=== PATIENT | female | born 1955 | race American Indian/Alaskan Native ===

== ENCOUNTER 2017-03-19 23:41 | Inpatient (IN) | payer BC ==
[2017-03-20 00:36] LABS: BASO % 0.3 % (0.0-2.0); EOS % 0.1 % (0.0-4.0); HEMOGLOBIN 10.7 g/dL (11.0-16.0); LYMPH # 0.6 K/uL (1.0-4.3); LYMPH % 6.5 % (20.0-40.0); MEAN CELL VOLUME 87.6 fL (81.0-99.0); MEAN PLATELET VOLUME 8.5 fL (7.2-11.7); NEUT # 7.2 K/uL (1.8-7.0); NEUT % 82.1 % (50.0-75.0); NRBC % 1.6 % (0.0-2.0); PLATELET COUNT 88 K/uL (130-400); RBC 3.82 Mil/uL (3.80-5.20); RED CELL DISTRIBUTION WIDTH 21.5 % (11.5-14.5); WHITE BLOOD COUNT 8.8 K/uL (4.8-10.8)
[2017-03-20 00:40] LABS: VENOUS BLOOD GAS BASE EXCESS 3.3 mmol/L (0.0-2.0); VENOUS BLOOD GAS PCO2 48 mmHg (40-60); VENOUS BLOOD GAS PO2 35 mm/Hg (30-55); VENOUS BLOOD PH 7.39 (7.32-7.43)
[2017-03-20] MEDS ORDERED: Lactated Ringer's 1,000 ML IVB STA (00:44)
[2017-03-20 00:49] LABS: B-TYPE NATRIURETIC PEPTIDE 3190 pg/mL (0-900)
--- NOTE | 2017-03-20 00:55 | C.PDOC ---
Time Seen by Provider: 03/19/17 23:52 Chief Complaint (Nursing): Weakness/Neurological Deficit History Per: Patient, Family Onset/Duration Of Symptoms: Days (few) Current Symptoms Are (Timing): Worse Current Symptoms: Pain in legs. Generalized weakness. Seizure Or Post-ictal Symptoms: None Possible Causative Factor(s): Diurectics, Decreased PO Intake Fall Associated With With Symptoms: No Severity: Severe Recent travel outside of the [place]: No Additional History Per: Prior Records - Symptoms Of CVA Associated Symptoms: Decreased Ability To Walk. denies: Impaired Speech, Seizure Activity, New Vision Deficit(Left), New Vision Deficit(Right), New Confusion Current Coumadin Use?: No Recent Head Trauma: No Past Medical History Reviewed: Historical Data, Nursing Documentation, Vital Signs Vital Signs: Last Vital Signs Temp 102.3 F H 03/20/17 00:53 Pulse 120 H 03/19/17 23:42 Resp 28 H 03/19/17 23:42 BP 128/86 03/19/17 23:42 Pulse Ox - Medical History PMH: CHF (?), HTN, Rheumatoid Arthritis Other PMH: Lupus Surgical History: No Surg Hx Family History: States: Unknown Family Hx - Social History Hx Alcohol Use: No Hx Substance Use: No Review Of Systems Except As Marked, All Systems Reviewed And Found Negative. Constitutional: Positive for: Chills (?), Weakness Cardiovascular: Negative for: Chest Pain Respiratory: Negative for: Shortness of Breath Gastrointestinal: Positive for: Diarrhea (?). Negative for: Vomiting, Abdominal Pain Musculoskeletal: Positive for: Leg Pain (b/l). Negative for: Neck Pain, Back Pain Neurological: Negative for: Numbness, Confusion, Seizures, Altered Mental Status , Headache Physical Exam - Physical Exam Appears: In Acute Distress, Chronically Ill Skin: Normal Color, Warm, Dry Head: Atraumatic Eye(s): bilateral: PERRL, EOMI Oral Mucosa: Dry Neck: Normal ROM, Supple Cardiovascular: Rhythm Regular (tachycardia) Respiratory: Normal Breath Sounds, No Accessory Muscle Use Gastrointestinal/Abdominal: Soft, No Tenderness Back: No CVA Tenderness, Other (Stage 2 sacral ulcers) Extremity: Normal ROM, Pedal Edema (b/l), Calf Tenderness (b/l) Neurological/Psych: Oriented x3, Normal Sensation, Other (Moving all extremites) Gait: Unable To Assess ED Course And Treatment - Laboratory Results Result Diagrams: 03/20/17 00:33 03/20/17 00:19 ECG: Interpreted By Me, Viewed By Me ECG Rhythm: Sinus Tachycardia, Nonspecific Changes ECG Interpretation: Abnormal Interpretation Of ECG: Artifacts due to tremor Rate From EC - Radiology CXR: Interpreted by Me, Viewed By Me CXR Interpretation: Yes: No Acute Disease Progress Note: Pt was found to be hypoglycemic upon ED arrival. Pt was given juice. Disposition - Disposition Disposition Time: 01:00 Condition: SERIOUS - Clinical Impression Clinical Impression: Hypoglycemia, Fever, Leg pain, bilateral Physician Patient Turnover Patient Signed Over To: Tristin Murillo Handoff Comments: to f/up labs and reassess pt after fluids and order antibiotic based on source of infection.
[2017-03-20 00:58] LABS: ALB/GLOB RATIO 0.7 (1.0-2.1); ALBUMIN 3.2 g/dL (3.5-5.0); ALT/SGPT 59 U/L (9-52); AST/SGOT 96 U/L (14-36); BLOOD UREA NITROGEN 69 mg/dL (7-17); CALCIUM 8.5 mg/dl (8.6-10.4); GFR AFRICAN-AMERICAN > 60; GFR NON-AFRICAN AMERICAN 50
[2017-03-20 01:02] LABS: INR 1.3; PROTHROMBIN TIME 14.8 SECONDS (9.7-12.2)
[2017-03-20 01:29] LABS: SQUAMOUS EPITHIAL 4 /hpf (0-5); URINE AMORPHOUS SEDIMENT OCC /ul (<OCC); URINE BILIRUBIN NEGATIVE (NEGATIVE); URINE BLOOD 1+ (NEGATIVE); URINE CLARITY Hazy (Clear); URINE COLOR Yellow (YELLOW); URINE GLUCOSE (UA) NORMAL (Normal); URINE LEUKOCYTE ESTERASE 3+ Leu/uL (Negative); URINE NITRATE NEGATIVE (NEGATIVE); URINE PROTEIN NEGATIVE (NEGATIVE); URINE UROBILINOGEN NORMAL mg/dL (0.2-1.0)
[2017-03-20 01:37] LABS: BANDS 4 % (0-2); LYMPHOCYTE 7 % (20-40); MONOCYTE 7 % (0-10); NEUTROPHIL 82 % (50-75); NUCLEATED RED BLOOD CELL 1 % (0-0); PLATELET ESTIMATE DECREASED (NORMAL); TOTAL CELLS COUNTED 100
[2017-03-20] MEDS ORDERED: Moxifloxacin IV 400mg/250ml NS 400 MG/250 ML BAG IVPB ONE ×2 (02:13→02:22)
[2017-03-20 02:36] LABS: FREE T4 2.22 ng/dL (0.78-2.19)
[2017-03-20] MEDS ORDERED: Lactated Ringer's 1,000 ML IV ONE (02:58)
[2017-03-20] MEDS ORDERED: Vancomycin 1 gm/NS 200 ml 1 GM/200 ML BAG IVPB STA (03:10)
[2017-03-20 04:11] LABS: VENOUS BLOOD GAS BASE EXCESS 3.3 mmol/L (0.0-2.0); VENOUS BLOOD GAS PCO2 41 mmHg (40-60); VENOUS BLOOD GAS PO2 23 mm/Hg (30-55); VENOUS BLOOD PH 7.44 (7.32-7.43)
[2017-03-20 04:19] LABS: INR 1.4; PROTHROMBIN TIME 16.2 SECONDS (9.7-12.2)
[2017-03-20 04:58] LABS: BASO % 0.4 % (0.0-2.0); EOS % 0.1 % (0.0-4.0); LYMPH # 0.3 K/uL (1.0-4.3); LYMPH % 3.8 % (20.0-40.0); MEAN CELL VOLUME 87.5 fL (81.0-99.0); MEAN CORPUSCULAR HEMOGLOBIN 27.8 pg (27.0-31.0); MEAN CORPUSCULAR HGB CONC 31.8 g/dL (33.0-37.0); MEAN PLATELET VOLUME 8.2 fL (7.2-11.7); MONO # 1.2 K/uL (0.0-0.8); MONO % 16.2 % (0.0-10.0); NEUT # 5.8 K/uL (1.8-7.0); NEUT % 79.5 % (50.0-75.0); NRBC % 0.2 % (0.0-2.0); PLATELET COUNT 49 K/uL (130-400); RBC 2.15 Mil/uL (3.80-5.20); RED CELL DISTRIBUTION WIDTH 21.1 % (11.5-14.5); WHITE BLOOD COUNT 7.3 K/uL (4.8-10.8)
[2017-03-20 05:21] LABS: ALB/GLOB RATIO 0.8 (1.0-2.1); ALBUMIN 1.8 g/dL (3.5-5.0); ALT/SGPT 40 U/L (9-52); AST/SGOT 53 U/L (14-36); BLOOD UREA NITROGEN 54 mg/dL (7-17); CALCIUM 6.8 mg/dl (8.6-10.4); GFR AFRICAN-AMERICAN > 60; GFR NON-AFRICAN AMERICAN > 60; MAGNESIUM 1.5 mg/dL (1.6-2.3)
[2017-03-20 05:42] LABS: BANDS 2 % (0-2); BASOPHIL 1 % (0-2); EOSINOPHIL 2 % (0-4); LYMPHOCYTE 20 % (20-40); MONOCYTE 21 % (0-10); NEUTROPHIL 51 % (50-75); PLATELET ESTIMATE MARKEDLY DECREASED (NORMAL); REACTIVE LYMPHOCYTES 3 % (0-0); TOTAL CELLS COUNTED 100
[2017-03-20] MEDS: Aztreonam 2 GM in Sodium Chloride 0.9% 100 ML IVPB SCH ×3 (05:43→19:32)
[2017-03-20] MEDS ORDERED: Sodium Chloride 0.9% 1,000 ML IV ONE (06:03)
--- NOTE | 2017-03-20 06:19 | CP.PCM.CON ---
History of Present Illness - History of Present Illness History of Present Illness: 61 F with h/o lupus on leflunomide and hydroxychloroquine, h/l leg edema on diuretic, came to the ER due to not improving swelling in both the legs, causing severe pain, and difficult in walking. The worsening in the leg swelling with pain has happened for last 3 wks and patient has been on 3 different diuretics but unsure which once she taking. In ER patient had fever of 102, elevated bun, both legs below knees swelling and pain, hypotensive, elevated lactic acid of 5 noticed. Patient given 4 lit of fluid in ER and avelox / vancomycin started. Denies abd/chest/head pain, any cough, patent was unaware any fever at home. PMH as above Surg none Meds above, lasix, hctz/trimtarine/, metolozone, ibuprofen Family history not contributory Social stopped smoking about 10ys back, denies alcohol Allergies PCN, sulfa, was told during childhood she was allergic. Review of Systems - Review of Systems All systems: reviewed and no additional remarkable complaints except (HPI) Past Patient History - Past Medical History & Family History Past Medical History?: Yes - Past Social History Smoking Status: Former Smoker Alcohol: None Drugs: Denies Home Situation {Lives}: With Family Domestic Violence: Negative - CARDIAC Hx Cardiac Disorders: Yes Hx Congestive Heart Failure: Yes Hx Hypertension: Yes - PULMONARY Hx Respiratory Disorders: No - NEUROLOGICAL Hx Neurological Disorder: No - HEENT Hx HEENT Problems: No - RENAL Hx Chronic Kidney Disease: No - ENDOCRINE/METABOLIC Hx Endocrine Disorders: Yes Hx Systemic Lupus Erythematosus: Yes - HEMATOLOGICAL/ONCOLOGICAL Hx Blood Disorders: No - INTEGUMENTARY Hx Dermatological Problems: Yes Other/Comment: multiple open wound bilateral buttocks and right thigh - MUSCULOSKELETAL/RHEUMATOLOGICAL Hx Musculoskeletal Disorders: Yes Hx Falls: Yes Hx Rheumatoid Arthritis: Yes - GASTROINTESTINAL Hx Gastrointestinal Disorders: No - GENITOURINARY/GYNECOLOGICAL Hx Genitourinary Disorders: No - PSYCHIATRIC Hx Psychophysiologic Disorder: No Hx Substance Use: No - SURGICAL HISTORY Hx Surgeries: No - ANESTHESIA Hx Anesthesia: No Meds Allergies/Adverse Reactions: Allergies Allergy/AdvReac Type Severity Reaction Status Date / Time Penicillins Allergy Verified 03/19/17 23:45 Sulfa (Sulfonamide Allergy Verified 03/19/17 23:45 Antibiotics) - Medications Medications: Current Medications Aztreonam 2 gm/ Sodium (Chloride) 100 mls @ 200 mls/hr IVPB Q8H IMAN Last Admin: 03/20/17 05:43 Dose: 200 mls/hr Vancomycin/Sodium Chloride (Vancomycin 1 Gm/Ns 200 Ml) 1 gm in 200 mls @ 133 mls/hr IVPB Q12H IMAN Stop: 03/25/17 15:31 Pantoprazole Sodium (Protonix Ec Tab) 40 mg PO DAILY IMAN Physical Exam - Additional Findings Additional findings: * HEENT ROSENDO, no rigidity * Neck supple * Chest Clear * CVS regular, s1s2, hr in about 110/min * PA soft, nt bs present * Ext swelling tenderness, pitting edema in both left below the knees, also both legs above knee posteriorly she is warm and tender, superficial epidermis peeling noticed in left lower leg. Pulses reduced in both feet. 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, moves all ext, confused about use of the medication and history of the events * Skin dry in upper limbs Results - Vital Signs Recent Vital Signs: Last Vital Signs Temp 99 F 03/20/17 03:40 Pulse 93 H 03/20/17 05:00 Resp 19 03/20/17 05:00 BP 80/41 L 03/20/17 04:35 Pulse Ox 100 03/20/17 05:00 - Labs Result Diagrams: 03/20/17 04:56 03/20/17 04:56 Labs: Laboratory Results - last 24 hr 03/19/17 03/20/17 03/20/17 23:49 00:19 00:19 WBC RBC Hgb Hct MCV MCH MCHC RDW Plt Count MPV Neut % (Auto) Lymph % (Auto) [place] % (Auto) Eos % (Auto) Baso % (Auto) Neut # Lymph # [place] # Eos # Baso # Neutrophils % (Manual) Band Neutrophils % Lymphocytes % (Manual) Reactive Lymphs % Monocytes % (Manual) Eosinophils % (Manual) Basophils % (Manual) Nucleated RBC % Platelet Estimate PT INR APTT pO2 VBG pH VBG pCO2 VBG HCO3 VBG Total CO2 VBG O2 Sat (Calc) VBG Base Excess VBG Potassium Glucose Lactate Crit Value Called To Crit Value Called By Crit Value Read Back Blood Gas Notified Time Sodium 135 Potassium 3.5 L Chloride 91 L Carbon Dioxide 32 H Anion Gap 15 BUN 69 H Creatinine 1.1 Est GFR ( Amer) > 60 Est GFR (Non-Af Amer) 50 POC Glucose (mg/dL) 39 L 61 L Random Glucose 90 Calcium 8.5 L Phosphorus 3.2 Magnesium 2.0 Total Bilirubin 1.6 H AST 96 H ALT 59 H Alkaline Phosphatase 182 H Troponin I 0.0890 C-React Prot High Sens NT-Pro-B Natriuret Pep 3190 H Total Protein 7.8 Albumin 3.2 L Globulin 4.6 H Albumin/Globulin Ratio 0.7 L Free T4 TSH 3rd Generation Cortisol AM Sample Venous Blood Potassium Urine Color Urine Clarity Urine pH Ur Specific [place] Urine Protein Urine Glucose (UA) Urine Ketones Urine Blood Urine Nitrate Urine Bilirubin Urine Urobilinogen Ur Leukocyte Esterase Urine WBC (Auto) Urine RBC (Auto) Ur Squamous Epith Cells Amorphous Sediment 03/20/17 03/20/17 03/20/17 00:24 00:33 00:33 WBC 8.8 RBC 3.82 Hgb 10.7 L Hct 33.5 L MCV 87.6 MCH 28.0 MCHC 32.0 L RDW 21.5 H Plt Count 88 L MPV 8.5 Neut % (Auto) 82.1 H Lymph % (Auto) 6.5 L [place] % (Auto) 11.0 H Eos % (Auto) 0.1 Baso % (Auto) 0.3 Neut # 7.2 H Lymph # 0.6 L [place] # 1.0 H Eos # 0.0 Baso # 0.0 Neutrophils % (Manual) 82 H Band Neutrophils % 4 H Lymphocytes % (Manual) 7 L Reactive Lymphs % Monocytes % (Manual) 7 Eosinophils % (Manual) Basophils % (Manual) Nucleated RBC % 1 H Platelet Estimate Decreased L PT INR APTT pO2 35 VBG pH 7.39 VBG pCO2 48 VBG HCO3 26.7 VBG Total CO2 30.6 H VBG O2 Sat (Calc) 61.3 VBG Base Excess 3.3 H VBG Potassium 2.6 L Glucose 82 Lactate 5.2 H* Crit Value Called To Dr vargas Crit Value Called By Dianelys rodriguez rt Crit Value Read Back Y Blood Gas Notified Time 39 Sodium 138.0 Potassium Chloride 100.0 Carbon Dioxide Anion Gap BUN Creatinine Est GFR ( Amer) Est GFR (Non-Af Amer) POC Glucose (mg/dL) Random Glucose Calcium Phosphorus Magnesium Total Bilirubin AST ALT Alkaline Phosphatase Troponin I C-React Prot High Sens NT-Pro-B Natriuret Pep Total Protein Albumin Globulin Albumin/Globulin Ratio Free T4 2.22 H TSH 3rd Generation 1.65 Cortisol AM Sample Venous Blood Potassium 2.6 L Urine Color Urine Clarity Urine pH Ur Specific [place] Urine Protein Urine Glucose (UA) Urine Ketones Urine Blood Urine Nitrate Urine Bilirubin Urine Urobilinogen Ur Leukocyte Esterase Urine WBC (Auto) Urine RBC (Auto) Ur Squamous Epith Cells Amorphous Sediment 03/20/17 03/20/17 03/20/17 00:33 00:45 01:22 WBC RBC Hgb Hct MCV MCH MCHC RDW Plt Count MPV Neut % (Auto) Lymph % (Auto) [place] % (Auto) Eos % (Auto) Baso % (Auto) Neut # Lymph # [place] # Eos # Baso # Neutrophils % (Manual) Band Neutrophils % Lymphocytes % (Manual) Reactive Lymphs % Monocytes % (Manual) Eosinophils % (Manual) Basophils % (Manual) Nucleated RBC % Platelet Estimate PT 14.8 H INR 1.3 APTT 33 pO2 VBG pH VBG pCO2 VBG HCO3 VBG Total CO2 VBG O2 Sat (Calc) VBG Base Excess VBG Potassium Glucose Lactate Crit Value Called To Crit Value Called By Crit Value Read Back Blood Gas Notified Time Sodium Potassium Chloride Carbon Dioxide Anion Gap BUN Creatinine Est GFR ( Amer) Est GFR (Non-Af Amer) POC Glucose (mg/dL) 84 Random Glucose Calcium Phosphorus Magnesium Total Bilirubin AST ALT Alkaline Phosphatase Troponin I C-React Prot High Sens NT-Pro-B Natriuret Pep Total Protein Albumin Globulin Albumin/Globulin Ratio Free T4 TSH 3rd Generation Cortisol AM Sample Venous Blood Potassium Urine Color Yellow Urine Clarity Hazy Urine pH 5.0 Ur Specific [place] 1.013 Urine Protein Negative Urine Glucose (UA) Normal Urine Ketones Negative Urine Blood 1+ H Urine Nitrate Negative Urine Bilirubin Negative Urine Urobilinogen Normal Ur Leukocyte Esterase 3+ H Urine WBC (Auto) 9 H Urine RBC (Auto) 21 H Ur Squamous Epith Cells 4 Amorphous Sediment Occ H 03/20/17 03/20/17 03/20/17 02:16 04:08 04:08 WBC RBC Hgb Hct MCV MCH MCHC RDW Plt Count MPV Neut % (Auto) Lymph % (Auto) [place] % (Auto) Eos % (Auto) Baso % (Auto) Neut # Lymph # [place] # Eos # Baso # Neutrophils % (Manual) Band Neutrophils % Lymphocytes % (Manual) Reactive Lymphs % Monocytes % (Manual) Eosinophils % (Manual) Basophils % (Manual) Nucleated RBC % Platelet Estimate PT INR APTT pO2 23 L VBG pH 7.44 H VBG pCO2 41 VBG HCO3 26.0 VBG Total CO2 29.1 H VBG O2 Sat (Calc) 35.7 L VBG Base Excess 3.3 H VBG Potassium 2.5 L* Glucose 96 Lactate 5.7 H* Crit Value Called To [place] de rn Crit Value Called By Paz machine cloth measurer Crit Value Read Back Y Blood Gas Notified Time 411 Sodium 132.0 Potassium Chloride 99.0 Carbon Dioxide Anion Gap BUN Creatinine Est GFR ( Amer) Est GFR (Non-Af Amer) POC Glucose (mg/dL) 132 H Random Glucose Calcium Phosphorus Magnesium Total Bilirubin AST ALT Alkaline Phosphatase Troponin I C-React Prot High Sens NT-Pro-B Natriuret Pep Total Protein Albumin Globulin Albumin/Globulin Ratio Free T4 TSH 3rd Generation Cortisol AM Sample 27.7 H Venous Blood Potassium 2.5 L* Urine Color Urine Clarity Urine pH Ur Specific [place] Urine Protein Urine Glucose (UA) Urine Ketones Urine Blood Urine Nitrate Urine Bilirubin Urine Urobilinogen Ur Leukocyte Esterase Urine WBC (Auto) Urine RBC (Auto) Ur Squamous Epith Cells Amorphous Sediment 03/20/17 03/20/17 03/20/17 04:08 04:08 04:56 WBC 7.3 RBC 2.15 L Hgb 6.0 L* D Hct 18.8 L MCV 87.5 MCH 27.8 MCHC 31.8 L RDW 21.1 H Plt Count 49 L D MPV 8.2 Neut % (Auto) 79.5 H Lymph % (Auto) 3.8 L [place] % (Auto) 16.2 H Eos % (Auto) 0.1 Baso % (Auto) 0.4 Neut # 5.8 Lymph # 0.3 L [place] # 1.2 H Eos # 0.0 Baso # 0.0 Neutrophils % (Manual) 51 Band Neutrophils % 2 Lymphocytes % (Manual) 20 Reactive Lymphs % 3 H Monocytes % (Manual) 21 H Eosinophils % (Manual) 2 Basophils % (Manual) 1 Nucleated RBC % Platelet Estimate Markedly decreased L PT 16.2 H INR 1.4 APTT 38 H D pO2 VBG pH VBG pCO2 VBG HCO3 VBG Total CO2 VBG O2 Sat (Calc) VBG Base Excess VBG Potassium Glucose Lactate Crit Value Called To Crit Value Called By Crit Value Read Back Blood Gas Notified Time Sodium Potassium Chloride Carbon Dioxide Anion Gap BUN Creatinine Est GFR ( Amer) Est GFR (Non-Af Amer) POC Glucose (mg/dL) Random Glucose Calcium Phosphorus Magnesium Total Bilirubin AST ALT Alkaline Phosphatase Troponin I C-React Prot High Sens > 15.00 H NT-Pro-B Natriuret Pep Total Protein Albumin Globulin Albumin/Globulin Ratio Free T4 TSH 3rd Generation Cortisol AM Sample Venous Blood Potassium Urine Color Urine Clarity Urine pH Ur Specific [place] Urine Protein Urine Glucose (UA) Urine Ketones Urine Blood Urine Nitrate Urine Bilirubin Urine Urobilinogen Ur Leukocyte Esterase Urine WBC (Auto) Urine RBC (Auto) Ur Squamous Epith Cells Amorphous Sediment 03/20/17 04:56 WBC RBC Hgb Hct MCV MCH MCHC RDW Plt Count MPV Neut % (Auto) Lymph % (Auto) [place] % (Auto) Eos % (Auto) Baso % (Auto) Neut # Lymph # [place] # Eos # Baso # Neutrophils % (Manual) Band Neutrophils % Lymphocytes % (Manual) Reactive Lymphs % Monocytes % (Manual) Eosinophils % (Manual) Basophils % (Manual) Nucleated RBC % Platelet Estimate PT INR APTT pO2 VBG pH VBG pCO2 VBG HCO3 VBG Total CO2 VBG O2 Sat (Calc) VBG Base Excess VBG Potassium Glucose Lactate Crit Value Called To Crit Value Called By Crit Value Read Back Blood Gas Notified Time Sodium 128 L Potassium 2.3 L* D Chloride 95 L Carbon Dioxide 28 Anion Gap 7 L BUN 54 H Creatinine 0.9 Est GFR ( Amer) > 60 Est GFR (Non-Af Amer) > 60 POC Glucose (mg/dL) Random Glucose 84 Calcium 6.8 L Phosphorus Magnesium 1.5 L Total Bilirubin 0.7 AST 53 H D ALT 40 Alkaline Phosphatase 94 Troponin I C-React Prot High Sens NT-Pro-B Natriuret Pep Total Protein 4.0 L Albumin 1.8 L D Globulin 2.2 Albumin/Globulin Ratio 0.8 L Free T4 TSH 3rd Generation Cortisol AM Sample Venous Blood Potassium Urine Color Urine Clarity Urine pH Ur Specific [place] Urine Protein Urine Glucose (UA) Urine Ketones Urine Blood Urine Nitrate Urine Bilirubin Urine Urobilinogen Ur Leukocyte Esterase Urine WBC (Auto) Urine RBC (Auto) Ur Squamous Epith Cells Amorphous Sediment Assessment & Plan - Assessment and Plan (Free Text) Assessment: * Sepsis suspected source cellulitis in both legs dd of bactermia form this site vs another * H/o lupus on treatment hence immunocompromised * B/l leg edema DD of dvt, venous insufficiency, need r/o compression in the abd , heart failure * Thrombocytopenia Plan: * Fluid bolus * Broad spectrum abx * Venous doppler, Echo, may need CT imaging * Repeat labs * GI DVT prophylaxis, after confirming plt, pt/ptt * hold lupus meds, w/u DRE, eser, CRP, ds dna, RF, antiphospholipid ab * Cental line as patient has poor access. * See orders for detail.
--- NOTE | 2017-03-20 07:27 | PCM.PROC ---
Procedures Attestation:: I certify that I have explained the specified Operation(s) or Procedure(s), risks, benefits and reasonable alternatives to the Patient and/or other person responsible. The opportunity was given to ask questions and all questions answered - Central Line Placement Left Internal Jugular Aseptic technique was employed throughout the procedure: Hand Hygiene done prior to procedure, Full sterile barriers (mask, hair cover, sterile gown, sterile gloves), Full body sterile drape, Chloraprep Antiseptic: 30 second prep for IJ or SC sites CVP Time Out Performed: Yes Pt. Placed on Pulse Ox Monitor: Yes Central Line Prep: Chlorhexidine-Alcohol Combination Ultrasound Used for Placement: Yes Central Line Lumen Inserted: triple Central Line Length: 16 cm Post Procedure: Sutured in Place, Good Blood Return, All Ports Aspirated, Flushed, Capped, Sterile Dressing Applied Secured by: Suture Post procedure dressing: Chlorhexidine disc (Biopatch) Post Procedure X-Ray: Yes Patient Tolerated Procedure: Well (Consent obtained from patient and son, but son signed upon patient's request.) Immediate Complications: None Additional Comments: Consent obtained from patient and son, but son signed upon patient's request. Xray reviewed by me tip of tlc at junction of SVC and RA. No pneumothorax. Informed nurse it could be used.
[2017-03-20 08:10] LABS: BASO % 0.3 % (0.0-2.0); EOS % 0.2 % (0.0-4.0); LYMPH # 0.4 K/uL (1.0-4.3); LYMPH % 5.5 % (20.0-40.0); MEAN CELL VOLUME 86.2 fL (81.0-99.0); MEAN CORPUSCULAR HEMOGLOBIN 28.3 pg (27.0-31.0); MEAN CORPUSCULAR HGB CONC 32.9 g/dL (33.0-37.0); MEAN PLATELET VOLUME 8.1 fL (7.2-11.7); MONO # 1.2 K/uL (0.0-0.8); MONO % 17.7 % (0.0-10.0); NEUT # 5.2 K/uL (1.8-7.0); NEUT % 76.3 % (50.0-75.0); NRBC % 0.3 % (0.0-2.0); RBC 2.05 Mil/uL (3.80-5.20); RED CELL DISTRIBUTION WIDTH 21.6 % (11.5-14.5); WHITE BLOOD COUNT 6.8 K/uL (4.8-10.8)
[2017-03-20 08:18] LABS: HEMOGLOBIN 5.8 g/dL (11.0-16.0)
--- NOTE | 2017-03-20 08:23 | PCM.SEPTIC ---
Sepsis Progress Note - Reassessment Type Date of Evaluation: 03/20/17 Time of Evaluation: 08:11 Reassessment Type: Non-invasive reassessment - Non Invasive Reassessment Were the most recent vital sign reviewed: Yes Vital Sign (Latest): Temp Pulse Resp BP Pulse Ox 97.4 F L 95 H 30 H 88/50 L 100 03/20/17 07:42 03/20/17 07:00 03/20/17 07:00 03/20/17 06:32 03/20/17 07:00 Cardiovascular: Yes: Regular Rate, Rhythm Respiratory: Yes: Normal Breath Sounds Capillary Refill: Normal (Less than 2 sec) Pulses: Normal Radial, Normal Dorsalis Pedis, Normal Posterior Tibialis Skin: Normal Color, Warm, Dry
--- NOTE | 2017-03-20 08:32 | RAD ---
HISTORY: s/p left IJ TLC insertion COMPARISON: 03/20/2017 at 00:42 a.m. FINDINGS: The left IJV line terminates in the SVC. LUNGS: There is interval development of significant pulmonary venous congestion and interstitial pulmonary edema. PLEURA: Suspect small pleural effusions, no pneumothorax apparent. CARDIOVASCULAR: The heart is enlarged. There is fluid in the minor fissure. OSSEOUS STRUCTURES: No significant abnormalities. VISUALIZED UPPER ABDOMEN: Normal. OTHER FINDINGS: None. IMPRESSION: Interval development of severe pulmonary venous congestion and interstitial pulmonary edema with presumable small pleural effusions. The left IJV line terminates in the SVC.
--- NOTE | 2017-03-20 08:36 | RAD ---
HISTORY: Hypoglycemia COMPARISON: No prior. FINDINGS: LUNGS: The right lung is clear. There is consolidation in the left lower lobe. PLEURA: No significant pleural effusion identified, no pneumothorax apparent. CARDIOVASCULAR: Normal. OSSEOUS STRUCTURES: No significant abnormalities. VISUALIZED UPPER ABDOMEN: Normal. OTHER FINDINGS: None. IMPRESSION: Left lower lobe pneumonia. Follow-up after medical management is recommended to ensure complete resolution.
[2017-03-20 08:56] LABS: ALB/GLOB RATIO 0.8 (1.0-2.1); ALBUMIN 1.8 g/dL (3.5-5.0); ALT/SGPT 43 U/L (9-52); AST/SGOT 49 U/L (14-36); BLOOD UREA NITROGEN 50 mg/dL (7-17); CALCIUM 6.8 mg/dl (8.6-10.4); GFR AFRICAN-AMERICAN > 60; GFR NON-AFRICAN AMERICAN > 60; MAGNESIUM 1.5 mg/dL (1.6-2.3)
[2017-03-20 09:54] LABS: BASO % 0.5 % (0.0-2.0); EOS % 0.3 % (0.0-4.0); LYMPH # 0.5 K/uL (1.0-4.3); LYMPH % 7.4 % (20.0-40.0); MEAN CORPUSCULAR HEMOGLOBIN 27.7 pg (27.0-31.0); MEAN CORPUSCULAR HGB CONC 31.8 g/dL (33.0-37.0); MEAN PLATELET VOLUME 7.7 fL (7.2-11.7); MONO # 1.2 K/uL (0.0-0.8); MONO % 16.4 % (0.0-10.0); NEUT # 5.5 K/uL (1.8-7.0); NEUT % 75.4 % (50.0-75.0); NRBC % 0.1 % (0.0-2.0); PLATELET COUNT 46 K/uL (130-400); RBC 2.15 Mil/uL (3.80-5.20); RED CELL DISTRIBUTION WIDTH 21.2 % (11.5-14.5); WHITE BLOOD COUNT 7.3 K/uL (4.8-10.8)
[2017-03-20] MEDS: Pantoprazole 40 mg EC Tab PO SCH (10:20)
[2017-03-20] MEDS: Sodium Chloride 0.9% 1,000 ML IV SCH ×2 (10:20→20:13)
[2017-03-20 10:23] LABS: BLOOD UREA NITROGEN 48 mg/dL (7-17); CALCIUM 6.9 mg/dl (8.6-10.4); GFR AFRICAN-AMERICAN > 60; GFR NON-AFRICAN AMERICAN 56
[2017-03-20] MEDS ORDERED: Potassium Chloride 20 mEq ER Tab PO ONE (10:30)
--- NOTE | 2017-03-20 10:48 | VASCLAB ---
PROCEDURE: Lower Extremity Venous Duplex Exam. HISTORY: Leg swelling PRIORS: Last exam 12/01/2008, normal. TECHNIQUE: Bilateral common femoral, femoral, popliteal and posterior tibial, peroneal and great saphenous veins were evaluated. Flow was assessed with color Doppler, compressibility, assessment of phasic flow and augmentation response. Report prepared by MICHELLE Grewal FINDINGS: RIGHT: 1. Common Femoral Vein: 1.1. Compressibility - Fully compressible: Thrombus - None : Flow - Phasic: Augmentation -Normal: Reflux - None. 2. Femoral Vein: 2.1. Compressibility - Fully compressible: Thrombus - None : Flow - Phasic: Augmentation -Normal: Reflux - None. 3. Popliteal Vein: 3.1. Compressibility - Fully compressible: Thrombus - None : Flow - Phasic: Augmentation -Normal: Reflux - None. 4. Posterior Tibial Vein: (analyzed by color fill only) 4.1. Compressibility - n/a Thrombus - None: Flow - Phasic: Augmentation -Normal: Reflux - None. 5. Peroneal Vein: 5.1. Unable to visualize due to swelling. 6. Great Saphenous Vein: 6.1. Compressibility - Fully compressible: Thrombus - None: Flow - Phasic: Augmentation - Normal: Reflux - None. LEFT: 1. Common Femoral Vein: 1.1. Compressibility - Fully compressible: Thrombus - None: Flow - Phasic: Augmentation -Normal: Reflux - None. 2. Femoral Vein: 2.1. Compressibility - Fully compressible: Thrombus - None: Flow - Phasic: Augmentation -Normal: Reflux - None. 3. Popliteal Vein: 3.1. Compressibility - Fully compressible: Thrombus - None : Flow - Phasic: Augmentation -Normal: Reflux - None. 4. Posterior Tibial Vein: 4.1. Unable to visualize due to swelling. 5. Peroneal Vein: 5.1. Unable to visualize due to swelling. 6. Great Saphenous Vein: 6.1. Compressibility - Fully compressible: Thrombus - None: Flow - Phasic: Augmentation - Normal: Reflux - None. OTHER FINDINGS: Right: Unable to compress the veins below knee, due to patient intolerance to pain.The posterior tibial veins appear patent by color doppler. The peroneal veins were not visible, due to swelling. Left: The posterior tibial and peroneal veins were not visible, due to swelling. IMPRESSION: Right: No evidence of deep or superficial vein thrombosis of the right lower extremity, for those imaged veins. Left: No evidence of deep or superficial vein thrombosis of the left lower extremity, for those imaged veins.
[2017-03-20 10:50] LABS: ANISOCYTOSIS MODERATE; BANDS 8 % (0-2); HYPOCHROMIC SLIGHT; LYMPHOCYTE 6 % (20-40); MONOCYTE 11 % (0-10); NEUTROPHIL 74 % (50-75); PLATELET ESTIMATE DECREASED (NORMAL); REACTIVE LYMPHOCYTES 1 % (0-0); TOTAL CELLS COUNTED 100
[2017-03-20] MEDS ORDERED: Magnesium Sulfate 1 gm in D5W 1 GM/100 ML BAG IVPB ONE (11:09)
[2017-03-20] MEDS: MethylPREDNISolone 40 mg Vial IVP SCH ×2 (11:21→21:58)
--- NOTE | 2017-03-20 11:39 | CP.PCM.CON ---
History of Present Illness - History of Present Illness History of Present Illness: SEEN IN icu FOR SUSPECTED SEPSIS DISCUSSED WITH FAMILY IV ANTIBIOTICS IN PROGRESS 61 F with h/o lupus on leflunomide and hydroxychloroquine, h/l leg edema on diuretic, came to the ER due to not improving swelling in both the legs, causing severe pain, and difficult in walking. The worsening in the leg swelling with pain has happened for last 3 wks and patient has been on 3 different diuretics but unsure which once she taking. In ER patient had fever of 102, elevated bun, both legs below knees swelling and pain, hypotensive, elevated lactic acid of 5 noticed. Patient given 4 lit of fluid in ER and avelox / vancomycin started. Denies abd/chest/head pain, any cough, patent was unaware any fever at home. PMH as above Surg none Meds above, lasix, hctz/trimtarine/, metolozone, ibuprofen Family history not contributory Social stopped smoking about 10ys back, denies alcohol Allergies PCN, sulfa, was told during childhood she was allergic. Review of Systems - Review of Systems Systems not reviewed;Unavailable: Acuity of Condition, Altered Mental Status - Constitutional Constitutional: As Per HPI - EENT Eyes: absent: As Per HPI, Blind Spots, Blurred Vision, Change in Vision, Decreased Night Vision, Diplopia, Discharge, Dry Eye, Exophthalmos, Floaters, Irritation, Itchy Eyes, Loss of Peripheral Vision, Pain, Photophobia, Requires Corrective Lenses, Sees Flashes, Spots in Vision, Tunnel Vision, Other Visual Disturbances, Loss of Vision, Other Ears: absent: As Per HPI, Decreased Hearing, Ear Discharge, Ear Pain, Tinnitus, Abnormal Hearing, Disequilibrium, Dizziness, Other Nose/Mouth/Throat: absent: As Per HPI, Epistaxis, Nasal Congestion, Nasal Discharge, Nasal Obstruction, Nasal Trauma, Nose Pain, Post Nasal Drip, Sinus Pain, Sinus Pressure, Bleeding Gums, Change in Voice, Dental Pain, Dry Mouth, Dysphagia, Halitosis, Hoarsness, Lip Swelling, Mouth Lesions, Mouth Pain, Odynophagia, Sore Throat, Throat Swelling, Tongue Swelling, Facial Pain, Neck Pain, Neck Mass, Other - Breasts Breasts: absent: As Per HPI, Change in Shape, Mass, Pain, Nipple Discharge, Nipple Inversion, Skin Changes, Swelling, Other - Cardiovascular Cardiovascular: absent: As Per HPI, Acrocyanosis, Chest Pain, Chest Pain at Rest , Chest Pain with Activity, Claudication, Diaphoresis, Dyspnea, Dyspnea on Exertion, Edema, Irregular Heart Rhythm, Pain Radiating to Arm/Neck/Jaw, Leg Edema, Leg Ulcers, Lightheadedness, Orthopnea, Palpitations, Paroxysmal Nocturnal Dyspnea, Pedal Edema, Radiating Pain, Rapid Heart Rate, Slow Heart Rate, Syncope, Other - Respiratory Respiratory: absent: As Per HPI, Cough, Dyspnea, Hemoptysis, Dyspnea on Exertion , Wheezing, Snoring, Stridor, Pain on Inspiration, Chest Congestion, Excessive Mucous Production, Change in Mucous Color, Pain with Coughing, Other - Gastrointestinal Gastrointestinal: absent: As Per HPI, Abdominal Pain, Belching, Bloating, Change in Bowel Habits, Change in Stool Character, Coffee Ground Emesis, Constipation, Cramping, Diarrhea, Dyspepsia, Dysphagia, Early Satiety, Excessive Flatus, Fecal Incontinence, Heartburn, Hematemesis, Hematochezia, Loose Stools, Melena, Nausea, Odynophagia, Temesmus, Vomiting, Other - Genitourinary Genitourinary: absent: As Per HPI, Change in Urinary Stream, Difficulty Urinating, Dysuria, Flank Pain, Hematuria, Pyuria, Nocturia, Urinary Incontinence, Urinary Frequency, Urinary Hesitance, Urinary Urgency, Voiding Freq/Small Amts, Freq UTI, Hx Renal/Bladder Calculi, Hx /Renal Surgery, Bladder Distension, Other - Reproductive: Female Reproductive:Female: absent: As Per HPI, Amenorrhea, Amenorrhea/ Control, Currently Menstual, Cycle <21 Days, Cycle >35 Days, Cycle Variable, Menses 1-7 Days, Menses >/= 8 Days, Menses Variable, Cycle > 4 Weeks Between, No Menses for 6 Months, Heavy Menses, Light Menses, Normal Menses, Spotting Between Cycles , S/P Hysterectomy, Menopausal, Post Menopausal, Premenarche, Abnormal Vaginal Bleeding, Dysmenorrhea, Dyspareunia, Genital Lesions, Genital Pruritis, Pelvic Pain, Prolapse Symptoms, Sexual Dysfunction, Vaginal Discharge, Vaginal Dryness , Vaginal Odor, Vaginal Pruritis, Other - Menstruation Menstruation: absent: As Per HPI, Amenorrhea, Amenorrhea/ Control, Currently Menstual, Cycle <21 Days, Cycle >35 Days, Cycle Variable, Menses 1-7 Days, Menses >/= 8 Days, Menses Variable, Cycle > 4 Weeks Between, No Menses for 6 Months, Heavy Menses, Light Menses, Normal Menses, Spotting Between Cycles , S/P Hysterectomy, Menopausal, Post Menopausal, Premenarche, Abnormal Vaginal Bleeding, Dysmenorrhea, Other - Musculoskeletal Musculoskeletal: absent: As Per HPI, Abnormal Gait, Arthralgias, Atrophy, Back Pain, Deformity, Joint Swelling, Limited Range of Motion, Loss of Height, Muscle Cramps, Muscle Weakness, Myalgias, Neck Pain, Numbness, Radiating Pain into Limb, Stiffness, Tingling, Other - Integumentary Integumentary: absent: As Per HPI, Acne, Alopecia, Bleeding Lesions, Change in Hair, Change in Nails, Change in Pigmentation, Changing Lesions, Dry Skin, Erythema, Furuncle, Hirsutism, Lesions, New Lesions, Non-Healing Lesions, Photosensitivity, Pruritus, Rash, Skin Pain, Skin Ulcer, Sores, Striae, Swelling , Unusual Bruising, Wounds, Jaundice, Other - Neurological Neurological: absent: As Per HPI, Abnormal Gait, Abnormal Hearing, Abnormal Movements, Abnormal Speech, Behavioral Changes, Burning Sensations, Confusion, Convulsions, Disequilibrium, Dizziness, Numbness, Focal Weakness, Frequent Falls , Headaches, Lack of Coordination, Loss of Vision, Memory Loss, Paresthesias, Radicular Pain, Restless Legs, Sensory Deficit, Syncope, Tingling, Tremor, Vertigo, Weakness, Other Visual Disturbances, Other - Psychiatric Psychiatric: absent: As Per HPI, Abnormal Sleep Pattern, Anhedonia, Anxiety, Auditory Hallucinations, Behavioral Changes, Change in Appetite, Change in Libido, Confusion, Depression, Difficulty Concentrating, Hallucinations, Homicidal Ideation, Hopelessness, Irritability, Memory Loss, Mood Swings, Panic Attacks, Paranoia, Suicidal Ideation, Visual Hallucinations, Tactile Hallucinations, Other - Endocrine Endocrine: absent: As Per HPI, Change in Body Appearance, Change in Libido, Cold Intolorance, Deepening of Voice, Excessive Sweating, Fatigue, Flushing, Heat Intolorance, Increase in Ring/Shoe/Hat Size, Palpitations, Polydipsia, Polyphagia, Polyuria, Other - Hematologic/Lymphatic Hematologic: absent: As Per HPI, Easy Bleeding, Easy Bruising, Lymphadenopathy, Other Past Patient History - Past Medical History & Family History Past Medical History?: Yes - Past Social History Smoking Status: Former Smoker Alcohol: None Drugs: Denies Home Situation {Lives}: With Family Domestic Violence: Negative - CARDIAC Hx Cardiac Disorders: Yes Hx Congestive Heart Failure: Yes Hx Hypertension: Yes - PULMONARY Hx Respiratory Disorders: No - NEUROLOGICAL Hx Neurological Disorder: No - HEENT Hx HEENT Problems: No - RENAL Hx Chronic Kidney Disease: No - ENDOCRINE/METABOLIC Hx Endocrine Disorders: Yes Hx Systemic Lupus Erythematosus: Yes - HEMATOLOGICAL/ONCOLOGICAL Hx Blood Disorders: No - INTEGUMENTARY Hx Dermatological Problems: Yes Other/Comment: multiple open wound bilateral buttocks and right thigh - MUSCULOSKELETAL/RHEUMATOLOGICAL Hx Musculoskeletal Disorders: Yes Hx Falls: Yes Hx Rheumatoid Arthritis: Yes - GASTROINTESTINAL Hx Gastrointestinal Disorders: No - GENITOURINARY/GYNECOLOGICAL Hx Genitourinary Disorders: No - PSYCHIATRIC Hx Psychophysiologic Disorder: No Hx Substance Use: No - SURGICAL HISTORY Hx Surgeries: No - ANESTHESIA Hx Anesthesia: No Meds Allergies/Adverse Reactions: Allergies Allergy/AdvReac Type Severity Reaction Status Date / Time Penicillins Allergy Verified 03/19/17 23:45 Sulfa (Sulfonamide Allergy Verified 03/19/17 23:45 Antibiotics) - Medications Medications: Current Medications Aztreonam 2 gm/ Sodium (Chloride) 100 mls @ 200 mls/hr IVPB Q8H [facility] Last Admin: 03/20/17 05:43 Dose: 200 mls/hr Vancomycin/Sodium Chloride (Vancomycin 1 Gm/Ns 200 Ml) 1 gm in 200 mls @ 133 mls/hr IVPB Q12H [facility] Stop: 03/25/17 15:31 Sodium Chloride (Sodium Chloride 0.9%) 1,000 mls @ 100 mls/hr IV .Q10H [facility] Last Admin: 03/20/17 10:20 Dose: 100 mls/hr Potassium Chloride (Potassium Chloride 20 Meq/100 Ml) 20 meq in 100 mls @ 50 mls/hr IVPB Q2H [facility] Stop: 03/20/17 16:29 Last Admin: 03/20/17 11:10 Dose: 50 mls/hr Methylprednisolone (Solu-Medrol) 40 mg IVP Q12 [facility] Last Admin: 03/20/17 11:21 Dose: 40 mg Pantoprazole Sodium (Protonix Ec Tab) 40 mg PO DAILY [facility] Last Admin: 03/20/17 10:20 Dose: 40 mg Physical Exam - Constitutional Appears: Non-toxic, Confused, Cachectic, Chronically Ill - Head Exam Head Exam: NORMOCEPHALIC - Eye Exam Eye Exam: PERRL - ENT Exam ENT Exam: Mucous Membranes Dry - Neck Exam Neck exam: Negative for: Lymphadenopathy - Respiratory Exam Respiratory Exam: Decreased Breath Sounds - Cardiovascular Exam Cardiovascular Exam: Tachycardia, REGULAR RHYTHM, +S1, +S2 - GI/Abdominal Exam GI & Abdominal Exam: Diminished Bowel Sounds, Soft. absent: Tenderness - Rectal Exam Rectal Exam: Deferred - Exam Exam: NORMAL INSPECTION - Extremities Exam Extremities exam: Positive for: pedal pulses present. Negative for: calf tenderness, pedal edema, tenderness - Back Exam Back exam: absent: CVA tenderness (L), CVA tenderness (R) - Neurological Exam Neurological exam: Alert, Altered, CN II-XII Intact - Psychiatric Exam Psychiatric exam: Depressed - Skin Skin Exam: Dry Results - Vital Signs Recent Vital Signs: Last Vital Signs Temp 97.4 F L 03/20/17 07:42 Pulse 89 03/20/17 10:00 Resp 20 03/20/17 10:00 BP 96/56 L 03/20/17 09:32 Pulse Ox 98 03/20/17 10:00 - Labs Result Diagrams: 03/22/17 07:30 03/22/17 07:30 Labs: Laboratory Results - last 24 hr 03/19/17 03/20/17 03/20/17 23:49 00:19 00:19 WBC RBC Hgb Hct MCV MCH MCHC RDW Plt Count MPV Neut % (Auto) Lymph % (Auto) [place] % (Auto) Eos % (Auto) Baso % (Auto) Neut # Lymph # [place] # Eos # Baso # Neutrophils % (Manual) Band Neutrophils % Lymphocytes % (Manual) Reactive Lymphs % Monocytes % (Manual) Eosinophils % (Manual) Basophils % (Manual) Nucleated RBC % Platelet Estimate Hypochromasia (manual) Anisocytosis (manual) ESR PT INR APTT pO2 VBG pH VBG pCO2 VBG HCO3 VBG Total CO2 VBG O2 Sat (Calc) VBG Base Excess VBG Potassium Glucose Lactate Crit Value Called To Crit Value Called By Crit Value Read Back Blood Gas Notified Time Sodium 135 Potassium 3.5 L Chloride 91 L Carbon Dioxide 32 H Anion Gap 15 BUN 69 H Creatinine 1.1 Est GFR ( Amer) > 60 Est GFR (Non-Af Amer) 50 POC Glucose (mg/dL) 39 L 61 L Random Glucose 90 Calcium 8.5 L Phosphorus 3.2 Magnesium 2.0 Total Bilirubin 1.6 H Direct Bilirubin AST 96 H ALT 59 H Alkaline Phosphatase 182 H Lactate Dehydrogenase Troponin I 0.0890 C-React Prot High Sens NT-Pro-B Natriuret Pep 3190 H Total Protein 7.8 Albumin 3.2 L Globulin 4.6 H Albumin/Globulin Ratio 0.7 L Vitamin B12 Free T4 TSH 3rd Generation Cortisol AM Sample Venous Blood Potassium Urine Color Urine Clarity Urine pH Ur Specific [place] Urine Protein Urine Glucose (UA) Urine Ketones Urine Blood Urine Nitrate Urine Bilirubin Urine Urobilinogen Ur Leukocyte Esterase Urine WBC (Auto) Urine RBC (Auto) Ur Squamous Epith Cells Amorphous Sediment Blood Type 03/20/17 03/20/17 03/20/17 00:24 00:33 00:33 WBC 8.8 RBC 3.82 Hgb 10.7 L Hct 33.5 L MCV 87.6 MCH 28.0 MCHC 32.0 L RDW 21.5 H Plt Count 88 L MPV 8.5 Neut % (Auto) 82.1 H Lymph % (Auto) 6.5 L [place] % (Auto) 11.0 H Eos % (Auto) 0.1 Baso % (Auto) 0.3 Neut # 7.2 H Lymph # 0.6 L [place] # 1.0 H Eos # 0.0 Baso # 0.0 Neutrophils % (Manual) 82 H Band Neutrophils % 4 H Lymphocytes % (Manual) 7 L Reactive Lymphs % Monocytes % (Manual) 7 Eosinophils % (Manual) Basophils % (Manual) Nucleated RBC % 1 H Platelet Estimate Decreased L Hypochromasia (manual) Anisocytosis (manual) ESR PT INR APTT pO2 35 VBG pH 7.39 VBG pCO2 48 VBG HCO3 26.7 VBG Total CO2 30.6 H VBG O2 Sat (Calc) 61.3 VBG Base Excess 3.3 H VBG Potassium 2.6 L Glucose 82 Lactate 5.2 H* Crit Value Called To Dr vargas Crit Value Called By Dianelys rodriguez rt Crit Value Read Back Y Blood Gas Notified Time 39 Sodium 138.0 Potassium Chloride 100.0 Carbon Dioxide Anion Gap BUN Creatinine Est GFR ( Amer) Est GFR (Non-Af Amer) POC Glucose (mg/dL) Random Glucose Calcium Phosphorus Magnesium Total Bilirubin Direct Bilirubin AST ALT Alkaline Phosphatase Lactate Dehydrogenase Troponin I C-React Prot High Sens NT-Pro-B Natriuret Pep Total Protein Albumin Globulin Albumin/Globulin Ratio Vitamin B12 Free T4 2.22 H TSH 3rd Generation 1.65 Cortisol AM Sample Venous Blood Potassium 2.6 L Urine Color Urine Clarity Urine pH Ur Specific [place] Urine Protein Urine Glucose (UA) Urine Ketones Urine Blood Urine Nitrate Urine Bilirubin Urine Urobilinogen Ur Leukocyte Esterase Urine WBC (Auto) Urine RBC (Auto) Ur Squamous Epith Cells Amorphous Sediment Blood Type 03/20/17 03/20/17 03/20/17 00:33 00:45 01:22 WBC RBC Hgb Hct MCV MCH MCHC RDW Plt Count MPV Neut % (Auto) Lymph % (Auto) [place] % (Auto) Eos % (Auto) Baso % (Auto) Neut # Lymph # [place] # Eos # Baso # Neutrophils % (Manual) Band Neutrophils % Lymphocytes % (Manual) Reactive Lymphs % Monocytes % (Manual) Eosinophils % (Manual) Basophils % (Manual) Nucleated RBC % Platelet Estimate Hypochromasia (manual) Anisocytosis (manual) ESR PT 14.8 H INR 1.3 APTT 33 pO2 VBG pH VBG pCO2 VBG HCO3 VBG Total CO2 VBG O2 Sat (Calc) VBG Base Excess VBG Potassium Glucose Lactate Crit Value Called To Crit Value Called By Crit Value Read Back Blood Gas Notified Time Sodium Potassium Chloride Carbon Dioxide Anion Gap BUN Creatinine Est GFR ( Amer) Est GFR (Non-Af Amer) POC Glucose (mg/dL) 84 Random Glucose Calcium Phosphorus Magnesium Total Bilirubin Direct Bilirubin AST ALT Alkaline Phosphatase Lactate Dehydrogenase Troponin I C-React Prot High Sens NT-Pro-B Natriuret Pep Total Protein Albumin Globulin Albumin/Globulin Ratio Vitamin B12 Free T4 TSH 3rd Generation Cortisol AM Sample Venous Blood Potassium Urine Color Yellow Urine Clarity Hazy Urine pH 5.0 Ur Specific [place] 1.013 Urine Protein Negative Urine Glucose (UA) Normal Urine Ketones Negative Urine Blood 1+ H Urine Nitrate Negative Urine Bilirubin Negative Urine Urobilinogen Normal Ur Leukocyte Esterase 3+ H Urine WBC (Auto) 9 H Urine RBC (Auto) 21 H Ur Squamous Epith Cells 4 Amorphous Sediment Occ H Blood Type 03/20/17 03/20/17 03/20/17 02:16 04:08 04:08 WBC RBC Hgb Hct MCV MCH MCHC RDW Plt Count MPV Neut % (Auto) Lymph % (Auto) [place] % (Auto) Eos % (Auto) Baso % (Auto) Neut # Lymph # [place] # Eos # Baso # Neutrophils % (Manual) Band Neutrophils % Lymphocytes % (Manual) Reactive Lymphs % Monocytes % (Manual) Eosinophils % (Manual) Basophils % (Manual) Nucleated RBC % Platelet Estimate Hypochromasia (manual) Anisocytosis (manual) ESR PT INR APTT pO2 23 L VBG pH 7.44 H VBG pCO2 41 VBG HCO3 26.0 VBG Total CO2 29.1 H VBG O2 Sat (Calc) 35.7 L VBG Base Excess 3.3 H VBG Potassium 2.5 L* Glucose 96 Lactate 5.7 H* Crit Value Called To [place] de rn Crit Value Called By [employer] Crit Value Read Back Y Blood Gas Notified Time 411 Sodium 132.0 Potassium Chloride 99.0 Carbon Dioxide Anion Gap BUN Creatinine Est GFR ( Amer) Est GFR (Non-Af Amer) POC Glucose (mg/dL) 132 H Random Glucose Calcium Phosphorus Magnesium Total Bilirubin Direct Bilirubin AST ALT Alkaline Phosphatase Lactate Dehydrogenase Troponin I C-React Prot High Sens NT-Pro-B Natriuret Pep Total Protein Albumin Globulin Albumin/Globulin Ratio Vitamin B12 Free T4 TSH 3rd Generation Cortisol AM Sample 27.7 H Venous Blood Potassium 2.5 L* Urine Color Urine Clarity Urine pH Ur Specific [place] Urine Protein Urine Glucose (UA) Urine Ketones Urine Blood Urine Nitrate Urine Bilirubin Urine Urobilinogen Ur Leukocyte Esterase Urine WBC (Auto) Urine RBC (Auto) Ur Squamous Epith Cells Amorphous Sediment Blood Type 03/20/17 03/20/17 03/20/17 04:08 04:08 04:56 WBC 7.3 RBC 2.15 L Hgb 6.0 L* D Hct 18.8 L MCV 87.5 MCH 27.8 MCHC 31.8 L RDW 21.1 H Plt Count 49 L D MPV 8.2 Neut % (Auto) 79.5 H Lymph % (Auto) 3.8 L [place] % (Auto) 16.2 H Eos % (Auto) 0.1 Baso % (Auto) 0.4 Neut # 5.8 Lymph # 0.3 L [place] # 1.2 H Eos # 0.0 Baso # 0.0 Neutrophils % (Manual) 51 Band Neutrophils % 2 Lymphocytes % (Manual) 20 Reactive Lymphs % 3 H Monocytes % (Manual) 21 H Eosinophils % (Manual) 2 Basophils % (Manual) 1 Nucleated RBC % Platelet Estimate Markedly decreased L Hypochromasia (manual) Anisocytosis (manual) ESR 73 H PT 16.2 H INR 1.4 APTT 38 H D pO2 VBG pH VBG pCO2 VBG HCO3 VBG Total CO2 VBG O2 Sat (Calc) VBG Base Excess VBG Potassium Glucose Lactate Crit Value Called To Crit Value Called By Crit Value Read Back Blood Gas Notified Time Sodium Potassium Chloride Carbon Dioxide Anion Gap BUN Creatinine Est GFR ( Amer) Est GFR (Non-Af Amer) POC Glucose (mg/dL) Random Glucose Calcium Phosphorus Magnesium Total Bilirubin Direct Bilirubin AST ALT Alkaline Phosphatase Lactate Dehydrogenase Troponin I C-React Prot High Sens > 15.00 H NT-Pro-B Natriuret Pep Total Protein Albumin Globulin Albumin/Globulin Ratio Vitamin B12 Free T4 TSH 3rd Generation Cortisol AM Sample Venous Blood Potassium Urine Color Urine Clarity Urine pH Ur Specific [place] Urine Protein Urine Glucose (UA) Urine Ketones Urine Blood Urine Nitrate Urine Bilirubin Urine Urobilinogen Ur Leukocyte Esterase Urine WBC (Auto) Urine RBC (Auto) Ur Squamous Epith Cells Amorphous Sediment Blood Type 03/20/17 03/20/17 03/20/17 04:56 07:37 08:05 WBC 6.8 RBC 2.05 L Hgb 5.8 L* Hct 17.7 L MCV 86.2 MCH 28.3 MCHC 32.9 L RDW 21.6 H Plt Count 47 L MPV 8.1 Neut % (Auto) 76.3 H Lymph % (Auto) 5.5 L [place] % (Auto) 17.7 H Eos % (Auto) 0.2 Baso % (Auto) 0.3 Neut # 5.2 Lymph # 0.4 L [place] # 1.2 H Eos # 0.0 Baso # 0.0 Neutrophils % (Manual) Band Neutrophils % Lymphocytes % (Manual) Reactive Lymphs % Monocytes % (Manual) Eosinophils % (Manual) Basophils % (Manual) Nucleated RBC % Platelet Estimate Hypochromasia (manual) Anisocytosis (manual) ESR PT INR APTT pO2 VBG pH VBG pCO2 VBG HCO3 VBG Total CO2 VBG O2 Sat (Calc) VBG Base Excess VBG Potassium Glucose Lactate Crit Value Called To Crit Value Called By Crit Value Read Back Blood Gas Notified Time Sodium 128 L Potassium 2.3 L* D Chloride 95 L Carbon Dioxide 28 Anion Gap 7 L BUN 54 H Creatinine 0.9 Est GFR ( Amer) > 60 Est GFR (Non-Af Amer) > 60 POC Glucose (mg/dL) 99 Random Glucose 84 Calcium 6.8 L Phosphorus Magnesium 1.5 L Total Bilirubin 0.7 Direct Bilirubin AST 53 H D ALT 40 Alkaline Phosphatase 94 Lactate Dehydrogenase Troponin I C-React Prot High Sens NT-Pro-B Natriuret Pep Total Protein 4.0 L Albumin 1.8 L D Globulin 2.2 Albumin/Globulin Ratio 0.8 L Vitamin B12 > 1000 H Free T4 TSH 3rd Generation Cortisol AM Sample Venous Blood Potassium Urine Color Urine Clarity Urine pH Ur Specific [place] Urine Protein Urine Glucose (UA) Urine Ketones Urine Blood Urine Nitrate Urine Bilirubin Urine Urobilinogen Ur Leukocyte Esterase Urine WBC (Auto) Urine RBC (Auto) Ur Squamous Epith Cells Amorphous Sediment Blood Type 03/20/17 03/20/17 03/20/17 08:05 09:50 09:50 WBC 7.3 RBC 2.15 L Hgb 6.0 L* Hct 18.7 L MCV 87.0 MCH 27.7 MCHC 31.8 L RDW 21.2 H Plt Count 46 L MPV 7.7 Neut % (Auto) 75.4 H Lymph % (Auto) 7.4 L [place] % (Auto) 16.4 H Eos % (Auto) 0.3 Baso % (Auto) 0.5 Neut # 5.5 Lymph # 0.5 L [place] # 1.2 H Eos # 0.0 Baso # 0.0 Neutrophils % (Manual) 74 Band Neutrophils % 8 H Lymphocytes % (Manual) 6 L Reactive Lymphs % 1 H Monocytes % (Manual) 11 H Eosinophils % (Manual) Basophils % (Manual) Nucleated RBC % Platelet Estimate Decreased L Hypochromasia (manual) Slight Anisocytosis (manual) Moderate ESR PT INR APTT pO2 VBG pH VBG pCO2 VBG HCO3 VBG Total CO2 VBG O2 Sat (Calc) VBG Base Excess VBG Potassium Glucose Lactate Crit Value Called To Crit Value Called By Crit Value Read Back Blood Gas Notified Time Sodium 129 L 129 L Potassium 2.0 L* 2.0 L* Chloride 96 L 94 L Carbon Dioxide 31 H 33 H Anion Gap 4 L 4 L BUN 50 H 48 H Creatinine 0.9 1.0 Est GFR ( Amer) > 60 > 60 Est GFR (Non-Af Amer) > 60 56 POC Glucose (mg/dL) Random Glucose 82 104 Calcium 6.8 L 6.9 L Phosphorus 2.6 Magnesium 1.5 L Total Bilirubin 0.7 Direct Bilirubin AST 49 H ALT 43 Alkaline Phosphatase 95 Lactate Dehydrogenase 1449 H Troponin I C-React Prot High Sens NT-Pro-B Natriuret Pep Total Protein 4.0 L Albumin 1.8 L Globulin 2.2 Albumin/Globulin Ratio 0.8 L Vitamin B12 Free T4 TSH 3rd Generation Cortisol AM Sample Venous Blood Potassium Urine Color Urine Clarity Urine pH Ur Specific [place] Urine Protein Urine Glucose (UA) Urine Ketones Urine Blood Urine Nitrate Urine Bilirubin Urine Urobilinogen Ur Leukocyte Esterase Urine WBC (Auto) Urine RBC (Auto) Ur Squamous Epith Cells Amorphous Sediment Blood Type 03/20/17 03/20/17 11:08 11:08 WBC RBC Hgb Hct MCV MCH MCHC RDW Plt Count MPV Neut % (Auto) Lymph % (Auto) [place] % (Auto) Eos % (Auto) Baso % (Auto) Neut # Lymph # [place] # Eos # Baso # Neutrophils % (Manual) Band Neutrophils % Lymphocytes % (Manual) Reactive Lymphs % Monocytes % (Manual) Eosinophils % (Manual) Basophils % (Manual) Nucleated RBC % Platelet Estimate Hypochromasia (manual) Anisocytosis (manual) ESR PT INR APTT pO2 VBG pH VBG pCO2 VBG HCO3 VBG Total CO2 VBG O2 Sat (Calc) VBG Base Excess VBG Potassium Glucose Lactate Crit Value Called To Crit Value Called By Crit Value Read Back Blood Gas Notified Time Sodium Potassium Chloride Carbon Dioxide Anion Gap BUN Creatinine Est GFR ( Amer) Est GFR (Non-Af Amer) POC Glucose (mg/dL) Random Glucose Calcium Phosphorus Magnesium Total Bilirubin Direct Bilirubin 0.4 AST ALT Alkaline Phosphatase Lactate Dehydrogenase Troponin I C-React Prot High Sens NT-Pro-B Natriuret Pep Total Protein Albumin Globulin Albumin/Globulin Ratio Vitamin B12 Free T4 TSH 3rd Generation Cortisol AM Sample Venous Blood Potassium Urine Color Urine Clarity Urine pH Ur Specific [place] Urine Protein Urine Glucose (UA) Urine Ketones Urine Blood Urine Nitrate Urine Bilirubin Urine Urobilinogen Ur Leukocyte Esterase Urine WBC (Auto) Urine RBC (Auto) Ur Squamous Epith Cells Amorphous Sediment Blood Type O POSITIVE Assessment & Plan (1) Anemia Status: Acute (2) CHF (congestive heart failure) Status: Acute (3) Coagulopathy Status: Acute (4) Fever Status: Acute (5) Hypoglycemia Status: Acute (6) Leg pain, bilateral Status: Acute (7) Sepsis Status: Acute (8) Thrombocytopenia Status: Acute
[2017-03-20 13:23] LABS: ANA PATTERN SPECKLED
[2017-03-20] MEDS: Vancomycin 1 gm/NS 200 ml 1 GM/200 ML BAG IVPB SCH (15:00)
[2017-03-20 15:50] LABS: FOLATE > 20.0 ng/mL
--- NOTE | 2017-03-20 19:23 | CARD ---
APPROVED REPORT EKG Measurement Heart [id number] <Conclusion> Sinus tachycardia with fusion complexes Biatrial enlargement Nonspecific ST abnormality baseline artifact, needs to be repeated Abnormal ECG
[2017-03-20 20:07] LABS: BASO % 0.4 % (0.0-2.0); LYMPH # 0.3 K/uL (1.0-4.3); LYMPH % 3.5 % (20.0-40.0); MEAN CELL VOLUME 85.9 fL (81.0-99.0); MEAN CORPUSCULAR HEMOGLOBIN 28.4 pg (27.0-31.0); MEAN CORPUSCULAR HGB CONC 33.1 g/dL (33.0-37.0); MEAN PLATELET VOLUME 8.4 fL (7.2-11.7); MONO # 1.1 K/uL (0.0-0.8); MONO % 14.3 % (0.0-10.0); NEUT # 6.1 K/uL (1.8-7.0); NEUT % 81.8 % (50.0-75.0); NRBC % 0.1 % (0.0-2.0); PLATELET COUNT 47 K/uL (130-400); RBC 2.89 Mil/uL (3.80-5.20); RED CELL DISTRIBUTION WIDTH 18.2 % (11.5-14.5); WHITE BLOOD COUNT 7.4 K/uL (4.8-10.8)
[2017-03-20 20:08] LABS: HEMOGLOBIN 8.2 g/dL (11.0-16.0)
[2017-03-20 20:29] LABS: ALB/GLOB RATIO 0.6 (1.0-2.1); ALT/SGPT 53 U/L (9-52); AST/SGOT 50 U/L (14-36); BLOOD UREA NITROGEN 38 mg/dL (7-17); CALCIUM 7.1 mg/dl (8.6-10.4); GFR AFRICAN-AMERICAN > 60; GFR NON-AFRICAN AMERICAN > 60; MAGNESIUM 1.8 mg/dL (1.6-2.3)
[2017-03-20 20:42] LABS: LYMPHOCYTE 5 % (20-40); MONOCYTE 7 % (0-10); NEUTROPHIL 88 % (50-75); PLATELET ESTIMATE MARKEDLY DECREASED (NORMAL); TOTAL CELLS COUNTED 100
[2017-03-20 20:44] LABS: ANISOCYTOSIS SLIGHT; POIKILOCYTOSIS SLIGHT
[2017-03-20 20:45] LABS: OVALOCYTES SLIGHT; TEARDROP CELLS SLIGHT
--- NOTE | 2017-03-20 23:32 | CARD ---
APPROVED REPORT EXAM: Two-dimensional and M-mode echocardiogram with Doppler and color Doppler. Other Information Quality : [employer] : INDICATION LEG SWELLING 2D DIMENSIONS IVSd0.8 (0.7-1.1cm)LVDd4.4 (3.9-5.9cm) PWd0.8 (0.7-1.1cm)LVDs2.1 (2.5-4.0cm) FS (%) 53.0 %LVEF (%)84.2 (>50%) M-Mode DIMENSIONS RVDd2.85 (2.1-3.2cm)Left Atrium (MM)4.00 (2.5-4.0cm) IVSd0.83 (0.7-1.1cm)Aortic Root2.63 (2.2-3.7cm) LVDd4.51 (4.0-5.6cm)Aortic Cusp Exc.1.70 (1.5-2.0cm) PWd0.87 (0.7-1.1cm)FS (%) 47 % LVDs2.39 (2.0-3.8cm)LVEF (%)78 (>50%) Mitral Valve MV E Tzxcowaq09.8cm/sMV A Eshdajfj432.6cm/sE/A ratio0.7 TDI E/Lateral E'0.0E/Medial E'0.0 Tricuspid Valve TR Peak Bqrvokxp430cg/sTR Peak Gr.[id number] LEFT VENTRICLE The left ventricle is normal size. There is normal left ventricular wall thickness. Left ventricle systolic function is normal. The Ejection Fraction is 75% There is normal LV segmental wall motion. Transmitral Doppler flow pattern is Grade I-abnormal relaxation pattern. There is no ventricular septal defect visualized. RIGHT VENTRICLE The right ventricle is normal size. The right ventricular systolic function is normal. ATRIA The left atrium is mildly dilated. The right atrium size is normal. AORTIC VALVE The aortic valve is mildly to moderately sclerotic. The aortic valve is tri-cuspid. No aortic regurgitation is present. There is no aortic valvular stenosis. MITRAL VALVE The mitral valve is normal in structure. There is no evidence of mitral valve prolapse. There is no mitral valve regurgitation noted. TRICUSPID VALVE The tricuspid valve is normal in structure. There is trace tricuspid regurgitation. Right ventricular systolic pressure is estimated at 30-40 mmHg. There is mild pulmonary hypertension. PULMONIC VALVE The pulmonary valve is normal in structure. There is trace pulmonic valvular regurgitation. GREAT VESSELS The aortic root is normal in size. The IVC is normal in size and collapses >50% with inspiration. PERICARDIAL EFFUSION There is no pericardial effusion. <Conclusion> Left ventricle systolic function is normal. The Ejection Fraction is 75% Transmitral Doppler flow pattern is Grade I-abnormal relaxation pattern. There is mild pulmonary hypertension.
--- NOTE | 2017-03-21 00:47 | CP.PCM.CON ---
History of Present Illness - History of Present Illness History of Present Illness: [age] year old female with SLE on immunosuppression, admitted with sepsis, with anemia of thrombocytopenia. The patient is currently lethargic and I am unable to obtain a history from the patient. Review of her blood work shows anemia and thrombocytopenia. She is currently receiving antibiotics. Past medical, surgical, family, social history cannot be obtained. Allergies: Per documentation Penicillins, Sulfa Review of systems cannot be obtained. Past Patient History - Past Medical History & Family History Past Medical History?: Yes - Past Social History Smoking Status: Former Smoker Alcohol: None Drugs: Denies Home Situation {Lives}: With Family Domestic Violence: Negative - CARDIAC Hx Cardiac Disorders: Yes Hx Congestive Heart Failure: Yes Hx Hypertension: Yes - PULMONARY Hx Respiratory Disorders: No - NEUROLOGICAL Hx Neurological Disorder: No - HEENT Hx HEENT Problems: No - RENAL Hx Chronic Kidney Disease: No - ENDOCRINE/METABOLIC Hx Endocrine Disorders: Yes Hx Systemic Lupus Erythematosus: Yes - HEMATOLOGICAL/ONCOLOGICAL Hx Blood Disorders: No - INTEGUMENTARY Hx Dermatological Problems: Yes Other/Comment: multiple open wound bilateral buttocks and right thigh - MUSCULOSKELETAL/RHEUMATOLOGICAL Hx Musculoskeletal Disorders: Yes Hx Falls: Yes Hx Rheumatoid Arthritis: Yes - GASTROINTESTINAL Hx Gastrointestinal Disorders: No - GENITOURINARY/GYNECOLOGICAL Hx Genitourinary Disorders: No - PSYCHIATRIC Hx Psychophysiologic Disorder: No Hx Substance Use: No - SURGICAL HISTORY Hx Surgeries: No - ANESTHESIA Hx Anesthesia: No Meds Allergies/Adverse Reactions: Allergies Allergy/AdvReac Type Severity Reaction Status Date / Time Penicillins Allergy Verified 03/19/17 23:45 Sulfa (Sulfonamide Allergy Verified 03/19/17 23:45 Antibiotics) - Medications Medications: Current Medications Aztreonam 2 gm/ Sodium (Chloride) 100 mls @ 200 mls/hr IVPB Q8H [facility] Last Admin: 03/20/17 19:32 Dose: 200 mls/hr Vancomycin/Sodium Chloride (Vancomycin 1 Gm/Ns 200 Ml) 1 gm in 200 mls @ 133 mls/hr IVPB Q12H [facility] Stop: 03/25/17 15:31 Last Admin: 03/20/17 15:00 Dose: 133 mls/hr Sodium Chloride (Sodium Chloride 0.9%) 1,000 mls @ 100 mls/hr IV .Q10H [facility] Last Admin: 03/20/17 20:13 Dose: Not Given Potassium Chloride (Potassium Chloride 20 Meq/100 Ml) 20 meq in 100 mls @ 50 mls/hr IVPB Q2H [facility] Stop: 03/21/17 00:45 Last Admin: 03/20/17 23:47 Dose: 50 mls/hr Methylprednisolone (Solu-Medrol) 40 mg IVP Q12 [facility] Last Admin: 03/20/17 21:58 Dose: 40 mg Ondansetron HCl (Zofran Inj) 4 mg IVP Q6H PRN PRN Reason: Nausea/Vomiting Last Admin: 03/20/17 15:01 Dose: 4 mg Pantoprazole Sodium (Protonix Ec Tab) 40 mg PO DAILY [facility] Last Admin: 03/20/17 10:20 Dose: 40 mg Physical Exam - Head Exam Head Exam: ATRAUMATIC - Eye Exam Eye Exam: Normal appearance - ENT Exam ENT Exam: Mucous Membranes Dry - Respiratory Exam Respiratory Exam: NORMAL BREATHING PATTERN - Cardiovascular Exam Cardiovascular Exam: +S1, +S2 - GI/Abdominal Exam GI & Abdominal Exam: Normal Bowel Sounds - Neurological Exam Neurological exam: Altered - Psychiatric Exam Psychiatric exam: Flat Affect - Skin Skin Exam: Warm Results - Vital Signs Recent Vital Signs: Last Vital Signs Temp 98.2 F 03/20/17 22:00 Pulse 78 03/20/17 22:01 Resp 16 03/20/17 22:01 BP 98/63 L 03/20/17 22:01 Pulse Ox 82 L 03/20/17 22:01 - Labs Result Diagrams: 03/20/17 20:03 03/20/17 20:03 Labs: Laboratory Results - last 24 hr 03/20/17 03/20/17 03/20/17 00:19 00:33 00:33 WBC 8.8 RBC 3.82 Hgb 10.7 L Hct 33.5 L MCV 87.6 MCH 28.0 MCHC 32.0 L RDW 21.5 H Plt Count 88 L MPV 8.5 Neut % (Auto) 82.1 H Lymph % (Auto) 6.5 L Burke % (Auto) 11.0 H Eos % (Auto) 0.1 Baso % (Auto) 0.3 Neut # 7.2 H Lymph # 0.6 L Burke # 1.0 H Eos # 0.0 Baso # 0.0 Neutrophils % (Manual) 82 H Band Neutrophils % 4 H Lymphocytes % (Manual) 7 L Reactive Lymphs % Monocytes % (Manual) 7 Eosinophils % (Manual) Basophils % (Manual) Nucleated RBC % 1 H Differential Comment Platelet Estimate Decreased L Hypochromasia (manual) Poikilocytosis (manual Anisocytosis (manual) Tear Drop Cells Ovalocytes ESR Retic Count PT INR APTT pO2 VBG pH VBG pCO2 VBG HCO3 VBG Total CO2 VBG O2 Sat (Calc) VBG Base Excess VBG Potassium Glucose Lactate Crit Value Called To Crit Value Called By Crit Value Read Back Blood Gas Notified Time Sodium 135 Potassium 3.5 L Chloride 91 L Carbon Dioxide 32 H Anion Gap 15 BUN 69 H Creatinine 1.1 Est GFR ( Amer) > 60 Est GFR (Non-Af Amer) 50 POC Glucose (mg/dL) Random Glucose 90 Calcium 8.5 L Phosphorus 3.2 Magnesium 2.0 Ferritin Total Bilirubin 1.6 H Direct Bilirubin AST 96 H ALT 59 H Alkaline Phosphatase 182 H Lactate Dehydrogenase Troponin I 0.0890 C-React Prot High Sens NT-Pro-B Natriuret Pep 3190 H Total Protein 7.8 Albumin 3.2 L Globulin 4.6 H Albumin/Globulin Ratio 0.7 L Vitamin B12 Folate Free T4 2.22 H TSH 3rd Generation 1.65 Cortisol AM Sample Venous Blood Potassium Urine Color Urine Clarity Urine pH Ur Specific [place] Urine Protein Urine Glucose (UA) Urine Ketones Urine Blood Urine Nitrate Urine Bilirubin Urine Urobilinogen Ur Leukocyte Esterase Urine WBC (Auto) Urine RBC (Auto) Ur Squamous Epith Cells Amorphous Sediment DRE 6 Profile DRE Titer DRE Pattern Blood Type Antibody Screen BENNY, Poly Interpret 03/20/17 03/20/17 03/20/17 00:33 00:45 01:22 WBC RBC Hgb Hct MCV MCH MCHC RDW Plt Count MPV Neut % (Auto) Lymph % (Auto) [place] % (Auto) Eos % (Auto) Baso % (Auto) Neut # Lymph # [place] # Eos # Baso # Neutrophils % (Manual) Band Neutrophils % Lymphocytes % (Manual) Reactive Lymphs % Monocytes % (Manual) Eosinophils % (Manual) Basophils % (Manual) Nucleated RBC % Differential Comment Platelet Estimate Hypochromasia (manual) Poikilocytosis (manual Anisocytosis (manual) Tear Drop Cells Ovalocytes ESR Retic Count PT 14.8 H INR 1.3 APTT 33 pO2 VBG pH VBG pCO2 VBG HCO3 VBG Total CO2 VBG O2 Sat (Calc) VBG Base Excess VBG Potassium Glucose Lactate Crit Value Called To Crit Value Called By Crit Value Read Back Blood Gas Notified Time Sodium Potassium Chloride Carbon Dioxide Anion Gap BUN Creatinine Est GFR ( Amer) Est GFR (Non-Af Amer) POC Glucose (mg/dL) 84 Random Glucose Calcium Phosphorus Magnesium Ferritin Total Bilirubin Direct Bilirubin AST ALT Alkaline Phosphatase Lactate Dehydrogenase Troponin I C-React Prot High Sens NT-Pro-B Natriuret Pep Total Protein Albumin Globulin Albumin/Globulin Ratio Vitamin B12 Folate Free T4 TSH 3rd Generation Cortisol AM Sample Venous Blood Potassium Urine Color Yellow Urine Clarity Hazy Urine pH 5.0 Ur Specific [place] 1.013 Urine Protein Negative Urine Glucose (UA) Normal Urine Ketones Negative Urine Blood 1+ H Urine Nitrate Negative Urine Bilirubin Negative Urine Urobilinogen Normal Ur Leukocyte Esterase 3+ H Urine WBC (Auto) 9 H Urine RBC (Auto) 21 H Ur Squamous Epith Cells 4 Amorphous Sediment Occ H DRE 6 Profile DRE Titer DRE Pattern Blood Type Antibody Screen BENNY, Poly Interpret 03/20/17 03/20/17 03/20/17 02:16 04:08 04:08 WBC RBC Hgb Hct MCV MCH MCHC RDW Plt Count MPV Neut % (Auto) Lymph % (Auto) [place] % (Auto) Eos % (Auto) Baso % (Auto) Neut # Lymph # [place] # Eos # Baso # Neutrophils % (Manual) Band Neutrophils % Lymphocytes % (Manual) Reactive Lymphs % Monocytes % (Manual) Eosinophils % (Manual) Basophils % (Manual) Nucleated RBC % Differential Comment Platelet Estimate Hypochromasia (manual) Poikilocytosis (manual Anisocytosis (manual) Tear Drop Cells Ovalocytes ESR Retic Count PT INR APTT pO2 23 L VBG pH 7.44 H VBG pCO2 41 VBG HCO3 26.0 VBG Total CO2 29.1 H VBG O2 Sat (Calc) 35.7 L VBG Base Excess 3.3 H VBG Potassium 2.5 L* Glucose 96 Lactate 5.7 H* Crit Value Called To [place] de rn Crit Value Called By Paz lead cook Crit Value Read Back Y Blood Gas Notified Time 411 Sodium 132.0 Potassium Chloride 99.0 Carbon Dioxide Anion Gap BUN Creatinine Est GFR ( Amer) Est GFR (Non-Af Amer) POC Glucose (mg/dL) 132 H Random Glucose Calcium Phosphorus Magnesium Ferritin Total Bilirubin Direct Bilirubin AST ALT Alkaline Phosphatase Lactate Dehydrogenase Troponin I C-React Prot High Sens NT-Pro-B Natriuret Pep Total Protein Albumin Globulin Albumin/Globulin Ratio Vitamin B12 Folate Free T4 TSH 3rd Generation Cortisol AM Sample 27.7 H Venous Blood Potassium 2.5 L* Urine Color Urine Clarity Urine pH Ur Specific [place] Urine Protein Urine Glucose (UA) Urine Ketones Urine Blood Urine Nitrate Urine Bilirubin Urine Urobilinogen Ur Leukocyte Esterase Urine WBC (Auto) Urine RBC (Auto) Ur Squamous Epith Cells Amorphous Sediment DRE 6 Profile DRE Titer DRE Pattern Blood Type Antibody Screen BENNY, Poly Interpret 03/20/17 03/20/17 03/20/17 04:08 04:08 04:08 WBC RBC Hgb Hct MCV MCH MCHC RDW Plt Count MPV Neut % (Auto) Lymph % (Auto) [place] % (Auto) Eos % (Auto) Baso % (Auto) Neut # Lymph # [place] # Eos # Baso # Neutrophils % (Manual) Band Neutrophils % Lymphocytes % (Manual) Reactive Lymphs % Monocytes % (Manual) Eosinophils % (Manual) Basophils % (Manual) Nucleated RBC % Differential Comment Platelet Estimate Hypochromasia (manual) Poikilocytosis (manual Anisocytosis (manual) Tear Drop Cells Ovalocytes ESR Retic Count PT 16.2 H INR 1.4 APTT 38 H D pO2 VBG pH VBG pCO2 VBG HCO3 VBG Total CO2 VBG O2 Sat (Calc) VBG Base Excess VBG Potassium Glucose Lactate Crit Value Called To Crit Value Called By Crit Value Read Back Blood Gas Notified Time Sodium Potassium Chloride Carbon Dioxide Anion Gap BUN Creatinine Est GFR ( Amer) Est GFR (Non-Af Amer) POC Glucose (mg/dL) Random Glucose Calcium Phosphorus Magnesium Ferritin Total Bilirubin Direct Bilirubin AST ALT Alkaline Phosphatase Lactate Dehydrogenase Troponin I C-React Prot High Sens > 15.00 H NT-Pro-B Natriuret Pep Total Protein Albumin Globulin Albumin/Globulin Ratio Vitamin B12 Folate Free T4 TSH 3rd Generation Cortisol AM Sample Venous Blood Potassium Urine Color Urine Clarity Urine pH Ur Specific [place] Urine Protein Urine Glucose (UA) Urine Ketones Urine Blood Urine Nitrate Urine Bilirubin Urine Urobilinogen Ur Leukocyte Esterase Urine WBC (Auto) Urine RBC (Auto) Ur Squamous Epith Cells Amorphous Sediment DRE 6 Profile Positive H DRE Titer 1:320 H DRE Pattern Speckled H Blood Type Antibody Screen BENNY, Poly Interpret 03/20/17 03/20/17 03/20/17 04:56 04:56 07:37 WBC 7.3 RBC 2.15 L Hgb 6.0 L* D Hct 18.8 L MCV 87.5 MCH 27.8 MCHC 31.8 L RDW 21.1 H Plt Count 49 L D MPV 8.2 Neut % (Auto) 79.5 H Lymph % (Auto) 3.8 L [place] % (Auto) 16.2 H Eos % (Auto) 0.1 Baso % (Auto) 0.4 Neut # 5.8 Lymph # 0.3 L [place] # 1.2 H Eos # 0.0 Baso # 0.0 Neutrophils % (Manual) 51 Band Neutrophils % 2 Lymphocytes % (Manual) 20 Reactive Lymphs % 3 H Monocytes % (Manual) 21 H Eosinophils % (Manual) 2 Basophils % (Manual) 1 Nucleated RBC % Differential Comment Platelet Estimate Markedly decreased L Hypochromasia (manual) Poikilocytosis (manual Anisocytosis (manual) Tear Drop Cells Ovalocytes ESR 73 H Retic Count PT INR APTT pO2 VBG pH VBG pCO2 VBG HCO3 VBG Total CO2 VBG O2 Sat (Calc) VBG Base Excess VBG Potassium Glucose Lactate Crit Value Called To Crit Value Called By Crit Value Read Back Blood Gas Notified Time Sodium 128 L Potassium 2.3 L* D Chloride 95 L Carbon Dioxide 28 Anion Gap 7 L BUN 54 H Creatinine 0.9 Est GFR ( Amer) > 60 Est GFR (Non-Af Amer) > 60 POC Glucose (mg/dL) 99 Random Glucose 84 Calcium 6.8 L Phosphorus Magnesium 1.5 L Ferritin Total Bilirubin 0.7 Direct Bilirubin AST 53 H D ALT 40 Alkaline Phosphatase 94 Lactate Dehydrogenase Troponin I C-React Prot High Sens NT-Pro-B Natriuret Pep Total Protein 4.0 L Albumin 1.8 L D Globulin 2.2 Albumin/Globulin Ratio 0.8 L Vitamin B12 > 1000 H Folate Free T4 TSH 3rd Generation Cortisol AM Sample Venous Blood Potassium Urine Color Urine Clarity Urine pH Ur Specific [place] Urine Protein Urine Glucose (UA) Urine Ketones Urine Blood Urine Nitrate Urine Bilirubin Urine Urobilinogen Ur Leukocyte Esterase Urine WBC (Auto) Urine RBC (Auto) Ur Squamous Epith Cells Amorphous Sediment DRE 6 Profile DRE Titer DRE Pattern Blood Type Antibody Screen BENNY, Poly Interpret 03/20/17 03/20/1703/20/17 08:05 08:05 09:50 WBC 6.8 7.3 RBC 2.05 L 2.15 L Hgb 5.8 L* 6.0 L* Hct 17.7 L 18.7 L MCV 86.2 87.0 MCH 28.3 27.7 MCHC 32.9 L 31.8 L RDW 21.6 H 21.2 H Plt Count 47 L 46 L MPV 8.1 7.7 Neut % (Auto) 76.3 H 75.4 H Lymph % (Auto) 5.5 L 7.4 L [place] % (Auto) 17.7 H 16.4 H Eos % (Auto) 0.2 0.3 Baso % (Auto) 0.3 0.5 Neut # 5.2 5.5 Lymph # 0.4 L 0.5 L [place] # 1.2 H 1.2 H Eos # 0.0 0.0 Baso # 0.0 0.0 Neutrophils % (Manual) 74 Band Neutrophils % 8 H Lymphocytes % (Manual) 6 L Reactive Lymphs % 1 H Monocytes % (Manual) 11 H Eosinophils % (Manual) Basophils % (Manual) Nucleated RBC % Differential Comment Platelet Estimate Decreased L Hypochromasia (manual) Slight Poikilocytosis (manual Anisocytosis (manual) Moderate Tear Drop Cells Ovalocytes ESR Retic Count 5.6 H PT INR APTT pO2 VBG pH VBG pCO2 VBG HCO3 VBG Total CO2 VBG O2 Sat (Calc) VBG Base Excess VBG Potassium Glucose Lactate Crit Value Called To Crit Value Called By Crit Value Read Back Blood Gas Notified Time Sodium 129 L Potassium 2.0 L* Chloride 96 L Carbon Dioxide 31 H Anion Gap 4 L BUN 50 H Creatinine 0.9 Est GFR ( Amer) > 60 Est GFR (Non-Af Amer) > 60 POC Glucose (mg/dL) Random Glucose 82 Calcium 6.8 L Phosphorus 2.6 Magnesium 1.5 L Ferritin Total Bilirubin 0.7 Direct Bilirubin AST 49 H ALT 43 Alkaline Phosphatase 95 Lactate Dehydrogenase Troponin I C-React Prot High Sens NT-Pro-B Natriuret Pep Total Protein 4.0 L Albumin 1.8 L Globulin 2.2 Albumin/Globulin Ratio 0.8 L Vitamin B12 Folate Free T4 TSH 3rd Generation Cortisol AM Sample Venous Blood Potassium Urine Color Urine Clarity Urine pH Ur Specific [place] Urine Protein Urine Glucose (UA) Urine Ketones Urine Blood Urine Nitrate Urine Bilirubin Urine Urobilinogen Ur Leukocyte Esterase Urine WBC (Auto) Urine RBC (Auto) Ur Squamous Epith Cells Amorphous Sediment DRE 6 Profile DRE Titer DRE Pattern Blood Type Antibody Screen BENNY, Poly Interpret 03/20/17 03/20/17 03/20/17 09:50 11:08 11:08 WBC RBC Hgb Hct MCV MCH MCHC RDW Plt Count MPV Neut % (Auto) Lymph % (Auto) [place] % (Auto) Eos % (Auto) Baso % (Auto) Neut # Lymph # [place] # Eos # Baso # Neutrophils % (Manual) Band Neutrophils % Lymphocytes % (Manual) Reactive Lymphs % Monocytes % (Manual) Eosinophils % (Manual) Basophils % (Manual) Nucleated RBC % Differential Comment Platelet Estimate Hypochromasia (manual) Poikilocytosis (manual Anisocytosis (manual) Tear Drop Cells Ovalocytes ESR Retic Count PT INR APTT pO2 VBG pH VBG pCO2 VBG HCO3 VBG Total CO2 VBG O2 Sat (Calc) VBG Base Excess VBG Potassium Glucose Lactate Crit Value Called To Crit Value Called By Crit Value Read Back Blood Gas Notified Time Sodium 129 L Potassium 2.0 L* Chloride 94 L Carbon Dioxide 33 H Anion Gap 4 L BUN 48 H Creatinine 1.0 Est GFR ( Amer) > 60 Est GFR (Non-Af Amer) 56 POC Glucose (mg/dL) Random Glucose 104 Calcium 6.9 L Phosphorus Magnesium Ferritin Total Bilirubin Direct Bilirubin 0.4 AST ALT Alkaline Phosphatase Lactate Dehydrogenase 1449 H Troponin I C-React Prot High Sens NT-Pro-B Natriuret Pep Total Protein Albumin Globulin Albumin/Globulin Ratio Vitamin B12 Folate Free T4 TSH 3rd Generation Cortisol AM Sample Venous Blood Potassium Urine Color Urine Clarity Urine pH Ur Specific [place] Urine Protein Urine Glucose (UA) Urine Ketones Urine Blood Urine Nitrate Urine Bilirubin Urine Urobilinogen Ur Leukocyte Esterase Urine WBC (Auto) Urine RBC (Auto) Ur Squamous Epith Cells Amorphous Sediment DRE 6 Profile DRE Titer DRE Pattern Blood Type O POSITIVE Antibody Screen Negative BENNY, Poly Interpret 03/20/17 03/20/17 03/20/17 11:56 14:27 20:03 WBC 7.4 RBC 2.89 L Hgb 8.2 L D Hct 24.8 L MCV 85.9 MCH 28.4 MCHC 33.1 RDW 18.2 H Plt Count 47 L MPV 8.4 Neut % (Auto) 81.8 H Lymph % (Auto) 3.5 L [place] % (Auto) 14.3 H Eos % (Auto) 0.0 Baso % (Auto) 0.4 Neut # 6.1 Lymph # 0.3 L [place] # 1.1 H Eos # 0.0 Baso # 0.0 Neutrophils % (Manual) 88 H Band Neutrophils % Lymphocytes % (Manual) 5 L Reactive Lymphs % Monocytes % (Manual) 7 Eosinophils % (Manual) Basophils % (Manual) Nucleated RBC % Differential Comment Platelet Estimate Markedly decreased L Hypochromasia (manual) Poikilocytosis (manual Slight Anisocytosis (manual) Slight Tear Drop Cells Slight Ovalocytes Slight ESR Retic Count PT INR APTT pO2 VBG pH VBG pCO2 VBG HCO3 VBG Total CO2 VBG O2 Sat (Calc) VBG Base Excess VBG Potassium Glucose Lactate Crit Value Called To Crit Value Called By Crit Value Read Back Blood Gas Notified Time Sodium Potassium Chloride Carbon Dioxide Anion Gap BUN Creatinine Est GFR ( Amer) Est GFR (Non-Af Amer) POC Glucose (mg/dL) 112 H Random Glucose Calcium Phosphorus Magnesium Ferritin 2110.0 Total Bilirubin Direct Bilirubin AST ALT Alkaline Phosphatase Lactate Dehydrogenase Troponin I C-React Prot High Sens NT-Pro-B Natriuret Pep Total Protein Albumin Globulin Albumin/Globulin Ratio Vitamin B12 > 1000 H Folate > 20.0 Free T4 TSH 3rd Generation Cortisol AM Sample Venous Blood Potassium Urine Color Urine Clarity Urine pH Ur Specific [place] Urine Protein Urine Glucose (UA) Urine Ketones Urine Blood Urine Nitrate Urine Bilirubin Urine Urobilinogen Ur Leukocyte Esterase Urine WBC (Auto) Urine RBC (Auto) Ur Squamous Epith Cells Amorphous Sediment DRE 6 Profile DRE Titer DRE Pattern Blood Type Antibody Screen BENNY, Poly Interpret 03/20/17 03/20/17 20:03 23:16 WBC RBC Hgb Hct MCV MCH MCHC RDW Plt Count MPV Neut % (Auto) Lymph % (Auto) [place] % (Auto) Eos % (Auto) Baso % (Auto) Neut # Lymph # [place] # Eos # Baso # Neutrophils % (Manual) Band Neutrophils % Lymphocytes % (Manual) Reactive Lymphs % Monocytes % (Manual) Eosinophils % (Manual) Basophils % (Manual) Nucleated RBC % Differential Comment Platelet Estimate Hypochromasia (manual) Poikilocytosis (manual Anisocytosis (manual) Tear Drop Cells Ovalocytes ESR Retic Count PT INR APTT pO2 VBG pH VBG pCO2 VBG HCO3 VBG Total CO2 VBG O2 Sat (Calc) VBG Base Excess VBG Potassium Glucose Lactate Crit Value Called To Crit Value Called By Crit Value Read Back Blood Gas Notified Time Sodium 134 Potassium 3.0 L Chloride 99 Carbon Dioxide 35 H Anion Gap 3 L BUN 38 H Creatinine 0.8 Est GFR ( Amer) > 60 Est GFR (Non-Af Amer) > 60 POC Glucose (mg/dL) Random Glucose 109 H Calcium 7.1 L Phosphorus 2.8 Magnesium 1.8 Ferritin Total Bilirubin 0.7 Direct Bilirubin AST 50 H ALT 53 H D Alkaline Phosphatase 107 Lactate Dehydrogenase Troponin I C-React Prot High Sens NT-Pro-B Natriuret Pep Total Protein 5.1 L Albumin 2.0 L Globulin 3.2 Albumin/Globulin Ratio 0.6 L Vitamin B12 Folate Free T4 TSH 3rd Generation Cortisol AM Sample Venous Blood Potassium Urine Color Urine Clarity Urine pH Ur Specific [place] Urine Protein Urine Glucose (UA) Urine Ketones Urine Blood Urine Nitrate Urine Bilirubin Urine Urobilinogen Ur Leukocyte Esterase Urine WBC (Auto) Urine RBC (Auto) Ur Squamous Epith Cells Amorphous Sediment DRE 6 Profile DRE Titer DRE Pattern Blood Type Antibody Screen BENNY, Poly Interpret Negative Assessment & Plan (1) Thrombocytopenia Assessment and Plan: likely exacerbated by sepsis, immunosuppression may have immune mediated component; on steroids check fibrinogen to rule out DIC will review peripheral smear Status: Acute (2) Anemia Assessment and Plan: will check direct kimo, ferritin, retic count, b12, folate to further characterize likely chronic disease, immunosuppression transfusion support PRN Status: Acute (3) Coagulopathy Assessment and Plan: rule out DIC; will check fibrinogen Thank you for this interesting consult. Status: Acute
[2017-03-21] MEDS: Vancomycin 1 gm/NS 200 ml 1 GM/200 ML BAG IVPB SCH ×2 (03:19→17:06)
[2017-03-21] MEDS: Aztreonam 2 GM in Sodium Chloride 0.9% 100 ML IVPB SCH ×3 (03:24→19:37)
[2017-03-21] MEDS: Sodium Chloride 0.9% 1,000 ML IV SCH ×2 (06:19→17:07)
[2017-03-21 06:40] LABS: BASO % 0.2 % (0.0-2.0); HEMOGLOBIN 8.8 g/dL (11.0-16.0); LYMPH # 0.4 K/uL (1.0-4.3); LYMPH % 4.2 % (20.0-40.0); MEAN CELL VOLUME 86.6 fL (81.0-99.0); MEAN CORPUSCULAR HEMOGLOBIN 28.7 pg (27.0-31.0); MEAN CORPUSCULAR HGB CONC 33.1 g/dL (33.0-37.0); MONO # 1.8 K/uL (0.0-0.8); MONO % 18.9 % (0.0-10.0); NEUT # 7.4 K/uL (1.8-7.0); NEUT % 76.7 % (50.0-75.0); NRBC % 0.1 % (0.0-2.0); PLATELET COUNT 51 K/uL (130-400); RBC 3.06 Mil/uL (3.80-5.20); RED CELL DISTRIBUTION WIDTH 18.7 % (11.5-14.5); WHITE BLOOD COUNT 9.6 K/uL (4.8-10.8)
[2017-03-21 06:48] LABS: ALBUMIN 2.1 g/dL (3.5-5.0); ALT/SGPT 52 U/L (9-52); AST/SGOT 52 U/L (14-36); BLOOD UREA NITROGEN 34 mg/dL (7-17); CALCIUM 7.2 mg/dl (8.6-10.4); GFR AFRICAN-AMERICAN > 60; GFR NON-AFRICAN AMERICAN > 60; MAGNESIUM 1.8 mg/dL (1.6-2.3)
--- NOTE | 2017-03-21 06:56 | CP.PCM.CON ---
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 CENTRAL CAUSE Rx GBP ON TITRATION EMG AN OP Past Patient History - Past Medical History & Family History Past Medical History?: Yes - Past Social History Smoking Status: Former Smoker Alcohol: None Drugs: Denies Home Situation {Lives}: With Family Domestic Violence: Negative - CARDIAC Hx Cardiac Disorders: Yes Hx Congestive Heart Failure: Yes Hx Hypertension: Yes - PULMONARY Hx Respiratory Disorders: No - NEUROLOGICAL Hx Neurological Disorder: No - HEENT Hx HEENT Problems: No - RENAL Hx Chronic Kidney Disease: No - ENDOCRINE/METABOLIC Hx Endocrine Disorders: Yes Hx Systemic Lupus Erythematosus: Yes - HEMATOLOGICAL/ONCOLOGICAL Hx Blood Disorders: No - INTEGUMENTARY Hx Dermatological Problems: Yes Other/Comment: multiple open wound bilateral buttocks and right thigh - MUSCULOSKELETAL/RHEUMATOLOGICAL Hx Musculoskeletal Disorders: Yes Hx Falls: Yes Hx Rheumatoid Arthritis: Yes - GASTROINTESTINAL Hx Gastrointestinal Disorders: No - GENITOURINARY/GYNECOLOGICAL Hx Genitourinary Disorders: No - PSYCHIATRIC Hx Psychophysiologic Disorder: No Hx Substance Use: No - SURGICAL HISTORY Hx Surgeries: No - ANESTHESIA Hx Anesthesia: No Meds Allergies/Adverse Reactions: Allergies Allergy/AdvReac Type Severity Reaction Status Date / Time Penicillins Allergy Verified 03/19/17 23:45 Sulfa (Sulfonamide Allergy Verified 03/19/17 23:45 Antibiotics) - Medications Medications: Current Medications Aztreonam 2 gm/ Sodium (Chloride) 100 mls @ 200 mls/hr IVPB Q8H [facility] Last Admin: 03/21/17 03:24 Dose: 200 mls/hr Vancomycin/Sodium Chloride (Vancomycin 1 Gm/Ns 200 Ml) 1 gm in 200 mls @ 133 mls/hr IVPB Q12H [facility] Stop: 03/25/17 15:31 Last Admin: 03/21/17 03:19 Dose: 133 mls/hr Sodium Chloride (Sodium Chloride 0.9%) 1,000 mls @ 100 mls/hr IV .Q10H [facility] Last Admin: 03/21/17 06:19 Dose: 100 mls/hr Methylprednisolone (Solu-Medrol) 40 mg IVP Q12 [facility] Last Admin: 03/20/17 21:58 Dose: 40 mg Ondansetron HCl (Zofran Inj) 4 mg IVP Q6H PRN PRN Reason: Nausea/Vomiting Last Admin: 03/20/17 15:01 Dose: 4 mg Pantoprazole Sodium (Protonix Ec Tab) 40 mg PO DAILY [facility] Last Admin: 03/20/17 10:20 Dose: 40 mg Results - Vital Signs Recent Vital Signs: Last Vital Signs Temp 98.4 F 03/21/17 06:00 Pulse 84 03/21/17 06:00 Resp 23 03/21/17 06:00 BP 91/52 L 03/21/17 05:40 Pulse Ox 93 L 03/21/17 06:00 - Labs Result Diagrams: 03/20/17 20:03 03/21/17 06:22 Labs: Laboratory Results - last 24 hr 03/20/17 03/20/17 03/20/17 04:08 04:56 04:56 WBC RBC Hgb Hct MCV MCH MCHC RDW Plt Count MPV Neut % (Auto) Lymph % (Auto) Linn % (Auto) Eos % (Auto) Baso % (Auto) Neut # Lymph # Linn # Eos # Baso # Neutrophils % (Manual) Band Neutrophils % Lymphocytes % (Manual) Reactive Lymphs % Monocytes % (Manual) Differential Comment Platelet Estimate Hypochromasia (manual) Poikilocytosis (manual Anisocytosis (manual) Tear Drop Cells Ovalocytes ESR 73 H Retic Count Sodium Potassium Chloride Carbon Dioxide Anion Gap BUN Creatinine Est GFR ( Amer) Est GFR (Non-Af Amer) POC Glucose (mg/dL) Random Glucose Calcium Phosphorus Magnesium Ferritin Total Bilirubin Direct Bilirubin AST ALT Alkaline Phosphatase Lactate Dehydrogenase Total Creatine Kinase Total Protein Albumin Globulin Albumin/Globulin Ratio Vitamin B12 > 1000 H Folate DRE 6 Profile Positive H DRE Titer 1:320 H DRE Pattern Speckled H Blood Type Antibody Screen BENNY, Poly Interpret 03/20/17 03/20/17 03/20/17 07:37 08:05 08:05 WBC 6.8 RBC 2.05 L Hgb 5.8 L* Hct 17.7 L MCV 86.2 MCH 28.3 MCHC 32.9 L RDW 21.6 H Plt Count 47 L MPV 8.1 Neut % (Auto) 76.3 H Lymph % (Auto) 5.5 L Linn % (Auto) 17.7 H Eos % (Auto) 0.2 Baso % (Auto) 0.3 Neut # 5.2 Lymph # 0.4 L Linn # 1.2 H Eos # 0.0 Baso # 0.0 Neutrophils % (Manual) Band Neutrophils % Lymphocytes % (Manual) Reactive Lymphs % Monocytes % (Manual) Differential Comment Platelet Estimate Hypochromasia (manual) Poikilocytosis (manual Anisocytosis (manual) Tear Drop Cells Ovalocytes ESR Retic Count Sodium 129 L Potassium 2.0 L* Chloride 96 L Carbon Dioxide 31 H Anion Gap 4 L BUN 50 H Creatinine 0.9 Est GFR ( Amer) > 60 Est GFR (Non-Af Amer) > 60 POC Glucose (mg/dL) 99 Random Glucose 82 Calcium 6.8 L Phosphorus 2.6 Magnesium 1.5 L Ferritin Total Bilirubin 0.7 Direct Bilirubin AST 49 H ALT 43 Alkaline Phosphatase 95 Lactate Dehydrogenase Total Creatine Kinase Total Protein 4.0 L Albumin 1.8 L Globulin 2.2 Albumin/Globulin Ratio 0.8 L Vitamin B12 Folate DRE 6 Profile DRE Titer DRE Pattern Blood Type Antibody Screen BENNY, Poly Interpret 03/20/17 03/20/17 03/20/17 09:50 09:50 11:08 WBC 7.3 RBC 2.15 L Hgb 6.0 L* Hct 18.7 L MCV 87.0 MCH 27.7 MCHC 31.8 L RDW 21.2 H Plt Count 46 L MPV 7.7 Neut % (Auto) 75.4 H Lymph % (Auto) 7.4 L Linn % (Auto) 16.4 H Eos % (Auto) 0.3 Baso % (Auto) 0.5 Neut # 5.5 Lymph # 0.5 L Linn # 1.2 H Eos # 0.0 Baso # 0.0 Neutrophils % (Manual) 74 Band Neutrophils % 8 H Lymphocytes % (Manual) 6 L Reactive Lymphs % 1 H Monocytes % (Manual) 11 H Differential Comment Platelet Estimate Decreased L Hypochromasia (manual) Slight Poikilocytosis (manual Anisocytosis (manual) Moderate Tear Drop Cells Ovalocytes ESR Retic Count 5.6 H Sodium 129 L Potassium 2.0 L* Chloride 94 L Carbon Dioxide 33 H Anion Gap 4 L BUN 48 H Creatinine 1.0 Est GFR ( Amer) > 60 Est GFR (Non-Af Amer) 56 POC Glucose (mg/dL) Random Glucose 104 Calcium 6.9 L Phosphorus Magnesium Ferritin Total Bilirubin Direct Bilirubin 0.4 AST ALT Alkaline Phosphatase Lactate Dehydrogenase 1449 H Total Creatine Kinase Total Protein Albumin Globulin Albumin/Globulin Ratio Vitamin B12 Folate DRE 6 Profile DRE Titer DRE Pattern Blood Type Antibody Screen BENNY, Poly Interpret 03/20/17 03/20/17 03/20/17 11:08 11:56 14:27 WBC RBC Hgb Hct MCV MCH MCHC RDW Plt Count MPV Neut % (Auto) Lymph % (Auto) Linn % (Auto) Eos % (Auto) Baso % (Auto) Neut # Lymph # Linn # Eos # Baso # Neutrophils % (Manual) Band Neutrophils % Lymphocytes % (Manual) Reactive Lymphs % Monocytes % (Manual) Differential Comment Platelet Estimate Hypochromasia (manual) Poikilocytosis (manual Anisocytosis (manual) Tear Drop Cells Ovalocytes ESR Retic Count Sodium Potassium Chloride Carbon Dioxide Anion Gap BUN Creatinine Est GFR ( Amer) Est GFR (Non-Af Amer) POC Glucose (mg/dL) 112 H Random Glucose Calcium Phosphorus Magnesium Ferritin 2110.0 Total Bilirubin Direct Bilirubin AST ALT Alkaline Phosphatase Lactate Dehydrogenase Total Creatine Kinase Total Protein Albumin Globulin Albumin/Globulin Ratio Vitamin B12 > 1000 H Folate > 20.0 DRE 6 Profile DRE Titer DRE Pattern Blood Type O POSITIVE Antibody Screen Negative BENNY, Poly Interpret 03/20/17 03/20/17 03/20/17 20:03 20:03 23:16 WBC 7.4 RBC 2.89 L Hgb 8.2 L D Hct 24.8 L MCV 85.9 MCH 28.4 MCHC 33.1 RDW 18.2 H Plt Count 47 L MPV 8.4 Neut % (Auto) 81.8 H Lymph % (Auto) 3.5 L Linn % (Auto) 14.3 H Eos % (Auto) 0.0 Baso % (Auto) 0.4 Neut # 6.1 Lymph # 0.3 L Linn # 1.1 H Eos # 0.0 Baso # 0.0 Neutrophils % (Manual) 88 H Band Neutrophils % Lymphocytes % (Manual) 5 L Reactive Lymphs % Monocytes % (Manual) 7 Differential Comment Platelet Estimate Markedly decreased L Hypochromasia (manual) Poikilocytosis (manual Slight Anisocytosis (manual) Slight Tear Drop Cells Slight Ovalocytes Slight ESR Retic Count Sodium 134 Potassium 3.0 L Chloride 99 Carbon Dioxide 35 H Anion Gap 3 L BUN 38 H Creatinine 0.8 Est GFR ( Amer) > 60 Est GFR (Non-Af Amer) > 60 POC Glucose (mg/dL) Random Glucose 109 H Calcium 7.1 L Phosphorus 2.8 Magnesium 1.8 Ferritin Total Bilirubin 0.7 Direct Bilirubin AST 50 H ALT 53 H D Alkaline Phosphatase 107 Lactate Dehydrogenase Total Creatine Kinase Total Protein 5.1 L Albumin 2.0 L Globulin 3.2 Albumin/Globulin Ratio 0.6 L Vitamin B12 Folate DRE 6 Profile DRE Titer DRE Pattern Blood Type Antibody Screen BENNY, Poly Interpret Negative 03/21/17 06:22 WBC RBC Hgb Hct MCV MCH MCHC RDW Plt Count MPV Neut % (Auto) Lymph % (Auto) Linn % (Auto) Eos % (Auto) Baso % (Auto) Neut # Lymph # Linn # Eos # Baso # Neutrophils % (Manual) Band Neutrophils % Lymphocytes % (Manual) Reactive Lymphs % Monocytes % (Manual) Differential Comment Platelet Estimate Hypochromasia (manual) Poikilocytosis (manual Anisocytosis (manual) Tear Drop Cells Ovalocytes ESR Retic Count Sodium 134 Potassium 3.5 L Chloride 103 Carbon Dioxide 32 H Anion Gap 3 L BUN 34 H Creatinine 0.6 L Est GFR ( Amer) > 60 Est GFR (Non-Af Amer) > 60 POC Glucose (mg/dL) Random Glucose 99 Calcium 7.2 L Phosphorus 2.8 Magnesium 1.8 Ferritin Total Bilirubin 0.8 Direct Bilirubin AST 52 H ALT 52 Alkaline Phosphatase 114 Lactate Dehydrogenase Total Creatine Kinase 23 L Total Protein 5.5 L Albumin 2.1 L Globulin Albumin/Globulin Ratio Vitamin B12 Folate DRE 6 Profile DRE Titer DRE Pattern Blood Type Antibody Screen BENNY, Poly Interpret
[2017-03-21 06:57] LABS: ALB/GLOB RATIO 0.6 (1.0-2.1)
[2017-03-21 07:00] LABS: PROLACTIN 18.3 ng/mL (3.0-18.9)
[2017-03-21 09:09] LABS: LYMPHOCYTE 1 % (20-40); TOTAL CELLS COUNTED 100
[2017-03-21 09:10] LABS: ANISOCYTOSIS SLIGHT; MONOCYTE 10 % (0-10); NEUTROPHIL 89 % (50-75); PLATELET ESTIMATE DECREASED (NORMAL)
[2017-03-21 09:15] LABS: HYPOCHROMIC SLIGHT; POLYCHROMIC SLIGHT
[2017-03-21 09:16] LABS: TARGET CELLS SLIGHT
[2017-03-21] MEDS: MethylPREDNISolone 40 mg Vial IVP SCH ×2 (10:14→21:20)
[2017-03-21] MEDS: Pantoprazole 40 mg EC Tab PO SCH (10:15)
--- NOTE | 2017-03-21 11:35 | CP.PCM.PN ---
Subjective - Date & Time of Evaluation Date of Evaluation: 03/21/17 Time of Evaluation: 09:00 - Subjective Subjective: improving discussed witrh PMD Objective - Vital Signs/Intake and Output Vital Signs (last 24 hours): Temp Pulse Resp BP Pulse Ox 98.4 F 92 H 27 H 88/53 L 100 03/21/17 06:00 03/21/17 11:00 03/21/17 11:00 03/21/17 10:39 03/21/17 11:00 Intake and Output: 03/21/17 03/21/17 06:59 18:59 Intake Total 1800 500 Output Total 865 290 Balance 935 210 - Medications Medications: Current Medications Gabapentin (Neurontin) 300 mg PO BID [facility] Aztreonam 2 gm/ Sodium (Chloride) 100 mls @ 200 mls/hr IVPB Q8H [facility] Last Admin: 03/21/17 03:24 Dose: 200 mls/hr Vancomycin/Sodium Chloride (Vancomycin 1 Gm/Ns 200 Ml) 1 gm in 200 mls @ 133 mls/hr IVPB Q12H [facility] Stop: 03/25/17 15:31 Last Admin: 03/21/17 03:19 Dose: 133 mls/hr Sodium Chloride (Sodium Chloride 0.9%) 1,000 mls @ 100 mls/hr IV .Q10H [facility] Last Admin: 03/21/17 06:19 Dose: 100 mls/hr Methylprednisolone (Solu-Medrol) 40 mg IVP Q12 [facility] Last Admin: 03/21/17 10:14 Dose: 40 mg Ondansetron HCl (Zofran Inj) 4 mg IVP Q6H PRN PRN Reason: Nausea/Vomiting Last Admin: 03/20/17 15:01 Dose: 4 mg Pantoprazole Sodium (Protonix Ec Tab) 40 mg PO DAILY [facility] Last Admin: 03/21/17 10:15 Dose: 40 mg - Labs Labs: 03/21/17 06:22 03/21/17 06:22 PT 16.2 SECONDS (9.7-12.2) H 03/20/17 04:08 INR 1.4 03/20/17 04:08 APTT 38 SECONDS (21-34) H D 03/20/17 04:08 - Constitutional Appears: Cachectic, Chronically Ill - Head Exam Head Exam: NORMOCEPHALIC - Eye Exam Eye Exam: PERRL - ENT Exam ENT Exam: Mucous Membranes Dry - Neck Exam Neck Exam: absent: Lymphadenopathy - Respiratory Exam Respiratory Exam: Decreased Breath Sounds, Rhonchi - Cardiovascular Exam Cardiovascular Exam: REGULAR RHYTHM Assessment and Plan (1) Anemia Status: Acute (2) CHF (congestive heart failure) Status: Acute (3) Coagulopathy Status: Acute (4) Fever Status: Acute (5) Hypoglycemia Status: Acute (6) Sepsis Status: Acute
--- NOTE | 2017-03-21 13:46 | US ---
PROCEDURE: Ultrasound of the Bladder HISTORY: cauda equina syndrome COMPARISON: None available. TECHNIQUE: Sonographic evaluation of the bladder was performed. FINDINGS: Unremarkable without wall thickening or intraluminal debris. No calculus or gross mass lesion. No free fluid in pelvis. Prevoid Volume: 185.0 cc. No postvoid residual evident. Right ureteral jet is not identified. The left ureteral jet is seen. IMPRESSION: Prevoid volume: 185.0 cc. No postvoid residual evident.
--- NOTE | 2017-03-21 17:25 | CON ---
ATTENDING PHYSICIAN: Marah Pillai MD. REASON FOR THE CONSULTATION: Weakness. CHIEF COMPLAINT: The patient was brought into [facility] with history of progressive weakness of her legs. From neurological point of view, I was called in to evaluate her for further management. HISTORY OF PRESENT ILLNESS: Ms. Mariah Awad is a 61-year-old right-handed -[place] female presenting with about four months history of leg weakness, which has been progressive in nature to the extent that she couldn't walk with pain and weakness for the last 2 weeks. She also admits that she urinated by herself in this same period of time. No history of back pain. No history of neck pain. No history of headache. No history of visual or bulbar dysfunction. No history of focal weakness of her arms. No history of loss of consciousness. No history of involuntary movements. PAST MEDICAL HISTORY: Significant for systemic lupus erythematosus for many years. ALLERGIES: PENICILLIN, SULFA. MEDICATIONS: Protonix, methylprednisolone, vancomycin, REVIEW OF SYSTEMS: A 12-point systems was obtained and reviewed. From neuro, the patient has progressive weakness of her legs with pain. PHYSICAL EXAMINATION: VITAL SIGNS: Blood pressure 91/52 with mean artery pressure of 65, respiratory rate 16, temperature afebrile. NECK: Supple. No carotid bruits. HEART: Sounds are regular. CHEST: Fair air entry. EXTREMITIES: Both legs are 3+ pitting edema, both legs were externally rotated. NEUROLOGIC: Mental status examination, she is awake, alert and oriented to person, place and time. Speech is clear. Naming, repetition, fluency, comprehension all within normal. CRANIAL NERVE: Visual field intact. Pupils react to light. Extraocular movement normal. No nystagmus. No facial sensory deficit. No facial asymmetry. Hearing is normal. Tongue is midline. Good gag. MOTOR EXAMINATION: Outstretched hand with eyes closed, no drift noted. Power is symmetric on either side. Deep tendon reflexes of biceps, brachialis, triceps are absent. Plantars are equivocal response, very painful to touch. All stimulation including tactile, pinprick, pain, vibration all are hypersensitive in both lower extremities presenting with allodynic feature. [id number]-afmx dysmetria noted in both lower extremities. Lower extremity weakness manifesting with proximal weakness, right more than the left side with 3/5 and proximally, she was able to move her toes up and down without lifting her ankle. WORKUP: WBC 7.4, hemoglobin 8.2, hematocrit 24.8, platelet 47. PT 16.2, INR 1.4, PTT 38. Sodium 134, potassium 3.5, chloride 103, bicarbonate 32, BUN 34, creatinine 0.6, GFR more than 60, glucose 99, calcium 7.2, AST 52, ALT 52, total protein 5.25, globulin 2.1. B12 more than 1000. Prolactin pending. DRE is positive with a speckled pattern of 1 in 320. The patient did have an echocardiogram, which showed left atrium mildly dilated, aortic valve mildly to moderately sclerotic. No pulmonary hypertension. The patient does show a left ventricular systolic dysfunction with ejection fraction of 75%. CONCLUSION: Ms. Mariah Awad has been presenting with significant painful sensorimotor neuropathy associating with neurogenic bladder. 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 However, the structural cause should be ruled out such as herniated disk or myelopathy is under consideration. The patient is requested to have blood workup as per the order. The patient also requested to have MRI of the thoracic and lumbosacral spine with ultrasound of the bladder to rule out any neurogenic bladder. For pain, the patient can be benefited by adding gabapentin and titrate the medication slowly as she tolerates. The patient will be followed closely with you. Andres Wilson MD MTDD
--- NOTE | 2017-03-21 19:24 | CP.PCM.PN ---
Subjective - Date & Time of Evaluation Date of Evaluation: 03/21/17 Time of Evaluation: 17:00 - Subjective Subjective: Feeling better, mental status improved Objective - Vital Signs/Intake and Output Vital Signs (last 24 hours): Temp Pulse Resp BP Pulse Ox 97.9 F 141 H 16 104/62 95 03/21/17 14:00 03/21/17 18:00 03/21/17 18:00 03/21/17 17:39 03/21/17 18:00 Intake and Output: 03/21/17 03/22/17 18:59 06:59 Intake Total 1560 Output Total 1390 Balance 170 - Medications Medications: Current Medications Gabapentin (Neurontin) 300 mg PO BID [facility] Last Admin: 03/21/17 17:10 Dose: 300 mg Aztreonam 2 gm/ Sodium (Chloride) 100 mls @ 200 mls/hr IVPB Q8H [facility] Last Admin: 03/21/17 11:45 Dose: 200 mls/hr Vancomycin/Sodium Chloride (Vancomycin 1 Gm/Ns 200 Ml) 1 gm in 200 mls @ 133 mls/hr IVPB Q12H [facility] Stop: 03/25/17 15:31 Last Admin: 03/21/17 17:06 Dose: 133 mls/hr Sodium Chloride (Sodium Chloride 0.9%) 1,000 mls @ 100 mls/hr IV .Q10H [facility] Last Admin: 03/21/17 17:07 Dose: 100 mls/hr Methylprednisolone (Solu-Medrol) 40 mg IVP Q12 [facility] Last Admin: 03/21/17 10:14 Dose: 40 mg Ondansetron HCl (Zofran Inj) 4 mg IVP Q6H PRN PRN Reason: Nausea/Vomiting Last Admin: 03/20/17 15:01 Dose: 4 mg Pantoprazole Sodium (Protonix Ec Tab) 40 mg PO DAILY [facility] Last Admin: 03/21/17 10:15 Dose: 40 mg - Labs Labs: 03/21/17 06:22 03/21/17 06:22 PT 16.2 SECONDS (9.7-12.2) H 03/20/17 04:08 INR 1.4 03/20/17 04:08 APTT 38 SECONDS (21-34) H D 03/20/17 04:08 - Head Exam Head Exam: ATRAUMATIC - Eye Exam Eye Exam: Normal appearance - ENT Exam ENT Exam: Mucous Membranes Dry - Respiratory Exam Respiratory Exam: NORMAL BREATHING PATTERN - Cardiovascular Exam Cardiovascular Exam: +S1, +S2 - GI/Abdominal Exam GI & Abdominal Exam: Normal Bowel Sounds Assessment and Plan (1) Thrombocytopenia Assessment & Plan: immunosuppression and immune mediated suspected element of sepsis slightly improved on steroids i Status: Acute (2) Anemia Assessment & Plan: s/p 2U PRBC direct kimo negative low retic index; hypoproliferative erythroid response unlikely acute hemolysis anemia of chronic disease immunosuppression contribution on marrow Status: Acute (3) Coagulopathy Assessment & Plan: nutriotional Status: Acute
[2017-03-22] MEDS: Sodium Chloride 0.9% 1,000 ML IV SCH ×4 (02:00→23:02)
[2017-03-22] MEDS: Aztreonam 2 GM in Sodium Chloride 0.9% 100 ML IVPB SCH ×3 (02:55→19:53)
[2017-03-22] MEDS: Vancomycin 1 gm/NS 200 ml 1 GM/200 ML BAG IVPB SCH ×2 (03:26→15:10)
[2017-03-22 07:35] LABS: BASO % 0.3 % (0.0-2.0); HEMOGLOBIN 8.3 g/dL (11.0-16.0); LYMPH # 0.3 K/uL (1.0-4.3); LYMPH % 3.3 % (20.0-40.0); MEAN CELL VOLUME 87.3 fL (81.0-99.0); MEAN CORPUSCULAR HGB CONC 33.2 g/dL (33.0-37.0); MEAN PLATELET VOLUME 8.5 fL (7.2-11.7); MONO # 1.7 K/uL (0.0-0.8); MONO % 18.9 % (0.0-10.0); NEUT % 77.5 % (50.0-75.0); PLATELET COUNT 52 K/uL (130-400); RBC 2.86 Mil/uL (3.80-5.20); RED CELL DISTRIBUTION WIDTH 19.3 % (11.5-14.5)
[2017-03-22 08:25] LABS: ALB/GLOB RATIO 0.9 (1.0-2.1); ALBUMIN 2.1 g/dL (3.5-5.0); ALT/SGPT 46 U/L (9-52); AST/SGOT 40 U/L (14-36); BLOOD UREA NITROGEN 29 mg/dL (7-17); CALCIUM 7.3 mg/dl (8.6-10.4); GFR AFRICAN-AMERICAN > 60; GFR NON-AFRICAN AMERICAN > 60
[2017-03-22 08:35] LABS: ANISOCYTOSIS MODERATE; BANDS 3 % (0-2); HYPOCHROMIC SLIGHT; LYMPHOCYTE 4 % (20-40); MONOCYTE 11 % (0-10); NEUTROPHIL 82 % (50-75); PLATELET ESTIMATE DECREASED (NORMAL); POIKILOCYTOSIS SLIGHT; TOTAL CELLS COUNTED 100
[2017-03-22 08:36] LABS: BURR CELLS SLIGHT
--- NOTE | 2017-03-22 09:04 | PN ---
DATE: 03/22/2017 NEUROLOGICAL PROBLEM: Possible cauda equina syndrome superimposed with painful sensorimotor neuropathy. PHYSICAL EXAMINATION: VITAL SIGNS: Blood pressure 111/72, mean arterial pressure of 84, respiratory rate is 16, temperature afebrile. NEUROLOGIC: The patient is more awake, alert and oriented to person, place and time. No focal weakness. Still she has hypersensitivity of her lower extremities below her knees. The swelling is somewhat decreased compared with my yesterday's exam. LABORATORY DATA: Her workup, the urinary bladder does not show any postvoid residual urine. Other workup is still pending. ASSESSMENT AND PLAN: As she has been placed on gabapentin, dose can be slowly increased as she tolerates. The patient will be followed closely with you. Andres Wilson MD
[2017-03-22] MEDS ORDERED: Potassium Chloride 20 mEq ER Tab PO ONE (09:11)
--- NOTE | 2017-03-22 09:13 | CP.PCM.PN ---
Subjective - Date & Time of Evaluation Date of Evaluation: 03/22/17 Time of Evaluation: 07:30 - Subjective Subjective: Medicine Progress Note Patient seen and examined. Patient is awake and alert, responding appropriately to questions. Patient states that her legs are in a lot of pain and that she is unable to quantify or the describe the amount of pain she feels. Patient states that she has not been out of bed yet. Denies chest pain , shortness of breath, cough, headache, dizziness, and abdominal pain. Objective - Vital Signs/Intake and Output Vital Signs (last 24 hours): Temp Pulse Resp BP Pulse Ox 98.7 F 85 17 112/69 100 03/22/17 04:00 03/22/17 08:00 03/22/17 08:00 03/22/17 07:39 03/22/17 08:00 Intake and Output: 03/22/17 03/22/17 06:59 18:59 Intake Total 400 Output Total 0 Balance 400 - Medications Medications: Current Medications Gabapentin (Neurontin) 300 mg PO BID [facility] Last Admin: 03/21/17 17:10 Dose: 300 mg Aztreonam 2 gm/ Sodium (Chloride) 100 mls @ 200 mls/hr IVPB Q8H [facility] Last Admin: 03/22/17 02:55 Dose: 200 mls/hr Vancomycin/Sodium Chloride (Vancomycin 1 Gm/Ns 200 Ml) 1 gm in 200 mls @ 133 mls/hr IVPB Q12H [facility] Stop: 03/25/17 15:31 Last Admin: 03/22/17 03:26 Dose: 133 mls/hr Sodium Chloride (Sodium Chloride 0.9%) 1,000 mls @ 100 mls/hr IV .Q10H [facility] Last Admin: 03/22/17 02:00 Dose: Not Given Methylprednisolone (Solu-Medrol) 40 mg IVP Q12 [facility] Last Admin: 03/21/17 21:20 Dose: 40 mg Ondansetron HCl (Zofran Inj) 4 mg IVP Q6H PRN PRN Reason: Nausea/Vomiting Last Admin: 03/20/17 15:01 Dose: 4 mg Pantoprazole Sodium (Protonix Ec Tab) 40 mg PO DAILY [facility] Last Admin: 03/21/17 10:15 Dose: 40 mg - Labs Labs: 03/22/17 07:30 03/22/17 07:30 PT 16.2 SECONDS (9.7-12.2) H 03/20/17 04:08 INR 1.4 03/20/17 04:08 APTT 38 SECONDS (21-34) H D 03/20/17 04:08 - Constitutional Appears: Non-toxic, No Acute Distress - Head Exam Head Exam: ATRAUMATIC, NORMOCEPHALIC - Eye Exam Eye Exam: EOMI, Normal appearance - ENT Exam ENT Exam: Mucous Membranes Moist, Normal Exam - Neck Exam Neck Exam: Normal Inspection - Respiratory Exam Respiratory Exam: Clear to Ausculation Bilateral, NORMAL BREATHING PATTERN. absent: Rhonchi, Wheezes, Respiratory Distress - Cardiovascular Exam Cardiovascular Exam: REGULAR RHYTHM, +S1, +S2. absent: Murmur - GI/Abdominal Exam GI & Abdominal Exam: Soft, Normal Bowel Sounds - Extremities Exam Extremities Exam: absent: Joint Swelling, Pedal Edema Additional comments: Severe pain to lower extremities with light touch - Neurological Exam Neurological Exam: Alert, Awake, Oriented x3 - Psychiatric Exam Psychiatric exam: Normal Affect, Normal Mood - Skin Skin Exam: Dry, Intact, Normal Color, Warm Assessment and Plan - Assessment and Plan (Free Text) Assessment: Sepsis, resolved Fever on admission with lactate 5.2, admitted to ICU Afebrile since 03/20, no leukocytosis Blood culture negative x48 hrs Urine culture positive for gram + cocci ID Dr Bolanos consulted- help appreciated Aztreonam 2gm IV q8h started on 03/20 Vanco 1gm IV q12h started on 03/20 ECHO- LV EF 75%, normal systolic function Painful Sensoromotor Neuropathy May be secondary to Cauda Equina Syndrome Neurologist Dr Wilson consulted- help appreciated Gabapentin 300mg PO BID Solumedrol 40mg IV q12h LE dopplers negative for DVT Thrombocytopenia Immunosuppression and immune mediated suspected Element of sepsis Will continue to monitor Anemia of chronic disease Hgb stable at 8.3 s/p 2U PRBC transfusion Consulted Dr Daley (heme/onc)- help appreciated direct kimo negative low retic index; hypoproliferative erythroid response unlikely acute hemolysis immunosuppression contribution on marrow Hx Lupus Was taking home meds leflunomide and hydroxychloroquine, held on admission Prophylactic measures Contraindication for SCDs due to pain Contraindication for anticoagulation due to thrombocytopenia Protonix 40mg PO daily Management per Dr Pillai
[2017-03-22] MEDS: Pantoprazole 40 mg EC Tab PO SCH (09:44)
[2017-03-22] MEDS: MethylPREDNISolone 40 mg Vial IVP SCH ×2 (09:44→21:06)
[2017-03-22 11:27] LABS: AMYLASE 103 U/L (30-110)
[2017-03-22 11:55] LABS: COMPLEMENT C4 22.2 mg/dL (14.0-44.0)
--- NOTE | 2017-03-22 13:30 | MRI ---
PROCEDURE: MRI of the brain dated 03/22/2017. HISTORY: new stroke COMPARISON: No prior study available for comparison. TECHNIQUE: Multiplanar, multisequence MR images of the brain were obtained without intravenous contrast enhancement. FINDINGS: HEMORRHAGE: No acute parenchymal, subarachnoid or extra-axial hemorrhage. No evidence of hemosiderin deposition identified on gradient echo weighted sequence. DWI: There is a faint area of restricted diffusion seen in the mid diana that most likely represent acute/subacute infarct changes. . Note that motion artifact partially obscures fine detail at this level on the diffusion sequence. BRAIN PARENCHYMA: Minimal chronic periventricular white matter ischemic changes are present. In addition, there are areas of increased T2 signal also seen in the mid diana that may represent sequela of small vessel disease chronic infarct changes as well. Moderate generalized volume loss. VENTRICLES: No obstructive hydrocephalus. CRANIUM: No obvious calvarial abnormalities ORBITS: Orbits and contents unremarkable. PARANASAL SINUSES/MASTOIDS: Clear VASCULAR SYSTEM: Visualized major vascular flow voids at skull base are patent. OTHER FINDINGS: None. IMPRESSION: Acute/subacute infarct changes are felt be present within the mid diana. Note however that these changes are poorly seen due to motion artifact.
[2017-03-22] MEDS: Vitamins A & D Oint UD Foilpak TOP SCH ×2 (15:11→19:53)
[2017-03-22 15:34] LABS: ALDOLASE 14.1 U/L (<=8.1)
--- NOTE | 2017-03-22 17:06 | MRI ---
PROCEDURE: MRI of the thoracic spine dated 03/22/2017. HISTORY: Myelopathy. COMPARISON: None available. No prior study available for comparison TECHNIQUE: Multiecho multiplanar sequences were performed through the thoracic spine without the use of intravenous contrast. . FINDINGS: The current study reveals no acute compression fractures no retropulsed fragments. Vertebral bodies exhibit normal stature. Vertebral bodies and facets normally aligned. ALIGNMENT: No acute compression fractures no retropulsed fragments. The vertebral bodies exhibit relatively normal stature. Vertebral bodies and facets normally aligned. Mild disc desiccation changes are present throughout some of which appear age related. . At the C7-T1 level, there is also a the small broad-based osteophytic ridge disc complex which flattens the ventral surface of the thecal sac and appears to mildly flatten the ventral surface of the cord. The overall central canal is slightly narrowed as well. At the at T2-T3 level, there is a small focal central and right parasagittal focal disc protrusion that indents the ventral surface of the thecal sac and appears to focally indent the ventral surface of the cord. The central canal is also slightly narrowed at this level. At the T3-T4 level there is also a small asymmetric central and right parasagittal osteophytic ridge disc complex that flattens the ventral surface of the thecal sac and spinal cord centrally and to the left more so than right. Central canal is of also slightly narrowed at this level. . No disc herniation or significant disc bulges seen at the remaining levels. . Exit foramina appear adequate throughout. There are no definitive focal areas of abnormal signal seen within the visualized spinal cord. Note made of moderate to fairly significant degenerative spondylosis of the cervical spine seen on the sagittal counting sequence with the moderate canal stenosis as well as a cord compression most significant at at the C4-C5 and C5-C6 levels. Consider followup MRI of the cervical spine. Bilateral pleural effusions which were also seen on prior chest radiograph 03/20/2017. Small approximately 2.24 x 1.86 cm elliptical shaped cyst upper pole right kidney. IMPRESSION: No acute fractures. . Mild multilevel degenerative spondylosis a few areas of mild cord compression and mild canal narrowing. Note made of more significant degenerative spondylosis of the cervical spine with canal stenosis and cord compression at several levels. Follow-up of MRI of the cervical spine may be prudent. . See above discussion for additional details and findings.
--- NOTE | 2017-03-22 17:29 | MRI ---
PROCEDURE: MRI lumbar spine dated 03/22/2017 HISTORY: Myelopathy. COMPARISON: No prior study available for comparison TECHNIQUE: Multi echo multiplanar sequences were performed through the lumbar spine without the use of intravenous contrast. FINDINGS: No evidence of acute compression fractures no retropulsed fragments. Vertebral bodies exhibit normal stature. Vertebral bodies and facets normally aligned. T12-L1: No disc herniation, spinal canal stenosis or neural foraminal narrowing. L1-2: Adequate disc height and hydration. Minimal proximal left foraminal disc bulge. L2-3: There is mild disc desiccation. Disc space height is relatively maintained. There is right parasagittal disc herniation which extends superiorly over a very short distance as well as into the proximal inferior margin of the right exit foramen. The facets also hypertrophic and flavum buckled. There is bilateral lateral recess and central canal stenosis. Right exit foramen is quite stenotic with compression of the right-sided L2 foraminal nerve root. Left exit foramen is also stenotic. . L3-4: There is disc desiccation however disc space heights relatively maintained. Minimal broad-based bulge of the posterior annulus is present. The facet joints also quite hypertrophic and flavum buckled. There is significant central canal and bilateral lateral recess stenosis. Disc also encroaches into the proximal inferior margins of both exit foramina. Exit foramina are also mildly narrowed. L4-5: There is mild disc desiccation. Minimal anterior subluxation L4 over L5. Small broad-based disc bulge extends on slightly into the proximal inferior margins of both exit foramina more the results and mild mild flattening of the ventral surface of the thecal sac and mild bilateral lateral recess narrowing. Central canal is also mildly narrowed. Facets are quite hypertrophic with minor bilateral foraminal narrowing. . Disc reaches the anterior inferior surface surfaces of the right and left L4 foraminal nerve roots. . L5-S1: There is relatively adequate disc height and hydration. No disc herniation or significant disc bulge. The facet joints are mildly hypertrophic. The overall central bony canal and exit foramina appear adequate despite mild facet arthropathy. Other Findings None. IMPRESSION: No acute fractures. Multilevel degenerative spondylosis most significantly affecting the L3-L4 and L2-L3 levels and to a lesser degree L4-L5 levels as detailed above.
--- NOTE | 2017-03-22 18:28 | CP.PCM.PN ---
Subjective - Date & Time of Evaluation Date of Evaluation: 03/22/17 Time of Evaluation: 09:00 - Subjective Subjective: AWAKE ALERT LESS CONFUSED NAD Objective - Vital Signs/Intake and Output Vital Signs (last 24 hours): Temp Pulse Resp BP Pulse Ox 98.7 F 99 H 26 H 110/66 100 03/22/17 04:00 03/22/17 18:06 03/22/17 18:06 03/22/17 18:06 03/22/17 12:00 Intake and Output: 03/22/17 03/22/17 06:59 18:59 Intake Total 2000 1700 Output Total 700 500 Balance 1300 1200 - Medications Medications: Current Medications Gabapentin (Neurontin) 300 mg PO BID [facility] Last Admin: 03/22/17 17:12 Dose: 300 mg Aztreonam 2 gm/ Sodium (Chloride) 100 mls @ 200 mls/hr IVPB Q8H [facility] Last Admin: 03/22/17 11:46 Dose: 200 mls/hr Vancomycin/Sodium Chloride (Vancomycin 1 Gm/Ns 200 Ml) 1 gm in 200 mls @ 133 mls/hr IVPB Q12H [facility] Stop: 03/25/17 15:31 Last Admin: 03/22/17 15:10 Dose: 133 mls/hr Sodium Chloride (Sodium Chloride 0.9%) 1,000 mls @ 100 mls/hr IV .Q10H [facility] Last Admin: 03/22/17 14:13 Dose: Not Given Methylprednisolone (Solu-Medrol) 40 mg IVP Q12 [facility] Last Admin: 03/22/17 09:44 Dose: 40 mg Ondansetron HCl (Zofran Inj) 4 mg IVP Q6H PRN PRN Reason: Nausea/Vomiting Last Admin: 03/20/17 15:01 Dose: 4 mg Pantoprazole Sodium (Protonix Ec Tab) 40 mg PO DAILY [facility] Last Admin: 03/22/17 09:44 Dose: 40 mg Vitamin A (Vitamin A & D Oint Ud Foilpak) 0.5 ea TOP Q4 [facility] Last Admin: 03/22/17 15:11 Dose: 0.5 ea - Labs Labs: 03/22/17 07:30 03/22/17 07:30 PT 16.2 SECONDS (9.7-12.2) H 03/20/17 04:08 INR 1.4 03/20/17 04:08 APTT 38 SECONDS (21-34) H D 03/20/17 04:08 - Constitutional Appears: Non-toxic, Chronically Ill - Head Exam Head Exam: NORMOCEPHALIC - Eye Exam Eye Exam: PERRL. absent: Scleral icterus - ENT Exam ENT Exam: Mucous Membranes Dry - Neck Exam Neck Exam: absent: Lymphadenopathy - Respiratory Exam Respiratory Exam: Decreased Breath Sounds - Cardiovascular Exam Cardiovascular Exam: REGULAR RHYTHM - GI/Abdominal Exam GI & Abdominal Exam: Distended, Soft - Rectal Exam Rectal Exam: Deferred - Exam Exam: NORMAL INSPECTION - Extremities Exam Extremities Exam: absent: Pedal Edema - Back Exam Back Exam: absent: CVA tenderness (L), CVA tenderness (R) - Neurological Exam Neurological Exam: Alert, Awake, CN II-XII Intact Assessment and Plan (1) Anemia Status: Acute (2) CHF (congestive heart failure) Status: Acute (3) Coagulopathy Status: Acute (4) Fever Status: Acute (5) Hypoglycemia Status: Acute (6) Leg pain, bilateral Status: Acute (7) Sepsis Status: Acute (8) Thrombocytopenia Status: Acute - Assessment and Plan (Free Text) Plan: CULTURES NEG THUS FAR CONT EMPIRIC RX
--- NOTE | 2017-03-22 20:54 | CP.PCM.PN ---
Subjective - Date & Time of Evaluation Date of Evaluation: 03/22/17 Time of Evaluation: 15:00 - Subjective Subjective: Feeling better Objective - Vital Signs/Intake and Output Vital Signs (last 24 hours): Temp Pulse Resp BP Pulse Ox 97.5 F L 96 H 29 H 107/77 100 03/22/17 20:00 03/22/17 20:00 03/22/17 20:00 03/22/17 19:59 03/22/17 20:00 Intake and Output: 03/22/17 03/23/17 18:59 06:59 Intake Total 1700 Output Total 500 Balance 1200 - Medications Medications: Current Medications Clopidogrel Bisulfate (Plavix) 75 mg PO DAILY [facility] Famotidine (Pepcid) 20 mg PO BID [facility] Gabapentin (Neurontin) 300 mg PO BID [facility] Last Admin: 03/22/17 17:12 Dose: 300 mg Aztreonam 2 gm/ Sodium (Chloride) 100 mls @ 200 mls/hr IVPB Q8H [facility] Last Admin: 03/22/17 19:53 Dose: 200 mls/hr Vancomycin/Sodium Chloride (Vancomycin 1 Gm/Ns 200 Ml) 1 gm in 200 mls @ 133 mls/hr IVPB Q12H [facility] Stop: 03/25/17 15:31 Last Admin: 03/22/17 15:10 Dose: 133 mls/hr Sodium Chloride (Sodium Chloride 0.9%) 1,000 mls @ 100 mls/hr IV .Q10H [facility] Last Admin: 03/22/17 14:13 Dose: Not Given Methylprednisolone (Solu-Medrol) 40 mg IVP Q12 [facility] Last Admin: 03/22/17 09:44 Dose: 40 mg Ondansetron HCl (Zofran Inj) 4 mg IVP Q6H PRN PRN Reason: Nausea/Vomiting Last Admin: 03/20/17 15:01 Dose: 4 mg Vitamin A (Vitamin A & D Oint Ud Foilpak) 0.5 ea TOP Q4 [facility] Last Admin: 03/22/17 19:53 Dose: 0.5 ea - Labs Labs: 03/22/17 07:30 03/22/17 07:30 PT 16.2 SECONDS (9.7-12.2) H 03/20/17 04:08 INR 1.4 03/20/17 04:08 APTT 38 SECONDS (21-34) H D 03/20/17 04:08 - Head Exam Head Exam: ATRAUMATIC - Eye Exam Eye Exam: Normal appearance - ENT Exam ENT Exam: Mucous Membranes Dry - Respiratory Exam Respiratory Exam: NORMAL BREATHING PATTERN - Cardiovascular Exam Cardiovascular Exam: +S1, +S2 - GI/Abdominal Exam GI & Abdominal Exam: Normal Bowel Sounds Assessment and Plan (1) Thrombocytopenia Assessment & Plan: immunosuppression and immune mediated suspected element of sepsis slightly improved on steroids Status: Acute (2) Anemia Assessment & Plan: s/p 2U PRBC direct kimo negative low retic index; hypoproliferative erythroid response unlikely acute hemolysis anemia of chronic disease immunosuppression contribution on marrow Status: Acute (3) Coagulopathy Assessment & Plan: nutritional Status: Acute
[2017-03-23] MEDS: Vancomycin 1 gm/NS 200 ml 1 GM/200 ML BAG IVPB SCH ×2 (03:14→15:01)
[2017-03-23] MEDS: Vitamins A & D Oint UD Foilpak TOP SCH ×6 (03:14→21:02)
[2017-03-23] MEDS: Aztreonam 2 GM in Sodium Chloride 0.9% 100 ML IVPB SCH ×2 (03:14→12:00)
[2017-03-23 06:24] LABS: BASO % 0.3 % (0.0-2.0); HEMOGLOBIN 7.6 g/dL (11.0-16.0); LYMPH # 0.3 K/uL (1.0-4.3); LYMPH % 3.5 % (20.0-40.0); MEAN CELL VOLUME 88.4 fL (81.0-99.0); MEAN CORPUSCULAR HEMOGLOBIN 28.1 pg (27.0-31.0); MEAN CORPUSCULAR HGB CONC 31.8 g/dL (33.0-37.0); MEAN PLATELET VOLUME 8.8 fL (7.2-11.7); MONO # 1.7 K/uL (0.0-0.8); MONO % 22.5 % (0.0-10.0); NEUT # 5.4 K/uL (1.8-7.0); NEUT % 73.7 % (50.0-75.0); NRBC % 0.1 % (0.0-2.0); PLATELET COUNT 46 K/uL (130-400); RED CELL DISTRIBUTION WIDTH 19.5 % (11.5-14.5); WHITE BLOOD COUNT 7.4 K/uL (4.8-10.8)
[2017-03-23 06:52] LABS: ALB/GLOB RATIO 0.8 (1.0-2.1); ALT/SGPT 48 U/L (9-52); AST/SGOT 36 U/L (14-36); BLOOD UREA NITROGEN 22 mg/dL (7-17); CALCIUM 7.2 mg/dl (8.6-10.4); GFR AFRICAN-AMERICAN > 60; GFR NON-AFRICAN AMERICAN > 60; MAGNESIUM 1.6 mg/dL (1.6-2.3)
[2017-03-23 08:29] LABS: ANISOCYTOSIS MODERATE; BANDS 5 % (0-2); HYPOCHROMIC SLIGHT; LYMPHOCYTE 4 % (20-40); MONOCYTE 21 % (0-10); NEUTROPHIL 70 % (50-75); NUCLEATED RED BLOOD CELL 1 % (0-0); PLATELET ESTIMATE DECREASED (NORMAL); TOTAL CELLS COUNTED 100
[2017-03-23] MEDS ORDERED: Potassium Phosphate 15 MMOLE in Dextrose 5% In Water 250 ML IVPB ONE (08:57)
--- NOTE | 2017-03-23 09:03 | CP.PCM.PN ---
Subjective - Date & Time of Evaluation Date of Evaluation: 03/23/17 Time of Evaluation: 07:30 - Subjective Subjective: Medicine Progress Note Patient seen and examined. Patient states that she is still experiencing severe leg pain. The patient was seen by neurologist this morning. Patient was informed of results of MRI exams that were performed yesterday. Per patient , she is not experiencing pain in her back wound and is being turned in her bed daily. Patient has not been out of bed yet. Denies fever, chills, nausea, vomiting, chest pain, headache, dizziness, and shortness of breath. Objective - Vital Signs/Intake and Output Vital Signs (last 24 hours): Temp Pulse Resp BP Pulse Ox 97.5 F L 89 20 113/68 99 03/23/17 04:00 03/23/17 04:00 03/23/17 04:00 03/23/17 04:00 03/23/17 04:00 Intake and Output: 03/23/17 03/23/17 06:59 18:59 Intake Total 2080 Output Total 700 Balance 1380 - Medications Medications: Current Medications Clopidogrel Bisulfate (Plavix) 75 mg PO DAILY [facility] Famotidine (Pepcid) 20 mg PO BID [facility] Gabapentin (Neurontin) 400 mg PO BID [facility] Aztreonam 2 gm/ Sodium (Chloride) 100 mls @ 200 mls/hr IVPB Q8H [facility] Last Admin: 03/23/17 03:14 Dose: 200 mls/hr Vancomycin/Sodium Chloride (Vancomycin 1 Gm/Ns 200 Ml) 1 gm in 200 mls @ 133 mls/hr IVPB Q12H [facility] Stop: 03/25/17 15:31 Last Admin: 03/23/17 03:14 Dose: 133 mls/hr Sodium Chloride (Sodium Chloride 0.9%) 1,000 mls @ 100 mls/hr IV .Q10H [facility] Last Admin: 03/22/17 23:02 Dose: 100 mls/hr Potassium Phosphate 15 mmole/ (Sodium Chloride) 255 mls @ 42.5 mls/hr IVPB ONCE ONE Stop: 03/23/17 14:56 Methylprednisolone (Solu-Medrol) 40 mg IVP Q12 [facility] Last Admin: 03/22/17 21:06 Dose: 40 mg Ondansetron HCl (Zofran Inj) 4 mg IVP Q6H PRN PRN Reason: Nausea/Vomiting Last Admin: 03/20/17 15:01 Dose: 4 mg Vitamin A (Vitamin A & D Oint Ud Foilpak) 0.5 ea TOP Q4 [facility] Last Admin: 03/23/17 03:14 Dose: 0.5 ea - Labs Labs: 03/23/17 06:16 03/23/17 06:16 PT 16.2 SECONDS (9.7-12.2) H 03/20/17 04:08 INR 1.4 03/20/17 04:08 APTT 38 SECONDS (21-34) H D 03/20/17 04:08 - Constitutional Appears: Non-toxic, No Acute Distress - Head Exam Head Exam: ATRAUMATIC, NORMOCEPHALIC - Eye Exam Eye Exam: EOMI, Normal appearance - ENT Exam ENT Exam: Mucous Membranes Moist, Normal Exam - Neck Exam Neck Exam: Normal Inspection - Respiratory Exam Respiratory Exam: Clear to Ausculation Bilateral, NORMAL BREATHING PATTERN. absent: Rhonchi, Wheezes, Respiratory Distress - Cardiovascular Exam Cardiovascular Exam: REGULAR RHYTHM, +S1, +S2. absent: Murmur - GI/Abdominal Exam GI & Abdominal Exam: Soft, Normal Bowel Sounds - Extremities Exam Extremities Exam: absent: Joint Swelling, Pedal Edema Additional comments: Severe pain to lower extremities with light touch - Neurological Exam Neurological Exam: Alert, Awake, Oriented x3 - Psychiatric Exam Psychiatric exam: Normal Affect, Normal Mood - Skin Skin Exam: Dry, Warm Assessment and Plan - Assessment and Plan (Free Text) Assessment: Sepsis, resolved Likely secondary to infection of wound Fever on admission with lactate 5.2, admitted to ICU Afebrile since 03/20, no leukocytosis Blood culture negative x 3 days Urine culture positive for gram + cocci ID Dr Bolanos consulted- help appreciated Aztreonam 2gm IV q8h started on 03/20 Vanco 1gm IV q12h started on 03/20 ECHO- LV EF 75%, normal systolic function Painful Sensoromotor Neuropathy 03/22 Lumbar spine MRI- Multilevel degenerative spondylosis most significantly affecting the L3-L4 and L2-L3 levels and to a lesser degree L4-L5 levels. 03/22 Thoracic spine MRI- moderate to fairly significant degenerative spondylosis of the cervical spine seen on the sagittal counting sequence with the moderate canal stenosis as well as a cord compression most significant at at the C4-C5 and C5-C6 levels. Neurologist Dr Wilson consulted- help appreciated. Started patient on Plavix 75mg PO daily Gabapentin increased to 400mg PO BID Solumedrol 40mg IV q12h LE dopplers negative for DVT Consulted Dr Olsen (back specialist) for evaluation of MRI and recommendation , help appreciated Subacute CVA 03/22 Brain MRI- Acute/subacute infarct changes are felt be present within the mid diana. Neurologist Dr Wilson on board, started patient on Plavix 75mg PO daily on 03/23 Start Crestor 20mg PO HS f/u lipid panel and HgA1C Thrombocytopenia Immunosuppression and immune mediated suspected Element of sepsis Will continue to monitor Anemia of chronic disease Hgb declined to 7.6 today, will transfuse 1u pRBCs today s/p 2U PRBC transfusion Consulted Dr Daley (heme/onc)- help appreciated direct kimo negative low retic index; hypoproliferative erythroid response unlikely acute hemolysis immunosuppression contribution on marrow Hx Lupus Was taking home meds leflunomide and hydroxychloroquine, held on admission May be contributing to patient's neuropathic pain Consulted Dr Puckett- will f/u recommendations Prophylactic measures Contraindication for SCDs due to pain Contraindication for anticoagulation due to thrombocytopenia Protonix 40mg PO daily Management per Dr Pillai
[2017-03-23] MEDS: MethylPREDNISolone 40 mg Vial IVP SCH ×2 (09:37→21:03)
[2017-03-23 11:20] LABS: RNP >8.0 AI (<1.0)
--- NOTE | 2017-03-23 12:03 | PN ---
DATE: 03/23/2017. 03/23/2017 NEUROLOGICAL PROBLEM: Leg weakness and neuropathy. PHYSICAL EXAMINATION: VITAL SIGNS: Blood pressure 113/68, mean artery pressure of 83, respiratory rate 18, temperature 97.5 with pulse rate 89. GENERAL: The patient is more awake, alert, and oriented to person, place, and time. NEUROLOGIC: Cranial nerve examination is normal. Upper extremities are normal. Lower extremities are edematous with allodynia. Deep tendon reflexes are absent in both lower extremities. WORKUP: Neurologic examination, which is unchanged to compare with my previous exam. MRI of the brain which she reported as [id number] process of infarct in the mid pontine region. However, the patient does not show any clinical picture suggestive of ischemic process affecting pontine region. This could be artifactual. Considering her abnormal MRI of the brain, I prefer her to be on antiplatelet for stroke prophylaxis and further workup, including echocardiogram and carotid Doppler is recommended. For the pain control, gabapentin dose can be increased to 400 mg twice a day. The patient will be followed closely with you. Andres Wilson MD
--- NOTE | 2017-03-23 17:25 | CP.PCM.PN ---
Subjective - Date & Time of Evaluation Date of Evaluation: 03/23/17 Time of Evaluation: 09:00 - Subjective Subjective: awake alert less pain NAD afebrile Objective - Vital Signs/Intake and Output Vital Signs (last 24 hours): Temp Pulse Resp BP Pulse Ox 98.7 F 88 20 116/65 99 03/23/17 13:41 03/23/17 13:41 03/23/17 13:41 03/23/17 13:41 03/23/17 04:00 Intake and Output: 03/23/17 03/23/17 06:59 18:59 Intake Total 2080 800 Output Total 700 Balance 1380 800 - Medications Medications: Current Medications Clopidogrel Bisulfate (Plavix) 75 mg PO DAILY [facility] Last Admin: 03/23/17 09:37 Dose: 75 mg Famotidine (Pepcid) 20 mg PO BID [facility] Last Admin: 03/23/17 09:38 Dose: 20 mg Gabapentin (Neurontin) 400 mg PO BID [facility] Last Admin: 03/23/17 09:44 Dose: 400 mg Aztreonam 2 gm/ Sodium (Chloride) 100 mls @ 200 mls/hr IVPB Q8H [facility] Last Admin: 03/23/17 12:00 Dose: 200 mls/hr Vancomycin/Sodium Chloride (Vancomycin 1 Gm/Ns 200 Ml) 1 gm in 200 mls @ 133 mls/hr IVPB Q12H [facility] Stop: 03/25/17 15:31 Last Admin: 03/23/17 15:01 Dose: 133 mls/hr Methylprednisolone (Solu-Medrol) 40 mg IVP Q12 [facility] Last Admin: 03/23/17 09:37 Dose: 40 mg Ondansetron HCl (Zofran Inj) 4 mg IVP Q6H PRN PRN Reason: Nausea/Vomiting Last Admin: 03/20/17 15:01 Dose: 4 mg Rosuvastatin Calcium (Crestor) 20 mg PO HS [facility] Vitamin A (Vitamin A & D Oint Ud Foilpak) 0.5 ea TOP Q4 [facility] Last Admin: 03/23/17 12:00 Dose: 0.5 ea - Labs Labs: 03/23/17 06:16 03/23/17 06:16 PT 16.2 SECONDS (9.7-12.2) H 03/20/17 04:08 INR 1.4 03/20/17 04:08 APTT 38 SECONDS (21-34) H D 03/20/17 04:08 - Constitutional Appears: Non-toxic, Cachectic, Chronically Ill - Head Exam Head Exam: NORMOCEPHALIC - Eye Exam Eye Exam: PERRL. absent: Scleral icterus - ENT Exam ENT Exam: Mucous Membranes Dry - Neck Exam Neck Exam: absent: Lymphadenopathy - Respiratory Exam Respiratory Exam: Decreased Breath Sounds - Cardiovascular Exam Cardiovascular Exam: REGULAR RHYTHM - GI/Abdominal Exam GI & Abdominal Exam: Distended, Soft - Rectal Exam Rectal Exam: Deferred - Exam Exam: NORMAL INSPECTION - Extremities Exam Extremities Exam: absent: Pedal Edema - Back Exam Back Exam: absent: CVA tenderness (L), CVA tenderness (R) - Neurological Exam Neurological Exam: Alert, Awake - Psychiatric Exam Psychiatric exam: Normal Mood - Skin Skin Exam: Dry Assessment and Plan (1) Anemia Status: Acute (2) CHF (congestive heart failure) Status: Acute (3) Coagulopathy Status: Acute (4) Fever Status: Acute (5) Hypoglycemia Status: Acute (6) Leg pain, bilateral Status: Acute (7) Sepsis Status: Acute (8) Thrombocytopenia Status: Acute
[2017-03-23] MEDS: Aztreonam 1 GM in Sodium Chloride 0.9% 100 ML IVPB SCH (18:20)
[2017-03-23] MEDS: Sodium Chloride 0.9% 1,000 ML IV SCH (18:21)
--- NOTE | 2017-03-23 21:27 | CP.PCM.PN ---
Subjective - Date & Time of Evaluation Date of Evaluation: 03/23/17 Time of Evaluation: 17:20 - Subjective Subjective: Feeling better has pain in legs Objective - Vital Signs/Intake and Output Vital Signs (last 24 hours): Temp Pulse Resp BP Pulse Ox 98.7 F 88 20 116/65 99 03/23/17 13:41 03/23/17 13:41 03/23/17 13:41 03/23/17 13:41 03/23/17 04:00 Intake and Output: 03/23/17 03/24/17 18:59 06:59 Intake Total 1300 Output Total 900 Balance 400 - Medications Medications: Current Medications Clopidogrel Bisulfate (Plavix) 75 mg PO DAILY [facility] Last Admin: 03/23/17 09:37 Dose: 75 mg Famotidine (Pepcid) 20 mg PO BID [facility] Last Admin: 03/23/17 17:42 Dose: 20 mg Gabapentin (Neurontin) 400 mg PO BID [facility] Last Admin: 03/23/17 17:42 Dose: 400 mg Aztreonam 1 gm/ Sodium (Chloride) 100 mls @ 200 mls/hr IVPB Q8H [facility] Last Admin: 03/23/17 18:20 Dose: 200 mls/hr Methylprednisolone (Solu-Medrol) 40 mg IVP Q12 [facility] Last Admin: 03/23/17 21:03 Dose: 40 mg Ondansetron HCl (Zofran Inj) 4 mg IVP Q6H PRN PRN Reason: Nausea/Vomiting Last Admin: 03/20/17 15:01 Dose: 4 mg Rosuvastatin Calcium (Crestor) 20 mg PO HS [facility] Last Admin: 03/23/17 21:03 Dose: 20 mg Vitamin A (Vitamin A & D Oint Ud Foilpak) 0.5 ea TOP Q4 [facility] Last Admin: 03/23/17 21:02 Dose: 0.5 ea - Labs Labs: 03/23/17 06:16 03/23/17 06:16 PT 16.2 SECONDS (9.7-12.2) H 03/20/17 04:08 INR 1.4 03/20/17 04:08 APTT 38 SECONDS (21-34) H D 03/20/17 04:08 - Head Exam Head Exam: ATRAUMATIC - Eye Exam Eye Exam: Normal appearance - ENT Exam ENT Exam: Mucous Membranes Dry - Respiratory Exam Respiratory Exam: NORMAL BREATHING PATTERN - Cardiovascular Exam Cardiovascular Exam: +S1, +S2 - GI/Abdominal Exam GI & Abdominal Exam: Normal Bowel Sounds Assessment and Plan (1) Thrombocytopenia Assessment & Plan: immunosuppression and immune mediated suspected element of sepsis slightly improved on steroids if counts do not rebound, will need bone marrow evaluation Status: Acute (2) Anemia Assessment & Plan: s/p 2U PRBC direct kimo negative low retic index; hypoproliferative erythroid response unlikely acute hemolysis anemia of chronic disease immunosuppression contribution on marrow if counts do not rebound, may need bone marrow evaluation Status: Acute (3) Coagulopathy Assessment & Plan: nutritional Status: Acute
[2017-03-24] MEDS: Vitamins A & D Oint UD Foilpak TOP SCH ×6 (00:54→22:07)
[2017-03-24] MEDS: Aztreonam 1 GM in Sodium Chloride 0.9% 100 ML IVPB SCH ×3 (00:55→18:18)
[2017-03-24 05:41] LABS: CARDIOLIPIN AB (IGA) <11 APL (<=11); CARDIOLIPIN AB (IGG) <14 GPL (<=14)
[2017-03-24 06:18] LABS: B2 GLYCOPROTEIN I AB(IGA) 10 SAU (<=20); B2 GLYCOPROTEIN I AB(IGG) <9 SGU (<=20); B2 GLYCOPROTEIN I AB(IGM) <9 SMU (<=20)
[2017-03-24 06:31] LABS: MEAN CELL VOLUME 88.3 fL (81.0-99.0); MEAN CORPUSCULAR HEMOGLOBIN 28.4 pg (27.0-31.0); MEAN CORPUSCULAR HGB CONC 32.1 g/dL (33.0-37.0); MEAN PLATELET VOLUME 8.8 fL (7.2-11.7); RBC 3.17 Mil/uL (3.80-5.20); RED CELL DISTRIBUTION WIDTH 19.6 % (11.5-14.5); WHITE BLOOD COUNT 7.2 K/uL (4.8-10.8)
[2017-03-24 06:43] LABS: BLOOD UREA NITROGEN 18 mg/dL (7-17); CALCIUM 7.3 mg/dl (8.6-10.4); GFR AFRICAN-AMERICAN > 60; GFR NON-AFRICAN AMERICAN > 60; HDL CHOLESTEROL 15 mg/dL (30-70)
[2017-03-24 06:53] LABS: LDL CHOLESTEROL 85 mg/dL (0-129)
[2017-03-24 07:09] LABS: PHOSPHATIDYLSERINE AB IGA <20 U/mL (<20); PHOSPHATIDYLSERINE AB IGG <10 U/mL (<10); PHOSPHATIDYLSERINE AB IGM <25 U/mL (<25)
[2017-03-24 07:27] LABS: CARDIOLIPIN AB (IGM) <12 MPL (<=12)
--- NOTE | 2017-03-24 08:13 | CON ---
DATE: 03/23/2017 REASON FOR CONSULTATION: Numbness in both legs. HISTORY OF PRESENT ILLNESS: The patient is a 61-year-old young woman, who was admitted 3 days ago with fever, sepsis and severe dehydration. She had significant edema of both lower legs, from the knees to the ankles. Then she took diuretics as prescribed and they dehydrated her, but did not really do anything to lessen the swelling in her lower extremities. Evidently the swelling occurred over the past few weeks with no knowledge of an etiology. PAST MEDICAL HISTORY: Significant for lupus and possibly rheumatoid arthritis. She has hypertension and a history of congestive heart failure. She does not report any bowel or bladder incontinence. She states she has never had any issues with back pain. She denied any problems with her upper legs, strictly from the knees to the ankles. MEDICATIONS: Are as listed on the chart. ALLERGIES: PENICILLIN and SULFA ANTIBIOTICS. SURGICAL HISTORY: No past surgical history. PHYSICAL EXAMINATION EXTREMITIES: On examination, her legs are markedly swollen and edematous from the knees to the ankles. Her sensation is decreased to light touch just over the areas that are swollen. She has perfectly intact sensation above the knee as well as in the upper extremities. She has good motion of the ankles and toes. Her strength of her anterior tibialis and EHL as well as her inverters is completely intact. Due to the swelling, it is difficult to palpate distal pulses. No clonus is present. Babinski shows toes downgoing. IMAGING: She had an MRI done of her lumbar spine on 03/22/2017. It shows minimal grade 1 spondylolisthesis of L4 and L5. She has severe stenosis at the L3-L4 level above that. Some foraminal narrowing, more on the right than the left at L2-L3. The axial cut through L3-L4 is not directly parallel to the disk space, but again appears to show more foraminal narrowing on the right side than the left with significant lateral recess stenosis. The L4-L5 level shows some foraminal narrowing, looks it may be a little worse on the left than the right, but no significant central stenosis. She has facet hypertrophy throughout all the lumbar spine. L5-S1 level looks fairly open and that one disc remains fairly well hydrated compared to the L2-L3, L3-L4, L4-L5 discs. IMPRESSION: Spinal stenosis with just a very minimal spondylolisthesis at L4 and L5. Where her minimal slippage is, there is even a worse stenotic area, which is at the level above that. That notwithstanding, I think her sensory disturbance is either due to her significant peripheral edema or perhaps some type of peripheral neuropathy related to her lupus. Certainly, with just the sensory part being involved and the motor part being completely intact, it does not fit the picture we are seeing of the MRI of stenosis and she has no reports of ambulation difficulties prior to this although the family members state that her overall tolerance of things is getting little less and they were not sure if that was just a part of the lupus or her working or stressor, etc. I left my card, but for now if ambulation became an issue down the line, then we could consider a trial of 1 or 2 epidural injections or even a lumbar laminectomy to decompress the area if nothing else worked. However, for now, with her open wounds in the back which were not inspected on today's exam and the significant peripheral edema, her anemia, her overall sepsis, etc., certainly there is no indication whatsoever for any surgical intervention on her lumbar spine as I do not feel that is the cause of her current complaints. Thank you for allowing me to participate in the care of your patient. Per Olsen MD
[2017-03-24] MEDS: MethylPREDNISolone 40 mg Vial IVP SCH ×2 (09:33→22:07)
--- NOTE | 2017-03-24 09:50 | EEG ---
DATE: 03/21/2017 This is a 16-channel electroencephalogram of awake and drowsy adult. During the study, photic stimulation was performed. Hyperventilation was not performed. The resting electroencephalogram consists of 30 to 50 microvolts alpha activities (9 to 11 Hz) seen at parietal and occipital leads. Anteriorly, fast activity superimposed with 2 to 3 Hz of delta activities seen. Intermittent 2 to 3 Hz of delta activities seen in frontal and central leads. The photic stimulation did not evoke driving response noted at 2 to 20 Hz. IMPRESSION: This is a normal electroencephalogram of an awake and drowsy adult. During the study, neither electroencephalographic paroxysmal activities nor focal slowing noted. Andres Wilson MD
--- NOTE | 2017-03-24 10:31 | PN ---
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 PHYSICAL EXAMINATION: VITAL SIGNS: Blood pressure 120/71, mean artery pressure of 83, respiratory rate 18, temperature 98.2. NEUROLOGIC: The patient is more awake, alert, and oriented to person, place, and time. Mentation is normal. Upper extremities are normal. Lower extremities, again hyperesthesia with decreased deep tendon reflexes and distal muscle group atrophy noted. These are all consistent with neuropathy. The patient seems to be improved with increasing dose of gabapentin 400 mg twice day. LABORATORY DATA: The patient did have workup for collagen vascular disease suggestive of SSA, SSB positive with [employer] antibodies more than 8. Hypercoagulable state including antiphospholipid antibodies, anticardiolipin antibodies are negative. ASSESSMENT AND PLAN: Continue the present management. The patient should be get out of the bed and physical therapy should be initiated. Andres Wilson MD
--- NOTE | 2017-03-24 10:50 | CP.PCM.PN ---
Subjective - Date & Time of Evaluation Date of Evaluation: 03/24/17 Time of Evaluation: 10:47 - Subjective Subjective: Medicine Progress Note Patient seen and examined. Patient is in a positive mood this morning and states that her pain has improved today. Per patient, the pain in her legs today does not feel sharp and stabbing like it did yesterday. The patient also states that her appetite has increased and she would like to eat more fruit today. She denies fever, chills, nausea, vomiting, diarrhea, abdominal pain, chest pain, shortness of breath, and headache. Objective - Vital Signs/Intake and Output Vital Signs (last 24 hours): Temp Pulse Resp BP Pulse Ox 97.7 F 88 16 135/93 H 100 03/24/17 08:00 03/24/17 10:00 03/24/17 08:00 03/24/17 08:00 03/24/17 08:00 Intake and Output: 03/24/17 03/24/17 06:59 18:59 Intake Total 1800 Output Total 1500 Balance 300 - Medications Medications: Current Medications Clopidogrel Bisulfate (Plavix) 75 mg PO DAILY [facility] Last Admin: 03/24/17 09:33 Dose: 75 mg Famotidine (Pepcid) 20 mg PO BID [facility] Last Admin: 03/24/17 09:33 Dose: 20 mg Gabapentin (Neurontin) 400 mg PO BID [facility] Last Admin: 03/24/17 09:33 Dose: 400 mg Aztreonam 1 gm/ Sodium (Chloride) 100 mls @ 200 mls/hr IVPB Q8H [facility] Last Admin: 03/24/17 09:33 Dose: 200 mls/hr Methylprednisolone (Solu-Medrol) 40 mg IVP Q12 [facility] Last Admin: 03/24/17 09:33 Dose: 40 mg Ondansetron HCl (Zofran Inj) 4 mg IVP Q6H PRN PRN Reason: Nausea/Vomiting Last Admin: 03/20/17 15:01 Dose: 4 mg Rosuvastatin Calcium (Crestor) 20 mg PO HS [facility] Last Admin: 03/23/17 21:03 Dose: 20 mg Vitamin A (Vitamin A & D Oint Ud Foilpak) 0.5 ea TOP Q4 [facility] Last Admin: 03/24/17 08:37 Dose: 0.5 ea - Labs Labs: 03/24/17 06:18 03/24/17 06:18 PT 16.2 SECONDS (9.7-12.2) H 03/20/17 04:08 INR 1.4 03/20/17 04:08 APTT 38 SECONDS (21-34) H D 03/20/17 04:08 - Constitutional Appears: Non-toxic, No Acute Distress - Head Exam Head Exam: ATRAUMATIC, NORMOCEPHALIC - Eye Exam Eye Exam: EOMI, Normal appearance - ENT Exam ENT Exam: Mucous Membranes Moist, Normal Exam - Neck Exam Neck Exam: Normal Inspection - Respiratory Exam Respiratory Exam: Clear to Ausculation Bilateral, NORMAL BREATHING PATTERN. absent: Rhonchi, Wheezes, Respiratory Distress - Cardiovascular Exam Cardiovascular Exam: REGULAR RHYTHM, +S1, +S2. absent: Murmur - GI/Abdominal Exam GI & Abdominal Exam: Soft, Normal Bowel Sounds - Extremities Exam Extremities Exam: absent: Joint Swelling, Pedal Edema Additional comments: pain to lower extremities with light touch - Neurological Exam Neurological Exam: Alert, Awake, Oriented x3 - Psychiatric Exam Psychiatric exam: Normal Affect, Normal Mood - Skin Skin Exam: Dry, Warm Assessment and Plan - Assessment and Plan (Free Text) Assessment: Sepsis, resolved Likely secondary to infection of wounds- wound care on board, help appreciated Fever on admission with lactate 5.2, admitted to ICU Afebrile since 03/20, no leukocytosis Blood culture negative x 3 days Urine culture positive for gram + cocci ID Dr Bolanos consulted- help appreciated Aztreonam 2gm IV q8h started on 03/20 Vanco 1gm IV q12h started on 03/20 ECHO- LV EF 75%, normal systolic function Painful Sensoromotor Neuropathy 03/22 Lumbar spine MRI- Multilevel degenerative spondylosis most significantly affecting the L3-L4 and L2-L3 levels and to a lesser degree L4-L5 levels. 03/22 Thoracic spine MRI- moderate to fairly significant degenerative spondylosis of the cervical spine seen on the sagittal counting sequence with the moderate canal stenosis as well as a cord compression most significant at at the C4-C5 and C5-C6 levels. Neurologist Dr Wilson consulted- help appreciated. Started patient on Plavix 75mg PO daily Gabapentin increased to 400mg PO BID Solumedrol 40mg IV q12h LE dopplers negative for DVT Consulted Dr Olsen (back specialist) for evaluation of MRI and recommendation , help appreciated- Dr Olsen saw and examined patient. No acute surgical intervention at this time. Abnormal Brain MRI- Subacute CVA 03/22 Brain MRI- Acute/subacute infarct changes are felt be present within the mid diana. Neurologist Dr Wilson on board, started patient on Plavix 75mg PO daily on 03/23 Crestor 20mg PO HS Cholesterol 132 Triglycerides 132 HDL 15 LDL 85 HgA1C 4.7 Thrombocytopenia Immunosuppression and immune mediated suspected Element of sepsis Dr Daley (heme) consulted- suggests possible bone marrow biopsy in future if does not improve Will continue to monitor Anemia of chronic disease 03/24: Hgb 9.0 after 1u pRBCs transfused yesterday 03/23: Hgb declined to 7.6 today, will transfuse 1u pRBCs today s/p total 3u pRBC transfusion Consulted Dr Daley (heme/onc)- help appreciated direct kimo negative low retic index; hypoproliferative erythroid response unlikely acute hemolysis immunosuppression contribution on marrow Hx Lupus Was taking home meds leflunomide and hydroxychloroquine, held on admission May be contributing to patient's neuropathic pain Consulted Dr Puckett- will f/u recommendations Prophylactic measures Contraindication for SCDs due to pain Contraindication for anticoagulation due to thrombocytopenia Protonix 40mg PO daily PICC line ordered Management per Dr Pillai
--- NOTE | 2017-03-24 21:59 | CP.PCM.PN ---
Subjective - Date & Time of Evaluation Date of Evaluation: 03/24/17 Time of Evaluation: 18:05 - Subjective Subjective: Feeling better overall Objective - Vital Signs/Intake and Output Vital Signs (last 24 hours): Temp Pulse Resp BP Pulse Ox 98.6 F 102 H 20 118/77 99 03/24/17 16:00 03/24/17 16:00 03/24/17 16:00 03/24/17 16:00 03/24/17 16:00 Intake and Output: 03/24/17 03/25/17 18:59 06:59 Intake Total 2160 Output Total 1900 Balance 260 - Medications Medications: Current Medications Clopidogrel Bisulfate (Plavix) 75 mg PO DAILY [facility] Last Admin: 03/24/17 09:33 Dose: 75 mg Famotidine (Pepcid) 20 mg PO BID [facility] Last Admin: 03/24/17 18:19 Dose: 20 mg Gabapentin (Neurontin) 400 mg PO BID [facility] Last Admin: 03/24/17 09:33 Dose: 400 mg Aztreonam 1 gm/ Sodium (Chloride) 100 mls @ 200 mls/hr IVPB Q8H [facility] Last Admin: 03/24/17 18:18 Dose: 200 mls/hr Methylprednisolone (Solu-Medrol) 40 mg IVP Q12 [facility] Last Admin: 03/24/17 09:33 Dose: 40 mg Ondansetron HCl (Zofran Inj) 4 mg IVP Q6H PRN PRN Reason: Nausea/Vomiting Last Admin: 03/20/17 15:01 Dose: 4 mg Rosuvastatin Calcium (Crestor) 20 mg PO HS [facility] Last Admin: 03/23/17 21:03 Dose: 20 mg Vitamin A (Vitamin A & D Oint Ud Foilpak) 0.5 ea TOP Q4 [facility] Last Admin: 03/24/17 18:18 Dose: 0.5 ea - Labs Labs: 03/24/17 06:18 03/24/17 06:18 PT 16.2 SECONDS (9.7-12.2) H 03/20/17 04:08 INR 1.4 03/20/17 04:08 APTT 38 SECONDS (21-34) H D 03/20/17 04:08 - Head Exam Head Exam: ATRAUMATIC - Eye Exam Eye Exam: Normal appearance - ENT Exam ENT Exam: Mucous Membranes Dry - Respiratory Exam Respiratory Exam: NORMAL BREATHING PATTERN - Cardiovascular Exam Cardiovascular Exam: +S1, +S2 - GI/Abdominal Exam GI & Abdominal Exam: Normal Bowel Sounds Assessment and Plan (1) Thrombocytopenia Assessment & Plan: immunosuppression and immune mediated suspected element of sepsis slightly improved on steroids if counts do not rebound, will need bone marrow evaluation Status: Acute (2) Anemia Assessment & Plan: s/p 2U PRBC direct kimo negative low retic index; hypoproliferative erythroid response unlikely acute hemolysis anemia of chronic disease immunosuppression contribution on marrow if counts do not rebound, may need bone marrow evaluation Status: Acute (3) Coagulopathy Assessment & Plan: nutritional Status: Acute
[2017-03-25] MEDS: Vitamins A & D Oint UD Foilpak TOP SCH ×6 (00:22→21:36)
[2017-03-25] MEDS: Aztreonam 1 GM in Sodium Chloride 0.9% 100 ML IVPB SCH ×2 (01:11→10:35)
[2017-03-25] MEDS: MethylPREDNISolone 40 mg Vial IVP SCH ×2 (10:36→21:32)
--- NOTE | 2017-03-25 21:05 | CP.PCM.PN ---
Subjective - Date & Time of Evaluation Date of Evaluation: 03/25/17 Time of Evaluation: 18:00 - Subjective Subjective: Feeling better Objective - Vital Signs/Intake and Output Vital Signs (last 24 hours): Temp Pulse Resp BP Pulse Ox 98.2 F 100 H 20 133/86 99 03/25/17 15:10 03/25/17 18:00 03/25/17 15:10 03/25/17 15:10 03/25/17 15:10 Intake and Output: 03/25/17 03/26/17 18:59 06:59 Intake Total 820 Balance 820 - Medications Medications: Current Medications Clopidogrel Bisulfate (Plavix) 75 mg PO DAILY [facility] Last Admin: 03/25/17 10:36 Dose: 75 mg Famotidine (Pepcid) 20 mg PO BID [facility] Last Admin: 03/25/17 17:00 Dose: 20 mg Gabapentin (Neurontin) 400 mg PO BID [facility] Last Admin: 03/25/17 17:00 Dose: 400 mg Aztreonam 1 gm/ Dextrose 50 mls @ 100 mls/hr IVPB Q8H [facility] Methylprednisolone (Solu-Medrol) 40 mg IVP Q12 [facility] Last Admin: 03/25/17 10:36 Dose: 40 mg Ondansetron HCl (Zofran Inj) 4 mg IVP Q6H PRN PRN Reason: Nausea/Vomiting Last Admin: 03/20/17 15:01 Dose: 4 mg Rosuvastatin Calcium (Crestor) 20 mg PO HS [facility] Last Admin: 03/24/17 22:07 Dose: 20 mg Vitamin A (Vitamin A & D Oint Ud Foilpak) 0.5 ea TOP Q4 [facility] Last Admin: 03/25/17 17:00 Dose: 0.5 ea - Labs Labs: 03/24/17 06:18 03/24/17 06:18 PT 16.2 SECONDS (9.7-12.2) H 03/20/17 04:08 INR 1.4 03/20/17 04:08 APTT 38 SECONDS (21-34) H D 03/20/17 04:08 - Head Exam Head Exam: ATRAUMATIC - Eye Exam Eye Exam: Normal appearance - ENT Exam ENT Exam: Mucous Membranes Dry - Respiratory Exam Respiratory Exam: NORMAL BREATHING PATTERN - Cardiovascular Exam Cardiovascular Exam: +S1, +S2 - GI/Abdominal Exam GI & Abdominal Exam: Normal Bowel Sounds Assessment and Plan (1) Thrombocytopenia Assessment & Plan: immunosuppression and immune mediated suspected element of sepsis slightly improved on steroids if counts do not rebound, will need bone marrow evaluation Status: Acute (2) Anemia Assessment & Plan: s/p 2U PRBC direct kimo negative low retic index; hypoproliferative erythroid response unlikely acute hemolysis anemia of chronic disease immunosuppression contribution on marrow if counts do not rebound, may need bone marrow evaluation Status: Acute (3) Coagulopathy Assessment & Plan: nurtitional Status: Acute
[2017-03-26] MEDS: Vitamins A & D Oint UD Foilpak TOP SCH ×6 (00:39→22:34)
[2017-03-26 06:46] LABS: BASO % 0.2 % (0.0-2.0); HEMOGLOBIN 9.4 g/dL (11.0-16.0); LYMPH # 0.5 K/uL (1.0-4.3); LYMPH % 6.2 % (20.0-40.0); MEAN CELL VOLUME 89.1 fL (81.0-99.0); MEAN CORPUSCULAR HGB CONC 32.6 g/dL (33.0-37.0); MEAN PLATELET VOLUME 9.8 fL (7.2-11.7); MONO # 1.7 K/uL (0.0-0.8); MONO % 19.1 % (0.0-10.0); NEUT # 6.5 K/uL (1.8-7.0); NEUT % 74.5 % (50.0-75.0); PLATELET COUNT 32 K/uL (130-400); RBC 3.23 Mil/uL (3.80-5.20); RED CELL DISTRIBUTION WIDTH 19.4 % (11.5-14.5); WHITE BLOOD COUNT 8.7 K/uL (4.8-10.8)
[2017-03-26 08:42] LABS: ANISOCYTOSIS MODERATE; BANDS 2 % (0-2); LYMPHOCYTE 5 % (20-40); MONOCYTE 13 % (0-10); NEUTROPHIL 80 % (50-75); PLATELET ESTIMATE DECREASED (NORMAL); TOTAL CELLS COUNTED 100
[2017-03-26] MEDS: MethylPREDNISolone 40 mg Vial IVP SCH ×2 (09:44→22:34)
--- NOTE | 2017-03-26 13:14 | CP.PCM.CON ---
History of Present Illness - History of Present Illness History of Present Illness: 61 year old female with previously diagnosed lupus, who comes to the [facility] ER complaining of edema of the legs, elevated fever, elevated BUN, elevated lactic acid and generalized malaise. Patient was started on antibiotics and IV steroids. Ms Awad is slowly improving. We have received the results of previously requested Lupus panel done at an outside lab reveals WBC' s of 8700, Hgb 9.4, SSA>8, SSB positive, DRE positive with a titer of 1/320, [employer] 8, and a sedimentation rate of 56. Cardiolipin IgG and IgM pending. At this point, suggest patient be started on Predisone 60mg daily. Slowly magdi IV steroids. The patient should also go back on plaquenil, however she first needs a visual graves exam. Ms Awad has not had a visual graves exam in more than 15 months. Iwould not suggest using Leflunomide. Review of Systems - Constitutional Constitutional: Fatigue - EENT Nose/Mouth/Throat: Sinus Pain - Cardiovascular Cardiovascular: Leg Edema - Respiratory Respiratory: Dyspnea - Reproductive: Female Reproductive:Female: Menopausal - Musculoskeletal Musculoskeletal: Arthralgias - Integumentary Integumentary: Dry Skin - Neurological Neurological: Headaches, Memory Loss - Psychiatric Psychiatric: Depression Past Patient History - Past Medical History & Family History Past Medical History?: Yes - Past Social History Smoking Status: Former Smoker Chewing Tobacco Use: No Cigar Use: No Alcohol: None Drugs: Denies Home Situation {Lives}: With Family Domestic Violence: Negative - CARDIAC Hx Cardiac Disorders: Yes Hx Congestive Heart Failure: Yes Hx Hypertension: Yes - PULMONARY Hx Respiratory Disorders: No - NEUROLOGICAL Hx Neurological Disorder: No - HEENT Hx HEENT Problems: No - RENAL Hx Chronic Kidney Disease: No - ENDOCRINE/METABOLIC Hx Endocrine Disorders: Yes Hx Systemic Lupus Erythematosus: Yes - HEMATOLOGICAL/ONCOLOGICAL Hx Blood Disorders: No - INTEGUMENTARY Hx Dermatological Problems: Yes Other/Comment: multiple open wound bilateral buttocks and right thigh - MUSCULOSKELETAL/RHEUMATOLOGICAL Hx Musculoskeletal Disorders: Yes Hx Arthritis: Yes Hx Falls: Yes Hx Rheumatoid Arthritis: Yes - GASTROINTESTINAL Hx Gastrointestinal Disorders: No - GENITOURINARY/GYNECOLOGICAL Hx Genitourinary Disorders: No - PSYCHIATRIC Hx Psychophysiologic Disorder: No Hx Substance Use: No - SURGICAL HISTORY Hx Surgeries: No - ANESTHESIA Hx Anesthesia: No Meds Allergies/Adverse Reactions: Allergies Allergy/AdvReac Type Severity Reaction Status Date / Time Penicillins Allergy Verified 03/19/17 23:45 Sulfa (Sulfonamide Allergy Verified 03/19/17 23:45 Antibiotics) - Medications Medications: Current Medications Clopidogrel Bisulfate (Plavix) 75 mg PO DAILY [facility] Last Admin: 03/26/17 09:44 Dose: 75 mg Famotidine (Pepcid) 20 mg PO BID [facility] Last Admin: 03/26/17 09:45 Dose: 20 mg Gabapentin (Neurontin) 400 mg PO BID [facility] Last Admin: 03/26/17 09:45 Dose: 400 mg Aztreonam 1 gm/ Dextrose 50 mls @ 100 mls/hr IVPB Q8H [facility] Last Admin: 03/26/17 09:45 Dose: 100 mls/hr Methylprednisolone (Solu-Medrol) 40 mg IVP Q12 [facility] Last Admin: 03/26/17 09:44 Dose: 40 mg Ondansetron HCl (Zofran Inj) 4 mg IVP Q6H PRN PRN Reason: Nausea/Vomiting Last Admin: 03/20/17 15:01 Dose: 4 mg Rosuvastatin Calcium (Crestor) 20 mg PO HS [facility] Last Admin: 03/25/17 21:33 Dose: 20 mg Vitamin A (Vitamin A & D Oint Ud Foilpak) 0.5 ea TOP Q4 [facility] Last Admin: 03/26/17 09:46 Dose: 0.5 ea Physical Exam - Constitutional Appears: Chronically Ill - Head Exam Head Exam: NORMOCEPHALIC - Eye Exam Eye Exam: Normal appearance Pupil Exam: NORMAL ACCOMODATION - ENT Exam ENT Exam: Mucous Membranes Dry - Neck Exam Neck exam: Positive for: Normal Inspection - Respiratory Exam Respiratory Exam: Decreased Breath Sounds - Cardiovascular Exam Cardiovascular Exam: REGULAR RHYTHM - GI/Abdominal Exam GI & Abdominal Exam: Hyperactive Bowel Sounds - Rectal Exam Rectal Exam: Deferred - Exam External exam: NORMAL EXTERNAL EXAM - Extremities Exam Extremities exam: Positive for: pedal edema - Back Exam Back exam: NORMAL INSPECTION - Neurological Exam Neurological exam: Oriented x3 - Psychiatric Exam Psychiatric exam: Depressed - Skin Skin Exam: Dry Results - Vital Signs Recent Vital Signs: Last Vital Signs Temp 97.9 F 03/26/17 08:50 Pulse 100 H 03/26/17 08:50 Resp 20 03/26/17 08:50 BP 113/76 03/26/17 08:50 Pulse Ox 99 03/26/17 08:50 - Labs Result Diagrams: 03/26/17 06:43 03/24/17 06:18 Labs: Laboratory Results - last 24 hr 03/26/17 06:43 WBC 8.7 RBC 3.23 L Hgb 9.4 L Hct 28.8 L MCV 89.1 MCH 29.0 MCHC 32.6 L RDW 19.4 H Plt Count 32 L MPV 9.8 Neut % (Auto) 74.5 Lymph % (Auto) 6.2 L [place] % (Auto) 19.1 H Eos % (Auto) 0.0 Baso % (Auto) 0.2 Neut # 6.5 Lymph # 0.5 L [place] # 1.7 H Eos # 0.0 Baso # 0.0 Neutrophils % (Manual) 80 H Band Neutrophils % 2 Lymphocytes % (Manual) 5 L Monocytes % (Manual) 13 H Platelet Estimate Decreased L Anisocytosis (manual) Moderate Assessment & Plan (1) Systemic lupus Status: Acute (2) Anemia Status: Acute (3) CHF (congestive heart failure) Status: Acute (4) Coagulopathy Status: Acute (5) Leg pain, bilateral Status: Acute
--- NOTE | 2017-03-26 14:42 | CP.PCM.PN ---
Subjective - Date & Time of Evaluation Date of Evaluation: 03/26/17 Time of Evaluation: 10:00 - Subjective Subjective: events noted dr santos note reviewed overal improved needs visual field exam Objective - Vital Signs/Intake and Output Vital Signs (last 24 hours): Temp Pulse Resp BP Pulse Ox 97.9 F 100 H 20 113/76 99 03/26/17 08:50 03/26/17 08:50 03/26/17 08:50 03/26/17 08:50 03/26/17 08:50 - Medications Medications: Current Medications Clopidogrel Bisulfate (Plavix) 75 mg PO DAILY [facility] Last Admin: 03/26/17 09:44 Dose: 75 mg Famotidine (Pepcid) 20 mg PO BID [facility] Last Admin: 03/26/17 09:45 Dose: 20 mg Gabapentin (Neurontin) 400 mg PO BID [facility] Last Admin: 03/26/17 09:45 Dose: 400 mg Aztreonam 1 gm/ Dextrose 50 mls @ 100 mls/hr IVPB Q8H [facility] Last Admin: 03/26/17 09:45 Dose: 100 mls/hr Methylprednisolone (Solu-Medrol) 40 mg IVP Q12 [facility] Last Admin: 03/26/17 09:44 Dose: 40 mg Ondansetron HCl (Zofran Inj) 4 mg IVP Q6H PRN PRN Reason: Nausea/Vomiting Last Admin: 03/20/17 15:01 Dose: 4 mg Rosuvastatin Calcium (Crestor) 20 mg PO HS [facility] Last Admin: 03/25/17 21:33 Dose: 20 mg Vitamin A (Vitamin A & D Oint Ud Foilpak) 0.5 ea TOP Q4 [facility] Last Admin: 03/26/17 09:46 Dose: 0.5 ea - Labs Labs: 03/26/17 06:43 03/24/17 06:18 PT 16.2 SECONDS (9.7-12.2) H 03/20/17 04:08 INR 1.4 03/20/17 04:08 APTT 38 SECONDS (21-34) H D 03/20/17 04:08 - Constitutional Appears: Non-toxic, Chronically Ill - Head Exam Head Exam: NORMOCEPHALIC - Eye Exam Eye Exam: PERRL - ENT Exam ENT Exam: Mucous Membranes Dry - Neck Exam Neck Exam: absent: Lymphadenopathy - Respiratory Exam Respiratory Exam: Decreased Breath Sounds - Cardiovascular Exam Cardiovascular Exam: REGULAR RHYTHM - GI/Abdominal Exam GI & Abdominal Exam: Distended, Soft Assessment and Plan (1) Anemia Status: Acute (2) CHF (congestive heart failure) Status: Acute (3) Coagulopathy Status: Acute (4) Fever Status: Acute (5) Hypoglycemia Status: Acute (6) Leg pain, bilateral Status: Acute (7) Sepsis Status: Acute (8) Thrombocytopenia Status: Acute
--- NOTE | 2017-03-26 15:29 | RAD ---
Cervical spine four views History: Degenerative disc disease. Comparison: None available. Findings: Left central venous catheter tip extending to the proximal right SVC. Patchy consolidative changes in both lungs; right greater left. Dens is intact. Limited evaluation of the cervical spine as the cervical spine is visualized from the C1 through C5 levels. The C6 and C7 vertebral body levels are not adequately visualized. Reversal of the normal cervical lordosis. Loss of height of the C4 and C5 vertebral body heights. Mild anterolisthesis of C3 on C4. Multilevel posterior disc osteophyte complexes at the C4-5 and C5-6 levels. Anterior osteophytosis at the C3 through C5 levels. Multilevel uncovertebral joint and facet hypertrophy. Impression: Incomplete evaluation of the cervical spine which is only visualized C1 through C5. Prominent degenerative changes. If pain persists, consider further evaluation with MRI.
--- NOTE | 2017-03-26 15:31 | RAD ---
Chest x-ray two views History: Effusion. Comparison: 03/20/2017 Findings: Left central venous catheter tip extending to the right SVC. Diffuse confluent patchy consolidative opacifications seen throughout both lungs. Small to moderate left pleural effusion. Cardiomegaly. Degenerative changes in the spine and shoulders. Impression: Diffuse confluent patchy consolidative opacifications seen throughout both lungs. Small to moderate left pleural effusion. Cardiomegaly.
[2017-03-27] MEDS: Vitamins A & D Oint UD Foilpak TOP SCH ×6 (00:44→21:00)
--- NOTE | 2017-03-27 07:51 | PN ---
DATE: 03/27/2017 NEUROLOGICAL PROBLEM: Painful sensorimotor neuropathy. PHYSICAL EXAMINATION: VITAL SIGNS: Blood pressure 120/73, mean arterial pressure of 88, respiratory rate 16, temperature 98.5. NEUROLOGIC: The patient is very comfortably lying down. The patient does not show any hypersensitivity to the touch as before. The patient moves her legs. Still persistent edema noted. Rest of the examinations were unchanged. RECOMMENDATION: Continue Neurontin as 400 mg twice a day with physical therapy and DVT prophylaxis. From neurological point of view, the patient is stable. If really needed neurological followup evaluation or change in neuro status, please do not hesitate to call me back. At present, I am signing off from followup. Andres Wilson MD
[2017-03-27] MEDS: MethylPREDNISolone 40 mg Vial IVP SCH ×2 (10:01→21:01)
--- NOTE | 2017-03-27 10:54 | CP.PCM.PN ---
Subjective - Date & Time of Evaluation Date of Evaluation: 03/27/17 Time of Evaluation: 08:00 - Subjective Subjective: Medicine Progress Note Patient seen and examined. Patient is in a positive mood this morning and states that her pain has improved today. Patient states she was able to eat her entire breakfast today and that her appetite has returned. She denies fever , chills, nausea, vomiting, diarrhea, abdominal pain, chest pain, shortness of breath, and headache. States that she is not able to walk but is working with PT. She is able to site on the side on the bed. Objective - Vital Signs/Intake and Output Vital Signs (last 24 hours): Temp Pulse Resp BP Pulse Ox 98.5 F 102 H 18 116/75 97 03/27/17 07:30 03/27/17 07:30 03/27/17 07:30 03/27/17 07:30 03/27/17 07:30 - Medications Medications: Current Medications Clopidogrel Bisulfate (Plavix) 75 mg PO DAILY [facility] Last Admin: 03/27/17 10:01 Dose: 75 mg Famotidine (Pepcid) 20 mg PO BID [facility] Last Admin: 03/27/17 10:01 Dose: 20 mg Gabapentin (Neurontin) 400 mg PO BID [facility] Last Admin: 03/27/17 10:01 Dose: 400 mg Aztreonam 1 gm/ Dextrose 50 mls @ 100 mls/hr IVPB Q8H [facility] Last Admin: 03/27/17 10:01 Dose: 100 mls/hr Methylprednisolone (Solu-Medrol) 40 mg IVP Q12 [facility] Last Admin: 03/27/17 10:01 Dose: 40 mg Ondansetron HCl (Zofran Inj) 4 mg IVP Q6H PRN PRN Reason: Nausea/Vomiting Last Admin: 03/20/17 15:01 Dose: 4 mg Rosuvastatin Calcium (Crestor) 20 mg PO HS [facility] Last Admin: 03/26/17 22:34 Dose: 20 mg Vitamin A (Vitamin A & D Oint Ud Foilpak) 0.5 ea TOP Q4 [facility] Last Admin: 03/27/17 10:00 Dose: 0.5 ea - Labs Labs: 03/26/17 06:43 03/24/17 06:18 PT 16.2 SECONDS (9.7-12.2) H 03/20/17 04:08 INR 1.4 03/20/17 04:08 APTT 38 SECONDS (21-34) H D 03/20/17 04:08 - Constitutional Appears: Non-toxic, No Acute Distress, Chronically Ill - Head Exam Head Exam: ATRAUMATIC, NORMAL INSPECTION - Eye Exam Eye Exam: EOMI - ENT Exam ENT Exam: Mucous Membranes Moist - Respiratory Exam Respiratory Exam: Clear to Ausculation Bilateral, NORMAL BREATHING PATTERN - Cardiovascular Exam Cardiovascular Exam: REGULAR RHYTHM, +S1, +S2 - GI/Abdominal Exam GI & Abdominal Exam: Soft, Normal Bowel Sounds. absent: Distended, Firm, Guarding, Tenderness - Extremities Exam Additional comments: tender to palpation with light touch, 4+ edema - Back Exam Back Exam: NORMAL INSPECTION - Neurological Exam Neurological Exam: Alert, Awake, Oriented x3 - Psychiatric Exam Psychiatric exam: Normal Affect, Normal Mood - Skin Skin Exam: Dry, Intact, Normal Color, Warm Assessment and Plan - Assessment and Plan (Free Text) Assessment: Sepsis, resolved Likely secondary to infection of wounds- wound care on board, help appreciated Fever on admission with lactate 5.2, admitted to ICU Afebrile since 03/20, no leukocytosis Blood culture negative x 3 days 03/20 - Urine culture positive for gram + cocci ID Dr Bolanos consulted- help appreciated Aztreonam 2gm IV q8h started on 03/20 Vanco 1gm IV q12h started on 03/20 ECHO- LV EF 75%, normal systolic function Painful Sensoromotor Neuropathy 03/22 Lumbar spine MRI- Multilevel degenerative spondylosis most significantly affecting the L3-L4 and L2-L3 levels and to a lesser degree L4-L5 levels. 03/22 Thoracic spine MRI- moderate to fairly significant degenerative spondylosis of the cervical spine seen on the sagittal counting sequence with the moderate canal stenosis as well as a cord compression most significant at at the C4-C5 and C5-C6 levels. Neurologist Dr Wilson consulted- help appreciated. Started patient on Plavix 75mg PO daily Gabapentin increased to 400mg PO BID Solumedrol 40mg IV q12h LE dopplers negative for DVT Consulted Dr Olsen (back specialist) for evaluation of MRI and recommendation , help appreciated- Dr Olsen saw and examined patient. No acute surgical intervention at this time. Abnormal Brain MRI- Subacute CVA 03/22 Brain MRI- Acute/subacute infarct changes are felt be present within the mid diana. Neurologist Dr Wilson on board, started patient on Plavix 75mg PO daily on 03/23 Crestor 20mg PO HS Cholesterol 132 Triglycerides 132 HDL 15 LDL 85 HgA1C 4.7 Thrombocytopenia Immunosuppression and immune mediated suspected Element of sepsis Dr Daley (heme) consulted- suggests possible bone marrow biopsy in future if does not improve Will continue to monitor Anemia of chronic disease Will monitor Hbg and transfuse as indicated 03/24: Hgb 9.0 after 1u pRBCs transfused yesterday 03/23: Hgb declined to 7.6 today, will transfuse 1u pRBCs today s/p total 3u pRBC transfusion Consulted Dr Daley (heme/onc)- help appreciated direct kimo negative low retic index; hypoproliferative erythroid response unlikely acute hemolysis immunosuppression contribution on marrow Hx Lupus Consulted Dr Puckett- will need eye examination but the recommends starting plaquenil Per DR pillai will restart the plauqenil. Plaquenil 200mg PO BID Was taking home meds leflunomide and hydroxychloroquine, held on admission May be contributing to patient's neuropathic pain Prophylactic measures Contraindication for SCDs due to pain Contraindication for anticoagulation due to thrombocytopenia Protonix 40mg PO daily PICC line placed. Will remove central line today. Management per Dr Pillai
--- NOTE | 2017-03-28 00:07 | CP.PCM.PN ---
Subjective - Date & Time of Evaluation Date of Evaluation: 03/27/17 Time of Evaluation: 20:00 - Subjective Subjective: Overall feeling better Objective - Vital Signs/Intake and Output Vital Signs (last 24 hours): Temp Pulse Resp BP Pulse Ox 98.7 F 99 H 20 129/78 96 03/27/17 16:00 03/27/17 16:00 03/27/17 16:00 03/27/17 16:00 03/27/17 16:00 Intake and Output: 03/27/17 03/28/17 18:59 06:59 Intake Total 420 Balance 420 - Medications Medications: Current Medications Clopidogrel Bisulfate (Plavix) 75 mg PO DAILY [facility] Last Admin: 03/27/17 10:01 Dose: 75 mg Famotidine (Pepcid) 20 mg PO BID [facility] Last Admin: 03/27/17 16:59 Dose: 20 mg Gabapentin (Neurontin) 400 mg PO BID [facility] Last Admin: 03/27/17 16:59 Dose: 400 mg Hydroxychloroquine Sulfate (Plaquenil) 200 mg PO DAILY [facility] Aztreonam 1 gm/ Dextrose 100 mls @ 100 mls/hr IVPB Q8H [facility] Methylprednisolone (Solu-Medrol) 40 mg IVP Q12 [facility] Last Admin: 03/27/17 21:01 Dose: 40 mg Ondansetron HCl (Zofran Inj) 4 mg IVP Q6H PRN PRN Reason: Nausea/Vomiting Last Admin: 03/20/17 15:01 Dose: 4 mg Rosuvastatin Calcium (Crestor) 20 mg PO HS [facility] Last Admin: 03/27/17 21:01 Dose: 20 mg Vitamin A (Vitamin A & D Oint Ud Foilpak) 0.5 ea TOP Q4 [facility] Last Admin: 03/27/17 21:00 Dose: 0.5 ea - Labs Labs: 03/26/17 06:43 03/24/17 06:18 PT 16.2 SECONDS (9.7-12.2) H 03/20/17 04:08 INR 1.4 03/20/17 04:08 APTT 38 SECONDS (21-34) H D 03/20/17 04:08 - Head Exam Head Exam: ATRAUMATIC - Eye Exam Eye Exam: Normal appearance - ENT Exam ENT Exam: Mucous Membranes Dry - Respiratory Exam Respiratory Exam: NORMAL BREATHING PATTERN - Cardiovascular Exam Cardiovascular Exam: +S1, +S2 - GI/Abdominal Exam GI & Abdominal Exam: Normal Bowel Sounds Assessment and Plan (1) Thrombocytopenia Assessment & Plan: immunosuppression and immune mediated suspected element of sepsis slightly improved on steroids if counts do not rebound, will need bone marrow evaluation Status: Acute (2) Anemia Assessment & Plan: s/p 2U PRBC direct kimo negative low retic index; hypoproliferative erythroid response unlikely acute hemolysis anemia of chronic disease immunosuppression contribution on marrow if counts do not rebound, may need bone marrow evaluation Status: Acute (3) Coagulopathy Assessment & Plan: nutritional Status: Acute
[2017-03-28] MEDS: Vitamins A & D Oint UD Foilpak TOP SCH ×3 (00:40→08:16)
[2017-03-28] MEDS: Aztreonam 1 GM in Dextrose 5% In Water 100 ML IVPB SCH ×3 (00:41→17:37)
[2017-03-28 06:40] LABS: BASO % 0.3 % (0.0-2.0); HEMOGLOBIN 8.9 g/dL (11.0-16.0); LYMPH # 0.4 K/uL (1.0-4.3); LYMPH % 3.6 % (20.0-40.0); MEAN CELL VOLUME 88.7 fL (81.0-99.0); MEAN CORPUSCULAR HEMOGLOBIN 29.1 pg (27.0-31.0); MEAN CORPUSCULAR HGB CONC 32.8 g/dL (33.0-37.0); MEAN PLATELET VOLUME 10.4 fL (7.2-11.7); MONO # 1.6 K/uL (0.0-0.8); MONO % 16.1 % (0.0-10.0); NEUT # 7.8 K/uL (1.8-7.0); PLATELET COUNT 39 K/uL (130-400); RBC 3.07 Mil/uL (3.80-5.20); RED CELL DISTRIBUTION WIDTH 19.1 % (11.5-14.5); WHITE BLOOD COUNT 9.8 K/uL (4.8-10.8)
[2017-03-28 06:55] LABS: ALB/GLOB RATIO 0.8 (1.0-2.1); ALT/SGPT 42 U/L (9-52); AST/SGOT 34 U/L (14-36); BLOOD UREA NITROGEN 15 mg/dL (7-17); GFR AFRICAN-AMERICAN > 60; GFR NON-AFRICAN AMERICAN > 60; MAGNESIUM 1.3 mg/dL (1.6-2.3)
[2017-03-28 09:40] LABS: BANDS 1 % (0-2); LYMPHOCYTE 3 % (20-40); MONOCYTE 8 % (0-10); NEUTROPHIL 88 % (50-75); TOTAL CELLS COUNTED 100
[2017-03-28 09:42] LABS: ANISOCYTOSIS SLIGHT; PLATELET ESTIMATE DECREASED (NORMAL)
[2017-03-28 09:43] LABS: HYPOCHROMIC SLIGHT; POLYCHROMIC SLIGHT
[2017-03-28] MEDS: MethylPREDNISolone 40 mg Vial IVP SCH ×2 (10:07→21:52)
--- NOTE | 2017-03-28 14:05 | CP.PCM.PN ---
Subjective - Date & Time of Evaluation Date of Evaluation: 03/28/17 Time of Evaluation: 09:20 - Subjective Subjective: PGY2 medicine progress note for Dr. Pillai Patient seen and examined. Patient reports improved pain today and good appetite. She reports improved strength and mobility. Objective - Vital Signs/Intake and Output Vital Signs (last 24 hours): Temp Pulse Resp BP Pulse Ox 98.4 F 101 H 20 126/81 100 03/28/17 07:20 03/28/17 08:01 03/28/17 07:20 03/28/17 07:20 03/28/17 07:20 Intake and Output: 03/28/17 03/28/17 06:59 18:59 Intake Total 420 Output Total 800 Balance -380 - Medications Medications: Current Medications Clopidogrel Bisulfate (Plavix) 75 mg PO DAILY [facility] Last Admin: 03/28/17 10:07 Dose: 75 mg Emollient Ointment (Vaseline Oint) 0.5 gm TOP Q4 [facility] Famotidine (Pepcid) 20 mg PO BID [facility] Last Admin: 03/28/17 10:07 Dose: 20 mg Gabapentin (Neurontin) 400 mg PO BID [facility] Last Admin: 03/28/17 10:07 Dose: 400 mg Hydroxychloroquine Sulfate (Plaquenil) 200 mg PO DAILY [facility] Last Admin: 03/28/17 10:07 Dose: 200 mg Aztreonam 1 gm/ Dextrose 100 mls @ 100 mls/hr IVPB Q8H [facility] Last Admin: 03/28/17 10:08 Dose: 100 mls/hr Methylprednisolone (Solu-Medrol) 40 mg IVP Q12 [facility] Last Admin: 03/28/17 10:07 Dose: 40 mg Ondansetron HCl (Zofran Inj) 4 mg IVP Q6H PRN PRN Reason: Nausea/Vomiting Last Admin: 03/20/17 15:01 Dose: 4 mg Rosuvastatin Calcium (Crestor) 20 mg PO HS [facility] Last Admin: 03/27/17 21:01 Dose: 20 mg - Labs Labs: 03/28/17 06:23 03/28/17 06:23 PT 16.2 SECONDS (9.7-12.2) H 03/20/17 04:08 INR 1.4 03/20/17 04:08 APTT 38 SECONDS (21-34) H D 03/20/17 04:08 - Constitutional Appears: No Acute Distress - Head Exam Head Exam: ATRAUMATIC - Eye Exam Eye Exam: EOMI - ENT Exam ENT Exam: Mucous Membranes Moist - Respiratory Exam Respiratory Exam: Clear to Ausculation Bilateral - Cardiovascular Exam Cardiovascular Exam: +S1, +S2 - GI/Abdominal Exam GI & Abdominal Exam: Soft - Extremities Exam Extremities Exam: Pedal Edema Additional comments: LE tenderness - Neurological Exam Neurological Exam: Alert, Awake - Psychiatric Exam Psychiatric exam: Normal Affect - Skin Skin Exam: Warm Assessment and Plan - Assessment and Plan (Free Text) Assessment: Sepsis, resolved Likely secondary to infection of wounds- wound care on board, help appreciated Afebrile since 03/20, no leukocytosis Blood culture negative x 5 days 03/20 - Urine culture positive for gram + cocci ID Dr Bolanos consulted- help appreciated Aztreonam 2gm IV q8h started on 03/20 Vanco 1gm IV q12h started on 03/20 ECHO- LV EF 75%, normal systolic function Painful Sensoromotor Neuropathy 03/22 Lumbar spine MRI- Multilevel degenerative spondylosis most significantly affecting the L3-L4 and L2-L3 levels and to a lesser degree L4-L5 levels. 03/22 Thoracic spine MRI- moderate to fairly significant degenerative spondylosis of the cervical spine seen on the sagittal counting sequence with the moderate canal stenosis as well as a cord compression most significant at at the C4-C5 and C5-C6 levels. Neurologist Dr Wilson consulted- help appreciated. Started patient on Plavix 75mg PO daily Gabapentin increased to 400mg PO BID Solumedrol 40mg IV q12h LE dopplers negative for DVT Consulted Dr Olsen (back specialist) for evaluation of MRI and recommendation , help appreciated- Dr Olsen saw and examined patient. No acute surgical intervention at this time. Abnormal Brain MRI- Subacute CVA 03/22 Brain MRI- Acute/subacute infarct changes are felt be present within the mid diana. Neurologist Dr Wilson on board, started patient on Plavix 75mg PO daily on 03/23 Crestor 20mg PO HS Cholesterol 132 Triglycerides 132 HDL 15 LDL 85 HgA1C 4.7 Thrombocytopenia plt down to 39 today Immunosuppression and immune mediated suspected Element of sepsis Dr Daley (heme) consulted- will do bedside bone marrow biopsy today Anemia of chronic disease Will monitor Hbg and transfuse as indicated 03/28: Hgb 8.9 03/24: Hgb 9.0 after 1u pRBCs transfused yesterday 03/23: Hgb declined to 7.6 today, will transfuse 1u pRBCs today s/p total 3u pRBC transfusion Consulted Dr Daley (heme/onc)- help appreciated direct kimo negative low retic index; hypoproliferative erythroid response unlikely acute hemolysis immunosuppression contribution on marrow Hx Lupus Consulted Dr Puckett- will need eye examination but he recommends starting plaquenil Per Dr Pillai will restart the plauqenil. Plaquenil 200mg PO BID Was taking home meds leflunomide, held on admission May be contributing to patient's neuropathic pain Prophylactic measures Contraindication for SCDs Contraindication for anticoagulation due to thrombocytopenia Protonix 40mg PO daily PICC line placed left arm 03/[address] Pillai
[2017-03-28] MEDS: Petrolatum Oint Foilpak (5 gm) TOP SCH ×2 (17:00→21:00)
--- NOTE | 2017-03-28 18:45 | CP.PCM.PN ---
Subjective - Date & Time of Evaluation Date of Evaluation: 03/28/17 Time of Evaluation: 13:00 - Subjective Subjective: Has pain in legs Agreeable to bone marrow but wants to do it tomorrow; will plan for tomorrow AM Objective - Vital Signs/Intake and Output Vital Signs (last 24 hours): Temp Pulse Resp BP Pulse Ox 98.8 F 108 H 20 128/81 95 03/28/17 16:01 03/28/17 16:01 03/28/17 16:01 03/28/17 16:01 03/28/17 16:01 Intake and Output: 03/28/17 03/28/17 06:59 18:59 Intake Total 420 Output Total 800 Balance -380 - Medications Medications: Current Medications Clopidogrel Bisulfate (Plavix) 75 mg PO DAILY [facility] Last Admin: 03/28/17 10:07 Dose: 75 mg Emollient Ointment (Vaseline Oint) 0.5 gm TOP Q4 [facility] Last Admin: 03/28/17 17:00 Dose: 0.5 gm Famotidine (Pepcid) 20 mg PO BID [facility] Last Admin: 03/28/17 17:37 Dose: 20 mg Gabapentin (Neurontin) 400 mg PO BID [facility] Last Admin: 03/28/17 17:37 Dose: 400 mg Hydroxychloroquine Sulfate (Plaquenil) 200 mg PO DAILY [facility] Last Admin: 03/28/17 10:07 Dose: 200 mg Aztreonam 1 gm/ Dextrose 100 mls @ 100 mls/hr IVPB Q8H [facility] Last Admin: 03/28/17 17:37 Dose: 100 mls/hr Methylprednisolone (Solu-Medrol) 40 mg IVP Q12 [facility] Last Admin: 03/28/17 10:07 Dose: 40 mg Ondansetron HCl (Zofran Inj) 4 mg IVP Q6H PRN PRN Reason: Nausea/Vomiting Last Admin: 03/20/17 15:01 Dose: 4 mg Rosuvastatin Calcium (Crestor) 20 mg PO HS [facility] Last Admin: 03/27/17 21:01 Dose: 20 mg - Labs Labs: 03/28/17 06:23 03/28/17 06:23 PT 16.2 SECONDS (9.7-12.2) H 03/20/17 04:08 INR 1.4 03/20/17 04:08 APTT 38 SECONDS (21-34) H D 03/20/17 04:08 - Head Exam Head Exam: ATRAUMATIC - Eye Exam Eye Exam: Normal appearance - ENT Exam ENT Exam: Mucous Membranes Dry - Respiratory Exam Respiratory Exam: NORMAL BREATHING PATTERN - Cardiovascular Exam Cardiovascular Exam: +S1, +S2 - GI/Abdominal Exam GI & Abdominal Exam: Normal Bowel Sounds Assessment and Plan (1) Thrombocytopenia Assessment & Plan: immunosuppression and immune mediated suspected element of sepsis slightly improved on steroids for bone marrow evaluation Status: Acute (2) Anemia Assessment & Plan: s/p 2U PRBC direct kimo negative low retic index; hypoproliferative erythroid response unlikely acute hemolysis anemia of chronic disease immunosuppression contribution on marrow for bone marrow evaluation Status: Acute (3) Coagulopathy Status: Acute
[2017-03-29] MEDS: Petrolatum Oint Foilpak (5 gm) TOP SCH ×6 (01:00→19:27)
[2017-03-29] MEDS: Aztreonam 1 GM in Dextrose 5% In Water 100 ML IVPB SCH ×3 (01:21→18:00)
[2017-03-29] MEDS: Vitamins A & D Oint UD Foilpak TOP SCH ×6 (03:00→19:27)
[2017-03-29 04:43] LABS: BASO % 0.3 % (0.0-2.0); HEMOGLOBIN 9.3 g/dL (11.0-16.0); LYMPH # 0.3 K/uL (1.0-4.3); LYMPH % 2.4 % (20.0-40.0); MEAN CELL VOLUME 88.6 fL (81.0-99.0); MEAN CORPUSCULAR HEMOGLOBIN 28.8 pg (27.0-31.0); MEAN CORPUSCULAR HGB CONC 32.5 g/dL (33.0-37.0); MEAN PLATELET VOLUME 9.7 fL (7.2-11.7); MONO # 1.6 K/uL (0.0-0.8); MONO % 12.9 % (0.0-10.0); NEUT # 10.2 K/uL (1.8-7.0); NEUT % 84.4 % (50.0-75.0); PLATELET COUNT 39 K/uL (130-400); RBC 3.22 Mil/uL (3.80-5.20); RED CELL DISTRIBUTION WIDTH 18.8 % (11.5-14.5); WHITE BLOOD COUNT 12.1 K/uL (4.8-10.8)
[2017-03-29 05:06] LABS: ALB/GLOB RATIO 0.6 (1.0-2.1); ALBUMIN 2.1 g/dL (3.5-5.0); ALT/SGPT 49 U/L (9-52); AST/SGOT 34 U/L (14-36); BLOOD UREA NITROGEN 16 mg/dL (7-17); CALCIUM 7.4 mg/dl (8.6-10.4); GFR AFRICAN-AMERICAN > 60; GFR NON-AFRICAN AMERICAN > 60; MAGNESIUM 1.4 mg/dL (1.6-2.3)
[2017-03-29 05:09] LABS: CK-MB 5.64 ng/mL (0.0-3.38)
[2017-03-29] MEDS ORDERED: Heparin25000 units/250ml 1/2NS 25,000 UNITS/250 ML BAG IV PRN (05:16)
[2017-03-29 05:54] LABS: LYMPHOCYTE 3 % (20-40); MONOCYTE 11 % (0-10); NEUTROPHIL 86 % (50-75); PLATELET ESTIMATE MARKEDLY DECREASED (NORMAL); TOTAL CELLS COUNTED 100
[2017-03-29 05:55] LABS: ANISOCYTOSIS MODERATE; POLYCHROMIC SLIGHT
[2017-03-29 05:56] LABS: ROULEAUX FORMATION SLIGHT
--- NOTE | 2017-03-29 07:31 | CP.PCM.PN ---
Subjective - Date & Time of Evaluation Date of Evaluation: 03/29/17 Time of Evaluation: 09:00 - Subjective Subjective: PGY2 medicine progress note for Dr. Pillai Patient seen and examined. Patient reported SOB and looked to be in distress. Chest Xray EKG and labs were ordered. Patient desturated to 84% O2 on room air. She was put on a nonrebreather at 100% and her saturation came up into the 90s. Patient was still tachynepic and using accessory muscles to breath so she was put on Bipap and given 40mg of IV Lasix. Patient denied chest pain but has wheezing and rales in all lung graves bilaterally. ICU was consulted and patient was transferred. Earlier that night the patient has some SOB and chest pain and was found to have a positive troponin. Cardiology was consulted. Another troponin was ordered. The EKG done at this time did not show any changes compared to the EKG done earlier in the AM when the patient was also short of breath. Objective - Vital Signs/Intake and Output Vital Signs (last 24 hours): Temp Pulse Resp BP Pulse Ox 99.4 F 127 H 20 130/79 99 03/28/17 23:40 03/29/17 00:00 03/28/17 23:40 03/28/17 23:40 03/28/17 23:40 Intake and Output: 03/29/17 03/29/17 06:59 18:59 Intake Total 660 Output Total 800 Balance -140 - Medications Medications: Current Medications Clopidogrel Bisulfate (Plavix) 75 mg PO DAILY [facility] Last Admin: 03/28/17 10:07 Dose: 75 mg Emollient Ointment (Vaseline Oint) 0.5 gm TOP Q4 [facility] Last Admin: 03/29/17 03:00 Dose: Not Given Famotidine (Pepcid) 20 mg PO BID [facility] Last Admin: 03/28/17 17:37 Dose: 20 mg Gabapentin (Neurontin) 400 mg PO BID [facility] Last Admin: 03/28/17 17:37 Dose: 400 mg Hydroxychloroquine Sulfate (Plaquenil) 200 mg PO DAILY [facility] Last Admin: 03/28/17 10:07 Dose: 200 mg Aztreonam 1 gm/ Dextrose 100 mls @ 100 mls/hr IVPB Q8H [facility] Last Admin: 03/29/17 01:21 Dose: 100 mls/hr Heparin Sodium/Sodium Chloride (Heparin 87802 Units/250ml 1/2 Normal Saline) 25 ,000 units in 250 mls @ 0 mls/hr IV .Q0M PRN; Protocol; Per Protocol PRN Reason: PROTOCOL Magnesium Sulfate/Dextrose (Magnesium Sulfate 1 Gm/100 Ml D5w) 1 gm in 100 mls @ 300 mls/hr IVPB Q30M [facility] Stop: 03/29/17 08:19 Methylprednisolone (Solu-Medrol) 40 mg IVP Q12 [facility] Last Admin: 03/28/17 21:52 Dose: 40 mg Ondansetron HCl (Zofran Inj) 4 mg IVP Q6H PRN PRN Reason: Nausea/Vomiting Last Admin: 03/20/17 15:01 Dose: 4 mg Rosuvastatin Calcium (Crestor) 20 mg PO HS [facility] Last Admin: 03/28/17 21:52 Dose: 20 mg Vitamin A (Vitamin A & D Oint Ud Foilpak) 0.5 ea TOP Q4 [facility] Last Admin: 03/29/17 03:00 Dose: 0.5 ea - Labs Labs: 03/29/17 04:38 03/29/17 04:38 PT 16.2 SECONDS (9.7-12.2) H 03/20/17 04:08 INR 1.4 03/20/17 04:08 APTT 38 SECONDS (21-34) H D 03/20/17 04:08 - Constitutional Appears: Non-toxic, In Acute Distress, Chronically Ill - Head Exam Head Exam: ATRAUMATIC - Eye Exam Eye Exam: EOMI - ENT Exam ENT Exam: Mucous Membranes Moist - Respiratory Exam Respiratory Exam: Accessory Muscle Use, Rales, Rhonchi, Wheezes, Respiratory Distress. absent: NORMAL BREATHING PATTERN - Cardiovascular Exam Cardiovascular Exam: Tachycardia, +S1, +S2 - GI/Abdominal Exam GI & Abdominal Exam: Soft, Normal Bowel Sounds. absent: Distended, Firm, Guarding, Tenderness - Extremities Exam Extremities Exam: Pedal Edema Additional comments: LE tenderness, bilateral leg edema - Back Exam Back Exam: NORMAL INSPECTION - Neurological Exam Neurological Exam: Alert, Awake, Oriented x3 - Psychiatric Exam Psychiatric exam: Normal Affect, Normal Mood - Skin Skin Exam: Dry, Intact, Normal Color, Warm Assessment and Plan - Assessment and Plan (Free Text) Assessment: Patient transferred to the ICU. NSTEMI Episode of chest pain overnight. EKG with changes compared to previous without St elevation. Trop #1 was 0.2650, will continue to trend Dr. Medellin (cardiology) was notified - help appreciated Sepsis, resolved Likely secondary to infection of wounds- wound care on board, help appreciated Afebrile since 03/20, no leukocytosis Blood culture negative x 5 days 03/20 - Urine culture positive for gram + cocci ID Dr Bolanos consulted- help appreciated Aztreonam 2gm IV q8h started on 03/20 Vanco 1gm IV q12h started on 03/20 ECHO- LV EF 75%, normal systolic function Painful Sensoromotor Neuropathy 03/22 Lumbar spine MRI- Multilevel degenerative spondylosis most significantly affecting the L3-L4 and L2-L3 levels and to a lesser degree L4-L5 levels. 03/22 Thoracic spine MRI- moderate to fairly significant degenerative spondylosis of the cervical spine seen on the sagittal counting sequence with the moderate canal stenosis as well as a cord compression most significant at at the C4-C5 and C5-C6 levels. Neurologist Dr Wilson consulted- help appreciated. Started patient on Plavix 75mg PO daily Gabapentin increased to 400mg PO BID Solumedrol 40mg IV q12h LE dopplers negative for DVT Consulted Dr Olsen (back specialist) for evaluation of MRI and recommendation , help appreciated- Dr Olsen saw and examined patient. No acute surgical intervention at this time. Abnormal Brain MRI- Subacute CVA 03/22 Brain MRI- Acute/subacute infarct changes are felt be present within the mid diana. Neurologist Dr Wilson on board, started patient on Plavix 75mg PO daily on 03/23 Crestor 20mg PO HS Cholesterol 132 Triglycerides 132 HDL 15 LDL 85 HgA1C 4.7 Thrombocytopenia plt down to 39 today Immunosuppression and immune mediated suspected Element of sepsis Dr Daley (heme) consulted- will do bedside bone marrow biopsy, patient refused yesterday so will offer again today Anemia of chronic disease Will monitor Hbg and transfuse as indicated 03/29: Hbg 9.3 03/28: Hgb 8.9 03/24: Hgb 9.0 after 1u pRBCs transfused yesterday 03/23: Hgb declined to 7.6 today, will transfuse 1u pRBCs today s/p total 3u pRBC transfusion Consulted Dr Daley (heme/onc)- help appreciated direct kimo negative low retic index; hypoproliferative erythroid response unlikely acute hemolysis immunosuppression contribution on marrow Hx Lupus Consulted Dr Puckett- dipti need eye examination but he recommends starting plaquenil Per Dr Pillai will restart the plauqenil. Plaquenil 200mg PO BID Was taking home meds leflunomide, held on admission May be contributing to patient's neuropathic pain Prophylactic measures Contraindication for SCDs Contraindication for anticoagulation due to thrombocytopenia Protonix 40mg PO daily PICC line placed left arm 03/[address] Pillai
[2017-03-29] MEDS: Magnesium Sulfate 1 gm in D5W 1 GM/100 ML BAG IVPB SCH ×2 (08:02→10:07)
[2017-03-29] MEDS ORDERED: Albuterol-Ipratrop 3 mg / 0.5 (3 ml) UD INH ONE (09:30)
[2017-03-29] MEDS ORDERED: Vancomycin 1 gm/NS 200 ml 1 GM/200 ML BAG IVPB ONE (09:36)
[2017-03-29] MEDS: MethylPREDNISolone 40 mg Vial IVP SCH ×2 (10:08→23:05)
--- NOTE | 2017-03-29 11:14 | CP.PCM.CON ---
Past Patient History - Past Medical History & Family History Past Medical History?: Yes - Past Social History Smoking Status: Former Smoker Chewing Tobacco Use: No Cigar Use: No Alcohol: None Drugs: Denies Home Situation {Lives}: With Family Domestic Violence: Negative - CARDIAC Hx Cardiac Disorders: Yes Hx Congestive Heart Failure: Yes Hx Hypertension: Yes - PULMONARY Hx Respiratory Disorders: No - NEUROLOGICAL Hx Neurological Disorder: No - HEENT Hx HEENT Problems: No - RENAL Hx Chronic Kidney Disease: No - ENDOCRINE/METABOLIC Hx Endocrine Disorders: Yes Hx Systemic Lupus Erythematosus: Yes - HEMATOLOGICAL/ONCOLOGICAL Hx Blood Disorders: No - INTEGUMENTARY Hx Dermatological Problems: Yes Other/Comment: multiple open wound bilateral buttocks and right thigh - MUSCULOSKELETAL/RHEUMATOLOGICAL Hx Arthritis: Yes Hx Rheumatoid Arthritis: Yes - GASTROINTESTINAL Hx Gastrointestinal Disorders: No - GENITOURINARY/GYNECOLOGICAL Hx Genitourinary Disorders: No - PSYCHIATRIC Hx Psychophysiologic Disorder: No Hx Substance Use: No - SURGICAL HISTORY Hx Surgeries: No - ANESTHESIA Hx Anesthesia: No Meds Allergies/Adverse Reactions: Allergies Allergy/AdvReac Type Severity Reaction Status Date / Time Penicillins Allergy Verified 03/19/17 23:45 Sulfa (Sulfonamide Allergy Verified 03/19/17 23:45 Antibiotics) - Medications Medications: Current Medications Clopidogrel Bisulfate (Plavix) 75 mg PO DAILY [facility] Last Admin: 03/29/17 10:07 Dose: 75 mg Emollient Ointment (Vaseline Oint) 0.5 gm TOP Q4 [facility] Last Admin: 03/29/17 09:02 Dose: Not Given Famotidine (Pepcid) 20 mg PO BID [facility] Last Admin: 03/29/17 10:07 Dose: 20 mg Gabapentin (Neurontin) 400 mg PO BID [facility] Last Admin: 03/29/17 10:07 Dose: 400 mg Hydroxychloroquine Sulfate (Plaquenil) 200 mg PO DAILY [facility] Last Admin: 03/29/17 10:07 Dose: 200 mg Aztreonam 1 gm/ Dextrose 100 mls @ 100 mls/hr IVPB Q8H [facility] Last Admin: 03/29/17 01:21 Dose: 100 mls/hr Heparin Sodium/Sodium Chloride (Heparin 83574 Units/250ml 1/2 Normal Saline) 25 ,000 units in 250 mls @ 0 mls/hr IV .Q0M PRN; Protocol; Per Protocol PRN Reason: PROTOCOL Methylprednisolone (Solu-Medrol) 40 mg IVP Q12 IMAN Last Admin: 03/29/17 10:08 Dose: 40 mg Ondansetron HCl (Zofran Inj) 4 mg IVP Q6H PRN PRN Reason: Nausea/Vomiting Last Admin: 03/20/17 15:01 Dose: 4 mg Rosuvastatin Calcium (Crestor) 20 mg PO HS IMAN Last Admin: 03/28/17 21:52 Dose: 20 mg Vitamin A (Vitamin A & D Oint Ud Foilpak) 0.5 ea TOP Q4 IMAN Last Admin: 03/29/17 09:01 Dose: 0.5 ea Results - Vital Signs Recent Vital Signs: Last Vital Signs Temp 98.0 F 03/29/17 08:13 Pulse 119 H 03/29/17 09:40 Resp 18 03/29/17 08:13 BP 133/93 H 03/29/17 09:30 Pulse Ox 96 03/29/17 08:13 - Labs Result Diagrams: 03/29/17 04:38 03/29/17 04:38 Labs: Laboratory Results - last 24 hr 03/27/17 03/29/17 03/29/17 06:47 04:38 04:38 WBC 12.1 H RBC 3.22 L Hgb 9.3 L Hct 28.6 L MCV 88.6 MCH 28.8 MCHC 32.5 L RDW 18.8 H Plt Count 39 L MPV 9.7 Neut % (Auto) 84.4 H Lymph % (Auto) 2.4 L [place] % (Auto) 12.9 H Eos % (Auto) 0.0 Baso % (Auto) 0.3 Neut # 10.2 H Lymph # 0.3 L [place] # 1.6 H Eos # 0.0 Baso # 0.0 Neutrophils % (Manual) 86 H Lymphocytes % (Manual) 3 L Monocytes % (Manual) 11 H Platelet Estimate Markedly decreased L Polychromasia Slight Anisocytosis (manual) Moderate Rouleaux Slight Sodium 129 L Potassium 4.6 Chloride 99 Carbon Dioxide 29 Anion Gap 6 L BUN 16 Creatinine 0.5 L Est GFR ( Amer) > 60 Est GFR (Non-Af Amer) > 60 Random Glucose 118 H Calcium 7.4 L Phosphorus 3.4 Magnesium 1.4 L Total Bilirubin 0.6 AST 34 ALT 49 Alkaline Phosphatase 136 H Total Creatine Kinase CK-MB (Mass) Troponin I Total Protein 5.3 L Albumin 2.1 L Globulin 3.3 Albumin/Globulin Ratio 0.6 L Anti-Cardiolipin IgG Ab <14 Anti-Cardiolipin IgM Ab <12 03/29/17 04:38 WBC RBC Hgb Hct MCV MCH MCHC RDW Plt Count MPV Neut % (Auto) Lymph % (Auto) [place] % (Auto) Eos % (Auto) Baso % (Auto) Neut # Lymph # [place] # Eos # Baso # Neutrophils % (Manual) Lymphocytes % (Manual) Monocytes % (Manual) Platelet Estimate Polychromasia Anisocytosis (manual) Rouleaux Sodium Potassium Chloride Carbon Dioxide Anion Gap BUN Creatinine Est GFR ( Amer) Est GFR (Non-Af Amer) Random Glucose Calcium Phosphorus Magnesium Total Bilirubin AST ALT Alkaline Phosphatase Total Creatine Kinase < 20 L CK-MB (Mass) 5.64 H Troponin I 0.2650 H* Total Protein Albumin Globulin Albumin/Globulin Ratio Anti-Cardiolipin IgG Ab Anti-Cardiolipin IgM Ab
--- NOTE | 2017-03-29 11:30 | CP.CCUPN ---
<SukhThais - Last Filed: 03/29/17 16:39> CCU Subjective - Physician Review Subjective (Free Text): 03/29/17 11:28 61 F with h/o lupus on leflunomide and hydroxychloroquine, b/l leg edema on diuretic, neuropathy, CVA, anemia of chronic disease admitted for cellulitis with sepsis who presents to the ICU for SOB and elevated troponin. Patient says she became short of breath last night and it improved on BiPAP however today again she become SOB and her troponin level was elevated. Patient currently denies SOB, headache, dizziness, chest pain, jaw/neck pain, abdominal pain, n/v/ d/c, urinary incontinence, dysuria, and LE pain/swelling. Sepsis and cellulitis resolved with negative blood cultures. Patient was to be evaluated with bedside bone marrow biopsy for anemia yesterday/today however she refused. CCU Objective - Vital Signs / Intake & Output Vital Signs (Last 4 hours): Vital Signs Temp Pulse Resp BP Pulse Ox 03/29/17 09:40 119 H 03/29/17 09:30 133/93 H 03/29/17 08:13 98.0 F 120 H 18 112/78 96 Intake and Output (Last 8hrs): Intake & Output 03/28/17 03/29/17 03/29/17 22:59 06:59 14:59 Intake Total 420 240 Output Total 300 500 Balance 120 -260 Intake: Intake, IV Amount 100 Left Upper arm 100 Oral 320 240 Output: Urine 300 500 Urine, Voided 300 500 Other: # Voids Urine, Voided 150 # Bowel Movements 1 0 - Physical Exam Head: Positive for: Atraumatic, Normocephalic Pupils: Positive for: PERRL Extroacular Muscles: Positive for: EOMI Conjunctiva: Positive for: Normal Mouth: Positive for: Moist Mucous Membranes Neck: Positive for: Normal Range of Motion Respiratory/Chest: Positive for: Clear to Auscultation, Accessory Muscle Use, Other (on nonrebreather ). Negative for: Wheezes, Rales, Rhonchi Cardiovascular: Positive for: Normal S1, S2, Tachycardic Abdomen: Positive for: Normal Bowel Sounds. Negative for: Tenderness, Distention, Peritoneal Signs Upper Extremity: Positive for: Normal Inspection Lower Extremity: Positive for: Edema. Negative for: Tenderness Neurological: Positive for: GCS=15, Speech Normal Skin: Positive for: Warm, Dry, Normal Color. Negative for: Rashes Psychiatric: Positive for: Alert, Oriented x 3, Normal Insight, Normal Concentration - Medications Active Medications: Active Medications Generic Name Dose Route Start Last Admin Trade Name Freq PRN Reason Stop Dose Admin Clopidogrel Bisulfate 75 mg 03/23/17 10:00 03/29/17 10:07 Plavix PO 75 mg DAILY IMAN Administration Emollient Ointment 0.5 gm 03/28/17 16:00 03/29/17 09:02 Vaseline Oint TOP Not Given Q4 IMAN Famotidine 20 mg 03/23/17 10:00 03/29/17 10:07 Pepcid PO 20 mg BID IMAN Administration Gabapentin 400 mg 03/23/17 10:00 03/29/17 10:07 Neurontin PO 400 mg BID IMAN Administration Hydroxychloroquine Sulfate 200 mg 03/28/17 10:00 03/29/17 10:07 Plaquenil PO 200 mg DAILY IMAN Administration Aztreonam 1 gm/ Dextrose 100 mls @ 100 mls/hr 03/28/17 01:30 03/29/17 01:21 IVPB 100 mls/hr Q8H IMAN Administration Heparin Sodium/Sodium Chloride 25,000 units in 250 mls @ 0 mls/hr 03/29/17 05: 16 Heparin 57582 Units/250ml 1/2 Normal Saline IV .Q0M PRN PROTOCOL Protocol Per Protocol Methylprednisolone 40 mg 03/20/17 11:15 03/29/17 10:08 Solu-Medrol IVP 40 mg Q12 IMAN Administration Ondansetron HCl 4 mg 03/20/17 15:00 03/20/17 15:01 Zofran Inj IVP 4 mg Q6H PRN Administration Nausea/Vomiting Rosuvastatin Calcium 20 mg 03/23/17 22:00 03/28/17 21:52 Crestor PO 20 mg HS IMAN Administration Vitamin A 0.5 ea 03/29/17 00:00 03/29/17 09:01 Vitamin A & D Oint Ud Foilpak TOP 0.5 ea Q4 IMAN Administration - Patient Studies Lab Studies: Lab Studies 03/29/17 03/29/17 03/29/17 Range/Units 04:38 04:38 04:38 WBC 12.1 H (4.8-10.8) K/uL RBC 3.22 L (3.80-5.20) Mil/uL Hgb 9.3 L (11.0-16.0) g/dL Hct 28.6 L (34.0-47.0) % MCV 88.6 (81.0-99.0) fL MCH 28.8 (27.0-31.0) pg MCHC 32.5 L (33.0-37.0) g/dL RDW 18.8 H (11.5-14.5) % Plt Count 39 L (130-400) K/uL MPV 9.7 (7.2-11.7) fL Neut % (Auto) 84.4 H (50.0-75.0) % Lymph % (Auto) 2.4 L (20.0-40.0) % [place] % (Auto) 12.9 H (0.0-10.0) % Eos % (Auto) 0.0 (0.0-4.0) % Baso % (Auto) 0.3 (0.0-2.0) % Neut # 10.2 H (1.8-7.0) K/uL Lymph # 0.3 L (1.0-4.3) K/uL [place] # 1.6 H (0.0-0.8) K/uL Eos # 0.0 (0.0-0.7) K/uL Baso # 0.0 (0.0-0.2) K/uL Neutrophils % (Manual) 86 H (50-75) % Lymphocytes % (Manual) 3 L (20-40) % Monocytes % (Manual) 11 H (0-10) % Platelet Estimate Markedly decreased L (NORMAL) Polychromasia Slight Anisocytosis (manual) Moderate Rouleaux Slight Sodium 129 L (132-148) mmol/L Potassium 4.6 (3.6-5.2) mmol/L Chloride 99 (98-107) mmol/L Carbon Dioxide 29 (22-30) mmol/L Anion Gap 6 L (10-20) BUN 16 (7-17) mg/dL Creatinine 0.5 L (0.7-1.2) mg/dL Est GFR ( Amer) > 60 Est GFR (Non-Af Amer) > 60 Random Glucose 118 H (65-105) mg/dL Calcium 7.4 L (8.6-10.4) mg/dl Phosphorus 3.4 (2.5-4.5) mg/dL Magnesium 1.4 L (1.6-2.3) mg/dL Total Bilirubin 0.6 (0.2-1.3) mg/dL AST 34 (14-36) U/L ALT 49 (9-52) U/L Alkaline Phosphatase 136 H (38-126) U/L Total Creatine Kinase < 20 L (30-135) U/L CK-MB (Mass) 5.64 H (0.0-3.38) ng/mL Troponin I 0.2650 H* (0.00-0.120) ng/mL Total Protein 5.3 L (6.3-8.3) g/dL Albumin 2.1 L (3.5-5.0) g/dL Globulin 3.3 (2.2-3.9) gm/dL Albumin/Globulin Ratio 0.6 L (1.0-2.1) Anti-Cardiolipin IgG Ab (<=14) GPL Anti-Cardiolipin IgM Ab (<=12) MPL 03/27/17 Range/Units 06:47 WBC (4.8-10.8) K/uL RBC (3.80-5.20) Mil/uL Hgb (11.0-16.0) g/dL Hct (34.0-47.0) % MCV (81.0-99.0) fL MCH (27.0-31.0) pg MCHC (33.0-37.0) g/dL RDW (11.5-14.5) % Plt Count (130-400) K/uL MPV (7.2-11.7) fL Neut % (Auto) (50.0-75.0) % Lymph % (Auto) (20.0-40.0) % [place] % (Auto) (0.0-10.0) % Eos % (Auto) (0.0-4.0) % Baso % (Auto) (0.0-2.0) % Neut # (1.8-7.0) K/uL Lymph # (1.0-4.3) K/uL [place] # (0.0-0.8) K/uL Eos # (0.0-0.7) K/uL Baso # (0.0-0.2) K/uL Neutrophils % (Manual) (50-75) % Lymphocytes % (Manual) (20-40) % Monocytes % (Manual) (0-10) % Platelet Estimate (NORMAL) Polychromasia Anisocytosis (manual) Rouleaux Sodium (132-148) mmol/L Potassium (3.6-5.2) mmol/L Chloride (98-107) mmol/L Carbon Dioxide (22-30) mmol/L Anion Gap (10-20) BUN (7-17) mg/dL Creatinine (0.7-1.2) mg/dL Est GFR ( Amer) Est GFR (Non-Af Amer) Random Glucose (65-105) mg/dL Calcium (8.6-10.4) mg/dl Phosphorus (2.5-4.5) mg/dL Magnesium (1.6-2.3) mg/dL Total Bilirubin (0.2-1.3) mg/dL AST (14-36) U/L ALT (9-52) U/L Alkaline Phosphatase (38-126) U/L Total Creatine Kinase (30-135) U/L CK-MB (Mass) (0.0-3.38) ng/mL Troponin I (0.00-0.120) ng/mL Total Protein (6.3-8.3) g/dL Albumin (3.5-5.0) g/dL Globulin (2.2-3.9) gm/dL Albumin/Globulin Ratio (1.0-2.1) Anti-Cardiolipin IgG Ab <14 (<=14) GPL Anti-Cardiolipin IgM Ab <12 (<=12) MPL Laboratory Results - last 24 hr 03/27/17 03/29/17 03/29/17 06:47 04:38 04:38 WBC 12.1 H RBC 3.22 L Hgb 9.3 L Hct 28.6 L MCV 88.6 MCH 28.8 MCHC 32.5 L RDW 18.8 H Plt Count 39 L MPV 9.7 Neut % (Auto) 84.4 H Lymph % (Auto) 2.4 L [place] % (Auto) 12.9 H Eos % (Auto) 0.0 Baso % (Auto) 0.3 Neut # 10.2 H Lymph # 0.3 L [place] # 1.6 H Eos # 0.0 Baso # 0.0 Neutrophils % (Manual) 86 H Lymphocytes % (Manual) 3 L Monocytes % (Manual) 11 H Platelet Estimate Markedly decreased L Polychromasia Slight Anisocytosis (manual) Moderate Rouleaux Slight Sodium 129 L Potassium 4.6 Chloride 99 Carbon Dioxide 29 Anion Gap 6 L BUN 16 Creatinine 0.5 L Est GFR ( Amer) > 60 Est GFR (Non-Af Amer) > 60 Random Glucose 118 H Calcium 7.4 L Phosphorus 3.4 Magnesium 1.4 L Total Bilirubin 0.6 AST 34 ALT 49 Alkaline Phosphatase 136 H Total Creatine Kinase CK-MB (Mass) Troponin I Total Protein 5.3 L Albumin 2.1 L Globulin 3.3 Albumin/Globulin Ratio 0.6 L Anti-Cardiolipin IgG Ab <14 Anti-Cardiolipin IgM Ab <12 03/29/17 04:38 WBC RBC Hgb Hct MCV MCH MCHC RDW Plt Count MPV Neut % (Auto) Lymph % (Auto) [place] % (Auto) Eos % (Auto) Baso % (Auto) Neut # Lymph # [place] # Eos # Baso # Neutrophils % (Manual) Lymphocytes % (Manual) Monocytes % (Manual) Platelet Estimate Polychromasia Anisocytosis (manual) Rouleaux Sodium Potassium Chloride Carbon Dioxide Anion Gap BUN Creatinine Est GFR ( Amer) Est GFR (Non-Af Amer) Random Glucose Calcium Phosphorus Magnesium Total Bilirubin AST ALT Alkaline Phosphatase Total Creatine Kinase < 20 L CK-MB (Mass) 5.64 H Troponin I 0.2650 H* Total Protein Albumin Globulin Albumin/Globulin Ratio Anti-Cardiolipin IgG Ab Anti-Cardiolipin IgM Ab EKG/Cardiology Studies: Cardiology / EKG Studies 03/29/17 04:10 EKG [ELECTROCARDIOGRAM] Stat Comment: Mode Of Transportation: Reason For Exam: chest pain, sob 03/29/17 09:19 EKG [ELECTROCARDIOGRAM] Stat Comment: Mode Of Transportation: Reason For Exam: sob, Fingerstick Blood Sugar Results: 132 Review of Systems - Review of Systems All systems: reviewed and no additional remarkable complaints except (as per HPI ) Critical Care Progress Note - Nutrition Nutrition: Nutrition Category Date Time Status Heart Healthy Diet [DIET] Diets 03/27/17 Lunch Active Assessment/Plan - Assessment and Plan (Free Text) Plan: Neuro * A&Ox3 * Neurology consulted (Steve) - recs appreciated * Gabapentin 400 mg PO BID Cardio * Tachycardia * BP 133/93 * Troponin + (0.2650) * Plavix 75 mg PO QD * Heparin drip * Crestor 20 mg PO HS * Echo: grade 1 relaxation pattern and mild pulmonary hypertension * EKG: T Wave abnormality * BNP * f/u UE and LE US - r/o DVT Respiratory * Saturating well on BiPAP * Duoneb given this morning * f/u CTA * f/u ABG * Solu-medrol 40 mg IV Q12 Renal * I 660 * O 800 * Balance -140 * BUN/Cr: 16/0.5 Fluids, electrolytes, nutrition * heart healthy diet * Na 129 * Mag 1.4 - replaced * Albumin 2.1 Infectious disease * afebrile * WBC 21.1 * ID consulted (Cici) - recs appreciated * 1g vanc given 03/29 * Aztreonam 1g IV Q8 * Doxy 100 IV Q12 Hematology * H&H: 9.3/28.6 * Plt: 39 * Plavix 75 mg PO QD * Heparin drip * Heme/Onc consulted (Thuy) - recs appreciated * Bone marrow biopsy pending patient consent GI * AST/ALT: 34/49 * Tbili: 0.6 * Zofran PRN Endocrine * monitor blood glucose * Solu-medrol 40 mg IV Q12 Integumentary * A&D ointment * Vaseline Rheumatology * Hydroxychloroquine 200 mg PO QD * Dr. Puckett consulted - recs appreciated Prophylaxis * Pepcid 20 mg PO BID <Obdulio Ford P - Last Filed: 03/29/17 17:52> CCU Objective - Vital Signs / Intake & Output Vital Signs (Last 4 hours): Vital Signs Temp Pulse Resp BP Pulse Ox 03/29/17 17:00 109 H 30 H 120/76 99 03/29/17 16:00 98.2 F 115 H 30 H 112/84 98 03/29/17 15:00 112 H 35 H 126/72 97 03/29/17 14:00 110 H 40 H 122/75 98 Intake and Output (Last 8hrs): Intake & Output 03/29/17 03/29/17 03/29/17 06:59 14:59 22:59 Intake Total 240 500 Output Total 500 400 150 Balance -260 100 -150 Intake: Intake, IV Amount 500 Left Internal Jugular 300 Left Upper arm 200 Oral 240 0 Output: Urine 500 400 150 Urine, Voided 500 400 150 Other: # Voids Urine, Voided 150 2 # Bowel Movements 0 - Medications Active Medications: Active Medications Generic Name Dose Route Start Last Admin Trade Name Freq PRN Reason Stop Dose Admin Clopidogrel Bisulfate 75 mg 03/23/17 10:00 03/29/17 10:07 Plavix PO 75 mg DAILY IMAN Administration Emollient Ointment 0.5 gm 03/28/17 16:00 03/29/17 11:47 Vaseline Oint TOP 0.5 gm Q4 IMAN Administration Famotidine 20 mg 03/23/17 10:00 03/29/17 10:07 Pepcid PO 20 mg BID IMAN Administration Gabapentin 400 mg 03/23/17 10:00 03/29/17 10:07 Neurontin PO 400 mg BID IMAN Administration Hydroxychloroquine Sulfate 200 mg 03/28/17 10:00 03/29/17 10:07 Plaquenil PO 200 mg DAILY IMAN Administration Aztreonam 1 gm/ Dextrose 100 mls @ 100 mls/hr 03/28/17 01:30 03/29/17 10:45 IVPB 100 mls/hr Q8H IMAN Administration Heparin Sodium/Sodium Chloride 25,000 units in 250 mls @ 0 mls/hr 03/29/17 05: 16 Heparin 71106 Units/250ml 1/2 Normal Saline IV .Q0M PRN PROTOCOL Protocol Per Protocol Doxycycline Hyclate 100 mg/ 100 mls @ 100 mls/hr 03/29/17 14:00 Sodium Chloride IVPB Q12H IMAN Fluconazole 200 mls @ 100 mls/hr 03/29/17 16:51 Diflucan Iv 400mg/200ml Ns IVPB 03/29/17 18:50 STAT STA Fluconazole 100 mls @ 100 mls/hr 03/30/17 10:00 Diflucan Iv 200 Mg/100 Ml Ns IVPB DAILY IMAN Methylprednisolone 40 mg 03/20/17 11:15 03/29/17 10:08 Solu-Medrol IVP 40 mg Q12 IMAN Administration Ondansetron HCl 4 mg 03/20/17 15:00 03/20/17 15:01 Zofran Inj IVP 4 mg Q6H PRN Administration Nausea/Vomiting Rosuvastatin Calcium 20 mg 03/23/17 22:00 03/28/17 21:52 Crestor PO 20 mg HS IMAN Administration Vitamin A 0.5 ea 03/29/17 00:00 03/29/17 11:47 Vitamin A & D Oint Ud Foilpak TOP 0.5 ea Q4 IMAN Administration - Patient Studies Lab Studies: Lab Studies 03/29/17 03/29/17 03/29/17 Range/Units 04:38 04:38 04:38 WBC 12.1 H (4.8-10.8) K/uL RBC 3.22 L (3.80-5.20) Mil/uL Hgb 9.3 L (11.0-16.0) g/dL Hct 28.6 L (34.0-47.0) % MCV 88.6 (81.0-99.0) fL MCH 28.8 (27.0-31.0) pg MCHC 32.5 L (33.0-37.0) g/dL RDW 18.8 H (11.5-14.5) % Plt Count 39 L (130-400) K/uL MPV 9.7 (7.2-11.7) fL Neut % (Auto) 84.4 H (50.0-75.0) % Lymph % (Auto) 2.4 L (20.0-40.0) % [place] % (Auto) 12.9 H (0.0-10.0) % Eos % (Auto) 0.0 (0.0-4.0) % Baso % (Auto) 0.3 (0.0-2.0) % Neut # 10.2 H (1.8-7.0) K/uL Lymph # 0.3 L (1.0-4.3) K/uL [place] # 1.6 H (0.0-0.8) K/uL Eos # 0.0 (0.0-0.7) K/uL Baso # 0.0 (0.0-0.2) K/uL Neutrophils % (Manual) 86 H (50-75) % Lymphocytes % (Manual) 3 L (20-40) % Monocytes % (Manual) 11 H (0-10) % Platelet Estimate Markedly decreased L (NORMAL) Polychromasia Slight Anisocytosis (manual) Moderate Rouleaux Slight Sodium 129 L (132-148) mmol/L Potassium 4.6 (3.6-5.2) mmol/L Chloride 99 (98-107) mmol/L Carbon Dioxide 29 (22-30) mmol/L Anion Gap 6 L (10-20) BUN 16 (7-17) mg/dL Creatinine 0.5 L (0.7-1.2) mg/dL Est GFR ( Amer) > 60 Est GFR (Non-Af Amer) > 60 Random Glucose 118 H (65-105) mg/dL Calcium 7.4 L (8.6-10.4) mg/dl Phosphorus 3.4 (2.5-4.5) mg/dL Magnesium 1.4 L (1.6-2.3) mg/dL Total Bilirubin 0.6 (0.2-1.3) mg/dL AST 34 (14-36) U/L ALT 49 (9-52) U/L Alkaline Phosphatase 136 H (38-126) U/L Total Creatine Kinase < 20 L (30-135) U/L CK-MB (Mass) 5.64 H (0.0-3.38) ng/mL Troponin I 0.2650 H* (0.00-0.120) ng/mL Total Protein 5.3 L (6.3-8.3) g/dL Albumin 2.1 L (3.5-5.0) g/dL Globulin 3.3 (2.2-3.9) gm/dL Albumin/Globulin Ratio 0.6 L (1.0-2.1) Laboratory Results - last 24 hr 03/29/17 03/29/17 03/29/17 04:38 04:38 04:38 WBC 12.1 H RBC 3.22 L Hgb 9.3 L Hct 28.6 L MCV 88.6 MCH 28.8 MCHC 32.5 L RDW 18.8 H Plt Count 39 L MPV 9.7 Neut % (Auto) 84.4 H Lymph % (Auto) 2.4 L [place] % (Auto) 12.9 H Eos % (Auto) 0.0 Baso % (Auto) 0.3 Neut # 10.2 H Lymph # 0.3 L [place] # 1.6 H Eos # 0.0 Baso # 0.0 Neutrophils % (Manual) 86 H Lymphocytes % (Manual) 3 L Monocytes % (Manual) 11 H Platelet Estimate Markedly decreased L Polychromasia Slight Anisocytosis (manual) Moderate Rouleaux Slight Sodium 129 L Potassium 4.6 Chloride 99 Carbon Dioxide 29 Anion Gap 6 L BUN 16 Creatinine 0.5 L Est GFR ( Amer) > 60 Est GFR (Non-Af Amer) > 60 Random Glucose 118 H Calcium 7.4 L Phosphorus 3.4 Magnesium 1.4 L Total Bilirubin 0.6 AST 34 ALT 49 Alkaline Phosphatase 136 H Total Creatine Kinase < 20 L CK-MB (Mass) 5.64 H Troponin I 0.2650 H* Total Protein 5.3 L Albumin 2.1 L Globulin 3.3 Albumin/Globulin Ratio 0.6 L EKG/Cardiology Studies: Cardiology / EKG Studies 03/29/17 04:10 EKG [ELECTROCARDIOGRAM] Stat Comment: Mode Of Transportation: Reason For Exam: chest pain, sob 03/29/17 09:19 EKG [ELECTROCARDIOGRAM] Stat Comment: Mode Of Transportation: Reason For Exam: sob, Critical Care Progress Note - Nutrition Nutrition: Nutrition Category Date Time Status Heart Healthy Diet [DIET] Diets 03/27/17 Lunch Active Attending/Attestation - Attestation I have personally seen and examined this patient.: Yes I have fully participated in the care of the patient.: Yes I have reviewed all pertinent clinical information: Yes Notes (Text): Assessment/Plan Multilobar infiltrate, needing bipap, on 100% fio2 spo2 100%, h/o lupus on steroids, h/o thrombocytopenia, recent febrile illness, with severe anemia and electrolyte imbalances s/p prbc and replacement, chronic leg edema W/u negative for dvt, pe, CTA multilobar infiltrate alvelolar and interstitial DD of fungal, bact, flu, pcp, lupus pneumonitis Continue Bipap, abg retrial, aztreonam, doxycycline, vanco, diflucan, ID consult , w/u for pna, continue steroids, spoke to the 2 sons at the bed side.
[2017-03-29] MEDS ORDERED: Magnesium Sulfate 1 gm in D5W 1 GM/100 ML BAG IVPB ONE (12:00)
--- NOTE | 2017-03-29 15:23 | RAD ---
HISTORY: short of breath, wheeze, crackles COMPARISON: Chest x-ray performed 03/26/17 at 1427 hours TECHNIQUE: Chest, one view. FINDINGS: Interval removal of left IJ approach central venous catheter. LUNGS: Diffuse confluent patchy consolidative opacities throughout bilateral lung graves, increased since prior study, right greater than left. PLEURA: Probable small bilateral pleural effusions. No definite pneumothorax . CARDIOVASCULAR: Cardiomegaly. OSSEOUS STRUCTURES: Degenerative changes. VISUALIZED UPPER ABDOMEN: Unremarkable. OTHER FINDINGS: None. IMPRESSION: Diffuse confluent patchy consolidative opacities throughout bilateral lung graves, increased since prior study, right greater than left. Probable small bilateral pleural effusions. Cardiomegaly.
--- NOTE | 2017-03-29 15:29 | VASCLAB ---
PROCEDURE: Upper Extremity Venous Duplex Exam HISTORY: short of breath PRIORS: None. TECHNIQUE: Bilateral upper extremity, internal jugular, subclavian, axillary, brachial, ulnar, radial, basilic and upper cephalic veins were evaluated. Flow was assessed with color Doppler, compressibility, assessment of phasic flow and augmentation response. Report prepared by SINGH Branch, RVT FINDINGS: RIGHT: 1. Internal Jugular: 1.1. Compressibility - Fully compressible: Thrombus - None : Flow - Phasic: Augmentation -Normal: Reflux - None. 2. Subclavian: 2.1. Compressibility - Fully compressible: Thrombus - None : Flow - Phasic: Augmentation -Normal: Reflux - None. 3. Axillary: 3.1. Compressibility - Fully compressible: Thrombus - None : Flow - Phasic: Augmentation -Normal: Reflux - None. 4. Brachial: 4.1. Compressibility - Fully compressible: Thrombus - None: Flow - Phasic: Augmentation -Normal: Reflux - None. 5. Ulnar: 5.1. Compressibility - Fully compressible: Thrombus - None: Flow - Phasic: Augmentation -Normal: Reflux - None. 6. Radial: 6.1. Compressibility - Fully compressible: Thrombus - None: Flow - Phasic: Augmentation - Normal: Reflux - None. 7. Cephalic: 7.1. Compressibility - Fully compressible: Thrombus - None: Flow - Phasic: Augmentation -Normal: Reflux - None. 8. Basilic: 8.1. Compressibility - Fully compressible: Thrombus - None: Flow - Phasic: Augmentation -Normal: Reflux - None. LEFT: 1. Internal Jugular: 1.1. Compressibility - Fully compressible: Thrombus - None : Flow - Phasic: Augmentation -Normal: Reflux - None. 2. Subclavian: 2.1. Compressibility - Fully compressible: Thrombus - None : Flow - Phasic: Augmentation -Normal: Reflux - None. 3. Axillary: 3.1. Compressibility - Fully compressible: Thrombus - None : Flow - Phasic: Augmentation -Normal: Reflux - None. 4. Brachial: 4.1. Compressibility - Fully compressible: Thrombus - None: Flow - Phasic: Augmentation -Normal: Reflux - None. 5. Ulnar: 5.1. Compressibility - Fully compressible: Thrombus - None: Flow - Phasic: Augmentation -Normal: Reflux - None. 6. Radial: 6.1. Compressibility - Fully compressible: Thrombus - None: Flow - Phasic: Augmentation - Normal: Reflux - None. 7. Cephalic: 7.1. Compressibility - Fully compressible: Thrombus - None: Flow - Phasic: Augmentation -Normal: Reflux - None. 8. Basilic: 8.1. Compressibility - Fully compressible: Thrombus - None: Flow - Phasic: Augmentation -Normal: Reflux - None. OTHER FINDINGS: bilateral upper arm cephalic veins are diminutive in size. IMPRESSION: Right: No evidence of vein thrombosis of the right upper extremity with excellent venous flow. Normal valve function noted of the right side. Left: No evidence of vein thrombosis of the left upper extremity with excellent venous flow. Normal valve function noted of the left side.
--- NOTE | 2017-03-29 15:30 | VASCLAB ---
PROCEDURE: Lower Extremity Venous Duplex Exam. HISTORY: short of breath PRIORS: None. TECHNIQUE: Bilateral common femoral, femoral, popliteal and posterior tibial, peroneal and great saphenous veins were evaluated. Flow was assessed with color Doppler, compressibility, assessment of phasic flow and augmentation response. Report prepared by SINGH Branch, RVT FINDINGS: RIGHT: 1. Common Femoral Vein: 1.1. Compressibility - Fully compressible: Thrombus - None : Flow - Phasic: Augmentation -Normal: Reflux - None. 2. Femoral Vein: 2.1. Compressibility - Fully compressible: Thrombus - None : Flow - Phasic: Augmentation -Normal: Reflux - None. 3. Popliteal Vein: 3.1. Compressibility - Fully compressible: Thrombus - None : Flow - Phasic: Augmentation -Normal: Reflux - None. 4. Posterior Tibial Vein: 4.1. Compressibility - : Thrombus - : Flow - : Augmentation -: Reflux - . 5. Peroneal Vein: 5.1. Compressibility - : Thrombus - : Flow - : Augmentation -: Reflux - . 6. Great Saphenous Vein: 6.1. Compressibility - Fully compressible: Thrombus - None: Flow - Phasic: Augmentation - Normal: Reflux - None. LEFT: 1. Common Femoral Vein: 1.1. Compressibility - Fully compressible: Thrombus - None: Flow - Phasic: Augmentation -Normal: Reflux - None. 2. Femoral Vein: 2.1. Compressibility - Fully compressible: Thrombus - None: Flow - Phasic: Augmentation -Normal: Reflux - None. 3. Popliteal Vein: 3.1. Compressibility - Fully compressible: Thrombus - None : Flow - Phasic: Augmentation -Normal: Reflux - None. 4. Posterior Tibial Vein: 4.1. Compressibility - : Thrombus - : Flow - : Augmentation -: Reflux - . 5. Peroneal Vein: 5.1. Compressibility - : Thrombus - : Flow - : Augmentation -: Reflux - . 6. Great Saphenous Vein: 6.1. Compressibility - Fully compressible: Thrombus - None: Flow - Phasic: Augmentation - Normal: Reflux - None. OTHER FINDINGS: Technically difficult and limited study due to severe swelling and patient intolerance to compressions. Due to severe swelling at the calves, bilateral posterior tibial and peroneal veins were not visualized. IMPRESSION: Right: No evidence of deep or superficial vein thrombosis of the right lower extremity. Normal valve function noted of the right side. Left: No evidence of deep or superficial vein thrombosis of the left lower extremity. Normal valve function noted of the left side.
[2017-03-29] MEDS ORDERED: Iodixanol 320 MG/ML 100 ML BOTTLE IV ONE (15:43)
--- NOTE | 2017-03-29 16:36 | CT ---
PROCEDURE: CT Chest with contrast (Pulmonary Angiogram) HISTORY: short of breath COMPARISON: None available. TECHNIQUE: Axial computed tomography images were obtained of the chest in the pulmonary arterial phase of enhancement. Coronal and sagittal reformatted images were created and reviewed. Intravenous contrast dose: 100 ML VISIPAQUE 320 Radiation dose: Total exam DLP = 480.77 mGy-cm. This CT exam was performed using one or more of the following dose reduction techniques: Automated exposure control, adjustment of the mA and/or kV according to patient size, and/or use of iterative reconstruction technique. FINDINGS: PULMONARY ARTERIES: Unremarkable. No pulmonary embolism. AORTA: No acute findings. No thoracic aortic aneurysm. LUNGS: THERE IS EXTENSIVE DIFFUSE INTERSTITIAL/ ALVEOLAR OPACITY INVOLVING ALMOST THE ENTIRE RIGHT LUNG WELL MOST OF THE LEFT LUNG, SPARING THE SUPERIOR SEGMENT LEFT LOWER LOBE AND APICAL POSTERIOR SEGMENT LEFT UPPER LOBE. IN ADDITION, THERE ARE MULTIFOCAL AREAS OF EDER CONSOLIDATION BILATERALLY. THE FINDINGS ARE NONSPECIFIC. THERE IS NO EVIDENCE OF CAVITATION. NO DISCRETE MASS IS IDENTIFIED. PLEURAL SPACES: Unremarkable. No effusion or pneuomothorax. HEART: Unremarkable. No cardiomegaly. No significant pericardial effusion. LYMPH NODES: No lymphadenopathy. BONES, CHEST WALL: Unremarkable. No fracture or destructive lesion OTHER FINDINGS: There is dilatation of the main pulmonary artery up to 3.3 cm diameter. This may correlate with pulmonary arterial hypertension. Mild circumferential mural thickening of distal esophagus, nonspecific. Cannot rule out neoplastic etiology. Consider evaluation with endoscopy. Right upper pole renal cortical cyst, 2.3 cm diameter. IMPRESSION: No evidence of pulmonary arterial embolism. Extensive diffuse bilateral interstitial/ alveolar infiltrate with superimposed extensive multifocal eder consolidation. Dilated main pulmonary artery. This may correlate with pulmonary arterial hypertension. Additional minor findings as above.
[2017-03-29] MEDS ORDERED: Fluconazole IV 400mg/200ml NS 200 ML IVPB STA (16:51)
--- NOTE | 2017-03-29 18:31 | CP.PCM.CON ---
History of Present Illness - History of Present Illness History of Present Illness: I was asked to see patient by Dr. Pillai. Patient is a 61 year old female with a history of SLE, hypertension who presents with dyspnea, cough and fever. The patient has had previous intermittent lupus flare and has been hospitalized. About one week ago she could not stand, and her son brought her to the hospital. She has been coughing and complained of fever. She has been admitted for further management. She was brought to the ICU for chest pain, dypsnea and elevated troponin. She was started on heparin drip for elevated troponin. She is currently in ICU on BIPAP. She appears comfortable. Her sons are at the bedside Review of Systems - Constitutional Constitutional: Malaise, Weakness - EENT Eyes: absent: As Per HPI, Blind Spots, Blurred Vision, Change in Vision, Decreased Night Vision, Diplopia, Discharge, Dry Eye, Exophthalmos, Floaters, Irritation, Itchy Eyes, Loss of Peripheral Vision, Pain, Photophobia, Requires Corrective Lenses, Sees Flashes, Spots in Vision, Tunnel Vision, Other Visual Disturbances, Loss of Vision, Other Ears: absent: As Per HPI, Decreased Hearing, Ear Discharge, Ear Pain, Tinnitus, Abnormal Hearing, Disequilibrium, Dizziness, Other Nose/Mouth/Throat: absent: As Per HPI, Epistaxis, Nasal Congestion, Nasal Discharge, Nasal Obstruction, Nasal Trauma, Nose Pain, Post Nasal Drip, Sinus Pain, Sinus Pressure, Bleeding Gums, Change in Voice, Dental Pain, Dry Mouth, Dysphagia, Halitosis, Hoarsness, Lip Swelling, Mouth Lesions, Mouth Pain, Odynophagia, Sore Throat, Throat Swelling, Tongue Swelling, Facial Pain, Neck Pain, Neck Mass, Other - Breasts Breasts: absent: As Per HPI, Change in Shape, Mass, Pain, Nipple Discharge, Nipple Inversion, Skin Changes, Swelling, Other - Cardiovascular Cardiovascular: Chest Pain, Dyspnea - Respiratory Respiratory: Cough, Dyspnea, Chest Congestion - Gastrointestinal Gastrointestinal: absent: As Per HPI, Abdominal Pain, Belching, Bloating, Change in Bowel Habits, Change in Stool Character, Coffee Ground Emesis, Constipation, Cramping, Diarrhea, Dyspepsia, Dysphagia, Early Satiety, Excessive Flatus, Fecal Incontinence, Heartburn, Hematemesis, Hematochezia, Loose Stools, Melena, Nausea, Odynophagia, Temesmus, Vomiting, Other - Genitourinary Genitourinary: absent: As Per HPI, Change in Urinary Stream, Difficulty Urinating, Dysuria, Flank Pain, Hematuria, Pyuria, Nocturia, Urinary Incontinence, Urinary Frequency, Urinary Hesitance, Urinary Urgency, Voiding Freq/Small Amts, Freq UTI, Hx Renal/Bladder Calculi, Hx /Renal Surgery, Bladder Distension, Other - Musculoskeletal Musculoskeletal: absent: As Per HPI, Abnormal Gait, Arthralgias, Atrophy, Back Pain, Deformity, Joint Swelling, Limited Range of Motion, Loss of Height, Muscle Cramps, Muscle Weakness, Myalgias, Neck Pain, Numbness, Radiating Pain into Limb, Stiffness, Tingling, Other - Integumentary Integumentary: absent: As Per HPI, Acne, Alopecia, Bleeding Lesions, Change in Hair, Change in Nails, Change in Pigmentation, Changing Lesions, Dry Skin, Erythema, Furuncle, Hirsutism, Lesions, New Lesions, Non-Healing Lesions, Photosensitivity, Pruritus, Rash, Skin Pain, Skin Ulcer, Sores, Striae, Swelling , Unusual Bruising, Wounds, Jaundice, Other - Neurological Neurological: absent: As Per HPI, Abnormal Gait, Abnormal Hearing, Abnormal Movements, Abnormal Speech, Behavioral Changes, Burning Sensations, Confusion, Convulsions, Disequilibrium, Dizziness, Numbness, Focal Weakness, Frequent Falls , Headaches, Lack of Coordination, Loss of Vision, Memory Loss, Paresthesias, Radicular Pain, Restless Legs, Sensory Deficit, Syncope, Tingling, Tremor, Vertigo, Weakness, Other Visual Disturbances, Other - Psychiatric Psychiatric: absent: As Per HPI, Abnormal Sleep Pattern, Anhedonia, Anxiety, Auditory Hallucinations, Behavioral Changes, Change in Appetite, Change in Libido, Confusion, Depression, Difficulty Concentrating, Hallucinations, Homicidal Ideation, Hopelessness, Irritability, Memory Loss, Mood Swings, Panic Attacks, Paranoia, Suicidal Ideation, Visual Hallucinations, Tactile Hallucinations, Other - Endocrine Endocrine: absent: As Per HPI, Change in Body Appearance, Change in Libido, Cold Intolorance, Deepening of Voice, Excessive Sweating, Fatigue, Flushing, Heat Intolorance, Increase in Ring/Shoe/Hat Size, Palpitations, Polydipsia, Polyphagia, Polyuria, Other - Hematologic/Lymphatic Hematologic: absent: As Per HPI, Easy Bleeding, Easy Bruising, Lymphadenopathy, Other Past Patient History - Past Medical History & Family History Past Medical History?: Yes - Past Social History Smoking Status: Former Smoker Chewing Tobacco Use: No Cigar Use: No Alcohol: None Drugs: Denies Home Situation {Lives}: With Family Domestic Violence: Negative - CARDIAC Hx Cardiac Disorders: Yes Hx Congestive Heart Failure: Yes Hx Hypertension: Yes - PULMONARY Hx Respiratory Disorders: No - NEUROLOGICAL Hx Neurological Disorder: No - HEENT Hx HEENT Problems: No - RENAL Hx Chronic Kidney Disease: No - ENDOCRINE/METABOLIC Hx Endocrine Disorders: Yes Hx Systemic Lupus Erythematosus: Yes - HEMATOLOGICAL/ONCOLOGICAL Hx Blood Disorders: No - INTEGUMENTARY Hx Dermatological Problems: Yes Other/Comment: multiple open wound bilateral buttocks and right thigh - MUSCULOSKELETAL/RHEUMATOLOGICAL Hx Arthritis: Yes Hx Rheumatoid Arthritis: Yes - GASTROINTESTINAL Hx Gastrointestinal Disorders: No - GENITOURINARY/GYNECOLOGICAL Hx Genitourinary Disorders: No - PSYCHIATRIC Hx Psychophysiologic Disorder: No Hx Substance Use: No - SURGICAL HISTORY Hx Surgeries: No - ANESTHESIA Hx Anesthesia: No Meds Allergies/Adverse Reactions: Allergies Allergy/AdvReac Type Severity Reaction Status Date / Time Penicillins Allergy Verified 03/19/17 23:45 Sulfa (Sulfonamide Allergy Verified 03/19/17 23:45 Antibiotics) - Medications Medications: Current Medications Clopidogrel Bisulfate (Plavix) 75 mg PO DAILY [facility] Last Admin: 03/29/17 10:07 Dose: 75 mg Emollient Ointment (Vaseline Oint) 0.5 gm TOP Q4 [facility] Last Admin: 03/29/17 11:47 Dose: 0.5 gm Famotidine (Pepcid) 20 mg PO BID [facility] Last Admin: 03/29/17 10:07 Dose: 20 mg Gabapentin (Neurontin) 400 mg PO BID [facility] Last Admin: 03/29/17 10:07 Dose: 400 mg Hydroxychloroquine Sulfate (Plaquenil) 200 mg PO DAILY [facility] Last Admin: 03/29/17 10:07 Dose: 200 mg Aztreonam 1 gm/ Dextrose 100 mls @ 100 mls/hr IVPB Q8H [facility] Last Admin: 03/29/17 10:45 Dose: 100 mls/hr Heparin Sodium/Sodium Chloride (Heparin 21456 Units/250ml 1/2 Normal Saline) 25 ,000 units in 250 mls @ 0 mls/hr IV .Q0M PRN; Protocol; Per Protocol PRN Reason: PROTOCOL Doxycycline Hyclate 100 mg/ (Sodium Chloride) 100 mls @ 100 mls/hr IVPB Q12H [facility] Fluconazole (Diflucan Iv 400mg/200ml Ns) 200 mls @ 100 mls/hr IVPB STAT STA Stop: 03/29/17 18:50 Fluconazole (Diflucan Iv 200 Mg/100 Ml Ns) 100 mls @ 100 mls/hr IVPB DAILY [facility] Methylprednisolone (Solu-Medrol) 40 mg IVP Q12 [facility] Last Admin: 03/29/17 10:08 Dose: 40 mg Ondansetron HCl (Zofran Inj) 4 mg IVP Q6H PRN PRN Reason: Nausea/Vomiting Last Admin: 03/20/17 15:01 Dose: 4 mg Rosuvastatin Calcium (Crestor) 20 mg PO HS [facility] Last Admin: 03/28/17 21:52 Dose: 20 mg Vitamin A (Vitamin A & D Oint Ud Foilpak) 0.5 ea TOP Q4 [facility] Last Admin: 03/29/17 11:47 Dose: 0.5 ea Physical Exam - Constitutional Appears: Non-toxic - Head Exam Head Exam: NORMAL INSPECTION - Eye Exam Eye Exam: Normal appearance - ENT Exam ENT Exam: Mucous Membranes Moist - Neck Exam Neck exam: Positive for: Full Rom - Respiratory Exam Respiratory Exam: Decreased Breath Sounds, Rhonchi - Cardiovascular Exam Cardiovascular Exam: Tachycardia, REGULAR RHYTHM - GI/Abdominal Exam GI & Abdominal Exam: Normal Bowel Sounds - Rectal Exam Rectal Exam: Deferred - Extremities Exam Extremities exam: Negative for: pedal edema - Back Exam Back exam: NORMAL INSPECTION - Neurological Exam Neurological exam: Alert - Psychiatric Exam Psychiatric exam: Normal Affect - Skin Skin Exam: Normal Color Results - Vital Signs Recent Vital Signs: Last Vital Signs Temp 98.2 F 03/29/17 16:00 Pulse 109 H 03/29/17 17:00 Resp 30 H 03/29/17 17:00 BP 120/76 03/29/17 17:00 Pulse Ox 99 03/29/17 17:00 - Labs Result Diagrams: 03/29/17 04:38 03/29/17 04:38 Labs: Laboratory Results - last 24 hr 03/29/17 03/29/17 03/29/17 04:38 04:38 04:38 WBC 12.1 H RBC 3.22 L Hgb 9.3 L Hct 28.6 L MCV 88.6 MCH 28.8 MCHC 32.5 L RDW 18.8 H Plt Count 39 L MPV 9.7 Neut % (Auto) 84.4 H Lymph % (Auto) 2.4 L Gulf % (Auto) 12.9 H Eos % (Auto) 0.0 Baso % (Auto) 0.3 Neut # 10.2 H Lymph # 0.3 L Gulf # 1.6 H Eos # 0.0 Baso # 0.0 Neutrophils % (Manual) 86 H Lymphocytes % (Manual) 3 L Monocytes % (Manual) 11 H Platelet Estimate Markedly decreased L Polychromasia Slight Anisocytosis (manual) Moderate Rouleaux Slight Sodium 129 L Potassium 4.6 Chloride 99 Carbon Dioxide 29 Anion Gap 6 L BUN 16 Creatinine 0.5 L Est GFR ( Amer) > 60 Est GFR (Non-Af Amer) > 60 Random Glucose 118 H Calcium 7.4 L Phosphorus 3.4 Magnesium 1.4 L Total Bilirubin 0.6 AST 34 ALT 49 Alkaline Phosphatase 136 H Total Creatine Kinase < 20 L CK-MB (Mass) 5.64 H Troponin I 0.2650 H* Total Protein 5.3 L Albumin 2.1 L Globulin 3.3 Albumin/Globulin Ratio 0.6 L - EKG Data EKG Interpreted by: Myself EKG shows normal: Sinus rhythm Rate: Tachycardia Assessment & Plan (1) Elevated troponin Assessment and Plan: likely demand ischemia. Previous echocardiogram reveals normal left ventricular function. The patient is currently asymptomatic. Repeat troponin. If normalizes can consider d/c heparin. add antiplatelet therapy. Status: Acute
[2017-03-29 20:07] LABS: CK-MB 3.8 ng/mL (0.0-3.38); TROPONIN I 0.157 ng/mL (0.00-0.120)
[2017-03-29 22:38] LABS: LEGIONELLA AG URINE NEGATIVE (NEGATIVE)
[2017-03-29 22:39] LABS: INFLUENZA A B NEGATIVE FOR FLU A/B (NEGATIVE)
[2017-03-30] MEDS: Petrolatum Oint Foilpak (5 gm) TOP SCH
[2017-03-30] MEDS: Aztreonam 1 GM in Dextrose 5% In Water 100 ML IVPB SCH (00:50)
[2017-03-30] MEDS: Vitamins A & D Oint UD Foilpak TOP SCH ×6 (06:00→21:08)
[2017-03-30 07:00] LABS: ALB/GLOB RATIO 0.8 (1.0-2.1); ALBUMIN 2.2 g/dL (3.5-5.0); ALT/SGPT 42 U/L (9-52); AST/SGOT 46 U/L (14-36); BLOOD UREA NITROGEN 16 mg/dL (7-17); CALCIUM 7.5 mg/dl (8.6-10.4); GFR AFRICAN-AMERICAN > 60; GFR NON-AFRICAN AMERICAN > 60; MAGNESIUM 1.6 mg/dL (1.6-2.3)
[2017-03-30 07:13] LABS: BASO % 0.3 % (0.0-2.0); EOS % 0.1 % (0.0-4.0); HEMOGLOBIN 8.7 g/dL (11.0-16.0); LYMPH # 0.2 K/uL (1.0-4.3); LYMPH % 1.6 % (20.0-40.0); MEAN CELL VOLUME 88.1 fL (81.0-99.0); MEAN CORPUSCULAR HEMOGLOBIN 29.4 pg (27.0-31.0); MEAN CORPUSCULAR HGB CONC 33.3 g/dL (33.0-37.0); MEAN PLATELET VOLUME 11.1 fL (7.2-11.7); NEUT # 10.2 K/uL (1.8-7.0); PLATELET COUNT 44 K/uL (130-400); RBC 2.97 Mil/uL (3.80-5.20); RED CELL DISTRIBUTION WIDTH 18.5 % (11.5-14.5); WHITE BLOOD COUNT 11.5 K/uL (4.8-10.8)
--- NOTE | 2017-03-30 07:55 | CP.CCUPN ---
<Thais Luz - Last Filed: 03/30/17 15:20> CCU Subjective - Physician Review Events Since Last Encounter (Free Text): 03/30/17 12:37 Patient seen and examined at bedside. Patient feeling better today but admits to continued difficulty breathing. Patient denies chest pain, abdominal pain, LE pain. Subjective (Free Text): 03/30/17 07:53 CCU Objective - Vital Signs / Intake & Output Vital Signs (Last 4 hours): Vital Signs Temp Pulse Resp BP Pulse Ox 03/30/17 07:01 112/75 03/30/17 07:00 115 H 46 H 94 L 03/30/17 06:01 116 H 39 H 110/75 96 03/30/17 06:00 116 H 39 H 96 03/30/17 05:39 118 H 03/30/17 05:00 117 H 43 H 121/79 97 03/30/17 04:01 117 H 36 H 111/76 97 03/30/17 04:00 98.3 F 116 H 39 H 98 Intake and Output (Last 8hrs): Intake & Output 03/29/17 03/30/17 03/30/17 22:59 06:59 14:59 Intake Total 300 200 0 Output Total 350 455 Balance -50 -255 0 Weight 201 lb 11.567 oz Intake: Intake, IV Amount 300 200 0 Left Antecubital Mid-line 200 0 Left Internal Jugular 300 Output: Urine 350 455 Urine, Voided 350 455 - Physical Exam Head: Positive for: Atraumatic, Normocephalic Pupils: Positive for: PERRL Extroacular Muscles: Positive for: EOMI Conjunctiva: Positive for: Normal Mouth: Positive for: Moist Mucous Membranes Neck: Positive for: Normal Range of Motion Respiratory/Chest: Positive for: Accessory Muscle Use, Wheezes, Rales, Other ( BiPAP). Negative for: Rhonchi Cardiovascular: Positive for: Normal S1, S2, Tachycardic Abdomen: Positive for: Normal Bowel Sounds. Negative for: Tenderness, Distention, Peritoneal Signs Upper Extremity: Positive for: Normal Inspection Lower Extremity: Positive for: Edema. Negative for: Tenderness Neurological: Positive for: GCS=15, Speech Normal Skin: Positive for: Warm, Dry. Negative for: Rashes Psychiatric: Positive for: Alert, Oriented x 3, Normal Insight, Normal Concentration - Medications Active Medications: Active Medications Generic Name Dose Route Start Last Admin Trade Name Freq PRN Reason Stop Dose Admin Clopidogrel Bisulfate 75 mg 03/23/17 10:00 03/29/17 10:07 Plavix PO 75 mg DAILY IMAN Administration Famotidine 20 mg 03/23/17 10:00 03/29/17 19:00 Pepcid PO Not Given BID IMAN Gabapentin 400 mg 03/23/17 10:00 03/29/17 17:00 Neurontin PO Not Given BID IMAN Hydroxychloroquine Sulfate 200 mg 03/28/17 10:00 03/29/17 10:07 Plaquenil PO 200 mg DAILY IMAN Administration Aztreonam 1 gm/ Dextrose 100 mls @ 100 mls/hr 03/28/17 01:30 03/30/17 00:50 IVPB 100 mls/hr Q8H IMAN Administration Heparin Sodium/Sodium Chloride 25,000 units in 250 mls @ 0 mls/hr 03/29/17 05: 16 Heparin 91561 Units/250ml 1/2 Normal Saline IV .Q0M PRN PROTOCOL Protocol Per Protocol Doxycycline Hyclate 100 mg/ 100 mls @ 100 mls/hr 03/29/17 14:00 03/30/17 02: 00 Sodium Chloride IVPB 100 mls/hr Q12H IMAN Administration Fluconazole 100 mls @ 100 mls/hr 03/30/17 10:00 Diflucan Iv 200 Mg/100 Ml Ns IVPB DAILY IMAN Methylprednisolone 40 mg 03/20/17 11:15 03/29/17 23:05 Solu-Medrol IVP 40 mg Q12 IMAN Administration Ondansetron HCl 4 mg 03/20/17 15:00 03/20/17 15:01 Zofran Inj IVP 4 mg Q6H PRN Administration Nausea/Vomiting Rosuvastatin Calcium 20 mg 03/23/17 22:00 03/29/17 22:34 Crestor PO Not Given HS IMAN Vitamin A 0.5 ea 03/29/17 00:00 03/30/17 06:00 Vitamin A & D Oint Ud Foilpak TOP Not Given Q4 IMAN - Patient Studies Lab Studies: Lab Studies 03/30/17 03/30/17 03/29/17 Range/Units 06:34 06:34 Unknown WBC 11.5 H (4.8-10.8) K/uL RBC 2.97 L (3.80-5.20) Mil/uL Hgb 8.7 L (11.0-16.0) g/dL Hct 26.2 L (34.0-47.0) % MCV 88.1 (81.0-99.0) fL MCH 29.4 (27.0-31.0) pg MCHC 33.3 (33.0-37.0) g/dL RDW 18.5 H (11.5-14.5) % Plt Count 44 L (130-400) K/uL MPV 11.1 (7.2-11.7) fL Neut % (Auto) 89.0 H (50.0-75.0) % Lymph % (Auto) 1.6 L (20.0-40.0) % [place] % (Auto) 9.0 (0.0-10.0) % Eos % (Auto) 0.1 (0.0-4.0) % Baso % (Auto) 0.3 (0.0-2.0) % Neut # 10.2 H (1.8-7.0) K/uL Lymph # 0.2 L (1.0-4.3) K/uL [place] # 1.0 H (0.0-0.8) K/uL Eos # 0.0 (0.0-0.7) K/uL Baso # 0.0 (0.0-0.2) K/uL Sodium 129 L (132-148) mmol/L Potassium 4.6 (3.6-5.2) mmol/L Chloride 99 (98-107) mmol/L Carbon Dioxide 27 (22-30) mmol/L Anion Gap 8 L (10-20) BUN 16 (7-17) mg/dL Creatinine 0.4 L (0.7-1.2) mg/dL Est GFR ( Amer) > 60 Est GFR (Non-Af Amer) > 60 Random Glucose 87 (65-105) mg/dL Calcium 7.5 L (8.6-10.4) mg/dl Phosphorus 3.7 (2.5-4.5) mg/dL Magnesium 1.6 (1.6-2.3) mg/dL Total Bilirubin 0.9 (0.2-1.3) mg/dL AST 46 H D (14-36) U/L ALT 42 (9-52) U/L Alkaline Phosphatase 150 H (38-126) U/L Total Creatine Kinase (30-135) U/L CK-MB (Mass) (0.0-3.38) ng/mL Troponin I (0.00-0.120) ng/mL NT-Pro-B Natriuret Pep (0-900) pg/mL Total Protein 4.7 L (6.3-8.3) g/dL Albumin 2.2 L (3.5-5.0) g/dL Globulin 2.5 (2.2-3.9) gm/dL Albumin/Globulin Ratio 0.8 L (1.0-2.1) Influenza Typ A,B (EIA) Negative for flu a/b (NEGATIVE) Ur L.pneumophila Ag Negative (NEGATIVE) 03/29/17 Range/Units 19:32 WBC (4.8-10.8) K/uL RBC (3.80-5.20) Mil/uL Hgb (11.0-16.0) g/dL Hct (34.0-47.0) % MCV (81.0-99.0) fL MCH (27.0-31.0) pg MCHC (33.0-37.0) g/dL RDW (11.5-14.5) % Plt Count (130-400) K/uL MPV (7.2-11.7) fL Neut % (Auto) (50.0-75.0) % Lymph % (Auto) (20.0-40.0) % [place] % (Auto) (0.0-10.0) % Eos % (Auto) (0.0-4.0) % Baso % (Auto) (0.0-2.0) % Neut # (1.8-7.0) K/uL Lymph # (1.0-4.3) K/uL [place] # (0.0-0.8) K/uL Eos # (0.0-0.7) K/uL Baso # (0.0-0.2) K/uL Sodium (132-148) mmol/L Potassium (3.6-5.2) mmol/L Chloride (98-107) mmol/L Carbon Dioxide (22-30) mmol/L Anion Gap (10-20) BUN (7-17) mg/dL Creatinine (0.7-1.2) mg/dL Est GFR ( Amer) Est GFR (Non-Af Amer) Random Glucose (65-105) mg/dL Calcium (8.6-10.4) mg/dl Phosphorus (2.5-4.5) mg/dL Magnesium (1.6-2.3) mg/dL Total Bilirubin (0.2-1.3) mg/dL AST (14-36) U/L ALT (9-52) U/L Alkaline Phosphatase (38-126) U/L Total Creatine Kinase 37 (30-135) U/L CK-MB (Mass) 3.80 H (0.0-3.38) ng/mL Troponin I 0.1570 H* (0.00-0.120) ng/mL NT-Pro-B Natriuret Pep 07422 H (0-900) pg/mL Total Protein (6.3-8.3) g/dL Albumin (3.5-5.0) g/dL Globulin (2.2-3.9) gm/dL Albumin/Globulin Ratio (1.0-2.1) Influenza Typ A,B (EIA) (NEGATIVE) Ur L.pneumophila Ag (NEGATIVE) Laboratory Results - last 24 hr 03/29/17 03/29/17 03/30/17 19:32 Unknown 06:34 WBC 11.5 H RBC 2.97 L Hgb 8.7 L Hct 26.2 L MCV 88.1 MCH 29.4 MCHC 33.3 RDW 18.5 H Plt Count 44 L MPV 11.1 Neut % (Auto) 89.0 H Lymph % (Auto) 1.6 L [place] % (Auto) 9.0 Eos % (Auto) 0.1 Baso % (Auto) 0.3 Neut # 10.2 H Lymph # 0.2 L [place] # 1.0 H Eos # 0.0 Baso # 0.0 Sodium Potassium Chloride Carbon Dioxide Anion Gap BUN Creatinine Est GFR ( Amer) Est GFR (Non-Af Amer) Random Glucose Calcium Phosphorus Magnesium Total Bilirubin AST ALT Alkaline Phosphatase Total Creatine Kinase 37 CK-MB (Mass) 3.80 H Troponin I 0.1570 H* NT-Pro-B Natriuret Pep 59173 H Total Protein Albumin Globulin Albumin/Globulin Ratio Influenza Typ A,B (EIA) Negative for flu a/b Ur L.pneumophila Ag Negative 03/30/17 06:34 WBC RBC Hgb Hct MCV MCH MCHC RDW Plt Count MPV Neut % (Auto) Lymph % (Auto) [place] % (Auto) Eos % (Auto) Baso % (Auto) Neut # Lymph # [place] # Eos # Baso # Sodium 129 L Potassium 4.6 Chloride 99 Carbon Dioxide 27 Anion Gap 8 L BUN 16 Creatinine 0.4 L Est GFR ( Amer) > 60 Est GFR (Non-Af Amer) > 60 Random Glucose 87 Calcium 7.5 L Phosphorus 3.7 Magnesium 1.6 Total Bilirubin 0.9 AST 46 H D ALT 42 Alkaline Phosphatase 150 H Total Creatine Kinase CK-MB (Mass) Troponin I NT-Pro-B Natriuret Pep Total Protein 4.7 L Albumin 2.2 L Globulin 2.5 Albumin/Globulin Ratio 0.8 L Influenza Typ A,B (EIA) Ur L.pneumophila Ag EKG/Cardiology Studies: Cardiology / EKG Studies 03/29/17 09:19 EKG [ELECTROCARDIOGRAM] Stat Comment: Mode Of Transportation: Reason For Exam: sob, Fingerstick Blood Sugar Results: 132 Review of Systems - Review of Systems All systems: reviewed and no additional remarkable complaints except (as per HPI ) Critical Care Progress Note - Nutrition Nutrition: Nutrition Category Date Time Status Heart Healthy Diet [DIET] Diets 03/27/17 Lunch Active Assessment/Plan - Assessment and Plan (Free Text) Plan: Neuro * A&Ox3 * Neurology consulted (Steve) - recs appreciated * Gabapentin 400 mg PO BID Cardio * Tachycardia * BP stable * Troponin + (0.2650, 0.1570) * Plavix 75 mg PO QD * Heparin drip - consider d/c if next CATHIE negative per Dr. Medellin * Crestor 20 mg PO HS * Echo: grade 1 relaxation pattern and mild pulmonary hypertension * EKG: T Wave abnormality * BNP 95118 * UE and LE US - negative for DVT Respiratory * BiPAP * CTA: b/l interstitial/alveolar infiltrate with superimposed multifocal eder consolidation, dilated main pulmonary artery * ABG * Solu-medrol 40 mg IV Q12 Renal * I 1000 * O 1205 * Balance -205 * BUN/Cr WNL Fluids, electrolytes, nutrition * heart healthy diet * Na 129 * Ca 7.5 * Albumin 2.2 Infectious disease * afebrile * WBC 11.5 * ID consulted (Cici) - recs appreciated * Fluconazole 200 mg QD * 1g vanc Q12 * Aztreonam 1g IV Q8 * Doxy 100 IV Q12 * Mepron 1500 mg PO ACL * Tamiflu Hematology * H&H: 8.7/26.2 * Plt: 44 * Plavix 75 mg PO QD * Heparin drip - consider d/c if next CATHIE negative per Dr. Medellin * Heme/Onc consulted (Thuy) - recs appreciated * Bone marrow biopsy pending patient consent GI * AST 46 - likely med side effect * Tbili: 0.9 * Zofran PRN Endocrine * monitor blood glucose * Solu-medrol 40 mg IV Q12 Integumentary * A&D ointment * Vaseline Rheumatology * Hydroxychloroquine 200 mg PO QD * Dr. Puckett consulted - recs appreciated Prophylaxis * Pepcid 20 mg PO BID <Ann Marie Prieto M - Last Filed: 03/30/17 15:37> CCU Subjective - Physician Review Critical Care Time Spent (in minutes): 35 CCU Objective - Vital Signs / Intake & Output Vital Signs (Last 4 hours): Vital Signs Temp Pulse Resp BP Pulse Ox 03/30/17 15:01 110 H 35 H 118/81 38 L 03/30/17 14:06 110 H 03/30/17 14:01 114 H 37 H 135/88 03/30/17 13:01 111 H 38 H 116/79 96 03/30/17 12:00 98.2 F 110 H 39 H 111/79 97 03/30/17 11:49 114 H Intake and Output (Last 8hrs): Intake & Output 03/30/17 03/30/17 03/30/17 06:59 14:59 22:59 Intake Total 200 400 0 Output Total 455 350 50 Balance -255 50 -50 Weight 201 lb 11.567 oz 202 lb 6.15 oz Intake: Intake, IV Amount 200 400 Left Antecubital Mid-line 200 400 Oral 0 0 Output: Urine 455 350 50 Urine, Voided 455 350 50 - Medications Active Medications: Active Medications Generic Name Dose Route Start Last Admin Trade Name Freq PRN Reason Stop Dose Admin Atovaquone 1,500 mg 12/21/17 11:30 03/30/17 11:30 Mepron PO 1,500 mg ACL IMAN Administration Clopidogrel Bisulfate 75 mg 03/23/17 10:00 03/30/17 11:33 Plavix PO 75 mg DAILY IMAN Administration Famotidine 20 mg 03/23/17 10:00 03/30/17 11:34 Pepcid PO 20 mg BID IMAN Administration Gabapentin 400 mg 03/23/17 10:00 03/30/17 11:35 Neurontin PO 400 mg BID IMAN Administration Hydroxychloroquine Sulfate 200 mg 03/28/17 10:00 03/30/17 11:35 Plaquenil PO 200 mg DAILY IMAN Administration Doxycycline Hyclate 100 mg/ 100 mls @ 100 mls/hr 03/29/17 14:00 03/30/17 14: 00 Sodium Chloride IVPB 100 mls/hr Q12H IMAN Administration Fluconazole 100 mls @ 100 mls/hr 03/30/17 10:00 03/30/17 10:00 Diflucan Iv 200 Mg/100 Ml Ns IVPB 100 mls/hr DAILY IMAN Administration Vancomycin/Sodium Chloride 1 gm in 200 mls @ 133.333 mls/hr 03/30/17 09:30 11:00 Vancomycin 1 Gm/Ns 200 Ml IVPB 04/04/17 09:31 133.333 mls/hr Q12H IMAN Administration Aztreonam 1 gm/ Sodium 100 mls @ 100 mls/hr 03/30/17 10:30 03/30/17 11:00 Chloride IVPB 100 mls/hr Q8H IMAN Administration Metronidazole 500 mg in 100 mls @ 100 mls/hr 03/30/17 14:00 Flagyl IVPB Q8 IMAN Methylprednisolone 40 mg 03/20/17 11:15 03/30/17 11:36 Solu-Medrol IVP 40 mg Q12 IMAN Administration Ondansetron HCl 4 mg 03/20/17 15:00 03/20/17 15:01 Zofran Inj IVP 4 mg Q6H PRN Administration Nausea/Vomiting Oseltamivir Phosphate 75 mg 03/30/17 10:00 03/30/17 11:30 Tamiflu Cap PO 04/04/17 09:22 75 mg BID IMAN Administration Rosuvastatin Calcium 20 mg 03/23/17 22:00 03/29/17 22:34 Crestor PO Not Given HS IMAN Vitamin A 0.5 ea 03/29/17 00:00 03/30/17 12:00 Vitamin A & D Oint Ud Foilpak TOP 0.5 ea Q4 IMAN Administration - Patient Studies Lab Studies: Lab Studies 03/30/17 03/30/17 03/30/17 Range/Units 11:45 06:34 06:34 WBC 11.5 H (4.8-10.8) K/uL RBC 2.97 L (3.80-5.20) Mil/uL Hgb 8.7 L (11.0-16.0) g/dL Hct 26.2 L (34.0-47.0) % MCV 88.1 (81.0-99.0) fL MCH 29.4 (27.0-31.0) pg MCHC 33.3 (33.0-37.0) g/dL RDW 18.5 H (11.5-14.5) % Plt Count 44 L (130-400) K/uL MPV 11.1 (7.2-11.7) fL Neut % (Auto) 89.0 H (50.0-75.0) % Lymph % (Auto) 1.6 L (20.0-40.0) % [place] % (Auto) 9.0 (0.0-10.0) % Eos % (Auto) 0.1 (0.0-4.0) % Baso % (Auto) 0.3 (0.0-2.0) % Neut # 10.2 H (1.8-7.0) K/uL Lymph # 0.2 L (1.0-4.3) K/uL [place] # 1.0 H (0.0-0.8) K/uL Eos # 0.0 (0.0-0.7) K/uL Baso # 0.0 (0.0-0.2) K/uL Neutrophils % (Manual) 93 H (50-75) % Lymphocytes % (Manual) 2 L (20-40) % Monocytes % (Manual) 5 (0-10) % Platelet Estimate Decreased L (NORMAL) Polychromasia Slight Hypochromasia (manual) Slight Anisocytosis (manual) Slight Sodium 129 L (132-148) mmol/L Potassium 4.6 (3.6-5.2) mmol/L Chloride 99 (98-107) mmol/L Carbon Dioxide 27 (22-30) mmol/L Anion Gap 8 L (10-20) BUN 16 (7-17) mg/dL Creatinine 0.4 L (0.7-1.2) mg/dL Est GFR ( Amer) > 60 Est GFR (Non-Af Amer) > 60 POC Glucose (mg/dL) 76 (65-110) mg/dL Random Glucose 87 (65-105) mg/dL Calcium 7.5 L (8.6-10.4) mg/dl Phosphorus 3.7 (2.5-4.5) mg/dL Magnesium 1.6 (1.6-2.3) mg/dL Total Bilirubin 0.9 (0.2-1.3) mg/dL AST 46 H D (14-36) U/L ALT 42 (9-52) U/L Alkaline Phosphatase 150 H (38-126) U/L Total Creatine Kinase (30-135) U/L CK-MB (Mass) (0.0-3.38) ng/mL Troponin I (0.00-0.120) ng/mL NT-Pro-B Natriuret Pep (0-900) pg/mL Total Protein 4.7 L (6.3-8.3) g/dL Albumin 2.2 L (3.5-5.0) g/dL Globulin 2.5 (2.2-3.9) gm/dL Albumin/Globulin Ratio 0.8 L (1.0-2.1) Influenza Typ A,B (EIA) (NEGATIVE) Ur L.pneumophila Ag (NEGATIVE) 03/29/17 03/29/17 Range/Units Unknown 19:32 WBC (4.8-10.8) K/uL RBC (3.80-5.20) Mil/uL Hgb (11.0-16.0) g/dL Hct (34.0-47.0) % MCV (81.0-99.0) fL MCH (27.0-31.0) pg MCHC (33.0-37.0) g/dL RDW (11.5-14.5) % Plt Count (130-400) K/uL MPV (7.2-11.7) fL Neut % (Auto) (50.0-75.0) % Lymph % (Auto) (20.0-40.0) % [place] % (Auto) (0.0-10.0) % Eos % (Auto) (0.0-4.0) % Baso % (Auto) (0.0-2.0) % Neut # (1.8-7.0) K/uL Lymph # (1.0-4.3) K/uL [place] # (0.0-0.8) K/uL Eos # (0.0-0.7) K/uL Baso # (0.0-0.2) K/uL Neutrophils % (Manual) (50-75) % Lymphocytes % (Manual) (20-40) % Monocytes % (Manual) (0-10) % Platelet Estimate (NORMAL) Polychromasia Hypochromasia (manual) Anisocytosis (manual) Sodium (132-148) mmol/L Potassium (3.6-5.2) mmol/L Chloride (98-107) mmol/L Carbon Dioxide (22-30) mmol/L Anion Gap (10-20) BUN (7-17) mg/dL Creatinine (0.7-1.2) mg/dL Est GFR ( Amer) Est GFR (Non-Af Amer) POC Glucose (mg/dL) (65-110) mg/dL Random Glucose (65-105) mg/dL Calcium (8.6-10.4) mg/dl Phosphorus (2.5-4.5) mg/dL Magnesium (1.6-2.3) mg/dL Total Bilirubin (0.2-1.3) mg/dL AST (14-36) U/L ALT (9-52) U/L Alkaline Phosphatase (38-126) U/L Total Creatine Kinase 37 (30-135) U/L CK-MB (Mass) 3.80 H (0.0-3.38) ng/mL Troponin I 0.1570 H* (0.00-0.120) ng/mL NT-Pro-B Natriuret Pep 82575 H (0-900) pg/mL Total Protein (6.3-8.3) g/dL Albumin (3.5-5.0) g/dL Globulin (2.2-3.9) gm/dL Albumin/Globulin Ratio (1.0-2.1) Influenza Typ A,B (EIA) Negative for flu a/b (NEGATIVE) Ur L.pneumophila Ag Negative (NEGATIVE) Laboratory Results - last 24 hr 03/29/17 03/29/17 03/30/17 19:32 Unknown 06:34 WBC 11.5 H RBC 2.97 L Hgb 8.7 L Hct 26.2 L MCV 88.1 MCH 29.4 MCHC 33.3 RDW 18.5 H Plt Count 44 L MPV 11.1 Neut % (Auto) 89.0 H Lymph % (Auto) 1.6 L [place] % (Auto) 9.0 Eos % (Auto) 0.1 Baso % (Auto) 0.3 Neut # 10.2 H Lymph # 0.2 L [place] # 1.0 H Eos # 0.0 Baso # 0.0 Neutrophils % (Manual) 93 H Lymphocytes % (Manual) 2 L Monocytes % (Manual) 5 Platelet Estimate Decreased L Polychromasia Slight Hypochromasia (manual) Slight Anisocytosis (manual) Slight Sodium Potassium Chloride Carbon Dioxide Anion Gap BUN Creatinine Est GFR ( Amer) Est GFR (Non-Af Amer) POC Glucose (mg/dL) Random Glucose Calcium Phosphorus Magnesium Total Bilirubin AST ALT Alkaline Phosphatase Total Creatine Kinase 37 CK-MB (Mass) 3.80 H Troponin I 0.1570 H* NT-Pro-B Natriuret Pep 41503 H Total Protein Albumin Globulin Albumin/Globulin Ratio Influenza Typ A,B (EIA) Negative for flu a/b Ur L.pneumophila Ag Negative 03/30/17 03/30/17 06:34 11:45 WBC RBC Hgb Hct MCV MCH MCHC RDW Plt Count MPV Neut % (Auto) Lymph % (Auto) [place] % (Auto) Eos % (Auto) Baso % (Auto) Neut # Lymph # [place] # Eos # Baso # Neutrophils % (Manual) Lymphocytes % (Manual) Monocytes % (Manual) Platelet Estimate Polychromasia Hypochromasia (manual) Anisocytosis (manual) Sodium 129 L Potassium 4.6 Chloride 99 Carbon Dioxide 27 Anion Gap 8 L BUN 16 Creatinine 0.4 L Est GFR ( Amer) > 60 Est GFR (Non-Af Amer) > 60 POC Glucose (mg/dL) 76 Random Glucose 87 Calcium 7.5 L Phosphorus 3.7 Magnesium 1.6 Total Bilirubin 0.9 AST 46 H D ALT 42 Alkaline Phosphatase 150 H Total Creatine Kinase CK-MB (Mass) Troponin I NT-Pro-B Natriuret Pep Total Protein 4.7 L Albumin 2.2 L Globulin 2.5 Albumin/Globulin Ratio 0.8 L Influenza Typ A,B (EIA) Ur L.pneumophila Ag Critical Care Progress Note - Nutrition Nutrition: Nutrition Category Date Time Status Heart Healthy Diet [DIET] Diets 03/27/17 Lunch Active Assessment/Plan - Assessment and Plan (Free Text) Plan: Above patient seen and examined at bedside during multidisciplinary rounds. Patients chart, microbiology, chemistry, cbc, radiology and EKG reviewed. Above resident documented our physical exam, discussion and current management. Patient was informed of above management. Risks, benefits and alternatives explained. Benefits outweigh the risk with current management. -h/o Lupus previously taking plaquenil/hydroxychloroquine -currently CT reveals no gorund glass opacity, but rather air bronchograms with alveolar infiltrates, suspect infection [diff includes viral (influenza), bacterial staph/strep, atypical (legionella), opportunistic (PJP), fungal( aspergillus)] -[employer] possibl (however, pre-test probability low on IV solumedrol) -large A-a gradient: 2nd VQ mismatch, PE ruled out with CT angio -negative balance -Hyponatremia: possible cortisol deficiency, check urine osmol, serum osmol, ( heart failure/SIADH/check TSH) -continue broad spectrum anti viral, antibacterial and antifungal -continue NIV -LE edema: suspect CHronic diastolic heart failure with moderate pulmonary hypertension -continue dvt/PUX ppx -Patient remains critical. cc time 35 minutes - Date & Time Date: 03/30/17 Time: 15:37
[2017-03-30 08:35] LABS: LYMPHOCYTE 2 % (20-40); NEUTROPHIL 93 % (50-75); TOTAL CELLS COUNTED 100
[2017-03-30 08:36] LABS: ANISOCYTOSIS SLIGHT; MONOCYTE 5 % (0-10); PLATELET ESTIMATE DECREASED (NORMAL)
[2017-03-30 08:39] LABS: HYPOCHROMIC SLIGHT; POLYCHROMIC SLIGHT
[2017-03-30] MEDS: Fluconazole IV 200mg/100 ml NS 100 ML IVPB SCH (10:00)
[2017-03-30] MEDS: Vancomycin 1 gm/NS 200 ml 1 GM/200 ML BAG IVPB SCH ×2 (11:00→21:07)
[2017-03-30] MEDS: Aztreonam 1 GM in Sodium Chloride 0.9% 100 ML IVPB SCH ×2 (11:00→18:00)
[2017-03-30] MEDS: Atovaquone 750 mg/5 ml Susp UD PO SCH (11:30)
[2017-03-30] MEDS: MethylPREDNISolone 40 mg Vial IVP SCH ×2 (11:36→21:08)
--- NOTE | 2017-03-30 11:44 | CP.PCM.PN ---
Subjective - Date & Time of Evaluation Date of Evaluation: 03/30/17 Time of Evaluation: 08:35 - Subjective Subjective: less dyspnea today. Objective - Vital Signs/Intake and Output Vital Signs (last 24 hours): Temp Pulse Resp BP Pulse Ox 97.8 F 111 H 40 H 116/75 100 03/30/17 08:00 03/30/17 11:00 03/30/17 11:00 03/30/17 11:00 03/30/17 11:00 Intake and Output: 03/30/17 03/30/17 06:59 18:59 Intake Total 300 0 Output Total 605 200 Balance -305 -200 - Medications Medications: Current Medications Atovaquone (Mepron) 1,500 mg PO ACL [facility] Last Admin: 03/30/17 11:30 Dose: 1,500 mg Clopidogrel Bisulfate (Plavix) 75 mg PO DAILY [facility] Last Admin: 03/30/17 11:33 Dose: 75 mg Famotidine (Pepcid) 20 mg PO BID [facility] Last Admin: 03/30/17 11:34 Dose: 20 mg Gabapentin (Neurontin) 400 mg PO BID [facility] Last Admin: 03/30/17 11:35 Dose: 400 mg Hydroxychloroquine Sulfate (Plaquenil) 200 mg PO DAILY [facility] Last Admin: 03/30/17 11:35 Dose: 200 mg Doxycycline Hyclate 100 mg/ (Sodium Chloride) 100 mls @ 100 mls/hr IVPB Q12H [facility] Last Admin: 03/30/17 02:00 Dose: 100 mls/hr Fluconazole (Diflucan Iv 200 Mg/100 Ml Ns) 100 mls @ 100 mls/hr IVPB DAILY [facility] Last Admin: 03/30/17 10:00 Dose: 100 mls/hr Vancomycin/Sodium Chloride (Vancomycin 1 Gm/Ns 200 Ml) 1 gm in 200 mls @ 133.333 mls/hr IVPB Q12H [facility] Stop: 04/04/17 09:31 Last Admin: 03/30/17 11:00 Dose: 133.333 mls/hr Aztreonam 1 gm/ Sodium (Chloride) 100 mls @ 100 mls/hr IVPB Q8H [facility] Last Admin: 03/30/17 11:00 Dose: 100 mls/hr Methylprednisolone (Solu-Medrol) 40 mg IVP Q12 [facility] Last Admin: 03/30/17 11:36 Dose: 40 mg Ondansetron HCl (Zofran Inj) 4 mg IVP Q6H PRN PRN Reason: Nausea/Vomiting Last Admin: 03/20/17 15:01 Dose: 4 mg Oseltamivir Phosphate (Tamiflu Cap) 75 mg PO BID [facility] Stop: 04/04/17 09:22 Last Admin: 03/30/17 11:30 Dose: 75 mg Rosuvastatin Calcium (Crestor) 20 mg PO HS [facility] Last Admin: 03/29/17 22:34 Dose: Not Given Vitamin A (Vitamin A & D Oint Ud Foilpak) 0.5 ea TOP Q4 [facility] Last Admin: 03/30/17 08:00 Dose: 0.5 ea - Labs Labs: 03/30/17 06:34 03/30/17 06:34 PT 16.2 SECONDS (9.7-12.2) H 03/20/17 04:08 INR 1.4 03/20/17 04:08 APTT 38 SECONDS (21-34) H D 03/20/17 04:08 - Constitutional Appears: Non-toxic - Head Exam Head Exam: NORMAL INSPECTION - Eye Exam Eye Exam: Normal appearance - ENT Exam ENT Exam: Mucous Membranes Moist - Neck Exam Neck Exam: Normal Inspection - Respiratory Exam Respiratory Exam: Decreased Breath Sounds - Cardiovascular Exam Cardiovascular Exam: Tachycardia, REGULAR RHYTHM - GI/Abdominal Exam GI & Abdominal Exam: Normal Bowel Sounds - Rectal Exam Rectal Exam: Deferred - Extremities Exam Extremities Exam: absent: Pedal Edema - Back Exam Back Exam: NORMAL INSPECTION - Neurological Exam Neurological Exam: Alert - Psychiatric Exam Psychiatric exam: Normal Affect - Skin Skin Exam: Normal Color Assessment and Plan (1) Elevated troponin Assessment & Plan: likely demand ischemia. recommend conservative tehrapy. can d/c heparin. echocardiogram reveals normal left ventricular function. Status: Acute
[2017-03-30] MEDS: metroNIDAZOLE IV 500 mg/100 ml 500 MG/100 ML BAG IVPB SCH ×2 (15:30→21:08)
--- NOTE | 2017-03-30 17:58 | CP.PCM.PN ---
Subjective - Date & Time of Evaluation Date of Evaluation: 03/29/17 Time of Evaluation: 12:00 - Subjective Subjective: Seen on bipap transferred to ICU Objective - Vital Signs/Intake and Output Vital Signs (last 24 hours): Temp Pulse Resp BP Pulse Ox 98.4 F 107 H 38 H 113/80 95 03/30/17 16:00 03/30/17 17:00 03/30/17 17:00 03/30/17 17:00 03/30/17 17:00 Intake and Output: 03/30/17 03/30/17 06:59 18:59 Intake Total 300 600 Output Total 605 500 Balance -305 100 - Medications Medications: Current Medications Atovaquone (Mepron) 1,500 mg PO ACL [facility] Last Admin: 03/30/17 11:30 Dose: 1,500 mg Clopidogrel Bisulfate (Plavix) 75 mg PO DAILY [facility] Last Admin: 03/30/17 11:33 Dose: 75 mg Famotidine (Pepcid) 20 mg PO BID [facility] Last Admin: 03/30/17 11:34 Dose: 20 mg Gabapentin (Neurontin) 400 mg PO BID [facility] Last Admin: 03/30/17 11:35 Dose: 400 mg Hydroxychloroquine Sulfate (Plaquenil) 200 mg PO DAILY [facility] Last Admin: 03/30/17 11:35 Dose: 200 mg Doxycycline Hyclate 100 mg/ (Sodium Chloride) 100 mls @ 100 mls/hr IVPB Q12H [facility] Last Admin: 03/30/17 14:00 Dose: 100 mls/hr Fluconazole (Diflucan Iv 200 Mg/100 Ml Ns) 100 mls @ 100 mls/hr IVPB DAILY [facility] Last Admin: 03/30/17 10:00 Dose: 100 mls/hr Vancomycin/Sodium Chloride (Vancomycin 1 Gm/Ns 200 Ml) 1 gm in 200 mls @ 133.333 mls/hr IVPB Q12H [facility] Stop: 04/04/17 09:31 Last Admin: 03/30/17 11:00 Dose: 133.333 mls/hr Aztreonam 1 gm/ Sodium (Chloride) 100 mls @ 100 mls/hr IVPB Q8H [facility] Last Admin: 03/30/17 11:00 Dose: 100 mls/hr Metronidazole (Flagyl) 500 mg in 100 mls @ 100 mls/hr IVPB Q8 [facility] Last Admin: 03/30/17 15:30 Dose: 100 mls/hr Methylprednisolone (Solu-Medrol) 40 mg IVP Q12 [facility] Last Admin: 03/30/17 11:36 Dose: 40 mg Ondansetron HCl (Zofran Inj) 4 mg IVP Q6H PRN PRN Reason: Nausea/Vomiting Last Admin: 03/20/17 15:01 Dose: 4 mg Oseltamivir Phosphate (Tamiflu Cap) 75 mg PO BID [facility] Stop: 04/04/17 09:22 Last Admin: 03/30/17 11:30 Dose: 75 mg Rosuvastatin Calcium (Crestor) 20 mg PO HS [facility] Last Admin: 03/29/17 22:34 Dose: Not Given Vitamin A (Vitamin A & D Oint Ud Foilpak) 0.5 ea TOP Q4 [facility] Last Admin: 03/30/17 12:00 Dose: 0.5 ea - Labs Labs: 03/30/17 06:34 03/30/17 06:34 PT 16.2 SECONDS (9.7-12.2) H 03/20/17 04:08 INR 1.4 03/20/17 04:08 APTT 38 SECONDS (21-34) H D 03/20/17 04:08 - Head Exam Head Exam: ATRAUMATIC - Eye Exam Eye Exam: Normal appearance - ENT Exam ENT Exam: Mucous Membranes Dry - Respiratory Exam Respiratory Exam: Decreased Breath Sounds - Cardiovascular Exam Cardiovascular Exam: +S1, +S2 - GI/Abdominal Exam GI & Abdominal Exam: Normal Bowel Sounds Assessment and Plan (1) Thrombocytopenia Assessment & Plan: immunosuppression and immune mediated suspected element of sepsis slightly improved on steroids for bone marrow evaluation when consents and more clinically stable Status: Acute (2) Anemia Assessment & Plan: s/p 2U PRBC direct kimo negative low retic index; hypoproliferative erythroid response unlikely acute hemolysis anemia of chronic disease immunosuppression contribution on marrow for bone marrow evaluation when more stable Status: Acute (3) Coagulopathy Status: Acute
--- NOTE | 2017-03-30 17:59 | CP.PCM.PN ---
Subjective - Date & Time of Evaluation Date of Evaluation: 03/30/17 Time of Evaluation: 17:35 - Subjective Subjective: Still short of breath Objective - Vital Signs/Intake and Output Vital Signs (last 24 hours): Temp Pulse Resp BP Pulse Ox 98.4 F 107 H 38 H 113/80 95 03/30/17 16:00 03/30/17 17:00 03/30/17 17:00 03/30/17 17:00 03/30/17 17:00 Intake and Output: 03/30/17 03/30/17 06:59 18:59 Intake Total 300 600 Output Total 605 500 Balance -305 100 - Medications Medications: Current Medications Atovaquone (Mepron) 1,500 mg PO ACL [facility] Last Admin: 03/30/17 11:30 Dose: 1,500 mg Clopidogrel Bisulfate (Plavix) 75 mg PO DAILY [facility] Last Admin: 03/30/17 11:33 Dose: 75 mg Famotidine (Pepcid) 20 mg PO BID [facility] Last Admin: 03/30/17 11:34 Dose: 20 mg Gabapentin (Neurontin) 400 mg PO BID [facility] Last Admin: 03/30/17 11:35 Dose: 400 mg Hydroxychloroquine Sulfate (Plaquenil) 200 mg PO DAILY [facility] Last Admin: 03/30/17 11:35 Dose: 200 mg Doxycycline Hyclate 100 mg/ (Sodium Chloride) 100 mls @ 100 mls/hr IVPB Q12H [facility] Last Admin: 03/30/17 14:00 Dose: 100 mls/hr Fluconazole (Diflucan Iv 200 Mg/100 Ml Ns) 100 mls @ 100 mls/hr IVPB DAILY [facility] Last Admin: 03/30/17 10:00 Dose: 100 mls/hr Vancomycin/Sodium Chloride (Vancomycin 1 Gm/Ns 200 Ml) 1 gm in 200 mls @ 133.333 mls/hr IVPB Q12H [facility] Stop: 04/04/17 09:31 Last Admin: 03/30/17 11:00 Dose: 133.333 mls/hr Aztreonam 1 gm/ Sodium (Chloride) 100 mls @ 100 mls/hr IVPB Q8H [facility] Last Admin: 03/30/17 11:00 Dose: 100 mls/hr Metronidazole (Flagyl) 500 mg in 100 mls @ 100 mls/hr IVPB Q8 [facility] Last Admin: 03/30/17 15:30 Dose: 100 mls/hr Methylprednisolone (Solu-Medrol) 40 mg IVP Q12 [facility] Last Admin: 03/30/17 11:36 Dose: 40 mg Ondansetron HCl (Zofran Inj) 4 mg IVP Q6H PRN PRN Reason: Nausea/Vomiting Last Admin: 03/20/17 15:01 Dose: 4 mg Oseltamivir Phosphate (Tamiflu Cap) 75 mg PO BID [facility] Stop: 04/04/17 09:22 Last Admin: 03/30/17 11:30 Dose: 75 mg Rosuvastatin Calcium (Crestor) 20 mg PO HS [facility] Last Admin: 03/29/17 22:34 Dose: Not Given Vitamin A (Vitamin A & D Oint Ud Foilpak) 0.5 ea TOP Q4 [facility] Last Admin: 03/30/17 12:00 Dose: 0.5 ea - Labs Labs: 03/30/17 06:34 03/30/17 06:34 PT 16.2 SECONDS (9.7-12.2) H 03/20/17 04:08 INR 1.4 03/20/17 04:08 APTT 38 SECONDS (21-34) H D 03/20/17 04:08 - Head Exam Head Exam: ATRAUMATIC - Eye Exam Eye Exam: Normal appearance - ENT Exam ENT Exam: Mucous Membranes Dry - Respiratory Exam Respiratory Exam: NORMAL BREATHING PATTERN - Cardiovascular Exam Cardiovascular Exam: +S1, +S2 - GI/Abdominal Exam GI & Abdominal Exam: Normal Bowel Sounds Assessment and Plan (1) Thrombocytopenia Assessment & Plan: immunosuppression and immune mediated suspected element of sepsis slightly improved on steroids for bone marrow evaluation when consents and more clinically stable Status: Acute (2) Anemia Assessment & Plan: s/p 2U PRBC direct kimo negative low retic index; hypoproliferative erythroid response unlikely acute hemolysis anemia of chronic disease immunosuppression contribution on marrow for bone marrow evaluation when more stable Status: Acute (3) Coagulopathy Status: Acute
[2017-03-31] MEDS: Vitamins A & D Oint UD Foilpak TOP SCH ×3 (00:31→12:20)
[2017-03-31] MEDS: Aztreonam 1 GM in Sodium Chloride 0.9% 100 ML IVPB SCH ×3 (02:13→17:37)
[2017-03-31] MEDS: metroNIDAZOLE IV 500 mg/100 ml 500 MG/100 ML BAG IVPB SCH ×3 (05:29→21:00)
[2017-03-31 06:41] LABS: BASO % 0.1 % (0.0-2.0); HEMOGLOBIN 8.7 g/dL (11.0-16.0); LYMPH # 0.2 K/uL (1.0-4.3); MEAN CELL VOLUME 89.2 fL (81.0-99.0); MEAN CORPUSCULAR HEMOGLOBIN 29.6 pg (27.0-31.0); MEAN CORPUSCULAR HGB CONC 33.2 g/dL (33.0-37.0); MEAN PLATELET VOLUME 10.6 fL (7.2-11.7); MONO % 9.2 % (0.0-10.0); NEUT # 10.1 K/uL (1.8-7.0); NEUT % 88.7 % (50.0-75.0); PLATELET COUNT 44 K/uL (130-400); RBC 2.94 Mil/uL (3.80-5.20); RED CELL DISTRIBUTION WIDTH 18.5 % (11.5-14.5); WHITE BLOOD COUNT 11.3 K/uL (4.8-10.8)
[2017-03-31 07:21] LABS: ALB/GLOB RATIO 0.7 (1.0-2.1); ALBUMIN 2.3 g/dL (3.5-5.0); ALT/SGPT 48 U/L (9-52); AST/SGOT 42 U/L (14-36); BLOOD UREA NITROGEN 22 mg/dL (7-17); CALCIUM 8.4 mg/dl (8.6-10.4); GFR AFRICAN-AMERICAN > 60; GFR NON-AFRICAN AMERICAN > 60; MAGNESIUM 1.7 mg/dL (1.6-2.3)
--- NOTE | 2017-03-31 08:10 | CP.CCUPN ---
<Thais Luz - Last Filed: 03/31/17 13:34> CCU Subjective - Physician Review Subjective (Free Text): 03/31/17 07:40 Patient seen and examined at bedside. Patient resting in bed saying she "doesn' t feel good" but cannot explain what that means. Patient denies difficulty breathing despite obvious accessory muscle use. She continues to ask to eat despite low O2 sat while off BiPAP. Denies chest pain, palpitations, abdominal pain, n/v/d. CCU Objective - Vital Signs / Intake & Output Vital Signs (Last 4 hours): Vital Signs Temp Pulse Resp BP Pulse Ox 03/31/17 07:00 116 H 37 H 131/90 96 03/31/17 06:01 118 H 40 H 124/81 94 L 03/31/17 06:00 118 H 42 H 94 L 03/31/17 05:49 112 H 03/31/17 05:01 129/92 H 03/31/17 04:01 112 H 38 H 135/92 H 100 03/31/17 04:00 97.5 F L Intake and Output (Last 8hrs): Intake & Output 03/30/17 03/31/17 03/31/17 22:59 06:59 14:59 Intake Total 550 400 Output Total 270 180 20 Balance 280 220 -20 Weight 183 lb 4.8 oz Intake: Intake, IV Amount 400 400 Left Antecubital Mid-line 400 400 Oral 150 Output: Urine 270 180 20 Urine, Voided 270 180 20 - Physical Exam Head: Positive for: Atraumatic, Normocephalic Pupils: Positive for: PERRL Extroacular Muscles: Positive for: EOMI Conjunctiva: Positive for: Normal Mouth: Positive for: Moist Mucous Membranes Neck: Positive for: Normal Range of Motion Respiratory/Chest: Positive for: Accessory Muscle Use, Wheezes, Rales, Other ( BiPAP). Negative for: Rhonchi Cardiovascular: Positive for: Normal S1, S2, Tachycardic Abdomen: Positive for: Normal Bowel Sounds. Negative for: Tenderness, Distention, Peritoneal Signs Upper Extremity: Positive for: Normal Inspection Lower Extremity: Positive for: Edema. Negative for: Tenderness Neurological: Positive for: GCS=15, Speech Normal Skin: Positive for: Warm, Dry. Negative for: Rashes Psychiatric: Positive for: Alert, Oriented x 3, Normal Insight, Normal Concentration - Medications Active Medications: Active Medications Generic Name Dose Route Start Last Admin Trade Name Freq PRN Reason Stop Dose Admin Atovaquone 1,500 mg 03/30/17 11:30 03/30/17 11:30 Mepron PO 1,500 mg ACL IMAN Administration Clopidogrel Bisulfate 75 mg 03/23/17 10:00 03/30/17 11:33 Plavix PO 75 mg DAILY IMAN Administration Famotidine 20 mg 03/23/17 10:00 03/30/17 18:30 Pepcid PO 20 mg BID IMAN Administration Gabapentin 400 mg 03/23/17 10:00 03/30/17 18:30 Neurontin PO 400 mg BID IMAN Administration Hydroxychloroquine Sulfate 200 mg 03/28/17 10:00 03/30/17 11:35 Plaquenil PO 200 mg DAILY IMAN Administration Doxycycline Hyclate 100 mg/ 100 mls @ 100 mls/hr 03/29/17 14:00 03/31/17 02: 12 Sodium Chloride IVPB 100 mls/hr Q12H IMAN Administration Fluconazole 100 mls @ 100 mls/hr 03/30/17 10:00 03/30/17 10:00 Diflucan Iv 200 Mg/100 Ml Ns IVPB 100 mls/hr DAILY IMAN Administration Vancomycin/Sodium Chloride 1 gm in 200 mls @ 133.333 mls/hr 03/30/17 09:30 21:07 Vancomycin 1 Gm/Ns 200 Ml IVPB 04/04/17 09:31 133.333 mls/hr Q12H IMAN Administration Aztreonam 1 gm/ Sodium 100 mls @ 100 mls/hr 03/30/17 10:30 03/31/17 02:13 Chloride IVPB 100 mls/hr Q8H IMAN Administration Metronidazole 500 mg in 100 mls @ 100 mls/hr 03/30/17 14:00 03/31/17 05:29 Flagyl IVPB 100 mls/hr Q8 IMAN Administration Methylprednisolone 40 mg 03/20/17 11:15 03/30/17 21:08 Solu-Medrol IVP 40 mg Q12 IMAN Administration Ondansetron HCl 4 mg 03/20/17 15:00 03/20/17 15:01 Zofran Inj IVP 4 mg Q6H PRN Administration Nausea/Vomiting Oseltamivir Phosphate 75 mg 03/30/17 10:00 03/30/17 18:30 Tamiflu Cap PO 04/04/17 09:22 75 mg BID IMAN Administration Rosuvastatin Calcium 20 mg 03/23/17 22:00 03/30/17 21:08 Crestor PO 20 mg HS IMAN Administration Vitamin A 0.5 ea 03/29/17 00:00 03/31/17 03:17 Vitamin A & D Oint Ud Foilpak TOP 0.5 ea Q4 IMAN Administration - Patient Studies Lab Studies: Lab Studies 03/31/17 03/31/17 03/31/17 Range/Units 06:28 06:28 05:38 WBC 11.3 H (4.8-10.8) K/uL RBC 2.94 L (3.80-5.20) Mil/uL Hgb 8.7 L (11.0-16.0) g/dL Hct 26.2 L (34.0-47.0) % MCV 89.2 (81.0-99.0) fL MCH 29.6 (27.0-31.0) pg MCHC 33.2 (33.0-37.0) g/dL RDW 18.5 H (11.5-14.5) % Plt Count 44 L (130-400) K/uL MPV 10.6 (7.2-11.7) fL Neut % (Auto) 88.7 H (50.0-75.0) % Lymph % (Auto) 2.0 L (20.0-40.0) % [place] % (Auto) 9.2 (0.0-10.0) % Eos % (Auto) 0.0 (0.0-4.0) % Baso % (Auto) 0.1 (0.0-2.0) % Neut # 10.1 H (1.8-7.0) K/uL Lymph # 0.2 L (1.0-4.3) K/uL [place] # 1.0 H (0.0-0.8) K/uL Eos # 0.0 (0.0-0.7) K/uL Baso # 0.0 (0.0-0.2) K/uL Neutrophils % (Manual) (50-75) % Lymphocytes % (Manual) (20-40) % Monocytes % (Manual) (0-10) % Platelet Estimate (NORMAL) Polychromasia Hypochromasia (manual) Anisocytosis (manual) Sodium 133 (132-148) mmol/L Potassium 4.5 (3.6-5.2) mmol/L Chloride 100 (98-107) mmol/L Carbon Dioxide 32 H (22-30) mmol/L Anion Gap 6 L (10-20) BUN 22 H (7-17) mg/dL Creatinine 0.4 L (0.7-1.2) mg/dL Est GFR ( Amer) > 60 Est GFR (Non-Af Amer) > 60 POC Glucose (mg/dL) 111 H (65-110) mg/dL Random Glucose 103 (65-105) mg/dL Calcium 8.4 L (8.6-10.4) mg/dl Phosphorus 3.9 (2.5-4.5) mg/dL Magnesium 1.7 (1.6-2.3) mg/dL Total Bilirubin 0.6 (0.2-1.3) mg/dL AST 42 H (14-36) U/L ALT 48 (9-52) U/L Alkaline Phosphatase 140 H (38-126) U/L Total Protein 5.8 L (6.3-8.3) g/dL Albumin 2.3 L (3.5-5.0) g/dL Globulin 3.5 (2.2-3.9) gm/dL Albumin/Globulin Ratio 0.7 L (1.0-2.1) Mycoplasma pneumon IgM (NEGATIVE) 03/30/17 03/30/17 03/30/17 Range/Units 23:46 18:13 11:45 WBC (4.8-10.8) K/uL RBC (3.80-5.20) Mil/uL Hgb (11.0-16.0) g/dL Hct (34.0-47.0) % MCV (81.0-99.0) fL MCH (27.0-31.0) pg MCHC (33.0-37.0) g/dL RDW (11.5-14.5) % Plt Count (130-400) K/uL MPV (7.2-11.7) fL Neut % (Auto) (50.0-75.0) % Lymph % (Auto) (20.0-40.0) % [place] % (Auto) (0.0-10.0) % Eos % (Auto) (0.0-4.0) % Baso % (Auto) (0.0-2.0) % Neut # (1.8-7.0) K/uL Lymph # (1.0-4.3) K/uL [place] # (0.0-0.8) K/uL Eos # (0.0-0.7) K/uL Baso # (0.0-0.2) K/uL Neutrophils % (Manual) (50-75) % Lymphocytes % (Manual) (20-40) % Monocytes % (Manual) (0-10) % Platelet Estimate (NORMAL) Polychromasia Hypochromasia (manual) Anisocytosis (manual) Sodium (132-148) mmol/L Potassium (3.6-5.2) mmol/L Chloride (98-107) mmol/L Carbon Dioxide (22-30) mmol/L Anion Gap (10-20) BUN (7-17) mg/dL Creatinine (0.7-1.2) mg/dL Est GFR ( Amer) Est GFR (Non-Af Amer) POC Glucose (mg/dL) 109 95 76 (65-110) mg/dL Random Glucose (65-105) mg/dL Calcium (8.6-10.4) mg/dl Phosphorus (2.5-4.5) mg/dL Magnesium (1.6-2.3) mg/dL Total Bilirubin (0.2-1.3) mg/dL AST (14-36) U/L ALT (9-52) U/L Alkaline Phosphatase (38-126) U/L Total Protein (6.3-8.3) g/dL Albumin (3.5-5.0) g/dL Globulin (2.2-3.9) gm/dL Albumin/Globulin Ratio (1.0-2.1) Mycoplasma pneumon IgM (NEGATIVE) 03/30/17 03/30/17 Range/Units 06:34 06:34 WBC (4.8-10.8) K/uL RBC (3.80-5.20) Mil/uL Hgb (11.0-16.0) g/dL Hct (34.0-47.0) % MCV (81.0-99.0) fL MCH (27.0-31.0) pg MCHC (33.0-37.0) g/dL RDW (11.5-14.5) % Plt Count (130-400) K/uL MPV (7.2-11.7) fL Neut % (Auto) (50.0-75.0) % Lymph % (Auto) (20.0-40.0) % [place] % (Auto) (0.0-10.0) % Eos % (Auto) (0.0-4.0) % Baso % (Auto) (0.0-2.0) % Neut # (1.8-7.0) K/uL Lymph # (1.0-4.3) K/uL [place] # (0.0-0.8) K/uL Eos # (0.0-0.7) K/uL Baso # (0.0-0.2) K/uL Neutrophils % (Manual) 93 H (50-75) % Lymphocytes % (Manual) 2 L (20-40) % Monocytes % (Manual) 5 (0-10) % Platelet Estimate Decreased L (NORMAL) Polychromasia Slight Hypochromasia (manual) Slight Anisocytosis (manual) Slight Sodium (132-148) mmol/L Potassium (3.6-5.2) mmol/L Chloride (98-107) mmol/L Carbon Dioxide (22-30) mmol/L Anion Gap (10-20) BUN (7-17) mg/dL Creatinine (0.7-1.2) mg/dL Est GFR ( Amer) Est GFR (Non-Af Amer) POC Glucose (mg/dL) (65-110) mg/dL Random Glucose (65-105) mg/dL Calcium (8.6-10.4) mg/dl Phosphorus (2.5-4.5) mg/dL Magnesium (1.6-2.3) mg/dL Total Bilirubin (0.2-1.3) mg/dL AST (14-36) U/L ALT (9-52) U/L Alkaline Phosphatase (38-126) U/L Total Protein (6.3-8.3) g/dL Albumin (3.5-5.0) g/dL Globulin (2.2-3.9) gm/dL Albumin/Globulin Ratio (1.0-2.1) Mycoplasma pneumon IgM Negative (NEGATIVE) Laboratory Results - last 24 hr 03/30/17 03/30/17 03/30/17 06:34 06:34 11:45 WBC RBC Hgb Hct MCV MCH MCHC RDW Plt Count MPV Neut % (Auto) Lymph % (Auto) [place] % (Auto) Eos % (Auto) Baso % (Auto) Neut # Lymph # [place] # Eos # Baso # Neutrophils % (Manual) 93 H Lymphocytes % (Manual) 2 L Monocytes % (Manual) 5 Platelet Estimate Decreased L Polychromasia Slight Hypochromasia (manual) Slight Anisocytosis (manual) Slight Sodium Potassium Chloride Carbon Dioxide Anion Gap BUN Creatinine Est GFR ( Amer) Est GFR (Non-Af Amer) POC Glucose (mg/dL) 76 Random Glucose Calcium Phosphorus Magnesium Total Bilirubin AST ALT Alkaline Phosphatase Total Protein Albumin Globulin Albumin/Globulin Ratio Mycoplasma pneumon IgM Negative 03/30/17 03/30/17 03/31/17 18:13 23:46 05:38 WBC RBC Hgb Hct MCV MCH MCHC RDW Plt Count MPV Neut % (Auto) Lymph % (Auto) [place] % (Auto) Eos % (Auto) Baso % (Auto) Neut # Lymph # [place] # Eos # Baso # Neutrophils % (Manual) Lymphocytes % (Manual) Monocytes % (Manual) Platelet Estimate Polychromasia Hypochromasia (manual) Anisocytosis (manual) Sodium Potassium Chloride Carbon Dioxide Anion Gap BUN Creatinine Est GFR ( Amer) Est GFR (Non-Af Amer) POC Glucose (mg/dL) 95 109 111 H Random Glucose Calcium Phosphorus Magnesium Total Bilirubin AST ALT Alkaline Phosphatase Total Protein Albumin Globulin Albumin/Globulin Ratio Mycoplasma pneumon IgM 03/31/17 03/31/17 06:28 06:28 WBC 11.3 H RBC 2.94 L Hgb 8.7 L Hct 26.2 L MCV 89.2 MCH 29.6 MCHC 33.2 RDW 18.5 H Plt Count 44 L MPV 10.6 Neut % (Auto) 88.7 H Lymph % (Auto) 2.0 L [place] % (Auto) 9.2 Eos % (Auto) 0.0 Baso % (Auto) 0.1 Neut # 10.1 H Lymph # 0.2 L [place] # 1.0 H Eos # 0.0 Baso # 0.0 Neutrophils % (Manual) Lymphocytes % (Manual) Monocytes % (Manual) Platelet Estimate Polychromasia Hypochromasia (manual) Anisocytosis (manual) Sodium 133 Potassium 4.5 Chloride 100 Carbon Dioxide 32 H Anion Gap 6 L BUN 22 H Creatinine 0.4 L Est GFR ( Amer) > 60 Est GFR (Non-Af Amer) > 60 POC Glucose (mg/dL) Random Glucose 103 Calcium 8.4 L Phosphorus 3.9 Magnesium 1.7 Total Bilirubin 0.6 AST 42 H ALT 48 Alkaline Phosphatase 140 H Total Protein 5.8 L Albumin 2.3 L Globulin 3.5 Albumin/Globulin Ratio 0.7 L Mycoplasma pneumon IgM Fingerstick Blood Sugar Results: 132 Review of Systems - Review of Systems All systems: reviewed and no additional remarkable complaints except (as per HPI ) Critical Care Progress Note - Nutrition Nutrition: Nutrition Category Date Time Status Heart Healthy Diet [DIET] Diets 03/27/17 Lunch Active Assessment/Plan - Assessment and Plan (Free Text) Plan: Neuro * A&Ox3 * Neurology consulted (Steve) - recs appreciated * Gabapentin 400 mg PO BID Cardio * Tachycardia * BP stable * Troponin + (0.2650, 0.1570) * Plavix 75 mg PO QD * Heparin drip discontinued 03/29 * Crestor 20 mg PO HS * Echo: grade 1 relaxation pattern and mild pulmonary hypertension * EKG: T Wave abnormality * BNP 47675 * UE and LE US - negative for DVT Respiratory * BiPAP * CTA: b/l interstitial/alveolar infiltrate with superimposed multifocal eder consolidation, dilated main pulmonary artery * ABG refused in the past, will try again today * Solu-medrol 40 mg IV Q12 Renal * Balance +750 * BUN/Cr 22/0.4 Fluids, electrolytes, nutrition * NPO due to low O2 sats while eating, will supplement with ensure for quick nutrition * Ca 8.4 * Albumin 2.3 Infectious disease * afebrile * WBC 11.3 - possibly due to steroids * ID consulted (Cici) - recs appreciated * Fluconazole 200 mg QD * 1g vanc Q12 * Aztreonam 1g IV Q8 * Doxy 100 IV Q12 * Mepron 1500 mg PO ACL * Flagyl 500 mg Q8 * Tamiflu Hematology * H&H: 8.7/26.2 * Plt: 44 * Plavix 75 mg PO QD * Heparin drip discontinued * Heme/Onc consulted (Thuy) - recs appreciated * Bone marrow biopsy pending patient consent GI * AST 42 - possibly med side effect, down trending * Tbili: 0.6 * Zofran PRN Endocrine * monitor blood glucose * HbA1c 4.7 * Solu-medrol 40 mg IV Q12 Integumentary * A&D ointment * Vaseline Rheumatology * Hydroxychloroquine 200 mg PO QD * Dr. Puckett consulted - recs appreciated Prophylaxis * Pepcid 20 mg PO BID <Obdulio Ford P - Last Filed: 03/31/17 17:11> CCU Objective - Vital Signs / Intake & Output Vital Signs (Last 4 hours): Vital Signs Pulse 03/31/17 14:03 132 H Intake and Output (Last 8hrs): Intake & Output 03/31/17 03/31/17 03/31/17 06:59 14:59 22:59 Intake Total 400 10 Output Total 180 20 Balance 220 -20 10 Weight 183 lb 4.8 oz Intake: IV 10 Intake, IV Amount 400 Left Antecubital Mid-line 400 Output: Urine 180 20 Urine, Voided 180 20 - Medications Active Medications: Active Medications Generic Name Dose Route Start Last Admin Trade Name Freq PRN Reason Stop Dose Admin Acetaminophen 650 mg 03/31/17 12:52 Tylenol 325mg Tab PO Q6 PRN Pain, moderate (4-7) Atovaquone 1,500 mg 03/30/17 11:30 03/31/17 11:52 Mepron PO 1,500 mg ACL IMAN Administration Clopidogrel Bisulfate 75 mg 03/23/17 10:00 03/31/17 11:51 Plavix PO 75 mg DAILY IMAN Administration Emollient Ointment 5 gm 03/31/17 12:18 Vaseline Oint TOP Q4 PRN DRY SKIN Famotidine 20 mg 03/23/17 10:00 03/31/17 11:50 Pepcid PO 20 mg BID IMAN Administration Gabapentin 400 mg 03/23/17 10:00 03/31/17 11:51 Neurontin PO 400 mg BID IMAN Administration Hydroxychloroquine Sulfate 200 mg 03/28/17 10:00 03/31/17 11:52 Plaquenil PO 200 mg DAILY IMAN Administration Doxycycline Hyclate 100 mg/ 100 mls @ 100 mls/hr 03/29/17 14:00 03/31/17 14: 18 Sodium Chloride IVPB 100 mls/hr Q12H IMAN Administration Fluconazole 100 mls @ 100 mls/hr 03/30/17 10:00 03/31/17 10:29 Diflucan Iv 200 Mg/100 Ml Ns IVPB 100 mls/hr DAILY IMAN Administration Vancomycin/Sodium Chloride 1 gm in 200 mls @ 133.333 mls/hr 03/30/17 09:30 10:29 Vancomycin 1 Gm/Ns 200 Ml IVPB 04/04/17 09:31 133.333 mls/hr Q12H IMAN Administration Aztreonam 1 gm/ Sodium 100 mls @ 100 mls/hr 03/30/17 10:30 03/31/17 10:30 Chloride IVPB 100 mls/hr Q8H IMAN Administration Metronidazole 500 mg in 100 mls @ 100 mls/hr 03/30/17 14:00 03/31/17 14:16 Flagyl IVPB 100 mls/hr Q8 IMAN Administration Propofol 1,000 mg in 100 mls @ 2.494 mls/hr 03/31/17 15:15 03/31/17 15:35 Diprivan IV 50 mcg/kg/min .Q24H PRN 24.943 mls/hr TITRATE PER MD ORDER Titration Protocol 5 MCG/KG/MIN Cisatracurium Besylate 100 mg/ 250 mls @ 37.41 mls/hr 03/31/17 15:45 Sodium Chloride IV .[id number] IMAN 3 MCG/KG/MIN Methylprednisolone 125 mg 03/31/17 17:00 03/31/17 16:48 Solu-Medrol IVP Not Given Q6H IMAN Methylprednisolone 85 gm 03/31/17 16:47 Solu-Medrol IV 03/31/17 16:48 ONCE ONE Ondansetron HCl 4 mg 03/20/17 15:00 03/20/17 15:01 Zofran Inj IVP 4 mg Q6H PRN Administration Nausea/Vomiting Oseltamivir Phosphate 75 mg 03/30/17 10:00 03/31/17 11:57 Tamiflu Cap PO 04/04/17 09:22 75 mg BID IMAN Administration Rosuvastatin Calcium 20 mg 03/23/17 22:00 03/30/17 21:08 Crestor PO 20 mg HS IMAN Administration - Patient Studies Lab Studies: Lab Studies 03/31/17 03/31/17 03/31/17 Range/Units 11:32 08:19 06:28 WBC (4.8-10.8) K/uL RBC (3.80-5.20) Mil/uL Hgb (11.0-16.0) g/dL Hct (34.0-47.0) % MCV (81.0-99.0) fL MCH (27.0-31.0) pg MCHC (33.0-37.0) g/dL RDW (11.5-14.5) % Plt Count (130-400) K/uL MPV (7.2-11.7) fL Neut % (Auto) (50.0-75.0) % Lymph % (Auto) (20.0-40.0) % [place] % (Auto) (0.0-10.0) % Eos % (Auto) (0.0-4.0) % Baso % (Auto) (0.0-2.0) % Neut # (1.8-7.0) K/uL Lymph # (1.0-4.3) K/uL [place] # (0.0-0.8) K/uL Eos # (0.0-0.7) K/uL Baso # (0.0-0.2) K/uL Neutrophils % (Manual) (50-75) % Band Neutrophils % (0-2) % Lymphocytes % (Manual) (20-40) % Monocytes % (Manual) (0-10) % Platelet Estimate (NORMAL) Hypochromasia (manual) Anisocytosis (manual) Stomatocytes Puncture Site Rr pCO2 46 H (35-45) mm/Hg pO2 61 L (80-100) mm/Hg HCO3 28.0 (21-28) mmol/L ABG pH 7.41 (7.35-7.45) ABG Total CO2 30.6 H (22-28) mmol/L ABG O2 Saturation 94.6 L (95-98) % ABG Base Excess 4.0 H (-2.0-3.0) mmol/L ABG Hemoglobin 9.0 L (11.7-17.4) g/dL ABG Carboxyhemoglobin 2.4 H (0.5-1.5) % POC ABG HHb (Measured) 5.2 H (0.0-5.0) % ABG Methemoglobin 0.6 (0.0-3.0) % Daljit Test Pos A-a O2 Difference 595.0 mm/Hg Respiratory Index 9.8 Hgb O2 Saturation 91.8 L (95.0-98.0) % Vent Mode Bipap FiO2 100.0 % Inspiratory BiPAP 12 Expiratory BiPAP 6 Sodium 133 (132-148) mmol/L Potassium 4.5 (3.6-5.2) mmol/L Chloride 100 (98-107) mmol/L Carbon Dioxide 32 H (22-30) mmol/L Anion Gap 6 L (10-20) BUN 22 H (7-17) mg/dL Creatinine 0.4 L (0.7-1.2) mg/dL Est GFR ( Amer) > 60 Est GFR (Non-Af Amer) > 60 POC Glucose (mg/dL) 75 (65-110) mg/dL Random Glucose 103 (65-105) mg/dL Calcium 8.4 L (8.6-10.4) mg/dl Phosphorus 3.9 (2.5-4.5) mg/dL Magnesium 1.7 (1.6-2.3) mg/dL Total Bilirubin 0.6 (0.2-1.3) mg/dL AST 42 H (14-36) U/L ALT 48 (9-52) U/L Alkaline Phosphatase 140 H (38-126) U/L Total Protein 5.8 L (6.3-8.3) g/dL Albumin 2.3 L (3.5-5.0) g/dL Globulin 3.5 (2.2-3.9) gm/dL Albumin/Globulin Ratio 0.7 L (1.0-2.1) Mycoplasma pneumon IgM (NEGATIVE) 03/31/17 03/31/17 03/30/17 Range/Units 06:28 05:38 23:46 WBC 11.3 H (4.8-10.8) K/uL RBC 2.94 L (3.80-5.20) Mil/uL Hgb 8.7 L (11.0-16.0) g/dL Hct 26.2 L (34.0-47.0) % MCV 89.2 (81.0-99.0) fL MCH 29.6 (27.0-31.0) pg MCHC 33.2 (33.0-37.0) g/dL RDW 18.5 H (11.5-14.5) % Plt Count 44 L (130-400) K/uL MPV 10.6 (7.2-11.7) fL Neut % (Auto) 88.7 H (50.0-75.0) % Lymph % (Auto) 2.0 L (20.0-40.0) % [place] % (Auto) 9.2 (0.0-10.0) % Eos % (Auto) 0.0 (0.0-4.0) % Baso % (Auto) 0.1 (0.0-2.0) % Neut # 10.1 H (1.8-7.0) K/uL Lymph # 0.2 L (1.0-4.3) K/uL [place] # 1.0 H (0.0-0.8) K/uL Eos # 0.0 (0.0-0.7) K/uL Baso # 0.0 (0.0-0.2) K/uL Neutrophils % (Manual) 88 H (50-75) % Band Neutrophils % 1 (0-2) % Lymphocytes % (Manual) 1 L (20-40) % Monocytes % (Manual) 10 (0-10) % Platelet Estimate Decreased L (NORMAL) Hypochromasia (manual) Slight Anisocytosis (manual) Moderate Stomatocytes Slight Puncture Site pCO2 (35-45) mm/Hg pO2 (80-100) mm/Hg HCO3 (21-28) mmol/L ABG pH (7.35-7.45) ABG Total CO2 (22-28) mmol/L ABG O2 Saturation (95-98) % ABG Base Excess (-2.0-3.0) mmol/L ABG Hemoglobin (11.7-17.4) g/dL ABG Carboxyhemoglobin (0.5-1.5) % POC ABG HHb (Measured) (0.0-5.0) % ABG Methemoglobin (0.0-3.0) % Daljit Test A-a O2 Difference mm/Hg Respiratory Index Hgb O2 Saturation (95.0-98.0) % Vent Mode FiO2 % Inspiratory BiPAP Expiratory BiPAP Sodium (132-148) mmol/L Potassium (3.6-5.2) mmol/L Chloride (98-107) mmol/L Carbon Dioxide (22-30) mmol/L Anion Gap (10-20) BUN (7-17) mg/dL Creatinine (0.7-1.2) mg/dL Est GFR ( Amer) Est GFR (Non-Af Amer) POC Glucose (mg/dL) 111 H 109 (65-110) mg/dL Random Glucose (65-105) mg/dL Calcium (8.6-10.4) mg/dl Phosphorus (2.5-4.5) mg/dL Magnesium (1.6-2.3) mg/dL Total Bilirubin (0.2-1.3) mg/dL AST (14-36) U/L ALT (9-52) U/L Alkaline Phosphatase (38-126) U/L Total Protein (6.3-8.3) g/dL Albumin (3.5-5.0) g/dL Globulin (2.2-3.9) gm/dL Albumin/Globulin Ratio (1.0-2.1) Mycoplasma pneumon IgM (NEGATIVE) 03/30/17 03/30/17 Range/Units 18:13 06:34 WBC (4.8-10.8) K/uL RBC (3.80-5.20) Mil/uL Hgb (11.0-16.0) g/dL Hct (34.0-47.0) % MCV (81.0-99.0) fL MCH (27.0-31.0) pg MCHC (33.0-37.0) g/dL RDW (11.5-14.5) % Plt Count (130-400) K/uL MPV (7.2-11.7) fL Neut % (Auto) (50.0-75.0) % Lymph % (Auto) (20.0-40.0) % [place] % (Auto) (0.0-10.0) % Eos % (Auto) (0.0-4.0) % Baso % (Auto) (0.0-2.0) % Neut # (1.8-7.0) K/uL Lymph # (1.0-4.3) K/uL [place] # (0.0-0.8) K/uL Eos # (0.0-0.7) K/uL Baso # (0.0-0.2) K/uL Neutrophils % (Manual) (50-75) % Band Neutrophils % (0-2) % Lymphocytes % (Manual) (20-40) % Monocytes % (Manual) (0-10) % Platelet Estimate (NORMAL) Hypochromasia (manual) Anisocytosis (manual) Stomatocytes Puncture Site pCO2 (35-45) mm/Hg pO2 (80-100) mm/Hg HCO3 (21-28) mmol/L ABG pH (7.35-7.45) ABG Total CO2 (22-28) mmol/L ABG O2 Saturation (95-98) % ABG Base Excess (-2.0-3.0) mmol/L ABG Hemoglobin (11.7-17.4) g/dL ABG Carboxyhemoglobin (0.5-1.5) % POC ABG HHb (Measured) (0.0-5.0) % ABG Methemoglobin (0.0-3.0) % Daljit Test A-a O2 Difference mm/Hg Respiratory Index Hgb O2 Saturation (95.0-98.0) % Vent Mode FiO2 % Inspiratory BiPAP Expiratory BiPAP Sodium (132-148) mmol/L Potassium (3.6-5.2) mmol/L Chloride (98-107) mmol/L Carbon Dioxide (22-30) mmol/L Anion Gap (10-20) BUN (7-17) mg/dL Creatinine (0.7-1.2) mg/dL Est GFR ( Amer) Est GFR (Non-Af Amer) POC Glucose (mg/dL) 95 (65-110) mg/dL Random Glucose (65-105) mg/dL Calcium (8.6-10.4) mg/dl Phosphorus (2.5-4.5) mg/dL Magnesium (1.6-2.3) mg/dL Total Bilirubin (0.2-1.3) mg/dL AST (14-36) U/L ALT (9-52) U/L Alkaline Phosphatase (38-126) U/L Total Protein (6.3-8.3) g/dL Albumin (3.5-5.0) g/dL Globulin (2.2-3.9) gm/dL Albumin/Globulin Ratio (1.0-2.1) Mycoplasma pneumon IgM Negative (NEGATIVE) Laboratory Results - last 24 hr 03/30/17 03/30/17 03/30/17 06:34 18:13 23:46 WBC RBC Hgb Hct MCV MCH MCHC RDW Plt Count MPV Neut % (Auto) Lymph % (Auto) [place] % (Auto) Eos % (Auto) Baso % (Auto) Neut # Lymph # [place] # Eos # Baso # Neutrophils % (Manual) Band Neutrophils % Lymphocytes % (Manual) Monocytes % (Manual) Platelet Estimate Hypochromasia (manual) Anisocytosis (manual) Stomatocytes Puncture Site pCO2 pO2 HCO3 ABG pH ABG Total CO2 ABG O2 Saturation ABG Base Excess ABG Hemoglobin ABG Carboxyhemoglobin POC ABG HHb (Measured) ABG Methemoglobin Daljit Test A-a O2 Difference Respiratory Index Hgb O2 Saturation Vent Mode FiO2 Inspiratory BiPAP Expiratory BiPAP Sodium Potassium Chloride Carbon Dioxide Anion Gap BUN Creatinine Est GFR ( Amer) Est GFR (Non-Af Amer) POC Glucose (mg/dL) 95 109 Random Glucose Calcium Phosphorus Magnesium Total Bilirubin AST ALT Alkaline Phosphatase Total Protein Albumin Globulin Albumin/Globulin Ratio Mycoplasma pneumon IgM Negative 03/31/17 03/31/17 03/31/17 05:38 06:28 06:28 WBC 11.3 H RBC 2.94 L Hgb 8.7 L Hct 26.2 L MCV 89.2 MCH 29.6 MCHC 33.2 RDW 18.5 H Plt Count 44 L MPV 10.6 Neut % (Auto) 88.7 H Lymph % (Auto) 2.0 L [place] % (Auto) 9.2 Eos % (Auto) 0.0 Baso % (Auto) 0.1 Neut # 10.1 H Lymph # 0.2 L [place] # 1.0 H Eos # 0.0 Baso # 0.0 Neutrophils % (Manual) 88 H Band Neutrophils % 1 Lymphocytes % (Manual) 1 L Monocytes % (Manual) 10 Platelet Estimate Decreased L Hypochromasia (manual) Slight Anisocytosis (manual) Moderate Stomatocytes Slight Puncture Site pCO2 pO2 HCO3 ABG pH ABG Total CO2 ABG O2 Saturation ABG Base Excess ABG Hemoglobin ABG Carboxyhemoglobin POC ABG HHb (Measured) ABG Methemoglobin Daljit Test A-a O2 Difference Respiratory Index Hgb O2 Saturation Vent Mode FiO2 Inspiratory BiPAP Expiratory BiPAP Sodium 133 Potassium 4.5 Chloride 100 Carbon Dioxide 32 H Anion Gap 6 L BUN 22 H Creatinine 0.4 L Est GFR ( Amer) > 60 Est GFR (Non-Af Amer) > 60 POC Glucose (mg/dL) 111 H Random Glucose 103 Calcium 8.4 L Phosphorus 3.9 Magnesium 1.7 Total Bilirubin 0.6 AST 42 H ALT 48 Alkaline Phosphatase 140 H Total Protein 5.8 L Albumin 2.3 L Globulin 3.5 Albumin/Globulin Ratio 0.7 L Mycoplasma pneumon IgM 03/31/17 03/31/17 08:19 11:32 WBC RBC Hgb Hct MCV MCH MCHC RDW Plt Count MPV Neut % (Auto) Lymph % (Auto) [place] % (Auto) Eos % (Auto) Baso % (Auto) Neut # Lymph # [place] # Eos # Baso # Neutrophils % (Manual) Band Neutrophils % Lymphocytes % (Manual) Monocytes % (Manual) Platelet Estimate Hypochromasia (manual) Anisocytosis (manual) Stomatocytes Puncture Site Rr pCO2 46 H pO2 61 L HCO3 28.0 ABG pH 7.41 ABG Total CO2 30.6 H ABG O2 Saturation 94.6 L ABG Base Excess 4.0 H ABG Hemoglobin 9.0 L ABG Carboxyhemoglobin 2.4 H POC ABG HHb (Measured) 5.2 H ABG Methemoglobin 0.6 Daljit Test Pos A-a O2 Difference 595.0 Respiratory Index 9.8 Hgb O2 Saturation 91.8 L Vent Mode Bipap FiO2 100.0 Inspiratory BiPAP 12 Expiratory BiPAP 6 Sodium Potassium Chloride Carbon Dioxide Anion Gap BUN Creatinine Est GFR ( Amer) Est GFR (Non-Af Amer) POC Glucose (mg/dL) 75 Random Glucose Calcium Phosphorus Magnesium Total Bilirubin AST ALT Alkaline Phosphatase Total Protein Albumin Globulin Albumin/Globulin Ratio Mycoplasma pneumon IgM Critical Care Progress Note - Nutrition Nutrition: Nutrition Category Date Time Status Heart Healthy Diet [DIET] Diets 03/27/17 Lunch Active Attending/Attestation - Attestation I have personally seen and examined this patient.: Yes I have fully participated in the care of the patient.: Yes I have reviewed all pertinent clinical information: Yes Notes (Text): Patient had been struggling with breathing not tolerated hiflow, patient was advised intubation/vent which initially refused but then agreed after speaking to son. Patient was intubated by me tube see intubation note for detail. Post intubation in about 20 mins spo2 100% on 100% fio2, CXR confirmed et tip 3cm from bon. Patient has h/o lupus, and is in [facility] DD infectious vs inflammatory , abx currently covering gm+, gm-, fungal, influenza, pcp. D/w Dr. Puckett about steroid pulse dose and agreed with to start Solumdertol 125mg q6hr iv for 3-4 days then taper. Spoke to Son Raymond at bed side, who is very upset her Mom's condition not improving, explained to him with now intubation may get better suction samples and would also request bronchoscopy. Discussed also with PMD Dr. Story. GI / DVT prophylaxis.
[2017-03-31 08:23] LABS: ABG ALLEN TEST POS; ARTERIAL BLOOD GAS O2 SAT 94.6 % (95-98); ARTERIAL BLOOD GAS PCO2 46 mm/Hg (35-45); ARTERIAL BLOOD GAS PH 7.41 (7.35-7.45); ARTERIAL BLOOD GAS PO2 61 mm/Hg (80-100); ARTERIAL BLOOD GAS TCO2 30.6 mmol/L (22-28)
[2017-03-31 08:50] LABS: ANISOCYTOSIS MODERATE; BANDS 1 % (0-2); LYMPHOCYTE 1 % (20-40); MONOCYTE 10 % (0-10); NEUTROPHIL 88 % (50-75); PLATELET ESTIMATE DECREASED (NORMAL); TOTAL CELLS COUNTED 100
[2017-03-31 08:51] LABS: HYPOCHROMIC SLIGHT; STOMATOCYTES SLIGHT
--- NOTE | 2017-03-31 09:29 | RAD ---
HISTORY: Pneumonia COMPARISON: 03/29/2017. FINDINGS: LUNGS: There is dense consolidation in both lungs with relative sparing of the lung apices, worse in the left lung go since the prior examination. PLEURA: Small pleural effusions, no pneumothorax apparent. There is fluid in the minor fissure. CARDIOVASCULAR: Normal. OSSEOUS STRUCTURES: No significant abnormalities. VISUALIZED UPPER ABDOMEN: Normal. OTHER FINDINGS: None. IMPRESSION: Extensive consolidation versus pulmonary edema in both lungs and pleural effusions, worse since the prior examination.
[2017-03-31] MEDS: Vancomycin 1 gm/NS 200 ml 1 GM/200 ML BAG IVPB SCH ×2 (10:29→20:30)
[2017-03-31] MEDS: Fluconazole IV 200mg/100 ml NS 100 ML IVPB SCH (10:29)
[2017-03-31] MEDS: MethylPREDNISolone 40 mg Vial IVP SCH (11:50)
[2017-03-31] MEDS: Atovaquone 750 mg/5 ml Susp UD PO SCH (11:52)
--- NOTE | 2017-03-31 12:54 | CP.PCM.PN ---
Subjective - Date & Time of Evaluation Date of Evaluation: 03/31/17 Time of Evaluation: 11:00 - Subjective Subjective: On bipap Objective - Vital Signs/Intake and Output Vital Signs (last 24 hours): Temp Pulse Resp BP Pulse Ox 97.5 F L 126 H 38 H 131/90 96 03/31/17 04:00 03/31/17 10:30 03/31/17 09:15 03/31/17 07:00 03/31/17 07:00 Intake and Output: 03/31/17 03/31/17 06:59 18:59 Intake Total 650 Output Total 300 20 Balance 350 -20 - Medications Medications: Current Medications Acetaminophen (Tylenol 325mg Tab) 650 mg PO Q6 PRN PRN Reason: Pain, moderate (4-7) Atovaquone (Mepron) 1,500 mg PO ACL [facility] Last Admin: 03/31/17 11:52 Dose: 1,500 mg Clopidogrel Bisulfate (Plavix) 75 mg PO DAILY [facility] Last Admin: 03/31/17 11:51 Dose: 75 mg Emollient Ointment (Vaseline Oint) 5 gm TOP PRN PRN PRN Reason: Dry skin Famotidine (Pepcid) 20 mg PO BID [facility] Last Admin: 03/31/17 11:50 Dose: 20 mg Gabapentin (Neurontin) 400 mg PO BID [facility] Last Admin: 03/31/17 11:51 Dose: 400 mg Hydroxychloroquine Sulfate (Plaquenil) 200 mg PO DAILY [facility] Last Admin: 03/31/17 11:52 Dose: 200 mg Doxycycline Hyclate 100 mg/ (Sodium Chloride) 100 mls @ 100 mls/hr IVPB Q12H [facility] Last Admin: 03/31/17 02:12 Dose: 100 mls/hr Fluconazole (Diflucan Iv 200 Mg/100 Ml Ns) 100 mls @ 100 mls/hr IVPB DAILY [facility] Last Admin: 03/31/17 10:29 Dose: 100 mls/hr Vancomycin/Sodium Chloride (Vancomycin 1 Gm/Ns 200 Ml) 1 gm in 200 mls @ 133.333 mls/hr IVPB Q12H [facility] Stop: 04/04/17 09:31 Last Admin: 03/31/17 10:29 Dose: 133.333 mls/hr Aztreonam 1 gm/ Sodium (Chloride) 100 mls @ 100 mls/hr IVPB Q8H [facility] Last Admin: 03/31/17 10:30 Dose: 100 mls/hr Metronidazole (Flagyl) 500 mg in 100 mls @ 100 mls/hr IVPB Q8 [facility] Last Admin: 03/31/17 05:29 Dose: 100 mls/hr Methylprednisolone (Solu-Medrol) 40 mg IVP Q12 [facility] Last Admin: 03/31/17 11:50 Dose: 40 mg Ondansetron HCl (Zofran Inj) 4 mg IVP Q6H PRN PRN Reason: Nausea/Vomiting Last Admin: 03/20/17 15:01 Dose: 4 mg Oseltamivir Phosphate (Tamiflu Cap) 75 mg PO BID [facility] Stop: 04/04/17 09:22 Last Admin: 03/31/17 11:57 Dose: 75 mg Rosuvastatin Calcium (Crestor) 20 mg PO HS [facility] Last Admin: 03/30/17 21:08 Dose: 20 mg - Labs Labs: 03/31/17 06:28 03/31/17 06:28 PT 16.2 SECONDS (9.7-12.2) H 03/20/17 04:08 INR 1.4 03/20/17 04:08 APTT 38 SECONDS (21-34) H D 03/20/17 04:08 - Head Exam Head Exam: ATRAUMATIC - Eye Exam Eye Exam: Normal appearance - ENT Exam ENT Exam: Mucous Membranes Dry - Respiratory Exam Respiratory Exam: Decreased Breath Sounds - Cardiovascular Exam Cardiovascular Exam: +S1, +S2 - GI/Abdominal Exam GI & Abdominal Exam: Normal Bowel Sounds Assessment and Plan (1) Thrombocytopenia Assessment & Plan: immunosuppression and immune mediated suspected element of sepsis slightly improved on steroids for bone marrow evaluation when consents and more clinically stable Status: Acute (2) Anemia Assessment & Plan: s/p 2U PRBC direct kimo negative low retic index; hypoproliferative erythroid response unlikely acute hemolysis anemia of chronic disease immunosuppression contribution on marrow for bone marrow evaluation when more stable Status: Acute (3) Coagulopathy Status: Acute
[2017-03-31] MEDS ORDERED: Sodium Chloride 0.9% 1,000 ML IV ONE (15:00)
[2017-03-31] MEDS: Propofol 10 mg/ml 1,000 MG/100 ML VIAL IV PRN ×2 (15:30→20:17)
--- NOTE | 2017-03-31 15:43 | RAD ---
HISTORY: intubation COMPARISON: 03/31/2017 at 7:26 a.m. FINDINGS: The endotracheal tube terminates 3 cm proximal to the bon. LUNGS: There is interval improved aeration in both lungs with persistent consolidation in the both lungs with relative sparing of the lung apices. PLEURA: No significant pleural effusion identified, no pneumothorax apparent. CARDIOVASCULAR: Normal. OSSEOUS STRUCTURES: No significant abnormalities. VISUALIZED UPPER ABDOMEN: Normal. OTHER FINDINGS: None. IMPRESSION: Interval improved aeration in the lungs. Endotracheal tube terminates 3 cm proximal to the bon. Multifocal consolidation in the lung which may represent multifocal pneumonia or pulmonary edema.
[2017-03-31] MEDS ORDERED: Etomidate 20 mg/10ml Inj IV ONE (16:28)
[2017-03-31] MEDS ORDERED: MethylPREDNISolone 1 gm Vial IV ONE (16:47)
[2017-03-31 16:55] LABS: ABG ALLEN TEST POS; ARTERIAL BLOOD GAS HCO3 27.1 mmol/L (21-28); ARTERIAL BLOOD GAS PCO2 52 mm/Hg (35-45); ARTERIAL BLOOD GAS PH 7.36 (7.35-7.45); ARTERIAL BLOOD GAS PO2 88 mm/Hg (80-100)
[2017-03-31] MEDS ORDERED: METHYLPREDNISOLONE IV ONE (17:00)
[2017-03-31] MEDS ORDERED: MethylPREDNISolone 40 mg Vial IVP SCH (17:00)
[2017-03-31] MEDS ORDERED: SODIUM CHLORIDE 0.9% IV ONE (17:00)
--- NOTE | 2017-03-31 23:27 | CP.PCM.PN ---
Subjective - Date & Time of Evaluation Date of Evaluation: 03/31/17 Time of Evaluation: 18:05 - Subjective Subjective: Patient continues with BIPAP due to persistant low pO2. Antibiotic coverage in place. Discuss case with Dr Taylor and will begin pulse therapy with solumedrol 125 mg IV q 6 hours. Continue all other supportive measures and repeat sedimentation rate in AM. Objective - Vital Signs/Intake and Output Vital Signs (last 24 hours): Temp Pulse Resp BP Pulse Ox 97.7 F 97 H 25 H 101/72 100 03/31/17 20:00 03/31/17 21:00 03/31/17 21:00 03/31/17 21:00 03/31/17 21:00 Intake and Output: 03/31/17 04/01/17 18:59 06:59 Intake Total 1184 165 Output Total 174 14 Balance 1010 151 - Medications Medications: Current Medications Acetaminophen (Tylenol 325mg Tab) 650 mg PO Q6 PRN PRN Reason: Pain, moderate (4-7) Atovaquone (Mepron) 1,500 mg PO ACL [facility] Last Admin: 03/31/17 11:52 Dose: 1,500 mg Clopidogrel Bisulfate (Plavix) 75 mg PO DAILY [facility] Last Admin: 03/31/17 11:51 Dose: 75 mg Emollient Ointment (Vaseline Oint) 5 gm TOP Q4 PRN PRN Reason: DRY SKIN Famotidine (Pepcid) 20 mg PO BID [facility] Last Admin: 03/31/17 17:25 Dose: 20 mg Gabapentin (Neurontin) 400 mg PO BID [facility] Last Admin: 03/31/17 17:25 Dose: 400 mg Hydroxychloroquine Sulfate (Plaquenil) 200 mg PO DAILY [facility] Last Admin: 03/31/17 11:52 Dose: 200 mg Doxycycline Hyclate 100 mg/ (Sodium Chloride) 100 mls @ 100 mls/hr IVPB Q12H [facility] Last Admin: 03/31/17 14:18 Dose: 100 mls/hr Fluconazole (Diflucan Iv 200 Mg/100 Ml Ns) 100 mls @ 100 mls/hr IVPB DAILY [facility] Last Admin: 03/31/17 10:29 Dose: 100 mls/hr Vancomycin/Sodium Chloride (Vancomycin 1 Gm/Ns 200 Ml) 1 gm in 200 mls @ 133.333 mls/hr IVPB Q12H [facility] Stop: 04/04/17 09:31 Last Admin: 03/31/17 20:30 Dose: 133.333 mls/hr Aztreonam 1 gm/ Sodium (Chloride) 100 mls @ 100 mls/hr IVPB Q8H [facility] Last Admin: 03/31/17 17:37 Dose: 100 mls/hr Metronidazole (Flagyl) 500 mg in 100 mls @ 100 mls/hr IVPB Q8 [facility] Last Admin: 03/31/17 21:00 Dose: 100 mls/hr Propofol (Diprivan) 1,000 mg in 100 mls @ 2.494 mls/hr IV .Q24H PRN; Protocol; 5 MCG/KG/MIN PRN Reason: TITRATE PER MD ORDER Last Admin: 03/31/17 20:17 Dose: 30.06 mcg/kg/min, 15 mls/hr Sodium Chloride (Sodium Chloride 0.9%) 1,000 mls @ 100 mls/hr IV .Q10H [facility] Stop: 04/01/17 00:59 Last Admin: 03/31/17 15:00 Dose: 100 mls/hr Methylprednisolone (Solu-Medrol) 125 mg IVP Q6H [facility] Last Admin: 03/31/17 16:48 Dose: Not Given Ondansetron HCl (Zofran Inj) 4 mg IVP Q6H PRN PRN Reason: Nausea/Vomiting Last Admin: 03/20/17 15:01 Dose: 4 mg Oseltamivir Phosphate (Tamiflu Cap) 75 mg PO BID [facility] Stop: 04/04/17 09:22 Last Admin: 03/31/17 17:24 Dose: 75 mg Rosuvastatin Calcium (Crestor) 20 mg PO HS [facility] Last Admin: 03/31/17 21:07 Dose: 20 mg - Labs Labs: 03/31/17 06:28 03/31/17 06:28 PT 16.2 SECONDS (9.7-12.2) H 03/20/17 04:08 INR 1.4 03/20/17 04:08 APTT 38 SECONDS (21-34) H D 03/20/17 04:08 - Constitutional Appears: Chronically Ill - Head Exam Head Exam: NORMOCEPHALIC - Eye Exam Eye Exam: Normal appearance Pupil Exam: NORMAL ACCOMODATION - ENT Exam ENT Exam: Normal Exam - Neck Exam Neck Exam: Normal Inspection - Respiratory Exam Respiratory Exam: Decreased Breath Sounds - GI/Abdominal Exam GI & Abdominal Exam: Normal Bowel Sounds - Exam External exam: NORMAL EXTERNAL EXAM - Back Exam Back Exam: NORMAL INSPECTION - Neurological Exam Neurological Exam: Awake Assessment and Plan (1) Systemic lupus Status: Acute (2) Anemia Status: Acute (3) CHF (congestive heart failure) Status: Acute (4) Coagulopathy Status: Acute (5) Leg pain, bilateral Status: Acute
[2017-04-01] MEDS: Aztreonam 1 GM in Sodium Chloride 0.9% 100 ML IVPB SCH ×3 (01:29→18:04)
[2017-04-01] MEDS: metroNIDAZOLE IV 500 mg/100 ml 500 MG/100 ML BAG IVPB SCH ×3 (05:00→21:29)
[2017-04-01] MEDS: Propofol 10 mg/ml 1,000 MG/100 ML VIAL IV PRN ×3 (05:15→20:33)
[2017-04-01 06:32] LABS: ABG ALLEN TEST POS; ARTERIAL BLOOD GAS HCO3 28.4 mmol/L (21-28); ARTERIAL BLOOD GAS HEMOGLOBIN 7.7 g/dL (11.7-17.4); ARTERIAL BLOOD GAS O2 SAT 96.8 % (95-98); ARTERIAL BLOOD GAS PCO2 37 mm/Hg (35-45); ARTERIAL BLOOD GAS PH 7.49 (7.35-7.45); ARTERIAL BLOOD GAS PO2 63 mm/Hg (80-100); ARTERIAL BLOOD GAS TCO2 29.3 mmol/L (22-28)
[2017-04-01 07:06] LABS: BASO % 0.2 % (0.0-2.0); EOS % 0.1 % (0.0-4.0); LYMPH # 0.2 K/uL (1.0-4.3); LYMPH % 4.9 % (20.0-40.0); MEAN CELL VOLUME 88.1 fL (81.0-99.0); MEAN CORPUSCULAR HEMOGLOBIN 29.5 pg (27.0-31.0); MEAN CORPUSCULAR HGB CONC 33.4 g/dL (33.0-37.0); MEAN PLATELET VOLUME 10.2 fL (7.2-11.7); MONO # 0.3 K/uL (0.0-0.8); MONO % 7.8 % (0.0-10.0); NEUT # 3.5 K/uL (1.8-7.0); NRBC % 0.2 % (0.0-2.0); RBC 2.38 Mil/uL (3.80-5.20); RED CELL DISTRIBUTION WIDTH 18.4 % (11.5-14.5)
[2017-04-01 07:12] LABS: PLATELET COUNT 26 K/uL (130-400)
--- NOTE | 2017-04-01 07:24 | CP.PCM.PN ---
Subjective - Date & Time of Evaluation Date of Evaluation: 04/01/17 Time of Evaluation: 07:19 - Subjective Subjective: Significant improvement in FIO2 requirement currently only on 40% spo2 94%, peep of 10, RR 24 on vent. Likely improvement from pulse dose steroids rather just form ventilation, will follow up repeat cxr. Objective - Vital Signs/Intake and Output Vital Signs (last 24 hours): Temp Pulse Resp BP Pulse Ox 97.5 F L 96 H 25 H 104/77 91 L 04/01/17 04:00 04/01/17 06:31 04/01/17 06:31 04/01/17 06:32 04/01/17 06:31 Intake and Output: 04/01/17 04/01/17 06:59 18:59 Intake Total 1345 Output Total 399 Balance 946 - Medications Medications: Current Medications Acetaminophen (Tylenol 325mg Tab) 650 mg PO Q6 PRN PRN Reason: Pain, moderate (4-7) Atovaquone (Mepron) 1,500 mg PO ACL [facility] Last Admin: 03/31/17 11:52 Dose: 1,500 mg Clopidogrel Bisulfate (Plavix) 75 mg PO DAILY [facility] Last Admin: 03/31/17 11:51 Dose: 75 mg Emollient Ointment (Vaseline Oint) 5 gm TOP Q4 PRN PRN Reason: DRY SKIN Famotidine (Pepcid) 20 mg PO BID [facility] Last Admin: 03/31/17 17:25 Dose: 20 mg Gabapentin (Neurontin) 400 mg PO BID [facility] Last Admin: 03/31/17 17:25 Dose: 400 mg Hydroxychloroquine Sulfate (Plaquenil) 200 mg PO DAILY [facility] Last Admin: 03/31/17 11:52 Dose: 200 mg Doxycycline Hyclate 100 mg/ (Sodium Chloride) 100 mls @ 100 mls/hr IVPB Q12H [facility] Last Admin: 04/01/17 01:00 Dose: 100 mls/hr Fluconazole (Diflucan Iv 200 Mg/100 Ml Ns) 100 mls @ 100 mls/hr IVPB DAILY [facility] Last Admin: 03/31/17 10:29 Dose: 100 mls/hr Vancomycin/Sodium Chloride (Vancomycin 1 Gm/Ns 200 Ml) 1 gm in 200 mls @ 133.333 mls/hr IVPB Q12H [facility] Stop: 04/04/17 09:31 Last Admin: 03/31/17 20:30 Dose: 133.333 mls/hr Aztreonam 1 gm/ Sodium (Chloride) 100 mls @ 100 mls/hr IVPB Q8H [facility] Last Admin: 04/01/17 01:29 Dose: 100 mls/hr Metronidazole (Flagyl) 500 mg in 100 mls @ 100 mls/hr IVPB Q8 [facility] Last Admin: 04/01/17 05:00 Dose: 100 mls/hr Propofol (Diprivan) 1,000 mg in 100 mls @ 2.494 mls/hr IV .Q24H PRN; Protocol; 5 MCG/KG/MIN PRN Reason: TITRATE PER MD ORDER Last Titration: 04/01/17 06:00 Dose: 40.09 mcg/kg/min, 20 mls/hr Methylprednisolone (Solu-Medrol) 125 mg IVP Q6H [facility] Last Admin: 04/01/17 05:00 Dose: 125 mg Ondansetron HCl (Zofran Inj) 4 mg IVP Q6H PRN PRN Reason: Nausea/Vomiting Last Admin: 03/20/17 15:01 Dose: 4 mg Oseltamivir Phosphate (Tamiflu Cap) 75 mg PO BID [facility] Stop: 04/04/17 09:22 Last Admin: 03/31/17 17:24 Dose: 75 mg Rosuvastatin Calcium (Crestor) 20 mg PO HS [facility] Last Admin: 03/31/17 21:07 Dose: 20 mg - Labs Labs: 04/01/17 06:58 03/31/17 06:28 PT 16.2 SECONDS (9.7-12.2) H 03/20/17 04:08 INR 1.4 03/20/17 04:08 APTT 38 SECONDS (21-34) H D 03/20/17 04:08
[2017-04-01 08:21] LABS: ALB/GLOB RATIO 0.8 (1.0-2.1); ALBUMIN 1.9 g/dL (3.5-5.0); ALT/SGPT 34 U/L (9-52); AST/SGOT 35 U/L (14-36); BLOOD UREA NITROGEN 29 mg/dL (7-17); GFR AFRICAN-AMERICAN > 60; GFR NON-AFRICAN AMERICAN > 60; MAGNESIUM 1.6 mg/dL (1.6-2.3)
[2017-04-01 08:41] LABS: BANDS 1 % (0-2); TOTAL CELLS COUNTED 100
[2017-04-01 08:42] LABS: ANISOCYTOSIS SLIGHT; LYMPHOCYTE 6 % (20-40); MONOCYTE 6 % (0-10); NEUTROPHIL 87 % (50-75); PLATELET ESTIMATE MARKEDLY DECREASED (NORMAL)
[2017-04-01 08:43] LABS: HYPOCHROMIC SLIGHT; OVALOCYTES SLIGHT; POIKILOCYTOSIS SLIGHT
[2017-04-01 08:44] LABS: TEARDROP CELLS SLIGHT
[2017-04-01] MEDS: Vancomycin 1 gm/NS 200 ml 1 GM/200 ML BAG IVPB SCH (09:23)
[2017-04-01] MEDS: Fluconazole IV 200mg/100 ml NS 100 ML IVPB SCH (09:25)
--- NOTE | 2017-04-01 10:51 | RAD ---
PROCEDURE: CHEST RADIOGRAPH, 1 VIEW HISTORY: ICU Routine/Intubated COMPARISON: 03/31/2017 FINDINGS: The endotracheal tube terminates 2 cm proximal to the bon. The nasogastric tube terminates in the stomach. LUNGS: There is interval mild improved aeration in the right lung and left mid lung. There is persistent multifocal consolidation in the lungs. PLEURA: No pneumothorax or pleural fluid seen. CARDIOVASCULAR: Normal. OSSEOUS STRUCTURES: No significant abnormalities. VISUALIZED UPPER ABDOMEN: Normal. OTHER FINDINGS: None. IMPRESSION: Interval improved aeration in the right lung and left mid lung with persistent multifocal pneumonia versus pulmonary edema.
[2017-04-01] MEDS: Atovaquone 750 mg/5 ml Susp UD PO SCH (11:39)
[2017-04-01] MEDS: Albuterol-Ipratrop 3 mg / 0.5 (3 ml) UD INH SCH ×2 (14:03→20:14)
--- NOTE | 2017-04-01 14:36 | CP.CCUPN ---
CCU Subjective - Physician Review Events Since Last Encounter (Free Text): 04/01/17 14:32 patient was intubated yesterday. had oxygen requirement improved markedly. Patient is currently on FiO2 50%. Thick secretions noted, minimal blood in the secretions noted. Patient is sedated. Tolerating the feeding. Sacral decubiti noted. Patient's vital signs noted. No fever Chest diffuse rhonchi. regular heart sound. Urine output is improving Edema noted Currently patient is on high-dose corticosteroid. X-ray of the chest is showing improvement in the infiltrative changes, but still having bilateral diffuse infiltrate. i spoke to the oncologist, most likely problems related to the lupus. Possibly patient has autoimmune disease with pancytopenia, and associated with interstitial lung disease. Bronchoscopy may not yield much, will get a tracheal aspirate for bacterial culture. On antibiotic. Continue the steroid. Rheumatology evaluation and follow-up needed. I will follow the patient CCU Objective - Vital Signs / Intake & Output Vital Signs (Last 4 hours): Vital Signs Temp Pulse Resp BP Pulse Ox 04/01/17 12:00 98.1 F 87 25 H 102/70 94 L 04/01/17 11:00 91 H 25 H 105/69 96 Intake and Output (Last 8hrs): Intake & Output 03/31/17 04/01/17 04/01/17 22:59 06:59 14:59 Intake Total 1055 825 560 Output Total 175 280 125 Balance 880 545 435 Weight 190 lb 4 oz Intake: IV 100 115 Intake, IV Amount 945 625 430 Left Antecubital Mid-Line 145 125 130 #2 Left Antecubital Mid-line 800 500 300 Tube Feeding 10 85 130 Output: Urine 175 280 125 Urethral (Lewis) 175 280 125 - Physical Exam Head: Positive for: Atraumatic, Normocephalic Pupils: Positive for: PERRL Extroacular Muscles: Positive for: EOMI Conjunctiva: Positive for: Normal Mouth: Positive for: Moist Mucous Membranes Neck: Positive for: Normal Range of Motion Respiratory/Chest: Positive for: Accessory Muscle Use, Wheezes, Rales, Other ( BiPAP). Negative for: Rhonchi Cardiovascular: Positive for: Normal S1, S2, Tachycardic Abdomen: Positive for: Normal Bowel Sounds. Negative for: Tenderness, Distention, Peritoneal Signs Upper Extremity: Positive for: Normal Inspection Lower Extremity: Positive for: Edema. Negative for: Tenderness Neurological: Positive for: GCS=15, Speech Normal Skin: Positive for: Warm, Dry. Negative for: Rashes Psychiatric: Positive for: Alert, Oriented x 3, Normal Insight, Normal Concentration - Medications Active Medications: Active Medications Generic Name Dose Route Start Last Admin Trade Name Freq PRN Reason Stop Dose Admin Acetaminophen 650 mg 03/31/17 12:52 Tylenol 325mg Tab PO Q6 PRN Pain, moderate (4-7) Albuterol/Ipratropium 3 ml 04/01/17 14:00 04/01/17 14:03 Duoneb 3 Mg/0.5 Mg (3 Ml) Ud INH 3 ml RQ6 IMAN Administration Atovaquone 1,500 mg 03/30/17 11:30 04/01/17 11:39 Mepron PO 1,500 mg ACL IMAN Administration Clopidogrel Bisulfate 75 mg 03/23/17 10:00 04/01/17 09:41 Plavix PO Not Given DAILY IMAN Emollient Ointment 5 gm 03/31/17 12:18 Vaseline Oint TOP Q4 PRN DRY SKIN Famotidine 20 mg 03/23/17 10:00 04/01/17 09:24 Pepcid PO 20 mg BID IMAN Administration Gabapentin 400 mg 03/23/17 10:00 04/01/17 09:24 Neurontin PO 400 mg BID IMAN Administration Hydroxychloroquine Sulfate 200 mg 03/28/17 10:00 04/01/17 09:24 Plaquenil PO 200 mg DAILY IMAN Administration Doxycycline Hyclate 100 mg/ 100 mls @ 100 mls/hr 03/29/17 14:00 04/01/17 13: 33 Sodium Chloride IVPB 100 mls/hr Q12H IMAN Administration Fluconazole 100 mls @ 100 mls/hr 03/30/17 10:00 04/01/17 09:25 Diflucan Iv 200 Mg/100 Ml Ns IVPB 100 mls/hr DAILY IMAN Administration Vancomycin/Sodium Chloride 1 gm in 200 mls @ 133.333 mls/hr 03/30/17 09:30 09:23 Vancomycin 1 Gm/Ns 200 Ml IVPB 04/04/17 09:31 133.333 mls/hr Q12H IMAN Administration Aztreonam 1 gm/ Sodium 100 mls @ 100 mls/hr 03/30/17 10:30 04/01/17 09:33 Chloride IVPB 100 mls/hr Q8H IMAN Administration Metronidazole 500 mg in 100 mls @ 100 mls/hr 03/30/17 14:00 04/01/17 13:34 Flagyl IVPB 100 mls/hr Q8 IMAN Administration Propofol 1,000 mg in 100 mls @ 2.494 mls/hr 03/31/17 15:15 04/01/17 06:00 Diprivan IV 20 mcg/kg/min .Q24H PRN 9.977 mls/hr TITRATE PER MD ORDER Titration Protocol 5 MCG/KG/MIN Methylprednisolone 125 mg 03/31/17 17:00 04/01/17 11:39 Solu-Medrol IVP 125 mg Q6H IMAN Administration Ondansetron HCl 4 mg 03/20/17 15:00 03/20/17 15:01 Zofran Inj IVP 4 mg Q6H PRN Administration Nausea/Vomiting Oseltamivir Phosphate 75 mg 03/30/17 10:00 04/01/17 09:41 Tamiflu Cap PO 04/04/17 09:22 75 mg BID IMAN Administration Rosuvastatin Calcium 20 mg 03/23/17 22:00 03/31/17 21:07 Crestor PO 20 mg HS IMAN Administration - Patient Studies Lab Studies: Microbiology Studies 03/29/17 Unknown MRSA Culture (Admit) - Final Naris MRSA NOT DETECTED Lab Studies 04/01/17 04/01/17 04/01/17 Range/Units 11:41 06:58 06:58 WBC (4.8-10.8) K/uL RBC (3.80-5.20) Mil/uL Hgb (11.0-16.0) g/dL Hct (34.0-47.0) % MCV (81.0-99.0) fL MCH (27.0-31.0) pg MCHC (33.0-37.0) g/dL RDW (11.5-14.5) % Plt Count (130-400) K/uL MPV (7.2-11.7) fL Neut % (Auto) (50.0-75.0) % Lymph % (Auto) (20.0-40.0) % Alpine % (Auto) (0.0-10.0) % Eos % (Auto) (0.0-4.0) % Baso % (Auto) (0.0-2.0) % Neut # (1.8-7.0) K/uL Lymph # (1.0-4.3) K/uL Alpine # (0.0-0.8) K/uL Eos # (0.0-0.7) K/uL Baso # (0.0-0.2) K/uL Neutrophils % (Manual) (50-75) % Band Neutrophils % (0-2) % Lymphocytes % (Manual) (20-40) % Monocytes % (Manual) (0-10) % Platelet Estimate (NORMAL) Hypochromasia (manual) Poikilocytosis (manual Anisocytosis (manual) Tear Drop Cells Ovalocytes ESR 55 H (0-20) mm/hr Puncture Site pCO2 (35-45) mm/Hg pO2 (80-100) mm/Hg HCO3 (21-28) mmol/L ABG pH (7.35-7.45) ABG Total CO2 (22-28) mmol/L ABG O2 Saturation (95-98) % ABG Base Excess (-2.0-3.0) mmol/L ABG Hemoglobin (11.7-17.4) g/dL ABG Carboxyhemoglobin (0.5-1.5) % POC ABG HHb (Measured) (0.0-5.0) % ABG Methemoglobin (0.0-3.0) % Daljit Test ABG Potassium (3.6-5.2) mmol/L A-a O2 Difference mm/Hg Respiratory Index Hgb O2 Saturation (95.0-98.0) % Sodium 134 (132-148) mmol/l Chloride 104 (98-107) mmol/L Glucose (65-105) mg/dl Lactate (0.7-2.1) mmol/L Vent Mode Mechanical Rate FiO2 % Tidal Volume PEEP Potassium 4.1 (3.6-5.2) mmol/L Carbon Dioxide 28 (22-30) mmol/L Anion Gap 6 L (10-20) BUN 29 H (7-17) mg/dL Creatinine 0.5 L (0.7-1.2) mg/dL Est GFR ( Amer) > 60 Est GFR (Non-Af Amer) > 60 POC Glucose (mg/dL) 123 H (65-110) mg/dL Random Glucose 123 H (65-105) mg/dL Calcium 8.0 L (8.6-10.4) mg/dl Phosphorus 3.1 (2.5-4.5) mg/dL Magnesium 1.6 (1.6-2.3) mg/dL Total Bilirubin 0.6 (0.2-1.3) mg/dL AST 35 (14-36) U/L ALT 34 (9-52) U/L Alkaline Phosphatase 117 (38-126) U/L Total Protein 4.1 L (6.3-8.3) g/dL Albumin 1.9 L (3.5-5.0) g/dL Globulin 2.2 (2.2-3.9) gm/dL Albumin/Globulin Ratio 0.8 L (1.0-2.1) Arterial Blood Potassium (3.6-5.2) mmol/L 04/01/17 04/01/17 04/01/17 Range/Units 06:58 05:29 05:28 WBC 4.0 L D (4.8-10.8) K/uL RBC 2.38 L (3.80-5.20) Mil/uL Hgb 7.0 L (11.0-16.0) g/dL Hct 20.9 L (34.0-47.0) % MCV 88.1 (81.0-99.0) fL MCH 29.5 (27.0-31.0) pg MCHC 33.4 (33.0-37.0) g/dL RDW 18.4 H (11.5-14.5) % Plt Count 26 L* D (130-400) K/uL MPV 10.2 (7.2-11.7) fL Neut % (Auto) 87.0 H (50.0-75.0) % Lymph % (Auto) 4.9 L (20.0-40.0) % Alpine % (Auto) 7.8 (0.0-10.0) % Eos % (Auto) 0.1 (0.0-4.0) % Baso % (Auto) 0.2 (0.0-2.0) % Neut # 3.5 (1.8-7.0) K/uL Lymph # 0.2 L (1.0-4.3) K/uL Alpine # 0.3 (0.0-0.8) K/uL Eos # 0.0 (0.0-0.7) K/uL Baso # 0.0 (0.0-0.2) K/uL Neutrophils % (Manual) 87 H (50-75) % Band Neutrophils % 1 (0-2) % Lymphocytes % (Manual) 6 L (20-40) % Monocytes % (Manual) 6 (0-10) % Platelet Estimate Markedly decreased L (NORMAL) Hypochromasia (manual) Slight Poikilocytosis (manual Slight Anisocytosis (manual) Slight Tear Drop Cells Slight Ovalocytes Slight ESR (0-20) mm/hr Puncture Site Rr pCO2 37 (35-45) mm/Hg pO2 63 L (80-100) mm/Hg HCO3 28.4 H (21-28) mmol/L ABG pH 7.49 H (7.35-7.45) ABG Total CO2 29.3 H (22-28) mmol/L ABG O2 Saturation 96.8 (95-98) % ABG Base Excess 4.5 H (-2.0-3.0) mmol/L ABG Hemoglobin 7.7 L (11.7-17.4) g/dL ABG Carboxyhemoglobin 2.3 H (0.5-1.5) % POC ABG HHb (Measured) 3.1 (0.0-5.0) % ABG Methemoglobin 0.6 (0.0-3.0) % Daljit Test Pos ABG Potassium (3.6-5.2) mmol/L A-a O2 Difference 354.0 mm/Hg Respiratory Index 5.6 Hgb O2 Saturation 94.0 L (95.0-98.0) % Sodium (132-148) mmol/l Chloride (98-107) mmol/L Glucose (65-105) mg/dl Lactate (0.7-2.1) mmol/L Vent Mode Prvc Mechanical Rate 25 FiO2 65.0 % Tidal Volume 450 PEEP 10 Potassium (3.6-5.2) mmol/L Carbon Dioxide (22-30) mmol/L Anion Gap (10-20) BUN (7-17) mg/dL Creatinine (0.7-1.2) mg/dL Est GFR ( Amer) Est GFR (Non-Af Amer) POC Glucose (mg/dL) 120 H (65-110) mg/dL Random Glucose (65-105) mg/dL Calcium (8.6-10.4) mg/dl Phosphorus (2.5-4.5) mg/dL Magnesium (1.6-2.3) mg/dL Total Bilirubin (0.2-1.3) mg/dL AST (14-36) U/L ALT (9-52) U/L Alkaline Phosphatase (38-126) U/L Total Protein (6.3-8.3) g/dL Albumin (3.5-5.0) g/dL Globulin (2.2-3.9) gm/dL Albumin/Globulin Ratio (1.0-2.1) Arterial Blood Potassium (3.6-5.2) mmol/L 03/31/17 03/31/17 03/31/17 Range/Units 23:38 17:55 16:50 WBC (4.8-10.8) K/uL RBC (3.80-5.20) Mil/uL Hgb (11.0-16.0) g/dL Hct (34.0-47.0) % MCV (81.0-99.0) fL MCH (27.0-31.0) pg MCHC (33.0-37.0) g/dL RDW (11.5-14.5) % Plt Count (130-400) K/uL MPV (7.2-11.7) fL Neut % (Auto) (50.0-75.0) % Lymph % (Auto) (20.0-40.0) % Alpine % (Auto) (0.0-10.0) % Eos % (Auto) (0.0-4.0) % Baso % (Auto) (0.0-2.0) % Neut # (1.8-7.0) K/uL Lymph # (1.0-4.3) K/uL Alpine # (0.0-0.8) K/uL Eos # (0.0-0.7) K/uL Baso # (0.0-0.2) K/uL Neutrophils % (Manual) (50-75) % Band Neutrophils % (0-2) % Lymphocytes % (Manual) (20-40) % Monocytes % (Manual) (0-10) % Platelet Estimate (NORMAL) Hypochromasia (manual) Poikilocytosis (manual Anisocytosis (manual) Tear Drop Cells Ovalocytes ESR (0-20) mm/hr Puncture Site Rradial pCO2 52 H (35-45) mm/Hg pO2 88 (80-100) mm/Hg HCO3 27.1 (21-28) mmol/L ABG pH 7.36 (7.35-7.45) ABG Total CO2 31.0 H (22-28) mmol/L ABG O2 Saturation 99.0 H (95-98) % ABG Base Excess 2.8 (-2.0-3.0) mmol/L ABG Hemoglobin (11.7-17.4) g/dL ABG Carboxyhemoglobin (0.5-1.5) % POC ABG HHb (Measured) (0.0-5.0) % ABG Methemoglobin (0.0-3.0) % Daljit Test Pos ABG Potassium 4.3 (3.6-5.2) mmol/L A-a O2 Difference 560.0 mm/Hg Respiratory Index 6.4 Hgb O2 Saturation (95.0-98.0) % Sodium 138.0 (132-148) mmol/l Chloride 111.0 H (98-107) mmol/L Glucose 93 (65-105) mg/dl Lactate 1.2 (0.7-2.1) mmol/L Vent Mode Prvc Mechanical Rate 16 FiO2 100.0 % Tidal Volume 500 PEEP 5 Potassium (3.6-5.2) mmol/L Carbon Dioxide (22-30) mmol/L Anion Gap (10-20) BUN (7-17) mg/dL Creatinine (0.7-1.2) mg/dL Est GFR ( Amer) Est GFR (Non-Af Amer) POC Glucose (mg/dL) 121 H 93 (65-110) mg/dL Random Glucose (65-105) mg/dL Calcium (8.6-10.4) mg/dl Phosphorus (2.5-4.5) mg/dL Magnesium (1.6-2.3) mg/dL Total Bilirubin (0.2-1.3) mg/dL AST (14-36) U/L ALT (9-52) U/L Alkaline Phosphatase (38-126) U/L Total Protein (6.3-8.3) g/dL Albumin (3.5-5.0) g/dL Globulin (2.2-3.9) gm/dL Albumin/Globulin Ratio (1.0-2.1) Arterial Blood Potassium 4.3 (3.6-5.2) mmol/L Laboratory Results - last 24 hr 03/31/17 03/31/17 03/31/17 16:50 17:55 23:38 WBC RBC Hgb Hct MCV MCH MCHC RDW Plt Count MPV Neut % (Auto) Lymph % (Auto) Alpine % (Auto) Eos % (Auto) Baso % (Auto) Neut # Lymph # Alpine # Eos # Baso # Neutrophils % (Manual) Band Neutrophils % Lymphocytes % (Manual) Monocytes % (Manual) Platelet Estimate Hypochromasia (manual) Poikilocytosis (manual Anisocytosis (manual) Tear Drop Cells Ovalocytes ESR Puncture Site Rradial pCO2 52 H pO2 88 HCO3 27.1 ABG pH 7.36 ABG Total CO2 31.0 H ABG O2 Saturation 99.0 H ABG Base Excess 2.8 ABG Hemoglobin ABG Carboxyhemoglobin POC ABG HHb (Measured) ABG Methemoglobin Daljit Test Pos ABG Potassium 4.3 A-a O2 Difference 560.0 Respiratory Index 6.4 Hgb O2 Saturation Sodium 138.0 Chloride 111.0 H Glucose 93 Lactate 1.2 Vent Mode Prvc Mechanical Rate 16 FiO2 100.0 Tidal Volume 500 PEEP 5 Potassium Carbon Dioxide Anion Gap BUN Creatinine Est GFR ( Amer) Est GFR (Non-Af Amer) POC Glucose (mg/dL) 93 121 H Random Glucose Calcium Phosphorus Magnesium Total Bilirubin AST ALT Alkaline Phosphatase Total Protein Albumin Globulin Albumin/Globulin Ratio Arterial Blood Potassium 4.3 04/01/17 04/01/17 04/01/17 05:28 05:29 06:58 WBC 4.0 L D RBC 2.38 L Hgb 7.0 L Hct 20.9 L MCV 88.1 MCH 29.5 MCHC 33.4 RDW 18.4 H Plt Count 26 L* D MPV 10.2 Neut % (Auto) 87.0 H Lymph % (Auto) 4.9 L Alpine % (Auto) 7.8 Eos % (Auto) 0.1 Baso % (Auto) 0.2 Neut # 3.5 Lymph # 0.2 L Alpine # 0.3 Eos # 0.0 Baso # 0.0 Neutrophils % (Manual) 87 H Band Neutrophils % 1 Lymphocytes % (Manual) 6 L Monocytes % (Manual) 6 Platelet Estimate Markedly decreased L Hypochromasia (manual) Slight Poikilocytosis (manual Slight Anisocytosis (manual) Slight Tear Drop Cells Slight Ovalocytes Slight ESR Puncture Site Rr pCO2 37 pO2 63 L HCO3 28.4 H ABG pH 7.49 H ABG Total CO2 29.3 H ABG O2 Saturation 96.8 ABG Base Excess 4.5 H ABG Hemoglobin 7.7 L ABG Carboxyhemoglobin 2.3 H POC ABG HHb (Measured) 3.1 ABG Methemoglobin 0.6 Daljit Test Pos ABG Potassium A-a O2 Difference 354.0 Respiratory Index 5.6 Hgb O2 Saturation 94.0 L Sodium Chloride Glucose Lactate Vent Mode Prvc Mechanical Rate 25 FiO2 65.0 Tidal Volume 450 PEEP 10 Potassium Carbon Dioxide Anion Gap BUN Creatinine Est GFR ( Amer) Est GFR (Non-Af Amer) POC Glucose (mg/dL) 120 H Random Glucose Calcium Phosphorus Magnesium Total Bilirubin AST ALT Alkaline Phosphatase Total Protein Albumin Globulin Albumin/Globulin Ratio Arterial Blood Potassium 04/01/17 04/01/17 04/01/17 06:58 06:58 11:41 WBC RBC Hgb Hct MCV MCH MCHC RDW Plt Count MPV Neut % (Auto) Lymph % (Auto) Alpine % (Auto) Eos % (Auto) Baso % (Auto) Neut # Lymph # Alpine # Eos # Baso # Neutrophils % (Manual) Band Neutrophils % Lymphocytes % (Manual) Monocytes % (Manual) Platelet Estimate Hypochromasia (manual) Poikilocytosis (manual Anisocytosis (manual) Tear Drop Cells Ovalocytes ESR 55 H Puncture Site pCO2 pO2 HCO3 ABG pH ABG Total CO2 ABG O2 Saturation ABG Base Excess ABG Hemoglobin ABG Carboxyhemoglobin POC ABG HHb (Measured) ABG Methemoglobin Daljit Test ABG Potassium A-a O2 Difference Respiratory Index Hgb O2 Saturation Sodium 134 Chloride 104 Glucose Lactate Vent Mode Mechanical Rate FiO2 Tidal Volume PEEP Potassium 4.1 Carbon Dioxide 28 Anion Gap 6 L BUN 29 H Creatinine 0.5 L Est GFR ( Amer) > 60 Est GFR (Non-Af Amer) > 60 POC Glucose (mg/dL) 123 H Random Glucose 123 H Calcium 8.0 L Phosphorus 3.1 Magnesium 1.6 Total Bilirubin 0.6 AST 35 ALT 34 Alkaline Phosphatase 117 Total Protein 4.1 L Albumin 1.9 L Globulin 2.2 Albumin/Globulin Ratio 0.8 L Arterial Blood Potassium Fingerstick Blood Sugar Results: 121 Critical Care Progress Note - Nutrition Nutrition: Nutrition Category Date Time Status Heart Healthy Diet [DIET] Diets 03/27/17 Lunch Active
--- NOTE | 2017-04-01 18:33 | CP.PCM.PN ---
Subjective - Date & Time of Evaluation Date of Evaluation: 04/01/17 Time of Evaluation: 15:45 - Subjective Subjective: Patient improved. Responding to to solumedrol 125mg q6 hours. Sed rate 55. Discussed case with Dr Pillai. Continue high dose steriods and transfuse patient. Hct now 20. Get daily sed rate as a monitor to response to high dose steroids. Objective - Vital Signs/Intake and Output Vital Signs (last 24 hours): Temp Pulse Resp BP Pulse Ox 97.4 F L 83 25 H 85/57 L 95 04/01/17 16:00 04/01/17 18:00 04/01/17 18:00 04/01/17 18:00 04/01/17 18:00 Intake and Output: 04/01/17 04/01/17 06:59 18:59 Intake Total 1345 1072.5 Output Total 399 290 Balance 946 782.5 - Medications Medications: Current Medications Acetaminophen (Tylenol 325mg Tab) 650 mg PO Q6 PRN PRN Reason: Pain, moderate (4-7) Albuterol/Ipratropium (Duoneb 3 Mg/0.5 Mg (3 Ml) Ud) 3 ml INH RQ6 [facility] Last Admin: 04/01/17 14:03 Dose: 3 ml Atovaquone (Mepron) 1,500 mg PO ACL [facility] Last Admin: 04/01/17 11:39 Dose: 1,500 mg Clopidogrel Bisulfate (Plavix) 75 mg PO DAILY [facility] Last Admin: 04/01/17 09:41 Dose: Not Given Emollient Ointment (Vaseline Oint) 5 gm TOP Q4 PRN PRN Reason: DRY SKIN Famotidine (Pepcid) 20 mg PO BID [facility] Last Admin: 04/01/17 17:19 Dose: 20 mg Gabapentin (Neurontin) 400 mg PO BID [facility] Last Admin: 04/01/17 17:19 Dose: 400 mg Hydroxychloroquine Sulfate (Plaquenil) 200 mg PO DAILY [facility] Last Admin: 04/01/17 09:24 Dose: 200 mg Doxycycline Hyclate 100 mg/ (Sodium Chloride) 100 mls @ 100 mls/hr IVPB Q12H [facility] Last Admin: 04/01/17 13:33 Dose: 100 mls/hr Fluconazole (Diflucan Iv 200 Mg/100 Ml Ns) 100 mls @ 100 mls/hr IVPB DAILY [facility] Last Admin: 04/01/17 09:25 Dose: 100 mls/hr Aztreonam 1 gm/ Sodium (Chloride) 100 mls @ 100 mls/hr IVPB Q8H [facility] Last Admin: 04/01/17 18:04 Dose: 100 mls/hr Metronidazole (Flagyl) 500 mg in 100 mls @ 100 mls/hr IVPB Q8 [facility] Last Admin: 04/01/17 13:34 Dose: 100 mls/hr Propofol (Diprivan) 1,000 mg in 100 mls @ 2.494 mls/hr IV .Q24H PRN; Protocol; 5 MCG/KG/MIN PRN Reason: TITRATE PER MD ORDER Last Admin: 04/01/17 14:33 Dose: 20 mcg/kg/min, 9.977 mls/hr Vancomycin HCl 1 gm/ Sodium (Chloride) 250 mls @ 133.333 mls/hr IVPB Q12H [facility] Methylprednisolone (Solu-Medrol) 125 mg IVP Q6H [facility] Last Admin: 04/01/17 17:19 Dose: 125 mg Ondansetron HCl (Zofran Inj) 4 mg IVP Q6H PRN PRN Reason: Nausea/Vomiting Last Admin: 03/20/17 15:01 Dose: 4 mg Oseltamivir Phosphate (Tamiflu Cap) 75 mg PO BID [facility] Stop: 04/04/17 09:22 Last Admin: 04/01/17 17:19 Dose: 75 mg Rosuvastatin Calcium (Crestor) 20 mg PO HS [facility] Last Admin: 03/31/17 21:07 Dose: 20 mg - Labs Labs: 04/01/17 06:58 04/01/17 06:58 PT 16.2 SECONDS (9.7-12.2) H 03/20/17 04:08 INR 1.4 03/20/17 04:08 APTT 38 SECONDS (21-34) H D 03/20/17 04:08 - Constitutional Appears: Chronically Ill - Head Exam Head Exam: NORMOCEPHALIC - Eye Exam Eye Exam: Normal appearance Pupil Exam: NORMAL ACCOMODATION - ENT Exam ENT Exam: Normal Exam - Neck Exam Neck Exam: Normal Inspection - Respiratory Exam Respiratory Exam: Decreased Breath Sounds - Cardiovascular Exam Cardiovascular Exam: REGULAR RHYTHM - GI/Abdominal Exam GI & Abdominal Exam: Normal Bowel Sounds - Rectal Exam Rectal Exam: Deferred - Exam Exam: NORMAL INSPECTION External exam: NORMAL EXTERNAL EXAM - Extremities Exam Extremities Exam: Normal Inspection - Back Exam Back Exam: NORMAL INSPECTION - Skin Skin Exam: Dry Assessment and Plan (1) Systemic lupus Status: Acute (2) Anemia Status: Acute (3) CHF (congestive heart failure) Status: Acute (4) Coagulopathy Status: Acute (5) Leg pain, bilateral Status: Acute (6) Elevated troponin Status: Acute
--- NOTE | 2017-04-01 20:25 | CP.PCM.PN ---
Subjective - Date & Time of Evaluation Date of Evaluation: 04/01/17 Time of Evaluation: 17:00 - Subjective Subjective: Vented Objective - Vital Signs/Intake and Output Vital Signs (last 24 hours): Temp Pulse Resp BP Pulse Ox 97.3 F L 78 25 H 82/54 L 95 04/01/17 19:29 04/01/17 19:29 04/01/17 19:29 04/01/17 19:29 04/01/17 18:00 Intake and Output: 04/01/17 04/02/17 18:59 06:59 Intake Total 1220.0 Output Total 320 Balance 900.0 - Medications Medications: Current Medications Acetaminophen (Tylenol 325mg Tab) 650 mg PO Q6 PRN PRN Reason: Pain, moderate (4-7) Albuterol/Ipratropium (Duoneb 3 Mg/0.5 Mg (3 Ml) Ud) 3 ml INH RQ6 [facility] Last Admin: 04/01/17 20:14 Dose: 3 ml Atovaquone (Mepron) 1,500 mg PO ACL [facility] Last Admin: 04/01/17 11:39 Dose: 1,500 mg Clopidogrel Bisulfate (Plavix) 75 mg PO DAILY [facility] Last Admin: 04/01/17 09:41 Dose: Not Given Emollient Ointment (Vaseline Oint) 5 gm TOP Q4 PRN PRN Reason: DRY SKIN Famotidine (Pepcid) 20 mg PO BID [facility] Last Admin: 04/01/17 17:19 Dose: 20 mg Gabapentin (Neurontin) 400 mg PO BID [facility] Last Admin: 04/01/17 17:19 Dose: 400 mg Hydroxychloroquine Sulfate (Plaquenil) 200 mg PO DAILY [facility] Last Admin: 04/01/17 09:24 Dose: 200 mg Doxycycline Hyclate 100 mg/ (Sodium Chloride) 100 mls @ 100 mls/hr IVPB Q12H [facility] Last Admin: 04/01/17 13:33 Dose: 100 mls/hr Fluconazole (Diflucan Iv 200 Mg/100 Ml Ns) 100 mls @ 100 mls/hr IVPB DAILY [facility] Last Admin: 04/01/17 09:25 Dose: 100 mls/hr Aztreonam 1 gm/ Sodium (Chloride) 100 mls @ 100 mls/hr IVPB Q8H [facility] Last Admin: 04/01/17 18:04 Dose: 100 mls/hr Metronidazole (Flagyl) 500 mg in 100 mls @ 100 mls/hr IVPB Q8 IM[facility] Last Admin: 04/01/17 13:34 Dose: 100 mls/hr Propofol (Diprivan) 1,000 mg in 100 mls @ 2.494 mls/hr IV .Q24H PRN; Protocol; 5 MCG/KG/MIN PRN Reason: TITRATE PER MD ORDER Last Admin: 04/01/17 14:33 Dose: 20 mcg/kg/min, 9.977 mls/hr Vancomycin HCl 1 gm/ Sodium (Chloride) 250 mls @ 133.333 mls/hr IVPB Q12H [facility]AN Methylprednisolone (Solu-Medrol) 125 mg IVP Q6H IMAN Last Admin: 04/01/17 17:19 Dose: 125 mg Ondansetron HCl (Zofran Inj) 4 mg IVP Q6H PRN PRN Reason: Nausea/Vomiting Last Admin: 03/20/17 15:01 Dose: 4 mg Oseltamivir Phosphate (Tamiflu Cap) 75 mg PO BID IMAN Stop: 04/04/17 09:22 Last Admin: 04/01/17 17:19 Dose: 75 mg Rosuvastatin Calcium (Crestor) 20 mg PO HS IMAN Last Admin: 03/31/17 21:07 Dose: 20 mg - Labs Labs: 04/01/17 06:58 04/01/17 06:58 PT 16.2 SECONDS (9.7-12.2) H 03/20/17 04:08 INR 1.4 03/20/17 04:08 APTT 38 SECONDS (21-34) H D 03/20/17 04:08 - Head Exam Head Exam: ATRAUMATIC - Eye Exam Eye Exam: Normal appearance - ENT Exam ENT Exam: Mucous Membranes Dry - Respiratory Exam Respiratory Exam: Decreased Breath Sounds - Cardiovascular Exam Cardiovascular Exam: +S1, +S2 - GI/Abdominal Exam GI & Abdominal Exam: Normal Bowel Sounds Assessment and Plan (1) Thrombocytopenia Assessment & Plan: suspect immune mediated started on higher dose steroids bone marrow evaluation when more clinically stable Status: Acute (2) Anemia Assessment & Plan: for 2u PRBC anemia of chronic disease no current evidence of hemolysis Status: Acute (3) Coagulopathy Assessment & Plan: nutritional Status: Acute
[2017-04-02] MEDS: Aztreonam 1 GM in Sodium Chloride 0.9% 100 ML IVPB SCH ×3 (02:00→17:30)
[2017-04-02] MEDS: Albuterol-Ipratrop 3 mg / 0.5 (3 ml) UD INH SCH ×4 (03:05→20:05)
[2017-04-02] MEDS: Propofol 10 mg/ml 1,000 MG/100 ML VIAL IV PRN ×3 (03:41→18:00)
[2017-04-02] MEDS: metroNIDAZOLE IV 500 mg/100 ml 500 MG/100 ML BAG IVPB SCH ×3 (05:00→22:00)
[2017-04-02 07:09] LABS: ABG ALLEN TEST POS; ARTERIAL BLOOD GAS HCO3 23.8 mmol/L (21-28); ARTERIAL BLOOD GAS HEMOGLOBIN 9.4 g/dL (11.7-17.4); ARTERIAL BLOOD GAS O2 SAT 99.8 % (95-98); ARTERIAL BLOOD GAS PCO2 26 mm/Hg (35-45); ARTERIAL BLOOD GAS PH 7.51 (7.35-7.45); ARTERIAL BLOOD GAS PO2 194 mm/Hg (80-100); ARTERIAL BLOOD GAS TCO2 21.5 mmol/L (22-28)
[2017-04-02 07:16] LABS: ALB/GLOB RATIO 0.8 (1.0-2.1); ALBUMIN 2.1 g/dL (3.5-5.0); ALT/SGPT 34 U/L (9-52); AST/SGOT 45 U/L (14-36); BLOOD UREA NITROGEN 34 mg/dL (7-17); CALCIUM 8.2 mg/dl (8.6-10.4); GFR AFRICAN-AMERICAN > 60; GFR NON-AFRICAN AMERICAN > 60; MAGNESIUM 1.6 mg/dL (1.6-2.3)
[2017-04-02 08:33] LABS: BASO % 0.6 % (0.0-2.0); MONO # 0.5 K/uL (0.0-0.8); RBC 3.42 Mil/uL (3.80-5.20)
[2017-04-02 08:37] LABS: MEAN CELL VOLUME 86.9 fL (81.0-99.0); MEAN CORPUSCULAR HEMOGLOBIN 30.1 pg (27.0-31.0); MEAN CORPUSCULAR HGB CONC 34.6 g/dL (33.0-37.0); MEAN PLATELET VOLUME 10.6 fL (7.2-11.7); RED CELL DISTRIBUTION WIDTH 17.8 % (11.5-14.5)
[2017-04-02 08:38] LABS: PLATELET COUNT 25 K/uL (130-400)
[2017-04-02 08:47] LABS: HEMOGLOBIN 10.3 g/dL (11.0-16.0); LYMPH # 0.2 K/uL (1.0-4.3); LYMPH % 2.6 % (20.0-40.0); MONO % 6.9 % (0.0-10.0); NEUT % 89.9 % (50.0-75.0); NRBC % 0.4 % (0.0-2.0); WHITE BLOOD COUNT 7.8 K/uL (4.8-10.8)
[2017-04-02 09:06] LABS: LYMPHOCYTE 4 % (20-40); MONOCYTE 8 % (0-10); NEUTROPHIL 88 % (50-75); TOTAL CELLS COUNTED 100
[2017-04-02 09:07] LABS: ANISOCYTOSIS SLIGHT; OVALOCYTES SLIGHT; PLATELET ESTIMATE MARKEDLY DECREASED (NORMAL); POIKILOCYTOSIS SLIGHT; POLYCHROMIC SLIGHT; SCHISTOCYTES SLIGHT
[2017-04-02 09:08] LABS: SPHEROCYTES SLIGHT; TEARDROP CELLS SLIGHT
[2017-04-02] MEDS: Petrolatum Oint Foilpak (5 gm) TOP PRN (09:25)
[2017-04-02] MEDS: Fluconazole IV 200mg/100 ml NS 100 ML IVPB SCH (09:43)
[2017-04-02] MEDS: Atovaquone 750 mg/5 ml Susp UD PO SCH (10:51)
--- NOTE | 2017-04-02 13:56 | CP.PCM.PN ---
Subjective - Date & Time of Evaluation Date of Evaluation: 04/02/17 Time of Evaluation: 09:00 - Subjective Subjective: vented back on IV antibiotics seen by Dr Daley and Dr Puckett Objective - Vital Signs/Intake and Output Vital Signs (last 24 hours): Temp Pulse Resp BP Pulse Ox 97.6 F 77 26 H 121/89 100 04/02/17 12:00 04/02/17 12:01 04/02/17 12:01 04/02/17 12:01 04/02/17 12:01 Intake and Output: 04/02/17 04/02/17 06:59 18:59 Intake Total 2017.5 1045.0 Output Total 418 238 Balance 1599.5 807.0 - Medications Medications: Current Medications Acetaminophen (Tylenol 325mg Tab) 650 mg PO Q6 PRN PRN Reason: Pain, moderate (4-7) Albuterol/Ipratropium (Duoneb 3 Mg/0.5 Mg (3 Ml) Ud) 3 ml INH RQ6 [facility] Last Admin: 04/02/17 13:23 Dose: 3 ml Atovaquone (Mepron) 1,500 mg PO ACL [facility] Last Admin: 04/02/17 10:51 Dose: 1,500 mg Clopidogrel Bisulfate (Plavix) 75 mg PO DAILY [facility] Last Admin: 04/02/17 09:24 Dose: 75 mg Emollient Ointment (Vaseline Oint) 5 gm TOP Q4 PRN PRN Reason: DRY SKIN Last Admin: 04/02/17 09:25 Dose: 5 gm Famotidine (Pepcid) 20 mg PO BID [facility] Last Admin: 04/02/17 09:24 Dose: 20 mg Gabapentin (Neurontin) 400 mg PO BID [facility] Last Admin: 04/02/17 09:24 Dose: 400 mg Hydroxychloroquine Sulfate (Plaquenil) 200 mg PO DAILY [facility] Last Admin: 04/02/17 09:24 Dose: 200 mg Doxycycline Hyclate 100 mg/ (Sodium Chloride) 100 mls @ 100 mls/hr IVPB Q12H [facility] Last Admin: 04/02/17 01:00 Dose: 100 mls/hr Fluconazole (Diflucan Iv 200 Mg/100 Ml Ns) 100 mls @ 100 mls/hr IVPB DAILY [facility] Last Admin: 04/02/17 09:43 Dose: 100 mls/hr Aztreonam 1 gm/ Sodium (Chloride) 100 mls @ 100 mls/hr IVPB Q8H [facility] Last Admin: 04/02/17 09:44 Dose: 100 mls/hr Metronidazole (Flagyl) 500 mg in 100 mls @ 100 mls/hr IVPB Q8 [facility] Last Admin: 04/02/17 05:00 Dose: 100 mls/hr Propofol (Diprivan) 1,000 mg in 100 mls @ 2.494 mls/hr IV .Q24H PRN; Protocol; 5 MCG/KG/MIN PRN Reason: TITRATE PER MD ORDER Last Admin: 04/02/17 10:03 Dose: 25 mcg/kg/min, 12.471 mls/hr Vancomycin HCl 1 gm/ Sodium (Chloride) 250 mls @ 133.333 mls/hr IVPB Q12H [facility] Last Admin: 04/02/17 08:31 Dose: 133.333 mls/hr Methylprednisolone (Solu-Medrol) 250 mg IVP Q6H [facility] Stop: 04/03/17 17:01 Ondansetron HCl (Zofran Inj) 4 mg IVP Q6H PRN PRN Reason: Nausea/Vomiting Last Admin: 03/20/17 15:01 Dose: 4 mg Oseltamivir Phosphate (Tamiflu Cap) 75 mg PO BID [facility] Stop: 04/04/17 09:22 Last Admin: 04/02/17 09:25 Dose: 75 mg Rosuvastatin Calcium (Crestor) 20 mg PO HS [facility] Last Admin: 04/01/17 21:26 Dose: 20 mg - Labs Labs: 04/02/17 08:15 04/02/17 06:51 PT 16.2 SECONDS (9.7-12.2) H 03/20/17 04:08 INR 1.4 03/20/17 04:08 APTT 38 SECONDS (21-34) H D 03/20/17 04:08 - Constitutional Appears: Non-toxic, Chronically Ill - Head Exam Head Exam: NORMOCEPHALIC - Eye Exam Eye Exam: PERRL - ENT Exam ENT Exam: Mucous Membranes Dry - Respiratory Exam Respiratory Exam: Decreased Breath Sounds, Rhonchi - Cardiovascular Exam Cardiovascular Exam: REGULAR RHYTHM - GI/Abdominal Exam GI & Abdominal Exam: Distended, Soft - Rectal Exam Rectal Exam: Deferred - Exam Exam: NORMAL INSPECTION Assessment and Plan (1) Anemia Status: Acute (2) CHF (congestive heart failure) Status: Acute (3) Coagulopathy Status: Acute (4) Fever Status: Acute (5) Hypoglycemia Status: Acute (6) Leg pain, bilateral Status: Acute (7) Sepsis Status: Acute (8) Thrombocytopenia Status: Acute
--- NOTE | 2017-04-02 16:22 | CP.CCUPN ---
CCU Subjective - Physician Review Events Since Last Encounter (Free Text): 04/02/17 16:21 patient was intubated yesterday. had oxygen requirement improved markedly. Patient is currently on FiO2 50%. Thick secretions noted, minimal blood in the secretions noted. Patient is sedated. Tolerating the feeding. Sacral decubiti noted. Patient's vital signs noted. No fever Chest diffuse rhonchi. regular heart sound. Urine output is improving Edema noted Currently patient is on high-dose corticosteroid. X-ray of the chest is showing improvement in the infiltrative changes, but still having bilateral diffuse infiltrate. i spoke to the oncologist, most likely problems related to the lupus. Possibly patient has autoimmune disease with pancytopenia, and associated with interstitial lung disease. Bronchoscopy may not yield much, will get a tracheal aspirate for bacterial culture. On antibiotic. Continue the steroid. Rheumatology evaluation and follow-up needed. I will follow the patient I spoke to the PMD. High-dose corticosteroid. Patient may need a bronchoscopy, will get a bronchial culture. Patient may need a lung biopsy CCU Objective - Vital Signs / Intake & Output Vital Signs (Last 4 hours): Vital Signs Temp Pulse Resp BP Pulse Ox 04/02/17 16:01 66 25 H 112/75 99 04/02/17 16:00 97.4 F L 66 25 H 98 04/02/17 15:01 72 25 H 120/81 98 04/02/17 15:00 74 21 97 04/02/17 14:01 70 25 H 105/71 99 04/02/17 14:00 69 25 H 98 04/02/17 13:01 77 25 H 115/73 98 04/02/17 13:00 77 26 H 100 Intake and Output (Last 8hrs): Intake & Output 04/02/17 04/02/17 04/02/17 06:59 14:59 22:59 Intake Total 1115.0 1250.0 205.0 Output Total 304 288 70 Balance 811.0 962.0 135.0 Weight 190 lb 2 oz Intake: IV 100 100 Intake, IV Amount 400.0 660.0 125.0 Left Antecubital Mid-Line 100.0 100.0 25.0 #2 Left Antecubital Mid-line 300 550 100 Right Hand 10 Tube Feeding 290 320 80 Blood Product 325 Red Blood Cells Cpd As1 325 Lr Unit [id number] Other 170 Output: Urine 304 288 70 Urethral (Lewis) 304 288 70 Other: # Bowel Movements 1 - Physical Exam Head: Positive for: Atraumatic, Normocephalic Pupils: Positive for: PERRL Extroacular Muscles: Positive for: EOMI Conjunctiva: Positive for: Normal Mouth: Positive for: Moist Mucous Membranes Neck: Positive for: Normal Range of Motion Respiratory/Chest: Positive for: Accessory Muscle Use, Wheezes, Rales, Other ( BiPAP). Negative for: Rhonchi Cardiovascular: Positive for: Normal S1, S2, Tachycardic Abdomen: Positive for: Normal Bowel Sounds. Negative for: Tenderness, Distention, Peritoneal Signs Upper Extremity: Positive for: Normal Inspection Lower Extremity: Positive for: Edema. Negative for: Tenderness Neurological: Positive for: GCS=15, Speech Normal Skin: Positive for: Warm, Dry. Negative for: Rashes Psychiatric: Positive for: Alert, Oriented x 3, Normal Insight, Normal Concentration - Medications Active Medications: Active Medications Generic Name Dose Route Start Last Admin Trade Name Freq PRN Reason Stop Dose Admin Acetaminophen 650 mg 03/31/17 12:52 Tylenol 325mg Tab PO Q6 PRN Pain, moderate (4-7) Albuterol/Ipratropium 3 ml 04/01/17 14:00 04/02/17 13:23 Duoneb 3 Mg/0.5 Mg (3 Ml) Ud INH 3 ml RQ6 [facility] Administration Atovaquone 1,500 mg 03/30/17 11:30 04/02/17 10:51 Mepron PO 1,500 mg ACL [facility] Administration Clopidogrel Bisulfate 75 mg 03/23/17 10:00 04/02/17 09:24 Plavix PO 75 mg DAILY IM[facility] Administration Emollient Ointment 5 gm 03/31/17 12:18 04/02/17 09:25 Vaseline Oint TOP 5 gm Q4 PRN Administration DRY SKIN Famotidine 20 mg 03/23/17 10:00 04/02/17 09:24 Pepcid PO 20 mg BID IMAN Administration Gabapentin 400 mg 03/23/17 10:00 04/02/17 09:24 Neurontin PO 400 mg BID IMAN Administration Hydroxychloroquine Sulfate 200 mg 03/28/17 10:00 04/02/17 09:24 Plaquenil PO 200 mg DAILY [facility] Administration Doxycycline Hyclate 100 mg/ 100 mls @ 100 mls/hr 03/29/17 14:00 04/02/17 13: 55 Sodium Chloride IVPB 100 mls/hr Q12H [facility] Administration Fluconazole 100 mls @ 100 mls/hr 03/30/17 10:00 04/02/17 09:43 Diflucan Iv 200 Mg/100 Ml Ns IVPB 100 mls/hr DAILY [facility] Administration Aztreonam 1 gm/ Sodium 100 mls @ 100 mls/hr 03/30/17 10:30 04/02/17 09:44 Chloride IVPB 100 mls/hr Q8H [facility] Administration Metronidazole 500 mg in 100 mls @ 100 mls/hr 03/30/17 14:00 04/02/17 13:55 Flagyl IVPB 100 mls/hr Q8 [facility] Administration Propofol 1,000 mg in 100 mls @ 2.494 mls/hr 03/31/17 15:15 04/02/17 10:03 Diprivan IV 25 mcg/kg/min .Q24H PRN 12.471 mls/hr TITRATE PER MD ORDER Administration Protocol 5 MCG/KG/MIN Vancomycin HCl 1 gm/ Sodium 250 mls @ 133.333 mls/hr 04/01/17 21:30 04/02/17 08:31 Chloride IVPB 133.333 mls/hr Q12H [facility] Administration Methylprednisolone 250 mg 04/02/17 13:48 04/02/17 14:46 Solu-Medrol IVP 04/03/17 17:01 250 mg Q6H [facility] Administration Ondansetron HCl 4 mg 03/20/17 15:00 03/20/17 15:01 Zofran Inj IVP 4 mg Q6H PRN Administration Nausea/Vomiting Oseltamivir Phosphate 75 mg 03/30/17 10:00 04/02/17 09:25 Tamiflu Cap PO 04/04/17 09:22 75 mg BID [facility] Administration Rosuvastatin Calcium 20 mg 03/23/17 22:00 04/01/17 21:26 Crestor PO 20 mg HS IM[facility] Administration - Patient Studies Lab Studies: Lab Studies 04/02/17 04/02/17 04/02/17 Range/Units 14:41 11:21 08:15 WBC 7.8 D (4.8-10.8) K/uL RBC 3.42 L (3.80-5.20) Mil/uL Hgb 10.3 L D (11.0-16.0) g/dL Hct 29.7 L (34.0-47.0) % MCV 86.9 (81.0-99.0) fL MCH 30.1 (27.0-31.0) pg MCHC 34.6 (33.0-37.0) g/dL RDW 17.8 H (11.5-14.5) % Plt Count 25 L* (130-400) K/uL MPV 10.6 (7.2-11.7) fL Neut % (Auto) 89.9 H (50.0-75.0) % Lymph % (Auto) 2.6 L (20.0-40.0) % Hemphill % (Auto) 6.9 (0.0-10.0) % Eos % (Auto) 0.0 (0.0-4.0) % Baso % (Auto) 0.6 (0.0-2.0) % Neut # 7.0 (1.8-7.0) K/uL Lymph # 0.2 L (1.0-4.3) K/uL Hemphill # 0.5 (0.0-0.8) K/uL Eos # 0.0 (0.0-0.7) K/uL Baso # 0.0 (0.0-0.2) K/uL Neutrophils % (Manual) 88 H (50-75) % Lymphocytes % (Manual) 4 L (20-40) % Monocytes % (Manual) 8 (0-10) % Platelet Estimate Markedly decreased L (NORMAL) Polychromasia Slight Poikilocytosis (manual Slight Anisocytosis (manual) Slight Spherocytes Slight Tear Drop Cells Slight Ovalocytes Slight Schistocytes Slight Puncture Site pCO2 (35-45) mm/Hg pO2 (80-100) mm/Hg HCO3 (21-28) mmol/L ABG pH (7.35-7.45) ABG Total CO2 (22-28) mmol/L ABG O2 Saturation (95-98) % ABG Base Excess (-2.0-3.0) mmol/L ABG Hemoglobin (11.7-17.4) g/dL ABG Carboxyhemoglobin (0.5-1.5) % POC ABG HHb (Measured) (0.0-5.0) % ABG Methemoglobin (0.0-3.0) % Daljit Test A-a O2 Difference mm/Hg Respiratory Index Hgb O2 Saturation (95.0-98.0) % Vent Mode Mechanical Rate FiO2 % Tidal Volume PEEP Sodium (132-148) mmol/L Potassium (3.6-5.2) mmol/L Chloride (98-107) mmol/L Carbon Dioxide (22-30) mmol/L Anion Gap (10-20) BUN (7-17) mg/dL Creatinine (0.7-1.2) mg/dL Est GFR ( Amer) Est GFR (Non-Af Amer) POC Glucose (mg/dL) 73 (65-110) mg/dL Random Glucose (65-105) mg/dL Calcium (8.6-10.4) mg/dl Phosphorus (2.5-4.5) mg/dL Magnesium (1.6-2.3) mg/dL Total Bilirubin (0.2-1.3) mg/dL AST (14-36) U/L ALT (9-52) U/L Alkaline Phosphatase (38-126) U/L Total Protein (6.3-8.3) g/dL Albumin (3.5-5.0) g/dL Globulin (2.2-3.9) gm/dL Albumin/Globulin Ratio (1.0-2.1) Vancomycin Trough 18.0 H (5.0-10.0) ug/mL Blood Type Antibody Screen 04/02/17 04/02/17 04/02/17 Range/Units 06:51 05:38 05:21 WBC (4.8-10.8) K/uL RBC (3.80-5.20) Mil/uL Hgb (11.0-16.0) g/dL Hct (34.0-47.0) % MCV (81.0-99.0) fL MCH (27.0-31.0) pg MCHC (33.0-37.0) g/dL RDW (11.5-14.5) % Plt Count (130-400) K/uL MPV (7.2-11.7) fL Neut % (Auto) (50.0-75.0) % Lymph % (Auto) (20.0-40.0) % Hemphill % (Auto) (0.0-10.0) % Eos % (Auto) (0.0-4.0) % Baso % (Auto) (0.0-2.0) % Neut # (1.8-7.0) K/uL Lymph # (1.0-4.3) K/uL Hemphill # (0.0-0.8) K/uL Eos # (0.0-0.7) K/uL Baso # (0.0-0.2) K/uL Neutrophils % (Manual) (50-75) % Lymphocytes % (Manual) (20-40) % Monocytes % (Manual) (0-10) % Platelet Estimate (NORMAL) Polychromasia Poikilocytosis (manual Anisocytosis (manual) Spherocytes Tear Drop Cells Ovalocytes Schistocytes Puncture Site Rr pCO2 26 L (35-45) mm/Hg pO2 194 H (80-100) mm/Hg HCO3 23.8 (21-28) mmol/L ABG pH 7.51 H (7.35-7.45) ABG Total CO2 21.5 L (22-28) mmol/L ABG O2 Saturation 99.8 H (95-98) % ABG Base Excess -1.5 (-2.0-3.0) mmol/L ABG Hemoglobin 9.4 L (11.7-17.4) g/dL ABG Carboxyhemoglobin 2.7 H (0.5-1.5) % POC ABG HHb (Measured) 0.2 (0.0-5.0) % ABG Methemoglobin 1.1 (0.0-3.0) % Daljit Test Pos A-a O2 Difference 130.0 mm/Hg Respiratory Index 0.7 Hgb O2 Saturation 96.0 (95.0-98.0) % Vent Mode Prvc Mechanical Rate 25 FiO2 50.0 % Tidal Volume 450 PEEP 8 Sodium 135 (132-148) mmol/L Potassium 3.8 (3.6-5.2) mmol/L Chloride 106 (98-107) mmol/L Carbon Dioxide 24 (22-30) mmol/L Anion Gap 9 L (10-20) BUN 34 H (7-17) mg/dL Creatinine 0.5 L (0.7-1.2) mg/dL Est GFR ( Amer) > 60 Est GFR (Non-Af Amer) > 60 POC Glucose (mg/dL) 152 H (65-110) mg/dL Random Glucose 138 H (65-105) mg/dL Calcium 8.2 L (8.6-10.4) mg/dl Phosphorus 3.2 (2.5-4.5) mg/dL Magnesium 1.6 (1.6-2.3) mg/dL Total Bilirubin 1.0 (0.2-1.3) mg/dL AST 45 H D (14-36) U/L ALT 34 (9-52) U/L Alkaline Phosphatase 170 H D (38-126) U/L Total Protein 4.7 L (6.3-8.3) g/dL Albumin 2.1 L (3.5-5.0) g/dL Globulin 2.6 (2.2-3.9) gm/dL Albumin/Globulin Ratio 0.8 L (1.0-2.1) Vancomycin Trough (5.0-10.0) ug/mL Blood Type Antibody Screen 04/01/17 04/01/17 04/01/17 Range/Units 23:50 17:49 17:00 WBC (4.8-10.8) K/uL RBC (3.80-5.20) Mil/uL Hgb (11.0-16.0) g/dL Hct (34.0-47.0) % MCV (81.0-99.0) fL MCH (27.0-31.0) pg MCHC (33.0-37.0) g/dL RDW (11.5-14.5) % Plt Count (130-400) K/uL MPV (7.2-11.7) fL Neut % (Auto) (50.0-75.0) % Lymph % (Auto) (20.0-40.0) % Hemphill % (Auto) (0.0-10.0) % Eos % (Auto) (0.0-4.0) % Baso % (Auto) (0.0-2.0) % Neut # (1.8-7.0) K/uL Lymph # (1.0-4.3) K/uL Hemphill # (0.0-0.8) K/uL Eos # (0.0-0.7) K/uL Baso # (0.0-0.2) K/uL Neutrophils % (Manual) (50-75) % Lymphocytes % (Manual) (20-40) % Monocytes % (Manual) (0-10) % Platelet Estimate (NORMAL) Polychromasia Poikilocytosis (manual Anisocytosis (manual) Spherocytes Tear Drop Cells Ovalocytes Schistocytes Puncture Site pCO2 (35-45) mm/Hg pO2 (80-100) mm/Hg HCO3 (21-28) mmol/L ABG pH (7.35-7.45) ABG Total CO2 (22-28) mmol/L ABG O2 Saturation (95-98) % ABG Base Excess (-2.0-3.0) mmol/L ABG Hemoglobin (11.7-17.4) g/dL ABG Carboxyhemoglobin (0.5-1.5) % POC ABG HHb (Measured) (0.0-5.0) % ABG Methemoglobin (0.0-3.0) % Daljit Test A-a O2 Difference mm/Hg Respiratory Index Hgb O2 Saturation (95.0-98.0) % Vent Mode Mechanical Rate FiO2 % Tidal Volume PEEP Sodium (132-148) mmol/L Potassium (3.6-5.2) mmol/L Chloride (98-107) mmol/L Carbon Dioxide (22-30) mmol/L Anion Gap (10-20) BUN (7-17) mg/dL Creatinine (0.7-1.2) mg/dL Est GFR ( Amer) Est GFR (Non-Af Amer) POC Glucose (mg/dL) 179 H 144 H (65-110) mg/dL Random Glucose (65-105) mg/dL Calcium (8.6-10.4) mg/dl Phosphorus (2.5-4.5) mg/dL Magnesium (1.6-2.3) mg/dL Total Bilirubin (0.2-1.3) mg/dL AST (14-36) U/L ALT (9-52) U/L Alkaline Phosphatase (38-126) U/L Total Protein (6.3-8.3) g/dL Albumin (3.5-5.0) g/dL Globulin (2.2-3.9) gm/dL Albumin/Globulin Ratio (1.0-2.1) Vancomycin Trough (5.0-10.0) ug/mL Blood Type O POSITIVE Antibody Screen Negative Laboratory Results - last 24 hr 04/01/17 04/01/17 04/01/17 17:00 17:49 23:50 WBC RBC Hgb Hct MCV MCH MCHC RDW Plt Count MPV Neut % (Auto) Lymph % (Auto) Hemphill % (Auto) Eos % (Auto) Baso % (Auto) Neut # Lymph # Hemphill # Eos # Baso # Neutrophils % (Manual) Lymphocytes % (Manual) Monocytes % (Manual) Platelet Estimate Polychromasia Poikilocytosis (manual Anisocytosis (manual) Spherocytes Tear Drop Cells Ovalocytes Schistocytes Puncture Site pCO2 pO2 HCO3 ABG pH ABG Total CO2 ABG O2 Saturation ABG Base Excess ABG Hemoglobin ABG Carboxyhemoglobin POC ABG HHb (Measured) ABG Methemoglobin Daljit Test A-a O2 Difference Respiratory Index Hgb O2 Saturation Vent Mode Mechanical Rate FiO2 Tidal Volume PEEP Sodium Potassium Chloride Carbon Dioxide Anion Gap BUN Creatinine Est GFR ( Amer) Est GFR (Non-Af Amer) POC Glucose (mg/dL) 144 H 179 H Random Glucose Calcium Phosphorus Magnesium Total Bilirubin AST ALT Alkaline Phosphatase Total Protein Albumin Globulin Albumin/Globulin Ratio Vancomycin Trough Blood Type O POSITIVE Antibody Screen Negative 04/02/17 04/02/17 04/02/17 05:21 05:38 06:51 WBC RBC Hgb Hct MCV MCH MCHC RDW Plt Count MPV Neut % (Auto) Lymph % (Auto) Hemphill % (Auto) Eos % (Auto) Baso % (Auto) Neut # Lymph # Hemphill # Eos # Baso # Neutrophils % (Manual) Lymphocytes % (Manual) Monocytes % (Manual) Platelet Estimate Polychromasia Poikilocytosis (manual Anisocytosis (manual) Spherocytes Tear Drop Cells Ovalocytes Schistocytes Puncture Site Rr pCO2 26 L pO2 194 H HCO3 23.8 ABG pH 7.51 H ABG Total CO2 21.5 L ABG O2 Saturation 99.8 H ABG Base Excess -1.5 ABG Hemoglobin 9.4 L ABG Carboxyhemoglobin 2.7 H POC ABG HHb (Measured) 0.2 ABG Methemoglobin 1.1 Daljit Test Pos A-a O2 Difference 130.0 Respiratory Index 0.7 Hgb O2 Saturation 96.0 Vent Mode Prvc Mechanical Rate 25 FiO2 50.0 Tidal Volume 450 PEEP 8 Sodium 135 Potassium 3.8 Chloride 106 Carbon Dioxide 24 Anion Gap 9 L BUN 34 H Creatinine 0.5 L Est GFR ( Amer) > 60 Est GFR (Non-Af Amer) > 60 POC Glucose (mg/dL) 152 H Random Glucose 138 H Calcium 8.2 L Phosphorus 3.2 Magnesium 1.6 Total Bilirubin 1.0 AST 45 H D ALT 34 Alkaline Phosphatase 170 H D Total Protein 4.7 L Albumin 2.1 L Globulin 2.6 Albumin/Globulin Ratio 0.8 L Vancomycin Trough Blood Type Antibody Screen 04/02/17 04/02/17 04/02/17 08:15 11:21 14:41 WBC 7.8 D RBC 3.42 L Hgb 10.3 L D Hct 29.7 L MCV 86.9 MCH 30.1 MCHC 34.6 RDW 17.8 H Plt Count 25 L* MPV 10.6 Neut % (Auto) 89.9 H Lymph % (Auto) 2.6 L Hemphill % (Auto) 6.9 Eos % (Auto) 0.0 Baso % (Auto) 0.6 Neut # 7.0 Lymph # 0.2 L Hemphill # 0.5 Eos # 0.0 Baso # 0.0 Neutrophils % (Manual) 88 H Lymphocytes % (Manual) 4 L Monocytes % (Manual) 8 Platelet Estimate Markedly decreased L Polychromasia Slight Poikilocytosis (manual Slight Anisocytosis (manual) Slight Spherocytes Slight Tear Drop Cells Slight Ovalocytes Slight Schistocytes Slight Puncture Site pCO2 pO2 HCO3 ABG pH ABG Total CO2 ABG O2 Saturation ABG Base Excess ABG Hemoglobin ABG Carboxyhemoglobin POC ABG HHb (Measured) ABG Methemoglobin Daljit Test A-a O2 Difference Respiratory Index Hgb O2 Saturation Vent Mode Mechanical Rate FiO2 Tidal Volume PEEP Sodium Potassium Chloride Carbon Dioxide Anion Gap BUN Creatinine Est GFR ( Amer) Est GFR (Non-Af Amer) POC Glucose (mg/dL) 73 Random Glucose Calcium Phosphorus Magnesium Total Bilirubin AST ALT Alkaline Phosphatase Total Protein Albumin Globulin Albumin/Globulin Ratio Vancomycin Trough 18.0 H Blood Type Antibody Screen Fingerstick Blood Sugar Results: 179
[2017-04-03] MEDS: Aztreonam 1 GM in Sodium Chloride 0.9% 100 ML IVPB SCH ×3 (02:00→17:29)
[2017-04-03] MEDS: Albuterol-Ipratrop 3 mg / 0.5 (3 ml) UD INH SCH ×4 (02:44→20:48)
[2017-04-03] MEDS: Propofol 10 mg/ml 1,000 MG/100 ML VIAL IV PRN ×4 (02:57→23:22)
[2017-04-03] MEDS: metroNIDAZOLE IV 500 mg/100 ml 500 MG/100 ML BAG IVPB SCH ×2 (05:00→13:09)
[2017-04-03 06:13] LABS: ABG ALLEN TEST POS; ARTERIAL BLOOD GAS HCO3 25.9 mmol/L (21-28); ARTERIAL BLOOD GAS HEMOGLOBIN 10.3 g/dL (11.7-17.4); ARTERIAL BLOOD GAS O2 SAT 99.5 % (95-98); ARTERIAL BLOOD GAS PCO2 34 mm/Hg (35-45); ARTERIAL BLOOD GAS PH 7.47 (7.35-7.45); ARTERIAL BLOOD GAS PO2 158 mm/Hg (80-100); ARTERIAL BLOOD GAS TCO2 25.7 mmol/L (22-28)
[2017-04-03 06:30] LABS: BASO % 0.3 % (0.0-2.0); EOS % 0.1 % (0.0-4.0); HEMOGLOBIN 10.5 g/dL (11.0-16.0); LYMPH # 0.2 K/uL (1.0-4.3); LYMPH % 2.8 % (20.0-40.0); MEAN CELL VOLUME 87.9 fL (81.0-99.0); MEAN CORPUSCULAR HEMOGLOBIN 29.8 pg (27.0-31.0); MEAN CORPUSCULAR HGB CONC 33.9 g/dL (33.0-37.0); MEAN PLATELET VOLUME 10.1 fL (7.2-11.7); MONO # 0.6 K/uL (0.0-0.8); MONO % 7.7 % (0.0-10.0); NEUT # 6.6 K/uL (1.8-7.0); NEUT % 89.1 % (50.0-75.0); NRBC % 0.2 % (0.0-2.0); RBC 3.52 Mil/uL (3.80-5.20); RED CELL DISTRIBUTION WIDTH 18.2 % (11.5-14.5); WHITE BLOOD COUNT 7.4 K/uL (4.8-10.8)
[2017-04-03 06:35] LABS: PLATELET COUNT 17 K/uL (130-400)
[2017-04-03 06:46] LABS: ALB/GLOB RATIO 0.8 (1.0-2.1); ALBUMIN 1.9 g/dL (3.5-5.0); ALT/SGPT 51 U/L (9-52); AST/SGOT 50 U/L (14-36); BLOOD UREA NITROGEN 34 mg/dL (7-17); CALCIUM 8.1 mg/dl (8.6-10.4); GFR AFRICAN-AMERICAN > 60; GFR NON-AFRICAN AMERICAN > 60; MAGNESIUM 1.5 mg/dL (1.6-2.3)
[2017-04-03] MEDS ORDERED: Potassium Chloride 20 mEq/15 ml LIQ UD NG ONE (07:45)
[2017-04-03] MEDS ORDERED: Magnesium Sulfate 1 gm in D5W 1 GM/100 ML BAG IVPB ONE (08:00)
--- NOTE | 2017-04-03 08:32 | CP.PCM.PN ---
Subjective - Date & Time of Evaluation Date of Evaluation: 04/03/17 Time of Evaluation: 08:30 - Subjective Subjective: Hospitalist Covering Dr. Pillai (he is away from 04/03-04/09; will resume care ). Patient seen and examined at bedside. No family at bedside. Patient is on low dose Propfol and has IV flagyl at bedside. Patient responds to her name. She able to lift her hands up. Patient is yawning while intubated. Patient able to move her lower extremities. Patient denies pain over chest, denies abdomen during exam. Patient has edematous legs, which she does whince on exam. Discussed with ICU nurse, Radha, no events overnight. Objective - Vital Signs/Intake and Output Vital Signs (last 24 hours): Temp Pulse Resp BP Pulse Ox 97 F L 73 20 113/78 100 04/03/17 08:00 04/03/17 08:00 04/03/17 08:00 04/03/17 08:00 04/03/17 08:00 Intake and Output: 04/03/17 04/03/17 06:59 18:59 Intake Total 1380.0 52.5 Output Total 432 36 Balance 948.0 16.5 - Medications Medications: Current Medications Acetaminophen (Tylenol 325mg Tab) 650 mg PO Q6 PRN PRN Reason: Pain, moderate (4-7) Albuterol/Ipratropium (Duoneb 3 Mg/0.5 Mg (3 Ml) Ud) 3 ml INH RQ6 [facility] Last Admin: 04/03/17 08:27 Dose: 3 ml Atovaquone (Mepron) 1,500 mg PO ACL [facility] Last Admin: 04/02/17 10:51 Dose: 1,500 mg Clopidogrel Bisulfate (Plavix) 75 mg PO DAILY [facility] Last Admin: 04/02/17 09:24 Dose: 75 mg Emollient Ointment (Vaseline Oint) 5 gm TOP Q4 PRN PRN Reason: DRY SKIN Last Admin: 04/02/17 09:25 Dose: 5 gm Famotidine (Pepcid) 20 mg PO BID [facility] Last Admin: 04/02/17 17:26 Dose: 20 mg Gabapentin (Neurontin) 400 mg PO BID [facility] Last Admin: 04/02/17 17:26 Dose: 400 mg Hydroxychloroquine Sulfate (Plaquenil) 200 mg PO DAILY [facility] Last Admin: 04/02/17 09:24 Dose: 200 mg Doxycycline Hyclate 100 mg/ (Sodium Chloride) 100 mls @ 100 mls/hr IVPB Q12H [facility] Last Admin: 04/03/17 01:00 Dose: 100 mls/hr Fluconazole (Diflucan Iv 200 Mg/100 Ml Ns) 100 mls @ 100 mls/hr IVPB DAILY [facility] Last Admin: 04/02/17 09:43 Dose: 100 mls/hr Aztreonam 1 gm/ Sodium (Chloride) 100 mls @ 100 mls/hr IVPB Q8H [facility] Last Admin: 04/03/17 02:00 Dose: 100 mls/hr Metronidazole (Flagyl) 500 mg in 100 mls @ 100 mls/hr IVPB Q8 [facility] Last Admin: 04/03/17 05:00 Dose: 100 mls/hr Propofol (Diprivan) 1,000 mg in 100 mls @ 2.494 mls/hr IV .Q24H PRN; Protocol; 5 MCG/KG/MIN PRN Reason: TITRATE PER MD ORDER Last Admin: 04/03/17 02:57 Dose: 25 mcg/kg/min, 12.471 mls/hr Vancomycin HCl 1 gm/ Sodium (Chloride) 250 mls @ 133.333 mls/hr IVPB Q12H [facility] Last Admin: 04/02/17 20:29 Dose: 133.333 mls/hr Magnesium Sulfate/Dextrose (Magnesium Sulfate 1 Gm/100 Ml D5w) 1 gm in 100 mls @ 300 mls/hr IVPB Q30M [facility] Stop: 04/03/17 08:49 Potassium Chloride (Potassium Chloride 10 Meq/100 Ml) 10 meq in 100 mls @ 100 mls/hr IVPB Q1 [facility] Stop: 04/03/17 09:59 Methylprednisolone (Solu-Medrol) 250 mg IVP Q6H [facility] Stop: 04/03/17 17:01 Last Admin: 04/03/17 06:47 Dose: 250 mg Ondansetron HCl (Zofran Inj) 4 mg IVP Q6H PRN PRN Reason: Nausea/Vomiting Last Admin: 03/20/17 15:01 Dose: 4 mg Oseltamivir Phosphate (Tamiflu Cap) 75 mg PO BID [facility] Stop: 04/04/17 09:22 Last Admin: 04/02/17 17:26 Dose: 75 mg Rosuvastatin Calcium (Crestor) 20 mg PO HS [facility] Last Admin: 04/02/17 21:08 Dose: 20 mg - Labs Labs: 04/03/17 06:22 04/03/17 06:26 PT 16.2 SECONDS (9.7-12.2) H 03/20/17 04:08 INR 1.4 03/20/17 04:08 APTT 38 SECONDS (21-34) H D 03/20/17 04:08 - Constitutional Appears: Non-toxic, No Acute Distress, Chronically Ill - Head Exam Head Exam: NORMAL INSPECTION - Eye Exam Eye Exam: EOMI, PERRL. absent: Nystagmus, Scleral icterus - ENT Exam ENT Exam: Mucous Membranes Dry - Respiratory Exam Respiratory Exam: Decreased Breath Sounds, Rhonchi (bases). absent: Stridor - Cardiovascular Exam Cardiovascular Exam: REGULAR RHYTHM, +S1, +S2 - GI/Abdominal Exam GI & Abdominal Exam: Soft, Normal Bowel Sounds. absent: Distended, Firm, Guarding, Rigid, Tenderness, Rebound - Extremities Exam Extremities Exam: Pedal Edema. absent: Tenderness Additional comments: bilateral lower extremities edematous; pitting - Neurological Exam Neurological Exam: Alert, Awake - Skin Skin Exam: Dry, Intact, Normal Color, Warm Assessment and Plan (1) Acute respiratory failure Assessment & Plan: Patient was intubated 03/31 given respiratory distress. 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 Possible bronchscopy or broncholavag r/o infection. Patient is thrombocytopenia. Plavix discontinued today. I discussed with neurology prior to discontinuation given worsening thrombocytopenia and consideration for bronch. He does not agree with abnormal brain MRI given patient does not clinically present with symptoms. I was endorsed by PMD, He did have a discussion with family about VATS with Dr. Aquino, CT surgery, however decision not made by family. Mepron 1500mg PO ACL (cover for PCP in light of immunosuppression from lupus therapy) Fluconazole 200mg IVPB daily (since 03/30) Aztreonam 1 gram IVPB Q8H (since 03/30) Doxycycline 100mg IVQ12H (since 03/29) Tamiflu 75mg PO BID (03/30-04/04) Influenza: negative Legionella: negative Mycoplasma IgM: negative ASO: negative Will check HIV given patient is on nursing home suppression therapy prior for lupus. Status: Acute (2) Pneumonitis Assessment & Plan: secondary to lupus likely. 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 Pillai 04/02 Hematology: Dr. Olivia Daley on the case help appreciated Direct kimo negative low retic index; hypoproliferative erythroid response unlikely acute hemolysis anemia of chronic disease immunosuppression contribution on marrow Status: Chronic (6) Thrombocytopenia Assessment & Plan: if counts do not rebound, will need bone marrow evaluation per heme-onc when clinically stable per latest heme-onc note 04/03-->Discussed with Dr. Garibay, in light of worsening thrombocytopenia, discontinue Plavix. Patient had been on Plavix for abnormal brain MRI previously. 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 Neurology last noted from , neurologically stable. C/w Neurotin 400mg PO BID with PT and DVT ppX Workup: MRI of brain as acute to subacute process of infarct in mid pontine region, does not show clinical picture suggestive of ischemic process affecting pontine region. possible artifactual. Normal EEG. 03/22 Lumbar spine MRI- Multilevel degenerative spondylosis most significantly affecting the L3-L4 and L2-L3 levels and to a lesser degree L4-L5 levels. 03/22 Thoracic spine MRI- moderate to fairly significant degenerative spondylosis of the cervical spine seen on the sagittal counting sequence with the moderate canal stenosis as well as a cord compression most significant at at the C4-C5 and C5-C6 levels. Dr Olsen (spinal welfare specialist) for evaluation of MRI and recommendation , help appreciated- Dr Olsen saw and examined patient. No acute surgical intervention at time of assessment Note: patient has been on senior care immunosuppression for lupus * Lipid panel: low cholestrol, low TG, very low HDL; LDL: normal Hgba1c: 4.7 Status: Chronic (10) Edema Assessment & Plan: 03/29/17: venous doppler: negative for DVT b/l; was previously on diuretic therapy as outpatient Status: Chronic (11) Elevated troponin Assessment & Plan: Dr. Medellin (cardiolology) was consulted. Likely demand ischemia. Previous echocardiogram reveals normal left ventricular function. The patient is currently asymptomatic. If normalizes can consider d/c heparin. add antiplatelet therapy. Status: Resolved (12) CHF (congestive heart failure) Assessment & Plan: suspecting diastolic heart failure anticoagulation contraindicated secondary to thrombocytopenia Crestor 20mg POHS off antihypertensive therapy (blood pressure is normal limits) Echocardiogram: left ventricle systolic function is normal/ EF: 75%. Abnormal relaxation pattern. Mild pulm hypertension. Status: Chronic (13) Disorder of electrolytes Assessment & Plan: repleted Status: Acute (14) Prophylactic measure Assessment & Plan: Anticoagulation contraindicated secondary to thrombocytopenia d/c Plavix, discussed with Dr. garibay in light of worsening thrombocytopenia Status: Acute - Assessment and Plan (Free Text) Assessment: Consideration for possible bronch/BAL r/o infection Plavix d/c in light of thrombocytopenia Will order for HIV in light of immunosuppresion Patient is on low dose sedation and high dose steroids since 04/02. Further management per ICU. ID, Rheum, and Heme-onc on board. Hospitalist service will continue to follow and cover Dr. Pillai service 04/03- 04/09. Dr. Pillai to resume service 04/10/17.
[2017-04-03 08:44] LABS: LYMPHOCYTE 4 % (20-40); MONOCYTE 8 % (0-10); NEUTROPHIL 88 % (50-75); TOTAL CELLS COUNTED 100
[2017-04-03 08:45] LABS: ANISOCYTOSIS SLIGHT; HYPOCHROMIC SLIGHT; PLATELET ESTIMATE MARKEDLY DECREASED (NORMAL); POLYCHROMIC SLIGHT
[2017-04-03 08:46] LABS: GIANT PLATELETS PRESENT
[2017-04-03] MEDS: Magnesium Sulfate 1 gm in D5W 1 GM/100 ML BAG IVPB SCH ×2 (08:55→08:57)
[2017-04-03] MEDS: Fluconazole IV 200mg/100 ml NS 100 ML IVPB SCH (09:08)
--- NOTE | 2017-04-03 10:18 | RAD ---
HISTORY: follow up pulmonary edema COMPARISON: 04/01/2017 FINDINGS: The endotracheal tube is stable position. The nasogastric tube terminates in the stomach. LUNGS: There is interval improved aeration in both lungs with residual haziness, pulmonary venous congestion and interstitial edema. PLEURA: Suspect left pleural effusion, no pneumothorax apparent. CARDIOVASCULAR: Normal. OSSEOUS STRUCTURES: No significant abnormalities. VISUALIZED UPPER ABDOMEN: Normal. OTHER FINDINGS: None. IMPRESSION: Improving pulmonary edema.
[2017-04-03] MEDS: Atovaquone 750 mg/5 ml Susp UD PO SCH (10:45)
--- NOTE | 2017-04-03 14:52 | CP.CCUPN ---
CCU Subjective - Physician Review Events Since Last Encounter (Free Text): 04/03/17 14:56 Patient today is more awake, more responding. Still on ventilator. Secretions is very minimal. No fever today. Edema noted. Sacral decubiti noted. Clear urine in the Lewis noted Patient is tolerating the feeding Vital signs reviewed No neck vein distention noted Chest minimal bilateral wheezing noted CVS regular heart sound, no murmur noted Abdomen soft, nontender. Bilateral pedal edema noted Patient is awake and responding. Lower extremity weakness noted Labs repeated X-ray of the chest is interpreted changes improving No recent positive cultures I spoke to the claims collector, and oncologist. High-dose methylprednisolone, 1 g daily for 3 days, will see the prognosis. Low platelet count. Assessment and recommendation: 61-year-old female with long-standing connective tissue disease, scleroderma, and associated possible overlap syndrome. Patient also has a pulmonary infiltrate. Oxygenation is improving. Now on high-dose corticosteroid. Will monitor 2 more days. Sputum culture. Bronchoscopy maybe tomorrow. Hematological, oncological follow-up CCU Objective - Vital Signs / Intake & Output Vital Signs (Last 4 hours): Vital Signs Temp Pulse Resp BP Pulse Ox 04/03/17 12:00 97.4 F L 83 21 126/83 100 04/03/17 11:01 79 20 125/81 99 04/03/17 11:00 79 20 100 Intake and Output (Last 8hrs): Intake & Output 04/02/17 04/03/17 04/03/17 22:59 06:59 14:59 Intake Total 1070.0 820.0 1225.0 Output Total 270 288 326 Balance 800.0 532.0 899.0 Weight 191 lb Intake: IV 100 100 100 Intake, IV Amount 650.0 400.0 675.0 Left Antecubital Mid-Line 100.0 100.0 75.0 #2 Left Antecubital Mid-line 550 300 400 Right Hand 200 Tube Feeding 320 320 240 Other 210 Output: Urine 270 288 326 Urethral (Lewis) 270 288 326 Other: # Bowel Movements 1 - Physical Exam Head: Positive for: Atraumatic, Normocephalic Pupils: Positive for: PERRL Extroacular Muscles: Positive for: EOMI Conjunctiva: Positive for: Normal Mouth: Positive for: Moist Mucous Membranes Neck: Positive for: Normal Range of Motion Respiratory/Chest: Positive for: Accessory Muscle Use, Wheezes, Rales, Other ( BiPAP). Negative for: Rhonchi Cardiovascular: Positive for: Normal S1, S2, Tachycardic Abdomen: Positive for: Normal Bowel Sounds. Negative for: Tenderness, Distention, Peritoneal Signs Upper Extremity: Positive for: Normal Inspection Lower Extremity: Positive for: Edema. Negative for: Tenderness Neurological: Positive for: GCS=15, Speech Normal Skin: Positive for: Warm, Dry. Negative for: Rashes Psychiatric: Positive for: Alert, Oriented x 3, Normal Insight, Normal Concentration - Medications Active Medications: Active Medications Generic Name Dose Route Start Last Admin Trade Name Freq PRN Reason Stop Dose Admin Acetaminophen 650 mg 03/31/17 12:52 Tylenol 325mg Tab PO Q6 PRN Pain, moderate (4-7) Albuterol/Ipratropium 3 ml 04/01/17 14:00 04/03/17 13:22 Duoneb 3 Mg/0.5 Mg (3 Ml) Ud INH 3 ml RQ6 IMAN Administration Atovaquone 1,500 mg 03/30/17 11:30 04/03/17 10:45 Mepron PO 1,500 mg ACL IMAN Administration Emollient Ointment 5 gm 03/31/17 12:18 04/02/17 09:25 Vaseline Oint TOP 5 gm Q4 PRN Administration DRY SKIN Gabapentin 400 mg 03/23/17 10:00 04/03/17 09:13 Neurontin PO 400 mg BID IMAN Administration Hydroxychloroquine Sulfate 200 mg 03/28/17 10:00 04/03/17 09:13 Plaquenil PO 200 mg DAILY IMAN Administration Doxycycline Hyclate 100 mg/ 100 mls @ 100 mls/hr 03/29/17 14:00 04/03/17 13: 08 Sodium Chloride IVPB 100 mls/hr Q12H IMAN Administration Fluconazole 100 mls @ 100 mls/hr 03/30/17 10:00 04/03/17 09:08 Diflucan Iv 200 Mg/100 Ml Ns IVPB 100 mls/hr DAILY IMAN Administration Aztreonam 1 gm/ Sodium 100 mls @ 100 mls/hr 03/30/17 10:30 04/03/17 09:36 Chloride IVPB 100 mls/hr Q8H IMAN Administration Metronidazole 500 mg in 100 mls @ 100 mls/hr 03/30/17 14:00 04/03/17 13:09 Flagyl IVPB 100 mls/hr Q8 IMAN Administration Propofol 1,000 mg in 100 mls @ 2.494 mls/hr 03/31/17 15:15 04/03/17 09:00 Diprivan IV 25 mcg/kg/min .Q24H PRN 12.471 mls/hr TITRATE PER MD ORDER Administration Protocol 5 MCG/KG/MIN Vancomycin HCl 1 gm/ Sodium 250 mls @ 133.333 mls/hr 04/01/17 21:30 04/02/17 20:29 Chloride IVPB 133.333 mls/hr Q12H IMAN Administration Methylprednisolone 250 mg 04/02/17 13:48 04/03/17 13:08 Solu-Medrol IVP 04/03/17 17:01 250 mg Q6H IMAN Administration Ondansetron HCl 4 mg 03/20/17 15:00 03/20/17 15:01 Zofran Inj IVP 4 mg Q6H PRN Administration Nausea/Vomiting Oseltamivir Phosphate 75 mg 03/30/17 10:00 04/03/17 09:15 Tamiflu Cap PO 04/04/17 09:22 75 mg BID IMAN Administration Rosuvastatin Calcium 20 mg 03/23/17 22:00 04/02/17 21:08 Crestor PO 20 mg HS IMAN Administration - Patient Studies Lab Studies: Microbiology Studies 04/02/17 Unknown Gram Stain - Final Trachasp Lab Studies 04/03/17 04/03/17 04/03/17 Range/Units 11:52 06:26 06:22 WBC 7.4 (4.8-10.8) K/uL RBC 3.52 L (3.80-5.20) Mil/uL Hgb 10.5 L (11.0-16.0) g/dL Hct 31.0 L (34.0-47.0) % MCV 87.9 (81.0-99.0) fL MCH 29.8 (27.0-31.0) pg MCHC 33.9 (33.0-37.0) g/dL RDW 18.2 H (11.5-14.5) % Plt Count 17 L* D (130-400) K/uL MPV 10.1 (7.2-11.7) fL Neut % (Auto) 89.1 H (50.0-75.0) % Lymph % (Auto) 2.8 L (20.0-40.0) % [place] % (Auto) 7.7 (0.0-10.0) % Eos % (Auto) 0.1 (0.0-4.0) % Baso % (Auto) 0.3 (0.0-2.0) % Neut # 6.6 (1.8-7.0) K/uL Lymph # 0.2 L (1.0-4.3) K/uL [place] # 0.6 (0.0-0.8) K/uL Eos # 0.0 (0.0-0.7) K/uL Baso # 0.0 (0.0-0.2) K/uL Neutrophils % (Manual) 88 H (50-75) % Lymphocytes % (Manual) 4 L (20-40) % Monocytes % (Manual) 8 (0-10) % Platelet Estimate Markedly decreased L (NORMAL) Giant Platelets Present Polychromasia Slight Hypochromasia (manual) Slight Anisocytosis (manual) Slight Puncture Site pCO2 (35-45) mm/Hg pO2 (80-100) mm/Hg HCO3 (21-28) mmol/L ABG pH (7.35-7.45) ABG Total CO2 (22-28) mmol/L ABG O2 Saturation (95-98) % ABG Base Excess (-2.0-3.0) mmol/L ABG Hemoglobin (11.7-17.4) g/dL ABG Carboxyhemoglobin (0.5-1.5) % POC ABG HHb (Measured) (0.0-5.0) % ABG Methemoglobin (0.0-3.0) % Daljit Test A-a O2 Difference mm/Hg Respiratory Index Hgb O2 Saturation (95.0-98.0) % Vent Mode Mechanical Rate FiO2 % Tidal Volume PEEP Sodium 136 (132-148) mmol/L Potassium 3.3 L (3.6-5.2) mmol/L Chloride 108 H (98-107) mmol/L Carbon Dioxide 25 (22-30) mmol/L Anion Gap 6 L (10-20) BUN 34 H (7-17) mg/dL Creatinine 0.4 L (0.7-1.2) mg/dL Est GFR ( Amer) > 60 Est GFR (Non-Af Amer) > 60 POC Glucose (mg/dL) 168 H (65-110) mg/dL Random Glucose 135 H (65-105) mg/dL Calcium 8.1 L (8.6-10.4) mg/dl Phosphorus 2.8 (2.5-4.5) mg/dL Magnesium 1.5 L (1.6-2.3) mg/dL Total Bilirubin 1.4 H (0.2-1.3) mg/dL AST 50 H (14-36) U/L ALT 51 (9-52) U/L Alkaline Phosphatase 200 H (38-126) U/L Total Protein 4.4 L (6.3-8.3) g/dL Albumin 1.9 L (3.5-5.0) g/dL Globulin 2.5 (2.2-3.9) gm/dL Albumin/Globulin Ratio 0.8 L (1.0-2.1) Vancomycin Trough (5.0-10.0) ug/mL 04/03/17 04/03/17 04/03/17 Range/Units 05:47 05:17 00:15 WBC (4.8-10.8) K/uL RBC (3.80-5.20) Mil/uL Hgb (11.0-16.0) g/dL Hct (34.0-47.0) % MCV (81.0-99.0) fL MCH (27.0-31.0) pg MCHC (33.0-37.0) g/dL RDW (11.5-14.5) % Plt Count (130-400) K/uL MPV (7.2-11.7) fL Neut % (Auto) (50.0-75.0) % Lymph % (Auto) (20.0-40.0) % [place] % (Auto) (0.0-10.0) % Eos % (Auto) (0.0-4.0) % Baso % (Auto) (0.0-2.0) % Neut # (1.8-7.0) K/uL Lymph # (1.0-4.3) K/uL [place] # (0.0-0.8) K/uL Eos # (0.0-0.7) K/uL Baso # (0.0-0.2) K/uL Neutrophils % (Manual) (50-75) % Lymphocytes % (Manual) (20-40) % Monocytes % (Manual) (0-10) % Platelet Estimate (NORMAL) Giant Platelets Polychromasia Hypochromasia (manual) Anisocytosis (manual) Puncture Site Rr pCO2 34 L (35-45) mm/Hg pO2 158 H (80-100) mm/Hg HCO3 25.9 (21-28) mmol/L ABG pH 7.47 H (7.35-7.45) ABG Total CO2 25.7 (22-28) mmol/L ABG O2 Saturation 99.5 H (95-98) % ABG Base Excess 1.3 (-2.0-3.0) mmol/L ABG Hemoglobin 10.3 L (11.7-17.4) g/dL ABG Carboxyhemoglobin 2.0 H (0.5-1.5) % POC ABG HHb (Measured) 0.5 (0.0-5.0) % ABG Methemoglobin 1.0 (0.0-3.0) % Daljit Test Pos A-a O2 Difference 156.0 mm/Hg Respiratory Index 1.0 Hgb O2 Saturation 96.5 (95.0-98.0) % Vent Mode Prvc Mechanical Rate 25 FiO2 50.0 % Tidal Volume 450 PEEP 8 Sodium (132-148) mmol/L Potassium (3.6-5.2) mmol/L Chloride (98-107) mmol/L Carbon Dioxide (22-30) mmol/L Anion Gap (10-20) BUN (7-17) mg/dL Creatinine (0.7-1.2) mg/dL Est GFR ( Amer) Est GFR (Non-Af Amer) POC Glucose (mg/dL) 149 H 161 H (65-110) mg/dL Random Glucose (65-105) mg/dL Calcium (8.6-10.4) mg/dl Phosphorus (2.5-4.5) mg/dL Magnesium (1.6-2.3) mg/dL Total Bilirubin (0.2-1.3) mg/dL AST (14-36) U/L ALT (9-52) U/L Alkaline Phosphatase (38-126) U/L Total Protein (6.3-8.3) g/dL Albumin (3.5-5.0) g/dL Globulin (2.2-3.9) gm/dL Albumin/Globulin Ratio (1.0-2.1) Vancomycin Trough (5.0-10.0) ug/mL 04/02/17 04/02/17 Range/Units 17:33 14:41 WBC (4.8-10.8) K/uL RBC (3.80-5.20) Mil/uL Hgb (11.0-16.0) g/dL Hct (34.0-47.0) % MCV (81.0-99.0) fL MCH (27.0-31.0) pg MCHC (33.0-37.0) g/dL RDW (11.5-14.5) % Plt Count (130-400) K/uL MPV (7.2-11.7) fL Neut % (Auto) (50.0-75.0) % Lymph % (Auto) (20.0-40.0) % [place] % (Auto) (0.0-10.0) % Eos % (Auto) (0.0-4.0) % Baso % (Auto) (0.0-2.0) % Neut # (1.8-7.0) K/uL Lymph # (1.0-4.3) K/uL [place] # (0.0-0.8) K/uL Eos # (0.0-0.7) K/uL Baso # (0.0-0.2) K/uL Neutrophils % (Manual) (50-75) % Lymphocytes % (Manual) (20-40) % Monocytes % (Manual) (0-10) % Platelet Estimate (NORMAL) Giant Platelets Polychromasia Hypochromasia (manual) Anisocytosis (manual) Puncture Site pCO2 (35-45) mm/Hg pO2 (80-100) mm/Hg HCO3 (21-28) mmol/L ABG pH (7.35-7.45) ABG Total CO2 (22-28) mmol/L ABG O2 Saturation (95-98) % ABG Base Excess (-2.0-3.0) mmol/L ABG Hemoglobin (11.7-17.4) g/dL ABG Carboxyhemoglobin (0.5-1.5) % POC ABG HHb (Measured) (0.0-5.0) % ABG Methemoglobin (0.0-3.0) % Daljit Test A-a O2 Difference mm/Hg Respiratory Index Hgb O2 Saturation (95.0-98.0) % Vent Mode Mechanical Rate FiO2 % Tidal Volume PEEP Sodium (132-148) mmol/L Potassium (3.6-5.2) mmol/L Chloride (98-107) mmol/L Carbon Dioxide (22-30) mmol/L Anion Gap (10-20) BUN (7-17) mg/dL Creatinine (0.7-1.2) mg/dL Est GFR ( Amer) Est GFR (Non-Af Amer) POC Glucose (mg/dL) 155 H (65-110) mg/dL Random Glucose (65-105) mg/dL Calcium (8.6-10.4) mg/dl Phosphorus (2.5-4.5) mg/dL Magnesium (1.6-2.3) mg/dL Total Bilirubin (0.2-1.3) mg/dL AST (14-36) U/L ALT (9-52) U/L Alkaline Phosphatase (38-126) U/L Total Protein (6.3-8.3) g/dL Albumin (3.5-5.0) g/dL Globulin (2.2-3.9) gm/dL Albumin/Globulin Ratio (1.0-2.1) Vancomycin Trough 18.0 H (5.0-10.0) ug/mL Laboratory Results - last 24 hr 04/02/17 04/02/17 04/03/17 14:41 17:33 00:15 WBC RBC Hgb Hct MCV MCH MCHC RDW Plt Count MPV Neut % (Auto) Lymph % (Auto) [place] % (Auto) Eos % (Auto) Baso % (Auto) Neut # Lymph # [place] # Eos # Baso # Neutrophils % (Manual) Lymphocytes % (Manual) Monocytes % (Manual) Platelet Estimate Giant Platelets Polychromasia Hypochromasia (manual) Anisocytosis (manual) Puncture Site pCO2 pO2 HCO3 ABG pH ABG Total CO2 ABG O2 Saturation ABG Base Excess ABG Hemoglobin ABG Carboxyhemoglobin POC ABG HHb (Measured) ABG Methemoglobin Daljit Test A-a O2 Difference Respiratory Index Hgb O2 Saturation Vent Mode Mechanical Rate FiO2 Tidal Volume PEEP Sodium Potassium Chloride Carbon Dioxide Anion Gap BUN Creatinine Est GFR ( Amer) Est GFR (Non-Af Amer) POC Glucose (mg/dL) 155 H 161 H Random Glucose Calcium Phosphorus Magnesium Total Bilirubin AST ALT Alkaline Phosphatase Total Protein Albumin Globulin Albumin/Globulin Ratio Vancomycin Trough 18.0 H 04/03/17 04/03/17 04/03/17 05:17 05:47 06:22 WBC 7.4 RBC 3.52 L Hgb 10.5 L Hct 31.0 L MCV 87.9 MCH 29.8 MCHC 33.9 RDW 18.2 H Plt Count 17 L* D MPV 10.1 Neut % (Auto) 89.1 H Lymph % (Auto) 2.8 L [place] % (Auto) 7.7 Eos % (Auto) 0.1 Baso % (Auto) 0.3 Neut # 6.6 Lymph # 0.2 L [place] # 0.6 Eos # 0.0 Baso # 0.0 Neutrophils % (Manual) 88 H Lymphocytes % (Manual) 4 L Monocytes % (Manual) 8 Platelet Estimate Markedly decreased L Giant Platelets Present Polychromasia Slight Hypochromasia (manual) Slight Anisocytosis (manual) Slight Puncture Site Rr pCO2 34 L pO2 158 H HCO3 25.9 ABG pH 7.47 H ABG Total CO2 25.7 ABG O2 Saturation 99.5 H ABG Base Excess 1.3 ABG Hemoglobin 10.3 L ABG Carboxyhemoglobin 2.0 H POC ABG HHb (Measured) 0.5 ABG Methemoglobin 1.0 Daljit Test Pos A-a O2 Difference 156.0 Respiratory Index 1.0 Hgb O2 Saturation 96.5 Vent Mode Prvc Mechanical Rate 25 FiO2 50.0 Tidal Volume 450 PEEP 8 Sodium Potassium Chloride Carbon Dioxide Anion Gap BUN Creatinine Est GFR ( Amer) Est GFR (Non-Af Amer) POC Glucose (mg/dL) 149 H Random Glucose Calcium Phosphorus Magnesium Total Bilirubin AST ALT Alkaline Phosphatase Total Protein Albumin Globulin Albumin/Globulin Ratio Vancomycin Trough 04/03/17 04/03/17 06:26 11:52 WBC RBC Hgb Hct MCV MCH MCHC RDW Plt Count MPV Neut % (Auto) Lymph % (Auto) [place] % (Auto) Eos % (Auto) Baso % (Auto) Neut # Lymph # [place] # Eos # Baso # Neutrophils % (Manual) Lymphocytes % (Manual) Monocytes % (Manual) Platelet Estimate Giant Platelets Polychromasia Hypochromasia (manual) Anisocytosis (manual) Puncture Site pCO2 pO2 HCO3 ABG pH ABG Total CO2 ABG O2 Saturation ABG Base Excess ABG Hemoglobin ABG Carboxyhemoglobin POC ABG HHb (Measured) ABG Methemoglobin Daljit Test A-a O2 Difference Respiratory Index Hgb O2 Saturation Vent Mode Mechanical Rate FiO2 Tidal Volume PEEP Sodium 136 Potassium 3.3 L Chloride 108 H Carbon Dioxide 25 Anion Gap 6 L BUN 34 H Creatinine 0.4 L Est GFR ( Amer) > 60 Est GFR (Non-Af Amer) > 60 POC Glucose (mg/dL) 168 H Random Glucose 135 H Calcium 8.1 L Phosphorus 2.8 Magnesium 1.5 L Total Bilirubin 1.4 H AST 50 H ALT 51 Alkaline Phosphatase 200 H Total Protein 4.4 L Albumin 1.9 L Globulin 2.5 Albumin/Globulin Ratio 0.8 L Vancomycin Trough Fingerstick Blood Sugar Results: 161
--- NOTE | 2017-04-03 18:47 | PN ---
DATE: 04/03/2017 NEUROLOGICAL FOLLOWUP EVALUATION NEUROLOGICAL PROBLEM: 1. 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 2. Possible brainstem ischemia as per the MRI. PHYSICAL EXAMINATION: RECENT VITAL SIGNS: Blood pressure 126/83, mean arterial pressure of 95, respiratory rate is 16, temperature 97.4. The patient is on the vent. The patient's recent workup and events have been reviewed by me. At present, the patient is on vent with sedation, verbally arousable on calling her name. She moves both upper extremities and wiggle her toes as per command. Extraocular movement decreased because she is sedated. She does not cooperate. Gag intact on manipulating the endotracheal tube. Deep tendon reflexes are absent. Responds to pain, grimacing her face. 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 From neurological point of view, Plavix was stopped because of the thrombocytopenia. Continue the present management. The patient will be followed closely with you. Andres Wilson MD
[2017-04-04] MEDS: Albuterol-Ipratrop 3 mg / 0.5 (3 ml) UD INH SCH ×4 (02:08→20:40)
[2017-04-04] MEDS: Aztreonam 1 GM in Sodium Chloride 0.9% 100 ML IVPB SCH ×3 (02:43→17:33)
[2017-04-04 06:31] LABS: BASO % 0.5 % (0.0-2.0); HEMOGLOBIN 10.3 g/dL (11.0-16.0); LYMPH # 0.2 K/uL (1.0-4.3); MEAN CELL VOLUME 88.3 fL (81.0-99.0); MEAN CORPUSCULAR HEMOGLOBIN 29.8 pg (27.0-31.0); MEAN CORPUSCULAR HGB CONC 33.7 g/dL (33.0-37.0); MEAN PLATELET VOLUME 9.9 fL (7.2-11.7); MONO # 0.7 K/uL (0.0-0.8); MONO % 7.5 % (0.0-10.0); NEUT # 8.5 K/uL (1.8-7.0); NRBC % 0.2 % (0.0-2.0); RBC 3.46 Mil/uL (3.80-5.20); RED CELL DISTRIBUTION WIDTH 18.4 % (11.5-14.5); WHITE BLOOD COUNT 9.4 K/uL (4.8-10.8)
[2017-04-04 06:32] LABS: ABG ALLEN TEST POS; ARTERIAL BLOOD GAS HEMOGLOBIN 10.5 g/dL (11.7-17.4); ARTERIAL BLOOD GAS O2 SAT 99.3 % (95-98); ARTERIAL BLOOD GAS PCO2 43 mm/Hg (35-45); ARTERIAL BLOOD GAS PH 7.38 (7.35-7.45); ARTERIAL BLOOD GAS PO2 136 mm/Hg (80-100); ARTERIAL BLOOD GAS TCO2 26.7 mmol/L (22-28)
[2017-04-04 06:42] LABS: PLATELET COUNT 15 K/uL (130-400)
[2017-04-04 06:56] LABS: ALB/GLOB RATIO 0.7 (1.0-2.1); ALBUMIN 1.8 g/dL (3.5-5.0); ALT/SGPT 77 U/L (9-52); AST/SGOT 61 U/L (14-36); BLOOD UREA NITROGEN 33 mg/dL (7-17); CALCIUM 7.9 mg/dl (8.6-10.4); GFR AFRICAN-AMERICAN > 60; GFR NON-AFRICAN AMERICAN > 60
[2017-04-04] MEDS: Propofol 10 mg/ml 1,000 MG/100 ML VIAL IV PRN ×3 (07:45→22:00)
--- NOTE | 2017-04-04 08:11 | PN ---
SUBJECTIVE: The patient states that the patient is on BiPAP. She is still very hypoxic. Chest x-ray, bilateral infiltrates. The patient on antibacterial with no significant improvement in ventilatory status, and the patient may need to be intubated, because the patient is stable for bronchoscopy, consider she is on own coverage, and we will continue the empirical treatment. Prognosis is guarded. Marah Pillai MD
[2017-04-04 08:31] LABS: ANISOCYTOSIS SLIGHT; BURR CELLS SLIGHT; HYPOCHROMIC SLIGHT; LYMPHOCYTE 4 % (20-40); MONOCYTE 4 % (0-10); NEUTROPHIL 92 % (50-75); PLATELET ESTIMATE MARKEDLY DECREASED (NORMAL); POIKILOCYTOSIS SLIGHT; TOTAL CELLS COUNTED 100
--- NOTE | 2017-04-04 08:40 | RAD ---
HISTORY: Follow up on ARDs? COMPARISON: 04/03/2017 at 0720 hours FINDINGS: LUNGS: The patchy bilateral interstitial and coalescent airspace opacity Previously referenced as pulmonary interstitial and coalescent edema are renoted. There is decreased haziness to this appearance of the right hemithorax consistent with some improvement in aeration PLEURA: Small bilateral pleural effusions CARDIOVASCULAR: Minimal cardiomegaly -similar OSSEOUS STRUCTURES: Thoracic spondylosis. Shoulder arthrosis VISUALIZED UPPER ABDOMEN: Normal. OTHER FINDINGS: Endotracheal tube and NG tube its courses in satisfactory position- as before IMPRESSION: Slight improved aeration in the pulmonary interstitial edema pattern patient with clinical history of ARDS Support lines satisfactory
[2017-04-04] MEDS: Fluconazole IV 200mg/100 ml NS 100 ML IVPB SCH (09:29)
--- NOTE | 2017-04-04 10:34 | CP.CCUPN ---
<SukhKiranThais - Last Filed: 04/04/17 16:46> CCU Subjective - Physician Review Subjective (Free Text): Patient seen and examined at bedside. Patient intubated/sedated. ROS unattainable. No acute events overnight. 04/04/17 10:31 CCU Objective - Vital Signs / Intake & Output Vital Signs (Last 4 hours): Vital Signs Temp Pulse Resp BP Pulse Ox 04/04/17 10:00 80 20 110/68 98 04/04/17 09:01 87 17 120/65 95 04/04/17 09:00 82 21 99 04/04/17 08:01 78 20 121/76 100 04/04/17 08:00 97.1 F L 81 20 100 04/04/17 07:00 83 20 124/81 100 Intake and Output (Last 8hrs): Intake & Output 04/03/17 04/04/17 04/04/17 22:59 06:59 14:59 Intake Total 641.6 520.0 310.0 Output Total 270 300 165 Balance 371.6 220.0 145.0 Weight 194 lb Intake: IV 100 100 100 Intake, IV Amount 221.6 100.0 50.0 Left Antecubital Mid-Line 100.0 100.0 50.0 #2 Left Antecubital Mid-line 100 Left Upper arm 11.6 Right Hand 10 Tube Feeding 320 320 160 Output: Urine 270 300 165 Urethral (Lewis) 270 300 165 Other: # Bowel Movements 1 - Physical Exam Physical Exam Limitations: Positive for: Altered Mental Status (intubated/ sedated ) Head: Positive for: Atraumatic, Normocephalic Pupils: Positive for: PERRL Conjunctiva: Positive for: Normal Mouth: Positive for: Other (ET Tube in place ) Respiratory/Chest: Positive for: Rales, Other (Vent 20/5/50). Negative for: Wheezes, Rhonchi Cardiovascular: Positive for: Regular Rate and Rhythm, Normal S1, S2. Negative for: Tachycardic, Bradycardic Abdomen: Negative for: Distention, Peritoneal Signs Upper Extremity: Positive for: Normal Inspection Lower Extremity: Positive for: Edema. Negative for: Tenderness Neurological: Positive for: Speech Normal, Other (GCS=10t) Skin: Positive for: Warm, Dry. Negative for: Rashes - Medications Active Medications: Active Medications Generic Name Dose Route Start Last Admin Trade Name Freq PRN Reason Stop Dose Admin Acetaminophen 650 mg 03/31/17 12:52 Tylenol 325mg Tab PO Q6 PRN Pain, moderate (4-7) Albuterol/Ipratropium 3 ml 04/01/17 14:00 04/04/17 08:15 Duoneb 3 Mg/0.5 Mg (3 Ml) Ud INH 3 ml RQ6 IMAN Administration Atovaquone 1,500 mg 03/30/17 11:30 04/03/17 10:45 Mepron PO 1,500 mg ACL IMAN Administration Emollient Ointment 5 gm 03/31/17 12:18 04/02/17 09:25 Vaseline Oint TOP 5 gm Q4 PRN Administration DRY SKIN Gabapentin 400 mg 03/23/17 10:00 04/04/17 09:29 Neurontin PO 400 mg BID IMAN Administration Hydroxychloroquine Sulfate 200 mg 03/28/17 10:00 04/04/17 09:29 Plaquenil PO 200 mg DAILY IMAN Administration Doxycycline Hyclate 100 mg/ 100 mls @ 100 mls/hr 03/29/17 14:00 04/04/17 01: 35 Sodium Chloride IVPB 100 mls/hr Q12H IMAN Administration Fluconazole 100 mls @ 100 mls/hr 03/30/17 10:00 04/04/17 09:29 Diflucan Iv 200 Mg/100 Ml Ns IVPB 100 mls/hr DAILY IMAN Administration Aztreonam 1 gm/ Sodium 100 mls @ 100 mls/hr 03/30/17 10:30 04/04/17 10:02 Chloride IVPB 100 mls/hr Q8H IMAN Administration Propofol 1,000 mg in 100 mls @ 2.494 mls/hr 03/31/17 15:15 04/04/17 07:45 Diprivan IV 25 mcg/kg/min .Q24H PRN 12.471 mls/hr TITRATE PER MD ORDER Administration Protocol 5 MCG/KG/MIN Vancomycin HCl 1 gm/ Sodium 250 mls @ 133.333 mls/hr 04/01/17 21:30 04/02/17 20:29 Chloride IVPB 133.333 mls/hr Q12H IMAN Administration Methylprednisolone 125 mg 04/04/17 12:00 Solu-Medrol IV Q6 IMAN Ondansetron HCl 4 mg 03/20/17 15:00 03/20/17 15:01 Zofran Inj IVP 4 mg Q6H PRN Administration Nausea/Vomiting Rosuvastatin Calcium 20 mg 03/23/17 22:00 04/03/17 21:35 Crestor PO 20 mg HS IMAN Administration - Patient Studies Lab Studies: Lab Studies 04/04/17 04/04/17 04/04/17 Range/Units 06:34 06:25 06:25 WBC (4.8-10.8) K/uL RBC (3.80-5.20) Mil/uL Hgb (11.0-16.0) g/dL Hct (34.0-47.0) % MCV (81.0-99.0) fL MCH (27.0-31.0) pg MCHC (33.0-37.0) g/dL RDW (11.5-14.5) % Plt Count (130-400) K/uL MPV (7.2-11.7) fL Neut % (Auto) (50.0-75.0) % Lymph % (Auto) (20.0-40.0) % Mckinley % (Auto) (0.0-10.0) % Eos % (Auto) (0.0-4.0) % Baso % (Auto) (0.0-2.0) % Neut # (1.8-7.0) K/uL Lymph # (1.0-4.3) K/uL M[place] # (0.0-0.8) K/uL Eos # (0.0-0.7) K/uL Baso # (0.0-0.2) K/uL Neutrophils % (Manual) (50-75) % Lymphocytes % (Manual) (20-40) % Monocytes % (Manual) (0-10) % Platelet Estimate (NORMAL) Hypochromasia (manual) Poikilocytosis (manual Basophilic Stippling Anisocytosis (manual) [place] Cells ESR 18 (0-20) mm/hr Puncture Site pCO2 (35-45) mm/Hg pO2 (80-100) mm/Hg HCO3 (21-28) mmol/L ABG pH (7.35-7.45) ABG Total CO2 (22-28) mmol/L ABG O2 Saturation (95-98) % ABG Base Excess (-2.0-3.0) mmol/L ABG Hemoglobin (11.7-17.4) g/dL ABG Carboxyhemoglobin (0.5-1.5) % POC ABG HHb (Measured) (0.0-5.0) % ABG Methemoglobin (0.0-3.0) % Daljit Test A-a O2 Difference mm/Hg Respiratory Index Hgb O2 Saturation (95.0-98.0) % Vent Mode Mechanical Rate FiO2 % Tidal Volume PEEP Sodium 136 (132-148) mmol/L Potassium 3.7 (3.6-5.2) mmol/L Chloride 108 H (98-107) mmol/L Carbon Dioxide 28 (22-30) mmol/L Anion Gap 4 L (10-20) BUN 33 H (7-17) mg/dL Creatinine 0.4 L (0.7-1.2) mg/dL Est GFR ( Amer) > 60 Est GFR (Non-Af Amer) > 60 POC Glucose (mg/dL) 121 H (65-110) mg/dL Random Glucose 136 H (65-105) mg/dL Calcium 7.9 L (8.6-10.4) mg/dl Total Bilirubin 1.1 (0.2-1.3) mg/dL AST 61 H D (14-36) U/L ALT 77 H D (9-52) U/L Alkaline Phosphatase 241 H D (38-126) U/L Total Protein 4.5 L (6.3-8.3) g/dL Albumin 1.8 L (3.5-5.0) g/dL Globulin 2.7 (2.2-3.9) gm/dL Albumin/Globulin Ratio 0.7 L (1.0-2.1) HIV 1&2 Antibody Screen (NEGATIVE) 04/04/17 04/04/17 04/04/17 Range/Units 06:25 06:24 05:02 WBC 9.4 (4.8-10.8) K/uL RBC 3.46 L (3.80-5.20) Mil/uL Hgb 10.3 L (11.0-16.0) g/dL Hct 30.6 L (34.0-47.0) % MCV 88.3 (81.0-99.0) fL MCH 29.8 (27.0-31.0) pg MCHC 33.7 (33.0-37.0) g/dL RDW 18.4 H (11.5-14.5) % Plt Count 15 L* (130-400) K/uL MPV 9.9 (7.2-11.7) fL Neut % (Auto) 90.0 H (50.0-75.0) % Lymph % (Auto) 2.0 L (20.0-40.0) % Mck[place] % (Auto) 7.5 (0.0-10.0) % Eos % (Auto) 0.0 (0.0-4.0) % Baso % (Auto) 0.5 (0.0-2.0) % Neut # 8.5 H (1.8-7.0) K/uL Lymph # 0.2 L (1.0-4.3) K/uL Mck[place]ley # 0.7 (0.0-0.8) K/uL Eos # 0.0 (0.0-0.7) K/uL Baso # 0.0 (0.0-0.2) K/uL Neutrophils % (Manual) 92 H (50-75) % Lymphocytes % (Manual) 4 L (20-40) % Monocytes % (Manual) 4 (0-10) % Platelet Estimate Markedly decreased L (NORMAL) Hypochromasia (manual) Slight Poikilocytosis (manual Slight Basophilic Stippling Slight Anisocytosis (manual) Slight Daya Cells Slight ESR (0-20) mm/hr Puncture Site Rr pCO2 43 (35-45) mm/Hg pO2 136 H (80-100) mm/Hg HCO3 25.0 (21-28) mmol/L ABG pH 7.38 (7.35-7.45) ABG Total CO2 26.7 (22-28) mmol/L ABG O2 Saturation 99.3 H (95-98) % ABG Base Excess 0.1 (-2.0-3.0) mmol/L ABG Hemoglobin 10.5 L (11.7-17.4) g/dL ABG Carboxyhemoglobin 2.4 H (0.5-1.5) % POC ABG HHb (Measured) 0.7 (0.0-5.0) % ABG Methemoglobin 1.2 (0.0-3.0) % Daljit Test Pos A-a O2 Difference 167.0 mm/Hg Respiratory Index 1.2 Hgb O2 Saturation 95.6 (95.0-98.0) % Vent Mode Prvc Mechanical Rate 20 FiO2 50.0 % Tidal Volume 450 PEEP 5 Sodium (132-148) mmol/L Potassium (3.6-5.2) mmol/L Chloride (98-107) mmol/L Carbon Dioxide (22-30) mmol/L Anion Gap (10-20) BUN (7-17) mg/dL Creatinine (0.7-1.2) mg/dL Est GFR ( Amer) Est GFR (Non-Af Amer) POC Glucose (mg/dL) (65-110) mg/dL Random Glucose (65-105) mg/dL Calcium (8.6-10.4) mg/dl Total Bilirubin (0.2-1.3) mg/dL AST (14-36) U/L ALT (9-52) U/L Alkaline Phosphatase (38-126) U/L Total Protein (6.3-8.3) g/dL Albumin (3.5-5.0) g/dL Globulin (2.2-3.9) gm/dL Albumin/Globulin Ratio (1.0-2.1) HIV 1&2 Antibody Screen Negative (NEGATIVE) 04/04/17 04/03/17 04/03/17 Range/Units 00:34 17:25 14:36 WBC (4.8-10.8) K/uL RBC (3.80-5.20) Mil/uL Hgb (11.0-16.0) g/dL Hct (34.0-47.0) % MCV (81.0-99.0) fL MCH (27.0-31.0) pg MCHC (33.0-37.0) g/dL RDW (11.5-14.5) % Plt Count (130-400) K/uL MPV (7.2-11.7) fL Neut % (Auto) (50.0-75.0) % Lymph % (Auto) (20.0-40.0) % [place] % (Auto) (0.0-10.0) % Eos % (Auto) (0.0-4.0) % Baso % (Auto) (0.0-2.0) % Neut # (1.8-7.0) K/uL Lymph # (1.0-4.3) K/uL [place] # (0.0-0.8) K/uL Eos # (0.0-0.7) K/uL Baso # (0.0-0.2) K/uL Neutrophils % (Manual) (50-75) % Lymphocytes % (Manual) (20-40) % Monocytes % (Manual) (0-10) % Platelet Estimate (NORMAL) Hypochromasia (manual) Poikilocytosis (manual Basophilic Stippling Anisocytosis (manual) [place] Cells ESR 55 H (0-20) mm/hr Puncture Site pCO2 (35-45) mm/Hg pO2 (80-100) mm/Hg HCO3 (21-28) mmol/L ABG pH (7.35-7.45) ABG Total CO2 (22-28) mmol/L ABG O2 Saturation (95-98) % ABG Base Excess (-2.0-3.0) mmol/L ABG Hemoglobin (11.7-17.4) g/dL ABG Carboxyhemoglobin (0.5-1.5) % POC ABG HHb (Measured) (0.0-5.0) % ABG Methemoglobin (0.0-3.0) % Daljit Test A-a O2 Difference mm/Hg Respiratory Index Hgb O2 Saturation (95.0-98.0) % Vent Mode Mechanical Rate FiO2 % Tidal Volume PEEP Sodium (132-148) mmol/L Potassium (3.6-5.2) mmol/L Chloride (98-107) mmol/L Carbon Dioxide (22-30) mmol/L Anion Gap (10-20) BUN (7-17) mg/dL Creatinine (0.7-1.2) mg/dL Est GFR ( Amer) Est GFR (Non-Af Amer) POC Glucose (mg/dL) 145 H 144 H (65-110) mg/dL Random Glucose (65-105) mg/dL Calcium (8.6-10.4) mg/dl Total Bilirubin (0.2-1.3) mg/dL AST (14-36) U/L ALT (9-52) U/L Alkaline Phosphatase (38-126) U/L Total Protein (6.3-8.3) g/dL Albumin (3.5-5.0) g/dL Globulin (2.2-3.9) gm/dL Albumin/Globulin Ratio (1.0-2.1) HIV 1&2 Antibody Screen (NEGATIVE) 04/03/17 Range/Units 11:52 WBC (4.8-10.8) K/uL RBC (3.80-5.20) Mil/uL Hgb (11.0-16.0) g/dL Hct (34.0-47.0) % MCV (81.0-99.0) fL MCH (27.0-31.0) pg MCHC (33.0-37.0) g/dL RDW (11.5-14.5) % Plt Count (130-400) K/uL MPV (7.2-11.7) fL Neut % (Auto) (50.0-75.0) % Lymph % (Auto) (20.0-40.0) % [place] % (Auto) (0.0-10.0) % Eos % (Auto) (0.0-4.0) % Baso % (Auto) (0.0-2.0) % Neut # (1.8-7.0) K/uL Lymph # (1.0-4.3) K/uL [place] # (0.0-0.8) K/uL Eos # (0.0-0.7) K/uL Baso # (0.0-0.2) K/uL Neutrophils % (Manual) (50-75) % Lymphocytes % (Manual) (20-40) % Monocytes % (Manual) (0-10) % Platelet Estimate (NORMAL) Hypochromasia (manual) Poikilocytosis (manual Basophilic Stippling Anisocytosis (manual) [place]a Cells ESR (0-20) mm/hr Puncture Site pCO2 (35-45) mm/Hg pO2 (80-100) mm/Hg HCO3 (21-28) mmol/L ABG pH (7.35-7.45) ABG Total CO2 (22-28) mmol/L ABG O2 Saturation (95-98) % ABG Base Excess (-2.0-3.0) mmol/L ABG Hemoglobin (11.7-17.4) g/dL ABG Carboxyhemoglobin (0.5-1.5) % POC ABG HHb (Measured) (0.0-5.0) % ABG Methemoglobin (0.0-3.0) % Daljit Test A-a O2 Difference mm/Hg Respiratory Index Hgb O2 Saturation (95.0-98.0) % Vent Mode Mechanical Rate FiO2 % Tidal Volume PEEP Sodium (132-148) mmol/L Potassium (3.6-5.2) mmol/L Chloride (98-107) mmol/L Carbon Dioxide (22-30) mmol/L Anion Gap (10-20) BUN (7-17) mg/dL Creatinine (0.7-1.2) mg/dL Est GFR ( Amer) Est GFR (Non-Af Amer) POC Glucose (mg/dL) 168 H (65-110) mg/dL Random Glucose (65-105) mg/dL Calcium (8.6-10.4) mg/dl Total Bilirubin (0.2-1.3) mg/dL AST (14-36) U/L ALT (9-52) U/L Alkaline Phosphatase (38-126) U/L Total Protein (6.3-8.3) g/dL Albumin (3.5-5.0) g/dL Globulin (2.2-3.9) gm/dL Albumin/Globulin Ratio (1.0-2.1) HIV 1&2 Antibody Screen (NEGATIVE) Laboratory Results - last 24 hr 04/03/17 04/03/17 04/03/17 11:52 14:36 17:25 WBC RBC Hgb Hct MCV MCH MCHC RDW Plt Count MPV Neut % (Auto) Lymph % (Auto) [place] % (Auto) Eos % (Auto) Baso % (Auto) Neut # Lymph # [place] # Eos # Baso # Neutrophils % (Manual) Lymphocytes % (Manual) Monocytes % (Manual) Platelet Estimate Hypochromasia (manual) Poikilocytosis (manual Basophilic Stippling Anisocytosis (manual) Daya Cells ESR 55 H Puncture Site pCO2 pO2 HCO3 ABG pH ABG Total CO2 ABG O2 Saturation ABG Base Excess ABG Hemoglobin ABG Carboxyhemoglobin POC ABG HHb (Measured) ABG Methemoglobin Daljit Test A-a O2 Difference Respiratory Index Hgb O2 Saturation Vent Mode Mechanical Rate FiO2 Tidal Volume PEEP Sodium Potassium Chloride Carbon Dioxide Anion Gap BUN Creatinine Est GFR ( Amer) Est GFR (Non-Af Amer) POC Glucose (mg/dL) 168 H 144 H Random Glucose Calcium Total Bilirubin AST ALT Alkaline Phosphatase Total Protein Albumin Globulin Albumin/Globulin Ratio HIV 1&2 Antibody Screen 04/04/17 04/04/17 04/04/17 00:34 05:02 06:24 WBC 9.4 RBC 3.46 L Hgb 10.3 L Hct 30.6 L MCV 88.3 MCH 29.8 MCHC 33.7 RDW 18.4 H Plt Count 15 L* MPV 9.9 Neut % (Auto) 90.0 H Lymph % (Auto) 2.0 L [place] % (Auto) 7.5 Eos % (Auto) 0.0 Baso % (Auto) 0.5 Neut # 8.5 H Lymph # 0.2 L Mck[place]ley # 0.7 Eos # 0.0 Baso # 0.0 Neutrophils % (Manual) 92 H Lymphocytes % (Manual) 4 L Monocytes % (Manual) 4 Platelet Estimate Markedly decreased L Hypochromasia (manual) Slight Poikilocytosis (manual Slight Basophilic Stippling Slight Anisocytosis (manual) Slight [place] Cells Slight ESR Puncture Site Rr pCO2 43 pO2 136 H HCO3 25.0 ABG pH 7.38 ABG Total CO2 26.7 ABG O2 Saturation 99.3 H ABG Base Excess 0.1 ABG Hemoglobin 10.5 L ABG Carboxyhemoglobin 2.4 H POC ABG HHb (Measured) 0.7 ABG Methemoglobin 1.2 Daljit Test Pos A-a O2 Difference 167.0 Respiratory Index 1.2 Hgb O2 Saturation 95.6 Vent Mode Prvc Mechanical Rate 20 FiO2 50.0 Tidal Volume 450 PEEP 5 Sodium Potassium Chloride Carbon Dioxide Anion Gap BUN Creatinine Est GFR ( Amer) Est GFR (Non-Af Amer) POC Glucose (mg/dL) 145 H Random Glucose Calcium Total Bilirubin AST ALT Alkaline Phosphatase Total Protein Albumin Globulin Albumin/Globulin Ratio HIV 1&2 Antibody Screen 04/04/17 04/04/17 04/04/17 06:25 06:25 06:25 WBC RBC Hgb Hct MCV MCH MCHC RDW Plt Count MPV Neut % (Auto) Lymph % (Auto) [place] % (Auto) Eos % (Auto) Baso % (Auto) Neut # Lymph # [place] # Eos # Baso # Neutrophils % (Manual) Lymphocytes % (Manual) Monocytes % (Manual) Platelet Estimate Hypochromasia (manual) Poikilocytosis (manual Basophilic Stippling Anisocytosis (manual) Daya Cells ESR 18 Puncture Site pCO2 pO2 HCO3 ABG pH ABG Total CO2 ABG O2 Saturation ABG Base Excess ABG Hemoglobin ABG Carboxyhemoglobin POC ABG HHb (Measured) ABG Methemoglobin Daljit Test A-a O2 Difference Respiratory Index Hgb O2 Saturation Vent Mode Mechanical Rate FiO2 Tidal Volume PEEP Sodium 136 Potassium 3.7 Chloride 108 H Carbon Dioxide 28 Anion Gap 4 L BUN 33 H Creatinine 0.4 L Est GFR ( Amer) > 60 Est GFR (Non-Af Amer) > 60 POC Glucose (mg/dL) Random Glucose 136 H Calcium 7.9 L Total Bilirubin 1.1 AST 61 H D ALT 77 H D Alkaline Phosphatase 241 H D Total Protein 4.5 L Albumin 1.8 L Globulin 2.7 Albumin/Globulin Ratio 0.7 L HIV 1&2 Antibody Screen Negative 04/04/17 06:34 WBC RBC Hgb Hct MCV MCH MCHC RDW Plt Count MPV Neut % (Auto) Lymph % (Auto) [place] % (Auto) Eos % (Auto) Baso % (Auto) Neut # Lymph # [place] # Eos # Baso # Neutrophils % (Manual) Lymphocytes % (Manual) Monocytes % (Manual) Platelet Estimate Hypochromasia (manual) Poikilocytosis (manual Basophilic Stippling Anisocytosis (manual) [place] Cells ESR Puncture Site pCO2 pO2 HCO3 ABG pH ABG Total CO2 ABG O2 Saturation ABG Base Excess ABG Hemoglobin ABG Carboxyhemoglobin POC ABG HHb (Measured) ABG Methemoglobin Daljit Test A-a O2 Difference Respiratory Index Hgb O2 Saturation Vent Mode Mechanical Rate FiO2 Tidal Volume PEEP Sodium Potassium Chloride Carbon Dioxide Anion Gap BUN Creatinine Est GFR ( Amer) Est GFR (Non-Af Amer) POC Glucose (mg/dL) 121 H Random Glucose Calcium Total Bilirubin AST ALT Alkaline Phosphatase Total Protein Albumin Globulin Albumin/Globulin Ratio HIV 1&2 Antibody Screen Fingerstick Blood Sugar Results: 145 Review of Systems - Review of Systems Systems not reviewed;Unavailable: Intubated Assessment/Plan - Assessment and Plan (Free Text) Plan: Neuro * Intubated/sedated with propofol drip * Neurology consulted (Steve) - recs appreciated * Gabapentin 400 mg PO BID Cardio * RRR * BP stable * 03/29: Troponin + (0.2650, 0.1570) * 03/29: Heparin drip discontinued * Plavix 75 mg PO QD (d/c 04/03) * Crestor 20 mg PO HS * Echo: grade 1 relaxation pattern and mild pulmonary hypertension * EKG: T Wave abnormality * BNP 59596 * UE and LE US - negative for DVT Respiratory * Intubated (27/08/49) * CTA: b/l interstitial/alveolar infiltrate with superimposed multifocal eder consolidation, dilated main pulmonary artery * ABG 7.38/43/136/25 * Solu-medrol 125 mg IV Q6 Renal * Balance +1725.6 * BUN/Cr 33/0.4 Fluids, electrolytes, nutrition * NG tube * Ca 7.9 * Albumin 1.8 Infectious disease * afebrile * WBC 9.4 * ID consulted (Cici) - recs appreciated * Sputum culture pending * Fluconazole 200 mg QD * 1g vanc Q12 * Aztreonam 1g IV Q8 * Doxy 100 IV Q12 * Mepron 1500 mg PO ACL * Flagyl 500 mg Q8 (end 04/03) * Tamiflu (end 04/04) Hematology * H&H: 10.3/30.6 * Plt: 15 * Plavix 75 mg PO QD (d/c 04/03) * Heparin drip discontinued * Heme/Onc consulted (Thuy) - recs appreciated * Bone marrow biopsy pending patient consent GI * AST/ALT: 61/77 - possibly med side effect, down trending * Tbili: 1.1 * Zofran PRN Endocrine * monitor blood glucose * HbA1c 4.7 * Solu-medrol 125 mg IV Q6 Integumentary * A&D ointment * Vaseline Rheumatology * Hydroxychloroquine 200 mg PO QD * Dr. Puckett consulted - recs appreciated Prophylaxis * Pepcid 20 mg PO BID <Chucky Astorga - Last Filed: 04/04/17 17:10> CCU Objective - Vital Signs / Intake & Output Vital Signs (Last 4 hours): Vital Signs Temp Pulse Resp BP Pulse Ox 04/04/17 17:00 73 20 111/76 100 04/04/17 16:00 99.0 F 80 20 111/65 99 04/04/17 15:01 78 20 105/68 100 04/04/17 15:00 77 20 100 04/04/17 14:00 85 9 L 126/79 97 Intake and Output (Last 8hrs): Intake & Output 04/04/17 04/04/17 04/04/17 06:59 14:59 22:59 Intake Total 520.0 920.0 157.5 Output Total 300 335 130 Balance 220.0 585.0 27.5 Weight 194 lb Intake: IV 100 200 Intake, IV Amount 100.0 400.0 37.5 Left Antecubital Mid-Line 100.0 100.0 37.5 #2 Left Antecubital Mid-line 100 Right Hand 200 Tube Feeding 320 320 120 Output: Urine 300 335 130 Urethral (Lewis) 300 335 130 Other: # Bowel Movements 1 - Medications Active Medications: Active Medications Generic Name Dose Route Start Last Admin Trade Name Freq PRN Reason Stop Dose Admin Acetaminophen 650 mg 03/31/17 12:52 Tylenol 325mg Tab PO Q6 PRN Pain, moderate (4-7) Albuterol/Ipratropium 3 ml 04/01/17 14:00 04/04/17 13:19 Duoneb 3 Mg/0.5 Mg (3 Ml) Ud INH 3 ml RQ6 IMAN Administration Atovaquone 1,500 mg 03/30/17 11:30 04/04/17 12:54 Mepron PO 1,500 mg ACL IMAN Administration Emollient Ointment 5 gm 03/31/17 12:18 04/02/17 09:25 Vaseline Oint TOP 5 gm Q4 PRN Administration DRY SKIN Gabapentin 400 mg 03/23/17 10:00 04/04/17 09:29 Neurontin PO 400 mg BID IMAN Administration Hydroxychloroquine Sulfate 200 mg 03/28/17 10:00 04/04/17 09:29 Plaquenil PO 200 mg DAILY IMAN Administration Doxycycline Hyclate 100 mg/ 100 mls @ 100 mls/hr 03/29/17 14:00 04/04/17 15: 05 Sodium Chloride IVPB 100 mls/hr Q12H IMAN Administration Fluconazole 100 mls @ 100 mls/hr 03/30/17 10:00 04/04/17 09:29 Diflucan Iv 200 Mg/100 Ml Ns IVPB 100 mls/hr DAILY IMAN Administration Aztreonam 1 gm/ Sodium 100 mls @ 100 mls/hr 03/30/17 10:30 04/04/17 10:02 Chloride IVPB 100 mls/hr Q8H IMAN Administration Propofol 1,000 mg in 100 mls @ 2.494 mls/hr 03/31/17 15:15 04/04/17 13:07 Diprivan IV 25 mcg/kg/min .Q24H PRN 12.471 mls/hr TITRATE PER MD ORDER Administration Protocol 5 MCG/KG/MIN Vancomycin HCl 1 gm/ Sodium 250 mls @ 133.333 mls/hr 04/01/17 21:30 04/02/17 20:29 Chloride IVPB 133.333 mls/hr Q12H IMAN Administration Methylprednisolone 125 mg 04/04/17 12:00 04/04/17 12:56 Solu-Medrol IV 125 mg Q6 IMAN Administration Ondansetron HCl 4 mg 03/20/17 15:00 03/20/17 15:01 Zofran Inj IVP 4 mg Q6H PRN Administration Nausea/Vomiting Rosuvastatin Calcium 20 mg 03/23/17 22:00 04/03/17 21:35 Crestor PO 20 mg HS IMAN Administration - Patient Studies Lab Studies: Microbiology Studies 04/02/17 Unknown Gram Stain - Final Trachasp Sputum Culture - Final No growth. Lab Studies 04/04/17 04/04/17 04/04/17 Range/Units 12:01 06:34 06:25 WBC (4.8-10.8) K/uL RBC (3.80-5.20) Mil/uL Hgb (11.0-16.0) g/dL Hct (34.0-47.0) % MCV (81.0-99.0) fL MCH (27.0-31.0) pg MCHC (33.0-37.0) g/dL RDW (11.5-14.5) % Plt Count (130-400) K/uL MPV (7.2-11.7) fL Neut % (Auto) (50.0-75.0) % Lymph % (Auto) (20.0-40.0) % [place] % (Auto) (0.0-10.0) % Eos % (Auto) (0.0-4.0) % Baso % (Auto) (0.0-2.0) % Neut # (1.8-7.0) K/uL Lymph # (1.0-4.3) K/uL Mck[place] # (0.0-0.8) K/uL Eos # (0.0-0.7) K/uL Baso # (0.0-0.2) K/uL Neutrophils % (Manual) (50-75) % Lymphocytes % (Manual) (20-40) % Monocytes % (Manual) (0-10) % Platelet Estimate (NORMAL) Hypochromasia (manual) Poikilocytosis (manual Basophilic Stippling Anisocytosis (manual) Daya Cells ESR (0-20) mm/hr Puncture Site pCO2 (35-45) mm/Hg pO2 (80-100) mm/Hg HCO3 (21-28) mmol/L ABG pH (7.35-7.45) ABG Total CO2 (22-28) mmol/L ABG O2 Saturation (95-98) % ABG Base Excess (-2.0-3.0) mmol/L ABG Hemoglobin (11.7-17.4) g/dL ABG Carboxyhemoglobin (0.5-1.5) % POC ABG HHb (Measured) (0.0-5.0) % ABG Methemoglobin (0.0-3.0) % Daljit Test A-a O2 Difference mm/Hg Respiratory Index Hgb O2 Saturation (95.0-98.0) % Vent Mode Mechanical Rate FiO2 % Tidal Volume PEEP Sodium 136 (132-148) mmol/L Potassium 3.7 (3.6-5.2) mmol/L Chloride 108 H (98-107) mmol/L Carbon Dioxide 28 (22-30) mmol/L Anion Gap 4 L (10-20) BUN 33 H (7-17) mg/dL Creatinine 0.4 L (0.7-1.2) mg/dL Est GFR ( Amer) > 60 Est GFR (Non-Af Amer) > 60 POC Glucose (mg/dL) 104 121 H (65-110) mg/dL Random Glucose 136 H (65-105) mg/dL Calcium 7.9 L (8.6-10.4) mg/dl Total Bilirubin 1.1 (0.2-1.3) mg/dL AST 61 H D (14-36) U/L ALT 77 H D (9-52) U/L Alkaline Phosphatase 241 H D (38-126) U/L Total Protein 4.5 L (6.3-8.3) g/dL Albumin 1.8 L (3.5-5.0) g/dL Globulin 2.7 (2.2-3.9) gm/dL Albumin/Globulin Ratio 0.7 L (1.0-2.1) HIV 1&2 Antibody Screen (NEGATIVE) 04/04/17 04/04/17 04/04/17 Range/Units 06:25 06:25 06:24 WBC 9.4 (4.8-10.8) K/uL RBC 3.46 L (3.80-5.20) Mil/uL Hgb 10.3 L (11.0-16.0) g/dL Hct 30.6 L (34.0-47.0) % MCV 88.3 (81.0-99.0) fL MCH 29.8 (27.0-31.0) pg MCHC 33.7 (33.0-37.0) g/dL RDW 18.4 H (11.5-14.5) % Plt Count 15 L* (130-400) K/uL MPV 9.9 (7.2-11.7) fL Neut % (Auto) 90.0 H (50.0-75.0) % Lymph % (Auto) 2.0 L (20.0-40.0) % Mckinley % (Auto) 7.5 (0.0-10.0) % Eos % (Auto) 0.0 (0.0-4.0) % Baso % (Auto) 0.5 (0.0-2.0) % Neut # 8.5 H (1.8-7.0) K/uL Lymph # 0.2 L (1.0-4.3) K/uL Mckinley # 0.7 (0.0-0.8) K/uL Eos # 0.0 (0.0-0.7) K/uL Baso # 0.0 (0.0-0.2) K/uL Neutrophils % (Manual) 92 H (50-75) % Lymphocytes % (Manual) 4 L (20-40) % Monocytes % (Manual) 4 (0-10) % Platelet Estimate Markedly decreased L (NORMAL) Hypochromasia (manual) Slight Poikilocytosis (manual Slight Basophilic Stippling Slight Anisocytosis (manual) Slight [place] Cells Slight ESR 18 (0-20) mm/hr Puncture Site pCO2 (35-45) mm/Hg pO2 (80-100) mm/Hg HCO3 (21-28) mmol/L ABG pH (7.35-7.45) ABG Total CO2 (22-28) mmol/L ABG O2 Saturation (95-98) % ABG Base Excess (-2.0-3.0) mmol/L ABG Hemoglobin (11.7-17.4) g/dL ABG Carboxyhemoglobin (0.5-1.5) % POC ABG HHb (Measured) (0.0-5.0) % ABG Methemoglobin (0.0-3.0) % Daljit Test A-a O2 Difference mm/Hg Respiratory Index Hgb O2 Saturation (95.0-98.0) % Vent Mode Mechanical Rate FiO2 % Tidal Volume PEEP Sodium (132-148) mmol/L Potassium (3.6-5.2) mmol/L Chloride (98-107) mmol/L Carbon Dioxide (22-30) mmol/L Anion Gap (10-20) BUN (7-17) mg/dL Creatinine (0.7-1.2) mg/dL Est GFR ( Amer) Est GFR (Non-Af Amer) POC Glucose (mg/dL) (65-110) mg/dL Random Glucose (65-105) mg/dL Calcium (8.6-10.4) mg/dl Total Bilirubin (0.2-1.3) mg/dL AST (14-36) U/L ALT (9-52) U/L Alkaline Phosphatase (38-126) U/L Total Protein (6.3-8.3) g/dL Albumin (3.5-5.0) g/dL Globulin (2.2-3.9) gm/dL Albumin/Globulin Ratio (1.0-2.1) HIV 1&2 Antibody Screen Negative (NEGATIVE) 04/04/17 04/04/17 04/03/17 Range/Units 05:02 00:34 17:25 WBC (4.8-10.8) K/uL RBC (3.80-5.20) Mil/uL Hgb (11.0-16.0) g/dL Hct (34.0-47.0) % MCV (81.0-99.0) fL MCH (27.0-31.0) pg MCHC (33.0-37.0) g/dL RDW (11.5-14.5) % Plt Count (130-400) K/uL MPV (7.2-11.7) fL Neut % (Auto) (50.0-75.0) % Lymph % (Auto) (20.0-40.0) % Mck[place] % (Auto) (0.0-10.0) % Eos % (Auto) (0.0-4.0) % Baso % (Auto) (0.0-2.0) % Neut # (1.8-7.0) K/uL Lymph # (1.0-4.3) K/uL Mck[place] # (0.0-0.8) K/uL Eos # (0.0-0.7) K/uL Baso # (0.0-0.2) K/uL Neutrophils % (Manual) (50-75) % Lymphocytes % (Manual) (20-40) % Monocytes % (Manual) (0-10) % Platelet Estimate (NORMAL) Hypochromasia (manual) Poikilocytosis (manual Basophilic Stippling Anisocytosis (manual) Daya Cells ESR (0-20) mm/hr Puncture Site Rr pCO2 43 (35-45) mm/Hg pO2 136 H (80-100) mm/Hg HCO3 25.0 (21-28) mmol/L ABG pH 7.38 (7.35-7.45) ABG Total CO2 26.7 (22-28) mmol/L ABG O2 Saturation 99.3 H (95-98) % ABG Base Excess 0.1 (-2.0-3.0) mmol/L ABG Hemoglobin 10.5 L (11.7-17.4) g/dL ABG Carboxyhemoglobin 2.4 H (0.5-1.5) % POC ABG HHb (Measured) 0.7 (0.0-5.0) % ABG Methemoglobin 1.2 (0.0-3.0) % Daljit Test Pos A-a O2 Difference 167.0 mm/Hg Respiratory Index 1.2 Hgb O2 Saturation 95.6 (95.0-98.0) % Vent Mode Prvc Mechanical Rate 20 FiO2 50.0 % Tidal Volume 450 PEEP 5 Sodium (132-148) mmol/L Potassium (3.6-5.2) mmol/L Chloride (98-107) mmol/L Carbon Dioxide (22-30) mmol/L Anion Gap (10-20) BUN (7-17) mg/dL Creatinine (0.7-1.2) mg/dL Est GFR ( Amer) Est GFR (Non-Af Amer) POC Glucose (mg/dL) 145 H 144 H (65-110) mg/dL Random Glucose (65-105) mg/dL Calcium (8.6-10.4) mg/dl Total Bilirubin (0.2-1.3) mg/dL AST (14-36) U/L ALT (9-52) U/L Alkaline Phosphatase (38-126) U/L Total Protein (6.3-8.3) g/dL Albumin (3.5-5.0) g/dL Globulin (2.2-3.9) gm/dL Albumin/Globulin Ratio (1.0-2.1) HIV 1&2 Antibody Screen (NEGATIVE) Laboratory Results - last 24 hr 04/03/17 04/04/17 04/04/17 17:25 00:34 05:02 WBC RBC Hgb Hct MCV MCH MCHC RDW Plt Count MPV Neut % (Auto) Lymph % (Auto) Mck[place] % (Auto) Eos % (Auto) Baso % (Auto) Neut # Lymph # Mck[place] # Eos # Baso # Neutrophils % (Manual) Lymphocytes % (Manual) Monocytes % (Manual) Platelet Estimate Hypochromasia (manual) Poikilocytosis (manual Basophilic Stippling Anisocytosis (manual) [place] Cells ESR Puncture Site Rr pCO2 43 pO2 136 H HCO3 25.0 ABG pH 7.38 ABG Total CO2 26.7 ABG O2 Saturation 99.3 H ABG Base Excess 0.1 ABG Hemoglobin 10.5 L ABG Carboxyhemoglobin 2.4 H POC ABG HHb (Measured) 0.7 ABG Methemoglobin 1.2 Daljit Test Pos A-a O2 Difference 167.0 Respiratory Index 1.2 Hgb O2 Saturation 95.6 Vent Mode Prvc Mechanical Rate 20 FiO2 50.0 Tidal Volume 450 PEEP 5 Sodium Potassium Chloride Carbon Dioxide Anion Gap BUN Creatinine Est GFR ( Amer) Est GFR (Non-Af Amer) POC Glucose (mg/dL) 144 H 145 H Random Glucose Calcium Total Bilirubin AST ALT Alkaline Phosphatase Total Protein Albumin Globulin Albumin/Globulin Ratio HIV 1&2 Antibody Screen 04/04/17 04/04/17 04/04/17 06:24 06:25 06:25 WBC 9.4 RBC 3.46 L Hgb 10.3 L Hct 30.6 L MCV 88.3 MCH 29.8 MCHC 33.7 RDW 18.4 H Plt Count 15 L* MPV 9.9 Neut % (Auto) 90.0 H Lymph % (Auto) 2.0 L Mckinley % (Auto) 7.5 Eos % (Auto) 0.0 Baso % (Auto) 0.5 Neut # 8.5 H Lymph # 0.2 L Mck[place]ley # 0.7 Eos # 0.0 Baso # 0.0 Neutrophils % (Manual) 92 H Lymphocytes % (Manual) 4 L Monocytes % (Manual) 4 Platelet Estimate Markedly decreased L Hypochromasia (manual) Slight Poikilocytosis (manual Slight Basophilic Stippling Slight Anisocytosis (manual) Slight [place] Cells Slight ESR 18 Puncture Site pCO2 pO2 HCO3 ABG pH ABG Total CO2 ABG O2 Saturation ABG Base Excess ABG Hemoglobin ABG Carboxyhemoglobin POC ABG HHb (Measured) ABG Methemoglobin Daljit Test A-a O2 Difference Respiratory Index Hgb O2 Saturation Vent Mode Mechanical Rate FiO2 Tidal Volume PEEP Sodium Potassium Chloride Carbon Dioxide Anion Gap BUN Creatinine Est GFR ( Amer) Est GFR (Non-Af Amer) POC Glucose (mg/dL) Random Glucose Calcium Total Bilirubin AST ALT Alkaline Phosphatase Total Protein Albumin Globulin Albumin/Globulin Ratio HIV 1&2 Antibody Screen Negative 04/04/17 04/04/17 04/04/17 06:25 06:34 12:01 WBC RBC Hgb Hct MCV MCH MCHC RDW Plt Count MPV Neut % (Auto) Lymph % (Auto) [place] % (Auto) Eos % (Auto) Baso % (Auto) Neut # Lymph # [place] # Eos # Baso # Neutrophils % (Manual) Lymphocytes % (Manual) Monocytes % (Manual) Platelet Estimate Hypochromasia (manual) Poikilocytosis (manual Basophilic Stippling Anisocytosis (manual) [place] Cells ESR Puncture Site pCO2 pO2 HCO3 ABG pH ABG Total CO2 ABG O2 Saturation ABG Base Excess ABG Hemoglobin ABG Carboxyhemoglobin POC ABG HHb (Measured) ABG Methemoglobin Daljit Test A-a O2 Difference Respiratory Index Hgb O2 Saturation Vent Mode Mechanical Rate FiO2 Tidal Volume PEEP Sodium 136 Potassium 3.7 Chloride 108 H Carbon Dioxide 28 Anion Gap 4 L BUN 33 H Creatinine 0.4 L Est GFR ( Amer) > 60 Est GFR (Non-Af Amer) > 60 POC Glucose (mg/dL) 121 H 104 Random Glucose 136 H Calcium 7.9 L Total Bilirubin 1.1 AST 61 H D ALT 77 H D Alkaline Phosphatase 241 H D Total Protein 4.5 L Albumin 1.8 L Globulin 2.7 Albumin/Globulin Ratio 0.7 L HIV 1&2 Antibody Screen Attending/Attestation - Attestation I have personally seen and examined this patient.: Yes I have fully participated in the care of the patient.: Yes I have reviewed all pertinent clinical information: Yes Notes (Text): 04/04/17 17:09 patient seen and examined. Case discussed with staff in the morning Patient remains intubated on ventilatory support FiO2 50% with improving chest x -ray Seen by hematology for thrombocytopenia status post bone marrow biopsy Bronchoscopy not indicated at this point because of thrombocytopenia and improving chest x-ray Continue antibiotics as per infectious disease Continue steroids Reduce FiO2 as tolerated Tolerating feeding
[2017-04-04] MEDS: Atovaquone 750 mg/5 ml Susp UD PO SCH (12:54)
--- NOTE | 2017-04-04 12:56 | CP.PCM.PN ---
Subjective - Date & Time of Evaluation Date of Evaluation: 04/04/17 Time of Evaluation: 12:20 - Subjective Subjective: Patient is currently on intubated and sedated at this time with propofol. This is my first time meeting patient. Reviewed previous notes Patient has an extensive medical history At this moment she was very breifly abusable, however overall unresponsive to stimuli. Objective - Vital Signs/Intake and Output Vital Signs (last 24 hours): Temp Pulse Resp BP Pulse Ox 97.1 F L 79 20 116/77 100 04/04/17 08:00 04/04/17 11:00 04/04/17 11:00 04/04/17 11:00 04/04/17 11:00 Intake and Output: 04/04/17 04/04/17 06:59 18:59 Intake Total 730.0 615.0 Output Total 420 165 Balance 310.0 450.0 - Medications Medications: Current Medications Acetaminophen (Tylenol 325mg Tab) 650 mg PO Q6 PRN PRN Reason: Pain, moderate (4-7) Albuterol/Ipratropium (Duoneb 3 Mg/0.5 Mg (3 Ml) Ud) 3 ml INH RQ6 [facility] Last Admin: 04/04/17 08:15 Dose: 3 ml Atovaquone (Mepron) 1,500 mg PO ACL [facility] Last Admin: 04/03/17 10:45 Dose: 1,500 mg Emollient Ointment (Vaseline Oint) 5 gm TOP Q4 PRN PRN Reason: DRY SKIN Last Admin: 04/02/17 09:25 Dose: 5 gm Gabapentin (Neurontin) 400 mg PO BID [facility] Last Admin: 04/04/17 09:29 Dose: 400 mg Hydroxychloroquine Sulfate (Plaquenil) 200 mg PO DAILY [facility] Last Admin: 04/04/17 09:29 Dose: 200 mg Doxycycline Hyclate 100 mg/ (Sodium Chloride) 100 mls @ 100 mls/hr IVPB Q12H [facility] Last Admin: 04/04/17 01:35 Dose: 100 mls/hr Fluconazole (Diflucan Iv 200 Mg/100 Ml Ns) 100 mls @ 100 mls/hr IVPB DAILY [facility] Last Admin: 04/04/17 09:29 Dose: 100 mls/hr Aztreonam 1 gm/ Sodium (Chloride) 100 mls @ 100 mls/hr IVPB Q8H [facility] Last Admin: 04/04/17 10:02 Dose: 100 mls/hr Propofol (Diprivan) 1,000 mg in 100 mls @ 2.494 mls/hr IV .Q24H PRN; Protocol; 5 MCG/KG/MIN PRN Reason: TITRATE PER MD ORDER Last Admin: 04/04/17 07:45 Dose: 25 mcg/kg/min, 12.471 mls/hr Vancomycin HCl 1 gm/ Sodium (Chloride) 250 mls @ 133.333 mls/hr IVPB Q12H [facility] Last Admin: 04/02/17 20:29 Dose: 133.333 mls/hr Methylprednisolone (Solu-Medrol) 125 mg IV Q6 [facility] Ondansetron HCl (Zofran Inj) 4 mg IVP Q6H PRN PRN Reason: Nausea/Vomiting Last Admin: 03/20/17 15:01 Dose: 4 mg Rosuvastatin Calcium (Crestor) 20 mg PO HS [facility] Last Admin: 04/03/17 21:35 Dose: 20 mg - Labs Labs: 04/04/17 06:24 04/04/17 06:25 PT 16.2 SECONDS (9.7-12.2) H 03/20/17 04:08 INR 1.4 03/20/17 04:08 APTT 38 SECONDS (21-34) H D 03/20/17 04:08 - Constitutional Appears: Cachectic, Chronically Ill - Head Exam Head Exam: NORMAL INSPECTION, NORMOCEPHALIC - Eye Exam Eye Exam: Normal appearance - ENT Exam ENT Exam: Mucous Membranes Moist - Cardiovascular Exam Cardiovascular Exam: REGULAR RHYTHM - GI/Abdominal Exam GI & Abdominal Exam: Soft. absent: Tenderness - Neurological Exam Neurological Exam: absent: Awake, Oriented x3 Neuro motor strength exam: Left Upper Extremity: 0, Right Upper Extremity: 0, Left Lower Extremity: 0, Right Lower Extremity: 0 Additional comments: On propofol - Skin Skin Exam: Normal Color, Warm Assessment and Plan - Assessment and Plan (Free Text) Assessment: Assessment and Plan (1) Acute respiratory failure Assessment & Plan: 04/04: Remains intubated at this time and on sedation. The CXRAY this AM appeared to have some improvment when compared to previous. Patient was intubated 03/31 given respiratory distress. 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 Possible bronchscopy or broncholavag r/o infection. Patient is thrombocytopenia. Plavix discontinued today. I discussed with neurology prior to discontinuation given worsening thrombocytopenia and consideration for bronch. He does not agree with abnormal brain MRI given patient does not clinically present with symptoms. I was endorsed by PMD, He did have a discussion with family about VATS with Dr. Aquino, CT surgery, however decision not made by family. Mepron 1500mg PO ACL (cover for PCP in light of immunosuppression from lupus therapy) Fluconazole 200mg IVPB daily (since 03/30) Aztreonam 1 gram IVPB Q8H (since 03/30) Doxycycline 100mg IVQ12H (since 03/29) Tamiflu 75mg PO BID (03/30-04/04) Influenza: negative Legionella: negative Mycoplasma IgM: negative ASO: negative Will check HIV given patient is on nursing home suppression therapy prior for lupus. Status: Acute (2) Pneumonitis Assessment & Plan: secondary to lupus likely. 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 Pillai 04/02 Hematology: Dr. Olivia Daley on the case help appreciated Direct kimo negative low retic index; hypoproliferative erythroid response unlikely acute hemolysis anemia of chronic disease immunosuppression contribution on marrow Status: Chronic (6) Thrombocytopenia Assessment & Plan: 04/04: Platelet count again slightly decreased to 15K. Currently off of Plavix if counts do not rebound, will need bone marrow evaluation per heme-onc when clinically stable per latest heme-onc note 04/03-->Discussed with Dr. Garibay, in light of worsening thrombocytopenia, discontinue Plavix. Patient had been on Plavix for abnormal brain MRI previously. 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 Neurology last noted from , neurologically stable. C/w Neurotin 400mg PO BID with PT and DVT ppX Workup: MRI of brain as acute to subacute process of infarct in mid pontine region, does not show clinical picture suggestive of ischemic process affecting pontine region. possible artifactual. Normal EEG. 03/22 Lumbar spine MRI- Multilevel degenerative spondylosis most significantly affecting the L3-L4 and L2-L3 levels and to a lesser degree L4-L5 levels. 03/22 Thoracic spine MRI- moderate to fairly significant degenerative spondylosis of the cervical spine seen on the sagittal counting sequence with the moderate canal stenosis as well as a cord compression most significant at at the C4-C5 and C5-C6 levels. Dr Olsen (spinal audio visual specialist) for evaluation of MRI and recommendation , help appreciated- Dr Olsen saw and examined patient. 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 Medellin (cardiolology) was consulted. Likely demand ischemia. Previous echocardiogram reveals normal left ventricular function. The patient is currently asymptomatic. If normalizes can consider d/c heparin. add antiplatelet therapy. (12) CHF (congestive heart failure) Assessment & Plan: suspecting diastolic heart failure anticoagulation contraindicated secondary to thrombocytopenia Crestor 20mg POHS off antihypertensive therapy (blood pressure is normal limits) Echocardiogram: left ventricle systolic function is normal/ EF: 75%. Abnormal relaxation pattern. Mild pulm hypertension. (13) Disorder of electrolytes Assessment & Plan: repleted (14) Prophylactic measure Assessment & Plan: Anticoagulation contraindicated secondary to thrombocytopenia d/c Plavix, discussed with Dr. garibay in light of worsening thrombocytopenia
--- NOTE | 2017-04-04 17:21 | CP.PCM.PN ---
Subjective - Date & Time of Evaluation Date of Evaluation: 04/04/17 Time of Evaluation: 08:00 - Subjective Subjective: events noted iv rx in progress Objective - Vital Signs/Intake and Output Vital Signs (last 24 hours): Temp Pulse Resp BP Pulse Ox 99.0 F 73 20 111/76 100 04/04/17 16:00 04/04/17 17:00 04/04/17 17:00 04/04/17 17:00 04/04/17 17:00 Intake and Output: 04/04/17 04/04/17 06:59 18:59 Intake Total 730.0 1077.5 Output Total 420 465 Balance 310.0 612.5 - Medications Medications: Current Medications Acetaminophen (Tylenol 325mg Tab) 650 mg PO Q6 PRN PRN Reason: Pain, moderate (4-7) Albuterol/Ipratropium (Duoneb 3 Mg/0.5 Mg (3 Ml) Ud) 3 ml INH RQ6 [facility] Last Admin: 04/04/17 13:19 Dose: 3 ml Atovaquone (Mepron) 1,500 mg PO ACL [facility] Last Admin: 04/04/17 12:54 Dose: 1,500 mg Emollient Ointment (Vaseline Oint) 5 gm TOP Q4 PRN PRN Reason: DRY SKIN Last Admin: 04/02/17 09:25 Dose: 5 gm Gabapentin (Neurontin) 400 mg PO BID [facility] Last Admin: 04/04/17 09:29 Dose: 400 mg Hydroxychloroquine Sulfate (Plaquenil) 200 mg PO DAILY [facility] Last Admin: 04/04/17 09:29 Dose: 200 mg Doxycycline Hyclate 100 mg/ (Sodium Chloride) 100 mls @ 100 mls/hr IVPB Q12H [facility] Last Admin: 04/04/17 15:05 Dose: 100 mls/hr Fluconazole (Diflucan Iv 200 Mg/100 Ml Ns) 100 mls @ 100 mls/hr IVPB DAILY [facility] Last Admin: 04/04/17 09:29 Dose: 100 mls/hr Aztreonam 1 gm/ Sodium (Chloride) 100 mls @ 100 mls/hr IVPB Q8H [facility] Last Admin: 04/04/17 10:02 Dose: 100 mls/hr Propofol (Diprivan) 1,000 mg in 100 mls @ 2.494 mls/hr IV .Q24H PRN; Protocol; 5 MCG/KG/MIN PRN Reason: TITRATE PER MD ORDER Last Admin: 04/04/17 13:07 Dose: 25 mcg/kg/min, 12.471 mls/hr Vancomycin HCl 1 gm/ Sodium (Chloride) 250 mls @ 133.333 mls/hr IVPB Q12H [facility] Last Admin: 04/02/17 20:29 Dose: 133.333 mls/hr Methylprednisolone (Solu-Medrol) 125 mg IV Q6 [facility] Last Admin: 04/04/17 12:56 Dose: 125 mg Ondansetron HCl (Zofran Inj) 4 mg IVP Q6H PRN PRN Reason: Nausea/Vomiting Last Admin: 03/20/17 15:01 Dose: 4 mg Rosuvastatin Calcium (Crestor) 20 mg PO HS [facility] Last Admin: 04/03/17 21:35 Dose: 20 mg - Labs Labs: 04/04/17 06:24 04/04/17 06:25 PT 16.2 SECONDS (9.7-12.2) H 03/20/17 04:08 INR 1.4 03/20/17 04:08 APTT 38 SECONDS (21-34) H D 03/20/17 04:08 - Constitutional Appears: Chronically Ill - Head Exam Head Exam: NORMOCEPHALIC - Eye Exam Eye Exam: absent: Scleral icterus - ENT Exam ENT Exam: Mucous Membranes Dry - Neck Exam Neck Exam: absent: Lymphadenopathy - Respiratory Exam Respiratory Exam: Decreased Breath Sounds - Cardiovascular Exam Cardiovascular Exam: REGULAR RHYTHM - GI/Abdominal Exam GI & Abdominal Exam: Distended Assessment and Plan (1) Anemia Status: Acute (2) CHF (congestive heart failure) Status: Chronic (3) Coagulopathy Status: Acute (4) Fever Status: Acute (5) Hypoglycemia Status: Acute (6) Leg pain, bilateral Status: Acute (7) Sepsis Status: Acute (8) Thrombocytopenia Status: Acute
--- NOTE | 2017-04-04 19:46 | CP.PCM.PN ---
Subjective - Date & Time of Evaluation Date of Evaluation: 04/04/17 Time of Evaluation: 16:30 - Subjective Subjective: Bone marrow aspiration and biopsy procedure - Time-out was called to confirm: patients name and date of , procedure, side and site of biopsy, safety procedures followed. - Performed by: self. - Informed consent: Obtained over the phone by next of kin Raymond Awad (Son) - Aspiration and biopsy site: [Right] superior posterior iliac crest. - Patient position: [left lateral decubitus] - Preparation and technique: sterile preparation of site with [place], Chloraprep, draped to expose aspirate/biopsy area, local anesthesia with 1% lidocaine (approximately 10ml), frequent pressure application on incision to maintain hemostasis. - Tissue obtained: bone marrow aspirate and biopsy were successfully obtained in sterile manner. - Toleration of procedure and any complications: slight localized bleeding (<1ml ). Patient tolerated procedure well with minimal pain. Objective - Vital Signs/Intake and Output Vital Signs (last 24 hours): Temp Pulse Resp BP Pulse Ox 99.0 F 81 20 117/77 100 04/04/17 16:00 04/04/17 19:00 04/04/17 19:00 04/04/17 19:00 04/04/17 19:00 Intake and Output: 04/04/17 04/05/17 18:59 06:59 Intake Total 1230.0 52.5 Output Total 505 Balance 725.0 52.5 - Medications Medications: Current Medications Acetaminophen (Tylenol 325mg Tab) 650 mg PO Q6 PRN PRN Reason: Pain, moderate (4-7) Albuterol/Ipratropium (Duoneb 3 Mg/0.5 Mg (3 Ml) Ud) 3 ml INH RQ6 [facility] Last Admin: 04/04/17 13:19 Dose: 3 ml Atovaquone (Mepron) 1,500 mg PO ACL [facility] Last Admin: 04/04/17 12:54 Dose: 1,500 mg Emollient Ointment (Vaseline Oint) 5 gm TOP Q4 PRN PRN Reason: DRY SKIN Last Admin: 04/02/17 09:25 Dose: 5 gm Gabapentin (Neurontin) 400 mg PO BID [facility] Last Admin: 04/04/17 17:33 Dose: 400 mg Hydroxychloroquine Sulfate (Plaquenil) 200 mg PO DAILY [facility] Last Admin: 04/04/17 09:29 Dose: 200 mg Doxycycline Hyclate 100 mg/ (Sodium Chloride) 100 mls @ 100 mls/hr IVPB Q12H [facility] Last Admin: 04/04/17 15:05 Dose: 100 mls/hr Fluconazole (Diflucan Iv 200 Mg/100 Ml Ns) 100 mls @ 100 mls/hr IVPB DAILY [facility] Last Admin: 04/04/17 09:29 Dose: 100 mls/hr Aztreonam 1 gm/ Sodium (Chloride) 100 mls @ 100 mls/hr IVPB Q8H [facility] Last Admin: 04/04/17 17:33 Dose: 100 mls/hr Propofol (Diprivan) 1,000 mg in 100 mls @ 2.494 mls/hr IV .Q24H PRN; Protocol; 5 MCG/KG/MIN PRN Reason: TITRATE PER MD ORDER Last Admin: 04/04/17 13:07 Dose: 25 mcg/kg/min, 12.471 mls/hr Vancomycin HCl 1 gm/ Sodium (Chloride) 250 mls @ 133.333 mls/hr IVPB Q12H [facility] Last Admin: 04/02/17 20:29 Dose: 133.333 mls/hr Methylprednisolone (Solu-Medrol) 125 mg IV Q6 [facility] Last Admin: 04/04/17 17:33 Dose: 125 mg Ondansetron HCl (Zofran Inj) 4 mg IVP Q6H PRN PRN Reason: Nausea/Vomiting Last Admin: 03/20/17 15:01 Dose: 4 mg Rosuvastatin Calcium (Crestor) 20 mg PO HS [facility] Last Admin: 04/03/17 21:35 Dose: 20 mg - Labs Labs: 04/04/17 06:24 04/04/17 06:25 PT 16.2 SECONDS (9.7-12.2) H 03/20/17 04:08 INR 1.4 03/20/17 04:08 APTT 38 SECONDS (21-34) H D 03/20/17 04:08 - Head Exam Head Exam: ATRAUMATIC - Eye Exam Eye Exam: Normal appearance - ENT Exam ENT Exam: Mucous Membranes Dry - Respiratory Exam Respiratory Exam: NORMAL BREATHING PATTERN - Cardiovascular Exam Cardiovascular Exam: +S1, +S2 - GI/Abdominal Exam GI & Abdominal Exam: Normal Bowel Sounds Assessment and Plan (1) Thrombocytopenia Assessment & Plan: s/p bone marrow evaluation f/u results suspect immune mediated on steroids Status: Acute (2) Anemia Status: Acute (3) Coagulopathy Status: Acute
--- NOTE | 2017-04-04 22:31 | CARD ---
APPROVED REPORT EKG Measurement Heart [id number] <Conclusion> Sinus tachycardia Right atrial enlargement T wave abnormality, consider anterior ischemia Abnormal ECG
--- NOTE | 2017-04-04 22:43 | CARD ---
APPROVED REPORT EKG Measurement Heart [id number] <Conclusion> Sinus tachycardia Possible Left atrial enlargement T wave abnormality, consider anterior ischemia Abnormal ECG
[2017-04-05] MEDS: Albuterol-Ipratrop 3 mg / 0.5 (3 ml) UD INH SCH ×4 (01:33→20:19)
[2017-04-05] MEDS: Aztreonam 1 GM in Sodium Chloride 0.9% 100 ML IVPB SCH ×3 (01:35→17:54)
[2017-04-05 06:05] LABS: ABG ALLEN TEST POS; ARTERIAL BLOOD GAS HCO3 29.6 mmol/L (21-28); ARTERIAL BLOOD GAS O2 SAT 99.9 % (95-98); ARTERIAL BLOOD GAS PCO2 39 mm/Hg (35-45); ARTERIAL BLOOD GAS PH 7.49 (7.35-7.45); ARTERIAL BLOOD GAS PO2 173 mm/Hg (80-100); ARTERIAL BLOOD GAS TCO2 30.9 mmol/L (22-28)
[2017-04-05] MEDS: Propofol 10 mg/ml 1,000 MG/100 ML VIAL IV PRN (06:30)
[2017-04-05 06:33] LABS: BASO # 0.1 K/uL (0.0-0.2); BASO % 0.7 % (0.0-2.0); EOS % 0.1 % (0.0-4.0); HEMOGLOBIN 9.5 g/dL (11.0-16.0); LYMPH # 1.3 K/uL (1.0-4.3); MEAN CELL VOLUME 88.7 fL (81.0-99.0); MEAN CORPUSCULAR HEMOGLOBIN 29.1 pg (27.0-31.0); MEAN CORPUSCULAR HGB CONC 32.8 g/dL (33.0-37.0); MEAN PLATELET VOLUME 11.2 fL (7.2-11.7); MONO # 0.6 K/uL (0.0-0.8); MONO % 6.7 % (0.0-10.0); NEUT # 7.5 K/uL (1.8-7.0); NEUT % 78.5 % (50.0-75.0); NRBC % 0.1 % (0.0-2.0); RBC 3.27 Mil/uL (3.80-5.20); RED CELL DISTRIBUTION WIDTH 18.7 % (11.5-14.5); WHITE BLOOD COUNT 9.5 K/uL (4.8-10.8)
[2017-04-05 07:00] LABS: ALB/GLOB RATIO 0.8 (1.0-2.1); ALBUMIN 1.8 g/dL (3.5-5.0); ALT/SGPT 82 U/L (9-52); AST/SGOT 68 U/L (14-36); BLOOD UREA NITROGEN 31 mg/dL (7-17); CALCIUM 8.2 mg/dl (8.6-10.4); GFR AFRICAN-AMERICAN > 60; GFR NON-AFRICAN AMERICAN > 60; MAGNESIUM 1.9 mg/dL (1.6-2.3)
--- NOTE | 2017-04-05 07:38 | CP.CCUPN ---
<Thais Luz - Last Filed: 04/05/17 10:33> CCU Subjective - Physician Review Subjective (Free Text): 04/05/17 07:35 Patient seen and examined at bedside. Patient intubated/sedated. ROS unattainable. No acute events overnight. CCU Objective - Vital Signs / Intake & Output Vital Signs (Last 4 hours): Vital Signs Temp Pulse Resp BP Pulse Ox 04/05/17 07:01 62 20 97/61 L 100 04/05/17 07:00 61 20 100 04/05/17 06:00 73 20 113/72 100 04/05/17 05:01 79 15 112/73 100 04/05/17 05:00 83 14 100 04/05/17 04:00 97.7 F 79 20 121/75 100 Intake and Output (Last 8hrs): Intake & Output 04/04/17 04/05/17 04/05/17 22:59 06:59 14:59 Intake Total 532.5 520.0 62.5 Output Total 310 405 Balance 222.5 115.0 62.5 Weight 192 lb Intake: IV 12.5 100 Intake, IV Amount 200.0 100.0 12.5 Left Antecubital Mid-Line 100.0 100.0 12.5 #2 Left Antecubital Mid-line 100 Tube Feeding 320 320 50 Output: Urine 310 405 Urethral (Lewis) 310 405 - Physical Exam Head: Positive for: Atraumatic, Normocephalic Pupils: Positive for: PERRL Conjunctiva: Positive for: Normal Mouth: Positive for: Other (ET Tube in place ) Neck: Positive for: Normal Range of Motion Respiratory/Chest: Positive for: Rales, Other (Vent 20/5/50). Negative for: Wheezes, Rhonchi Cardiovascular: Positive for: Regular Rate and Rhythm, Normal S1, S2. Negative for: Tachycardic, Bradycardic Abdomen: Negative for: Distention, Peritoneal Signs Upper Extremity: Positive for: Normal Inspection Lower Extremity: Positive for: Edema. Negative for: Tenderness Neurological: Positive for: Speech Normal, Other (GCS=10t) Skin: Positive for: Warm, Dry. Negative for: Rashes Psychiatric: Positive for: Alert, Oriented x 3, Normal Insight, Normal Concentration - Medications Active Medications: Active Medications Generic Name Dose Route Start Last Admin Trade Name Freq PRN Reason Stop Dose Admin Acetaminophen 650 mg 03/31/17 12:52 Tylenol 325mg Tab PO Q6 PRN Pain, moderate (4-7) Albuterol/Ipratropium 3 ml 04/01/17 14:00 04/05/17 01:33 Duoneb 3 Mg/0.5 Mg (3 Ml) Ud INH 3 ml RQ6 IMAN Administration Atovaquone 1,500 mg 03/30/17 11:30 04/04/17 12:54 Mepron PO 1,500 mg ACL IMAN Administration Emollient Ointment 5 gm 03/31/17 12:18 04/02/17 09:25 Vaseline Oint TOP 5 gm Q4 PRN Administration DRY SKIN Gabapentin 400 mg 03/23/17 10:00 04/04/17 17:33 Neurontin PO 400 mg BID IMAN Administration Hydroxychloroquine Sulfate 200 mg 03/28/17 10:00 04/04/17 09:29 Plaquenil PO 200 mg DAILY IMAN Administration Doxycycline Hyclate 100 mg/ 100 mls @ 100 mls/hr 03/29/17 14:00 04/05/17 01: 17 Sodium Chloride IVPB 100 mls/hr Q12H IMAN Administration Fluconazole 100 mls @ 100 mls/hr 03/30/17 10:00 04/04/17 09:29 Diflucan Iv 200 Mg/100 Ml Ns IVPB 100 mls/hr DAILY IMAN Administration Aztreonam 1 gm/ Sodium 100 mls @ 100 mls/hr 03/30/17 10:30 04/05/17 01:35 Chloride IVPB 100 mls/hr Q8H IMAN Administration Propofol 1,000 mg in 100 mls @ 2.494 mls/hr 03/31/17 15:15 04/05/17 06:30 Diprivan IV 25 mcg/kg/min .Q24H PRN 12.471 mls/hr TITRATE PER MD ORDER Administration Protocol 5 MCG/KG/MIN Vancomycin HCl 1 gm/ Sodium 250 mls @ 133.333 mls/hr 04/01/17 21:30 04/02/17 20:29 Chloride IVPB 133.333 mls/hr Q12H IMAN Administration Methylprednisolone 125 mg 04/04/17 12:00 04/05/17 06:30 Solu-Medrol IV 125 mg Q6 IMAN Administration Ondansetron HCl 4 mg 03/20/17 15:00 03/20/17 15:01 Zofran Inj IVP 4 mg Q6H PRN Administration Nausea/Vomiting Rosuvastatin Calcium 20 mg 03/23/17 22:00 04/04/17 22:06 Crestor PO 20 mg HS IMAN Administration - Patient Studies Lab Studies: Microbiology Studies 04/02/17 Unknown Gram Stain - Final Trachasp Sputum Culture - Final No growth. Lab Studies 04/05/17 04/05/17 04/05/17 Range/Units 06:23 06:23 06:20 WBC 9.5 (4.8-10.8) K/uL RBC 3.27 L (3.80-5.20) Mil/uL Hgb 9.5 L (11.0-16.0) g/dL Hct 29.1 L (34.0-47.0) % MCV 88.7 (81.0-99.0) fL MCH 29.1 (27.0-31.0) pg MCHC 32.8 L (33.0-37.0) g/dL RDW 18.7 H (11.5-14.5) % Plt Count 9 L* D (130-400) K/uL MPV 11.2 (7.2-11.7) fL Neut % (Auto) 78.5 H (50.0-75.0) % Lymph % (Auto) 14.0 L (20.0-40.0) % [place] % (Auto) 6.7 (0.0-10.0) % Eos % (Auto) 0.1 (0.0-4.0) % Baso % (Auto) 0.7 (0.0-2.0) % Neut # 7.5 H (1.8-7.0) K/uL Lymph # 1.3 (1.0-4.3) K/uL [place] # 0.6 (0.0-0.8) K/uL Eos # 0.0 (0.0-0.7) K/uL Baso # 0.1 (0.0-0.2) K/uL Neutrophils % (Manual) (50-75) % Lymphocytes % (Manual) (20-40) % Monocytes % (Manual) (0-10) % Platelet Estimate (NORMAL) Hypochromasia (manual) Poikilocytosis (manual Basophilic Stippling Anisocytosis (manual) Daya Cells ESR (0-20) mm/hr Puncture Site pCO2 (35-45) mm/Hg pO2 (80-100) mm/Hg HCO3 (21-28) mmol/L ABG pH (7.35-7.45) ABG Total CO2 (22-28) mmol/L ABG O2 Saturation (95-98) % ABG Base Excess (-2.0-3.0) mmol/L ABG Hemoglobin (11.7-17.4) g/dL ABG Carboxyhemoglobin (0.5-1.5) % POC ABG HHb (Measured) (0.0-5.0) % ABG Methemoglobin (0.0-3.0) % Daljit Test A-a O2 Difference mm/Hg Respiratory Index Hgb O2 Saturation (95.0-98.0) % Vent Mode Mechanical Rate FiO2 % Tidal Volume PEEP Crit Value Called To Crit Value Called By Crit Value Read Back Blood Gas Notified Time Sodium 137 (132-148) mmol/L Potassium 3.9 (3.6-5.2) mmol/L Chloride 109 H (98-107) mmol/L Carbon Dioxide 27 (22-30) mmol/L Anion Gap 5 L (10-20) BUN 31 H (7-17) mg/dL Creatinine 0.3 L (0.7-1.2) mg/dL Est GFR ( Amer) > 60 Est GFR (Non-Af Amer) > 60 POC Glucose (mg/dL) 115 H (65-110) mg/dL Random Glucose 117 H (65-105) mg/dL Calcium 8.2 L (8.6-10.4) mg/dl Phosphorus 2.8 (2.5-4.5) mg/dL Magnesium 1.9 (1.6-2.3) mg/dL Total Bilirubin 1.1 (0.2-1.3) mg/dL AST 68 H (14-36) U/L ALT 82 H (9-52) U/L Alkaline Phosphatase 232 H (38-126) U/L Total Protein 4.1 L (6.3-8.3) g/dL Albumin 1.8 L (3.5-5.0) g/dL Globulin 2.3 (2.2-3.9) gm/dL Albumin/Globulin Ratio 0.8 L (1.0-2.1) 04/05/17 04/05/17 04/04/17 Range/Units 05:00 00:37 17:32 WBC (4.8-10.8) K/uL RBC (3.80-5.20) Mil/uL Hgb (11.0-16.0) g/dL Hct (34.0-47.0) % MCV (81.0-99.0) fL MCH (27.0-31.0) pg MCHC (33.0-37.0) g/dL RDW (11.5-14.5) % Plt Count (130-400) K/uL MPV (7.2-11.7) fL Neut % (Auto) (50.0-75.0) % Lymph % (Auto) (20.0-40.0) % [place] % (Auto) (0.0-10.0) % Eos % (Auto) (0.0-4.0) % Baso % (Auto) (0.0-2.0) % Neut # (1.8-7.0) K/uL Lymph # (1.0-4.3) K/uL [place] # (0.0-0.8) K/uL Eos # (0.0-0.7) K/uL Baso # (0.0-0.2) K/uL Neutrophils % (Manual) (50-75) % Lymphocytes % (Manual) (20-40) % Monocytes % (Manual) (0-10) % Platelet Estimate (NORMAL) Hypochromasia (manual) Poikilocytosis (manual Basophilic Stippling Anisocytosis (manual) Daya Cells ESR (0-20) mm/hr Puncture Site Rt radial pCO2 39 (35-45) mm/Hg pO2 173 H (80-100) mm/Hg HCO3 29.6 H (21-28) mmol/L ABG pH 7.49 H (7.35-7.45) ABG Total CO2 30.9 H (22-28) mmol/L ABG O2 Saturation 99.9 H (95-98) % ABG Base Excess 5.9 H (-2.0-3.0) mmol/L ABG Hemoglobin 8.0 L (11.7-17.4) g/dL ABG Carboxyhemoglobin 2.2 H (0.5-1.5) % POC ABG HHb (Measured) 0.1 (0.0-5.0) % ABG Methemoglobin 0.8 (0.0-3.0) % Daljit Test Pos A-a O2 Difference 135.0 mm/Hg Respiratory Index 0.8 Hgb O2 Saturation 96.8 (95.0-98.0) % Vent Mode Prvc Mechanical Rate 20 FiO2 50.0 % Tidal Volume 450 PEEP 5 Crit Value Called To Md ernestine sosa Crit Value Called By R alert liquor commissioner Crit Value Read Back Y Blood Gas Notified Time 615 Sodium (132-148) mmol/L Potassium (3.6-5.2) mmol/L Chloride (98-107) mmol/L Carbon Dioxide (22-30) mmol/L Anion Gap (10-20) BUN (7-17) mg/dL Creatinine (0.7-1.2) mg/dL Est GFR ( Amer) Est GFR (Non-Af Amer) POC Glucose (mg/dL) 152 H 117 H (65-110) mg/dL Random Glucose (65-105) mg/dL Calcium (8.6-10.4) mg/dl Phosphorus (2.5-4.5) mg/dL Magnesium (1.6-2.3) mg/dL Total Bilirubin (0.2-1.3) mg/dL AST (14-36) U/L ALT (9-52) U/L Alkaline Phosphatase (38-126) U/L Total Protein (6.3-8.3) g/dL Albumin (3.5-5.0) g/dL Globulin (2.2-3.9) gm/dL Albumin/Globulin Ratio (1.0-2.1) 04/04/17 04/04/17 04/04/17 Range/Units 12:01 06:25 06:24 WBC (4.8-10.8) K/uL RBC (3.80-5.20) Mil/uL Hgb (11.0-16.0) g/dL Hct (34.0-47.0) % MCV (81.0-99.0) fL MCH (27.0-31.0) pg MCHC (33.0-37.0) g/dL RDW (11.5-14.5) % Plt Count (130-400) K/uL MPV (7.2-11.7) fL Neut % (Auto) (50.0-75.0) % Lymph % (Auto) (20.0-40.0) % [place] % (Auto) (0.0-10.0) % Eos % (Auto) (0.0-4.0) % Baso % (Auto) (0.0-2.0) % Neut # (1.8-7.0) K/uL Lymph # (1.0-4.3) K/uL [place] # (0.0-0.8) K/uL Eos # (0.0-0.7) K/uL Baso # (0.0-0.2) K/uL Neutrophils % (Manual) 92 H (50-75) % Lymphocytes % (Manual) 4 L (20-40) % Monocytes % (Manual) 4 (0-10) % Platelet Estimate Markedly decreased L (NORMAL) Hypochromasia (manual) Slight Poikilocytosis (manual Slight Basophilic Stippling Slight Anisocytosis (manual) Slight [place] Cells Slight ESR 18 (0-20) mm/hr Puncture Site pCO2 (35-45) mm/Hg pO2 (80-100) mm/Hg HCO3 (21-28) mmol/L ABG pH (7.35-7.45) ABG Total CO2 (22-28) mmol/L ABG O2 Saturation (95-98) % ABG Base Excess (-2.0-3.0) mmol/L ABG Hemoglobin (11.7-17.4) g/dL ABG Carboxyhemoglobin (0.5-1.5) % POC ABG HHb (Measured) (0.0-5.0) % ABG Methemoglobin (0.0-3.0) % Daljit Test A-a O2 Difference mm/Hg Respiratory Index Hgb O2 Saturation (95.0-98.0) % Vent Mode Mechanical Rate FiO2 % Tidal Volume PEEP Crit Value Called To Crit Value Called By Crit Value Read Back Blood Gas Notified Time Sodium (132-148) mmol/L Potassium (3.6-5.2) mmol/L Chloride (98-107) mmol/L Carbon Dioxide (22-30) mmol/L Anion Gap (10-20) BUN (7-17) mg/dL Creatinine (0.7-1.2) mg/dL Est GFR ( Amer) Est GFR (Non-Af Amer) POC Glucose (mg/dL) 104 (65-110) mg/dL Random Glucose (65-105) mg/dL Calcium (8.6-10.4) mg/dl Phosphorus (2.5-4.5) mg/dL Magnesium (1.6-2.3) mg/dL Total Bilirubin (0.2-1.3) mg/dL AST (14-36) U/L ALT (9-52) U/L Alkaline Phosphatase (38-126) U/L Total Protein (6.3-8.3) g/dL Albumin (3.5-5.0) g/dL Globulin (2.2-3.9) gm/dL Albumin/Globulin Ratio (1.0-2.1) Laboratory Results - last 24 hr 04/04/17 04/04/17 04/04/17 06:24 06:25 12:01 WBC RBC Hgb Hct MCV MCH MCHC RDW Plt Count MPV Neut % (Auto) Lymph % (Auto) [place] % (Auto) Eos % (Auto) Baso % (Auto) Neut # Lymph # [place] # Eos # Baso # Neutrophils % (Manual) 92 H Lymphocytes % (Manual) 4 L Monocytes % (Manual) 4 Platelet Estimate Markedly decreased L Hypochromasia (manual) Slight Poikilocytosis (manual Slight Basophilic Stippling Slight Anisocytosis (manual) Slight [place] Cells Slight ESR 18 Puncture Site pCO2 pO2 HCO3 ABG pH ABG Total CO2 ABG O2 Saturation ABG Base Excess ABG Hemoglobin ABG Carboxyhemoglobin POC ABG HHb (Measured) ABG Methemoglobin Daljit Test A-a O2 Difference Respiratory Index Hgb O2 Saturation Vent Mode Mechanical Rate FiO2 Tidal Volume PEEP Crit Value Called To Crit Value Called By Crit Value Read Back Blood Gas Notified Time Sodium Potassium Chloride Carbon Dioxide Anion Gap BUN Creatinine Est GFR ( Amer) Est GFR (Non-Af Amer) POC Glucose (mg/dL) 104 Random Glucose Calcium Phosphorus Magnesium Total Bilirubin AST ALT Alkaline Phosphatase Total Protein Albumin Globulin Albumin/Globulin Ratio 04/04/17 04/05/17 04/05/17 17:32 00:37 05:00 WBC RBC Hgb Hct MCV MCH MCHC RDW Plt Count MPV Neut % (Auto) Lymph % (Auto) [place] % (Auto) Eos % (Auto) Baso % (Auto) Neut # Lymph # [place] # Eos # Baso # Neutrophils % (Manual) Lymphocytes % (Manual) Monocytes % (Manual) Platelet Estimate Hypochromasia (manual) Poikilocytosis (manual Basophilic Stippling Anisocytosis (manual) [place] Cells ESR Puncture Site Rt radial pCO2 39 pO2 173 H HCO3 29.6 H ABG pH 7.49 H ABG Total CO2 30.9 H ABG O2 Saturation 99.9 H ABG Base Excess 5.9 H ABG Hemoglobin 8.0 L ABG Carboxyhemoglobin 2.2 H POC ABG HHb (Measured) 0.1 ABG Methemoglobin 0.8 Daljit Test Pos A-a O2 Difference 135.0 Respiratory Index 0.8 Hgb O2 Saturation 96.8 Vent Mode Prvc Mechanical Rate 20 FiO2 50.0 Tidal Volume 450 PEEP 5 Crit Value Called To Md ernestine sosa Crit Value Called By R alert liquor commissioner Crit Value Read Back Y Blood Gas Notified Time 615 Sodium Potassium Chloride Carbon Dioxide Anion Gap BUN Creatinine Est GFR ( Amer) Est GFR (Non-Af Amer) POC Glucose (mg/dL) 117 H 152 H Random Glucose Calcium Phosphorus Magnesium Total Bilirubin AST ALT Alkaline Phosphatase Total Protein Albumin Globulin Albumin/Globulin Ratio 04/05/17 04/05/17 04/05/17 06:20 06:23 06:23 WBC 9.5 RBC 3.27 L Hgb 9.5 L Hct 29.1 L MCV 88.7 MCH 29.1 MCHC 32.8 L RDW 18.7 H Plt Count 9 L* D MPV 11.2 Neut % (Auto) 78.5 H Lymph % (Auto) 14.0 L [place] % (Auto) 6.7 Eos % (Auto) 0.1 Baso % (Auto) 0.7 Neut # 7.5 H Lymph # 1.3 [place] # 0.6 Eos # 0.0 Baso # 0.1 Neutrophils % (Manual) Lymphocytes % (Manual) Monocytes % (Manual) Platelet Estimate Hypochromasia (manual) Poikilocytosis (manual Basophilic Stippling Anisocytosis (manual) [place] Cells ESR Puncture Site pCO2 pO2 HCO3 ABG pH ABG Total CO2 ABG O2 Saturation ABG Base Excess ABG Hemoglobin ABG Carboxyhemoglobin POC ABG HHb (Measured) ABG Methemoglobin Daljit Test A-a O2 Difference Respiratory Index Hgb O2 Saturation Vent Mode Mechanical Rate FiO2 Tidal Volume PEEP Crit Value Called To Crit Value Called By Crit Value Read Back Blood Gas Notified Time Sodium 137 Potassium 3.9 Chloride 109 H Carbon Dioxide 27 Anion Gap 5 L BUN 31 H Creatinine 0.3 L Est GFR ( Amer) > 60 Est GFR (Non-Af Amer) > 60 POC Glucose (mg/dL) 115 H Random Glucose 117 H Calcium 8.2 L Phosphorus 2.8 Magnesium 1.9 Total Bilirubin 1.1 AST 68 H ALT 82 H Alkaline Phosphatase 232 H Total Protein 4.1 L Albumin 1.8 L Globulin 2.3 Albumin/Globulin Ratio 0.8 L Fingerstick Blood Sugar Results: 152 Review of Systems - Review of Systems Systems not reviewed;Unavailable: Intubated Assessment/Plan - Assessment and Plan (Free Text) Plan: Neuro * Intubated/sedated with propofol drip * Neurology consulted (Steve) - recs appreciated * Gabapentin 400 mg PO BID Cardio * RRR * BP stable * 03/29: Troponin + (0.2650, 0.1570) * 03/29: Heparin drip discontinued * Plavix 75 mg PO QD (d/c 04/03) * Crestor 20 mg PO HS * Echo: grade 1 relaxation pattern and mild pulmonary hypertension * EKG: T Wave abnormality * 03/29: BNP 36511 * UE and LE US - negative for DVT 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 * Intubated (20/450/5/50) - reduce FiO2 to 40 and attempt CPAP trial today () * No bronchoscopy at this time due to thrombocytopenia, risks outweigh benefit * CTA: b/l interstitial/alveolar infiltrate with superimposed multifocal eder consolidation, dilated main pulmonary artery * ABG 7.49/39/173/29.6 * Solu-medrol 125 mg IV Q6 Renal * Balance +922.5 * BUN/Cr 31/0.3 Fluids, electrolytes, nutrition * NG tube * Electrolytes WNL except for below * Cl 109 * Ca 8.2 * Albumin 1.8 Infectious disease * afebrile * WBC 9.5 * ID consulted (Cici) - recs appreciated * Sputum culture - no growth * Fluconazole 200 mg QD * 1g vanc Q12 * Aztreonam 1g IV Q8 * Doxy 100 IV Q12 * Mepron 1500 mg PO ACL * Flagyl 500 mg Q8 (end 04/03) * Tamiflu (end 04/04) Hematology - Anemia, thrombocytopenia * H&H: 9.5/29.1 * Plt: 9 * f/u PT/INR * f/u fibrinogen * 04/05: transfused 1U of platelets * Plavix 75 mg PO QD (d/c 04/03) * Heparin drip discontinued * Heme/Onc consulted (Thuy) - recs appreciated * 04/04: Bone marrow biopsy * 03/20: Folate >20, B12 >1000 GI * AST/ALT: 68/82 - possibly med side effect * Tbili: 1.1 * Zofran PRN Endocrine * monitor blood glucose * 03/24: HbA1c 4.7 * 03/20: AM Cortisol: 27.7, TSH: 1.65, Free T4: 2.22 * Solu-medrol 125 mg IV Q6 Integumentary * A&D ointment * Vaseline Rheumatology * Hydroxychloroquine 200 mg PO QD * Dr. Puckett consulted - recs appreciated Prophylaxis * Pepcid 20 mg PO BID <Chucky Astorga S - Last Filed: 04/05/17 16:49> CCU Objective - Vital Signs / Intake & Output Vital Signs (Last 4 hours): Vital Signs Temp Pulse Resp BP Pulse Ox 04/05/17 16:00 70 21 100 04/05/17 15:10 76 20 114/75 96 04/05/17 15:00 71 20 100 04/05/17 14:55 70 23 115/68 100 04/05/17 14:25 78 23 125/74 98 04/05/17 14:10 74 19 111/73 100 04/05/17 14:00 76 22 100 04/05/17 13:55 78 21 118/71 100 04/05/17 13:40 77 22 122/74 100 04/05/17 13:25 97.4 F L 74 20 117/73 99 04/05/17 13:10 81 16 125/73 98 04/05/17 13:00 98 H 15 92 L 04/05/17 12:56 97.4 F L 78 16 118/73 04/05/17 12:55 81 21 118/73 99 Intake and Output (Last 8hrs): Intake & Output 04/05/17 04/05/17 04/05/17 06:59 14:59 22:59 Intake Total 520.0 799.0 0 Output Total 405 315 80 Balance 115.0 484.0 -80 Weight 192 lb Intake: IV 100 80 Intake, IV Amount 100.0 353.0 Left Antecubital Mid-Line 100.0 53.0 #2 Left Antecubital Mid-line 300 Oral 0 Tube Feeding 320 170 Blood Product 196 Apheresis Plts Acda Lr 196 Irr Unit [id number] Output: Urine 405 315 80 Urethral (Lewis) 405 315 80 - Medications Active Medications: Active Medications Generic Name Dose Route Start Last Admin Trade Name Freq PRN Reason Stop Dose Admin Acetaminophen 650 mg 03/31/17 12:52 Tylenol 325mg Tab PO Q6 PRN Pain, moderate (4-7) Albuterol/Ipratropium 3 ml 04/01/17 14:00 04/05/17 13:10 Duoneb 3 Mg/0.5 Mg (3 Ml) Ud INH 3 ml RQ6 IMAN Administration Atovaquone 1,500 mg 03/30/17 11:30 04/05/17 12:27 Mepron PO 1,500 mg ACL IMAN Administration Emollient Ointment 5 gm 03/31/17 12:18 04/02/17 09:25 Vaseline Oint TOP 5 gm Q4 PRN Administration DRY SKIN Gabapentin 400 mg 03/23/17 10:00 04/05/17 09:48 Neurontin PO 400 mg BID IMAN Administration Hydroxychloroquine Sulfate 200 mg 03/28/17 10:00 04/05/17 09:48 Plaquenil PO 200 mg DAILY IMAN Administration Doxycycline Hyclate 100 mg/ 100 mls @ 100 mls/hr 03/29/17 14:00 04/05/17 14: 53 Sodium Chloride IVPB 100 mls/hr Q12H IMAN Administration Fluconazole 100 mls @ 100 mls/hr 03/30/17 10:00 04/05/17 10:00 Diflucan Iv 200 Mg/100 Ml Ns IVPB 100 mls/hr DAILY IMAN Administration Aztreonam 1 gm/ Sodium 100 mls @ 100 mls/hr 03/30/17 10:30 04/05/17 09:47 Chloride IVPB 100 mls/hr Q8H IMAN Administration Propofol 1,000 mg in 100 mls @ 2.494 mls/hr 03/31/17 15:15 04/05/17 10:00 Diprivan IV 0 mcg/kg/min .Q24H PRN 0 mls/hr TITRATE PER MD ORDER Titration Protocol 5 MCG/KG/MIN Vancomycin HCl 1 gm/ Sodium 250 mls @ 133.333 mls/hr 04/01/17 21:30 04/02/17 20:29 Chloride IVPB 133.333 mls/hr Q12H IMAN Administration Methylprednisolone 125 mg 04/04/17 12:00 04/05/17 12:28 Solu-Medrol IV 125 mg Q6 IMAN Administration Ondansetron HCl 4 mg 03/20/17 15:00 03/20/17 15:01 Zofran Inj IVP 4 mg Q6H PRN Administration Nausea/Vomiting Rosuvastatin Calcium 20 mg 03/23/17 22:00 04/04/17 22:06 Crestor PO 20 mg HS IMAN Administration - Patient Studies Lab Studies: Lab Studies 04/05/17 04/05/17 04/05/17 Range/Units 11:41 10:54 06:46 WBC (4.8-10.8) K/uL RBC (3.80-5.20) Mil/uL Hgb (11.0-16.0) g/dL Hct (34.0-47.0) % MCV (81.0-99.0) fL MCH (27.0-31.0) pg MCHC (33.0-37.0) g/dL RDW (11.5-14.5) % Plt Count (130-400) K/uL MPV (7.2-11.7) fL Neut % (Auto) (50.0-75.0) % Lymph % (Auto) (20.0-40.0) % [place] % (Auto) (0.0-10.0) % Eos % (Auto) (0.0-4.0) % Baso % (Auto) (0.0-2.0) % Neut # (1.8-7.0) K/uL Lymph # (1.0-4.3) K/uL [place] # (0.0-0.8) K/uL Eos # (0.0-0.7) K/uL Baso # (0.0-0.2) K/uL ESR 20 (0-20) mm/hr PT 16.3 H (9.7-12.2) SECONDS INR 1.4 APTT 32 (21-34) SECONDS Fibrinogen 204 (200-400) mg/dL Puncture Site pCO2 (35-45) mm/Hg pO2 (80-100) mm/Hg HCO3 (21-28) mmol/L ABG pH (7.35-7.45) ABG Total CO2 (22-28) mmol/L ABG O2 Saturation (95-98) % ABG Base Excess (-2.0-3.0) mmol/L ABG Hemoglobin (11.7-17.4) g/dL ABG Carboxyhemoglobin (0.5-1.5) % POC ABG HHb (Measured) (0.0-5.0) % ABG Methemoglobin (0.0-3.0) % Daljit Test A-a O2 Difference mm/Hg Respiratory Index Hgb O2 Saturation (95.0-98.0) % Vent Mode Mechanical Rate FiO2 % Tidal Volume PEEP Crit Value Called To Crit Value Called By Crit Value Read Back Blood Gas Notified Time Sodium (132-148) mmol/L Potassium (3.6-5.2) mmol/L Chloride (98-107) mmol/L Carbon Dioxide (22-30) mmol/L Anion Gap (10-20) BUN (7-17) mg/dL Creatinine (0.7-1.2) mg/dL Est GFR ( Amer) Est GFR (Non-Af Amer) POC Glucose (mg/dL) 123 H (65-110) mg/dL Random Glucose (65-105) mg/dL Calcium (8.6-10.4) mg/dl Phosphorus (2.5-4.5) mg/dL Magnesium (1.6-2.3) mg/dL Total Bilirubin (0.2-1.3) mg/dL AST (14-36) U/L ALT (9-52) U/L Alkaline Phosphatase (38-126) U/L Total Protein (6.3-8.3) g/dL Albumin (3.5-5.0) g/dL Globulin (2.2-3.9) gm/dL Albumin/Globulin Ratio (1.0-2.1) 04/05/17 04/05/17 04/05/17 Range/Units 06:23 06:23 06:20 WBC 9.5 (4.8-10.8) K/uL RBC 3.27 L (3.80-5.20) Mil/uL Hgb 9.5 L (11.0-16.0) g/dL Hct 29.1 L (34.0-47.0) % MCV 88.7 (81.0-99.0) fL MCH 29.1 (27.0-31.0) pg MCHC 32.8 L (33.0-37.0) g/dL RDW 18.7 H (11.5-14.5) % Plt Count 9 L* D (130-400) K/uL MPV 11.2 (7.2-11.7) fL Neut % (Auto) 78.5 H (50.0-75.0) % Lymph % (Auto) 14.0 L (20.0-40.0) % [place] % (Auto) 6.7 (0.0-10.0) % Eos % (Auto) 0.1 (0.0-4.0) % Baso % (Auto) 0.7 (0.0-2.0) % Neut # 7.5 H (1.8-7.0) K/uL Lymph # 1.3 (1.0-4.3) K/uL [place] # 0.6 (0.0-0.8) K/uL Eos # 0.0 (0.0-0.7) K/uL Baso # 0.1 (0.0-0.2) K/uL ESR (0-20) mm/hr PT (9.7-12.2) SECONDS INR APTT (21-34) SECONDS Fibrinogen (200-400) mg/dL Puncture Site pCO2 (35-45) mm/Hg pO2 (80-100) mm/Hg HCO3 (21-28) mmol/L ABG pH (7.35-7.45) ABG Total CO2 (22-28) mmol/L ABG O2 Saturation (95-98) % ABG Base Excess (-2.0-3.0) mmol/L ABG Hemoglobin (11.7-17.4) g/dL ABG Carboxyhemoglobin (0.5-1.5) % POC ABG HHb (Measured) (0.0-5.0) % ABG Methemoglobin (0.0-3.0) % Daljit Test A-a O2 Difference mm/Hg Respiratory Index Hgb O2 Saturation (95.0-98.0) % Vent Mode Mechanical Rate FiO2 % Tidal Volume PEEP Crit Value Called To Crit Value Called By Crit Value Read Back Blood Gas Notified Time Sodium 137 (132-148) mmol/L Potassium 3.9 (3.6-5.2) mmol/L Chloride 109 H (98-107) mmol/L Carbon Dioxide 27 (22-30) mmol/L Anion Gap 5 L (10-20) BUN 31 H (7-17) mg/dL Creatinine 0.3 L (0.7-1.2) mg/dL Est GFR ( Amer) > 60 Est GFR (Non-Af Amer) > 60 POC Glucose (mg/dL) 115 H (65-110) mg/dL Random Glucose 117 H (65-105) mg/dL Calcium 8.2 L (8.6-10.4) mg/dl Phosphorus 2.8 (2.5-4.5) mg/dL Magnesium 1.9 (1.6-2.3) mg/dL Total Bilirubin 1.1 (0.2-1.3) mg/dL AST 68 H (14-36) U/L ALT 82 H (9-52) U/L Alkaline Phosphatase 232 H (38-126) U/L Total Protein 4.1 L (6.3-8.3) g/dL Albumin 1.8 L (3.5-5.0) g/dL Globulin 2.3 (2.2-3.9) gm/dL Albumin/Globulin Ratio 0.8 L (1.0-2.1) 04/05/17 04/05/1717 Range/Units 05:00 00:37 17:32 WBC (4.8-10.8) K/uL RBC (3.80-5.20) Mil/uL Hgb (11.0-16.0) g/dL Hct (34.0-47.0) % MCV (81.0-99.0) fL MCH (27.0-31.0) pg MCHC (33.0-37.0) g/dL RDW (11.5-14.5) % Plt Count (130-400) K/uL MPV (7.2-11.7) fL Neut % (Auto) (50.0-75.0) % Lymph % (Auto) (20.0-40.0) % [place] % (Auto) (0.0-10.0) % Eos % (Auto) (0.0-4.0) % Baso % (Auto) (0.0-2.0) % Neut # (1.8-7.0) K/uL Lymph # (1.0-4.3) K/uL [place] # (0.0-0.8) K/uL Eos # (0.0-0.7) K/uL Baso # (0.0-0.2) K/uL ESR (0-20) mm/hr PT (9.7-12.2) SECONDS INR APTT (21-34) SECONDS Fibrinogen (200-400) mg/dL Puncture Site Rt radial pCO2 39 (35-45) mm/Hg pO2 173 H (80-100) mm/Hg HCO3 29.6 H (21-28) mmol/L ABG pH 7.49 H (7.35-7.45) ABG Total CO2 30.9 H (22-28) mmol/L ABG O2 Saturation 99.9 H (95-98) % ABG Base Excess 5.9 H (-2.0-3.0) mmol/L ABG Hemoglobin 8.0 L (11.7-17.4) g/dL ABG Carboxyhemoglobin 2.2 H (0.5-1.5) % POC ABG HHb (Measured) 0.1 (0.0-5.0) % ABG Methemoglobin 0.8 (0.0-3.0) % Daljit Test Pos A-a O2 Difference 135.0 mm/Hg Respiratory Index 0.8 Hgb O2 Saturation 96.8 (95.0-98.0) % Vent Mode Prvc Mechanical Rate 20 FiO2 50.0 % Tidal Volume 450 PEEP 5 Crit Value Called To Md ernestine sosa Crit Value Called By R alert liquor commissioner Crit Value Read Back Y Blood Gas Notified Time 615 Sodium (132-148) mmol/L Potassium (3.6-5.2) mmol/L Chloride (98-107) mmol/L Carbon Dioxide (22-30) mmol/L Anion Gap (10-20) BUN (7-17) mg/dL Creatinine (0.7-1.2) mg/dL Est GFR ( Amer) Est GFR (Non-Af Amer) POC Glucose (mg/dL) 152 H 117 H (65-110) mg/dL Random Glucose (65-105) mg/dL Calcium (8.6-10.4) mg/dl Phosphorus (2.5-4.5) mg/dL Magnesium (1.6-2.3) mg/dL Total Bilirubin (0.2-1.3) mg/dL AST (14-36) U/L ALT (9-52) U/L Alkaline Phosphatase (38-126) U/L Total Protein (6.3-8.3) g/dL Albumin (3.5-5.0) g/dL Globulin (2.2-3.9) gm/dL Albumin/Globulin Ratio (1.0-2.1) Laboratory Results - last 24 hr 04/04/17 04/05/17 04/05/17 17:32 00:37 05:00 WBC RBC Hgb Hct MCV MCH MCHC RDW Plt Count MPV Neut % (Auto) Lymph % (Auto) [place] % (Auto) Eos % (Auto) Baso % (Auto) Neut # Lymph # [place] # Eos # Baso # ESR PT INR APTT Fibrinogen Puncture Site Rt radial pCO2 39 pO2 173 H HCO3 29.6 H ABG pH 7.49 H ABG Total CO2 30.9 H ABG O2 Saturation 99.9 H ABG Base Excess 5.9 H ABG Hemoglobin 8.0 L ABG Carboxyhemoglobin 2.2 H POC ABG HHb (Measured) 0.1 ABG Methemoglobin 0.8 Daljit Test Pos A-a O2 Difference 135.0 Respiratory Index 0.8 Hgb O2 Saturation 96.8 Vent Mode Prvc Mechanical Rate 20 FiO2 50.0 Tidal Volume 450 PEEP 5 Crit Value Called To Md ernestine sosa Crit Value Called By R alert liquor commissioner Crit Value Read Back Y Blood Gas Notified Time 615 Sodium Potassium Chloride Carbon Dioxide Anion Gap BUN Creatinine Est GFR ( Amer) Est GFR (Non-Af Amer) POC Glucose (mg/dL) 117 H 152 H Random Glucose Calcium Phosphorus Magnesium Total Bilirubin AST ALT Alkaline Phosphatase Total Protein Albumin Globulin Albumin/Globulin Ratio 04/05/17 04/05/17 04/05/17 06:20 06:23 06:23 WBC 9.5 RBC 3.27 L Hgb 9.5 L Hct 29.1 L MCV 88.7 MCH 29.1 MCHC 32.8 L RDW 18.7 H Plt Count 9 L* D MPV 11.2 Neut % (Auto) 78.5 H Lymph % (Auto) 14.0 L [place] % (Auto) 6.7 Eos % (Auto) 0.1 Baso % (Auto) 0.7 Neut # 7.5 H Lymph # 1.3 [place] # 0.6 Eos # 0.0 Baso # 0.1 ESR PT INR APTT Fibrinogen Puncture Site pCO2 pO2 HCO3 ABG pH ABG Total CO2 ABG O2 Saturation ABG Base Excess ABG Hemoglobin ABG Carboxyhemoglobin POC ABG HHb (Measured) ABG Methemoglobin Daljit Test A-a O2 Difference Respiratory Index Hgb O2 Saturation Vent Mode Mechanical Rate FiO2 Tidal Volume PEEP Crit Value Called To Crit Value Called By Crit Value Read Back Blood Gas Notified Time Sodium 137 Potassium 3.9 Chloride 109 H Carbon Dioxide 27 Anion Gap 5 L BUN 31 H Creatinine 0.3 L Est GFR ( Amer) > 60 Est GFR (Non-Af Amer) > 60 POC Glucose (mg/dL) 115 H Random Glucose 117 H Calcium 8.2 L Phosphorus 2.8 Magnesium 1.9 Total Bilirubin 1.1 AST 68 H ALT 82 H Alkaline Phosphatase 232 H Total Protein 4.1 L Albumin 1.8 L Globulin 2.3 Albumin/Globulin Ratio 0.8 L 04/05/17 04/05/17 04/05/17 06:46 10:54 11:41 WBC RBC Hgb Hct MCV MCH MCHC RDW Plt Count MPV Neut % (Auto) Lymph % (Auto) [place] % (Auto) Eos % (Auto) Baso % (Auto) Neut # Lymph # [place] # Eos # Baso # ESR 20 PT 16.3 H INR 1.4 APTT 32 Fibrinogen 204 Puncture Site pCO2 pO2 HCO3 ABG pH ABG Total CO2 ABG O2 Saturation ABG Base Excess ABG Hemoglobin ABG Carboxyhemoglobin POC ABG HHb (Measured) ABG Methemoglobin Daljit Test A-a O2 Difference Respiratory Index Hgb O2 Saturation Vent Mode Mechanical Rate FiO2 Tidal Volume PEEP Crit Value Called To Crit Value Called By Crit Value Read Back Blood Gas Notified Time Sodium Potassium Chloride Carbon Dioxide Anion Gap BUN Creatinine Est GFR ( Amer) Est GFR (Non-Af Amer) POC Glucose (mg/dL) 123 H Random Glucose Calcium Phosphorus Magnesium Total Bilirubin AST ALT Alkaline Phosphatase Total Protein Albumin Globulin Albumin/Globulin Ratio Attending/Attestation - Attestation I have personally seen and examined this patient.: Yes I have fully participated in the care of the patient.: Yes I have reviewed all pertinent clinical information: Yes Notes (Text): 04/05/17 16:48 PATIENT SEEN AND EXAMINED IN THE INTENSIVE CARE UNIT. Patient extubated after of weaning trial Comfortable in no respiratory distress Status post bone marrow biopsy Transfuse platelets Continue IV steroids
--- NOTE | 2017-04-05 09:09 | CP.PCM.PN ---
Subjective - Date & Time of Evaluation Date of Evaluation: 04/05/17 Time of Evaluation: 08:45 - Subjective Subjective: Patient was seen and examined by me. Hospitalist service is covering Dr Pillai for a few days She remains intubated at this time and sedation with propofol. When I saw her she was able to open her eyes and briefly moved her arms at me - and then went back to sleep. Her platelet count decreased further to 9K this morning. ICU has ordered platelets given The CXRAY is pending an official read however it doesn't look substantially different from yesterday. However compared to 03/29 there's been a noticeable improvment. From what I understand it's been decided to hold of on bronchoscopy due to improving CXRAY and also due to the low platelet counts She's still on a lot of abx at this time. I spoke with the patient family members Jose Awad [phone] and Anitha Awad [phone] over the phone and gave them an update Objective - Vital Signs/Intake and Output Vital Signs (last 24 hours): Temp Pulse Resp BP Pulse Ox 97.6 F 75 10 L 114/78 99 04/05/17 08:00 04/05/17 08:01 04/05/17 08:01 04/05/17 08:01 04/05/17 08:01 Intake and Output: 04/05/17 04/05/17 06:59 18:59 Intake Total 742.5 115.0 Output Total 545 60 Balance 197.5 55.0 - Medications Medications: Current Medications Acetaminophen (Tylenol 325mg Tab) 650 mg PO Q6 PRN PRN Reason: Pain, moderate (4-7) Albuterol/Ipratropium (Duoneb 3 Mg/0.5 Mg (3 Ml) Ud) 3 ml INH RQ6 IMAN Last Admin: 04/05/17 08:18 Dose: 3 ml Atovaquone (Mepron) 1,500 mg PO ACL IMAN Last Admin: 04/04/17 12:54 Dose: 1,500 mg Emollient Ointment (Vaseline Oint) 5 gm TOP Q4 PRN PRN Reason: DRY SKIN Last Admin: 04/02/17 09:25 Dose: 5 gm Gabapentin (Neurontin) 400 mg PO BID IMAN Last Admin: 04/04/17 17:33 Dose: 400 mg Hydroxychloroquine Sulfate (Plaquenil) 200 mg PO DAILY [facility] Last Admin: 04/04/17 09:29 Dose: 200 mg Doxycycline Hyclate 100 mg/ (Sodium Chloride) 100 mls @ 100 mls/hr IVPB Q12H [facility] Last Admin: 04/05/17 01:17 Dose: 100 mls/hr Fluconazole (Diflucan Iv 200 Mg/100 Ml Ns) 100 mls @ 100 mls/hr IVPB DAILY [facility] Last Admin: 04/04/17 09:29 Dose: 100 mls/hr Aztreonam 1 gm/ Sodium (Chloride) 100 mls @ 100 mls/hr IVPB Q8H [facility] Last Admin: 04/05/17 01:35 Dose: 100 mls/hr Propofol (Diprivan) 1,000 mg in 100 mls @ 2.494 mls/hr IV .Q24H PRN; Protocol; 5 MCG/KG/MIN PRN Reason: TITRATE PER MD ORDER Last Admin: 04/05/17 06:30 Dose: 25 mcg/kg/min, 12.471 mls/hr Vancomycin HCl 1 gm/ Sodium (Chloride) 250 mls @ 133.333 mls/hr IVPB Q12H [facility] Last Admin: 04/02/17 20:29 Dose: 133.333 mls/hr Methylprednisolone (Solu-Medrol) 125 mg IV Q6 [facility] Last Admin: 04/05/17 06:30 Dose: 125 mg Ondansetron HCl (Zofran Inj) 4 mg IVP Q6H PRN PRN Reason: Nausea/Vomiting Last Admin: 03/20/17 15:01 Dose: 4 mg Rosuvastatin Calcium (Crestor) 20 mg PO HS [facility] Last Admin: 04/04/17 22:06 Dose: 20 mg - Labs Labs: 04/05/17 06:23 04/05/17 06:23 PT 16.2 SECONDS (9.7-12.2) H 03/20/17 04:08 INR 1.4 03/20/17 04:08 APTT 38 SECONDS (21-34) H D 03/20/17 04:08 - Constitutional Appears: Chronically Ill - ENT Exam ENT Exam: Mucous Membranes Moist - Respiratory Exam Respiratory Exam: Rales, Rhonchi - Cardiovascular Exam Cardiovascular Exam: REGULAR RHYTHM - GI/Abdominal Exam GI & Abdominal Exam: Soft, Normal Bowel Sounds. absent: Guarding, Rigid, Tenderness - Neurological Exam Neurological Exam: Altered Additional comments: On propofol Assessment and Plan - Assessment and Plan (Free Text) Assessment: Assessment and Plan (1) Acute respiratory failure Assessment & Plan: 04/05: Decreasing platelet count. Remains intubated at this time. Cultures are negative at the moment. 04/04: Remains intubated at this time and on sedation. The CXRAY this AM appeared to have some improvment when compared to previous. Patient was intubated 03/31 given respiratory distress. 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 Possible bronchscopy or broncholavag r/o infection. Patient is thrombocytopenia. Plavix discontinued today. I discussed with neurology prior to discontinuation given worsening thrombocytopenia and consideration for bronch. He does not agree with abnormal brain MRI given patient does not clinically present with symptoms. Mepron 1500mg PO ACL (cover for PCP in light of immunosuppression from lupus therapy) Fluconazole 200mg IVPB daily (since 03/30) Aztreonam 1 gram IVPB Q8H (since 03/30) Doxycycline 100mg IVQ12H (since 03/29) Tamiflu 75mg PO BID (03/30-04/04) Influenza: negative Legionella: negative Mycoplasma IgM: negative ASO: negative Will check HIV given patient is on detention suppression therapy prior for lupus. (2) Pneumonitis Assessment & Plan: secondary to lupus likely. 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 Pillai 04/02 Hematology: Dr. Olivia Daley on the case help appreciated Direct kimo negative low retic index; hypoproliferative erythroid response unlikely acute hemolysis anemia of chronic disease immunosuppression contribution on marrow Status: Chronic (6) Thrombocytopenia Assessment & Plan: 04/05: ICU is tranfusing platelets. Hgb is 9.5 today. Remains off of plavix and ASA. She just had a bone marrow biopsy done by hematology/oncology 04/04: Platelet count again slightly decreased to 15K. Currently off of Plavix if counts do not rebound, will need bone marrow evaluation per heme-onc when clinically stable per latest heme-onc note 04/03-->Discussed with Dr. Garibay, in light of worsening thrombocytopenia, discontinue Plavix. Patient had been on Plavix for abnormal brain MRI previously. 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 Neurology last noted from , neurologically stable. C/w Neurotin 400mg PO BID with PT and DVT ppX Workup: MRI of brain as acute to subacute process of infarct in mid pontine region, does not show clinical picture suggestive of ischemic process affecting pontine region. possible artifactual. Normal EEG. 03/22 Lumbar spine MRI- Multilevel degenerative spondylosis most significantly affecting the L3-L4 and L2-L3 levels and to a lesser degree L4-L5 levels. 03/22 Thoracic spine MRI- moderate to fairly significant degenerative spondylosis of the cervical spine seen on the sagittal counting sequence with the moderate canal stenosis as well as a cord compression most significant at at the C4-C5 and C5-C6 levels. Dr Olsen (spinal oral surgery physician) for evaluation of MRI and recommendation , help appreciated- Dr Olsen saw and examined patient. 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 Medellin (cardiolology) was consulted. Likely demand ischemia. Previous echocardiogram reveals normal left ventricular function. The patient is currently asymptomatic. If normalizes can consider d/c heparin. add antiplatelet therapy. (12) CHF (congestive heart failure) Assessment & Plan: suspecting diastolic heart failure anticoagulation contraindicated secondary to thrombocytopenia Crestor 20mg POHS off antihypertensive therapy (blood pressure is normal limits) Echocardiogram: left ventricle systolic function is normal/ EF: 75%. Abnormal relaxation pattern. Mild pulm hypertension. (13) Disorder of electrolytes Assessment & Plan: repleted (14) Prophylactic measure Assessment & Plan: Anticoagulation contraindicated secondary to thrombocytopenia d/c Plavix, discussed with Dr. garibay in light of worsening thrombocytopenia
[2017-04-05] MEDS: Fluconazole IV 200mg/100 ml NS 100 ML IVPB SCH (10:00)
--- NOTE | 2017-04-05 10:14 | RAD ---
HISTORY: Follow up Pulmonary edema COMPARISON: 04/04/2017 FINDINGS: LUNGS: Further improvement in the patchy multifocal bilateral pulmonary opacity. Minimal residual opacity in right lung and no definite left lung opacity. No focal consolidation. However there is some silhouetting of the left hemidiaphragm which may be the result of consolidation and/or pleural effusion at left base. PLEURA: Possible small left pleural effusion. No right pleural effusion. No pneumothorax. CARDIOVASCULAR: ETT, NG tube unchanged from prior. OSSEOUS STRUCTURES: No significant abnormalities. VISUALIZED UPPER ABDOMEN: Normal. OTHER FINDINGS: None. IMPRESSION: Left basilar consolidation versus small left pleural effusion. Improving ill-defined opacity throughout right lung with no residual left lung opacity aside from possible basilar consolidation. .
--- NOTE | 2017-04-05 10:28 | PN ---
DATE: 04/05/2017 TIME OF EVALUATION: 7:13 a.m. NEUROLOGIC PROBLEM: Respiratory failure with thrombocytopenia. SUBJECTIVE: The patient is under sedation. Opening her eyes on calling her name. Respond to tactile stimuli. Moves all 4 extremities purposefully on pain stimulus. The patient did have bone marrow biopsy yesterday, the results are still pending. Her platelets currently is less than 9, probably waiting for platelet transfusion today. All offending agents for thrombocytopenia are being on hold. Continue the present management. Keep the mean arterial pressure around 90 to 100. Andres Wilson MD
[2017-04-05 11:17] LABS: INR 1.4; PROTHROMBIN TIME 16.3 SECONDS (9.7-12.2)
[2017-04-05] MEDS: Atovaquone 750 mg/5 ml Susp UD PO SCH (12:27)
[2017-04-06] MEDS: Albuterol-Ipratrop 3 mg / 0.5 (3 ml) UD INH SCH ×4 (01:09→20:04)
[2017-04-06] MEDS: Aztreonam 1 GM in Sodium Chloride 0.9% 100 ML IVPB SCH ×3 (02:37→18:30)
[2017-04-06 06:14] LABS: HEMOGLOBIN 8.9 g/dL (11.0-16.0); LYMPH # 0.5 K/uL (1.0-4.3); LYMPH % 5.9 % (20.0-40.0); MEAN CELL VOLUME 88.6 fL (81.0-99.0); MEAN CORPUSCULAR HEMOGLOBIN 29.5 pg (27.0-31.0); MEAN CORPUSCULAR HGB CONC 33.3 g/dL (33.0-37.0); MEAN PLATELET VOLUME 10.3 fL (7.2-11.7); MONO # 0.7 K/uL (0.0-0.8); MONO % 7.8 % (0.0-10.0); NEUT # 7.7 K/uL (1.8-7.0); NEUT % 86.3 % (50.0-75.0); NRBC % 0.1 % (0.0-2.0); RBC 3.03 Mil/uL (3.80-5.20); RED CELL DISTRIBUTION WIDTH 18.7 % (11.5-14.5)
[2017-04-06 06:26] LABS: ALBUMIN 1.9 g/dL (3.5-5.0); ALT/SGPT 85 U/L (9-52); AST/SGOT 70 U/L (14-36); BLOOD UREA NITROGEN 31 mg/dL (7-17); CALCIUM 8.2 mg/dl (8.6-10.4); GFR AFRICAN-AMERICAN > 60; GFR NON-AFRICAN AMERICAN > 60; PLATELET COUNT 10 K/uL (130-400)
[2017-04-06 06:32] LABS: ALB/GLOB RATIO 0.8 (1.0-2.1)
--- NOTE | 2017-04-06 07:41 | CP.CCUPN ---
<Thais Luz - Last Filed: 04/06/17 13:36> CCU Subjective - Physician Review Subjective (Free Text): 04/06/17 07:38 Patient seen and examined at bedside. Patient resting comfortably in bed with no new complaints at this time. No acute events overnight. Patient was extubated yesterday and has been saturating well since then on 3L nasal canula. Patient denies chest pain, SOB, palpitations, headache, sore throat, and abdominal pain. CCU Objective - Vital Signs / Intake & Output Vital Signs (Last 4 hours): Vital Signs Temp Pulse Resp BP Pulse Ox 04/06/17 06:58 94 H 24 118/73 99 04/06/17 06:00 94 H 18 100 04/06/17 05:58 120/78 04/06/17 05:00 86 14 99 04/06/17 04:58 105/68 04/06/17 04:00 97.8 F 86 15 99 04/06/17 03:58 102/66 Intake and Output (Last 8hrs): Intake & Output 04/05/17 04/06/17 04/06/17 22:59 06:59 14:59 Intake Total 100 250 Output Total 280 210 Balance -180 40 Weight 214 lb 5 oz Intake: Intake, IV Amount 200 Left Antecubital Mid-Line 200 #2 Oral 100 50 Output: Urine 280 210 Urethral (Lewis) 280 210 Other: # Bowel Movements 1 0 - Physical Exam Head: Positive for: Atraumatic, Normocephalic Pupils: Positive for: PERRL Extroacular Muscles: Positive for: EOMI Conjunctiva: Positive for: Normal Mouth: Positive for: Moist Mucous Membranes Neck: Negative for: JVD Respiratory/Chest: Positive for: Clear to Auscultation, Good Air Exchange, Other (on Nasal canula 3L ). Negative for: Respiratory Distress, Accessory Muscle Use, Wheezes, Rales, Rhonchi Cardiovascular: Positive for: Regular Rate and Rhythm, Normal S1, S2. Negative for: Tachycardic, Bradycardic Abdomen: Positive for: Normal Bowel Sounds. Negative for: Tenderness, Distention, Peritoneal Signs Upper Extremity: Positive for: Normal Inspection Lower Extremity: Positive for: Edema. Negative for: Tenderness Neurological: Positive for: GCS=15, Speech Normal Skin: Positive for: Warm, Dry. Negative for: Rashes Psychiatric: Positive for: Alert, Oriented x 3, Normal Insight, Normal Concentration - Medications Active Medications: Active Medications Generic Name Dose Route Start Last Admin Trade Name Freq PRN Reason Stop Dose Admin Acetaminophen 650 mg 03/31/17 12:52 Tylenol 325mg Tab PO Q6 PRN Pain, moderate (4-7) Albuterol/Ipratropium 3 ml 04/01/17 14:00 04/06/17 01:09 Duoneb 3 Mg/0.5 Mg (3 Ml) Ud INH 3 ml RQ6 IMAN Administration Atovaquone 1,500 mg 03/30/17 11:30 04/05/17 12:27 Mepron PO 1,500 mg ACL IMAN Administration Emollient Ointment 5 gm 03/31/17 12:18 04/02/17 09:25 Vaseline Oint TOP 5 gm Q4 PRN Administration DRY SKIN Gabapentin 400 mg 03/23/17 10:00 04/05/17 17:55 Neurontin PO Not Given BID IMAN Hydroxychloroquine Sulfate 200 mg 03/28/17 10:00 04/05/17 09:48 Plaquenil PO 200 mg DAILY IMAN Administration Doxycycline Hyclate 100 mg/ 100 mls @ 100 mls/hr 03/29/17 14:00 04/06/17 02: 06 Sodium Chloride IVPB 100 mls/hr Q12H IMAN Administration Fluconazole 100 mls @ 100 mls/hr 03/30/17 10:00 04/05/17 10:00 Diflucan Iv 200 Mg/100 Ml Ns IVPB 100 mls/hr DAILY IMAN Administration Aztreonam 1 gm/ Sodium 100 mls @ 100 mls/hr 03/30/17 10:30 04/06/17 02:37 Chloride IVPB 100 mls/hr Q8H IMAN Administration Propofol 1,000 mg in 100 mls @ 2.494 mls/hr 03/31/17 15:15 04/05/17 10:00 Diprivan IV 0 mcg/kg/min .Q24H PRN 0 mls/hr TITRATE PER MD ORDER Titration Protocol 5 MCG/KG/MIN Vancomycin HCl 1 gm/ Sodium 250 mls @ 133.333 mls/hr 04/01/17 21:30 04/02/17 20:29 Chloride IVPB 133.333 mls/hr Q12H IMAN Administration Methylprednisolone 125 mg 04/04/17 12:00 04/06/17 05:44 Solu-Medrol IV 125 mg Q6 IMAN Administration Ondansetron HCl 4 mg 03/20/17 15:00 03/20/17 15:01 Zofran Inj IVP 4 mg Q6H PRN Administration Nausea/Vomiting Rosuvastatin Calcium 20 mg 03/23/17 22:00 04/05/17 21:27 Crestor PO 20 mg HS IMAN Administration - Patient Studies Lab Studies: Lab Studies 04/06/17 04/06/17 04/06/17 Range/Units 06:05 06:05 05:26 WBC 9.0 (4.8-10.8) K/uL RBC 3.03 L (3.80-5.20) Mil/uL Hgb 8.9 L (11.0-16.0) g/dL Hct 26.8 L (34.0-47.0) % MCV 88.6 (81.0-99.0) fL MCH 29.5 (27.0-31.0) pg MCHC 33.3 (33.0-37.0) g/dL RDW 18.7 H (11.5-14.5) % Plt Count 10 L* (130-400) K/uL MPV 10.3 (7.2-11.7) fL Neut % (Auto) 86.3 H (50.0-75.0) % Lymph % (Auto) 5.9 L (20.0-40.0) % Rains % (Auto) 7.8 (0.0-10.0) % Eos % (Auto) 0.0 (0.0-4.0) % Baso % (Auto) 0.0 (0.0-2.0) % Neut # 7.7 H (1.8-7.0) K/uL Lymph # 0.5 L (1.0-4.3) K/uL Rains # 0.7 (0.0-0.8) K/uL Eos # 0.0 (0.0-0.7) K/uL Baso # 0.0 (0.0-0.2) K/uL ESR (0-20) mm/hr PT (9.7-12.2) SECONDS INR APTT (21-34) SECONDS Fibrinogen (200-400) mg/dL Sodium 139 (132-148) mmol/L Potassium 4.0 (3.6-5.2) mmol/L Chloride 108 H (98-107) mmol/L Carbon Dioxide 26 (22-30) mmol/L Anion Gap 8 L (10-20) BUN 31 H (7-17) mg/dL Creatinine 0.3 L (0.7-1.2) mg/dL Est GFR ( Amer) > 60 Est GFR (Non-Af Amer) > 60 POC Glucose (mg/dL) 131 H (65-110) mg/dL Random Glucose 112 H (65-105) mg/dL Calcium 8.2 L (8.6-10.4) mg/dl Total Bilirubin 1.1 (0.2-1.3) mg/dL AST 70 H (14-36) U/L ALT 85 H (9-52) U/L Alkaline Phosphatase 214 H (38-126) U/L Total Protein 4.2 L (6.3-8.3) g/dL Albumin 1.9 L (3.5-5.0) g/dL Globulin 2.3 (2.2-3.9) gm/dL Albumin/Globulin Ratio 0.8 L (1.0-2.1) Scl-70 Antibody (<1.0) AI Scl-70 Interpretation (Negative) 04/05/17 04/05/17 04/05/17 Range/Units 23:43 17:50 11:41 WBC (4.8-10.8) K/uL RBC (3.80-5.20) Mil/uL Hgb (11.0-16.0) g/dL Hct (34.0-47.0) % MCV (81.0-99.0) fL MCH (27.0-31.0) pg MCHC (33.0-37.0) g/dL RDW (11.5-14.5) % Plt Count (130-400) K/uL MPV (7.2-11.7) fL Neut % (Auto) (50.0-75.0) % Lymph % (Auto) (20.0-40.0) % Rains % (Auto) (0.0-10.0) % Eos % (Auto) (0.0-4.0) % Baso % (Auto) (0.0-2.0) % Neut # (1.8-7.0) K/uL Lymph # (1.0-4.3) K/uL Rains # (0.0-0.8) K/uL Eos # (0.0-0.7) K/uL Baso # (0.0-0.2) K/uL ESR (0-20) mm/hr PT (9.7-12.2) SECONDS INR APTT (21-34) SECONDS Fibrinogen (200-400) mg/dL Sodium (132-148) mmol/L Potassium (3.6-5.2) mmol/L Chloride (98-107) mmol/L Carbon Dioxide (22-30) mmol/L Anion Gap (10-20) BUN (7-17) mg/dL Creatinine (0.7-1.2) mg/dL Est GFR ( Amer) Est GFR (Non-Af Amer) POC Glucose (mg/dL) 150 H 105 123 H (65-110) mg/dL Random Glucose (65-105) mg/dL Calcium (8.6-10.4) mg/dl Total Bilirubin (0.2-1.3) mg/dL AST (14-36) U/L ALT (9-52) U/L Alkaline Phosphatase (38-126) U/L Total Protein (6.3-8.3) g/dL Albumin (3.5-5.0) g/dL Globulin (2.2-3.9) gm/dL Albumin/Globulin Ratio (1.0-2.1) Scl-70 Antibody (<1.0) AI Scl-70 Interpretation (Negative) 04/05/17 04/05/17 04/03/17 Range/Units 10:54 06:46 14:36 WBC (4.8-10.8) K/uL RBC (3.80-5.20) Mil/uL Hgb (11.0-16.0) g/dL Hct (34.0-47.0) % MCV (81.0-99.0) fL MCH (27.0-31.0) pg MCHC (33.0-37.0) g/dL RDW (11.5-14.5) % Plt Count (130-400) K/uL MPV (7.2-11.7) fL Neut % (Auto) (50.0-75.0) % Lymph % (Auto) (20.0-40.0) % Rains % (Auto) (0.0-10.0) % Eos % (Auto) (0.0-4.0) % Baso % (Auto) (0.0-2.0) % Neut # (1.8-7.0) K/uL Lymph # (1.0-4.3) K/uL Rains # (0.0-0.8) K/uL Eos # (0.0-0.7) K/uL Baso # (0.0-0.2) K/uL ESR 20 (0-20) mm/hr PT 16.3 H (9.7-12.2) SECONDS INR 1.4 APTT 32 (21-34) SECONDS Fibrinogen 204 (200-400) mg/dL Sodium (132-148) mmol/L Potassium (3.6-5.2) mmol/L Chloride (98-107) mmol/L Carbon Dioxide (22-30) mmol/L Anion Gap (10-20) BUN (7-17) mg/dL Creatinine (0.7-1.2) mg/dL Est GFR ( Amer) Est GFR (Non-Af Amer) POC Glucose (mg/dL) (65-110) mg/dL Random Glucose (65-105) mg/dL Calcium (8.6-10.4) mg/dl Total Bilirubin (0.2-1.3) mg/dL AST (14-36) U/L ALT (9-52) U/L Alkaline Phosphatase (38-126) U/L Total Protein (6.3-8.3) g/dL Albumin (3.5-5.0) g/dL Globulin (2.2-3.9) gm/dL Albumin/Globulin Ratio (1.0-2.1) Scl-70 Antibody <1.0 (<1.0) AI Scl-70 Interpretation Negative (Negative) Laboratory Results - last 24 hr 04/03/17 04/05/17 04/05/17 14:36 06:46 10:54 WBC RBC Hgb Hct MCV MCH MCHC RDW Plt Count MPV Neut % (Auto) Lymph % (Auto) Rains % (Auto) Eos % (Auto) Baso % (Auto) Neut # Lymph # Rains # Eos # Baso # ESR 20 PT 16.3 H INR 1.4 APTT 32 Fibrinogen 204 Sodium Potassium Chloride Carbon Dioxide Anion Gap BUN Creatinine Est GFR ( Amer) Est GFR (Non-Af Amer) POC Glucose (mg/dL) Random Glucose Calcium Total Bilirubin AST ALT Alkaline Phosphatase Total Protein Albumin Globulin Albumin/Globulin Ratio Scl-70 Antibody <1.0 Scl-70 Interpretation Negative 04/05/17 04/05/17 04/05/17 11:41 17:50 23:43 WBC RBC Hgb Hct MCV MCH MCHC RDW Plt Count MPV Neut % (Auto) Lymph % (Auto) Rains % (Auto) Eos % (Auto) Baso % (Auto) Neut # Lymph # Rains # Eos # Baso # ESR PT INR APTT Fibrinogen Sodium Potassium Chloride Carbon Dioxide Anion Gap BUN Creatinine Est GFR ( Amer) Est GFR (Non-Af Amer) POC Glucose (mg/dL) 123 H 105 150 H Random Glucose Calcium Total Bilirubin AST ALT Alkaline Phosphatase Total Protein Albumin Globulin Albumin/Globulin Ratio Scl-70 Antibody Scl-70 Interpretation 04/06/17 04/06/17 04/06/17 05:26 06:05 06:05 WBC 9.0 RBC 3.03 L Hgb 8.9 L Hct 26.8 L MCV 88.6 MCH 29.5 MCHC 33.3 RDW 18.7 H Plt Count 10 L* MPV 10.3 Neut % (Auto) 86.3 H Lymph % (Auto) 5.9 L Rains % (Auto) 7.8 Eos % (Auto) 0.0 Baso % (Auto) 0.0 Neut # 7.7 H Lymph # 0.5 L Rains # 0.7 Eos # 0.0 Baso # 0.0 ESR PT INR APTT Fibrinogen Sodium 139 Potassium 4.0 Chloride 108 H Carbon Dioxide 26 Anion Gap 8 L BUN 31 H Creatinine 0.3 L Est GFR ( Amer) > 60 Est GFR (Non-Af Amer) > 60 POC Glucose (mg/dL) 131 H Random Glucose 112 H Calcium 8.2 L Total Bilirubin 1.1 AST 70 H ALT 85 H Alkaline Phosphatase 214 H Total Protein 4.2 L Albumin 1.9 L Globulin 2.3 Albumin/Globulin Ratio 0.8 L Scl-70 Antibody Scl-70 Interpretation Fingerstick Blood Sugar Results: 150 Review of Systems - Review of Systems All systems: reviewed and no additional remarkable complaints except (as per HPI ) Assessment/Plan - Assessment and Plan (Free Text) 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 Plan: Neuro * Neurology consulted (Steve) - recs appreciated * Gabapentin 400 mg PO BID Cardio * RRR * BP stable * 03/29: Troponin + (0.2650, 0.1570) * 03/29: Heparin drip discontinued * Plavix 75 mg PO QD (d/c 04/03) * 04/06 discontinued Crestor 20 mg PO HS * Echo: grade 1 relaxation pattern and mild pulmonary hypertension * EKG: T Wave abnormality * 03/29: BNP 91254 * UE and LE US - negative for DVT Respiratory - possible pneumonia vs lupus pnuemonitis * 03/31/17 Intubated * 04/05/27 Extubated, on 3L nasal canula and saturating @100% - will reduce to 2L and monitor * CTA: b/l interstitial/alveolar infiltrate with superimposed multifocal eder consolidation, dilated main pulmonary artery * ABG 7.49/39/173/29.6 * Solu-medrol 125 mg IV Q6 reduced to 60 mg Q8h on 04/06/17 * Lasix 20 mg IV x1 dose on 04/06/17 Renal * Balance +344 * BUN/Cr 31/0.3 * Lasix 20 mg IV x1 dose on 04/06/17 Fluids, electrolytes, nutrition * Electrolytes WNL except for below * Cl 108 * Ca 8.2 * Albumin 1.9 Infectious disease * afebrile * WBC 9.0 * ID consulted (Cici) - recs appreciated * Sputum culture - no growth * Fluconazole 200 mg QD * 1g vanc Q12 * Aztreonam 1g IV Q8 * Doxy 100 IV Q12 * Mepron 1500 mg PO ACL * Flagyl 500 mg Q8 (end 04/03) * Tamiflu (end 04/04) Hematology - Anemia, thrombocytopenia * H&H: 8.9/26.8 * Plt: 10 * 04/05: PT/PTT/INR - 16.3/32/1.4; fibrinogen - 331 * 04/05: transfused 1U of platelets * Plavix 75 mg PO QD (d/c 04/03) * Heparin drip discontinued * Heme/Onc consulted (Thuy) - recs appreciated * 04/04: Bone marrow biopsy * 03/20: Folate >20, B12 >1000 GI * AST/ALT: 70/85 - possibly med side effect * Tbili: 1.1 * Zofran PRN Endocrine * monitor blood glucose * 03/24: HbA1c 4.7 * 03/20: AM Cortisol: 27.7, TSH: 1.65, Free T4: 2.22 * Solu-medrol 125 mg IV Q6 Integumentary * A&D ointment * Vaseline Rheumatology - History of Lupus and RA * Hydroxychloroquine 200 mg PO QD * Dr. Puckett consulted - recs appreciated Prophylaxis * Protonix 40 mg PO QD <LatefAltaf M - Last Filed: 04/06/17 18:23> CCU Objective - Vital Signs / Intake & Output Vital Signs (Last 4 hours): Vital Signs Temp Pulse Resp BP Pulse Ox 04/06/17 17:58 101 H 33 H 124/83 93 L 04/06/17 16:58 105 H 25 H 135/73 92 L 04/06/17 16:00 98.4 F 99 04/06/17 15:58 103 H 15 128/82 94 L 04/06/17 14:58 107 H 25 H 122/66 96 Intake and Output (Last 8hrs): Intake & Output 04/06/17 04/06/17 04/06/17 06:59 14:59 22:59 Intake Total 250 600 100 Output Total 210 680 450 Balance 40 -80 -350 Weight 214 lb 5 oz Intake: Intake, IV Amount 200 200 100 Left Antecubital Mid-Line 200 200 100 #2 Oral 50 400 Output: Urine 210 680 450 Urethral (Lewis) 210 680 450 Other: # Bowel Movements 0 - Medications Active Medications: Active Medications Generic Name Dose Route Start Last Admin Trade Name Freq PRN Reason Stop Dose Admin Albuterol/Ipratropium 3 ml 04/01/17 14:00 04/06/17 14:00 Duoneb 3 Mg/0.5 Mg (3 Ml) Ud INH 3 ml RQ6 IMAN Administration Atovaquone 1,500 mg 04/06/17 10:00 04/06/17 11:00 Mepron PO 1,500 mg DAILY IMAN Administration Emollient Ointment 5 gm 03/31/17 12:18 04/02/17 09:25 Vaseline Oint TOP 5 gm Q4 PRN Administration DRY SKIN Gabapentin 400 mg 03/23/17 10:00 04/06/17 11:00 Neurontin PO 400 mg BID IMAN Administration Hydroxychloroquine Sulfate 200 mg 03/28/17 10:00 04/06/17 11:01 Plaquenil PO 200 mg DAILY IMAN Administration Doxycycline Hyclate 100 mg/ 100 mls @ 100 mls/hr 03/29/17 14:00 04/06/17 14: 00 Sodium Chloride IVPB 100 mls/hr Q12H IMAN Administration Fluconazole 100 mls @ 100 mls/hr 03/30/17 10:00 04/06/17 10:00 Diflucan Iv 200 Mg/100 Ml Ns IVPB 100 mls/hr DAILY IMAN Administration Aztreonam 1 gm/ Sodium 100 mls @ 100 mls/hr 03/30/17 10:30 04/06/17 11:00 Chloride IVPB 100 mls/hr Q8H IMAN Administration Vancomycin HCl 1 gm/ Sodium 250 mls @ 133.333 mls/hr 04/01/17 21:30 04/02/17 20:29 Chloride IVPB 133.333 mls/hr Q12H IMAN Administration Methylprednisolone 125 mg 04/06/17 18:00 Solu-Medrol IV Q6 IMAN Ondansetron HCl 4 mg 03/20/17 15:00 03/20/17 15:01 Zofran Inj IVP 4 mg Q6H PRN Administration Nausea/Vomiting Pantoprazole Sodium 40 mg 04/06/17 10:00 04/06/17 11:01 Protonix Ec Tab PO 40 mg DAILY IMAN Administration - Patient Studies Lab Studies: Lab Studies 04/06/17 04/06/17 04/06/17 Range/Units 11:49 06:05 06:05 WBC 9.0 (4.8-10.8) K/uL RBC 3.03 L (3.80-5.20) Mil/uL Hgb 8.9 L (11.0-16.0) g/dL Hct 26.8 L (34.0-47.0) % MCV 88.6 (81.0-99.0) fL MCH 29.5 (27.0-31.0) pg MCHC 33.3 (33.0-37.0) g/dL RDW 18.7 H (11.5-14.5) % Plt Count 10 L* (130-400) K/uL MPV 10.3 (7.2-11.7) fL Neut % (Auto) 86.3 H (50.0-75.0) % Lymph % (Auto) 5.9 L (20.0-40.0) % Rains % (Auto) 7.8 (0.0-10.0) % Eos % (Auto) 0.0 (0.0-4.0) % Baso % (Auto) 0.0 (0.0-2.0) % Neut # 7.7 H (1.8-7.0) K/uL Lymph # 0.5 L (1.0-4.3) K/uL Rains # 0.7 (0.0-0.8) K/uL Eos # 0.0 (0.0-0.7) K/uL Baso # 0.0 (0.0-0.2) K/uL Neutrophils % (Manual) 86 H (50-75) % Band Neutrophils % 3 H (0-2) % Lymphocytes % (Manual) 3 L (20-40) % Monocytes % (Manual) 8 (0-10) % Toxic Granulation Present Platelet Estimate Markedly decreased L (NORMAL) Large Platelets Present Hypochromasia (manual) Slight Poikilocytosis (manual Slight Anisocytosis (manual) Slight Ovalocytes Slight ESR 23 H (0-20) mm/hr Sodium 139 (132-148) mmol/L Potassium 4.0 (3.6-5.2) mmol/L Chloride 108 H (98-107) mmol/L Carbon Dioxide 26 (22-30) mmol/L Anion Gap 8 L (10-20) BUN 31 H (7-17) mg/dL Creatinine 0.3 L (0.7-1.2) mg/dL Est GFR ( Amer) > 60 Est GFR (Non-Af Amer) > 60 POC Glucose (mg/dL) 79 (65-110) mg/dL Random Glucose 112 H (65-105) mg/dL Calcium 8.2 L (8.6-10.4) mg/dl Total Bilirubin 1.1 (0.2-1.3) mg/dL AST 70 H (14-36) U/L ALT 85 H (9-52) U/L Alkaline Phosphatase 214 H (38-126) U/L Total Protein 4.2 L (6.3-8.3) g/dL Albumin 1.9 L (3.5-5.0) g/dL Globulin 2.3 (2.2-3.9) gm/dL Albumin/Globulin Ratio 0.8 L (1.0-2.1) Scl-70 Antibody (<1.0) AI Scl-70 Interpretation (Negative) 04/06/17 04/05/17 04/03/17 Range/Units 05:26 23:43 14:36 WBC (4.8-10.8) K/uL RBC (3.80-5.20) Mil/uL Hgb (11.0-16.0) g/dL Hct (34.0-47.0) % MCV (81.0-99.0) fL MCH (27.0-31.0) pg MCHC (33.0-37.0) g/dL RDW (11.5-14.5) % Plt Count (130-400) K/uL MPV (7.2-11.7) fL Neut % (Auto) (50.0-75.0) % Lymph % (Auto) (20.0-40.0) % Rains % (Auto) (0.0-10.0) % Eos % (Auto) (0.0-4.0) % Baso % (Auto) (0.0-2.0) % Neut # (1.8-7.0) K/uL Lymph # (1.0-4.3) K/uL Rains # (0.0-0.8) K/uL Eos # (0.0-0.7) K/uL Baso # (0.0-0.2) K/uL Neutrophils % (Manual) (50-75) % Band Neutrophils % (0-2) % Lymphocytes % (Manual) (20-40) % Monocytes % (Manual) (0-10) % Toxic Granulation Platelet Estimate (NORMAL) Large Platelets Hypochromasia (manual) Poikilocytosis (manual Anisocytosis (manual) Ovalocytes ESR (0-20) mm/hr Sodium (132-148) mmol/L Potassium (3.6-5.2) mmol/L Chloride (98-107) mmol/L Carbon Dioxide (22-30) mmol/L Anion Gap (10-20) BUN (7-17) mg/dL Creatinine (0.7-1.2) mg/dL Est GFR ( Amer) Est GFR (Non-Af Amer) POC Glucose (mg/dL) 131 H 150 H (65-110) mg/dL Random Glucose (65-105) mg/dL Calcium (8.6-10.4) mg/dl Total Bilirubin (0.2-1.3) mg/dL AST (14-36) U/L ALT (9-52) U/L Alkaline Phosphatase (38-126) U/L Total Protein (6.3-8.3) g/dL Albumin (3.5-5.0) g/dL Globulin (2.2-3.9) gm/dL Albumin/Globulin Ratio (1.0-2.1) Scl-70 Antibody <1.0 (<1.0) AI Scl-70 Interpretation Negative (Negative) Laboratory Results - last 24 hr 04/03/17 04/05/17 04/06/17 14:36 23:43 05:26 WBC RBC Hgb Hct MCV MCH MCHC RDW Plt Count MPV Neut % (Auto) Lymph % (Auto) Rains % (Auto) Eos % (Auto) Baso % (Auto) Neut # Lymph # Rains # Eos # Baso # Neutrophils % (Manual) Band Neutrophils % Lymphocytes % (Manual) Monocytes % (Manual) Toxic Granulation Platelet Estimate Large Platelets Hypochromasia (manual) Poikilocytosis (manual Anisocytosis (manual) Ovalocytes ESR Sodium Potassium Chloride Carbon Dioxide Anion Gap BUN Creatinine Est GFR ( Amer) Est GFR (Non-Af Amer) POC Glucose (mg/dL) 150 H 131 H Random Glucose Calcium Total Bilirubin AST ALT Alkaline Phosphatase Total Protein Albumin Globulin Albumin/Globulin Ratio Scl-70 Antibody <1.0 Scl-70 Interpretation Negative 04/06/17 04/06/17 04/06/17 06:05 06:05 11:49 WBC 9.0 RBC 3.03 L Hgb 8.9 L Hct 26.8 L MCV 88.6 MCH 29.5 MCHC 33.3 RDW 18.7 H Plt Count 10 L* MPV 10.3 Neut % (Auto) 86.3 H Lymph % (Auto) 5.9 L Rains % (Auto) 7.8 Eos % (Auto) 0.0 Baso % (Auto) 0.0 Neut # 7.7 H Lymph # 0.5 L Rains # 0.7 Eos # 0.0 Baso # 0.0 Neutrophils % (Manual) 86 H Band Neutrophils % 3 H Lymphocytes % (Manual) 3 L Monocytes % (Manual) 8 Toxic Granulation Present Platelet Estimate Markedly decreased L Large Platelets Present Hypochromasia (manual) Slight Poikilocytosis (manual Slight Anisocytosis (manual) Slight Ovalocytes Slight ESR 23 H Sodium 139 Potassium 4.0 Chloride 108 H Carbon Dioxide 26 Anion Gap 8 L BUN 31 H Creatinine 0.3 L Est GFR ( Amer) > 60 Est GFR (Non-Af Amer) > 60 POC Glucose (mg/dL) 79 Random Glucose 112 H Calcium 8.2 L Total Bilirubin 1.1 AST 70 H ALT 85 H Alkaline Phosphatase 214 H Total Protein 4.2 L Albumin 1.9 L Globulin 2.3 Albumin/Globulin Ratio 0.8 L Scl-70 Antibody Scl-70 Interpretation Critical Care Progress Note - Nutrition Nutrition: Nutrition Category Date Time Status Regular Diet [DIET] Diets 04/06/17 Lunch Active Attending/Attestation - Attestation I have personally seen and examined this patient.: Yes I have fully participated in the care of the patient.: Yes I have reviewed all pertinent clinical information: Yes Notes (Text): 04/06/17 18:21 Today: March The Patient was seen and examined at the bedside, Medical records reviewed, and management issues were discussed and formulated with the house staff. I have reviewed all the relevant clinical, laboratory, hemodynamic, radiographic data and medications Events reviewed Pain issues, skin care, head of the bed elevation, glycemic control were addressed. Agree with above resident's assessment and treatment plans of care as transcribed in Dr. Luz note. Critically ill patient with acute hypoxemic respiratory failure, Respiratory acidosis from acuter pulmonary edema, Bilateral pneumonia, and severe sepsis SLE on large does IV steroids Severe thrombocyutopenia, S/P bone marrow biopsy Successfully extubated yesterday Discussed with the family in details diagnosis, treatment plans and alternatives , Code status: Full code Total critical care time 48 minutes
[2017-04-06 08:17] LABS: BANDS 3 % (0-2); MONOCYTE 8 % (0-10); TOTAL CELLS COUNTED 100
[2017-04-06 08:18] LABS: LYMPHOCYTE 3 % (20-40); NEUTROPHIL 86 % (50-75); PLATELET ESTIMATE MARKEDLY DECREASED (NORMAL)
[2017-04-06 08:19] LABS: ANISOCYTOSIS SLIGHT; HYPOCHROMIC SLIGHT; LARGE PLATELETS PRESENT; POIKILOCYTOSIS SLIGHT
[2017-04-06 08:21] LABS: OVALOCYTES SLIGHT
[2017-04-06 08:23] LABS: TOXIC GRANULATION PRESENT
--- NOTE | 2017-04-06 09:05 | CP.PCM.PN ---
Subjective - Date & Time of Evaluation Date of Evaluation: 04/06/17 Time of Evaluation: 08:45 - Subjective Subjective: Patient was extubated yesterday afternoon. She did well overnight This morning she was AAO x 3, verbal and communicative. Answering questions appropriately. She was not in any acute distress. On exam she appears to have EOMI, she is able to squeeze my hands bilaterally and able to flex and extend elbows and elevate arms. With reguards to lower extremity she is currently with pressure boots. The patient denied shortness of breath, denied chest pain, denied abdominal pain , denied palpitations. Platelet count is still only 10K. The Hgb is 8.9 this AM. As mentioned previously patient had a bone marrow biopsy, the result of which is pending at this time Objective - Vital Signs/Intake and Output Vital Signs (last 24 hours): Temp Pulse Resp BP Pulse Ox 98.2 F 101 H 19 121/77 99 04/06/17 08:00 04/06/17 07:58 04/06/17 07:58 04/06/17 07:58 04/06/17 08:00 Intake and Output: 04/06/17 04/06/17 06:59 18:59 Intake Total 350 Output Total 335 60 Balance 15 -60 - Medications Medications: Current Medications Acetaminophen (Tylenol 325mg Tab) 650 mg PO Q6 PRN PRN Reason: Pain, moderate (4-7) Albuterol/Ipratropium (Duoneb 3 Mg/0.5 Mg (3 Ml) Ud) 3 ml INH RQ6 [facility] Last Admin: 04/06/17 08:33 Dose: 3 ml Atovaquone (Mepron) 1,500 mg PO ACL [facility] Last Admin: 04/05/17 12:27 Dose: 1,500 mg Emollient Ointment (Vaseline Oint) 5 gm TOP Q4 PRN PRN Reason: DRY SKIN Last Admin: 04/02/17 09:25 Dose: 5 gm Gabapentin (Neurontin) 400 mg PO BID [facility] Last Admin: 04/05/17 17:55 Dose: Not Given Hydroxychloroquine Sulfate (Plaquenil) 200 mg PO DAILY [facility] Last Admin: 04/05/17 09:48 Dose: 200 mg Doxycycline Hyclate 100 mg/ (Sodium Chloride) 100 mls @ 100 mls/hr IVPB Q12H [facility] Last Admin: 04/06/17 02:06 Dose: 100 mls/hr Fluconazole (Diflucan Iv 200 Mg/100 Ml Ns) 100 mls @ 100 mls/hr IVPB DAILY [facility] Last Admin: 04/05/17 10:00 Dose: 100 mls/hr Aztreonam 1 gm/ Sodium (Chloride) 100 mls @ 100 mls/hr IVPB Q8H [facility] Last Admin: 04/06/17 02:37 Dose: 100 mls/hr Propofol (Diprivan) 1,000 mg in 100 mls @ 2.494 mls/hr IV .Q24H PRN; Protocol; 5 MCG/KG/MIN PRN Reason: TITRATE PER MD ORDER Last Titration: 04/05/17 10:00 Dose: 0 mcg/kg/min, 0 mls/hr Vancomycin HCl 1 gm/ Sodium (Chloride) 250 mls @ 133.333 mls/hr IVPB Q12H [facility] Last Admin: 04/02/17 20:29 Dose: 133.333 mls/hr Methylprednisolone (Solu-Medrol) 125 mg IV Q6 [facility] Last Admin: 04/06/17 05:44 Dose: 125 mg Ondansetron HCl (Zofran Inj) 4 mg IVP Q6H PRN PRN Reason: Nausea/Vomiting Last Admin: 03/20/17 15:01 Dose: 4 mg Rosuvastatin Calcium (Crestor) 20 mg PO HS [facility] Last Admin: 04/05/17 21:27 Dose: 20 mg - Labs Labs: 04/06/17 06:05 04/06/17 06:05 PT 16.3 SECONDS (9.7-12.2) H 04/05/17 10:54 INR 1.4 04/05/17 10:54 APTT 32 SECONDS (21-34) 04/05/17 10:54 - Constitutional Appears: No Acute Distress, Chronically Ill - Head Exam Head Exam: NORMAL INSPECTION, NORMOCEPHALIC - Eye Exam Eye Exam: EOMI, Normal appearance - ENT Exam ENT Exam: Mucous Membranes Moist - Respiratory Exam Respiratory Exam: Clear to Ausculation Bilateral, NORMAL BREATHING PATTERN - Cardiovascular Exam Cardiovascular Exam: REGULAR RHYTHM - GI/Abdominal Exam GI & Abdominal Exam: Soft, Normal Bowel Sounds - Neurological Exam Neurological Exam: Alert, Awake, CN II-XII Intact, Oriented x3 Neuro motor strength exam: Left Upper Extremity: 5, Right Upper Extremity: 5 - Psychiatric Exam Psychiatric exam: Normal Mood - Skin Skin Exam: Dry, Warm Assessment and Plan - Assessment and Plan (Free Text) Assessment: Assessment and Plan (1) Acute respiratory failure Assessment & Plan: 04/06: Patient was successfuly extubated yesterday. She is not in any distress. There wasn't a CXRAY this AM. 04/05: Decreasing platelet count. Remains intubated at this time. Cultures are negative at the moment. 04/04: Remains intubated at this time and on sedation. The CXRAY this AM appeared to have some improvment when compared to previous. Patient was intubated 03/31 given respiratory distress. 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 Possible bronchscopy or broncholavag r/o infection. Patient is thrombocytopenia. Plavix discontinued today. I discussed with neurology prior to discontinuation given worsening thrombocytopenia and consideration for bronch. He does not agree with abnormal brain MRI given patient does not clinically present with symptoms. Mepron 1500mg PO ACL (cover for PCP in light of immunosuppression from lupus therapy) Fluconazole 200mg IVPB daily (since 03/30) Aztreonam 1 gram IVPB Q8H (since 03/30) Doxycycline 100mg IVQ12H (since 03/29) Tamiflu 75mg PO BID (03/30-04/04) Influenza: negative Legionella: negative Mycoplasma IgM: negative ASO: negative Will check HIV given patient is on group home suppression therapy prior for lupus. (2) Pneumonitis Assessment & Plan: secondary to lupus likely. (3) Overlap syndrome Status: Suspected (4) History of lupus Assessment & Plan: 04/04: Currently reciving solumedrol 125 IV Q6hrs and remains on Plaqunil 200 daily h/o lupus on leflunomide and hydroxychloroquine X17 years * Plaquenil 200mg PO daily (started 03/28) * Was increase Solumedrol 250mg IVP Q6H (04/02-04/03) (total 1 gram) * Solumedrol 40mg IV Q12 (03/20-03/31) * Solumedrol 40mg IVP Q 6H (03/31) * Serology: * DRE: positive * Speckled * SS-A positive Negative for SS-B * BABY COUNSELOR Ab: >8.0 positive * Double stranded DNA <4 * Complement 3 and 4 Normal (03/22) * Anticardiolipin <12 (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 Pillai 04/02 Hematology: Dr. Olivia Daley on the case help appreciated Direct kimo negative low retic index; hypoproliferative erythroid response unlikely acute hemolysis anemia of chronic disease immunosuppression contribution on marrow Status: Chronic (6) Thrombocytopenia Assessment & Plan: 04/06: Platelet count is only 10K today, had 1 unit of platelets yesterday. Pending results on bone marrow biopsy. Remains on IV steroids 04/05: ICU is tranfusing platelets. Hgb is 9.5 today. Remains off of plavix and ASA. She just had a bone marrow biopsy done by hematology/oncology 04/04: Platelet count again slightly decreased to 15K. Currently off of Plavix if counts do not rebound, will need bone marrow evaluation per heme-onc when clinically stable per latest heme-onc note 04/03-->Discussed with Dr. Garibay, in light of worsening thrombocytopenia, discontinue Plavix. Patient had been on Plavix for abnormal brain MRI previously. 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 Neurology last noted from , neurologically stable. C/w Neurotin 400mg PO BID with PT and DVT ppX Workup: MRI of brain as acute to subacute process of infarct in mid pontine region, does not show clinical picture suggestive of ischemic process affecting pontine region. possible artifactual. Normal EEG. 03/22 Lumbar spine MRI- Multilevel degenerative spondylosis most significantly affecting the L3-L4 and L2-L3 levels and to a lesser degree L4-L5 levels. 03/22 Thoracic spine MRI- moderate to fairly significant degenerative spondylosis of the cervical spine seen on the sagittal counting sequence with the moderate canal stenosis as well as a cord compression most significant at at the C4-C5 and C5-C6 levels. Dr Olsen (spinal plastic surgery specialist) for evaluation of MRI and recommendation , help appreciated- Dr Olsen saw and examined patient. No acute surgical intervention at time of assessment Note: patient has been on dye colorist formulator immunosuppression for lupus * Lipid panel: low cholestrol, low TG, very low HDL; LDL: normal Hgba1c: 4.7 (9) Edema Assessment & Plan: 03/29/17: venous doppler: negative for DVT b/l; was previously on diuretic therapy as outpatient (10) Elevated troponin Assessment & Plan: Dr. Medellin (cardiolology) was consulted. Likely demand ischemia. Previous echocardiogram reveals normal left ventricular function. The patient is currently asymptomatic. If normalizes can consider d/c heparin. add antiplatelet therapy. (11) CHF (congestive heart failure) Assessment & Plan: suspecting diastolic heart failure anticoagulation contraindicated secondary to thrombocytopenia Crestor 20mg POHS off antihypertensive therapy (blood pressure is normal limits) Echocardiogram: left ventricle systolic function is normal/ EF: 75%. Abnormal relaxation pattern. Mild pulm hypertension (12) Prophylactic measure Assessment & Plan: Anticoagulation contraindicated secondary to thrombocytopenia d/c Plavix, discussed with Dr. garibay in light of worsening thrombocytopenia
[2017-04-06] MEDS: Fluconazole IV 200mg/100 ml NS 100 ML IVPB SCH (10:00)
--- NOTE | 2017-04-06 10:44 | PN ---
DATE: 04/06/2017 TIME OF EVALUATION: 7:20 a.m. NEUROLOGIC PROBLEM: Status post respiratory arrest and extubation. PHYSICAL EXAMINATION: VITAL SIGNS: Blood pressure 118/73, mean arterial pressure of 84, respiratory rate is 16, and temperature afebrile. NEUROLOGIC: The patient is more awake, alert, and oriented to person and place. Cheerful talking. She follows 1-to 2-step command. Still leg weakness, left more than her right side. Left leg is externally rotated, probably due to the procedure, which she went through. LABORATORY DATA: Today's platelets are 10. PT is 16.3. From neurological point of view, continue the present management. I will follow her closely. Andres Wilson MD
[2017-04-06] MEDS: Atovaquone 750 mg/5 ml Susp UD PO SCH (11:00)
[2017-04-06] MEDS: Pantoprazole 40 mg EC Tab PO SCH (11:01)
--- NOTE | 2017-04-06 15:09 | CP.PCM.PN ---
Subjective - Date & Time of Evaluation Date of Evaluation: 04/06/17 Time of Evaluation: 11:00 - Subjective Subjective: Extubated overnight No complaints. Prelim flow cytometery on bone marrow negative for clonal/malignant cells. Objective - Vital Signs/Intake and Output Vital Signs (last 24 hours): Temp Pulse Resp BP Pulse Ox 98.2 F 105 H 25 H 113/74 97 04/06/17 12:00 04/06/17 12:58 04/06/17 12:58 04/06/17 12:58 04/06/17 12:58 Intake and Output: 04/06/17 04/06/17 06:59 18:59 Intake Total 350 200 Output Total 335 250 Balance 15 -50 - Medications Medications: Current Medications Albuterol/Ipratropium (Duoneb 3 Mg/0.5 Mg (3 Ml) Ud) 3 ml INH RQ6 [facility] Last Admin: 04/06/17 14:00 Dose: 3 ml Atovaquone (Mepron) 1,500 mg PO DAILY [facility] Last Admin: 04/06/17 11:00 Dose: 1,500 mg Emollient Ointment (Vaseline Oint) 5 gm TOP Q4 PRN PRN Reason: DRY SKIN Last Admin: 04/02/17 09:25 Dose: 5 gm Gabapentin (Neurontin) 400 mg PO BID [facility] Last Admin: 04/06/17 11:00 Dose: 400 mg Hydroxychloroquine Sulfate (Plaquenil) 200 mg PO DAILY [facility] Last Admin: 04/06/17 11:01 Dose: 200 mg Doxycycline Hyclate 100 mg/ (Sodium Chloride) 100 mls @ 100 mls/hr IVPB Q12H [facility] Last Admin: 04/06/17 14:00 Dose: 100 mls/hr Fluconazole (Diflucan Iv 200 Mg/100 Ml Ns) 100 mls @ 100 mls/hr IVPB DAILY [facility] Last Admin: 04/06/17 10:00 Dose: 100 mls/hr Aztreonam 1 gm/ Sodium (Chloride) 100 mls @ 100 mls/hr IVPB Q8H [facility] Last Admin: 04/06/17 11:00 Dose: 100 mls/hr Vancomycin HCl 1 gm/ Sodium (Chloride) 250 mls @ 133.333 mls/hr IVPB Q12H [facility] Last Admin: 04/02/17 20:29 Dose: 133.333 mls/hr Methylprednisolone (Solu-Medrol) 60 mg IV Q8 [facility] Last Admin: 04/06/17 14:00 Dose: 60 mg Ondansetron HCl (Zofran Inj) 4 mg IVP Q6H PRN PRN Reason: Nausea/Vomiting Last Admin: 03/20/17 15:01 Dose: 4 mg Pantoprazole Sodium (Protonix Ec Tab) 40 mg PO DAILY [facility] Last Admin: 04/06/17 11:01 Dose: 40 mg - Labs Labs: 04/06/17 06:05 04/06/17 06:05 PT 16.3 SECONDS (9.7-12.2) H 04/05/17 10:54 INR 1.4 04/05/17 10:54 APTT 32 SECONDS (21-34) 04/05/17 10:54 - Head Exam Head Exam: ATRAUMATIC - Eye Exam Eye Exam: Normal appearance - ENT Exam ENT Exam: Mucous Membranes Dry - Respiratory Exam Respiratory Exam: NORMAL BREATHING PATTERN - Cardiovascular Exam Cardiovascular Exam: +S1, +S2 - GI/Abdominal Exam GI & Abdominal Exam: Normal Bowel Sounds Assessment and Plan (1) Thrombocytopenia Assessment & Plan: prelim bone marrow negative for malignancy awaiting core biopsy results if no evidence of malignancy; likely immune mediated from SLE not responding to steroids will discuss with rheumatology if would benefit from further immunosuppression Status: Acute (2) Anemia Assessment & Plan: chronic disease likely element of hemolysis from SLE on steroids transfusion support prn Status: Acute (3) Coagulopathy Assessment & Plan: nutritiona Status: Acute
--- NOTE | 2017-04-06 15:12 | CP.PCM.PN ---
Subjective - Date & Time of Evaluation Date of Evaluation: 04/05/17 Time of Evaluation: 10:00 - Subjective Subjective: Vented s/p bone marrow biopsy Objective - Vital Signs/Intake and Output Vital Signs (last 24 hours): Temp Pulse Resp BP Pulse Ox 98.2 F 105 H 25 H 113/74 97 04/06/17 12:00 04/06/17 12:58 04/06/17 12:58 04/06/17 12:58 04/06/17 12:58 Intake and Output: 04/06/17 04/06/17 06:59 18:59 Intake Total 350 200 Output Total 335 250 Balance 15 -50 - Medications Medications: Current Medications Albuterol/Ipratropium (Duoneb 3 Mg/0.5 Mg (3 Ml) Ud) 3 ml INH RQ6 [facility] Last Admin: 04/06/17 14:00 Dose: 3 ml Atovaquone (Mepron) 1,500 mg PO DAILY [facility] Last Admin: 04/06/17 11:00 Dose: 1,500 mg Emollient Ointment (Vaseline Oint) 5 gm TOP Q4 PRN PRN Reason: DRY SKIN Last Admin: 04/02/17 09:25 Dose: 5 gm Gabapentin (Neurontin) 400 mg PO BID [facility] Last Admin: 04/06/17 11:00 Dose: 400 mg Hydroxychloroquine Sulfate (Plaquenil) 200 mg PO DAILY [facility] Last Admin: 04/06/17 11:01 Dose: 200 mg Doxycycline Hyclate 100 mg/ (Sodium Chloride) 100 mls @ 100 mls/hr IVPB Q12H [facility] Last Admin: 04/06/17 14:00 Dose: 100 mls/hr Fluconazole (Diflucan Iv 200 Mg/100 Ml Ns) 100 mls @ 100 mls/hr IVPB DAILY [facility] Last Admin: 04/06/17 10:00 Dose: 100 mls/hr Aztreonam 1 gm/ Sodium (Chloride) 100 mls @ 100 mls/hr IVPB Q8H [facility] Last Admin: 04/06/17 11:00 Dose: 100 mls/hr Vancomycin HCl 1 gm/ Sodium (Chloride) 250 mls @ 133.333 mls/hr IVPB Q12H [facility] Last Admin: 04/02/17 20:29 Dose: 133.333 mls/hr Methylprednisolone (Solu-Medrol) 60 mg IV Q8 [facility] Last Admin: 04/06/17 14:00 Dose: 60 mg Ondansetron HCl (Zofran Inj) 4 mg IVP Q6H PRN PRN Reason: Nausea/Vomiting Last Admin: 03/20/17 15:01 Dose: 4 mg Pantoprazole Sodium (Protonix Ec Tab) 40 mg PO DAILY [facility] Last Admin: 04/06/17 11:01 Dose: 40 mg - Labs Labs: 04/06/17 06:05 04/06/17 06:05 PT 16.3 SECONDS (9.7-12.2) H 04/05/17 10:54 INR 1.4 04/05/17 10:54 APTT 32 SECONDS (21-34) 04/05/17 10:54 - Head Exam Head Exam: ATRAUMATIC - Eye Exam Eye Exam: Normal appearance - ENT Exam ENT Exam: Mucous Membranes Dry - Respiratory Exam Respiratory Exam: Decreased Breath Sounds - GI/Abdominal Exam GI & Abdominal Exam: Normal Bowel Sounds Assessment and Plan (1) Thrombocytopenia Assessment & Plan: s/p bone marrow biopsy ?infiltrative bone marrow pathology vs immune/SLE related Status: Acute (2) Anemia Assessment & Plan: chronic disease immune mediated f/u bone marrow on steroids transfusion support PRN Status: Acute (3) Coagulopathy Status: Acute
--- NOTE | 2017-04-06 17:28 | CP.PCM.PN ---
Subjective - Date & Time of Evaluation Date of Evaluation: 04/06/17 Time of Evaluation: 10:00 - Subjective Subjective: AFEB ON VANCO AZACTAM TROUGH LEVEL ORDERED EXTUBATED Objective - Vital Signs/Intake and Output Vital Signs (last 24 hours): Temp Pulse Resp BP Pulse Ox 98.4 F 105 H 25 H 135/73 92 L 04/06/17 16:00 04/06/17 16:58 04/06/17 16:58 04/06/17 16:58 04/06/17 16:58 Intake and Output: 04/06/17 04/06/17 06:59 18:59 Intake Total 350 700 Output Total 335 590 Balance 15 110 - Medications Medications: Current Medications Albuterol/Ipratropium (Duoneb 3 Mg/0.5 Mg (3 Ml) Ud) 3 ml INH RQ6 [facility] Last Admin: 04/06/17 14:00 Dose: 3 ml Atovaquone (Mepron) 1,500 mg PO DAILY [facility] Last Admin: 04/06/17 11:00 Dose: 1,500 mg Emollient Ointment (Vaseline Oint) 5 gm TOP Q4 PRN PRN Reason: DRY SKIN Last Admin: 04/02/17 09:25 Dose: 5 gm Gabapentin (Neurontin) 400 mg PO BID [facility] Last Admin: 04/06/17 11:00 Dose: 400 mg Hydroxychloroquine Sulfate (Plaquenil) 200 mg PO DAILY [facility] Last Admin: 04/06/17 11:01 Dose: 200 mg Doxycycline Hyclate 100 mg/ (Sodium Chloride) 100 mls @ 100 mls/hr IVPB Q12H [facility] Last Admin: 04/06/17 14:00 Dose: 100 mls/hr Fluconazole (Diflucan Iv 200 Mg/100 Ml Ns) 100 mls @ 100 mls/hr IVPB DAILY [facility] Last Admin: 04/06/17 10:00 Dose: 100 mls/hr Aztreonam 1 gm/ Sodium (Chloride) 100 mls @ 100 mls/hr IVPB Q8H [facility] Last Admin: 04/06/17 11:00 Dose: 100 mls/hr Vancomycin HCl 1 gm/ Sodium (Chloride) 250 mls @ 133.333 mls/hr IVPB Q12H [facility] Last Admin: 04/02/17 20:29 Dose: 133.333 mls/hr Methylprednisolone (Solu-Medrol) 60 mg IV Q8 [facility] Last Admin: 04/06/17 14:00 Dose: 60 mg Ondansetron HCl (Zofran Inj) 4 mg IVP Q6H PRN PRN Reason: Nausea/Vomiting Last Admin: 03/20/17 15:01 Dose: 4 mg Pantoprazole Sodium (Protonix Ec Tab) 40 mg PO DAILY [facility] Last Admin: 04/06/17 11:01 Dose: 40 mg - Labs Labs: 04/06/17 06:05 04/06/17 06:05 PT 16.3 SECONDS (9.7-12.2) H 04/05/17 10:54 INR 1.4 04/05/17 10:54 APTT 32 SECONDS (21-34) 04/05/17 10:54 - Constitutional Appears: Non-toxic, Cachectic, Chronically Ill - Head Exam Head Exam: NORMOCEPHALIC - Eye Exam Eye Exam: absent: Scleral icterus - ENT Exam ENT Exam: Mucous Membranes Dry - Neck Exam Neck Exam: absent: Lymphadenopathy - Respiratory Exam Respiratory Exam: Prolonged Expiratory Phase - Cardiovascular Exam Cardiovascular Exam: REGULAR RHYTHM - GI/Abdominal Exam GI & Abdominal Exam: Distended - Rectal Exam Rectal Exam: Deferred - Exam Exam: NORMAL INSPECTION Assessment and Plan (1) Anemia Status: Acute (2) CHF (congestive heart failure) Status: Chronic (3) Coagulopathy Status: Acute (4) Fever Status: Acute (5) Hypoglycemia Status: Acute (6) Leg pain, bilateral Status: Acute (7) Sepsis Status: Acute (8) Thrombocytopenia Status: Acute - Assessment and Plan (Free Text) Assessment: Currently reciving solumedrol 125 IV Q6hrs and remains on Plaqunil 200 daily h/o lupus on leflunomide and hydroxychloroquine X17 years * Plaquenil 200mg PO daily (started 03/28) * Was increase Solumedrol 250mg IVP Q6H (04/02-04/03) (total 1 gram) * Solumedrol 40mg IV Q12 (03/20-03/31) * Solumedrol 40mg IVP Q 6H (03/31) * Serology: * DRE: positive * Speckled * SS-A positive Negative for SS-B * SURVEY DATA TECHNICIAN Ab: >8.0 positive * Double stranded DNA <4 * Complement 3 and 4 Normal (03/22) * Anticardiolipin <12 DR JOHN FARLEY
[2017-04-07] MEDS: Albuterol-Ipratrop 3 mg / 0.5 (3 ml) UD INH SCH ×4 (01:58→19:50)
[2017-04-07] MEDS: Aztreonam 1 GM in Sodium Chloride 0.9% 100 ML IVPB SCH ×3 (02:07→17:58)
[2017-04-07 06:53] LABS: BASO % 0.1 % (0.0-2.0); HEMOGLOBIN 8.4 g/dL (11.0-16.0); LYMPH # 0.2 K/uL (1.0-4.3); LYMPH % 1.6 % (20.0-40.0); MEAN CELL VOLUME 89.5 fL (81.0-99.0); MEAN CORPUSCULAR HEMOGLOBIN 29.7 pg (27.0-31.0); MEAN CORPUSCULAR HGB CONC 33.2 g/dL (33.0-37.0); MEAN PLATELET VOLUME 10.8 fL (7.2-11.7); MONO # 0.7 K/uL (0.0-0.8); MONO % 7.2 % (0.0-10.0); NEUT # 9.2 K/uL (1.8-7.0); NEUT % 91.1 % (50.0-75.0); RBC 2.83 Mil/uL (3.80-5.20); RED CELL DISTRIBUTION WIDTH 19.3 % (11.5-14.5); WHITE BLOOD COUNT 10.1 K/uL (4.8-10.8)
[2017-04-07 06:59] LABS: PLATELET COUNT 13 K/uL (130-400)
--- NOTE | 2017-04-07 07:27 | CP.CCUPN ---
<Thais Luz - Last Filed: 04/07/17 10:34> CCU Subjective - Physician Review Subjective (Free Text): 04/07/17 07:23 Patient seen and examined at bedside. Patient resting comfortably in bed with no new complaints at this time. No acute events over night. Patient denies chest pain, SOB, palpitations, abdominal pain, n/v/d. CCU Objective - Vital Signs / Intake & Output Vital Signs (Last 4 hours): Vital Signs Temp Pulse Resp BP Pulse Ox 04/07/17 07:00 98 H 20 98 04/07/17 06:58 135/84 04/07/17 06:00 98 H 22 100 04/07/17 05:58 136/79 04/07/17 05:00 98 H 14 93 L 04/07/17 04:58 134/85 04/07/17 04:00 98 F 99 H 18 96 04/07/17 03:58 134/79 Intake and Output (Last 8hrs): Intake & Output 04/06/17 04/07/17 04/07/17 22:59 06:59 14:59 Intake Total 300 890 Output Total 750 1100 100 Balance -450 -210 -100 Weight 206 lb 1 oz Intake: Intake, IV Amount 200 200 Left Antecubital Mid-Line 200 200 #2 Oral 100 390 Blood Product 0 300 Apheresis Plts Acda Lr 0 300 2nd Con Unit [id number] Output: Urine 750 1100 100 Urethral (Lewis) 750 1100 100 Other: # Bowel Movements 1 - Physical Exam Head: Positive for: Atraumatic, Normocephalic Pupils: Positive for: PERRL Extroacular Muscles: Positive for: EOMI Conjunctiva: Positive for: Normal Mouth: Positive for: Moist Mucous Membranes Neck: Negative for: JVD Respiratory/Chest: Positive for: Clear to Auscultation, Good Air Exchange, Other (on Nasal canula 3L ). Negative for: Respiratory Distress, Accessory Muscle Use, Wheezes, Rales, Rhonchi Cardiovascular: Positive for: Regular Rate and Rhythm, Normal S1, S2. Negative for: Tachycardic, Bradycardic Abdomen: Positive for: Normal Bowel Sounds. Negative for: Tenderness, Distention, Peritoneal Signs Upper Extremity: Positive for: Normal Inspection Lower Extremity: Positive for: Edema. Negative for: Tenderness Neurological: Positive for: GCS=15, Speech Normal Skin: Positive for: Warm, Dry. Negative for: Rashes Psychiatric: Positive for: Alert, Oriented x 3, Normal Insight, Normal Concentration - Medications Active Medications: Active Medications Generic Name Dose Route Start Last Admin Trade Name Freq PRN Reason Stop Dose Admin Albuterol/Ipratropium 3 ml 04/01/17 14:00 04/07/17 01:58 Duoneb 3 Mg/0.5 Mg (3 Ml) Ud INH 3 ml RQ6 IMAN Administration Atovaquone 1,500 mg 04/06/17 10:00 04/06/17 11:00 Mepron PO 1,500 mg DAILY IMAN Administration Emollient Ointment 5 gm 03/31/17 12:18 04/02/17 09:25 Vaseline Oint TOP 5 gm Q4 PRN Administration DRY SKIN Gabapentin 400 mg 03/23/17 10:00 04/06/17 18:35 Neurontin PO 400 mg BID IMAN Administration Hydroxychloroquine Sulfate 200 mg 03/28/17 10:00 04/06/17 11:01 Plaquenil PO 200 mg DAILY IMAN Administration Doxycycline Hyclate 100 mg/ 100 mls @ 100 mls/hr 03/29/17 14:00 04/07/17 02: 05 Sodium Chloride IVPB 100 mls/hr Q12H IMAN Administration Fluconazole 100 mls @ 100 mls/hr 03/30/17 10:00 04/06/17 10:00 Diflucan Iv 200 Mg/100 Ml Ns IVPB 100 mls/hr DAILY IMAN Administration Aztreonam 1 gm/ Sodium 100 mls @ 100 mls/hr 03/30/17 10:30 04/07/17 02:07 Chloride IVPB 100 mls/hr Q8H IMAN Administration Vancomycin HCl 1 gm/ Sodium 250 mls @ 133.333 mls/hr 04/01/17 21:30 04/02/17 20:29 Chloride IVPB 133.333 mls/hr Q12H IMAN Administration Methylprednisolone 125 mg 04/06/17 18:00 04/07/17 05:43 Solu-Medrol IV 125 mg Q6 IMAN Administration Ondansetron HCl 4 mg 03/20/17 15:00 03/20/17 15:01 Zofran Inj IVP 4 mg Q6H PRN Administration Nausea/Vomiting Pantoprazole Sodium 40 mg 04/06/17 10:00 04/06/17 11:01 Protonix Ec Tab PO 40 mg DAILY IMAN Administration - Patient Studies Lab Studies: Lab Studies 04/07/17 04/07/17 04/06/17 Range/Units 06:43 04:54 23:30 WBC 10.1 (4.8-10.8) K/uL RBC 2.83 L (3.80-5.20) Mil/uL Hgb 8.4 L (11.0-16.0) g/dL Hct 25.4 L (34.0-47.0) % MCV 89.5 (81.0-99.0) fL MCH 29.7 (27.0-31.0) pg MCHC 33.2 (33.0-37.0) g/dL RDW 19.3 H (11.5-14.5) % Plt Count 13 L* (130-400) K/uL MPV 10.8 (7.2-11.7) fL Neut % (Auto) 91.1 H (50.0-75.0) % Lymph % (Auto) 1.6 L (20.0-40.0) % [place] % (Auto) 7.2 (0.0-10.0) % Eos % (Auto) 0.0 (0.0-4.0) % Baso % (Auto) 0.1 (0.0-2.0) % Neut # 9.2 H (1.8-7.0) K/uL Lymph # 0.2 L (1.0-4.3) K/uL [place] # 0.7 (0.0-0.8) K/uL Eos # 0.0 (0.0-0.7) K/uL Baso # 0.0 (0.0-0.2) K/uL Neutrophils % (Manual) (50-75) % Band Neutrophils % (0-2) % Lymphocytes % (Manual) (20-40) % Monocytes % (Manual) (0-10) % Toxic Granulation Platelet Estimate (NORMAL) Large Platelets Hypochromasia (manual) Poikilocytosis (manual Anisocytosis (manual) Ovalocytes ESR (0-20) mm/hr POC Glucose (mg/dL) 151 H 169 H (65-110) mg/dL 04/06/17 04/06/17 04/06/17 Range/Units 17:39 11:49 06:05 WBC (4.8-10.8) K/uL RBC (3.80-5.20) Mil/uL Hgb (11.0-16.0) g/dL Hct (34.0-47.0) % MCV (81.0-99.0) fL MCH (27.0-31.0) pg MCHC (33.0-37.0) g/dL RDW (11.5-14.5) % Plt Count (130-400) K/uL MPV (7.2-11.7) fL Neut % (Auto) (50.0-75.0) % Lymph % (Auto) (20.0-40.0) % [place] % (Auto) (0.0-10.0) % Eos % (Auto) (0.0-4.0) % Baso % (Auto) (0.0-2.0) % Neut # (1.8-7.0) K/uL Lymph # (1.0-4.3) K/uL [place] # (0.0-0.8) K/uL Eos # (0.0-0.7) K/uL Baso # (0.0-0.2) K/uL Neutrophils % (Manual) 86 H (50-75) % Band Neutrophils % 3 H (0-2) % Lymphocytes % (Manual) 3 L (20-40) % Monocytes % (Manual) 8 (0-10) % Toxic Granulation Present Platelet Estimate Markedly decreased L (NORMAL) Large Platelets Present Hypochromasia (manual) Slight Poikilocytosis (manual Slight Anisocytosis (manual) Slight Ovalocytes Slight ESR 23 H (0-20) mm/hr POC Glucose (mg/dL) 184 H 79 (65-110) mg/dL Laboratory Results - last 24 hr 04/06/17 04/06/17 04/06/17 06:05 11:49 17:39 WBC RBC Hgb Hct MCV MCH MCHC RDW Plt Count MPV Neut % (Auto) Lymph % (Auto) [place] % (Auto) Eos % (Auto) Baso % (Auto) Neut # Lymph # [place] # Eos # Baso # Neutrophils % (Manual) 86 H Band Neutrophils % 3 H Lymphocytes % (Manual) 3 L Monocytes % (Manual) 8 Toxic Granulation Present Platelet Estimate Markedly decreased L Large Platelets Present Hypochromasia (manual) Slight Poikilocytosis (manual Slight Anisocytosis (manual) Slight Ovalocytes Slight ESR 23 H POC Glucose (mg/dL) 79 184 H 04/06/17 04/07/17 04/07/17 23:30 04:54 06:43 WBC 10.1 RBC 2.83 L Hgb 8.4 L Hct 25.4 L MCV 89.5 MCH 29.7 MCHC 33.2 RDW 19.3 H Plt Count 13 L* MPV 10.8 Neut % (Auto) 91.1 H Lymph % (Auto) 1.6 L [place] % (Auto) 7.2 Eos % (Auto) 0.0 Baso % (Auto) 0.1 Neut # 9.2 H Lymph # 0.2 L [place] # 0.7 Eos # 0.0 Baso # 0.0 Neutrophils % (Manual) Band Neutrophils % Lymphocytes % (Manual) Monocytes % (Manual) Toxic Granulation Platelet Estimate Large Platelets Hypochromasia (manual) Poikilocytosis (manual Anisocytosis (manual) Ovalocytes ESR POC Glucose (mg/dL) 169 H 151 H Fingerstick Blood Sugar Results: 169 Review of Systems - Review of Systems All systems: reviewed and no additional remarkable complaints except (as per HPI ) Critical Care Progress Note - Nutrition Nutrition: Nutrition Category Date Time Status Regular Diet [DIET] Diets 04/06/17 Lunch Active Assessment/Plan - Assessment and Plan (Free Text) Assessment: 61F with acute hypoxemic respiratory failure, respiratory acidosis from acute pulmonary edema, bilateral pneumonia, and severe sepsis - improving Plan: Disposition: Patient stable for transfer to regular floor. Neuro * Neurology consulted (Steve) - recs appreciated * Needs visual field exam per Dr. Puckett * Gabapentin 400 mg PO BID Cardio * RRR * BP stable * 03/29: Troponin + (0.2650, 0.1570) * 03/29: Heparin drip discontinued * Plavix 75 mg PO QD (d/c 04/03) * 04/06 discontinued Crestor 20 mg PO HS * Echo: grade 1 relaxation pattern and mild pulmonary hypertension * EKG: T Wave abnormality * 03/29: BNP 83186 * UE and LE US - negative for DVT Respiratory - possible pneumonia vs lupus pnuemonitis * 03/31/17 Intubated * 04/05/27 Extubated, on 2L nasal canula and saturating well * 03/29/17 CTA: b/l interstitial/alveolar infiltrate with superimposed multifocal eder consolidation, dilated main pulmonary artery * ABG 7.49/39/173/29.6 * Solu-medrol 125 mg IV Q6 * Lasix 20 mg IV x1 dose on 04/06/17 Renal * Balance -740 * BUN/Cr * Lasix 20 mg IV x1 dose on 04/06/17 Fluids, electrolytes, nutrition * Electrolytes WNL except for those mentioned below Infectious disease * afebrile * WBC 10.1 * ID consulted (Cici) - recs appreciated * Sputum culture - no growth * Fluconazole 200 mg QD * 1g vanc Q12 resumed 04/07 (vanc trough <5) * Aztreonam 1g IV Q8 * Doxy 100 IV Q12 * Mepron 1500 mg PO ACL * Flagyl 500 mg Q8 (end 04/03) * Tamiflu (end 04/04) Hematology - Anemia, thrombocytopenia * H&H: 8.4/25.4 * Plt: 13 - up trending * 04/05: PT/PTT/INR - 16.3/32/1.4; fibrinogen - 331 * 04/05: transfused 1U of platelets * Plavix 75 mg PO QD (d/c 04/03) * Heparin drip discontinued * Heme/Onc consulted (Thuy) - recs appreciated * 04/04: Bone marrow biopsy - f/u results * 03/20: Folate >20, B12 >1000 GI - transaminitis * AST/ALT: elevated - possibly med side effect * Tbili: * Zofran PRN Endocrine * monitor blood glucose * 03/24: HbA1c 4.7 * 03/20: AM Cortisol: 27.7, TSH: 1.65, Free T4: 2.22 * Solu-medrol 125 mg IV Q6 Integumentary * A&D ointment * Vaseline Rheumatology - History of Lupus and RA * Hydroxychloroquine 200 mg PO QD * Dr. Puckett consulted - recs appreciated * Daily ESR: * 04/01 55 * 04/03 55 * 04/04 18 * 04/05 20 * 04/06 23 * 12/29 pending Prophylaxis * Protonix 40 mg PO QD <Chucky Astorga S - Last Filed: 04/07/17 17:46> CCU Objective - Vital Signs / Intake & Output Vital Signs (Last 4 hours): Vital Signs Temp Pulse Resp BP Pulse Ox 04/07/17 16:58 110 H 31 H 132/92 H 81 L 04/07/17 16:00 98.0 F 98 04/07/17 15:58 104 H 35 H 136/87 89 L 04/07/17 14:58 112 H 25 H 122/95 H 04/07/17 13:58 101 H 37 H 132/86 87 L Intake and Output (Last 8hrs): Intake & Output 04/07/17 04/07/17 04/07/17 06:59 14:59 22:59 Intake Total 890 700 Output Total 1100 250 Balance -210 450 Weight 206 lb 1 oz Intake: Intake, IV Amount 200 400 Left Antecubital Mid-Line 200 400 #2 Oral 390 300 Blood Product 300 Apheresis Plts Acda Lr 300 2nd Con Unit [id number] Output: Urine 1100 250 Urethral (Lewis) 1100 250 Other: # Bowel Movements 1 - Medications Active Medications: Active Medications Generic Name Dose Route Start Last Admin Trade Name Freq PRN Reason Stop Dose Admin Albuterol/Ipratropium 3 ml 04/01/17 14:00 04/07/17 14:31 Duoneb 3 Mg/0.5 Mg (3 Ml) Ud INH 3 ml RQ6 IMAN Administration Atovaquone 1,500 mg 04/06/17 10:00 04/07/17 10:54 Mepron PO 1,500 mg DAILY IMAN Administration Emollient Ointment 5 gm 03/31/17 12:18 04/02/17 09:25 Vaseline Oint TOP 5 gm Q4 PRN Administration DRY SKIN Gabapentin 400 mg 03/23/17 10:00 04/07/17 10:55 Neurontin PO 400 mg BID IMAN Administration Hydroxychloroquine Sulfate 200 mg 03/28/17 10:00 04/07/17 10:54 Plaquenil PO 200 mg DAILY IMAN Administration Doxycycline Hyclate 100 mg/ 100 mls @ 100 mls/hr 03/29/17 14:00 04/07/17 02: 05 Sodium Chloride IVPB 100 mls/hr Q12H IMAN Administration Fluconazole 100 mls @ 100 mls/hr 03/30/17 10:00 04/07/17 10:30 Diflucan Iv 200 Mg/100 Ml Ns IVPB 100 mls/hr DAILY IMAN Administration Aztreonam 1 gm/ Sodium 100 mls @ 100 mls/hr 03/30/17 10:30 04/07/17 09:30 Chloride IVPB 100 mls/hr Q8H IMAN Administration Vancomycin/Sodium Chloride 1 gm in 200 mls @ 133.333 mls/hr 04/07/17 09:30 11:00 Vancomycin 1 Gm/Ns 200 Ml IVPB 04/12/17 09:31 133.333 mls/hr Q12H IMAN Administration Methylprednisolone 125 mg 04/06/17 18:00 04/07/17 13:00 Solu-Medrol IV 125 mg Q6 IMAN Administration Ondansetron HCl 4 mg 03/20/17 15:00 03/20/17 15:01 Zofran Inj IVP 4 mg Q6H PRN Administration Nausea/Vomiting Pantoprazole Sodium 40 mg 04/06/17 10:00 04/07/17 10:58 Protonix Ec Tab PO 40 mg DAILY IMAN Administration - Patient Studies Lab Studies: Lab Studies 04/07/17 04/07/17 04/07/17 Range/Units 11:42 06:43 06:43 WBC (4.8-10.8) K/uL RBC (3.80-5.20) Mil/uL Hgb (11.0-16.0) g/dL Hct (34.0-47.0) % MCV (81.0-99.0) fL MCH (27.0-31.0) pg MCHC (33.0-37.0) g/dL RDW (11.5-14.5) % Plt Count (130-400) K/uL MPV (7.2-11.7) fL Neut % (Auto) (50.0-75.0) % Lymph % (Auto) (20.0-40.0) % [place] % (Auto) (0.0-10.0) % Eos % (Auto) (0.0-4.0) % Baso % (Auto) (0.0-2.0) % Neut # (1.8-7.0) K/uL Lymph # (1.0-4.3) K/uL [place] # (0.0-0.8) K/uL Eos # (0.0-0.7) K/uL Baso # (0.0-0.2) K/uL Neutrophils % (Manual) (50-75) % Band Neutrophils % (0-2) % Lymphocytes % (Manual) (20-40) % Monocytes % (Manual) (0-10) % Nucleated RBC % (0-0) % Platelet Estimate (NORMAL) Hypochromasia (manual) Poikilocytosis (manual Anisocytosis (manual) Ovalocytes ESR (0-20) mm/hr Sodium 138 (132-148) mmol/L Potassium 3.4 L (3.6-5.2) mmol/L Chloride 105 (98-107) mmol/L Carbon Dioxide 30 (22-30) mmol/L Anion Gap 7 L (10-20) BUN 33 H (7-17) mg/dL Creatinine 0.4 L (0.7-1.2) mg/dL Est GFR ( Amer) > 60 Est GFR (Non-Af Amer) > 60 POC Glucose (mg/dL) 141 H (65-110) mg/dL Random Glucose 129 H (65-105) mg/dL Calcium 8.5 L (8.6-10.4) mg/dl Phosphorus 3.1 (2.5-4.5) mg/dL Magnesium 1.7 (1.6-2.3) mg/dL Total Bilirubin 1.4 H (0.2-1.3) mg/dL AST 100 H D (14-36) U/L ALT 96 H (9-52) U/L Alkaline Phosphatase 249 H (38-126) U/L Total Protein 4.5 L (6.3-8.3) g/dL Albumin 2.1 L (3.5-5.0) g/dL Globulin 2.4 (2.2-3.9) gm/dL Albumin/Globulin Ratio 0.9 L (1.0-2.1) Vancomycin Trough < 5.0 L (5.0-10.0) ug/mL 04/07/17 04/07/17 04/06/17 Range/Units 06:43 04:54 23:30 WBC 10.1 (4.8-10.8) K/uL RBC 2.83 L (3.80-5.20) Mil/uL Hgb 8.4 L (11.0-16.0) g/dL Hct 25.4 L (34.0-47.0) % MCV 89.5 (81.0-99.0) fL MCH 29.7 (27.0-31.0) pg MCHC 33.2 (33.0-37.0) g/dL RDW 19.3 H (11.5-14.5) % Plt Count 13 L* (130-400) K/uL MPV 10.8 (7.2-11.7) fL Neut % (Auto) 91.1 H (50.0-75.0) % Lymph % (Auto) 1.6 L (20.0-40.0) % [place] % (Auto) 7.2 (0.0-10.0) % Eos % (Auto) 0.0 (0.0-4.0) % Baso % (Auto) 0.1 (0.0-2.0) % Neut # 9.2 H (1.8-7.0) K/uL Lymph # 0.2 L (1.0-4.3) K/uL [place] # 0.7 (0.0-0.8) K/uL Eos # 0.0 (0.0-0.7) K/uL Baso # 0.0 (0.0-0.2) K/uL Neutrophils % (Manual) 93 H (50-75) % Band Neutrophils % 1 (0-2) % Lymphocytes % (Manual) 1 L (20-40) % Monocytes % (Manual) 5 (0-10) % Nucleated RBC % 1 H (0-0) % Platelet Estimate Markedly decreased L (NORMAL) Hypochromasia (manual) Slight Poikilocytosis (manual Slight Anisocytosis (manual) Slight Ovalocytes Slight ESR 32 H (0-20) mm/hr Sodium (132-148) mmol/L Potassium (3.6-5.2) mmol/L Chloride (98-107) mmol/L Carbon Dioxide (22-30) mmol/L Anion Gap (10-20) BUN (7-17) mg/dL Creatinine (0.7-1.2) mg/dL Est GFR ( Amer) Est GFR (Non-Af Amer) POC Glucose (mg/dL) 151 H 169 H (65-110) mg/dL Random Glucose (65-105) mg/dL Calcium (8.6-10.4) mg/dl Phosphorus (2.5-4.5) mg/dL Magnesium (1.6-2.3) mg/dL Total Bilirubin (0.2-1.3) mg/dL AST (14-36) U/L ALT (9-52) U/L Alkaline Phosphatase (38-126) U/L Total Protein (6.3-8.3) g/dL Albumin (3.5-5.0) g/dL Globulin (2.2-3.9) gm/dL Albumin/Globulin Ratio (1.0-2.1) Vancomycin Trough (5.0-10.0) ug/mL 04/06/17 Range/Units 17:39 WBC (4.8-10.8) K/uL RBC (3.80-5.20) Mil/uL Hgb (11.0-16.0) g/dL Hct (34.0-47.0) % MCV (81.0-99.0) fL MCH (27.0-31.0) pg MCHC (33.0-37.0) g/dL RDW (11.5-14.5) % Plt Count (130-400) K/uL MPV (7.2-11.7) fL Neut % (Auto) (50.0-75.0) % Lymph % (Auto) (20.0-40.0) % [place] % (Auto) (0.0-10.0) % Eos % (Auto) (0.0-4.0) % Baso % (Auto) (0.0-2.0) % Neut # (1.8-7.0) K/uL Lymph # (1.0-4.3) K/uL [place] # (0.0-0.8) K/uL Eos # (0.0-0.7) K/uL Baso # (0.0-0.2) K/uL Neutrophils % (Manual) (50-75) % Band Neutrophils % (0-2) % Lymphocytes % (Manual) (20-40) % Monocytes % (Manual) (0-10) % Nucleated RBC % (0-0) % Platelet Estimate (NORMAL) Hypochromasia (manual) Poikilocytosis (manual Anisocytosis (manual) Ovalocytes ESR (0-20) mm/hr Sodium (132-148) mmol/L Potassium (3.6-5.2) mmol/L Chloride (98-107) mmol/L Carbon Dioxide (22-30) mmol/L Anion Gap (10-20) BUN (7-17) mg/dL Creatinine (0.7-1.2) mg/dL Est GFR ( Amer) Est GFR (Non-Af Amer) POC Glucose (mg/dL) 184 H (65-110) mg/dL Random Glucose (65-105) mg/dL Calcium (8.6-10.4) mg/dl Phosphorus (2.5-4.5) mg/dL Magnesium (1.6-2.3) mg/dL Total Bilirubin (0.2-1.3) mg/dL AST (14-36) U/L ALT (9-52) U/L Alkaline Phosphatase (38-126) U/L Total Protein (6.3-8.3) g/dL Albumin (3.5-5.0) g/dL Globulin (2.2-3.9) gm/dL Albumin/Globulin Ratio (1.0-2.1) Vancomycin Trough (5.0-10.0) ug/mL Laboratory Results - last 24 hr 04/06/17 04/06/17 04/07/17 17:39 23:30 04:54 WBC RBC Hgb Hct MCV MCH MCHC RDW Plt Count MPV Neut % (Auto) Lymph % (Auto) [place] % (Auto) Eos % (Auto) Baso % (Auto) Neut # Lymph # [place] # Eos # Baso # Neutrophils % (Manual) Band Neutrophils % Lymphocytes % (Manual) Monocytes % (Manual) Nucleated RBC % Platelet Estimate Hypochromasia (manual) Poikilocytosis (manual Anisocytosis (manual) Ovalocytes ESR Sodium Potassium Chloride Carbon Dioxide Anion Gap BUN Creatinine Est GFR ( Amer) Est GFR (Non-Af Amer) POC Glucose (mg/dL) 184 H 169 H 151 H Random Glucose Calcium Phosphorus Magnesium Total Bilirubin AST ALT Alkaline Phosphatase Total Protein Albumin Globulin Albumin/Globulin Ratio Vancomycin Trough 04/07/17 04/07/17 04/07/17 06:43 06:43 06:43 WBC 10.1 RBC 2.83 L Hgb 8.4 L Hct 25.4 L MCV 89.5 MCH 29.7 MCHC 33.2 RDW 19.3 H Plt Count 13 L* MPV 10.8 Neut % (Auto) 91.1 H Lymph % (Auto) 1.6 L [place] % (Auto) 7.2 Eos % (Auto) 0.0 Baso % (Auto) 0.1 Neut # 9.2 H Lymph # 0.2 L [place] # 0.7 Eos # 0.0 Baso # 0.0 Neutrophils % (Manual) 93 H Band Neutrophils % 1 Lymphocytes % (Manual) 1 L Monocytes % (Manual) 5 Nucleated RBC % 1 H Platelet Estimate Markedly decreased L Hypochromasia (manual) Slight Poikilocytosis (manual Slight Anisocytosis (manual) Slight Ovalocytes Slight ESR 32 H Sodium 138 Potassium 3.4 L Chloride 105 Carbon Dioxide 30 Anion Gap 7 L BUN 33 H Creatinine 0.4 L Est GFR ( Amer) > 60 Est GFR (Non-Af Amer) > 60 POC Glucose (mg/dL) Random Glucose 129 H Calcium 8.5 L Phosphorus 3.1 Magnesium 1.7 Total Bilirubin 1.4 H AST 100 H D ALT 96 H Alkaline Phosphatase 249 H Total Protein 4.5 L Albumin 2.1 L Globulin 2.4 Albumin/Globulin Ratio 0.9 L Vancomycin Trough < 5.0 L 04/07/17 11:42 WBC RBC Hgb Hct MCV MCH MCHC RDW Plt Count MPV Neut % (Auto) Lymph % (Auto) [place] % (Auto) Eos % (Auto) Baso % (Auto) Neut # Lymph # [place] # Eos # Baso # Neutrophils % (Manual) Band Neutrophils % Lymphocytes % (Manual) Monocytes % (Manual) Nucleated RBC % Platelet Estimate Hypochromasia (manual) Poikilocytosis (manual Anisocytosis (manual) Ovalocytes ESR Sodium Potassium Chloride Carbon Dioxide Anion Gap BUN Creatinine Est GFR ( Amer) Est GFR (Non-Af Amer) POC Glucose (mg/dL) 141 H Random Glucose Calcium Phosphorus Magnesium Total Bilirubin AST ALT Alkaline Phosphatase Total Protein Albumin Globulin Albumin/Globulin Ratio Vancomycin Trough Critical Care Progress Note - Nutrition Nutrition: Nutrition Category Date Time Status Regular Diet [DIET] Diets 04/06/17 Lunch Active Attending/Attestation - Attestation I have personally seen and examined this patient.: Yes I have fully participated in the care of the patient.: Yes I have reviewed all pertinent clinical information: Yes Notes (Text): 04/07/17 17:45 Patient seen and examined in the intensive care unit. Case discussed with staff in the morning rounds. Patient stable for transfer to floor Continue to monitor platelet count Awaiting bone marrow biopsy Hematology follow-up
[2017-04-07 07:49] LABS: ALB/GLOB RATIO 0.9 (1.0-2.1); ALBUMIN 2.1 g/dL (3.5-5.0); ALT/SGPT 96 U/L (9-52); AST/SGOT 100 U/L (14-36); BLOOD UREA NITROGEN 33 mg/dL (7-17); CALCIUM 8.5 mg/dl (8.6-10.4); GFR AFRICAN-AMERICAN > 60; GFR NON-AFRICAN AMERICAN > 60; MAGNESIUM 1.7 mg/dL (1.6-2.3)
[2017-04-07 08:47] LABS: ANISOCYTOSIS SLIGHT; BANDS 1 % (0-2); LYMPHOCYTE 1 % (20-40); MONOCYTE 5 % (0-10); NEUTROPHIL 93 % (50-75); NUCLEATED RED BLOOD CELL 1 % (0-0); PLATELET ESTIMATE MARKEDLY DECREASED (NORMAL); POIKILOCYTOSIS SLIGHT; TOTAL CELLS COUNTED 100
[2017-04-07 08:48] LABS: HYPOCHROMIC SLIGHT; OVALOCYTES SLIGHT
--- NOTE | 2017-04-07 08:59 | CP.PCM.PN ---
Subjective - Date & Time of Evaluation Date of Evaluation: 04/07/17 Time of Evaluation: 08:25 - Subjective Subjective: Patient was seen and examined She is very awake and alert x 3. Answering questions appropriately. She was eating breakfast and tolerating it very well. She also denied pain, and denied shortness of breath, denied chest pain. Her lower extremity pain is signifigantly less she says. Leg swelling has also decreased as well. I spoke with her older son Anitha Awad [phone], the patient requested I not call her young son today since he is taking a test. Objective - Vital Signs/Intake and Output Vital Signs (last 24 hours): Temp Pulse Resp BP Pulse Ox 98.4 F 96 H 24 133/79 98 04/07/17 08:00 04/07/17 07:58 04/07/17 07:58 04/07/17 07:58 04/07/17 08:00 Intake and Output: 04/07/17 04/07/17 06:59 18:59 Intake Total 990 Output Total 1300 100 Balance -310 -100 - Medications Medications: Current Medications Albuterol/Ipratropium (Duoneb 3 Mg/0.5 Mg (3 Ml) Ud) 3 ml INH RQ6 [facility] Last Admin: 04/07/17 01:58 Dose: 3 ml Atovaquone (Mepron) 1,500 mg PO DAILY [facility] Last Admin: 04/06/17 11:00 Dose: 1,500 mg Emollient Ointment (Vaseline Oint) 5 gm TOP Q4 PRN PRN Reason: DRY SKIN Last Admin: 04/02/17 09:25 Dose: 5 gm Gabapentin (Neurontin) 400 mg PO BID [facility] Last Admin: 04/06/17 18:35 Dose: 400 mg Hydroxychloroquine Sulfate (Plaquenil) 200 mg PO DAILY [facility] Last Admin: 04/06/17 11:01 Dose: 200 mg Doxycycline Hyclate 100 mg/ (Sodium Chloride) 100 mls @ 100 mls/hr IVPB Q12H [facility] Last Admin: 04/07/17 02:05 Dose: 100 mls/hr Fluconazole (Diflucan Iv 200 Mg/100 Ml Ns) 100 mls @ 100 mls/hr IVPB DAILY [facility] Last Admin: 04/06/17 10:00 Dose: 100 mls/hr Aztreonam 1 gm/ Sodium (Chloride) 100 mls @ 100 mls/hr IVPB Q8H [facility] Last Admin: 04/07/17 02:07 Dose: 100 mls/hr Vancomycin HCl 1 gm/ Sodium (Chloride) 250 mls @ 133.333 mls/hr IVPB Q12H [facility] Last Admin: 04/02/17 20:29 Dose: 133.333 mls/hr Methylprednisolone (Solu-Medrol) 125 mg IV Q6 [facility] Last Admin: 04/07/17 05:43 Dose: 125 mg Ondansetron HCl (Zofran Inj) 4 mg IVP Q6H PRN PRN Reason: Nausea/Vomiting Last Admin: 03/20/17 15:01 Dose: 4 mg Pantoprazole Sodium (Protonix Ec Tab) 40 mg PO DAILY [facility] Last Admin: 04/06/17 11:01 Dose: 40 mg - Labs Labs: 04/07/17 06:43 04/07/17 06:43 PT 16.3 SECONDS (9.7-12.2) H 04/05/17 10:54 INR 1.4 04/05/17 10:54 APTT 32 SECONDS (21-34) 04/05/17 10:54 - Constitutional Appears: Well, No Acute Distress - Head Exam Head Exam: NORMAL INSPECTION, NORMOCEPHALIC - ENT Exam ENT Exam: Mucous Membranes Moist - Respiratory Exam Respiratory Exam: Clear to Ausculation Bilateral, NORMAL BREATHING PATTERN - Cardiovascular Exam Cardiovascular Exam: REGULAR RHYTHM - GI/Abdominal Exam GI & Abdominal Exam: Soft, Normal Bowel Sounds - Neurological Exam Neurological Exam: Alert, Awake, Oriented x3 Neuro motor strength exam: Left Upper Extremity: 5, Right Upper Extremity: 5 Additional comments: wearing prevadon boots - Psychiatric Exam Psychiatric exam: Normal Affect, Normal Mood - Skin Skin Exam: Normal Color, Warm Assessment and Plan - Assessment and Plan (Free Text) Assessment: Assessment and Plan (1) Acute respiratory failure Assessment & Plan: 04/07: Feels well, will get a portable film today. She remains on IV solumedrol and plaquenil. 04/06: Patient was successfuly extubated yesterday. She is not in any distress. There wasn't a CXRAY this AM. 04/05: Decreasing platelet count. Remains intubated at this time. Cultures are negative at the moment. 04/04: Remains intubated at this time and on sedation. The CXRAY this AM appeared to have some improvment when compared to previous. Patient was intubated 03/31 given respiratory distress. 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 Possible bronchscopy or broncholavag r/o infection. Patient is thrombocytopenia. Plavix discontinued today. I discussed with neurology prior to discontinuation given worsening thrombocytopenia and consideration for bronch. He does not agree with abnormal brain MRI given patient does not clinically present with symptoms. Mepron 1500mg PO ACL (cover for PCP in light of immunosuppression from lupus therapy) Fluconazole 200mg IVPB daily (since 03/30) Aztreonam 1 gram IVPB Q8H (since 03/30) Doxycycline 100mg IVQ12H (since 03/29) Tamiflu 75mg PO BID (03/30-04/04) Influenza: negative Legionella: negative Mycoplasma IgM: negative ASO: negative Will check HIV given patient is on custodial suppression therapy prior for lupus. (2) Pneumonitis Assessment & Plan: 04/07: History of lupus, she remains on IV solumedrol, repeat CXRAY (3) Overlap syndrome Status: Suspected (4) History of lupus Assessment & Plan: 04/04: Currently reciving solumedrol 125 IV Q6hrs and remains on Plaqunil 200 daily h/o lupus on leflunomide and hydroxychloroquine X17 years * Plaquenil 200mg PO daily (started 03/28) * Was increase Solumedrol 250mg IVP Q6H (04/02-04/03) (total 1 gram) * Solumedrol 40mg IV Q12 (03/20-03/31) * Solumedrol 40mg IVP Q 6H (03/31) * Serology: * DRE: positive * Speckled * SS-A positive Negative for SS-B * [employer] Ab: >8.0 positive * Double stranded DNA <4 * Complement 3 and 4 Normal (03/22) * Anticardiolipin <12 (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 Pillai 04/02 Hematology: Dr. Olivia Daley on the case help appreciated Direct kimo negative low retic index; hypoproliferative erythroid response unlikely acute hemolysis anemia of chronic disease immunosuppression contribution on marrow Status: Chronic (6) Thrombocytopenia Assessment & Plan: 04/07: Today increased to 13K. Still pending results of bone marrow biospy 04/06: Platelet count is only 10K today, had 1 unit of platelets yesterday. Pending results on bone marrow biopsy. Remains on IV steroids 04/05: ICU is tranfusing platelets. Hgb is 9.5 today. Remains off of plavix and ASA. She just had a bone marrow biopsy done by hematology/oncology 04/04: Platelet count again slightly decreased to 15K. Currently off of Plavix if counts do not rebound, will need bone marrow evaluation per heme-onc when clinically stable per latest heme-onc note 04/03-->Discussed with Dr. Garibay, in light of worsening thrombocytopenia, discontinue Plavix. Patient had been on Plavix for abnormal brain MRI previously. 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 Neurology last noted from , neurologically stable. C/w Neurotin 400mg PO BID with PT and DVT ppX Workup: MRI of brain as acute to subacute process of infarct in mid pontine region, does not show clinical picture suggestive of ischemic process affecting pontine region. possible artifactual. Normal EEG. 03/22 Lumbar spine MRI- Multilevel degenerative spondylosis most significantly affecting the L3-L4 and L2-L3 levels and to a lesser degree L4-L5 levels. 03/22 Thoracic spine MRI- moderate to fairly significant degenerative spondylosis of the cervical spine seen on the sagittal counting sequence with the moderate canal stenosis as well as a cord compression most significant at at the C4-C5 and C5-C6 levels. Dr Olsen (spinal provider relations specialist) for evaluation of MRI and recommendation , help appreciated- Dr Olsen saw and examined patient. No acute surgical intervention at time of assessment Note: patient has been on retirement immunosuppression for lupus * Lipid panel: low cholestrol, low TG, very low HDL; LDL: normal Hgba1c: 4.7 (9) Edema Assessment & Plan: 03/29/17: venous doppler: negative for DVT b/l; was previously on diuretic therapy as outpatient (10) Elevated troponin Assessment & Plan: Dr. Medellin (cardiolology) was consulted. Likely demand ischemia. Previous echocardiogram reveals normal left ventricular function. The patient is currently asymptomatic. If normalizes can consider d/c heparin. add antiplatelet therapy. (11) CHF (congestive heart failure) Assessment & Plan: suspecting diastolic heart failure anticoagulation contraindicated secondary to thrombocytopenia Crestor 20mg POHS off antihypertensive therapy (blood pressure is normal limits) Echocardiogram: left ventricle systolic function is normal/ EF: 75%. Abnormal relaxation pattern. Mild pulm hypertension (12) Prophylactic measure Assessment & Plan: Anticoagulation contraindicated secondary to thrombocytopenia d/c Plavix, discussed with Dr. garibay in light of worsening thrombocytopenia
[2017-04-07] MEDS: Fluconazole IV 200mg/100 ml NS 100 ML IVPB SCH (10:30)
[2017-04-07] MEDS: Atovaquone 750 mg/5 ml Susp UD PO SCH (10:54)
[2017-04-07] MEDS: Pantoprazole 40 mg EC Tab PO SCH (10:58)
[2017-04-07] MEDS: Vancomycin 1 gm/NS 200 ml 1 GM/200 ML BAG IVPB SCH ×2 (11:00→21:05)
--- NOTE | 2017-04-07 21:59 | CP.PCM.PN ---
Subjective - Date & Time of Evaluation Date of Evaluation: 04/07/17 Time of Evaluation: 11:00 - Subjective Subjective: Feeling better Objective - Vital Signs/Intake and Output Vital Signs (last 24 hours): Temp Pulse Resp BP Pulse Ox 98.1 F 117 H 10 L 135/96 H 100 04/07/17 20:00 04/07/17 20:00 04/07/17 20:00 04/07/17 19:58 04/07/17 20:00 Intake and Output: 04/07/17 04/08/17 18:59 06:59 Intake Total 1000 Output Total 850 Balance 150 - Medications Medications: Current Medications Albuterol/Ipratropium (Duoneb 3 Mg/0.5 Mg (3 Ml) Ud) 3 ml INH RQ6 [facility] Last Admin: 04/07/17 19:50 Dose: 3 ml Atovaquone (Mepron) 1,500 mg PO DAILY [facility] Last Admin: 04/07/17 10:54 Dose: 1,500 mg Emollient Ointment (Vaseline Oint) 5 gm TOP Q4 PRN PRN Reason: DRY SKIN Last Admin: 04/02/17 09:25 Dose: 5 gm Gabapentin (Neurontin) 400 mg PO BID [facility] Last Admin: 04/07/17 17:57 Dose: 400 mg Hydroxychloroquine Sulfate (Plaquenil) 200 mg PO DAILY [facility] Last Admin: 04/07/17 10:54 Dose: 200 mg Doxycycline Hyclate 100 mg/ (Sodium Chloride) 100 mls @ 100 mls/hr IVPB Q12H [facility] Last Admin: 04/07/17 14:00 Dose: 100 mls/hr Fluconazole (Diflucan Iv 200 Mg/100 Ml Ns) 100 mls @ 100 mls/hr IVPB DAILY [facility] Last Admin: 04/07/17 10:30 Dose: 100 mls/hr Aztreonam 1 gm/ Sodium (Chloride) 100 mls @ 100 mls/hr IVPB Q8H [facility] Last Admin: 04/07/17 17:58 Dose: 100 mls/hr Vancomycin/Sodium Chloride (Vancomycin 1 Gm/Ns 200 Ml) 1 gm in 200 mls @ 133.333 mls/hr IVPB Q12H [facility] Stop: 04/12/17 09:31 Last Admin: 04/07/17 21:05 Dose: 133.333 mls/hr Methylprednisolone (Solu-Medrol) 125 mg IV Q6 [facility] Last Admin: 04/07/17 17:57 Dose: 125 mg Ondansetron HCl (Zofran Inj) 4 mg IVP Q6H PRN PRN Reason: Nausea/Vomiting Last Admin: 03/20/17 15:01 Dose: 4 mg Pantoprazole Sodium (Protonix Ec Tab) 40 mg PO DAILY [facility] Last Admin: 04/07/17 10:58 Dose: 40 mg - Labs Labs: 04/07/17 06:43 04/07/17 06:43 PT 16.3 SECONDS (9.7-12.2) H 04/05/17 10:54 INR 1.4 04/05/17 10:54 APTT 32 SECONDS (21-34) 04/05/17 10:54 - Head Exam Head Exam: ATRAUMATIC - Eye Exam Eye Exam: Normal appearance - ENT Exam ENT Exam: Mucous Membranes Dry - Respiratory Exam Respiratory Exam: NORMAL BREATHING PATTERN - Cardiovascular Exam Cardiovascular Exam: +S1, +S2 - GI/Abdominal Exam GI & Abdominal Exam: Normal Bowel Sounds - Extremities Exam Extremities Exam: Pedal Edema Assessment and Plan (1) Thrombocytopenia Assessment & Plan: prelim bone marrow negative for malignancy awaiting core biopsy results if no evidence of malignancy; likely immune mediated from SLE not responding to steroids will discuss with rheumatology if would benefit from further immunosuppression Status: Acute (2) Anemia Assessment & Plan: chronic disease likely element of hemolysis from SLE on steroids transfusion support prn Status: Acute (3) Coagulopathy Assessment & Plan: nutritional Status: Acute
[2017-04-07 22:35] LABS: ABG ALLEN TEST POS; ARTERIAL BLOOD GAS O2 SAT 97.4 % (95-98); ARTERIAL BLOOD GAS PCO2 45 mm/Hg (35-45); ARTERIAL BLOOD GAS PH 7.42 (7.35-7.45); ARTERIAL BLOOD GAS PO2 69 mm/Hg (80-100); ARTERIAL BLOOD GAS TCO2 30.6 mmol/L (22-28)
--- NOTE | 2017-04-07 23:05 | CP.PCM.PN ---
Subjective - Date & Time of Evaluation Date of Evaluation: 04/07/17 Time of Evaluation: 13:25 - Subjective Subjective: Patient more alert and responsive. She is now extubated and sedimentation rate down to 23. Platlets remain low at 15,000. Will discuss futher measures with hematology. Objective - Vital Signs/Intake and Output Vital Signs (last 24 hours): Temp Pulse Resp BP Pulse Ox 98.1 F 117 H 10 L 133/91 H 100 04/07/17 20:00 04/07/17 20:00 04/07/17 20:00 04/07/17 22:49 04/07/17 20:00 Intake and Output: 04/07/17 04/08/17 18:59 06:59 Intake Total 1000 Output Total 850 Balance 150 - Medications Medications: Current Medications Albuterol/Ipratropium (Duoneb 3 Mg/0.5 Mg (3 Ml) Ud) 3 ml INH RQ6 [facility] Last Admin: 04/07/17 19:50 Dose: 3 ml Atovaquone (Mepron) 1,500 mg PO DAILY [facility] Last Admin: 04/07/17 10:54 Dose: 1,500 mg Emollient Ointment (Vaseline Oint) 5 gm TOP Q4 PRN PRN Reason: DRY SKIN Last Admin: 04/02/17 09:25 Dose: 5 gm Gabapentin (Neurontin) 400 mg PO BID [facility] Last Admin: 04/07/17 17:57 Dose: 400 mg Hydroxychloroquine Sulfate (Plaquenil) 200 mg PO DAILY [facility] Last Admin: 04/07/17 10:54 Dose: 200 mg Doxycycline Hyclate 100 mg/ (Sodium Chloride) 100 mls @ 100 mls/hr IVPB Q12H [facility] Last Admin: 04/07/17 14:00 Dose: 100 mls/hr Fluconazole (Diflucan Iv 200 Mg/100 Ml Ns) 100 mls @ 100 mls/hr IVPB DAILY [facility] Last Admin: 04/07/17 10:30 Dose: 100 mls/hr Aztreonam 1 gm/ Sodium (Chloride) 100 mls @ 100 mls/hr IVPB Q8H [facility] Last Admin: 04/07/17 17:58 Dose: 100 mls/hr Vancomycin/Sodium Chloride (Vancomycin 1 Gm/Ns 200 Ml) 1 gm in 200 mls @ 133.333 mls/hr IVPB Q12H [facility] Stop: 04/12/17 09:31 Last Admin: 04/07/17 21:05 Dose: 133.333 mls/hr Methylprednisolone (Solu-Medrol) 125 mg IV Q6 [facility] Last Admin: 04/07/17 17:57 Dose: 125 mg Ondansetron HCl (Zofran Inj) 4 mg IVP Q6H PRN PRN Reason: Nausea/Vomiting Last Admin: 03/20/17 15:01 Dose: 4 mg Pantoprazole Sodium (Protonix Ec Tab) 40 mg PO DAILY [facility] Last Admin: 04/07/17 10:58 Dose: 40 mg - Labs Labs: 04/07/17 06:43 04/07/17 06:43 PT 16.3 SECONDS (9.7-12.2) H 04/05/17 10:54 INR 1.4 04/05/17 10:54 APTT 32 SECONDS (21-34) 04/05/17 10:54 - Constitutional Appears: Chronically Ill - Head Exam Head Exam: NORMOCEPHALIC - Eye Exam Eye Exam: Normal appearance Pupil Exam: NORMAL ACCOMODATION - ENT Exam ENT Exam: Normal Exam - Neck Exam Neck Exam: Normal Inspection - Respiratory Exam Respiratory Exam: Decreased Breath Sounds - Cardiovascular Exam Cardiovascular Exam: REGULAR RHYTHM - GI/Abdominal Exam GI & Abdominal Exam: Normal Bowel Sounds - Rectal Exam Rectal Exam: Deferred - Exam External exam: NORMAL EXTERNAL EXAM - Extremities Exam Extremities Exam: Normal Inspection - Back Exam Back Exam: NORMAL INSPECTION - Neurological Exam Neurological Exam: Awake - Skin Skin Exam: Dry Assessment and Plan (1) Systemic lupus Status: Acute (2) Anemia Status: Acute (3) CHF (congestive heart failure) Status: Chronic (4) Coagulopathy Status: Acute (5) Leg pain, bilateral Status: Acute (6) Elevated troponin Status: Resolved
[2017-04-08] MEDS: Albuterol-Ipratrop 3 mg / 0.5 (3 ml) UD INH SCH ×4 (01:52→20:23)
[2017-04-08] MEDS: Aztreonam 1 GM in Sodium Chloride 0.9% 100 ML IVPB SCH ×3 (03:20→19:00)
[2017-04-08 05:25] LABS: ABG ALLEN TEST POS; ARTERIAL BLOOD GAS O2 SAT 98.6 % (95-98); ARTERIAL BLOOD GAS PCO2 44 mm/Hg (35-45); ARTERIAL BLOOD GAS PH 7.46 (7.35-7.45); ARTERIAL BLOOD GAS PO2 79 mm/Hg (80-100); ARTERIAL BLOOD GAS TCO2 32.7 mmol/L (22-28)
[2017-04-08] MEDS ORDERED: Potassium Chloride 20 mEq/15 ml LIQ UD PO ONE (06:00)
[2017-04-08 06:33] LABS: BASO % 0.2 % (0.0-2.0); HEMOGLOBIN 9.5 g/dL (11.0-16.0); LYMPH # 0.2 K/uL (1.0-4.3); LYMPH % 1.3 % (20.0-40.0); MEAN CELL VOLUME 88.4 fL (81.0-99.0); MEAN CORPUSCULAR HEMOGLOBIN 29.5 pg (27.0-31.0); MEAN CORPUSCULAR HGB CONC 33.4 g/dL (33.0-37.0); MEAN PLATELET VOLUME 10.5 fL (7.2-11.7); MONO # 0.8 K/uL (0.0-0.8); MONO % 5.7 % (0.0-10.0); NEUT % 92.8 % (50.0-75.0); RBC 3.21 Mil/uL (3.80-5.20); RED CELL DISTRIBUTION WIDTH 19.4 % (11.5-14.5)
[2017-04-08 06:43] LABS: PLATELET COUNT 13 K/uL (130-400)
[2017-04-08 06:45] LABS: ALB/GLOB RATIO 0.8 (1.0-2.1); ALBUMIN 2.2 g/dL (3.5-5.0); ALT/SGPT 121 U/L (9-52); AST/SGOT 114 U/L (14-36); BLOOD UREA NITROGEN 31 mg/dL (7-17); CALCIUM 8.6 mg/dl (8.6-10.4); GFR AFRICAN-AMERICAN > 60; GFR NON-AFRICAN AMERICAN > 60; MAGNESIUM 1.6 mg/dL (1.6-2.3)
--- NOTE | 2017-04-08 08:38 | RAD ---
HISTORY: poor O2 saturation COMPARISON: Comparison is made to 04/05/2017 FINDINGS: LUNGS: Interval worsening of patchy opacities in the lungs since the previous study. The patient is status post extubation since the previous study. PLEURA: There is suspicious for small to moderate right pleural effusion. CARDIOVASCULAR: The cardiac silhouette is mildly enlarged. OSSEOUS STRUCTURES: No significant abnormalities. VISUALIZED UPPER ABDOMEN: Normal. OTHER FINDINGS: None. IMPRESSION: Status post intubation since the previous study. Interval significant worsening of patchy opacities in both lungs since the previous exam. Correlate clinically for pulmonary edema or multifocal pneumonia. Suspicious for right pleural effusion.
[2017-04-08 08:40] LABS: ANISOCYTOSIS SLIGHT; BANDS 1 % (0-2); HYPOCHROMIC SLIGHT; LYMPHOCYTE 2 % (20-40); MONOCYTE 5 % (0-10); NEUTROPHIL 92 % (50-75); PLATELET ESTIMATE MARKEDLY DECREASED (NORMAL); POLYCHROMIC SLIGHT; TOTAL CELLS COUNTED 100
[2017-04-08 08:42] LABS: TARGET CELLS SLIGHT
[2017-04-08 08:43] LABS: POIKILOCYTOSIS SLIGHT; SCHISTOCYTES SLIGHT
[2017-04-08 08:44] LABS: TOXIC GRANULATION PRESENT
[2017-04-08 08:45] LABS: LARGE PLATELETS PRESENT
[2017-04-08] MEDS: Fluconazole IV 200mg/100 ml NS 100 ML IVPB SCH (09:00)
[2017-04-08] MEDS: Vancomycin 1 gm/NS 200 ml 1 GM/200 ML BAG IVPB SCH ×2 (10:00→21:11)
[2017-04-08] MEDS: Pantoprazole 40 mg EC Tab PO SCH (10:38)
[2017-04-08] MEDS: Atovaquone 750 mg/5 ml Susp UD PO SCH (10:38)
--- NOTE | 2017-04-08 11:07 | RAD ---
HISTORY: congestion COMPARISON: Comparison is made with 04/07/2017 FINDINGS: LUNGS: Interval mild improvement in the lungs in especially in the left since the previous exam PLEURA: Right pleural effusion is again noted. There is small blunting of the left costophrenic angle. CARDIOVASCULAR: Normal. OSSEOUS STRUCTURES: No significant abnormalities. VISUALIZED UPPER ABDOMEN: Normal. OTHER FINDINGS: None. IMPRESSION: Interval improvement in the lungs left more than right since the previous exam. Right pleural effusion.
--- NOTE | 2017-04-08 11:22 | CP.PCM.PN ---
Subjective - Date & Time of Evaluation Date of Evaluation: 04/08/17 Time of Evaluation: 10:00 - Subjective Subjective: Patient was seen and examined. I spoke with Beba at bedside today. Patient was ok with this. Patient denied chest pain, denied shortness of breath, denied palpitations, denied headaches. She did report + suprapubic area discomfort probably from lasix. She remained in ICU after review of the CXRAYs, patient explains she did not feel short of breath overnight. She was getting IV lasix. Per hematology/oncology the bone marrow biopsy results pre-liminary returned and so far does not appear to be malignancy. Platelet count is still under 15K Objective - Vital Signs/Intake and Output Vital Signs (last 24 hours): Temp Pulse Resp BP Pulse Ox 98.4 F 104 H 30 H 137/93 H 93 L 04/08/17 08:00 04/08/17 10:49 04/08/17 10:49 04/08/17 10:49 04/08/17 10:49 Intake and Output: 04/08/17 04/08/17 06:59 18:59 Intake Total 450 700 Output Total 1605 200 Balance -1155 500 - Medications Medications: Current Medications Albuterol/Ipratropium (Duoneb 3 Mg/0.5 Mg (3 Ml) Ud) 3 ml INH RQ6 IMAN Last Admin: 04/08/17 08:18 Dose: 3 ml Atovaquone (Mepron) 1,500 mg PO DAILY IMAN Last Admin: 04/08/17 10:38 Dose: 1,500 mg Emollient Ointment (Vaseline Oint) 5 gm TOP Q4 PRN PRN Reason: DRY SKIN Last Admin: 04/02/17 09:25 Dose: 5 gm Gabapentin (Neurontin) 400 mg PO BID IMAN Last Admin: 04/08/17 10:38 Dose: 400 mg Hydroxychloroquine Sulfate (Plaquenil) 200 mg PO DAILY IMAN Last Admin: 04/08/17 10:38 Dose: 200 mg Doxycycline Hyclate 100 mg/ (Sodium Chloride) 100 mls @ 100 mls/hr IVPB Q12H IMAN Last Admin: 04/08/17 02:28 Dose: 100 mls/hr Fluconazole (Diflucan Iv 200 Mg/100 Ml Ns) 100 mls @ 100 mls/hr IVPB DAILY IMAN Last Admin: 04/08/17 09:00 Dose: 100 mls/hr Aztreonam 1 gm/ Sodium (Chloride) 100 mls @ 100 mls/hr IVPB Q8H [facility] Last Admin: 04/08/17 10:30 Dose: 100 mls/hr Vancomycin/Sodium Chloride (Vancomycin 1 Gm/Ns 200 Ml) 1 gm in 200 mls @ 133.333 mls/hr IVPB Q12H [facility] Stop: 04/12/17 09:31 Last Admin: 04/08/17 10:00 Dose: 133.333 mls/hr Methylprednisolone (Solu-Medrol) 125 mg IV Q6 [facility] Last Admin: 04/08/17 06:14 Dose: 125 mg Ondansetron HCl (Zofran Inj) 4 mg IVP Q6H PRN PRN Reason: Nausea/Vomiting Last Admin: 03/20/17 15:01 Dose: 4 mg Pantoprazole Sodium (Protonix Ec Tab) 40 mg PO DAILY [facility] Last Admin: 04/08/17 10:38 Dose: 40 mg - Labs Labs: 04/08/17 06:24 04/08/17 06:19 PT 16.3 SECONDS (9.7-12.2) H 04/05/17 10:54 INR 1.4 04/05/17 10:54 APTT 32 SECONDS (21-34) 04/05/17 10:54 - Constitutional Appears: Well, No Acute Distress - Head Exam Head Exam: NORMAL INSPECTION, NORMOCEPHALIC - Eye Exam Eye Exam: EOMI, Normal appearance - ENT Exam ENT Exam: Mucous Membranes Moist - Respiratory Exam Respiratory Exam: Decreased Breath Sounds, Rales, Rhonchi, NORMAL BREATHING PATTERN - Cardiovascular Exam Cardiovascular Exam: REGULAR RHYTHM - GI/Abdominal Exam GI & Abdominal Exam: Soft, Normal Bowel Sounds - Extremities Exam Extremities Exam: Pedal Edema - Neurological Exam Neurological Exam: Alert, Awake, Oriented x3 Neuro motor strength exam: Left Upper Extremity: 5, Right Upper Extremity: 5 Additional comments: wearing prevadon boots. - Psychiatric Exam Psychiatric exam: Normal Affect, Normal Mood - Skin Skin Exam: Normal Color, Warm Assessment and Plan - Assessment and Plan (Free Text) Assessment: Assessment and Plan (1) Acute respiratory failure Assessment & Plan: 04/08: Overnight was given lasix IV after CXRAYs appear worsening from possible pulmonary edema. This morning was on nonrebreather mask 12/29: Feels well, will get a portable film today. She remains on IV solumedrol and plaquenil. 04/06: Patient was successfuly extubated yesterday. She is not in any distress. There wasn't a CXRAY this AM. 04/05: Decreasing platelet count. Remains intubated at this time. Cultures are negative at the moment. 04/04: Remains intubated at this time and on sedation. The CXRAY this AM appeared to have some improvment when compared to previous. Patient was intubated 03/31 given respiratory distress. 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 Possible bronchscopy or broncholavag r/o infection. Patient is thrombocytopenia. Plavix discontinued today. I discussed with neurology prior to discontinuation given worsening thrombocytopenia and consideration for bronch. He does not agree with abnormal brain MRI given patient does not clinically present with symptoms. Mepron 1500mg PO ACL (cover for PCP in light of immunosuppression from lupus therapy) Fluconazole 200mg IVPB daily (since 03/30) Aztreonam 1 gram IVPB Q8H (since 03/30) Doxycycline 100mg IVQ12H (since 03/29) Tamiflu 75mg PO BID (03/30-04/04) Influenza: negative Legionella: negative Mycoplasma IgM: negative ASO: negative Will check HIV given patient is on detention suppression therapy prior for lupus. (2) Pneumonitis Assessment & Plan: 04/07: History of lupus, she remains on IV solumedrol, repeat CXRAY (3) Overlap syndrome Status: Suspected (4) History of lupus Assessment & Plan: 04/08: There is preliminary bone marrow biopsy returned and negative for maliginacy. 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 Pillai 04/02 Hematology: Dr. Olivia Dalye on the case help appreciated Direct kimo negative low retic index; hypoproliferative erythroid response unlikely acute hemolysis anemia of chronic disease immunosuppression contribution on marrow Status: Chronic (6) Thrombocytopenia Assessment & Plan: 04/08: There is preliminary bone marrow biopsy returned and negative for maliginacy. 04/07: Today increased to 13K. Still pending results of bone marrow biospy 04/06: Platelet count is only 10K today, had 1 unit of platelets yesterday. Pending results on bone marrow biopsy. Remains on IV steroids 04/05: ICU is tranfusing platelets. Hgb is 9.5 today. Remains off of plavix and ASA. She just had a bone marrow biopsy done by hematology/oncology 04/04: Platelet count again slightly decreased to 15K. Currently off of Plavix if counts do not rebound, will need bone marrow evaluation per heme-onc when clinically stable per latest heme-onc note 04/03-->Discussed with Dr. Wilson, in light of worsening thrombocytopenia, discontinue Plavix. Patient had been on Plavix for abnormal brain MRI previously. 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 Neurology last noted from , neurologically stable. C/w Neurotin 400mg PO BID with PT and DVT ppX Workup: MRI of brain as acute to subacute process of infarct in mid pontine region, does not show clinical picture suggestive of ischemic process affecting pontine region. possible artifactual. Normal EEG. 03/22 Lumbar spine MRI- Multilevel degenerative spondylosis most significantly affecting the L3-L4 and L2-L3 levels and to a lesser degree L4-L5 levels. 03/22 Thoracic spine MRI- moderate to fairly significant degenerative spondylosis of the cervical spine seen on the sagittal counting sequence with the moderate canal stenosis as well as a cord compression most significant at at the C4-C5 and C5-C6 levels. Dr Olsen (spinal culinary specialist) for evaluation of MRI and recommendation , help appreciated- Dr Olsen saw and examined patient. No acute surgical intervention at time of assessment Note: patient has been on roustabout crew immunosuppression for lupus * Lipid panel: low cholestrol, low TG, very low HDL; LDL: normal Hgba1c: 4.7 (9) Edema Assessment & Plan: 03/29/17: venous doppler: negative for DVT b/l; was previously on diuretic therapy as outpatient (10) Elevated troponin Assessment & Plan: Dr. Medellin (cardiolology) was consulted. Likely demand ischemia. Previous echocardiogram reveals normal left ventricular function. The patient is currently asymptomatic. If normalizes can consider d/c heparin. add antiplatelet therapy. (11) CHF (congestive heart failure) Assessment & Plan: 04/08: Has been given lasix suspecting diastolic heart failure anticoagulation contraindicated secondary to thrombocytopenia Crestor 20mg POHS off antihypertensive therapy (blood pressure is normal limits) Echocardiogram: left ventricle systolic function is normal/ EF: 75%. Abnormal relaxation pattern. Mild pulm hypertension (12) Prophylactic measure Assessment & Plan: Anticoagulation contraindicated - thrombocytopenia Off of Plavix, discussed with neurology - thrombocytopenia
--- NOTE | 2017-04-08 15:03 | CP.CCUPN ---
CCU Subjective - Physician Review Events Since Last Encounter (Free Text): 04/08/17 14:59 patient seen and examined in the intensive care unit. Overnight patient became very short of breath and hypoxic Placed on BiPAP and received Lasix Worsening bilateral infiltrate on chest x-ray Afebrile No chest pain Denies any cough No active bleeding noted CCU Objective - Vital Signs / Intake & Output Vital Signs (Last 4 hours): Vital Signs Temp Pulse Resp BP Pulse Ox 04/08/17 13:54 108 H 04/08/17 13:49 111 H 17 140/107 H 83 L 04/08/17 12:55 109 H 04/08/17 12:49 109 H 46 H 143/100 H 83 L 04/08/17 12:00 98.2 F 100 04/08/17 11:49 110 H 39 H 134/89 97 Intake and Output (Last 8hrs): Intake & Output 04/07/17 04/08/17 04/08/17 22:59 06:59 14:59 Intake Total 854 223 6298 Output Total 780 1425 200 Balance -280 -1175 1600 Weight 203 lb 1.6 oz Intake: Intake, IV Amount 500 200 600 Left Antecubital Mid-Line 200 200 600 #2 Left Upper arm 300 Oral 50 1200 Output: Urine 780 1425 200 Urethral (Lewis) 780 1425 200 Other: # Bowel Movements 1 - Physical Exam Head: Positive for: Atraumatic, Normocephalic Pupils: Positive for: PERRL Extroacular Muscles: Positive for: EOMI Conjunctiva: Positive for: Normal Mouth: Positive for: Moist Mucous Membranes Neck: Negative for: JVD Respiratory/Chest: Positive for: Clear to Auscultation, Good Air Exchange, Other (on Nasal canula 3L ). Negative for: Respiratory Distress, Accessory Muscle Use, Wheezes, Rales, Rhonchi Cardiovascular: Positive for: Regular Rate and Rhythm, Normal S1, S2. Negative for: Tachycardic, Bradycardic Abdomen: Positive for: Normal Bowel Sounds. Negative for: Tenderness, Distention, Peritoneal Signs Upper Extremity: Positive for: Normal Inspection Lower Extremity: Positive for: Edema. Negative for: Tenderness Neurological: Positive for: GCS=15, Speech Normal Skin: Positive for: Warm, Dry. Negative for: Rashes Psychiatric: Positive for: Alert, Oriented x 3, Normal Insight, Normal Concentration - Medications Active Medications: Active Medications Generic Name Dose Route Start Last Admin Trade Name Freq PRN Reason Stop Dose Admin Albuterol/Ipratropium 3 ml 04/01/17 14:00 04/08/17 13:50 Duoneb 3 Mg/0.5 Mg (3 Ml) Ud INH 3 ml RQ6 IMAN Administration Atovaquone 1,500 mg 04/06/17 10:00 04/08/17 10:38 Mepron PO 1,500 mg DAILY IMAN Administration Emollient Ointment 5 gm 03/31/17 12:18 04/02/17 09:25 Vaseline Oint TOP 5 gm Q4 PRN Administration DRY SKIN Gabapentin 400 mg 03/23/17 10:00 04/08/17 10:38 Neurontin PO 400 mg BID IMAN Administration Hydroxychloroquine Sulfate 200 mg 03/28/17 10:00 04/08/17 10:38 Plaquenil PO 200 mg DAILY IMAN Administration Doxycycline Hyclate 100 mg/ 100 mls @ 100 mls/hr 03/29/17 14:00 04/08/17 02: 28 Sodium Chloride IVPB 100 mls/hr Q12H IMAN Administration Fluconazole 100 mls @ 100 mls/hr 03/30/17 10:00 04/08/17 09:00 Diflucan Iv 200 Mg/100 Ml Ns IVPB 100 mls/hr DAILY IMAN Administration Aztreonam 1 gm/ Sodium 100 mls @ 100 mls/hr 03/30/17 10:30 04/08/17 10:30 Chloride IVPB 100 mls/hr Q8H IMAN Administration Vancomycin/Sodium Chloride 1 gm in 200 mls @ 133.333 mls/hr 04/07/17 09:30 10:00 Vancomycin 1 Gm/Ns 200 Ml IVPB 04/12/17 09:31 133.333 mls/hr Q12H IMAN Administration Methylprednisolone 125 mg 04/06/17 18:00 04/08/17 06:14 Solu-Medrol IV 125 mg Q6 IMAN Administration Ondansetron HCl 4 mg 03/20/17 15:00 03/20/17 15:01 Zofran Inj IVP 4 mg Q6H PRN Administration Nausea/Vomiting Pantoprazole Sodium 40 mg 04/06/17 10:00 04/08/17 10:38 Protonix Ec Tab PO 40 mg DAILY IMAN Administration - Patient Studies Lab Studies: Lab Studies 04/08/17 04/08/17 04/08/17 Range/Units 06:24 06:19 05:03 WBC 14.0 H (4.8-10.8) K/uL RBC 3.21 L (3.80-5.20) Mil/uL Hgb 9.5 L (11.0-16.0) g/dL Hct 28.4 L (34.0-47.0) % MCV 88.4 (81.0-99.0) fL MCH 29.5 (27.0-31.0) pg MCHC 33.4 (33.0-37.0) g/dL RDW 19.4 H (11.5-14.5) % Plt Count 13 L* (130-400) K/uL MPV 10.5 (7.2-11.7) fL Neut % (Auto) 92.8 H (50.0-75.0) % Lymph % (Auto) 1.3 L (20.0-40.0) % Crawford % (Auto) 5.7 (0.0-10.0) % Eos % (Auto) 0.0 (0.0-4.0) % Baso % (Auto) 0.2 (0.0-2.0) % Neut # 13.0 H (1.8-7.0) K/uL Lymph # 0.2 L (1.0-4.3) K/uL Crawford # 0.8 (0.0-0.8) K/uL Eos # 0.0 (0.0-0.7) K/uL Baso # 0.0 (0.0-0.2) K/uL Neutrophils % (Manual) 92 H (50-75) % Band Neutrophils % 1 (0-2) % Lymphocytes % (Manual) 2 L (20-40) % Monocytes % (Manual) 5 (0-10) % Toxic Granulation Present Platelet Estimate Markedly decreased L (NORMAL) Large Platelets Present Polychromasia Slight Hypochromasia (manual) Slight Poikilocytosis (manual Slight Anisocytosis (manual) Slight Target Cells Slight Schistocytes Slight ESR 34 H (0-20) mm/hr Puncture Site Rr pCO2 44 (35-45) mm/Hg pO2 79 L (80-100) mm/Hg HCO3 30.0 H (21-28) mmol/L ABG pH 7.46 H (7.35-7.45) ABG Total CO2 32.7 H (22-28) mmol/L ABG O2 Saturation 98.6 H (95-98) % ABG Base Excess 6.6 H (-2.0-3.0) mmol/L Daljit Test Pos ABG Potassium 3.2 L (3.6-5.2) mmol/L A-a O2 Difference 579.0 mm/Hg Respiratory Index 7.3 Sodium 137 144.0 (132-148) mmol/l Chloride 104 113.0 H (98-107) mmol/L Glucose 129 H (65-105) mg/dl Lactate 1.6 (0.7-2.1) mmol/L Liter Flow Vent Mode Prvc FiO2 100.0 % Potassium 3.2 L (3.6-5.2) mmol/L Carbon Dioxide 30 (22-30) mmol/L Anion Gap 7 L (10-20) BUN 31 H (7-17) mg/dL Creatinine 0.4 L (0.7-1.2) mg/dL Est GFR ( Amer) > 60 Est GFR (Non-Af Amer) > 60 POC Glucose (mg/dL) (65-110) mg/dL Random Glucose 117 H (65-105) mg/dL Calcium 8.6 (8.6-10.4) mg/dl Phosphorus 3.3 (2.5-4.5) mg/dL Magnesium 1.6 (1.6-2.3) mg/dL Total Bilirubin 2.2 H (0.2-1.3) mg/dL AST 114 H (14-36) U/L ALT 121 H D (9-52) U/L Alkaline Phosphatase 307 H D (38-126) U/L Lactate Dehydrogenase 2620 H (313-618) U/L Total Protein 4.8 L (6.3-8.3) g/dL Albumin 2.2 L (3.5-5.0) g/dL Globulin 2.6 (2.2-3.9) gm/dL Albumin/Globulin Ratio 0.8 L (1.0-2.1) Arterial Blood Potassium 3.2 L (3.6-5.2) mmol/L 04/07/17 04/07/17 04/07/17 Range/Units 22:30 17:37 11:42 WBC (4.8-10.8) K/uL RBC (3.80-5.20) Mil/uL Hgb (11.0-16.0) g/dL Hct (34.0-47.0) % MCV (81.0-99.0) fL MCH (27.0-31.0) pg MCHC (33.0-37.0) g/dL RDW (11.5-14.5) % Plt Count (130-400) K/uL MPV (7.2-11.7) fL Neut % (Auto) (50.0-75.0) % Lymph % (Auto) (20.0-40.0) % Crawford % (Auto) (0.0-10.0) % Eos % (Auto) (0.0-4.0) % Baso % (Auto) (0.0-2.0) % Neut # (1.8-7.0) K/uL Lymph # (1.0-4.3) K/uL Crawford # (0.0-0.8) K/uL Eos # (0.0-0.7) K/uL Baso # (0.0-0.2) K/uL Neutrophils % (Manual) (50-75) % Band Neutrophils % (0-2) % Lymphocytes % (Manual) (20-40) % Monocytes % (Manual) (0-10) % Toxic Granulation Platelet Estimate (NORMAL) Large Platelets Polychromasia Hypochromasia (manual) Poikilocytosis (manual Anisocytosis (manual) Target Cells Schistocytes ESR (0-20) mm/hr Puncture Site Rra pCO2 45 (35-45) mm/Hg pO2 69 L (80-100) mm/Hg HCO3 28.0 (21-28) mmol/L ABG pH 7.42 (7.35-7.45) ABG Total CO2 30.6 H (22-28) mmol/L ABG O2 Saturation 97.4 (95-98) % ABG Base Excess 4.0 H (-2.0-3.0) mmol/L Daljit Test Pos ABG Potassium 3.5 L (3.6-5.2) mmol/L A-a O2 Difference 588.0 mm/Hg Respiratory Index 8.5 Sodium 145.0 (132-148) mmol/l Chloride 115.0 H (98-107) mmol/L Glucose 138 H (65-105) mg/dl Lactate 2.4 H (0.7-2.1) mmol/L Liter Flow 15.0 Vent Mode FiO2 100.0 % Potassium (3.6-5.2) mmol/L Carbon Dioxide (22-30) mmol/L Anion Gap (10-20) BUN (7-17) mg/dL Creatinine (0.7-1.2) mg/dL Est GFR ( Amer) Est GFR (Non-Af Amer) POC Glucose (mg/dL) 140 H 141 H (65-110) mg/dL Random Glucose (65-105) mg/dL Calcium (8.6-10.4) mg/dl Phosphorus (2.5-4.5) mg/dL Magnesium (1.6-2.3) mg/dL Total Bilirubin (0.2-1.3) mg/dL AST (14-36) U/L ALT (9-52) U/L Alkaline Phosphatase (38-126) U/L Lactate Dehydrogenase (313-618) U/L Total Protein (6.3-8.3) g/dL Albumin (3.5-5.0) g/dL Globulin (2.2-3.9) gm/dL Albumin/Globulin Ratio (1.0-2.1) Arterial Blood Potassium 3.5 L (3.6-5.2) mmol/L Laboratory Results - last 24 hr 04/07/17 04/07/17 04/07/17 11:42 17:37 22:30 WBC RBC Hgb Hct MCV MCH MCHC RDW Plt Count MPV Neut % (Auto) Lymph % (Auto) Crawford % (Auto) Eos % (Auto) Baso % (Auto) Neut # Lymph # Crawford # Eos # Baso # Neutrophils % (Manual) Band Neutrophils % Lymphocytes % (Manual) Monocytes % (Manual) Toxic Granulation Platelet Estimate Large Platelets Polychromasia Hypochromasia (manual) Poikilocytosis (manual Anisocytosis (manual) Target Cells Schistocytes ESR Puncture Site Rra pCO2 45 pO2 69 L HCO3 28.0 ABG pH 7.42 ABG Total CO2 30.6 H ABG O2 Saturation 97.4 ABG Base Excess 4.0 H Daljit Test Pos ABG Potassium 3.5 L A-a O2 Difference 588.0 Respiratory Index 8.5 Sodium 145.0 Chloride 115.0 H Glucose 138 H Lactate 2.4 H Liter Flow 15.0 Vent Mode FiO2 100.0 Potassium Carbon Dioxide Anion Gap BUN Creatinine Est GFR ( Amer) Est GFR (Non-Af Amer) POC Glucose (mg/dL) 141 H 140 H Random Glucose Calcium Phosphorus Magnesium Total Bilirubin AST ALT Alkaline Phosphatase Lactate Dehydrogenase Total Protein Albumin Globulin Albumin/Globulin Ratio Arterial Blood Potassium 3.5 L 04/08/17 04/08/17 04/08/17 05:03 06:19 06:24 WBC 14.0 H RBC 3.21 L Hgb 9.5 L Hct 28.4 L MCV 88.4 MCH 29.5 MCHC 33.4 RDW 19.4 H Plt Count 13 L* MPV 10.5 Neut % (Auto) 92.8 H Lymph % (Auto) 1.3 L Crawford % (Auto) 5.7 Eos % (Auto) 0.0 Baso % (Auto) 0.2 Neut # 13.0 H Lymph # 0.2 L Crawford # 0.8 Eos # 0.0 Baso # 0.0 Neutrophils % (Manual) 92 H Band Neutrophils % 1 Lymphocytes % (Manual) 2 L Monocytes % (Manual) 5 Toxic Granulation Present Platelet Estimate Markedly decreased L Large Platelets Present Polychromasia Slight Hypochromasia (manual) Slight Poikilocytosis (manual Slight Anisocytosis (manual) Slight Target Cells Slight Schistocytes Slight ESR 34 H Puncture Site Rr pCO2 44 pO2 79 L HCO3 30.0 H ABG pH 7.46 H ABG Total CO2 32.7 H ABG O2 Saturation 98.6 H ABG Base Excess 6.6 H Daljit Test Pos ABG Potassium 3.2 L A-a O2 Difference 579.0 Respiratory Index 7.3 Sodium 144.0 137 Chloride 113.0 H 104 Glucose 129 H Lactate 1.6 Liter Flow Vent Mode Prvc FiO2 100.0 Potassium 3.2 L Carbon Dioxide 30 Anion Gap 7 L BUN 31 H Creatinine 0.4 L Est GFR ( Amer) > 60 Est GFR (Non-Af Amer) > 60 POC Glucose (mg/dL) Random Glucose 117 H Calcium 8.6 Phosphorus 3.3 Magnesium 1.6 Total Bilirubin 2.2 H AST 114 H ALT 121 H D Alkaline Phosphatase 307 H D Lactate Dehydrogenase 2620 H Total Protein 4.8 L Albumin 2.2 L Globulin 2.6 Albumin/Globulin Ratio 0.8 L Arterial Blood Potassium 3.2 L Fingerstick Blood Sugar Results: 169 Critical Care Progress Note - Nutrition Nutrition: Nutrition Category Date Time Status Regular Diet [DIET] Diets 04/06/17 Lunch Active Assessment/Plan (1) Acute respiratory failure Current Visit: Yes Status: Acute Comment: worsening bilateral infiltrate consistent with pulmonary edema Continue BiPAP IV Lasix Continue high-dose steroids Continue IV antibiotics hematology follow-up for thrombocytopenia (2) Anemia Current Visit: Yes Status: Acute (3) Systemic lupus Current Visit: Yes Status: Acute (4) Thrombocytopenia Current Visit: Yes Status: Acute
--- NOTE | 2017-04-08 18:01 | CP.PCM.PN ---
Subjective - Date & Time of Evaluation Date of Evaluation: 04/08/17 Time of Evaluation: 18:00 - Subjective Subjective: pt become more sob CXR worsening will start on pulse steroid bipap may need intubation rheumatology and oncology eval f/u Objective - Vital Signs/Intake and Output Vital Signs (last 24 hours): Temp Pulse Resp BP Pulse Ox 9.5 F L 108 H 18 139/94 H 94 L 04/08/17 16:00 04/08/17 16:25 04/08/17 15:50 04/08/17 15:50 04/08/17 16:00 Intake and Output: 04/08/17 04/08/17 06:59 18:59 Intake Total 450 2050 Output Total 1605 200 Balance -1155 1850 - Medications Medications: Current Medications Albuterol/Ipratropium (Duoneb 3 Mg/0.5 Mg (3 Ml) Ud) 3 ml INH RQ6 [facility] Last Admin: 04/08/17 13:50 Dose: 3 ml Atovaquone (Mepron) 1,500 mg PO DAILY [facility] Last Admin: 04/08/17 10:38 Dose: 1,500 mg Emollient Ointment (Vaseline Oint) 5 gm TOP Q4 PRN PRN Reason: DRY SKIN Last Admin: 04/02/17 09:25 Dose: 5 gm Gabapentin (Neurontin) 400 mg PO BID [facility] Last Admin: 04/08/17 10:38 Dose: 400 mg Hydroxychloroquine Sulfate (Plaquenil) 200 mg PO DAILY [facility] Last Admin: 04/08/17 10:38 Dose: 200 mg Doxycycline Hyclate 100 mg/ (Sodium Chloride) 100 mls @ 100 mls/hr IVPB Q12H [facility] Last Admin: 04/08/17 14:00 Dose: 100 mls/hr Fluconazole (Diflucan Iv 200 Mg/100 Ml Ns) 100 mls @ 100 mls/hr IVPB DAILY [facility] Last Admin: 04/08/17 09:00 Dose: 100 mls/hr Aztreonam 1 gm/ Sodium (Chloride) 100 mls @ 100 mls/hr IVPB Q8H [facility] Last Admin: 04/08/17 10:30 Dose: 100 mls/hr Vancomycin/Sodium Chloride (Vancomycin 1 Gm/Ns 200 Ml) 1 gm in 200 mls @ 133.333 mls/hr IVPB Q12H IMAN Stop: 04/12/17 09:31 Last Admin: 04/08/17 10:00 Dose: 133.333 mls/hr Ondansetron HCl (Zofran Inj) 4 mg IVP Q6H PRN PRN Reason: Nausea/Vomiting Last Admin: 03/20/17 15:01 Dose: 4 mg Pantoprazole Sodium (Protonix Ec Tab) 40 mg PO DAILY IMAN Last Admin: 04/08/17 10:38 Dose: 40 mg - Labs Labs: 04/08/17 06:24 04/08/17 06:19 PT 16.3 SECONDS (9.7-12.2) H 04/05/17 10:54 INR 1.4 04/05/17 10:54 APTT 32 SECONDS (21-34) 04/05/17 10:54
--- NOTE | 2017-04-08 20:32 | CP.PCM.PN ---
Subjective - Date & Time of Evaluation Date of Evaluation: 04/08/17 Time of Evaluation: 18:40 - Subjective Subjective: On bipap, interim events noted. Worsening pulmonary status with worsening CXR steroid dosing increased Objective - Vital Signs/Intake and Output Vital Signs (last 24 hours): Temp Pulse Resp BP Pulse Ox 9.5 F L 97 H 23 136/94 H 100 04/08/17 16:00 04/08/17 20:24 04/08/17 18:50 04/08/17 18:50 04/08/17 18:50 Intake and Output: 04/08/17 04/09/17 18:59 06:59 Intake Total 2350 Output Total 200 Balance 2150 - Medications Medications: Current Medications Albuterol/Ipratropium (Duoneb 3 Mg/0.5 Mg (3 Ml) Ud) 3 ml INH RQ6 [facility] Last Admin: 04/08/17 20:23 Dose: 3 ml Atovaquone (Mepron) 1,500 mg PO DAILY [facility] Last Admin: 04/08/17 10:38 Dose: 1,500 mg Emollient Ointment (Vaseline Oint) 5 gm TOP Q4 PRN PRN Reason: DRY SKIN Last Admin: 04/02/17 09:25 Dose: 5 gm Gabapentin (Neurontin) 400 mg PO BID [facility] Last Admin: 04/08/17 19:05 Dose: Not Given Hydroxychloroquine Sulfate (Plaquenil) 200 mg PO DAILY [facility] Last Admin: 04/08/17 10:38 Dose: 200 mg Doxycycline Hyclate 100 mg/ (Sodium Chloride) 100 mls @ 100 mls/hr IVPB Q12H [facility] Last Admin: 04/08/17 14:00 Dose: 100 mls/hr Fluconazole (Diflucan Iv 200 Mg/100 Ml Ns) 100 mls @ 100 mls/hr IVPB DAILY [facility] Last Admin: 04/08/17 09:00 Dose: 100 mls/hr Aztreonam 1 gm/ Sodium (Chloride) 100 mls @ 100 mls/hr IVPB Q8H [facility] Last Admin: 04/08/17 19:00 Dose: 100 mls/hr Vancomycin/Sodium Chloride (Vancomycin 1 Gm/Ns 200 Ml) 1 gm in 200 mls @ 133.333 mls/hr IVPB Q12H [facility] Stop: 04/12/17 09:31 Last Admin: 04/08/17 10:00 Dose: 133.333 mls/hr Methylprednisolone (Solu-Medrol) 250 mg IV Q6 [facility] Stop: 04/09/17 18:01 Last Admin: 04/08/17 19:00 Dose: 250 mg Ondansetron HCl (Zofran Inj) 4 mg IVP Q6H PRN PRN Reason: Nausea/Vomiting Last Admin: 03/20/17 15:01 Dose: 4 mg Pantoprazole Sodium (Protonix Ec Tab) 40 mg PO DAILY [facility] Last Admin: 04/08/17 10:38 Dose: 40 mg - Labs Labs: 04/08/17 06:24 04/08/17 06:19 PT 16.3 SECONDS (9.7-12.2) H 04/05/17 10:54 INR 1.4 04/05/17 10:54 APTT 32 SECONDS (21-34) 04/05/17 10:54 - Head Exam Head Exam: ATRAUMATIC - Eye Exam Eye Exam: Normal appearance - ENT Exam ENT Exam: Mucous Membranes Dry - Respiratory Exam Respiratory Exam: Decreased Breath Sounds - Cardiovascular Exam Cardiovascular Exam: +S1, +S2 - GI/Abdominal Exam GI & Abdominal Exam: Normal Bowel Sounds - Extremities Exam Extremities Exam: Pedal Edema Assessment and Plan (1) Thrombocytopenia Assessment & Plan: low but stable for last 2 days suspect immune mediated steroids f/u bone marrow biopsy results; prelim flow cytometery negative for clonal/ malignant cells Status: Acute (2) Anemia Assessment & Plan: anemia of chronic disease immune mediated component on steroids f/u bone marrow biopsy Status: Acute (3) Coagulopathy Assessment & Plan: repeat fibrinogen in AM Status: Acute
--- NOTE | 2017-04-08 22:47 | CP.PCM.PN ---
Subjective - Date & Time of Evaluation Date of Evaluation: 04/08/17 Time of Evaluation: 15:05 - Subjective Subjective: Patient developed severe shortness of breath during the night. Requires Bipap and possible intubation. pulse steriods and diuretic therapy suggested. Patient may require Benlysta or Rituxan. Objective - Vital Signs/Intake and Output Vital Signs (last 24 hours): Temp Pulse Resp BP Pulse Ox 98.2 F 96 H 19 116/70 100 04/08/17 20:00 04/08/17 22:00 04/08/17 22:00 04/08/17 21:49 04/08/17 22:00 Intake and Output: 04/08/17 04/09/17 18:59 06:59 Intake Total 2350 200 Output Total 200 500 Balance 2150 -300 - Medications Medications: Current Medications Albuterol/Ipratropium (Duoneb 3 Mg/0.5 Mg (3 Ml) Ud) 3 ml INH RQ6 [facility] Last Admin: 04/08/17 20:23 Dose: 3 ml Atovaquone (Mepron) 1,500 mg PO DAILY [facility] Last Admin: 04/08/17 10:38 Dose: 1,500 mg Emollient Ointment (Vaseline Oint) 5 gm TOP Q4 PRN PRN Reason: DRY SKIN Last Admin: 04/02/17 09:25 Dose: 5 gm Gabapentin (Neurontin) 400 mg PO BID [facility] Last Admin: 04/08/17 19:05 Dose: Not Given Hydroxychloroquine Sulfate (Plaquenil) 200 mg PO DAILY [facility] Last Admin: 04/08/17 10:38 Dose: 200 mg Doxycycline Hyclate 100 mg/ (Sodium Chloride) 100 mls @ 100 mls/hr IVPB Q12H [facility] Last Admin: 04/08/17 14:00 Dose: 100 mls/hr Fluconazole (Diflucan Iv 200 Mg/100 Ml Ns) 100 mls @ 100 mls/hr IVPB DAILY [facility] Last Admin: 04/08/17 09:00 Dose: 100 mls/hr Aztreonam 1 gm/ Sodium (Chloride) 100 mls @ 100 mls/hr IVPB Q8H [facility] Last Admin: 04/08/17 19:00 Dose: 100 mls/hr Vancomycin/Sodium Chloride (Vancomycin 1 Gm/Ns 200 Ml) 1 gm in 200 mls @ 133.333 mls/hr IVPB Q12H [facility] Stop: 04/12/17 09:31 Last Admin: 04/08/17 21:11 Dose: 133.333 mls/hr Methylprednisolone (Solu-Medrol) 250 mg IV Q6 [facility] Stop: 04/09/17 18:01 Last Admin: 04/08/17 19:00 Dose: 250 mg Ondansetron HCl (Zofran Inj) 4 mg IVP Q6H PRN PRN Reason: Nausea/Vomiting Last Admin: 03/20/17 15:01 Dose: 4 mg Pantoprazole Sodium (Protonix Ec Tab) 40 mg PO DAILY [facility] Last Admin: 04/08/17 10:38 Dose: 40 mg - Labs Labs: 04/08/17 06:24 04/08/17 06:19 PT 16.3 SECONDS (9.7-12.2) H 04/05/17 10:54 INR 1.4 04/05/17 10:54 APTT 32 SECONDS (21-34) 04/05/17 10:54 - Constitutional Appears: Chronically Ill - Head Exam Head Exam: NORMOCEPHALIC - Eye Exam Eye Exam: Normal appearance Pupil Exam: NORMAL ACCOMODATION - ENT Exam ENT Exam: Normal External Ear Exam - Neck Exam Neck Exam: Normal Inspection - Respiratory Exam Respiratory Exam: Accessory Muscle Use - Cardiovascular Exam Cardiovascular Exam: Tachycardia - GI/Abdominal Exam GI & Abdominal Exam: Normal Bowel Sounds - Rectal Exam Rectal Exam: Deferred - Exam External exam: NORMAL EXTERNAL EXAM - Extremities Exam Extremities Exam: absent: Pedal Edema - Back Exam Back Exam: NORMAL INSPECTION - Neurological Exam Neurological Exam: Awake - Psychiatric Exam Psychiatric exam: Depressed Assessment and Plan (1) Systemic lupus Status: Acute (2) Anemia Status: Acute (3) CHF (congestive heart failure) Status: Chronic (4) Coagulopathy Status: Acute (5) Leg pain, bilateral Status: Acute (6) Elevated troponin Status: Resolved
[2017-04-09] MEDS: Albuterol-Ipratrop 3 mg / 0.5 (3 ml) UD INH SCH ×4 (02:30→20:14)
[2017-04-09] MEDS: Aztreonam 1 GM in Sodium Chloride 0.9% 100 ML IVPB SCH ×3 (02:55→18:13)
[2017-04-09 06:30] LABS: ABG ALLEN TEST POS; ARTERIAL BLOOD GAS HCO3 30.2 mmol/L (21-28); ARTERIAL BLOOD GAS O2 SAT 99.2 % (95-98); ARTERIAL BLOOD GAS PCO2 44 mm/Hg (35-45); ARTERIAL BLOOD GAS PH 7.46 (7.35-7.45); ARTERIAL BLOOD GAS PO2 109 mm/Hg (80-100); ARTERIAL BLOOD GAS TCO2 32.7 mmol/L (22-28)
[2017-04-09 07:13] LABS: ALT/SGPT 116 U/L (9-52); AST/SGOT 95 U/L (14-36); BLOOD UREA NITROGEN 32 mg/dL (7-17); CALCIUM 8.6 mg/dl (8.6-10.4); GFR AFRICAN-AMERICAN > 60; GFR NON-AFRICAN AMERICAN > 60; MAGNESIUM 1.6 mg/dL (1.6-2.3)
[2017-04-09 09:16] LABS: BASO % 0.1 % (0.0-2.0); HEMOGLOBIN 8.3 g/dL (11.0-16.0); LYMPH # 0.2 K/uL (1.0-4.3); LYMPH % 1.8 % (20.0-40.0); MEAN CELL VOLUME 88.9 fL (81.0-99.0); MEAN CORPUSCULAR HEMOGLOBIN 29.6 pg (27.0-31.0); MEAN CORPUSCULAR HGB CONC 33.3 g/dL (33.0-37.0); MONO # 0.5 K/uL (0.0-0.8); MONO % 4.6 % (0.0-10.0); NEUT % 93.5 % (50.0-75.0); NRBC % 0.1 % (0.0-2.0); RBC 2.81 Mil/uL (3.80-5.20); RED CELL DISTRIBUTION WIDTH 19.8 % (11.5-14.5); WHITE BLOOD COUNT 10.7 K/uL (4.8-10.8)
[2017-04-09 09:18] LABS: PLATELET COUNT 10 K/uL (130-400)
[2017-04-09 09:25] LABS: ANISOCYTOSIS MODERATE; BANDS 1 % (0-2); EOSINOPHIL 1 % (0-4); LYMPHOCYTE 2 % (20-40); MONOCYTE 4 % (0-10); NEUTROPHIL 92 % (50-75); PLATELET ESTIMATE MARKEDLY DECREASED (NORMAL); TOTAL CELLS COUNTED 100
[2017-04-09 09:26] LABS: HYPOCHROMIC SLIGHT; POIKILOCYTOSIS SLIGHT; POLYCHROMIC SLIGHT; SCHISTOCYTES SLIGHT
[2017-04-09] MEDS: Vancomycin 1 gm/NS 200 ml 1 GM/200 ML BAG IVPB SCH (10:09)
[2017-04-09] MEDS: Fluconazole IV 200mg/100 ml NS 100 ML IVPB SCH (10:10)
[2017-04-09] MEDS: Pantoprazole 40 mg EC Tab PO SCH (10:13)
[2017-04-09] MEDS: Atovaquone 750 mg/5 ml Susp UD PO SCH (10:13)
--- NOTE | 2017-04-09 10:22 | CP.PCM.PN ---
Subjective - Date & Time of Evaluation Date of Evaluation: 04/09/17 Time of Evaluation: 10:00 - Subjective Subjective: We are covering for Dr Pillai, he will be returning tomorrow. Patient was seen and examined by me She was overnight had to be placed on Bipap because her SpO2 decreased into the 80s. She reports no chest pain, denied abdominal pain, denied pain in the feet/legs. The patient's platelet count decreased to 10K, her soulmedrol was increased to 250 IV Q6hrs and she remains on Plaquenil. The Hgb was 8.3 at this morning. She probably needs to be started on a new agent for her lupus at some point. She also received lasix yesterday since the CXRAYs may have shown pulmonary edema. Another CXRAY today. I spoke with the patient's son Anitha Awad [phone] and gave him an update. The patient does not want to be intubated again and I explained this to the son. Per my discussion the son he is coming in to talk to her about this. Objective - Vital Signs/Intake and Output Vital Signs (last 24 hours): Temp Pulse Resp BP Pulse Ox 98.3 F 91 H 36 H 122/83 100 04/09/17 08:00 04/09/17 09:08 04/09/17 09:00 04/09/17 08:50 04/09/17 09:00 Intake and Output: 04/09/17 04/09/17 06:59 18:59 Intake Total 530 50 Output Total 820 100 Balance -290 -50 - Medications Medications: Current Medications Albuterol/Ipratropium (Duoneb 3 Mg/0.5 Mg (3 Ml) Ud) 3 ml INH RQ6 [facility] Last Admin: 04/09/17 09:08 Dose: 3 ml Atovaquone (Mepron) 1,500 mg PO DAILY [facility] Last Admin: 04/09/17 10:13 Dose: 1,500 mg Emollient Ointment (Vaseline Oint) 5 gm TOP Q4 PRN PRN Reason: DRY SKIN Last Admin: 04/02/17 09:25 Dose: 5 gm Gabapentin (Neurontin) 400 mg PO BID [facility] Last Admin: 04/09/17 10:13 Dose: 400 mg Hydroxychloroquine Sulfate (Plaquenil) 200 mg PO DAILY [facility] Last Admin: 04/09/17 10:13 Dose: 200 mg Doxycycline Hyclate 100 mg/ (Sodium Chloride) 100 mls @ 100 mls/hr IVPB Q12H [facility] Last Admin: 04/09/17 01:10 Dose: 100 mls/hr Fluconazole (Diflucan Iv 200 Mg/100 Ml Ns) 100 mls @ 100 mls/hr IVPB DAILY [facility] Last Admin: 04/09/17 10:10 Dose: 100 mls/hr Aztreonam 1 gm/ Sodium (Chloride) 100 mls @ 100 mls/hr IVPB Q8H [facility] Last Admin: 04/09/17 10:13 Dose: 100 mls/hr Vancomycin/Sodium Chloride (Vancomycin 1 Gm/Ns 200 Ml) 1 gm in 200 mls @ 133.333 mls/hr IVPB Q12H [facility] Stop: 04/12/17 09:31 Last Admin: 04/09/17 10:09 Dose: 133.333 mls/hr Methylprednisolone (Solu-Medrol) 250 mg IV Q6 [facility] Stop: 04/09/17 18:01 Last Admin: 04/09/17 06:37 Dose: 250 mg Ondansetron HCl (Zofran Inj) 4 mg IVP Q6H PRN PRN Reason: Nausea/Vomiting Last Admin: 03/20/17 15:01 Dose: 4 mg Pantoprazole Sodium (Protonix Ec Tab) 40 mg PO DAILY [facility] Last Admin: 04/09/17 10:13 Dose: 40 mg - Labs Labs: 04/09/17 06:52 04/09/17 06:51 PT 16.3 SECONDS (9.7-12.2) H 04/05/17 10:54 INR 1.4 04/05/17 10:54 APTT 32 SECONDS (21-34) 04/05/17 10:54 - Constitutional Appears: Chronically Ill - Head Exam Head Exam: ATRAUMATIC, NORMAL INSPECTION, NORMOCEPHALIC - Eye Exam Eye Exam: EOMI, Normal appearance - ENT Exam ENT Exam: Mucous Membranes Moist - Respiratory Exam Respiratory Exam: Decreased Breath Sounds, Rales, Rhonchi - GI/Abdominal Exam GI & Abdominal Exam: Soft, Normal Bowel Sounds - Extremities Exam Extremities Exam: Pedal Edema Additional comments: +2 edema bilaterally - Neurological Exam Neurological Exam: Alert, Awake, Oriented x3 Neuro motor strength exam: Left Upper Extremity: 5, Right Upper Extremity: 5 - Psychiatric Exam Psychiatric exam: Normal Affect, Normal Mood - Skin Skin Exam: Normal Color, Warm Assessment and Plan - Assessment and Plan (Free Text) Assessment: Assessment and Plan (1) Acute respiratory failure Assessment & Plan: 04/09: Low SpO2 overnight, on Bipapp. Her solumedrol was increased to 250 IV, pending new CXRAY 04/08: Overnight was given lasix IV after CXRAYs appear worsening from possible pulmonary edema. This morning was on nonrebreather mask 04/07: Feels well, will get a portable film today. She remains on IV solumedrol and plaquenil. 04/06: Patient was successfuly extubated yesterday. She is not in any distress. There wasn't a CXRAY this AM. 04/05: Decreasing platelet count. Remains intubated at this time. Cultures are negative at the moment. 04/04: Remains intubated at this time and on sedation. The CXRAY this AM appeared to have some improvment when compared to previous. Patient was intubated 03/31 given respiratory distress. 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 Possible bronchscopy or broncholavag r/o infection. Patient is thrombocytopenia. Plavix discontinued today. I discussed with neurology prior to discontinuation given worsening thrombocytopenia and consideration for bronch. He does not agree with abnormal brain MRI given patient does not clinically present with symptoms. Mepron 1500mg PO ACL (cover for PCP in light of immunosuppression from lupus therapy) Fluconazole 200mg IVPB daily (since 03/30) Aztreonam 1 gram IVPB Q8H (since 03/30) Doxycycline 100mg IVQ12H (since 03/29) Tamiflu 75mg PO BID (03/30-04/04) Influenza: negative Legionella: negative Mycoplasma IgM: negative ASO: negative Will check HIV given patient is on shelter suppression therapy prior for lupus. 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 Per hematology oncology the preliminary negative for malignancy 04/08: There is preliminary bone marrow biopsy returned and negative for maliginacy. 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 Hgb 8.3 today. If drops further probably needs another blood transfusion. 04/06: As mentioned previously the patient had a bone marrow biopsy History of immune hemolytic anemia-->Signed out from Dr. Pillai 04/02 Hematology: Dr. Olivia Daley on the case help appreciated Direct kimo negative low retic index; hypoproliferative erythroid response unlikely acute hemolysis anemia of chronic disease immunosuppression contribution on marrow Status: Chronic (6) Thrombocytopenia Assessment & Plan: 04/08: There is preliminary bone marrow biopsy returned and negative for maliginacy. 04/07: Today increased to 13K. Still pending results of bone marrow biospy 04/06: Platelet count is only 10K today, had 1 unit of platelets yesterday. Pending results on bone marrow biopsy. Remains on IV steroids 04/05: ICU is tranfusing platelets. Hgb is 9.5 today. Remains off of plavix and ASA. She just had a bone marrow biopsy done by hematology/oncology 04/04: Platelet count again slightly decreased to 15K. Currently off of Plavix if counts do not rebound, will need bone marrow evaluation per heme-onc when clinically stable per latest heme-onc note 04/03-->Discussed with Dr. Wilson, in light of worsening thrombocytopenia, discontinue Plavix. Patient had been on Plavix for abnormal brain MRI previously. 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 Neurology last noted from , neurologically stable. C/w Neurotin 400mg PO BID with PT and DVT ppX Workup: MRI of brain as acute to subacute process of infarct in mid pontine region, does not show clinical picture suggestive of ischemic process affecting pontine region. possible artifactual. Normal EEG. 03/22 Lumbar spine MRI- Multilevel degenerative spondylosis most significantly affecting the L3-L4 and L2-L3 levels and to a lesser degree L4-L5 levels. 03/22 Thoracic spine MRI- moderate to fairly significant degenerative spondylosis of the cervical spine seen on the sagittal counting sequence with the moderate canal stenosis as well as a cord compression most significant at at the C4-C5 and C5-C6 levels. Dr Olsen (spinal debt collection specialist) for evaluation of MRI and recommendation , help appreciated- Dr Olsen saw and examined patient. 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 Medellin (cardiolology) was consulted. Likely demand ischemia. Previous echocardiogram reveals normal left ventricular function. The patient is currently asymptomatic. If normalizes can consider d/c heparin. add antiplatelet therapy. (11) CHF (congestive heart failure) Assessment & Plan: 04/08: Has been given lasix suspecting diastolic heart failure anticoagulation contraindicated secondary to thrombocytopenia Crestor 20mg POHS off antihypertensive therapy (blood pressure is normal limits) Echocardiogram: left ventricle systolic function is normal/ EF: 75%. Abnormal relaxation pattern. Mild pulm hypertension (12) Prophylactic measure Assessment & Plan: Anticoagulation contraindicated - thrombocytopenia Off of Plavix, discussed with neurology - thrombocytopenia
--- NOTE | 2017-04-09 17:38 | CP.PCM.PN ---
Subjective - Date & Time of Evaluation Date of Evaluation: 04/09/17 Time of Evaluation: 10:00 - Subjective Subjective: events noted refusing intubation Objective - Vital Signs/Intake and Output Vital Signs (last 24 hours): Temp Pulse Resp BP Pulse Ox 98.4 F 93 H 23 124/71 100 04/09/17 16:00 04/09/17 17:00 04/09/17 17:00 04/09/17 15:49 04/09/17 17:00 Intake and Output: 04/09/17 04/09/17 06:59 18:59 Intake Total 530 790 Output Total 820 370 Balance -290 420 - Medications Medications: Current Medications Albuterol/Ipratropium (Duoneb 3 Mg/0.5 Mg (3 Ml) Ud) 3 ml INH RQ6 [facility] Last Admin: 04/09/17 13:50 Dose: 3 ml Atovaquone (Mepron) 1,500 mg PO DAILY [facility] Last Admin: 04/09/17 10:13 Dose: 1,500 mg Emollient Ointment (Vaseline Oint) 5 gm TOP Q4 PRN PRN Reason: DRY SKIN Last Admin: 04/02/17 09:25 Dose: 5 gm Gabapentin (Neurontin) 400 mg PO BID [facility] Last Admin: 04/09/17 10:13 Dose: 400 mg Hydroxychloroquine Sulfate (Plaquenil) 200 mg PO DAILY [facility] Last Admin: 04/09/17 10:13 Dose: 200 mg Doxycycline Hyclate 100 mg/ (Sodium Chloride) 100 mls @ 100 mls/hr IVPB Q12H [facility] Last Admin: 04/09/17 13:22 Dose: 100 mls/hr Fluconazole (Diflucan Iv 200 Mg/100 Ml Ns) 100 mls @ 100 mls/hr IVPB DAILY [facility] Last Admin: 04/09/17 10:10 Dose: 100 mls/hr Aztreonam 1 gm/ Sodium (Chloride) 100 mls @ 100 mls/hr IVPB Q8H [facility] Last Admin: 04/09/17 10:13 Dose: 100 mls/hr Vancomycin/Sodium Chloride (Vancomycin 1 Gm/Ns 200 Ml) 1 gm in 200 mls @ 133.333 mls/hr IVPB Q12H [facility] Stop: 04/12/17 09:31 Last Admin: 04/09/17 10:09 Dose: 133.333 mls/hr Methylprednisolone (Solu-Medrol) 250 mg IV Q6 [facility] Stop: 04/09/17 18:01 Last Admin: 04/09/17 12:45 Dose: 250 mg Ondansetron HCl (Zofran Inj) 4 mg IVP Q6H PRN PRN Reason: Nausea/Vomiting Last Admin: 03/20/17 15:01 Dose: 4 mg Pantoprazole Sodium (Protonix Ec Tab) 40 mg PO DAILY [facility] Last Admin: 04/09/17 10:13 Dose: 40 mg - Labs Labs: 04/09/17 06:52 04/09/17 06:51 PT 16.3 SECONDS (9.7-12.2) H 04/05/17 10:54 INR 1.4 04/05/17 10:54 APTT 32 SECONDS (21-34) 04/05/17 10:54 - Constitutional Appears: Chronically Ill - Head Exam Head Exam: NORMOCEPHALIC - Eye Exam Eye Exam: absent: Scleral icterus - ENT Exam ENT Exam: Mucous Membranes Dry - Neck Exam Neck Exam: absent: Lymphadenopathy - Respiratory Exam Respiratory Exam: Decreased Breath Sounds - Cardiovascular Exam Cardiovascular Exam: Tachycardia, REGULAR RHYTHM - GI/Abdominal Exam GI & Abdominal Exam: Distended - Rectal Exam Rectal Exam: Deferred Assessment and Plan (1) Anemia Status: Acute (2) CHF (congestive heart failure) Status: Chronic (3) Coagulopathy Status: Acute (4) Fever Status: Acute (5) Hypoglycemia Status: Acute (6) Leg pain, bilateral Status: Acute (7) Sepsis Status: Acute (8) Thrombocytopenia Status: Acute - Assessment and Plan (Free Text) Assessment: no new positive cultures dr santos on board cont rx
[2017-04-09] MEDS: Petrolatum Oint Foilpak (5 gm) TOP PRN (18:13)
--- NOTE | 2017-04-09 18:14 | RAD ---
HISTORY: low SpO2, history of lupus COMPARISON: Comparison is made with the previous study dated 04/08/2017 FINDINGS: LUNGS: Interval mild improvement in the lungs. PLEURA: Right pleural effusion is noted. There is also left pleural effusion appears more conspicuous compared to the previous exam CARDIOVASCULAR: Normal. OSSEOUS STRUCTURES: No significant abnormalities. VISUALIZED UPPER ABDOMEN: Normal. OTHER FINDINGS: None. IMPRESSION: Diffuse pulmonary congestion/ pulmonary edema and bilateral pleural effusions. Slight improvement in the lungs since the previous exam.
--- NOTE | 2017-04-09 18:23 | CP.CCUPN ---
CCU Subjective - Physician Review Events Since Last Encounter (Free Text): 04/09/17 18:16 still hypoxic on BIPAP. CCU Objective - Vital Signs / Intake & Output Vital Signs (Last 4 hours): Vital Signs Temp Pulse Resp BP Pulse Ox 04/09/17 17:00 93 H 23 100 04/09/17 16:20 89 04/09/17 16:00 98.4 F 95 H 30 H 100 04/09/17 15:49 93 H 32 H 124/71 100 04/09/17 15:00 93 H 32 H 99 04/09/17 14:49 92 H 28 H 121/77 100 Intake and Output (Last 8hrs): Intake & Output 04/09/17 04/09/17 04/09/17 06:59 14:59 22:59 Intake Total 330 790 0 Output Total 320 265 105 Balance 10 525 -105 Weight 203 lb 11.2 oz Intake: Intake, IV Amount 300 400 0 right chest 300 400 0 Oral 30 390 0 Output: Urine 320 265 105 Urethral (Lewis) 320 265 105 Other: # Bowel Movements 0 0 - Physical Exam Head: Positive for: Atraumatic, Normocephalic Pupils: Positive for: PERRL Extroacular Muscles: Positive for: EOMI Conjunctiva: Positive for: Normal Mouth: Positive for: Moist Mucous Membranes Neck: Negative for: JVD Respiratory/Chest: Positive for: Clear to Auscultation, Good Air Exchange, Other (on Nasal canula 3L ). Negative for: Respiratory Distress, Accessory Muscle Use, Wheezes, Rales, Rhonchi Cardiovascular: Positive for: Regular Rate and Rhythm, Normal S1, S2. Negative for: Tachycardic, Bradycardic Abdomen: Positive for: Normal Bowel Sounds. Negative for: Tenderness, Distention, Peritoneal Signs Upper Extremity: Positive for: Normal Inspection Lower Extremity: Positive for: Edema. Negative for: Tenderness Neurological: Positive for: GCS=15, Speech Normal Skin: Positive for: Warm, Dry. Negative for: Rashes Psychiatric: Positive for: Alert, Oriented x 3, Normal Insight, Normal Concentration - Medications Active Medications: Active Medications Generic Name Dose Route Start Last Admin Trade Name Freq PRN Reason Stop Dose Admin Albuterol/Ipratropium 3 ml 04/01/17 14:00 04/09/17 13:50 Duoneb 3 Mg/0.5 Mg (3 Ml) Ud INH 3 ml RQ6 IMAN Administration Atovaquone 1,500 mg 04/06/17 10:00 04/09/17 10:13 Mepron PO 1,500 mg DAILY IMAN Administration Emollient Ointment 5 gm 03/31/17 12:18 04/09/17 18:13 Vaseline Oint TOP 5 gm Q4 PRN Administration DRY SKIN Gabapentin 400 mg 03/23/17 10:00 04/09/17 18:13 Neurontin PO 400 mg BID IMAN Administration Hydroxychloroquine Sulfate 200 mg 03/28/17 10:00 04/09/17 10:13 Plaquenil PO 200 mg DAILY IMAN Administration Fluconazole 100 mls @ 100 mls/hr 03/30/17 10:00 04/09/17 10:10 Diflucan Iv 200 Mg/100 Ml Ns IVPB 100 mls/hr DAILY IMAN Administration Aztreonam 1 gm/ Sodium 100 mls @ 100 mls/hr 03/30/17 10:30 04/09/17 18:13 Chloride IVPB 100 mls/hr Q8H IMAN Administration Linezolid 600 mg in 300 mls @ 200 mls/hr 04/09/17 22:00 Zyvox 600mg/300ml D5w IVPB Q12H IMAN Ondansetron HCl 4 mg 03/20/17 15:00 03/20/17 15:01 Zofran Inj IVP 4 mg Q6H PRN Administration Nausea/Vomiting Pantoprazole Sodium 40 mg 04/06/17 10:00 04/09/17 10:13 Protonix Ec Tab PO 40 mg DAILY IMAN Administration - Patient Studies Lab Studies: Lab Studies 04/09/17 04/09/17 04/09/17 Range/Units 06:52 06:51 05:30 WBC 10.7 (4.8-10.8) K/uL RBC 2.81 L (3.80-5.20) Mil/uL Hgb 8.3 L (11.0-16.0) g/dL Hct 25.0 L (34.0-47.0) % MCV 88.9 (81.0-99.0) fL MCH 29.6 (27.0-31.0) pg MCHC 33.3 (33.0-37.0) g/dL RDW 19.8 H (11.5-14.5) % Plt Count 10 L* (130-400) K/uL MPV 11.0 (7.2-11.7) fL Neut % (Auto) 93.5 H (50.0-75.0) % Lymph % (Auto) 1.8 L (20.0-40.0) % [place] % (Auto) 4.6 (0.0-10.0) % Eos % (Auto) 0.0 (0.0-4.0) % Baso % (Auto) 0.1 (0.0-2.0) % Neut # 10.0 H (1.8-7.0) K/uL Lymph # 0.2 L (1.0-4.3) K/uL [place] # 0.5 (0.0-0.8) K/uL Eos # 0.0 (0.0-0.7) K/uL Baso # 0.0 (0.0-0.2) K/uL Neutrophils % (Manual) 92 H (50-75) % Band Neutrophils % 1 (0-2) % Lymphocytes % (Manual) 2 L (20-40) % Monocytes % (Manual) 4 (0-10) % Eosinophils % (Manual) 1 (0-4) % Platelet Estimate Markedly decreased L (NORMAL) Polychromasia Slight Hypochromasia (manual) Slight Poikilocytosis (manual Slight Basophilic Stippling Slight Anisocytosis (manual) Moderate Schistocytes Slight ESR 30 H (0-20) mm/hr Puncture Site Rradil pCO2 44 (35-45) mm/Hg pO2 109 H (80-100) mm/Hg HCO3 30.2 H (21-28) mmol/L ABG pH 7.46 H (7.35-7.45) ABG Total CO2 32.7 H (22-28) mmol/L ABG O2 Saturation 99.2 H (95-98) % ABG Base Excess 6.8 H (-2.0-3.0) mmol/L ABG Hemoglobin 8.0 L (11.7-17.4) g/dL ABG Carboxyhemoglobin 2.7 H (0.5-1.5) % POC ABG HHb (Measured) 0.8 (0.0-5.0) % ABG Methemoglobin 1.1 (0.0-3.0) % Daljit Test Pos A-a O2 Difference 549.0 mm/Hg Respiratory Index 5.0 Hgb O2 Saturation 95.5 (95.0-98.0) % Vent Mode Bipap FiO2 100.0 % Inspiratory BiPAP 12 Expiratory BiPAP 6 Sodium 137 (132-148) mmol/L Potassium 3.5 L (3.6-5.2) mmol/L Chloride 106 (98-107) mmol/L Carbon Dioxide 32 H (22-30) mmol/L Anion Gap 3 L (10-20) BUN 32 H (7-17) mg/dL Creatinine 0.3 L (0.7-1.2) mg/dL Est GFR ( Amer) > 60 Est GFR (Non-Af Amer) > 60 Random Glucose 105 (65-105) mg/dL Calcium 8.6 (8.6-10.4) mg/dl Phosphorus 3.3 (2.5-4.5) mg/dL Magnesium 1.6 (1.6-2.3) mg/dL Total Bilirubin 2.9 H (0.2-1.3) mg/dL AST 95 H (14-36) U/L ALT 116 H (9-52) U/L Alkaline Phosphatase 229 H D (38-126) U/L Total Protein 4.0 L (6.3-8.3) g/dL Albumin 2.0 L (3.5-5.0) g/dL Globulin 2.1 L (2.2-3.9) gm/dL Albumin/Globulin Ratio 1.0 (1.0-2.1) Laboratory Results - last 24 hr 04/09/17 04/09/17 04/09/17 05:30 06:51 06:52 WBC 10.7 RBC 2.81 L Hgb 8.3 L Hct 25.0 L MCV 88.9 MCH 29.6 MCHC 33.3 RDW 19.8 H Plt Count 10 L* MPV 11.0 Neut % (Auto) 93.5 H Lymph % (Auto) 1.8 L [place] % (Auto) 4.6 Eos % (Auto) 0.0 Baso % (Auto) 0.1 Neut # 10.0 H Lymph # 0.2 L [place] # 0.5 Eos # 0.0 Baso # 0.0 Neutrophils % (Manual) 92 H Band Neutrophils % 1 Lymphocytes % (Manual) 2 L Monocytes % (Manual) 4 Eosinophils % (Manual) 1 Platelet Estimate Markedly decreased L Polychromasia Slight Hypochromasia (manual) Slight Poikilocytosis (manual Slight Basophilic Stippling Slight Anisocytosis (manual) Moderate Schistocytes Slight ESR 30 H Puncture Site Rradil pCO2 44 pO2 109 H HCO3 30.2 H ABG pH 7.46 H ABG Total CO2 32.7 H ABG O2 Saturation 99.2 H ABG Base Excess 6.8 H ABG Hemoglobin 8.0 L ABG Carboxyhemoglobin 2.7 H POC ABG HHb (Measured) 0.8 ABG Methemoglobin 1.1 Daljit Test Pos A-a O2 Difference 549.0 Respiratory Index 5.0 Hgb O2 Saturation 95.5 Vent Mode Bipap FiO2 100.0 Inspiratory BiPAP 12 Expiratory BiPAP 6 Sodium 137 Potassium 3.5 L Chloride 106 Carbon Dioxide 32 H Anion Gap 3 L BUN 32 H Creatinine 0.3 L Est GFR ( Amer) > 60 Est GFR (Non-Af Amer) > 60 Random Glucose 105 Calcium 8.6 Phosphorus 3.3 Magnesium 1.6 Total Bilirubin 2.9 H AST 95 H ALT 116 H Alkaline Phosphatase 229 H D Total Protein 4.0 L Albumin 2.0 L Globulin 2.1 L Albumin/Globulin Ratio 1.0 Fingerstick Blood Sugar Results: 169 Review of Systems - Review of Systems All systems: reviewed and no additional remarkable complaints except - EENT Nose/Mouth/Throat: Dry Mouth Critical Care Progress Note - Nutrition Nutrition: Nutrition Category Date Time Status Regular Diet [DIET] Diets 04/06/17 Lunch Active Assessment/Plan (1) Acute respiratory failure Assessment and plan: Lupus pneumonitis, 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 Continue Solu-Medrol 250 mg IV every 6 , continue Plaquenil. Rheumatology consulted and following, patient may need immunosuppressant Rituxan. Patient has anemia and severe thrombocytopenia, transfusing platelets.Triple-lumen catheter placed. Current Visit: Yes Status: Acute Comment: worsening bilateral infiltrate consistent with pulmonary edema Continue BiPAP IV Lasix Continue high-dose steroids Continue IV antibiotics hematology follow-up for thrombocytopenia
--- NOTE | 2017-04-09 18:54 | PCM.PROC ---
Procedures Attestation:: I certify that I have explained the specified Operation(s) or Procedure(s), risks, benefits and reasonable alternatives to the Patient and/or other person responsible. The opportunity was given to ask questions and all questions answered - Central Line Placement Right Femoral Triple Lumen Catheter Aseptic technique was employed throughout the procedure: Hand Hygiene done prior to procedure, Full sterile barriers (mask, hair cover, sterile gown, sterile gloves), Full body sterile drape, Chloraprep Antiseptic: 2 minute prep for Femoral CVP Time Out Performed: No Pt. Placed on Pulse Ox Monitor: Yes Central Line Prep: Chlorhexidine-Alcohol Combination Local Anesthesia Used: Lidocaine 1% Amount of Anesthesia Used (mls): 20 Ultrasound Used for Placement: Yes Central Line Lumen Inserted: triple Central Line Length: 20 cm Post Procedure: Sutured in Place, Good Blood Return, All Ports Aspirated, Flushed, Capped, Sterile Dressing Applied Secured by: Suture Post procedure dressing: Clear vapor permeable, Chlorhexidine disc (Biopatch) Post Procedure X-Ray: No Patient Tolerated Procedure: Well, No Complications
[2017-04-09] MEDS: Linezolid 600 mg in D5W 300 ml 600 MG/300 ML BAG IVPB SCH (21:06)
[2017-04-10] MEDS: Albuterol-Ipratrop 3 mg / 0.5 (3 ml) UD INH SCH ×4 (02:44→19:30)
[2017-04-10] MEDS: Aztreonam 1 GM in Sodium Chloride 0.9% 100 ML IVPB SCH ×3 (02:44→18:40)
[2017-04-10 06:49] LABS: BASO % 0.1 % (0.0-2.0); LYMPH # 0.2 K/uL (1.0-4.3); LYMPH % 1.2 % (20.0-40.0); MEAN CELL VOLUME 88.6 fL (81.0-99.0); MEAN CORPUSCULAR HEMOGLOBIN 29.5 pg (27.0-31.0); MEAN CORPUSCULAR HGB CONC 33.2 g/dL (33.0-37.0); MONO # 0.5 K/uL (0.0-0.8); MONO % 3.9 % (0.0-10.0); NEUT % 94.8 % (50.0-75.0); RBC 2.39 Mil/uL (3.80-5.20); RED CELL DISTRIBUTION WIDTH 19.6 % (11.5-14.5); WHITE BLOOD COUNT 12.7 K/uL (4.8-10.8)
[2017-04-10 06:59] LABS: PLATELET COUNT 9 K/uL (130-400)
[2017-04-10 07:29] LABS: ALB/GLOB RATIO 0.9 (1.0-2.1); ALT/SGPT 119 U/L (9-52); AST/SGOT 87 U/L (14-36); BLOOD UREA NITROGEN 33 mg/dL (7-17); CALCIUM 9.2 mg/dl (8.6-10.4); GFR AFRICAN-AMERICAN > 60; GFR NON-AFRICAN AMERICAN > 60; MAGNESIUM 1.7 mg/dL (1.6-2.3)
--- NOTE | 2017-04-10 09:17 | RAD ---
HISTORY: on bipap 100% COMPARISON: Comparison is made with 04/09/2017 FINDINGS: LUNGS: Interval improvement in the lungs since the previous exam. Residual hazy diffuse opacity and reticular opacities in the lungs noted. PLEURA: Left larger than right pleural effusions seen. CARDIOVASCULAR: The cardiac silhouette is mildly enlarged. OSSEOUS STRUCTURES: No significant abnormalities. VISUALIZED UPPER ABDOMEN: Normal. OTHER FINDINGS: None. IMPRESSION: Interval improvement in the lungs since the previous exam. Bilateral pleural effusion larger on the left.
[2017-04-10 09:24] LABS: BANDS 6 % (0-2); LYMPHOCYTE 2 % (20-40); MONOCYTE 2 % (0-10); NEUTROPHIL 90 % (50-75); PLATELET ESTIMATE MARKEDLY DECREASED (NORMAL); TOTAL CELLS COUNTED 100
[2017-04-10 09:25] LABS: LARGE PLATELETS PRESENT
[2017-04-10 09:26] LABS: ANISOCYTOSIS MODERATE; TOXIC GRANULATION PRESENT
[2017-04-10 09:27] LABS: HYPOCHROMIC SLIGHT; POLYCHROMIC SLIGHT
[2017-04-10 09:28] LABS: POIKILOCYTOSIS SLIGHT; SCHISTOCYTES SLIGHT
[2017-04-10] MEDS: Atovaquone 750 mg/5 ml Susp UD PO SCH (09:36)
[2017-04-10] MEDS: Fluconazole IV 200mg/100 ml NS 100 ML IVPB SCH (09:36)
[2017-04-10] MEDS: Petrolatum Oint Foilpak (5 gm) TOP PRN ×2 (09:36→22:00)
[2017-04-10] MEDS: Pantoprazole 40 mg EC Tab PO SCH (09:38)
[2017-04-10] MEDS: Linezolid 600 mg in D5W 300 ml 600 MG/300 ML BAG IVPB SCH ×2 (11:35→22:00)
--- NOTE | 2017-04-10 17:45 | CP.CCUPN ---
CCU Subjective - Physician Review Events Since Last Encounter (Free Text): 04/10/17 17:37 moments of distress on BIPAP. Asked patient again if she wanted to be intubated if she got worse and she repeatedly said no to intubation, with the understanding she could without it and that she would rather be made comfortable. CCU Objective - Vital Signs / Intake & Output Vital Signs (Last 4 hours): Vital Signs Temp Pulse Resp BP Pulse Ox 04/10/17 17:16 117 H 36 H 145/89 98 04/10/17 17:02 97.7 F 112 H 32 H 145/89 04/10/17 17:00 115 H 34 H 98 04/10/17 16:50 123 H 34 H 141/98 H 98 04/10/17 16:47 97.4 F L 119 H 33 H 141/98 H 04/10/17 16:32 97.3 F L 118 H 35 H 149/92 H 04/10/17 16:20 119 H 34 H 149/92 H 98 04/10/17 16:00 97.3 F L 119 H 35 H 96 04/10/17 15:44 123 H 35 H 93 L 04/10/17 15:42 125 H 34 H 153/100 H 92 L 04/10/17 15:00 128 H 37 H 92 L 04/10/17 14:55 162/119 H 04/10/17 14:45 130 H 34 H 162/119 H 81 L 04/10/17 14:40 129 H 34 H 155/126 H 80 L 04/10/17 14:35 97.6 F 110 H 34 H 135/85 04/10/17 14:30 97.6 F 110 H 34 H 135/85 04/10/17 14:08 98 H 04/10/17 14:03 96 H 38 H 98 04/10/17 14:00 99 H 40 H 97 04/10/17 13:48 101 H 36 H 142/89 98 Intake and Output (Last 8hrs): Intake & Output 04/10/17 04/10/17 04/10/17 06:59 14:59 22:59 Intake Total 150 1553 20 Output Total 180 663 4614 Balance -245 1258 -1180 Weight 200 lb 11.2 oz Intake: Intake, IV Amount 100 650 Right Medial Port Femoral 100 Right Proximal Port 100 550 Femoral Oral 50 650 20 Blood Product 223 0 Apheresis Plts Acda Lr 223 1st Con Unit [id number] Apheresis Plts Acda Lr 0 1st Con Unit [id number] Other 30 Apheresis Plts Acda Lr 30 1st Con Unit [id number] Output: Urine 032 575 0885 Urethral (Lewis) [phone] - Physical Exam Head: Positive for: Atraumatic, Normocephalic Pupils: Positive for: PERRL Extroacular Muscles: Positive for: EOMI Conjunctiva: Positive for: Normal Mouth: Positive for: Moist Mucous Membranes Neck: Negative for: JVD Respiratory/Chest: Positive for: Clear to Auscultation, Good Air Exchange, Other (on Nasal canula 3L ). Negative for: Respiratory Distress, Accessory Muscle Use, Wheezes, Rales, Rhonchi Cardiovascular: Positive for: Regular Rate and Rhythm, Normal S1, S2. Negative for: Tachycardic, Bradycardic Abdomen: Positive for: Normal Bowel Sounds. Negative for: Tenderness, Distention, Peritoneal Signs Upper Extremity: Positive for: Normal Inspection Lower Extremity: Positive for: Edema. Negative for: Tenderness Neurological: Positive for: GCS=15, Speech Normal Skin: Positive for: Warm, Dry. Negative for: Rashes Psychiatric: Positive for: Alert, Oriented x 3, Normal Insight, Normal Concentration - Medications Active Medications: Active Medications Generic Name Dose Route Start Last Admin Trade Name Freq PRN Reason Stop Dose Admin Albuterol/Ipratropium 3 ml 04/01/17 14:00 04/10/17 14:08 Duoneb 3 Mg/0.5 Mg (3 Ml) Ud INH 3 ml RQ6 IMAN Administration Atovaquone 1,500 mg 04/06/17 10:00 04/10/17 09:36 Mepron PO 1,500 mg DAILY IMAN Administration Emollient Ointment 5 gm 03/31/17 12:18 04/10/17 09:36 Vaseline Oint TOP 5 gm Q4 PRN Administration DRY SKIN Gabapentin 400 mg 03/23/17 10:00 04/10/17 17:18 Neurontin PO 400 mg BID IMAN Administration Hydroxychloroquine Sulfate 200 mg 03/28/17 10:00 04/10/17 09:36 Plaquenil PO 200 mg DAILY IMAN Administration Fluconazole 100 mls @ 100 mls/hr 03/30/17 10:00 04/10/17 09:36 Diflucan Iv 200 Mg/100 Ml Ns IVPB 100 mls/hr DAILY IMAN Administration Aztreonam 1 gm/ Sodium 100 mls @ 100 mls/hr 03/30/17 10:30 04/10/17 10:34 Chloride IVPB 100 mls/hr Q8H IMAN Administration Linezolid 600 mg in 300 mls @ 200 mls/hr 04/09/17 22:00 04/10/17 11:35 Zyvox 600mg/300ml D5w IVPB 200 mls/hr Q12H IMAN Administration Methylprednisolone 250 mg 04/10/17 00:00 04/10/17 11:41 Solu-Medrol IV 250 mg Q6H IMAN Administration Ondansetron HCl 4 mg 03/20/17 15:00 03/20/17 15:01 Zofran Inj IVP 4 mg Q6H PRN Administration Nausea/Vomiting Pantoprazole Sodium 40 mg 04/06/17 10:00 04/10/17 09:38 Protonix Ec Tab PO 40 mg DAILY IMAN Administration - Patient Studies Lab Studies: Lab Studies 04/10/17 04/10/17 Range/Units 06:43 06:43 WBC 12.7 H (4.8-10.8) K/uL RBC 2.39 L (3.80-5.20) Mil/uL Hgb 7.0 L (11.0-16.0) g/dL Hct 21.1 L (34.0-47.0) % MCV 88.6 (81.0-99.0) fL MCH 29.5 (27.0-31.0) pg MCHC 33.2 (33.0-37.0) g/dL RDW 19.6 H (11.5-14.5) % Plt Count 9 L* (130-400) K/uL MPV 11.0 (7.2-11.7) fL Neut % (Auto) 94.8 H (50.0-75.0) % Lymph % (Auto) 1.2 L (20.0-40.0) % [place] % (Auto) 3.9 (0.0-10.0) % Eos % (Auto) 0.0 (0.0-4.0) % Baso % (Auto) 0.1 (0.0-2.0) % Neut # 12.0 H (1.8-7.0) K/uL Lymph # 0.2 L (1.0-4.3) K/uL [place] # 0.5 (0.0-0.8) K/uL Eos # 0.0 (0.0-0.7) K/uL Baso # 0.0 (0.0-0.2) K/uL Neutrophils % (Manual) 90 H (50-75) % Band Neutrophils % 6 H (0-2) % Lymphocytes % (Manual) 2 L (20-40) % Monocytes % (Manual) 2 (0-10) % Toxic Granulation Present Platelet Estimate Markedly decreased L (NORMAL) Large Platelets Present Polychromasia Slight Hypochromasia (manual) Slight Poikilocytosis (manual Slight Basophilic Stippling Slight Anisocytosis (manual) Moderate Schistocytes Slight ESR 30 H (0-20) mm/hr Sodium 142 (132-148) mmol/L Potassium 3.2 L (3.6-5.2) mmol/L Chloride 107 (98-107) mmol/L Carbon Dioxide 34 H (22-30) mmol/L Anion Gap 4 L (10-20) BUN 33 H (7-17) mg/dL Creatinine 0.4 L (0.7-1.2) mg/dL Est GFR ( Amer) > 60 Est GFR (Non-Af Amer) > 60 Random Glucose 109 H (65-105) mg/dL Calcium 9.2 (8.6-10.4) mg/dl Phosphorus 2.9 (2.5-4.5) mg/dL Magnesium 1.7 (1.6-2.3) mg/dL Total Bilirubin 2.7 H (0.2-1.3) mg/dL AST 87 H (14-36) U/L ALT 119 H (9-52) U/L Alkaline Phosphatase 275 H D (38-126) U/L Total Protein 4.3 L (6.3-8.3) g/dL Albumin 2.0 L (3.5-5.0) g/dL Globulin 2.3 (2.2-3.9) gm/dL Albumin/Globulin Ratio 0.9 L (1.0-2.1) Laboratory Results - last 24 hr 04/10/17 04/10/17 06:43 06:43 WBC 12.7 H RBC 2.39 L Hgb 7.0 L Hct 21.1 L MCV 88.6 MCH 29.5 MCHC 33.2 RDW 19.6 H Plt Count 9 L* MPV 11.0 Neut % (Auto) 94.8 H Lymph % (Auto) 1.2 L [place] % (Auto) 3.9 Eos % (Auto) 0.0 Baso % (Auto) 0.1 Neut # 12.0 H Lymph # 0.2 L [place] # 0.5 Eos # 0.0 Baso # 0.0 Neutrophils % (Manual) 90 H Band Neutrophils % 6 H Lymphocytes % (Manual) 2 L Monocytes % (Manual) 2 Toxic Granulation Present Platelet Estimate Markedly decreased L Large Platelets Present Polychromasia Slight Hypochromasia (manual) Slight Poikilocytosis (manual Slight Basophilic Stippling Slight Anisocytosis (manual) Moderate Schistocytes Slight ESR 30 H Sodium 142 Potassium 3.2 L Chloride 107 Carbon Dioxide 34 H Anion Gap 4 L BUN 33 H Creatinine 0.4 L Est GFR ( Amer) > 60 Est GFR (Non-Af Amer) > 60 Random Glucose 109 H Calcium 9.2 Phosphorus 2.9 Magnesium 1.7 Total Bilirubin 2.7 H AST 87 H ALT 119 H Alkaline Phosphatase 275 H D Total Protein 4.3 L Albumin 2.0 L Globulin 2.3 Albumin/Globulin Ratio 0.9 L Fingerstick Blood Sugar Results: 169 Review of Systems - Review of Systems All systems: reviewed and no additional remarkable complaints except - Respiratory Respiratory: Dyspnea Critical Care Progress Note - Nutrition Nutrition: Nutrition Category Date Time Status Regular Diet [DIET] Diets 04/06/17 Lunch Active Assessment/Plan (1) Acute respiratory failure Assessment and plan: Lupus pneumonitis, 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 Continue Solu-Medrol 250 mg IV every 6 , continue Plaquenil. Rheumatology consulted and following, patient may need immunosuppressant Rituxan. Patient has anemia and severe thrombocytopenia, transfused platelets yesterday and count paradoxically went down. Transfusing again today, 2 units, if recurrent drop, must consider TTP/ITP, will followup with Hem/Onc - Dr. Daley. Bandemia, Continue broad spectrum coverage with Azactam, Diflucan and Zyvox. (04/09/17) Triple-lumen catheter placed. DNI, Current Visit: Yes Status: Acute Comment: worsening bilateral infiltrate consistent with pulmonary edema Continue BiPAP IV Lasix Continue high-dose steroids Continue IV antibiotics hematology follow-up for thrombocytopenia
[2017-04-10 20:19] LABS: MEAN CELL VOLUME 89.1 fL (81.0-99.0); MEAN CORPUSCULAR HEMOGLOBIN 29.2 pg (27.0-31.0); MEAN CORPUSCULAR HGB CONC 32.8 g/dL (33.0-37.0); MEAN PLATELET VOLUME 8.4 fL (7.2-11.7); RBC 2.38 Mil/uL (3.80-5.20); RED CELL DISTRIBUTION WIDTH 19.5 % (11.5-14.5); WHITE BLOOD COUNT 14.4 K/uL (4.8-10.8)
--- NOTE | 2017-04-10 21:45 | CP.PCM.PN ---
Subjective - Date & Time of Evaluation Date of Evaluation: 04/10/17 Time of Evaluation: 15:35 - Subjective Subjective: Patient still on Bipap and refusing intubation. Platlets 9,000 and not responding to pulse therapy. Suggest we consider low dose protocol for refractory thrombocytopenia of Rituxan 100mg IV weekly for four weeks. Methylprednisolone 100mg intravenously should be given 30 minutes prior to each infusion. Objective - Vital Signs/Intake and Output Vital Signs (last 24 hours): Temp Pulse Resp BP Pulse Ox 97.6 F 96 H 31 H 134/86 99 04/10/17 18:15 04/10/17 19:30 04/10/17 19:00 04/10/17 18:15 04/10/17 19:00 Intake and Output: 04/10/17 04/11/17 18:59 06:59 Intake Total 1920 100 Output Total 1795 150 Balance 125 -50 - Medications Medications: Current Medications Albuterol/Ipratropium (Duoneb 3 Mg/0.5 Mg (3 Ml) Ud) 3 ml INH RQ6 [facility] Last Admin: 04/10/17 19:30 Dose: 3 ml Atovaquone (Mepron) 1,500 mg PO DAILY [facility] Last Admin: 04/10/17 09:36 Dose: 1,500 mg Emollient Ointment (Vaseline Oint) 5 gm TOP Q4 PRN PRN Reason: DRY SKIN Last Admin: 04/10/17 09:36 Dose: 5 gm Gabapentin (Neurontin) 400 mg PO BID [facility] Last Admin: 04/10/17 17:18 Dose: 400 mg Hydroxychloroquine Sulfate (Plaquenil) 200 mg PO DAILY [facility] Last Admin: 04/10/17 09:36 Dose: 200 mg Fluconazole (Diflucan Iv 200 Mg/100 Ml Ns) 100 mls @ 100 mls/hr IVPB DAILY [facility] Last Admin: 04/10/17 09:36 Dose: 100 mls/hr Aztreonam 1 gm/ Sodium (Chloride) 100 mls @ 100 mls/hr IVPB Q8H [facility] Last Admin: 04/10/17 18:40 Dose: 100 mls/hr Linezolid (Zyvox 600mg/300ml D5w) 600 mg in 300 mls @ 200 mls/hr IVPB Q12H [facility] Last Admin: 04/10/17 11:35 Dose: 200 mls/hr Methylprednisolone (Solu-Medrol) 250 mg IV Q6H IMAN Last Admin: 04/10/17 17:57 Dose: 250 mg Ondansetron HCl (Zofran Inj) 4 mg IVP Q6H PRN PRN Reason: Nausea/Vomiting Last Admin: 03/20/17 15:01 Dose: 4 mg Pantoprazole Sodium (Protonix Ec Tab) 40 mg PO DAILY IMAN Last Admin: 04/10/17 09:38 Dose: 40 mg - Labs Labs: 04/10/17 20:11 04/10/17 06:43 PT 16.3 SECONDS (9.7-12.2) H 04/05/17 10:54 INR 1.4 04/05/17 10:54 APTT 32 SECONDS (21-34) 04/05/17 10:54 - Constitutional Appears: Chronically Ill - Head Exam Head Exam: NORMOCEPHALIC - Eye Exam Eye Exam: Normal appearance - ENT Exam ENT Exam: Normal Exam - Respiratory Exam Respiratory Exam: Decreased Breath Sounds - Cardiovascular Exam Cardiovascular Exam: REGULAR RHYTHM - GI/Abdominal Exam GI & Abdominal Exam: Normal Bowel Sounds - Exam External exam: NORMAL EXTERNAL EXAM - Back Exam Back Exam: NORMAL INSPECTION - Skin Skin Exam: Dry Assessment and Plan (1) Systemic lupus Status: Acute (2) Anemia Status: Acute (3) CHF (congestive heart failure) Status: Chronic (4) Coagulopathy Status: Acute (5) Leg pain, bilateral Status: Acute (6) Elevated troponin Status: Resolved
[2017-04-11] MEDS: Albuterol-Ipratrop 3 mg / 0.5 (3 ml) UD INH SCH ×4 (01:13→20:26)
[2017-04-11] MEDS: Aztreonam 1 GM in Sodium Chloride 0.9% 100 ML IVPB SCH ×3 (02:30→17:36)
[2017-04-11 06:35] LABS: BASO # 0.1 K/uL (0.0-0.2); BASO % 0.3 % (0.0-2.0); HEMOGLOBIN 7.5 g/dL (11.0-16.0); LYMPH # 0.2 K/uL (1.0-4.3); LYMPH % 1.2 % (20.0-40.0); MEAN CELL VOLUME 89.7 fL (81.0-99.0); MEAN CORPUSCULAR HEMOGLOBIN 29.6 pg (27.0-31.0); MEAN PLATELET VOLUME 9.8 fL (7.2-11.7); MONO # 0.9 K/uL (0.0-0.8); MONO % 4.1 % (0.0-10.0); NEUT # 19.5 K/uL (1.8-7.0); NEUT % 94.4 % (50.0-75.0); NRBC % 0.1 % (0.0-2.0); RBC 2.52 Mil/uL (3.80-5.20); RED CELL DISTRIBUTION WIDTH 19.7 % (11.5-14.5); WHITE BLOOD COUNT 20.7 K/uL (4.8-10.8)
[2017-04-11 06:43] LABS: PLATELET COUNT 16 K/uL (130-400)
[2017-04-11 06:51] LABS: ALB/GLOB RATIO 0.9 (1.0-2.1); ALBUMIN 2.5 g/dL (3.5-5.0); ALT/SGPT 129 U/L (9-52); AST/SGOT 83 U/L (14-36); BLOOD UREA NITROGEN 29 mg/dL (7-17); CALCIUM 9.1 mg/dl (8.6-10.4); GFR AFRICAN-AMERICAN > 60; GFR NON-AFRICAN AMERICAN > 60; MAGNESIUM 1.5 mg/dL (1.6-2.3)
[2017-04-11] MEDS ORDERED: Magnesium Sulfate 1 gm in D5W 1 GM/100 ML BAG IVPB ONE (08:21)
--- NOTE | 2017-04-11 08:28 | CP.CCUPN ---
<Thais Luz - Last Filed: 04/11/17 13:08> CCU Subjective - Physician Review Subjective (Free Text): 04/11/17 08:26 Patient seen and examined at bedside. Patient resting in bed on BiPAP. Pt has no new complaints at this time. No acute events over night. Still having some work of breathing but refusing intubation. Patient denies chest pain, palpitations, abdominal pain, n/v/d. CCU Objective - Vital Signs / Intake & Output Vital Signs (Last 4 hours): Vital Signs Pulse Resp BP Pulse Ox 04/11/17 07:43 127 H 25 H 136/97 H 04/11/17 07:00 115 H 33 H 92 L 04/11/17 06:43 118 H 33 H 137/94 H 83 L 04/11/17 06:00 121 H 31 H 92 L 04/11/17 05:44 132 H 163/109 H 98 04/11/17 05:02 100 H 04/11/17 05:00 106 H 26 H 92 L 04/11/17 04:43 97 H 17 118/78 91 L Intake and Output (Last 8hrs): Intake & Output 04/10/17 04/11/17 04/11/17 22:59 06:59 14:59 Intake Total 717 150 0 Output Total 1900 1625 50 Balance -1183 -1475 -50 Weight 206 lb Intake: Intake, IV Amount 300 100 0 Right Medial Port Femoral 300 100 0 Oral 70 50 Blood Product 297 Apheresis Plts Acda Lr 297 1st Con Unit [id number] Other 50 Apheresis Plts Acda Lr 50 1st Con Unit [id number] Output: Urine 1900 1625 50 Urethral (Lewis) 1900 1625 50 Other: # Bowel Movements 1 - Physical Exam Head: Positive for: Atraumatic, Normocephalic Pupils: Positive for: PERRL Extroacular Muscles: Positive for: EOMI Conjunctiva: Positive for: Normal Mouth: Positive for: Moist Mucous Membranes Neck: Negative for: JVD Respiratory/Chest: Positive for: Clear to Auscultation, Accessory Muscle Use, Tachypneic, Other (on Nasal canula 3L ). Negative for: Respiratory Distress, Wheezes, Rales, Rhonchi Cardiovascular: Positive for: Normal S1, S2, Tachycardic. Negative for: Bradycardic Abdomen: Positive for: Normal Bowel Sounds. Negative for: Tenderness, Distention, Peritoneal Signs Upper Extremity: Positive for: Edema Lower Extremity: Positive for: Edema. Negative for: Tenderness Neurological: Positive for: GCS=15, Speech Normal Skin: Positive for: Warm, Dry. Negative for: Rashes Psychiatric: Positive for: Alert, Oriented x 3, Normal Insight, Normal Concentration - Medications Active Medications: Active Medications Generic Name Dose Route Start Last Admin Trade Name Freq PRN Reason Stop Dose Admin Albuterol/Ipratropium 3 ml 04/01/17 14:00 04/11/17 07:39 Duoneb 3 Mg/0.5 Mg (3 Ml) Ud INH 3 ml RQ6 IMAN Administration Atovaquone 1,500 mg 04/06/17 10:00 04/10/17 09:36 Mepron PO 1,500 mg DAILY IMAN Administration Emollient Ointment 5 gm 03/31/17 12:18 04/10/17 22:00 Vaseline Oint TOP 5 gm Q4 PRN Administration DRY SKIN Gabapentin 400 mg 03/23/17 10:00 04/10/17 17:18 Neurontin PO 400 mg BID IMAN Administration Hydroxychloroquine Sulfate 200 mg 03/28/17 10:00 04/10/17 09:36 Plaquenil PO 200 mg DAILY IMAN Administration Fluconazole 100 mls @ 100 mls/hr 03/30/17 10:00 04/10/17 09:36 Diflucan Iv 200 Mg/100 Ml Ns IVPB 100 mls/hr DAILY IMAN Administration Aztreonam 1 gm/ Sodium 100 mls @ 100 mls/hr 03/30/17 10:30 04/11/17 02:30 Chloride IVPB 100 mls/hr Q8H IMAN Administration Linezolid 600 mg in 300 mls @ 200 mls/hr 04/09/17 22:00 04/10/17 22:00 Zyvox 600mg/300ml D5w IVPB 200 mls/hr Q12H IMAN Administration Magnesium Sulfate/Dextrose 1 gm in 100 mls @ 200 mls/hr 04/11/17 08:21 Magnesium Sulfate 1 Gm/100 Ml D5w IVPB 04/11/17 08:50 ONCE ONE Potassium Chloride 20 meq in 100 mls @ 50 mls/hr 04/11/17 08:30 Potassium Chloride 20 Meq/100 Ml IVPB 04/11/17 14:29 Q4H IMAN Methylprednisolone 250 mg 04/10/17 00:00 04/11/17 06:10 Solu-Medrol IV 250 mg Q6H IMAN Administration Ondansetron HCl 4 mg 03/20/17 15:00 03/20/17 15:01 Zofran Inj IVP 4 mg Q6H PRN Administration Nausea/Vomiting Pantoprazole Sodium 40 mg 04/06/17 10:00 04/10/17 09:38 Protonix Ec Tab PO 40 mg DAILY IMAN Administration - Patient Studies Lab Studies: Lab Studies 04/11/17 04/11/17 04/10/17 Range/Units 06:20 06:20 20:11 WBC 20.7 H 14.4 H (4.8-10.8) K/uL RBC 2.52 L 2.38 L (3.80-5.20) Mil/uL Hgb 7.5 L 7.0 L (11.0-16.0) g/dL Hct 22.6 L 21.2 L (34.0-47.0) % MCV 89.7 89.1 (81.0-99.0) fL MCH 29.6 29.2 (27.0-31.0) pg MCHC 33.0 32.8 L (33.0-37.0) g/dL RDW 19.7 H 19.5 H (11.5-14.5) % Plt Count 16 L* D 30 L* D (130-400) K/uL MPV 9.8 8.4 (7.2-11.7) fL Neut % (Auto) 94.4 H (50.0-75.0) % Lymph % (Auto) 1.2 L (20.0-40.0) % [place] % (Auto) 4.1 (0.0-10.0) % Eos % (Auto) 0.0 (0.0-4.0) % Baso % (Auto) 0.3 (0.0-2.0) % Neut # 19.5 H (1.8-7.0) K/uL Lymph # 0.2 L (1.0-4.3) K/uL [place] # 0.9 H (0.0-0.8) K/uL Eos # 0.0 (0.0-0.7) K/uL Baso # 0.1 (0.0-0.2) K/uL Neutrophils % (Manual) (50-75) % Band Neutrophils % (0-2) % Lymphocytes % (Manual) (20-40) % Monocytes % (Manual) (0-10) % Toxic Granulation Platelet Estimate (NORMAL) Large Platelets Polychromasia Hypochromasia (manual) Poikilocytosis (manual Basophilic Stippling Anisocytosis (manual) Schistocytes ESR (0-20) mm/hr Sodium 140 (132-148) mmol/L Potassium 2.8 L (3.6-5.2) mmol/L Chloride 103 (98-107) mmol/L Carbon Dioxide 34 H (22-30) mmol/L Anion Gap 5 L (10-20) BUN 29 H (7-17) mg/dL Creatinine 0.5 L (0.7-1.2) mg/dL Est GFR ( Amer) > 60 Est GFR (Non-Af Amer) > 60 Random Glucose 137 H (65-105) mg/dL Calcium 9.1 (8.6-10.4) mg/dl Phosphorus 3.0 (2.5-4.5) mg/dL Magnesium 1.5 L (1.6-2.3) mg/dL Total Bilirubin 3.7 H (0.2-1.3) mg/dL AST 83 H (14-36) U/L ALT 129 H (9-52) U/L Alkaline Phosphatase 339 H D (38-126) U/L Total Protein 5.1 L (6.3-8.3) g/dL Albumin 2.5 L D (3.5-5.0) g/dL Globulin 2.7 (2.2-3.9) gm/dL Albumin/Globulin Ratio 0.9 L (1.0-2.1) 04/10/17 Range/Units 06:43 WBC (4.8-10.8) K/uL RBC (3.80-5.20) Mil/uL Hgb (11.0-16.0) g/dL Hct (34.0-47.0) % MCV (81.0-99.0) fL MCH (27.0-31.0) pg MCHC (33.0-37.0) g/dL RDW (11.5-14.5) % Plt Count (130-400) K/uL MPV (7.2-11.7) fL Neut % (Auto) (50.0-75.0) % Lymph % (Auto) (20.0-40.0) % [place] % (Auto) (0.0-10.0) % Eos % (Auto) (0.0-4.0) % Baso % (Auto) (0.0-2.0) % Neut # (1.8-7.0) K/uL Lymph # (1.0-4.3) K/uL [place] # (0.0-0.8) K/uL Eos # (0.0-0.7) K/uL Baso # (0.0-0.2) K/uL Neutrophils % (Manual) 90 H (50-75) % Band Neutrophils % 6 H (0-2) % Lymphocytes % (Manual) 2 L (20-40) % Monocytes % (Manual) 2 (0-10) % Toxic Granulation Present Platelet Estimate Markedly decreased L (NORMAL) Large Platelets Present Polychromasia Slight Hypochromasia (manual) Slight Poikilocytosis (manual Slight Basophilic Stippling Slight Anisocytosis (manual) Moderate Schistocytes Slight ESR 30 H (0-20) mm/hr Sodium (132-148) mmol/L Potassium (3.6-5.2) mmol/L Chloride (98-107) mmol/L Carbon Dioxide (22-30) mmol/L Anion Gap (10-20) BUN (7-17) mg/dL Creatinine (0.7-1.2) mg/dL Est GFR ( Amer) Est GFR (Non-Af Amer) Random Glucose (65-105) mg/dL Calcium (8.6-10.4) mg/dl Phosphorus (2.5-4.5) mg/dL Magnesium (1.6-2.3) mg/dL Total Bilirubin (0.2-1.3) mg/dL AST (14-36) U/L ALT (9-52) U/L Alkaline Phosphatase (38-126) U/L Total Protein (6.3-8.3) g/dL Albumin (3.5-5.0) g/dL Globulin (2.2-3.9) gm/dL Albumin/Globulin Ratio (1.0-2.1) Laboratory Results - last 24 hr 04/10/17 04/10/17 04/11/17 06:43 20:11 06:20 WBC 14.4 H 20.7 H RBC 2.38 L 2.52 L Hgb 7.0 L 7.5 L Hct 21.2 L 22.6 L MCV 89.1 89.7 MCH 29.2 29.6 MCHC 32.8 L 33.0 RDW 19.5 H 19.7 H Plt Count 30 L* D 16 L* D MPV 8.4 9.8 Neut % (Auto) 94.4 H Lymph % (Auto) 1.2 L [place] % (Auto) 4.1 Eos % (Auto) 0.0 Baso % (Auto) 0.3 Neut # 19.5 H Lymph # 0.2 L [place] # 0.9 H Eos # 0.0 Baso # 0.1 Neutrophils % (Manual) 90 H Band Neutrophils % 6 H Lymphocytes % (Manual) 2 L Monocytes % (Manual) 2 Toxic Granulation Present Platelet Estimate Markedly decreased L Large Platelets Present Polychromasia Slight Hypochromasia (manual) Slight Poikilocytosis (manual Slight Basophilic Stippling Slight Anisocytosis (manual) Moderate Schistocytes Slight ESR 30 H Sodium Potassium Chloride Carbon Dioxide Anion Gap BUN Creatinine Est GFR ( Amer) Est GFR (Non-Af Amer) Random Glucose Calcium Phosphorus Magnesium Total Bilirubin AST ALT Alkaline Phosphatase Total Protein Albumin Globulin Albumin/Globulin Ratio 04/11/17 06:20 WBC RBC Hgb Hct MCV MCH MCHC RDW Plt Count MPV Neut % (Auto) Lymph % (Auto) [place] % (Auto) Eos % (Auto) Baso % (Auto) Neut # Lymph # [place] # Eos # Baso # Neutrophils % (Manual) Band Neutrophils % Lymphocytes % (Manual) Monocytes % (Manual) Toxic Granulation Platelet Estimate Large Platelets Polychromasia Hypochromasia (manual) Poikilocytosis (manual Basophilic Stippling Anisocytosis (manual) Schistocytes ESR Sodium 140 Potassium 2.8 L Chloride 103 Carbon Dioxide 34 H Anion Gap 5 L BUN 29 H Creatinine 0.5 L Est GFR ( Amer) > 60 Est GFR (Non-Af Amer) > 60 Random Glucose 137 H Calcium 9.1 Phosphorus 3.0 Magnesium 1.5 L Total Bilirubin 3.7 H AST 83 H ALT 129 H Alkaline Phosphatase 339 H D Total Protein 5.1 L Albumin 2.5 L D Globulin 2.7 Albumin/Globulin Ratio 0.9 L Fingerstick Blood Sugar Results: 169 Review of Systems - Review of Systems All systems: reviewed and no additional remarkable complaints except (as per HPI ) Critical Care Progress Note - Nutrition Nutrition: Nutrition Category Date Time Status Regular Diet [DIET] Diets 04/06/17 Lunch Active Assessment/Plan - Assessment and Plan (Free Text) Assessment: 61F with acute hypoxemic respiratory failure, respiratory acidosis from acute pulmonary edema, bilateral pneumonia, and severe sepsis Plan: Neuro * Neurology consulted (Steve) - recs appreciated * Needs visual field exam per Dr. Puckett * Gabapentin 400 mg PO BID Cardio * Tachycardic * BP stable * 03/29: Troponin + (0.2650, 0.1570) * 03/29: Heparin drip discontinued * Plavix 75 mg PO QD (d/c 04/03) * 04/06 discontinued Crestor 20 mg PO HS * Echo: grade 1 relaxation pattern and mild pulmonary hypertension * EKG: T Wave abnormality * 03/29: BNP 44823 * UE and LE US - negative for DVT Respiratory - lupus pnuemonitis * 03/31/17 Intubated * 04/05/27 Extubated * Currently on BiPAP - O2 sat waxing and waning * 03/29/17 CTA: b/l interstitial/alveolar infiltrate with superimposed multifocal eder consolidation, dilated main pulmonary artery * Solu-medrol 250 mg IV Q6 * Duonebs Q6 * Lasix 40 mg IV Q12h Renal * Balance -1400 * BUN/Cr 29/0.5 * Lasix 40 mg IV Q12h Fluids, electrolytes, nutrition * Electrolytes WNL except for those mentioned below * Potassium: 2.8 - replaced, will monitor * Bicarb: 34 * Ma.5 - replaced, will monitor Infectious disease * afebrile * WBC 10.1 * ID consulted (Cici) - recs appreciated * Sputum culture - no growth * Fluconazole 200 mg QD * Linezolid 600 mg Q12h (began 04/09) * Mepron 1500 mg PO ACL * Discontinued: * 1g vanc Q12 resumed 12/29 (vanc trough <5) * Aztreonam 1g IV Q8 * Doxy 100 IV Q12 * Flagyl 500 mg Q8 (end 04/03) * Tamiflu (end 04/04) Hematology - Anemia, thrombocytopenia * H&H: 7.5/22.6 * Plt: 16 * 04/05: PT/PTT/INR - 16.3/32/1.4; fibrinogen - 331 * 04/05: transfused 1U of platelets * Plavix 75 mg PO QD (d/c 04/03) * Heparin drip discontinued * Heme/Onc consulted (Thuy) - recs appreciated * 04/04: Bone marrow biopsy - f/u results * 03/20: Folate >20, B12 >1000 GI - transaminitis * AST/ALT: elevated - possibly med side effect * Tbili: 3.7 * Zofran PRN Endocrine * monitor blood glucose * 03/24: HbA1c 4.7 * 03/20: AM Cortisol: 27.7, TSH: 1.65, Free T4: 2.22 * Solu-medrol 250 mg IV Q6 * refusing cyclophosphamide due to side effect profile Integumentary * A&D ointment * Vaseline Rheumatology - History of Lupus and RA * Hydroxychloroquine 200 mg PO QD * Dr. Puckett consulted - recs appreciated * Daily ESR: * 04/01 55 * 04/03 55 * 04/04 18 * 04/05 20 * 04/06 23 * 04/07 32 * 04/08 34 * 04/09 30 * 04/10 30 Prophylaxis * Protonix 40 mg PO QD <Adonay Wolff - Last Filed: 04/11/17 17:01> CCU Objective - Vital Signs / Intake & Output Vital Signs (Last 4 hours): Vital Signs Pulse Resp BP Pulse Ox 04/11/17 16:43 122 H 37 H 138/84 100 04/11/17 16:10 128 H 04/11/17 16:00 118 H 34 H 100 04/11/17 15:43 122 H 36 H 133/85 99 04/11/17 14:43 121 H 36 H 127/84 100 04/11/17 14:00 120 H 32 H 100 04/11/17 13:48 120 H 04/11/17 13:43 118 H 32 H 134/91 H 100 04/11/17 13:00 119 H 32 H 100 Intake and Output (Last 8hrs): Intake & Output 04/11/17 04/11/17 04/11/17 06:59 14:59 22:59 Intake Total 150 1240 50 Output Total 1625 1350 850 Balance -1475 -110 -800 Weight 206 lb Intake: Intake, IV Amount 100 800 50 Right Medial Port Femoral 100 300 Right Proximal Port 500 50 Femoral Oral 50 440 Output: Urine 1625 1350 850 Urethral (Lewis) 1625 1350 850 - Medications Active Medications: Active Medications Generic Name Dose Route Start Last Admin Trade Name Freq PRN Reason Stop Dose Admin Albuterol/Ipratropium 3 ml 04/01/17 14:00 04/11/17 13:47 Duoneb 3 Mg/0.5 Mg (3 Ml) Ud INH 3 ml RQ6 IMAN Administration Atovaquone 1,500 mg 04/06/17 10:00 04/11/17 09:39 Mepron PO 1,500 mg DAILY IMAN Administration Emollient Ointment 5 gm 03/31/17 12:18 04/10/17 22:00 Vaseline Oint TOP 5 gm Q4 PRN Administration DRY SKIN Furosemide 40 mg 04/11/17 10:00 04/11/17 11:58 Lasix IVP 40 mg Q12 IMAN Administration Gabapentin 400 mg 03/23/17 10:00 04/11/17 09:39 Neurontin PO 400 mg BID IMAN Administration Hydroxychloroquine Sulfate 200 mg 03/28/17 10:00 04/11/17 09:39 Plaquenil PO 200 mg DAILY IMAN Administration Fluconazole 100 mls @ 100 mls/hr 03/30/17 10:00 04/11/17 10:46 Diflucan Iv 200 Mg/100 Ml Ns IVPB 100 mls/hr DAILY IMAN Administration Aztreonam 1 gm/ Sodium 100 mls @ 100 mls/hr 03/30/17 10:30 04/11/17 09:38 Chloride IVPB 100 mls/hr Q8H IMAN Administration Linezolid 600 mg in 300 mls @ 200 mls/hr 04/09/17 22:00 04/11/17 11:59 Zyvox 600mg/300ml D5w IVPB 200 mls/hr Q12H IMAN Administration Potassium Chloride 20 meq in 100 mls @ 50 mls/hr 04/11/17 08:30 04/11/17 15: 44 Potassium Chloride 20 Meq/100 Ml IVPB 04/11/17 22:29 50 mls/hr Q4H IMAN Administration Methylprednisolone 250 mg 04/10/17 00:00 04/11/17 11:57 Solu-Medrol IV 250 mg Q6H IMAN Administration Ondansetron HCl 4 mg 03/20/17 15:00 03/20/17 15:01 Zofran Inj IVP 4 mg Q6H PRN Administration Nausea/Vomiting Pantoprazole Sodium 40 mg 04/06/17 10:00 04/11/17 09:39 Protonix Ec Tab PO 40 mg DAILY IMAN Administration - Patient Studies Lab Studies: Lab Studies 04/11/17 04/11/17 04/11/17 Range/Units 13:22 06:20 06:20 WBC 20.7 H (4.8-10.8) K/uL RBC 2.52 L (3.80-5.20) Mil/uL Hgb 7.5 L (11.0-16.0) g/dL Hct 22.6 L (34.0-47.0) % MCV 89.7 (81.0-99.0) fL MCH 29.6 (27.0-31.0) pg MCHC 33.0 (33.0-37.0) g/dL RDW 19.7 H (11.5-14.5) % Plt Count 16 L* D (130-400) K/uL MPV 9.8 (7.2-11.7) fL Neut % (Auto) 94.4 H (50.0-75.0) % Lymph % (Auto) 1.2 L (20.0-40.0) % [place] % (Auto) 4.1 (0.0-10.0) % Eos % (Auto) 0.0 (0.0-4.0) % Baso % (Auto) 0.3 (0.0-2.0) % Neut # 19.5 H (1.8-7.0) K/uL Lymph # 0.2 L (1.0-4.3) K/uL [place] # 0.9 H (0.0-0.8) K/uL Eos # 0.0 (0.0-0.7) K/uL Baso # 0.1 (0.0-0.2) K/uL Neutrophils % (Manual) 93 H (50-75) % Band Neutrophils % 1 (0-2) % Lymphocytes % (Manual) 2 L (20-40) % Monocytes % (Manual) 4 (0-10) % Platelet Estimate Markedly decreased L (NORMAL) Hypochromasia (manual) Moderate Poikilocytosis (manual Slight Basophilic Stippling Slight Anisocytosis (manual) Moderate Microcytosis (manual) Slight Target Cells Slight Tear Drop Cells Slight Ovalocytes Slight Daya Cells Slight ESR 45 H (0-20) mm/hr Sodium 140 (132-148) mmol/L Potassium 2.8 L (3.6-5.2) mmol/L Chloride 103 (98-107) mmol/L Carbon Dioxide 34 H (22-30) mmol/L Anion Gap 5 L (10-20) BUN 29 H (7-17) mg/dL Creatinine 0.5 L (0.7-1.2) mg/dL Est GFR ( Amer) > 60 Est GFR (Non-Af Amer) > 60 Random Glucose 137 H (65-105) mg/dL Calcium 9.1 (8.6-10.4) mg/dl Phosphorus 3.0 (2.5-4.5) mg/dL Magnesium 1.5 L (1.6-2.3) mg/dL Total Bilirubin 3.7 H (0.2-1.3) mg/dL AST 83 H (14-36) U/L ALT 129 H (9-52) U/L Alkaline Phosphatase 339 H D (38-126) U/L Total Protein 5.1 L (6.3-8.3) g/dL Albumin 2.5 L D (3.5-5.0) g/dL Globulin 2.7 (2.2-3.9) gm/dL Albumin/Globulin Ratio 0.9 L (1.0-2.1) 04/10/17 Range/Units 20:11 WBC 14.4 H (4.8-10.8) K/uL RBC 2.38 L (3.80-5.20) Mil/uL Hgb 7.0 L (11.0-16.0) g/dL Hct 21.2 L (34.0-47.0) % MCV 89.1 (81.0-99.0) fL MCH 29.2 (27.0-31.0) pg MCHC 32.8 L (33.0-37.0) g/dL RDW 19.5 H (11.5-14.5) % Plt Count 30 L* D (130-400) K/uL MPV 8.4 (7.2-11.7) fL Neut % (Auto) (50.0-75.0) % Lymph % (Auto) (20.0-40.0) % [place] % (Auto) (0.0-10.0) % Eos % (Auto) (0.0-4.0) % Baso % (Auto) (0.0-2.0) % Neut # (1.8-7.0) K/uL Lymph # (1.0-4.3) K/uL [place] # (0.0-0.8) K/uL Eos # (0.0-0.7) K/uL Baso # (0.0-0.2) K/uL Neutrophils % (Manual) (50-75) % Band Neutrophils % (0-2) % Lymphocytes % (Manual) (20-40) % Monocytes % (Manual) (0-10) % Platelet Estimate (NORMAL) Hypochromasia (manual) Poikilocytosis (manual Basophilic Stippling Anisocytosis (manual) Microcytosis (manual) Target Cells Tear Drop Cells Ovalocytes Daya Cells ESR (0-20) mm/hr Sodium (132-148) mmol/L Potassium (3.6-5.2) mmol/L Chloride (98-107) mmol/L Carbon Dioxide (22-30) mmol/L Anion Gap (10-20) BUN (7-17) mg/dL Creatinine (0.7-1.2) mg/dL Est GFR ( Amer) Est GFR (Non-Af Amer) Random Glucose (65-105) mg/dL Calcium (8.6-10.4) mg/dl Phosphorus (2.5-4.5) mg/dL Magnesium (1.6-2.3) mg/dL Total Bilirubin (0.2-1.3) mg/dL AST (14-36) U/L ALT (9-52) U/L Alkaline Phosphatase (38-126) U/L Total Protein (6.3-8.3) g/dL Albumin (3.5-5.0) g/dL Globulin (2.2-3.9) gm/dL Albumin/Globulin Ratio (1.0-2.1) Laboratory Results - last 24 hr 04/10/17 04/11/17 04/11/17 20:11 06:20 06:20 WBC 14.4 H 20.7 H RBC 2.38 L 2.52 L Hgb 7.0 L 7.5 L Hct 21.2 L 22.6 L MCV 89.1 89.7 MCH 29.2 29.6 MCHC 32.8 L 33.0 RDW 19.5 H 19.7 H Plt Count 30 L* D 16 L* D MPV 8.4 9.8 Neut % (Auto) 94.4 H Lymph % (Auto) 1.2 L [place] % (Auto) 4.1 Eos % (Auto) 0.0 Baso % (Auto) 0.3 Neut # 19.5 H Lymph # 0.2 L [place] # 0.9 H Eos # 0.0 Baso # 0.1 Neutrophils % (Manual) 93 H Band Neutrophils % 1 Lymphocytes % (Manual) 2 L Monocytes % (Manual) 4 Platelet Estimate Markedly decreased L Hypochromasia (manual) Moderate Poikilocytosis (manual Slight Basophilic Stippling Slight Anisocytosis (manual) Moderate Microcytosis (manual) Slight Target Cells Slight Tear Drop Cells Slight Ovalocytes Slight [place]a Cells Slight ESR Sodium 140 Potassium 2.8 L Chloride 103 Carbon Dioxide 34 H Anion Gap 5 L BUN 29 H Creatinine 0.5 L Est GFR ( Amer) > 60 Est GFR (Non-Af Amer) > 60 Random Glucose 137 H Calcium 9.1 Phosphorus 3.0 Magnesium 1.5 L Total Bilirubin 3.7 H AST 83 H ALT 129 H Alkaline Phosphatase 339 H D Total Protein 5.1 L Albumin 2.5 L D Globulin 2.7 Albumin/Globulin Ratio 0.9 L 04/11/17 13:22 WBC RBC Hgb Hct MCV MCH MCHC RDW Plt Count MPV Neut % (Auto) Lymph % (Auto) [place] % (Auto) Eos % (Auto) Baso % (Auto) Neut # Lymph # [place] # Eos # Baso # Neutrophils % (Manual) Band Neutrophils % Lymphocytes % (Manual) Monocytes % (Manual) Platelet Estimate Hypochromasia (manual) Poikilocytosis (manual Basophilic Stippling Anisocytosis (manual) Microcytosis (manual) Target Cells Tear Drop Cells Ovalocytes Daya Cells ESR 45 H Sodium Potassium Chloride Carbon Dioxide Anion Gap BUN Creatinine Est GFR ( Amer) Est GFR (Non-Af Amer) Random Glucose Calcium Phosphorus Magnesium Total Bilirubin AST ALT Alkaline Phosphatase Total Protein Albumin Globulin Albumin/Globulin Ratio Critical Care Progress Note - Nutrition Nutrition: Nutrition Category Date Time Status Regular Diet [DIET] Diets 04/06/17 Lunch Active Assessment/Plan (1) Acute respiratory failure Current Visit: Yes Status: Acute Comment: worsening bilateral infiltrate consistent with pulmonary edema Continue BiPAP IV Lasix Continue high-dose steroids Continue IV antibiotics hematology follow-up for thrombocytopenia Attending/Attestation - Attestation I have personally seen and examined this patient.: Yes I have fully participated in the care of the patient.: Yes I have reviewed all pertinent clinical information: Yes Notes (Text): 04/11/17 16:53 I have seen and examined the patient. Medical records, lab studies, and imaging were reviewed by me and a management plan was formulated on multidisciplinary rounds with resident Dr. Luz. I agree with their documented assessment and plan. Patient is not improving, despite diuresis, on 100% fio2 on BIPAP. Currently it is felt that her lupus is driving her pneumonitis and subsequent hypoxia. Hem/ Onc and Rheumatology consultants have agreed to administer Cyclophosphamide as therapy for her severe lupus. The patient's family has refused the treatment. It has been explained that she may without this therapy, but also therapy would not guarantee cure. Critical Care Time 35 minutes. Multi-disciplinary rounds were performed with house staff, nursing, speech therapy, respiratory therapy, pharmacy and nutrition with integrated input from the primary team/attending and other consulting services. The documented time is cumulative and includes review of patient data/exams/labs/chart review and examination of the patient on rounds and throughout the day; time is exclusive of any procedures or teaching time. 04/11/17 16:57
[2017-04-11 08:43] LABS: ANISOCYTOSIS MODERATE; BANDS 1 % (0-2); HYPOCHROMIC MODERATE; LYMPHOCYTE 2 % (20-40); MICROCYTOSIS SLIGHT; MONOCYTE 4 % (0-10); NEUTROPHIL 93 % (50-75); PLATELET ESTIMATE MARKEDLY DECREASED (NORMAL); POIKILOCYTOSIS SLIGHT; TOTAL CELLS COUNTED 100
[2017-04-11 08:44] LABS: BURR CELLS SLIGHT; TARGET CELLS SLIGHT
[2017-04-11 08:45] LABS: OVALOCYTES SLIGHT; TEARDROP CELLS SLIGHT
[2017-04-11] MEDS: Pantoprazole 40 mg EC Tab PO SCH (09:39)
[2017-04-11] MEDS: Atovaquone 750 mg/5 ml Susp UD PO SCH (09:39)
--- NOTE | 2017-04-11 10:41 | RAD ---
HISTORY: Congestion COMPARISON: 04/10/2017 FINDINGS: LUNGS: The diffuse and extensive bilateral interstitial and coalescing alveolar infiltrates are similar. Perihilar air bronchograms noted PLEURA: The prior left pleural effusion appears less, no pneumothorax apparent. CARDIOVASCULAR: Mild cardiomegaly-similar OSSEOUS STRUCTURES: No significant abnormalities. VISUALIZED UPPER ABDOMEN: Normal. OTHER FINDINGS: None. IMPRESSION: Interval decrease left pleural effusion. Extensive and diffuse interstitial and superimposed coalescent pulmonary airspace opacities are similar -perihilar air bronchograms present. . Diffuse pulmonary interstitial infiltrates/edema. Additional interstitial infiltrates air DS are also considerations. Clinical correlation is essential
[2017-04-11] MEDS: Fluconazole IV 200mg/100 ml NS 100 ML IVPB SCH (10:46)
--- NOTE | 2017-04-11 10:58 | CP.PCM.PN ---
Subjective - Date & Time of Evaluation Date of Evaluation: 04/11/17 Time of Evaluation: 10:35 - Subjective Subjective: Patient continues to have thrombocytopenia. Latest count 16,000 this AM. Discuss patient status with Dr Pillai. Ms Awad may respond to cytoxin infusion. Objective - Vital Signs/Intake and Output Vital Signs (last 24 hours): Temp Pulse Resp BP Pulse Ox 98.1 F 118 H 31 H 140/87 100 04/11/17 08:00 04/11/17 08:00 04/11/17 08:00 04/11/17 08:43 04/11/17 08:00 Intake and Output: 04/11/17 04/11/17 06:59 18:59 Intake Total 500 0 Output Total 2024 150 Balance -1525 -150 - Medications Medications: Current Medications Albuterol/Ipratropium (Duoneb 3 Mg/0.5 Mg (3 Ml) Ud) 3 ml INH RQ6 REPLACED BY [facility] Last Admin: 04/11/17 07:39 Dose: 3 ml Atovaquone (Mepron) 1,500 mg PO DAILY REPLACED BY [facility] Last Admin: 04/11/17 09:39 Dose: 1,500 mg Emollient Ointment (Vaseline Oint) 5 gm TOP Q4 PRN PRN Reason: DRY SKIN Last Admin: 04/10/17 22:00 Dose: 5 gm Furosemide (Lasix) 40 mg IVP Q12 [facility] Gabapentin (Neurontin) 400 mg PO BID REPLACED BY [facility] Last Admin: 04/11/17 09:39 Dose: 400 mg Hydroxychloroquine Sulfate (Plaquenil) 200 mg PO DAILY [facility]PLACED BY [facility] Last Admin: 04/11/17 09:39 Dose: 200 mg Fluconazole (Diflucan Iv 200 Mg/100 Ml Ns) 100 mls @ 100 mls/hr IVPB DAILY REPLACED BY [facility] Last Admin: 04/11/17 10:46 Dose: 100 mls/hr Aztreonam 1 gm/ Sodium (Chloride) 100 mls @ 100 mls/hr IVPB Q8H REPLACED BY [facility] Last Admin: 04/11/17 09:38 Dose: 100 mls/hr Linezolid (Zyvox 600mg/300ml D5w) 600 mg in 300 mls @ 200 mls/hr IVPB Q12H REPLACED BY [facility] Last Admin: 04/10/17 22:00 Dose: 200 mls/hr Potassium Chloride (Potassium Chloride 20 Meq/100 Ml) 20 meq in 100 mls @ 50 mls/hr IVPB Q4H REPLACED BY [facility] Stop: 04/11/17 22:29 Last Admin: 04/11/17 09:32 Dose: 50 mls/hr Methylprednisolone (Solu-Medrol) 250 mg IV Q6H REPLACED BY [facility] Last Admin: 04/11/17 06:10 Dose: 250 mg Ondansetron HCl (Zofran Inj) 4 mg IVP Q6H PRN PRN Reason: Nausea/Vomiting Last Admin: 03/20/17 15:01 Dose: 4 mg Pantoprazole Sodium (Protonix Ec Tab) 40 mg PO DAILY REPLACED BY [facility] Last Admin: 04/11/17 09:39 Dose: 40 mg - Labs Labs: 04/11/17 06:20 04/11/17 06:20 PT 16.3 SECONDS (9.7-12.2) H 04/05/17 10:54 INR 1.4 04/05/17 10:54 APTT 32 SECONDS (21-34) 04/05/17 10:54 Assessment and Plan (1) Systemic lupus Status: Acute (2) Anemia Status: Acute (3) CHF (congestive heart failure) Status: Chronic (4) Coagulopathy Status: Acute (5) Leg pain, bilateral Status: Acute (6) Elevated troponin Status: Resolved
[2017-04-11] MEDS: Linezolid 600 mg in D5W 300 ml 600 MG/300 ML BAG IVPB SCH ×2 (11:59→22:00)
--- NOTE | 2017-04-11 12:26 | CP.PCM.PN ---
Subjective - Date & Time of Evaluation Date of Evaluation: 04/09/17 Time of Evaluation: 18:15 - Subjective Subjective: On bipap Objective - Vital Signs/Intake and Output Vital Signs (last 24 hours): Temp Pulse Resp BP Pulse Ox 98.1 F 118 H 31 H 139/87 100 04/11/17 08:00 04/11/17 08:00 04/11/17 08:00 04/11/17 11:58 04/11/17 08:00 Intake and Output: 04/11/17 04/11/17 06:59 18:59 Intake Total 500 0 Output Total 2024 150 Balance -1525 -150 - Medications Medications: Current Medications Albuterol/Ipratropium (Duoneb 3 Mg/0.5 Mg (3 Ml) Ud) 3 ml INH RQ6 [facility] Last Admin: 04/11/17 07:39 Dose: 3 ml Atovaquone (Mepron) 1,500 mg PO DAILY [facility] Last Admin: 04/11/17 09:39 Dose: 1,500 mg Emollient Ointment (Vaseline Oint) 5 gm TOP Q4 PRN PRN Reason: DRY SKIN Last Admin: 04/10/17 22:00 Dose: 5 gm Furosemide (Lasix) 40 mg IVP Q12 [facility] Last Admin: 04/11/17 11:58 Dose: 40 mg Gabapentin (Neurontin) 400 mg PO BID [facility] Last Admin: 04/11/17 09:39 Dose: 400 mg Hydroxychloroquine Sulfate (Plaquenil) 200 mg PO DAILY [facility] Last Admin: 04/11/17 09:39 Dose: 200 mg Fluconazole (Diflucan Iv 200 Mg/100 Ml Ns) 100 mls @ 100 mls/hr IVPB DAILY [facility] Last Admin: 04/11/17 10:46 Dose: 100 mls/hr Aztreonam 1 gm/ Sodium (Chloride) 100 mls @ 100 mls/hr IVPB Q8H [facility] Last Admin: 04/11/17 09:38 Dose: 100 mls/hr Linezolid (Zyvox 600mg/300ml D5w) 600 mg in 300 mls @ 200 mls/hr IVPB Q12H [facility] Last Admin: 04/11/17 11:59 Dose: 200 mls/hr Potassium Chloride (Potassium Chloride 20 Meq/100 Ml) 20 meq in 100 mls @ 50 mls/hr IVPB Q4H [facility] Stop: 04/11/17 22:29 Last Admin: 04/11/17 11:58 Dose: 50 mls/hr Methylprednisolone (Solu-Medrol) 250 mg IV Q6H [facility] Last Admin: 04/11/17 11:57 Dose: 250 mg Ondansetron HCl (Zofran Inj) 4 mg IVP Q6H PRN PRN Reason: Nausea/Vomiting Last Admin: 03/20/17 15:01 Dose: 4 mg Pantoprazole Sodium (Protonix Ec Tab) 40 mg PO DAILY [facility] Last Admin: 04/11/17 09:39 Dose: 40 mg - Labs Labs: 04/11/17 06:20 04/11/17 06:20 PT 16.3 SECONDS (9.7-12.2) H 04/05/17 10:54 INR 1.4 04/05/17 10:54 APTT 32 SECONDS (21-34) 04/05/17 10:54 - Head Exam Head Exam: ATRAUMATIC - Eye Exam Eye Exam: Normal appearance - ENT Exam ENT Exam: Mucous Membranes Dry - Respiratory Exam Respiratory Exam: NORMAL BREATHING PATTERN - Cardiovascular Exam Cardiovascular Exam: +S1, +S2 - GI/Abdominal Exam GI & Abdominal Exam: Normal Bowel Sounds Assessment and Plan (1) Thrombocytopenia Assessment & Plan: immune mediated steroid dosing increased f/u bone marrow biopsy results; prelim flow cytometery negative for clonal/ malignant cells Status: Acute (2) Anemia Assessment & Plan: anemia of chronic disease immune mediated component on steroids f/u bone marrow biopsy Status: Acute (3) Coagulopathy Assessment & Plan: nutritional repeat fibrinogen Status: Acute
--- NOTE | 2017-04-11 16:29 | CP.PCM.PN ---
Subjective - Date & Time of Evaluation Date of Evaluation: 04/11/17 Time of Evaluation: 07:00 - Subjective Subjective: refusing intubation and cyclophosphamide rx no new cultures Objective - Vital Signs/Intake and Output Vital Signs (last 24 hours): Temp Pulse Resp BP Pulse Ox 98.3 F 121 H 36 H 127/84 100 04/11/17 12:00 04/11/17 14:43 04/11/17 14:43 04/11/17 14:43 04/11/17 14:43 Intake and Output: 04/11/17 04/11/17 06:59 18:59 Intake Total 500 1240 Output Total 2024 1850 Balance -3875 -610 - Medications Medications: Current Medications Albuterol/Ipratropium (Duoneb 3 Mg/0.5 Mg (3 Ml) Ud) 3 ml INH RQ6 [facility] Last Admin: 04/11/17 13:47 Dose: 3 ml Atovaquone (Mepron) 1,500 mg PO DAILY [facility] Last Admin: 04/11/17 09:39 Dose: 1,500 mg Emollient Ointment (Vaseline Oint) 5 gm TOP Q4 PRN PRN Reason: DRY SKIN Last Admin: 04/10/17 22:00 Dose: 5 gm Furosemide (Lasix) 40 mg IVP Q12 [facility] Last Admin: 04/11/17 11:58 Dose: 40 mg Gabapentin (Neurontin) 400 mg PO BID [facility] Last Admin: 04/11/17 09:39 Dose: 400 mg Hydroxychloroquine Sulfate (Plaquenil) 200 mg PO DAILY [facility] Last Admin: 04/11/17 09:39 Dose: 200 mg Fluconazole (Diflucan Iv 200 Mg/100 Ml Ns) 100 mls @ 100 mls/hr IVPB DAILY [facility] Last Admin: 04/11/17 10:46 Dose: 100 mls/hr Aztreonam 1 gm/ Sodium (Chloride) 100 mls @ 100 mls/hr IVPB Q8H [facility] Last Admin: 04/11/17 09:38 Dose: 100 mls/hr Linezolid (Zyvox 600mg/300ml D5w) 600 mg in 300 mls @ 200 mls/hr IVPB Q12H [facility] Last Admin: 04/11/17 11:59 Dose: 200 mls/hr Potassium Chloride (Potassium Chloride 20 Meq/100 Ml) 20 meq in 100 mls @ 50 mls/hr IVPB Q4H [facility] Stop: 04/11/17 22:29 Last Admin: 04/11/17 15:44 Dose: 50 mls/hr Methylprednisolone (Solu-Medrol) 250 mg IV Q6H [facility] Last Admin: 04/11/17 11:57 Dose: 250 mg Ondansetron HCl (Zofran Inj) 4 mg IVP Q6H PRN PRN Reason: Nausea/Vomiting Last Admin: 03/20/17 15:01 Dose: 4 mg Pantoprazole Sodium (Protonix Ec Tab) 40 mg PO DAILY [facility] Last Admin: 04/11/17 09:39 Dose: 40 mg - Labs Labs: 04/11/17 06:20 04/11/17 06:20 PT 16.3 SECONDS (9.7-12.2) H 04/05/17 10:54 INR 1.4 04/05/17 10:54 APTT 32 SECONDS (21-34) 04/05/17 10:54 - Constitutional Appears: Chronically Ill - Head Exam Head Exam: NORMOCEPHALIC - Eye Exam Eye Exam: Normal appearance - ENT Exam ENT Exam: Mucous Membranes Dry - Neck Exam Neck Exam: absent: Lymphadenopathy - Respiratory Exam Respiratory Exam: Decreased Breath Sounds, Rales, Rhonchi - Cardiovascular Exam Cardiovascular Exam: Tachycardia, +S1, +S2 - GI/Abdominal Exam GI & Abdominal Exam: Distended, Soft - Rectal Exam Rectal Exam: Deferred - Exam Exam: NORMAL INSPECTION - Back Exam Back Exam: absent: CVA tenderness (L), CVA tenderness (R) Assessment and Plan (1) Anemia Status: Acute (2) CHF (congestive heart failure) Status: Chronic (3) Coagulopathy Status: Acute (4) Fever Status: Acute (5) Hypoglycemia Status: Acute (6) Leg pain, bilateral Status: Acute (7) Sepsis Status: Acute (8) Thrombocytopenia Status: Acute - Assessment and Plan (Free Text) Assessment: cytopenia noted on broad spectrum rx poor prognosis
[2017-04-11] MEDS: Petrolatum Oint Foilpak (5 gm) TOP PRN (17:37)
[2017-04-12] MEDS: Aztreonam 1 GM in Sodium Chloride 0.9% 100 ML IVPB SCH ×3 (02:00→17:38)
[2017-04-12] MEDS: Albuterol-Ipratrop 3 mg / 0.5 (3 ml) UD INH SCH ×4 (02:52→19:55)
[2017-04-12 06:49] LABS: BASO % 0.2 % (0.0-2.0); EOS % 0.1 % (0.0-4.0); LYMPH # 0.4 K/uL (1.0-4.3); LYMPH % 4.1 % (20.0-40.0); MEAN CELL VOLUME 88.7 fL (81.0-99.0); MEAN CORPUSCULAR HEMOGLOBIN 29.7 pg (27.0-31.0); MEAN CORPUSCULAR HGB CONC 33.4 g/dL (33.0-37.0); MEAN PLATELET VOLUME 10.5 fL (7.2-11.7); MONO # 0.3 K/uL (0.0-0.8); NEUT % 91.6 % (50.0-75.0); NRBC % 0.1 % (0.0-2.0); RBC 1.96 Mil/uL (3.80-5.20); RED CELL DISTRIBUTION WIDTH 19.7 % (11.5-14.5); WHITE BLOOD COUNT 8.7 K/uL (4.8-10.8)
[2017-04-12 07:04] LABS: HEMOGLOBIN 5.8 g/dL (11.0-16.0); PLATELET COUNT 7 K/uL (130-400)
[2017-04-12 07:08] LABS: ALB/GLOB RATIO 0.9 (1.0-2.1); ALT/SGPT 106 U/L (9-52); AST/SGOT 65 U/L (14-36); BLOOD UREA NITROGEN 29 mg/dL (7-17); CALCIUM 8.8 mg/dl (8.6-10.4); GFR AFRICAN-AMERICAN > 60; GFR NON-AFRICAN AMERICAN > 60; MAGNESIUM 1.5 mg/dL (1.6-2.3)
[2017-04-12 09:02] LABS: ANISOCYTOSIS MODERATE; BANDS 1 % (0-2); HYPOCHROMIC MODERATE; LYMPHOCYTE 5 % (20-40); MONOCYTE 3 % (0-10); NEUTROPHIL 91 % (50-75); PLATELET ESTIMATE MARKEDLY DECREASED (NORMAL); POIKILOCYTOSIS MODERATE; TOTAL CELLS COUNTED 100
[2017-04-12 09:03] LABS: MICROCYTOSIS SLIGHT; OVALOCYTES SLIGHT; TARGET CELLS SLIGHT
--- NOTE | 2017-04-12 09:41 | CP.PCM.PN ---
Subjective - Date & Time of Evaluation Date of Evaluation: 04/11/17 Time of Evaluation: 12:00 - Subjective Subjective: On bipap spoke to patients son about cyclophosphamide and treatment for increased immunosuppression; they declined this treatment. We also discussed Rituximab treatment and they indicated they would like to speak to rheumatology to discuss further. I will plan to speak to PMD and rheumatology to discuss further options Case discussed with ICU attending Objective - Vital Signs/Intake and Output Vital Signs (last 24 hours): Temp Pulse Resp BP Pulse Ox 98.1 F 103 H 31 H 121/79 100 04/12/17 08:00 04/12/17 08:05 04/12/17 08:00 04/12/17 08:00 04/12/17 05:43 Intake and Output: 04/12/17 04/12/17 06:59 18:59 Intake Total 820 100 Output Total 1820 30 Balance -1000 70 - Medications Medications: Current Medications Albuterol/Ipratropium (Duoneb 3 Mg/0.5 Mg (3 Ml) Ud) 3 ml INH RQ6 [facility] Last Admin: 04/12/17 08:04 Dose: 3 ml Atovaquone (Mepron) 1,500 mg PO DAILY [facility] Last Admin: 04/11/17 09:39 Dose: 1,500 mg Emollient Ointment (Vaseline Oint) 5 gm TOP Q4 PRN PRN Reason: DRY SKIN Last Admin: 04/11/17 17:37 Dose: 5 gm Furosemide (Lasix) 40 mg IVP Q12 [facility] Last Admin: 04/11/17 21:59 Dose: 40 mg Gabapentin (Neurontin) 400 mg PO BID [facility] Last Admin: 04/11/17 17:37 Dose: 400 mg Hydroxychloroquine Sulfate (Plaquenil) 200 mg PO DAILY [facility] Last Admin: 04/11/17 09:39 Dose: 200 mg Fluconazole (Diflucan Iv 200 Mg/100 Ml Ns) 100 mls @ 100 mls/hr IVPB DAILY [facility] Last Admin: 04/11/17 10:46 Dose: 100 mls/hr Aztreonam 1 gm/ Sodium (Chloride) 100 mls @ 100 mls/hr IVPB Q8H [facility] Last Admin: 04/12/17 02:00 Dose: 100 mls/hr Linezolid (Zyvox 600mg/300ml D5w) 600 mg in 300 mls @ 200 mls/hr IVPB Q12H [facility] Last Admin: 04/11/17 22:00 Dose: 200 mls/hr Potassium Chloride (Potassium Chloride 20 Meq/100 Ml) 20 meq in 100 mls @ 25 mls/hr IVPB Q4 [facility] Stop: 04/12/17 23:59 Last Admin: 04/12/17 07:37 Dose: 25 mls/hr Methylprednisolone (Solu-Medrol) 250 mg IV Q6H [facility] Last Admin: 04/12/17 06:54 Dose: 250 mg Ondansetron HCl (Zofran Inj) 4 mg IVP Q6H PRN PRN Reason: Nausea/Vomiting Last Admin: 03/20/17 15:01 Dose: 4 mg Pantoprazole Sodium (Protonix Ec Tab) 40 mg PO DAILY [facility] Last Admin: 04/11/17 09:39 Dose: 40 mg - Labs Labs: 04/12/17 06:46 04/12/17 06:46 PT 16.3 SECONDS (9.7-12.2) H 04/05/17 10:54 INR 1.4 04/05/17 10:54 APTT 32 SECONDS (21-34) 04/05/17 10:54 - Head Exam Head Exam: ATRAUMATIC - Eye Exam Eye Exam: Normal appearance - ENT Exam ENT Exam: Mucous Membranes Dry - Respiratory Exam Respiratory Exam: Respiratory Distress - Cardiovascular Exam Cardiovascular Exam: +S1, +S2 - GI/Abdominal Exam GI & Abdominal Exam: Normal Bowel Sounds - Extremities Exam Extremities Exam: Pedal Edema Assessment and Plan (1) Thrombocytopenia Assessment & Plan: immune mediated steroid dosing increased f/u bone marrow biopsy results; prelim flow cytometery negative for clonal/ malignant cells Status: Acute (2) Anemia Assessment & Plan: anemia of chronic disease immune mediated component on steroids f/u bone marrow biopsy Status: Acute (3) Coagulopathy Assessment & Plan: nutritional repeat fibrinogen Status: Acute
[2017-04-12 10:28] LABS: ABG ALLEN TEST POS; ARTERIAL BLOOD GAS HCO3 36.8 mmol/L (21-28); ARTERIAL BLOOD GAS O2 SAT 100.6 % (95-98); ARTERIAL BLOOD GAS PCO2 59 mm/Hg (35-45); ARTERIAL BLOOD GAS PH 7.46 (7.35-7.45); ARTERIAL BLOOD GAS PO2 162 mm/Hg (80-100); ARTERIAL BLOOD GAS TCO2 43.8 mmol/L (22-28)
[2017-04-12] MEDS: Atovaquone 750 mg/5 ml Susp UD PO SCH (10:35)
[2017-04-12] MEDS: Fluconazole IV 200mg/100 ml NS 100 ML IVPB SCH (10:37)
[2017-04-12] MEDS: Pantoprazole 40 mg EC Tab PO SCH (10:38)
[2017-04-12] MEDS: Linezolid 600 mg in D5W 300 ml 600 MG/300 ML BAG IVPB SCH (10:39)
--- NOTE | 2017-04-12 11:43 | CP.CCUPN ---
<Thais Luz - Last Filed: 04/12/17 11:36> CCU Subjective - Physician Review Subjective (Free Text): 04/12/17 11:36 Patient seen and examined at bedside. Patient resting in bed on BiPAP. Pt has no new complaints at this time. No acute events over night. Patient denies chest pain, palpitations, abdominal pain, n/v/d. CCU Objective - Vital Signs / Intake & Output Vital Signs (Last 4 hours): Vital Signs Temp Pulse Resp BP 04/12/17 10:22 98.1 F 107 H 28 H 128/76 04/12/17 10:07 98.3 F 108 H 29 H 133/82 04/12/17 09:52 98.2 F 109 H 28 H 121/79 04/12/17 08:05 103 H 04/12/17 08:00 98.1 F 105 H 31 H 121/79 Intake and Output (Last 8hrs): Intake & Output 04/11/17 04/12/17 04/12/17 22:59 06:59 14:59 Intake Total 840 300 100 Output Total 1300 1570 30 Balance -460 -1270 70 Weight 195 lb 6.4 oz Intake: Intake, IV Amount 600 100 100 Right Proximal Port 600 100 100 Femoral Oral 240 200 Blood Product 0 Apheresis Rbc Cp2d As3 Lr 0 2nd Unit [id number] Output: Urine 1300 1570 30 Urethral (Lewis) 1300 1570 30 Other: # Bowel Movements 0 0 0 - Physical Exam Head: Positive for: Atraumatic, Normocephalic Pupils: Positive for: PERRL Extroacular Muscles: Positive for: EOMI Conjunctiva: Positive for: Normal Mouth: Positive for: Moist Mucous Membranes Neck: Negative for: JVD Respiratory/Chest: Positive for: Clear to Auscultation, Accessory Muscle Use, Tachypneic, Other (on BiPAP). Negative for: Respiratory Distress, Wheezes, Rales, Rhonchi Cardiovascular: Positive for: Normal S1, S2, Tachycardic. Negative for: Bradycardic Abdomen: Positive for: Normal Bowel Sounds. Negative for: Tenderness, Distention, Peritoneal Signs Upper Extremity: Positive for: Edema Lower Extremity: Positive for: Edema. Negative for: Tenderness Neurological: Positive for: GCS=15, Speech Normal Skin: Positive for: Warm, Dry. Negative for: Rashes Psychiatric: Positive for: Alert, Oriented x 3, Normal Insight, Normal Concentration - Medications Active Medications: Active Medications Generic Name Dose Route Start Last Admin Trade Name Arielq PRN Reason Stop Dose Admin Albuterol/Ipratropium 3 ml 04/01/17 14:00 04/12/17 08:04 Duoneb 3 Mg/0.5 Mg (3 Ml) Ud INH 3 ml RQ6 IMAN Administration Atovaquone 1,500 mg 04/06/17 10:00 04/12/17 10:35 Mepron PO Not Given DAILY IMAN Emollient Ointment 5 gm 03/31/17 12:18 04/11/17 17:37 Vaseline Oint TOP 5 gm Q4 PRN Administration DRY SKIN Furosemide 40 mg 04/11/17 10:00 04/11/17 21:59 Lasix IVP 40 mg Q12 IMAN Administration Gabapentin 400 mg 03/23/17 10:00 04/12/17 10:36 Neurontin PO Not Given BID IMAN Hydroxychloroquine Sulfate 200 mg 03/28/17 10:00 04/12/17 10:36 Plaquenil PO Not Given DAILY IMAN Fluconazole 100 mls @ 100 mls/hr 03/30/17 10:00 04/12/17 10:37 Diflucan Iv 200 Mg/100 Ml Ns IVPB 100 mls/hr DAILY IMAN Administration Aztreonam 1 gm/ Sodium 100 mls @ 100 mls/hr 03/30/17 10:30 04/12/17 10:36 Chloride IVPB 100 mls/hr Q8H IMAN Administration Linezolid 600 mg in 300 mls @ 200 mls/hr 04/09/17 22:00 04/12/17 10:39 Zyvox 600mg/300ml D5w IVPB 200 mls/hr Q12H IMAN Administration Potassium Chloride 20 meq in 100 mls @ 25 mls/hr 04/12/17 08:00 04/12/17 07: 37 Potassium Chloride 20 Meq/100 Ml IVPB 04/12/17 23:59 25 mls/hr Q4 IMAN Administration Methylprednisolone 250 mg 04/10/17 00:00 04/12/17 06:54 Solu-Medrol IV 250 mg Q6H IMAN Administration Ondansetron HCl 4 mg 03/20/17 15:00 03/20/17 15:01 Zofran Inj IVP 4 mg Q6H PRN Administration Nausea/Vomiting Pantoprazole Sodium 40 mg 04/06/17 10:00 04/12/17 10:38 Protonix Ec Tab PO Not Given DAILY IMAN - Patient Studies Lab Studies: Lab Studies 04/12/17 04/12/17 04/12/17 Range/Units 10:21 08:04 06:46 WBC (4.8-10.8) K/uL RBC (3.80-5.20) Mil/uL Hgb (11.0-16.0) g/dL Hct (34.0-47.0) % MCV (81.0-99.0) fL MCH (27.0-31.0) pg MCHC (33.0-37.0) g/dL RDW (11.5-14.5) % Plt Count (130-400) K/uL MPV (7.2-11.7) fL Neut % (Auto) (50.0-75.0) % Lymph % (Auto) (20.0-40.0) % [place] % (Auto) (0.0-10.0) % Eos % (Auto) (0.0-4.0) % Baso % (Auto) (0.0-2.0) % Neut # (1.8-7.0) K/uL Lymph # (1.0-4.3) K/uL [place] # (0.0-0.8) K/uL Eos # (0.0-0.7) K/uL Baso # (0.0-0.2) K/uL Neutrophils % (Manual) (50-75) % Band Neutrophils % (0-2) % Lymphocytes % (Manual) (20-40) % Monocytes % (Manual) (0-10) % Platelet Estimate (NORMAL) Hypochromasia (manual) Poikilocytosis (manual Anisocytosis (manual) Microcytosis (manual) Macrocytosis (manual) Target Cells Ovalocytes ESR (0-20) mm/hr Puncture Site Lr pCO2 59 H (35-45) mm/Hg pO2 162 H (80-100) mm/Hg HCO3 36.8 H (21-28) mmol/L ABG pH 7.46 H (7.35-7.45) ABG Total CO2 43.8 H (22-28) mmol/L ABG O2 Saturation 100.6 H (95-98) % ABG Base Excess 15.2 H (-2.0-3.0) mmol/L Daljit Test Pos ABG Potassium 2.9 L (3.6-5.2) mmol/L A-a O2 Difference 477.0 mm/Hg Respiratory Index 2.9 Glucose 117 H (65-105) mg/dl Lactate 1.5 (0.7-2.1) mmol/L Vent Mode Bipap FiO2 100.0 % Inspiratory BiPAP 18 Expiratory BiPAP 8 Sodium 150.0 H 143 (132-148) mmol/L Potassium 2.8 L (3.6-5.2) mmol/L Chloride 112.0 H 98 (98-107) mmol/L Carbon Dioxide 42 H* D (22-30) mmol/L Anion Gap 6 L (10-20) BUN 29 H (7-17) mg/dL Creatinine 0.5 L (0.7-1.2) mg/dL Est GFR ( Amer) > 60 Est GFR (Non-Af Amer) > 60 Random Glucose 124 H (65-105) mg/dL Calcium 8.8 (8.6-10.4) mg/dl Phosphorus 2.8 (2.5-4.5) mg/dL Magnesium 1.5 L (1.6-2.3) mg/dL Total Bilirubin 2.4 H (0.2-1.3) mg/dL AST 65 H D (14-36) U/L ALT 106 H (9-52) U/L Alkaline Phosphatase 277 H (38-126) U/L Total Protein 4.2 L (6.3-8.3) g/dL Albumin 2.0 L (3.5-5.0) g/dL Globulin 2.2 (2.2-3.9) gm/dL Albumin/Globulin Ratio 0.9 L (1.0-2.1) Arterial Blood Potassium 2.9 L (3.6-5.2) mmol/L Blood Type O POSITIVE Antibody Screen Negative 04/12/17 04/11/17 Range/Units 06:46 13:22 WBC 8.7 D (4.8-10.8) K/uL RBC 1.96 L (3.80-5.20) Mil/uL Hgb 5.8 L* (11.0-16.0) g/dL Hct 17.4 L (34.0-47.0) % MCV 88.7 (81.0-99.0) fL MCH 29.7 (27.0-31.0) pg MCHC 33.4 (33.0-37.0) g/dL RDW 19.7 H (11.5-14.5) % Plt Count 7 L* D (130-400) K/uL MPV 10.5 (7.2-11.7) fL Neut % (Auto) 91.6 H (50.0-75.0) % Lymph % (Auto) 4.1 L (20.0-40.0) % [place] % (Auto) 4.0 (0.0-10.0) % Eos % (Auto) 0.1 (0.0-4.0) % Baso % (Auto) 0.2 (0.0-2.0) % Neut # 8.0 H (1.8-7.0) K/uL Lymph # 0.4 L (1.0-4.3) K/uL [place] # 0.3 (0.0-0.8) K/uL Eos # 0.0 (0.0-0.7) K/uL Baso # 0.0 (0.0-0.2) K/uL Neutrophils % (Manual) 91 H (50-75) % Band Neutrophils % 1 (0-2) % Lymphocytes % (Manual) 5 L (20-40) % Monocytes % (Manual) 3 (0-10) % Platelet Estimate Markedly decreased L (NORMAL) Hypochromasia (manual) Moderate Poikilocytosis (manual Moderate Anisocytosis (manual) Moderate Microcytosis (manual) Slight Macrocytosis (manual) Slight Target Cells Slight Ovalocytes Slight ESR 45 H (0-20) mm/hr Puncture Site pCO2 (35-45) mm/Hg pO2 (80-100) mm/Hg HCO3 (21-28) mmol/L ABG pH (7.35-7.45) ABG Total CO2 (22-28) mmol/L ABG O2 Saturation (95-98) % ABG Base Excess (-2.0-3.0) mmol/L Daljit Test ABG Potassium (3.6-5.2) mmol/L A-a O2 Difference mm/Hg Respiratory Index Glucose (65-105) mg/dl Lactate (0.7-2.1) mmol/L Vent Mode FiO2 % Inspiratory BiPAP Expiratory BiPAP Sodium (132-148) mmol/L Potassium (3.6-5.2) mmol/L Chloride (98-107) mmol/L Carbon Dioxide (22-30) mmol/L Anion Gap (10-20) BUN (7-17) mg/dL Creatinine (0.7-1.2) mg/dL Est GFR ( Amer) Est GFR (Non-Af Amer) Random Glucose (65-105) mg/dL Calcium (8.6-10.4) mg/dl Phosphorus (2.5-4.5) mg/dL Magnesium (1.6-2.3) mg/dL Total Bilirubin (0.2-1.3) mg/dL AST (14-36) U/L ALT (9-52) U/L Alkaline Phosphatase (38-126) U/L Total Protein (6.3-8.3) g/dL Albumin (3.5-5.0) g/dL Globulin (2.2-3.9) gm/dL Albumin/Globulin Ratio (1.0-2.1) Arterial Blood Potassium (3.6-5.2) mmol/L Blood Type Antibody Screen Laboratory Results - last 24 hr 04/11/17 04/12/17 04/12/17 13:22 06:46 06:46 WBC 8.7 D RBC 1.96 L Hgb 5.8 L* Hct 17.4 L MCV 88.7 MCH 29.7 MCHC 33.4 RDW 19.7 H Plt Count 7 L* D MPV 10.5 Neut % (Auto) 91.6 H Lymph % (Auto) 4.1 L [place] % (Auto) 4.0 Eos % (Auto) 0.1 Baso % (Auto) 0.2 Neut # 8.0 H Lymph # 0.4 L [place] # 0.3 Eos # 0.0 Baso # 0.0 Neutrophils % (Manual) 91 H Band Neutrophils % 1 Lymphocytes % (Manual) 5 L Monocytes % (Manual) 3 Platelet Estimate Markedly decreased L Hypochromasia (manual) Moderate Poikilocytosis (manual Moderate Anisocytosis (manual) Moderate Microcytosis (manual) Slight Macrocytosis (manual) Slight Target Cells Slight Ovalocytes Slight ESR 45 H Puncture Site pCO2 pO2 HCO3 ABG pH ABG Total CO2 ABG O2 Saturation ABG Base Excess Daljit Test ABG Potassium A-a O2 Difference Respiratory Index Glucose Lactate Vent Mode FiO2 Inspiratory BiPAP Expiratory BiPAP Sodium 143 Potassium 2.8 L Chloride 98 Carbon Dioxide 42 H* D Anion Gap 6 L BUN 29 H Creatinine 0.5 L Est GFR ( Amer) > 60 Est GFR (Non-Af Amer) > 60 Random Glucose 124 H Calcium 8.8 Phosphorus 2.8 Magnesium 1.5 L Total Bilirubin 2.4 H AST 65 H D ALT 106 H Alkaline Phosphatase 277 H Total Protein 4.2 L Albumin 2.0 L Globulin 2.2 Albumin/Globulin Ratio 0.9 L Arterial Blood Potassium Blood Type Antibody Screen 04/12/17 04/12/17 08:04 10:21 WBC RBC Hgb Hct MCV MCH MCHC RDW Plt Count MPV Neut % (Auto) Lymph % (Auto) [place] % (Auto) Eos % (Auto) Baso % (Auto) Neut # Lymph # [place] # Eos # Baso # Neutrophils % (Manual) Band Neutrophils % Lymphocytes % (Manual) Monocytes % (Manual) Platelet Estimate Hypochromasia (manual) Poikilocytosis (manual Anisocytosis (manual) Microcytosis (manual) Macrocytosis (manual) Target Cells Ovalocytes ESR Puncture Site Lr pCO2 59 H pO2 162 H HCO3 36.8 H ABG pH 7.46 H ABG Total CO2 43.8 H ABG O2 Saturation 100.6 H ABG Base Excess 15.2 H Daljit Test Pos ABG Potassium 2.9 L A-a O2 Difference 477.0 Respiratory Index 2.9 Glucose 117 H Lactate 1.5 Vent Mode Bipap FiO2 100.0 Inspiratory BiPAP 18 Expiratory BiPAP 8 Sodium 150.0 H Potassium Chloride 112.0 H Carbon Dioxide Anion Gap BUN Creatinine Est GFR ( Amer) Est GFR (Non-Af Amer) Random Glucose Calcium Phosphorus Magnesium Total Bilirubin AST ALT Alkaline Phosphatase Total Protein Albumin Globulin Albumin/Globulin Ratio Arterial Blood Potassium 2.9 L Blood Type O POSITIVE Antibody Screen Negative Fingerstick Blood Sugar Results: 169 Review of Systems - Review of Systems All systems: reviewed and no additional remarkable complaints except (as per HPI ) Critical Care Progress Note - Nutrition Nutrition: Nutrition Category Date Time Status Regular Diet [DIET] Diets 04/06/17 Lunch Active Assessment/Plan - Assessment and Plan (Free Text) Assessment: 61F with acute hypoxemic respiratory failure, respiratory acidosis from acute pulmonary edema, bilateral pneumonia, and severe sepsis Plan: Neuro * Neurology consulted (Steve) - recs appreciated * Needs visual field exam per Dr. Puckett * Gabapentin 400 mg PO BID Cardio * Tachycardic * BP stable * 03/29: Troponin + (0.2650, 0.1570) * 03/29: Heparin drip discontinued * Plavix 75 mg PO QD (d/c 04/03) * 04/06 discontinued Crestor 20 mg PO HS * Echo: grade 1 relaxation pattern and mild pulmonary hypertension * EKG: T Wave abnormality * 03/29: BNP 88542 * UE and LE US - negative for DVT Respiratory - lupus pnuemonitis * 03/31/17 Intubated * 04/05/27 Extubated * Currently on BiPAP - saturating well * ABG (04/12/17): 7.46/59/162/36.8 * 03/29/17 CTA: b/l interstitial/alveolar infiltrate with superimposed multifocal eder consolidation, dilated main pulmonary artery * Solu-medrol 250 mg IV Q6 * Duonebs Q6 * Hold Lasix 40 mg IV Q12h Renal * Balance -1840 * BUN/Cr 29/0.5 * Hold Lasix 40 mg IV Q12h Fluids, electrolytes, nutrition * Electrolytes WNL except for those mentioned below * Potassium: 2.8 - replaced, will monitor * Bicarb: 42 * Ma.5 - replaced, will monitor Infectious disease * afebrile * WBC 8.7 * ID consulted (Cici) - recs appreciated * Sputum culture - no growth * Fluconazole 200 mg QD * Linezolid 600 mg Q12h (began 04/09) * Mepron 1500 mg PO ACL * Aztreonam 1g IV Q8 * Discontinued: * 1g vanc Q12 resumed 04/07 (vanc trough <5) * Doxy 100 IV Q12 * Flagyl 500 mg Q8 (end 04/03) * Tamiflu (end 04/04) Hematology - Anemia, thrombocytopenia * H&H: 5.8/17.4 - transfused 2U pRBCs * Plt: 7 - transfused 2U plts * 04/05: PT/PTT/INR - 16.3/32/1.4; fibrinogen - 331 * 04/05: transfused 1U of platelets * Plavix 75 mg PO QD (d/c 04/03) * Heparin drip discontinued * Heme/Onc consulted (Thuy) - recs appreciated * 04/04: Bone marrow biopsy - f/u results * 03/20: Folate >20, B12 >1000 GI - transaminitis * AST/ALT: elevated - possibly med side effect * Tbili: 2.4 * Zofran PRN Endocrine * monitor blood glucose * 03/24: HbA1c 4.7 * 03/20: AM Cortisol: 27.7, TSH: 1.65, Free T4: 2.22 * Solu-medrol 250 mg IV Q6 Integumentary * A&D ointment * Vaseline Rheumatology - History of Lupus and RA * Hydroxychloroquine 200 mg PO QD * IV Ig 30g QD x5 days per Dr. Daley * Cytoxan pending patient/family approval - refused prior due to side effect profile * Dr. Puckett consulted - recs appreciated * Daily ESR: * 04/01 55 * 04/03 55 * 04/04 18 * 04/05 20 * 04/06 23 * 04/07 32 * 04/08 34 * 04/09 30 * 04/10 30 Prophylaxis * Protonix 40 mg PO QD <Chucky Astorga S - Last Filed: 04/12/17 16:12> CCU Objective - Vital Signs / Intake & Output Vital Signs (Last 4 hours): Vital Signs Temp Pulse Resp BP Pulse Ox 04/12/17 16:00 98 F 91 H 25 H 102/64 96 04/12/17 15:40 98.1 F 87 24 112/64 04/12/17 15:00 89 24 127/76 99 04/12/17 14:55 98.2 F 98 H 22 120/75 04/12/17 14:00 103 H 29 H 120/75 99 04/12/17 13:55 98.1 F 102 H 24 122/79 04/12/17 13:25 98 F 103 H 28 H 135/83 04/12/17 13:10 98.1 F 113 H 29 H 126/83 04/12/17 13:00 104 H 28 H 126/83 98 04/12/17 12:55 98.7 F 104 H 28 H 135/83 04/12/17 12:30 98.1 F 104 H 26 H 120/79 Intake and Output (Last 8hrs): Intake & Output 04/12/17 04/12/17 04/12/17 06:59 14:59 22:59 Intake Total 300 1095 603 Output Total 1570 30 Balance -1270 1065 603 Weight 195 lb 6.4 oz Intake: Intake, IV Amount 100 720 210 Right Medial Port Femoral 120 60 Right Proximal Port 100 600 150 Femoral Oral 200 0 Blood Product 325 293 Apheresis Plts Acda Lr 0 Irr Unit [id number] Apheresis Plts Acda Lr 0 293 Irr 2nd Unit [id number] Apheresis Rbc Cp2d As3 Lr 325 2nd Unit [id number] Other 50 100 Apheresis Plts Acda Lr 100 Irr 2nd Unit [id number] Apheresis Rbc Cp2d As3 Lr 50 2nd Unit [id number] Output: Urine 1570 30 Urethral (Lewis) 1570 30 Other: # Bowel Movements 0 0 - Medications Active Medications: Active Medications Generic Name Dose Route Start Last Admin Trade Name Freq PRN Reason Stop Dose Admin Acetaminophen 650 mg 04/12/17 13:30 04/12/17 14:11 Tylenol 325mg Tab PO 650 mg DAILY@1330 IMAN Administration Albuterol/Ipratropium 3 ml 04/01/17 14:00 04/12/17 13:32 Duoneb 3 Mg/0.5 Mg (3 Ml) Ud INH Not Given RQ6 IMAN Atovaquone 1,500 mg 04/06/17 10:00 04/12/17 10:35 Mepron PO Not Given DAILY IMAN Diphenhydramine HCl 50 mg 04/12/17 13:30 04/12/17 14:11 Benadryl IVP 50 mg DAILY@1330 IMAN Administration Emollient Ointment 5 gm 03/31/17 12:18 04/11/17 17:37 Vaseline Oint TOP 5 gm Q4 PRN Administration DRY SKIN Furosemide 40 mg 04/11/17 10:00 04/11/17 21:59 Lasix IVP 40 mg Q12 IMAN Administration Gabapentin 400 mg 03/23/17 10:00 04/12/17 10:36 Neurontin PO Not Given BID IMAN Hydrocortisone Sodium Succinate 100 mg 04/12/17 13:30 04/12/17 14:11 Solu-Cortef IV 100 mg DAILY@1330 IMAN Administration Hydroxychloroquine Sulfate 200 mg 03/28/17 10:00 04/12/17 10:36 Plaquenil PO Not Given DAILY IMNA Fluconazole 100 mls @ 100 mls/hr 03/30/17 10:00 04/12/17 10:37 Diflucan Iv 200 Mg/100 Ml Ns IVPB 100 mls/hr DAILY IMAN Administration Aztreonam 1 gm/ Sodium 100 mls @ 100 mls/hr 03/30/17 10:30 04/12/17 10:36 Chloride IVPB 100 mls/hr Q8H IMAN Administration Linezolid 600 mg in 300 mls @ 200 mls/hr 04/09/17 22:00 04/12/17 10:39 Zyvox 600mg/300ml D5w IVPB 200 mls/hr Q12H IMAN Administration Potassium Chloride 20 meq in 100 mls @ 25 mls/hr 04/12/17 08:00 04/12/17 16: 01 Potassium Chloride 20 Meq/100 Ml IVPB 04/12/17 23:59 25 mls/hr Q4 IMAN Administration Immune Globulin 600 mls @ 0 mls/hr 04/12/17 14:00 04/12/17 14:22 Octagam 5% IV 04/16/17 14:01 60 mls/hr DAILY@1400 IMAN Administration UD Methylprednisolone 250 mg 04/10/17 00:00 04/12/17 13:00 Solu-Medrol IV 250 mg Q6H IMAN Administration Ondansetron HCl 4 mg 03/20/17 15:00 03/20/17 15:01 Zofran Inj IVP 4 mg Q6H PRN Administration Nausea/Vomiting Pantoprazole Sodium 40 mg 04/06/17 10:00 04/12/17 10:38 Protonix Ec Tab PO Not Given DAILY IMAN - Patient Studies Lab Studies: Lab Studies 04/12/17 04/12/17 04/12/17 Range/Units 10:21 08:04 06:46 WBC (4.8-10.8) K/uL RBC (3.80-5.20) Mil/uL Hgb (11.0-16.0) g/dL Hct (34.0-47.0) % MCV (81.0-99.0) fL MCH (27.0-31.0) pg MCHC (33.0-37.0) g/dL RDW (11.5-14.5) % Plt Count (130-400) K/uL MPV (7.2-11.7) fL Neut % (Auto) (50.0-75.0) % Lymph % (Auto) (20.0-40.0) % [place] % (Auto) (0.0-10.0) % Eos % (Auto) (0.0-4.0) % Baso % (Auto) (0.0-2.0) % Neut # (1.8-7.0) K/uL Lymph # (1.0-4.3) K/uL [place] # (0.0-0.8) K/uL Eos # (0.0-0.7) K/uL Baso # (0.0-0.2) K/uL Neutrophils % (Manual) (50-75) % Band Neutrophils % (0-2) % Lymphocytes % (Manual) (20-40) % Monocytes % (Manual) (0-10) % Platelet Estimate (NORMAL) Hypochromasia (manual) Poikilocytosis (manual Anisocytosis (manual) Microcytosis (manual) Macrocytosis (manual) Target Cells Ovalocytes Puncture Site Lr pCO2 59 H (35-45) mm/Hg pO2 162 H (80-100) mm/Hg HCO3 36.8 H (21-28) mmol/L ABG pH 7.46 H (7.35-7.45) ABG Total CO2 43.8 H (22-28) mmol/L ABG O2 Saturation 100.6 H (95-98) % ABG Base Excess 15.2 H (-2.0-3.0) mmol/L Daljit Test Pos ABG Potassium 2.9 L (3.6-5.2) mmol/L A-a O2 Difference 477.0 mm/Hg Respiratory Index 2.9 Glucose 117 H (65-105) mg/dl Lactate 1.5 (0.7-2.1) mmol/L Vent Mode Bipap FiO2 100.0 % Inspiratory BiPAP 18 Expiratory BiPAP 8 Sodium 150.0 H 143 (132-148) mmol/L Potassium 2.8 L (3.6-5.2) mmol/L Chloride 112.0 H 98 (98-107) mmol/L Carbon Dioxide 42 H* D (22-30) mmol/L Anion Gap 6 L (10-20) BUN 29 H (7-17) mg/dL Creatinine 0.5 L (0.7-1.2) mg/dL Est GFR ( Amer) > 60 Est GFR (Non-Af Amer) > 60 Random Glucose 124 H (65-105) mg/dL Calcium 8.8 (8.6-10.4) mg/dl Phosphorus 2.8 (2.5-4.5) mg/dL Magnesium 1.5 L (1.6-2.3) mg/dL Total Bilirubin 2.4 H (0.2-1.3) mg/dL AST 65 H D (14-36) U/L ALT 106 H (9-52) U/L Alkaline Phosphatase 277 H (38-126) U/L Total Protein 4.2 L (6.3-8.3) g/dL Albumin 2.0 L (3.5-5.0) g/dL Globulin 2.2 (2.2-3.9) gm/dL Albumin/Globulin Ratio 0.9 L (1.0-2.1) Arterial Blood Potassium 2.9 L (3.6-5.2) mmol/L Blood Type O POSITIVE Antibody Screen Negative 04/12/17 Range/Units 06:46 WBC 8.7 D (4.8-10.8) K/uL RBC 1.96 L (3.80-5.20) Mil/uL Hgb 5.8 L* (11.0-16.0) g/dL Hct 17.4 L (34.0-47.0) % MCV 88.7 (81.0-99.0) fL MCH 29.7 (27.0-31.0) pg MCHC 33.4 (33.0-37.0) g/dL RDW 19.7 H (11.5-14.5) % Plt Count 7 L* D (130-400) K/uL MPV 10.5 (7.2-11.7) fL Neut % (Auto) 91.6 H (50.0-75.0) % Lymph % (Auto) 4.1 L (20.0-40.0) % [place] % (Auto) 4.0 (0.0-10.0) % Eos % (Auto) 0.1 (0.0-4.0) % Baso % (Auto) 0.2 (0.0-2.0) % Neut # 8.0 H (1.8-7.0) K/uL Lymph # 0.4 L (1.0-4.3) K/uL [place] # 0.3 (0.0-0.8) K/uL Eos # 0.0 (0.0-0.7) K/uL Baso # 0.0 (0.0-0.2) K/uL Neutrophils % (Manual) 91 H (50-75) % Band Neutrophils % 1 (0-2) % Lymphocytes % (Manual) 5 L (20-40) % Monocytes % (Manual) 3 (0-10) % Platelet Estimate Markedly decreased L (NORMAL) Hypochromasia (manual) Moderate Poikilocytosis (manual Moderate Anisocytosis (manual) Moderate Microcytosis (manual) Slight Macrocytosis (manual) Slight Target Cells Slight Ovalocytes Slight Puncture Site pCO2 (35-45) mm/Hg pO2 (80-100) mm/Hg HCO3 (21-28) mmol/L ABG pH (7.35-7.45) ABG Total CO2 (22-28) mmol/L ABG O2 Saturation (95-98) % ABG Base Excess (-2.0-3.0) mmol/L Daljit Test ABG Potassium (3.6-5.2) mmol/L A-a O2 Difference mm/Hg Respiratory Index Glucose (65-105) mg/dl Lactate (0.7-2.1) mmol/L Vent Mode FiO2 % Inspiratory BiPAP Expiratory BiPAP Sodium (132-148) mmol/L Potassium (3.6-5.2) mmol/L Chloride (98-107) mmol/L Carbon Dioxide (22-30) mmol/L Anion Gap (10-20) BUN (7-17) mg/dL Creatinine (0.7-1.2) mg/dL Est GFR ( Amer) Est GFR (Non-Af Amer) Random Glucose (65-105) mg/dL Calcium (8.6-10.4) mg/dl Phosphorus (2.5-4.5) mg/dL Magnesium (1.6-2.3) mg/dL Total Bilirubin (0.2-1.3) mg/dL AST (14-36) U/L ALT (9-52) U/L Alkaline Phosphatase (38-126) U/L Total Protein (6.3-8.3) g/dL Albumin (3.5-5.0) g/dL Globulin (2.2-3.9) gm/dL Albumin/Globulin Ratio (1.0-2.1) Arterial Blood Potassium (3.6-5.2) mmol/L Blood Type Antibody Screen Laboratory Results - last 24 hr 04/12/17 04/12/17 04/12/17 06:46 06:46 08:04 WBC 8.7 D RBC 1.96 L Hgb 5.8 L* Hct 17.4 L MCV 88.7 MCH 29.7 MCHC 33.4 RDW 19.7 H Plt Count 7 L* D MPV 10.5 Neut % (Auto) 91.6 H Lymph % (Auto) 4.1 L [place] % (Auto) 4.0 Eos % (Auto) 0.1 Baso % (Auto) 0.2 Neut # 8.0 H Lymph # 0.4 L [place] # 0.3 Eos # 0.0 Baso # 0.0 Neutrophils % (Manual) 91 H Band Neutrophils % 1 Lymphocytes % (Manual) 5 L Monocytes % (Manual) 3 Platelet Estimate Markedly decreased L Hypochromasia (manual) Moderate Poikilocytosis (manual Moderate Anisocytosis (manual) Moderate Microcytosis (manual) Slight Macrocytosis (manual) Slight Target Cells Slight Ovalocytes Slight Puncture Site pCO2 pO2 HCO3 ABG pH ABG Total CO2 ABG O2 Saturation ABG Base Excess Daljit Test ABG Potassium A-a O2 Difference Respiratory Index Glucose Lactate Vent Mode FiO2 Inspiratory BiPAP Expiratory BiPAP Sodium 143 Potassium 2.8 L Chloride 98 Carbon Dioxide 42 H* D Anion Gap 6 L BUN 29 H Creatinine 0.5 L Est GFR ( Amer) > 60 Est GFR (Non-Af Amer) > 60 Random Glucose 124 H Calcium 8.8 Phosphorus 2.8 Magnesium 1.5 L Total Bilirubin 2.4 H AST 65 H D ALT 106 H Alkaline Phosphatase 277 H Total Protein 4.2 L Albumin 2.0 L Globulin 2.2 Albumin/Globulin Ratio 0.9 L Arterial Blood Potassium Blood Type O POSITIVE Antibody Screen Negative 04/12/17 10:21 WBC RBC Hgb Hct MCV MCH MCHC RDW Plt Count MPV Neut % (Auto) Lymph % (Auto) [place] % (Auto) Eos % (Auto) Baso % (Auto) Neut # Lymph # [place] # Eos # Baso # Neutrophils % (Manual) Band Neutrophils % Lymphocytes % (Manual) Monocytes % (Manual) Platelet Estimate Hypochromasia (manual) Poikilocytosis (manual Anisocytosis (manual) Microcytosis (manual) Macrocytosis (manual) Target Cells Ovalocytes Puncture Site Lr pCO2 59 H pO2 162 H HCO3 36.8 H ABG pH 7.46 H ABG Total CO2 43.8 H ABG O2 Saturation 100.6 H ABG Base Excess 15.2 H Daljit Test Pos ABG Potassium 2.9 L A-a O2 Difference 477.0 Respiratory Index 2.9 Glucose 117 H Lactate 1.5 Vent Mode Bipap FiO2 100.0 Inspiratory BiPAP 18 Expiratory BiPAP 8 Sodium 150.0 H Potassium Chloride 112.0 H Carbon Dioxide Anion Gap BUN Creatinine Est GFR ( Amer) Est GFR (Non-Af Amer) Random Glucose Calcium Phosphorus Magnesium Total Bilirubin AST ALT Alkaline Phosphatase Total Protein Albumin Globulin Albumin/Globulin Ratio Arterial Blood Potassium 2.9 L Blood Type Antibody Screen Critical Care Progress Note - Nutrition Nutrition: Nutrition Category Date Time Status Regular Diet [DIET] Diets 04/06/17 Lunch Active Assessment/Plan (1) Acute respiratory failure Current Visit: Yes Status: Acute Comment: worsening bilateral infiltrate consistent with pulmonary edema Continue BiPAP IV Lasix Continue high-dose steroids Continue IV antibiotics hematology follow-up for thrombocytopenia (2) Anemia Current Visit: Yes Status: Acute (3) Systemic lupus Current Visit: Yes Status: Acute (4) Thrombocytopenia Current Visit: Yes Status: Acute Attending/Attestation - Attestation I have personally seen and examined this patient.: Yes I have fully participated in the care of the patient.: Yes I have reviewed all pertinent clinical information: Yes Notes (Text): 04/12/17 16:11 patient seen and examined in the intensive care Case discussed with house staff in the morning rounds. remains on BiPAP with improving oxygenation Awake and responsive Afebrile Seen by hematology and the plan is to give gamma globulins Family still has not decided for cyclophosphamide Transfuse platelets and packed RBCs Continue ICU monitoring
--- NOTE | 2017-04-12 11:55 | CP.PCM.PN ---
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 Objective - Vital Signs/Intake and Output Vital Signs (last 24 hours): Temp Pulse Resp BP Pulse Ox 98.1 F 107 H 28 H 128/76 100 04/12/17 10:22 04/12/17 10:22 04/12/17 10:22 04/12/17 10:22 04/12/17 05:43 Intake and Output: 04/12/17 04/12/17 06:59 18:59 Intake Total 820 100 Output Total 1820 30 Balance -1000 70 - Medications Medications: Current Medications Albuterol/Ipratropium (Duoneb 3 Mg/0.5 Mg (3 Ml) Ud) 3 ml INH RQ6 [facility] Last Admin: 04/12/17 08:04 Dose: 3 ml Atovaquone (Mepron) 1,500 mg PO DAILY [facility] Last Admin: 04/12/17 10:35 Dose: Not Given Emollient Ointment (Vaseline Oint) 5 gm TOP Q4 PRN PRN Reason: DRY SKIN Last Admin: 04/11/17 17:37 Dose: 5 gm Furosemide (Lasix) 40 mg IVP Q12 [facility] Last Admin: 04/11/17 21:59 Dose: 40 mg Gabapentin (Neurontin) 400 mg PO BID [facility] Last Admin: 04/12/17 10:36 Dose: Not Given Hydroxychloroquine Sulfate (Plaquenil) 200 mg PO DAILY [facility] Last Admin: 04/12/17 10:36 Dose: Not Given Fluconazole (Diflucan Iv 200 Mg/100 Ml Ns) 100 mls @ 100 mls/hr IVPB DAILY [facility] Last Admin: 04/12/17 10:37 Dose: 100 mls/hr Aztreonam 1 gm/ Sodium (Chloride) 100 mls @ 100 mls/hr IVPB Q8H [facility] Last Admin: 04/12/17 10:36 Dose: 100 mls/hr Linezolid (Zyvox 600mg/300ml D5w) 600 mg in 300 mls @ 200 mls/hr IVPB Q12H [facility] Last Admin: 04/12/17 10:39 Dose: 200 mls/hr Potassium Chloride (Potassium Chloride 20 Meq/100 Ml) 20 meq in 100 mls @ 25 mls/hr IVPB Q4 [facility] Stop: 04/12/17 23:59 Last Admin: 04/12/17 11:39 Dose: 25 mls/hr Immune Globulin (Octagam 5%) 30 gm IV DAILY [facility] Stop: 04/17/17 12:01 Methylprednisolone (Solu-Medrol) 250 mg IV Q6H [facility] Last Admin: 04/12/17 06:54 Dose: 250 mg Ondansetron HCl (Zofran Inj) 4 mg IVP Q6H PRN PRN Reason: Nausea/Vomiting Last Admin: 03/20/17 15:01 Dose: 4 mg Pantoprazole Sodium (Protonix Ec Tab) 40 mg PO DAILY [facility] Last Admin: 04/12/17 10:38 Dose: Not Given - Labs Labs: 04/12/17 06:46 04/12/17 06:46 PT 16.3 SECONDS (9.7-12.2) H 04/05/17 10:54 INR 1.4 04/05/17 10:54 APTT 32 SECONDS (21-34) 04/05/17 10:54 - Head Exam Head Exam: ATRAUMATIC - Eye Exam Eye Exam: Normal appearance - ENT Exam ENT Exam: Mucous Membranes Dry - Respiratory Exam Respiratory Exam: Respiratory Distress - Cardiovascular Exam Cardiovascular Exam: +S1, +S2 - GI/Abdominal Exam GI & Abdominal Exam: Normal Bowel Sounds - Extremities Exam Extremities Exam: Pedal Edema Assessment and Plan (1) Thrombocytopenia Assessment & Plan: immune mediated steroid dosing increased f/u bone marrow biopsy results; prelim flow cytometery negative for clonal/ malignant cells Status: Acute (2) Anemia Assessment & Plan: anemia of chronic disease immune mediated component on steroids f/u bone marrow biopsy Status: Acute (3) Coagulopathy Assessment & Plan: nutritional repeat fibrinogen Status: Acute
[2017-04-12] MEDS ORDERED: Immune Globulin 50 MG/ML (OCTAGAM 5%) 10 GM/200 ML IV SCH (12:00)
[2017-04-12] MEDS ORDERED: Magnesium Sulfate 1 gm in D5W 1 GM/100 ML BAG IVPB ONE (12:30)
[2017-04-12] MEDS: DiphenhydrAMINE 50 mg/ml Inj IVP SCH (14:11)
[2017-04-12] MEDS: Immune Globulin 50 MG/ML 600 ML IV SCH (14:22)
[2017-04-12] MEDS ORDERED: Micafungin 100 MG in Sodium Chloride 0.9% 100 ML IV SCH (19:00)
[2017-04-12] MEDS ORDERED: Acyclovir 500 MG in Sodium Chloride 0.9% 100 ML IV SCH (19:15)
--- NOTE | 2017-04-12 19:15 | CP.PCM.PN ---
Subjective - Date & Time of Evaluation Date of Evaluation: 04/12/17 Time of Evaluation: 08:00 - Subjective Subjective: severe immune mediated cytopenia pneumonitis resp failure iv rx in progress cultures neg thus far Objective - Vital Signs/Intake and Output Vital Signs (last 24 hours): Temp Pulse Resp BP Pulse Ox 98.1 F 89 25 H 138/81 98 04/12/17 18:43 04/12/17 18:43 04/12/17 18:43 04/12/17 18:43 04/12/17 18:00 Intake and Output: 04/12/17 04/13/17 18:59 06:59 Intake Total 2522 Output Total 30 Balance 2492 - Medications Medications: Current Medications Acetaminophen (Tylenol 325mg Tab) 650 mg PO DAILY@1330 [facility] Last Admin: 04/12/17 14:11 Dose: 650 mg Albuterol/Ipratropium (Duoneb 3 Mg/0.5 Mg (3 Ml) Ud) 3 ml INH RQ6 [facility] Last Admin: 04/12/17 13:32 Dose: Not Given Atovaquone (Mepron) 1,500 mg PO DAILY [facility] Last Admin: 04/12/17 10:35 Dose: Not Given Diphenhydramine HCl (Benadryl) 50 mg IVP DAILY@1330 [facility] Last Admin: 04/12/17 14:11 Dose: 50 mg Emollient Ointment (Vaseline Oint) 5 gm TOP Q4 PRN PRN Reason: DRY SKIN Last Admin: 04/11/17 17:37 Dose: 5 gm Furosemide (Lasix) 40 mg IVP Q12 [facility] Last Admin: 04/11/17 21:59 Dose: 40 mg Gabapentin (Neurontin) 400 mg PO BID [facility] Last Admin: 04/12/17 17:38 Dose: Not Given Hydrocortisone Sodium Succinate (Solu-Cortef) 100 mg IV DAILY@1330 [facility] Last Admin: 04/12/17 14:11 Dose: 100 mg Aztreonam 1 gm/ Sodium (Chloride) 100 mls @ 100 mls/hr IVPB Q8H [facility] Last Admin: 04/12/17 17:38 Dose: 100 mls/hr Linezolid (Zyvox 600mg/300ml D5w) 600 mg in 300 mls @ 200 mls/hr IVPB Q12H [facility] Last Admin: 04/12/17 10:39 Dose: 200 mls/hr Potassium Chloride (Potassium Chloride 20 Meq/100 Ml) 20 meq in 100 mls @ 25 mls/hr IVPB Q4 [facility] Stop: 04/12/17 23:59 Last Admin: 04/12/17 16:01 Dose: 25 mls/hr Immune Globulin (Octagam 5%) 600 mls @ 0 mls/hr IV DAILY@1400 [facility] PRN Reason: UD Stop: 04/16/17 14:01 Last Admin: 04/12/17 14:22 Dose: 60 mls/hr Micafungin Sodium 100 mg/ (Sodium Chloride) 100 mls @ 100 mls/hr IV Q24H [facility] Methylprednisolone (Solu-Medrol) 250 mg IV Q6H [facility] Last Admin: 04/12/17 17:39 Dose: 250 mg Ondansetron HCl (Zofran Inj) 4 mg IVP Q6H PRN PRN Reason: Nausea/Vomiting Last Admin: 03/20/17 15:01 Dose: 4 mg Pantoprazole Sodium (Protonix Ec Tab) 40 mg PO DAILY [facility] Last Admin: 04/12/17 10:38 Dose: Not Given - Labs Labs: 04/12/17 06:46 04/12/17 06:46 PT 16.3 SECONDS (9.7-12.2) H 04/05/17 10:54 INR 1.4 04/05/17 10:54 APTT 32 SECONDS (21-34) 04/05/17 10:54 - Constitutional Appears: Non-toxic, Cachectic, Chronically Ill - Head Exam Head Exam: NORMOCEPHALIC - Eye Exam Eye Exam: absent: Scleral icterus - ENT Exam ENT Exam: Mucous Membranes Dry - Neck Exam Neck Exam: absent: Lymphadenopathy - Respiratory Exam Respiratory Exam: Decreased Breath Sounds - Cardiovascular Exam Cardiovascular Exam: REGULAR RHYTHM - GI/Abdominal Exam GI & Abdominal Exam: Distended, Soft - Rectal Exam Rectal Exam: Deferred - Exam Exam: NORMAL INSPECTION - Extremities Exam Extremities Exam: absent: Pedal Edema - Back Exam Back Exam: absent: CVA tenderness (L), CVA tenderness (R) Assessment and Plan (1) Anemia Status: Acute (2) CHF (congestive heart failure) Status: Chronic (3) Coagulopathy Status: Acute (4) Fever Status: Acute (5) Hypoglycemia Status: Acute (6) Leg pain, bilateral Status: Acute (7) Sepsis Status: Acute (8) Thrombocytopenia Status: Acute
[2017-04-12] MEDS ORDERED: Moxifloxacin IV 400mg/250ml NS 400 MG/250 ML BAG IVPB SCH (20:00)
[2017-04-12] MEDS: Moxifloxacin IV 400mg/250ml NS 400 MG/250 ML BAG IVPB SCH (21:00)
[2017-04-12] MEDS: Acyclovir 500 MG in Sodium Chloride 0.9% 100 ML IV SCH (21:00)
--- NOTE | 2017-04-12 23:17 | CP.PCM.PN ---
Subjective - Date & Time of Evaluation Date of Evaluation: 04/12/17 Time of Evaluation: 13:15 - Subjective Subjective: Patient's status critical. Still on Bipap. Platlets 7,100 and Hgb 5.8. Patient's family has refused cytoxin or rituxan infusion. Objective - Vital Signs/Intake and Output Vital Signs (last 24 hours): Temp Pulse Resp BP Pulse Ox 98 F 87 14 112/63 100 04/12/17 21:10 04/12/17 22:23 04/12/17 22:23 04/12/17 22:23 04/12/17 22:23 Intake and Output: 04/12/17 04/13/17 18:59 06:59 Intake Total 2522 1090 Output Total 30 400 Balance 2492 690 - Medications Medications: Current Medications Acetaminophen (Tylenol 325mg Tab) 650 mg PO DAILY@1330 [facility] Last Admin: 04/12/17 14:11 Dose: 650 mg Albuterol/Ipratropium (Duoneb 3 Mg/0.5 Mg (3 Ml) Ud) 3 ml INH RQ6 [facility] Last Admin: 04/12/17 19:55 Dose: 3 ml Atovaquone (Mepron) 1,500 mg PO DAILY [facility] Last Admin: 04/12/17 10:35 Dose: Not Given Diphenhydramine HCl (Benadryl) 50 mg IVP DAILY@1330 [facility] Last Admin: 04/12/17 14:11 Dose: 50 mg Emollient Ointment (Vaseline Oint) 5 gm TOP Q4 PRN PRN Reason: DRY SKIN Last Admin: 04/11/17 17:37 Dose: 5 gm Furosemide (Lasix) 40 mg IVP Q12 [facility] Last Admin: 04/11/17 21:59 Dose: 40 mg Gabapentin (Neurontin) 400 mg PO BID [facility] Last Admin: 04/12/17 17:38 Dose: Not Given Hydrocortisone Sodium Succinate (Solu-Cortef) 100 mg IV DAILY@1330 [facility] Last Admin: 04/12/17 14:11 Dose: 100 mg Potassium Chloride (Potassium Chloride 20 Meq/100 Ml) 20 meq in 100 mls @ 25 mls/hr IVPB Q4 [facility] Stop: 04/12/17 23:59 Last Admin: 04/12/17 20:42 Dose: 25 mls/hr Immune Globulin (Octagam 5%) 600 mls @ 0 mls/hr IV DAILY@1400 [facility] PRN Reason: UD Stop: 04/16/17 14:01 Last Admin: 04/12/17 14:22 Dose: 60 mls/hr Micafungin Sodium 100 mg/ (Sodium Chloride) 100 mls @ 100 mls/hr IV Q24H [facility] Acyclovir 500 mg/ Sodium (Chloride) 100 mls @ 100 mls/hr IV Q8H [facility] Last Admin: 04/12/17 21:00 Dose: 100 mls/hr Moxifloxacin HCl (Avelox Iv 400mg/250ml Ns) 400 mg in 250 mls @ 167 mls/hr IVPB Q24H [facility] Last Admin: 04/12/17 21:00 Dose: 167 mls/hr Methylprednisolone (Solu-Medrol) 250 mg IV Q6H [facility] Last Admin: 04/12/17 17:39 Dose: 250 mg Pantoprazole Sodium (Protonix Ec Tab) 40 mg PO DAILY [facility] Last Admin: 04/12/17 10:38 Dose: Not Given - Labs Labs: 04/12/17 06:46 04/12/17 06:46 PT 16.3 SECONDS (9.7-12.2) H 04/05/17 10:54 INR 1.4 04/05/17 10:54 APTT 32 SECONDS (21-34) 04/05/17 10:54 - Constitutional Appears: Chronically Ill - Head Exam Head Exam: NORMOCEPHALIC - Eye Exam Eye Exam: Normal appearance Pupil Exam: NORMAL ACCOMODATION - ENT Exam ENT Exam: Normal Exam - Neck Exam Neck Exam: Normal Inspection - Respiratory Exam Respiratory Exam: Decreased Breath Sounds - Cardiovascular Exam Cardiovascular Exam: REGULAR RHYTHM - GI/Abdominal Exam GI & Abdominal Exam: Normal Bowel Sounds - Rectal Exam Rectal Exam: Deferred - Exam External exam: NORMAL EXTERNAL EXAM - Extremities Exam Extremities Exam: Pedal Edema - Back Exam Back Exam: NORMAL INSPECTION - Neurological Exam Neurological Exam: Altered - Psychiatric Exam Psychiatric exam: Depressed - Skin Skin Exam: Dry Assessment and Plan (1) Systemic lupus Status: Acute (2) Anemia Status: Acute (3) CHF (congestive heart failure) Status: Chronic (4) Coagulopathy Status: Acute (5) Leg pain, bilateral Status: Acute (6) Elevated troponin Status: Resolved
[2017-04-13] MEDS: Albuterol-Ipratrop 3 mg / 0.5 (3 ml) UD INH SCH ×4 (01:29→20:05)
[2017-04-13] MEDS: Acyclovir 500 MG in Sodium Chloride 0.9% 100 ML IV SCH ×3 (03:25→19:19)
[2017-04-13 05:51] LABS: ABG ALLEN TEST POS; ARTERIAL BLOOD GAS HCO3 36.6 mmol/L (21-28); ARTERIAL BLOOD GAS HEMOGLOBIN 7.9 g/dL (11.7-17.4); ARTERIAL BLOOD GAS O2 SAT 97.8 % (95-98); ARTERIAL BLOOD GAS PCO2 54 mm/Hg (35-45); ARTERIAL BLOOD GAS PH 7.48 (7.35-7.45); ARTERIAL BLOOD GAS PO2 65 mm/Hg (80-100); ARTERIAL BLOOD GAS TCO2 41.9 mmol/L (22-28)
[2017-04-13 06:37] LABS: BASO # 0.1 K/uL (0.0-0.2); BASO % 0.4 % (0.0-2.0); EOS % 0.1 % (0.0-4.0); LYMPH # 0.2 K/uL (1.0-4.3); LYMPH % 1.1 % (20.0-40.0); MEAN CELL VOLUME 87.3 fL (81.0-99.0); MEAN CORPUSCULAR HEMOGLOBIN 29.2 pg (27.0-31.0); MEAN CORPUSCULAR HGB CONC 33.5 g/dL (33.0-37.0); MEAN PLATELET VOLUME 9.7 fL (7.2-11.7); MONO # 0.6 K/uL (0.0-0.8); MONO % 3.7 % (0.0-10.0); NEUT # 14.2 K/uL (1.8-7.0); NEUT % 94.7 % (50.0-75.0); RBC 2.73 Mil/uL (3.80-5.20); RED CELL DISTRIBUTION WIDTH 17.6 % (11.5-14.5)
[2017-04-13 06:49] LABS: PLATELET COUNT 27 K/uL (130-400)
[2017-04-13 06:58] LABS: ALB/GLOB RATIO 0.8 (1.0-2.1); ALBUMIN 2.4 g/dL (3.5-5.0); ALT/SGPT 113 U/L (9-52); AST/SGOT 85 U/L (14-36); BLOOD UREA NITROGEN 32 mg/dL (7-17); CALCIUM 8.9 mg/dl (8.6-10.4); GFR AFRICAN-AMERICAN > 60; GFR NON-AFRICAN AMERICAN > 60; MAGNESIUM 1.7 mg/dL (1.6-2.3)
--- NOTE | 2017-04-13 07:19 | PN ---
DATE: SUBJECTIVE: Ms. Awad is on the vent, in ICU with shortness of breath. PHYSICAL EXAMINATION: VITAL SIGNS: Blood pressure 110/70, pulse is 112. HEENT: Within normal limits. NECK: Supple. CHEST: Symmetrical. HEART: Regular. ABDOMEN: Soft. EXTREMITIES: There is 2+ edema. ASSESSMENT: I discussed the case with Dr. Puckett and Dr. Daley. In view of persistent severe thrombocytopenia, hemolytic anemia, and overall severe myositis and pulmonary embolus, I discussed starting hypertoxic agent. Dr. Puckett has agreed with and Dr. Daley was . The patient's overall prognosis is extremely guarded. PLAN: . Marah Pillai MD
[2017-04-13 08:16] LABS: LYMPHOCYTE 1 % (20-40); MONOCYTE 2 % (0-10); NEUTROPHIL 97 % (50-75); TOTAL CELLS COUNTED 100
[2017-04-13 08:17] LABS: ANISOCYTOSIS SLIGHT; HYPOCHROMIC SLIGHT; PLATELET ESTIMATE MARKEDLY DECREASED (NORMAL); POIKILOCYTOSIS SLIGHT; TARGET CELLS SLIGHT
[2017-04-13] MEDS: Atovaquone 750 mg/5 ml Susp UD PO SCH (09:11)
[2017-04-13] MEDS: Pantoprazole 40 mg EC Tab PO SCH (09:11)
[2017-04-13] MEDS: Micafungin 100 MG in Sodium Chloride 0.9% 100 ML IV SCH (09:12)
[2017-04-13] MEDS ORDERED: Potassium Phosphate 15 MMOLE in Sodium Chloride 0.9% 100 ML IV ONE (09:43)
--- NOTE | 2017-04-13 11:35 | RAD ---
HISTORY: BiPAP COMPARISON: 04/11/2017 FINDINGS: LUNGS: Interval is diffuse haziness compatible with the interval increase coalescing interstitial pulmonary edema/ ARDS is compatible with this para submit bilateral pleural effusions left greater than right also inferred. The interstitial pulmonary edema likely superimposed airspace opacity most dense confluent the left lung base. PLEURA: Bilateral pleural effusions left greater than right - increased since prior exam. No pneumothorax CARDIOVASCULAR: Cardiomegaly as before OSSEOUS STRUCTURES: No significant abnormalities. VISUALIZED UPPER ABDOMEN: Normal. OTHER FINDINGS: None. IMPRESSION: Interval increased diffuse interstitial pulmonary edema -appearance can be seen with ARDS. Concomitant interval increased bilateral pleural effusions left greater than right. In addition to the interstitial pulmonary edema, concomitant airspace opacity over the left lung base suggested few air bronchograms here noted. Continued follow-up recommended
[2017-04-13] MEDS: DiphenhydrAMINE 50 mg/ml Inj IVP SCH (12:30)
--- NOTE | 2017-04-13 13:23 | CP.CCUPN ---
<Thais Luz - Last Filed: 04/13/17 13:14> CCU Subjective - Physician Review Subjective (Free Text): 04/13/17 13:14 Patient seen and examined at bedside. Patient resting in bed on BiPAP. No acute events over night. Pt has no new complaints at this time. Patient denies chest pain, SOB, palpitations, abdominal pain, n/v/d. CCU Objective - Vital Signs / Intake & Output Vital Signs (Last 4 hours): Vital Signs Temp Pulse Resp BP Pulse Ox 04/13/17 13:00 138 H 29 H 04/13/17 12:08 123 H 35 H 150/100 H 94 L 04/13/17 12:00 97.8 F 124 H 15 93 L 04/13/17 11:36 123 H 04/13/17 11:08 118 H 37 H 154/102 H 94 L 04/13/17 11:00 116 H 26 H 96 04/13/17 10:08 120 H 38 H 157/110 H 95 04/13/17 10:00 120 H 29 H 94 L Intake and Output (Last 8hrs): Intake & Output 04/12/17 04/13/17 04/13/17 22:59 06:59 14:59 Intake Total 2517 485 700 Output Total 580 360 860 Balance 1937 125 -160 Weight 190 lb 14.4 oz Intake: Intake, IV Amount 1430 160 450 Right Distal Port Femoral 50 Right Medial Port Femoral 480 160 200 Right Proximal Port 950 0 200 Femoral Oral 50 250 TPN/PPN 300 Blood Product 587 325 Apheresis Plts Acda Lr 294 Irr Unit [id number] Apheresis Plts Acda Lr 293 Irr 2nd Unit [id number] Red Blood Cells Cpd As1 0 325 Lr Unit [id number] Other 150 Apheresis Plts Acda Lr 50 Irr Unit [id number] Apheresis Plts Acda Lr 100 Irr 2nd Unit [id number] Output: Urine 580 360 860 Urethral (Lewis) 580 360 860 Other: # Bowel Movements 0 - Physical Exam Head: Positive for: Atraumatic, Normocephalic Pupils: Positive for: PERRL Extroacular Muscles: Positive for: EOMI Conjunctiva: Positive for: Normal Mouth: Positive for: Moist Mucous Membranes Neck: Negative for: JVD Respiratory/Chest: Positive for: Clear to Auscultation, Accessory Muscle Use, Tachypneic, Other (on BiPAP). Negative for: Respiratory Distress, Wheezes, Rales, Rhonchi Cardiovascular: Positive for: Normal S1, S2, Tachycardic. Negative for: Bradycardic Abdomen: Positive for: Normal Bowel Sounds. Negative for: Tenderness, Distention, Peritoneal Signs Upper Extremity: Positive for: Edema Lower Extremity: Positive for: Edema. Negative for: Tenderness Neurological: Positive for: GCS=15, Speech Normal Skin: Positive for: Warm, Dry. Negative for: Rashes Psychiatric: Positive for: Alert, Oriented x 3, Normal Insight, Normal Concentration - Medications Active Medications: Active Medications Generic Name Dose Route Start Last Admin Trade Name Freq PRN Reason Stop Dose Admin Acetaminophen 650 mg 04/12/17 13:30 04/12/17 14:11 Tylenol 325mg Tab PO 650 mg DAILY@1330 IMAN Administration Acetazolamide 500 mg 04/13/17 18:00 Diamox 500 Mg Inj IV 04/15/17 10:01 BID IMAN Albuterol/Ipratropium 3 ml 04/01/17 14:00 04/13/17 08:03 Duoneb 3 Mg/0.5 Mg (3 Ml) Ud INH 3 ml RQ6 IMAN Administration Atovaquone 1,500 mg 04/06/17 10:00 04/13/17 09:11 Mepron PO 1,500 mg DAILY IMAN Administration Diphenhydramine HCl 50 mg 04/12/17 13:30 04/13/17 12:30 Benadryl IVP 50 mg DAILY@1330 IMAN Administration Emollient Ointment 5 gm 03/31/17 12:18 04/11/17 17:37 Vaseline Oint TOP 5 gm Q4 PRN Administration DRY SKIN Furosemide 40 mg 04/13/17 10:00 04/13/17 09:14 Lasix IVP 40 mg Q12 IMAN Administration Gabapentin 400 mg 03/23/17 10:00 04/13/17 09:11 Neurontin PO 400 mg BID IMAN Administration Hydrocortisone Sodium Succinate 100 mg 04/12/17 13:30 04/12/17 14:11 Solu-Cortef IV 100 mg DAILY@1330 IMAN Administration Immune Globulin 600 mls @ 0 mls/hr 04/12/17 14:00 04/12/17 14:22 Octagam 5% IV 04/16/17 14:01 60 mls/hr DAILY@1400 IMAN Administration UD Micafungin Sodium 100 mg/ 100 mls @ 100 mls/hr 04/13/17 10:00 04/13/17 09:12 Sodium Chloride IV 100 mls/hr Q24H IMAN Administration Acyclovir 500 mg/ Sodium 100 mls @ 100 mls/hr 04/12/17 20:00 04/13/17 12:30 Chloride IV 100 mls/hr Q8H IMAN Administration Moxifloxacin HCl 400 mg in 250 mls @ 167 mls/hr 04/12/17 21:00 04/12/17 21:00 Avelox Iv 400mg/250ml Ns IVPB 167 mls/hr Q24H IMAN Administration Potassium Chloride 20 meq in 100 mls @ 50 mls/hr 04/13/17 10:00 04/13/17 09: 23 Potassium Chloride 20 Meq/100 Ml IVPB 04/13/17 23:59 50 mls/hr Q4H IMAN Administration Pantoprazole Sodium 40 mg 04/06/17 10:00 04/13/17 09:11 Protonix Ec Tab PO 40 mg DAILY IMAN Administration - Patient Studies Lab Studies: Lab Studies 04/13/17 04/13/17 04/13/17 Range/Units 06:20 06:18 06:18 WBC 15.0 H D (4.8-10.8) K/uL RBC 2.73 L (3.80-5.20) Mil/uL Hgb 8.0 L D (11.0-16.0) g/dL Hct 23.8 L (34.0-47.0) % MCV 87.3 (81.0-99.0) fL MCH 29.2 (27.0-31.0) pg MCHC 33.5 (33.0-37.0) g/dL RDW 17.6 H (11.5-14.5) % Plt Count 27 L* D (130-400) K/uL MPV 9.7 (7.2-11.7) fL Neut % (Auto) 94.7 H (50.0-75.0) % Lymph % (Auto) 1.1 L (20.0-40.0) % [place] % (Auto) 3.7 (0.0-10.0) % Eos % (Auto) 0.1 (0.0-4.0) % Baso % (Auto) 0.4 (0.0-2.0) % Neut # 14.2 H (1.8-7.0) K/uL Lymph # 0.2 L (1.0-4.3) K/uL [place] # 0.6 (0.0-0.8) K/uL Eos # 0.0 (0.0-0.7) K/uL Baso # 0.1 (0.0-0.2) K/uL Neutrophils % (Manual) 97 H (50-75) % Lymphocytes % (Manual) 1 L (20-40) % Monocytes % (Manual) 2 (0-10) % Platelet Estimate Markedly decreased L (NORMAL) Hypochromasia (manual) Slight Poikilocytosis (manual Slight Anisocytosis (manual) Slight Target Cells Slight ESR 33 H (0-20) mm/hr Fibrinogen 190 L (200-400) mg/dL Puncture Site pCO2 (35-45) mm/Hg pO2 (80-100) mm/Hg HCO3 (21-28) mmol/L ABG pH (7.35-7.45) ABG Total CO2 (22-28) mmol/L ABG O2 Saturation (95-98) % ABG Base Excess (-2.0-3.0) mmol/L ABG Hemoglobin (11.7-17.4) g/dL ABG Carboxyhemoglobin (0.5-1.5) % POC ABG HHb (Measured) (0.0-5.0) % ABG Methemoglobin (0.0-3.0) % Daljit Test A-a O2 Difference mm/Hg Respiratory Index Hgb O2 Saturation (95.0-98.0) % Vent Mode FiO2 % Inspiratory BiPAP Expiratory BiPAP Sodium 142 (132-148) mmol/L Potassium 3.2 L (3.6-5.2) mmol/L Chloride 101 (98-107) mmol/L Carbon Dioxide 39 H (22-30) mmol/L Anion Gap 5 L (10-20) BUN 32 H (7-17) mg/dL Creatinine 0.3 L (0.7-1.2) mg/dL Est GFR ( Amer) > 60 Est GFR (Non-Af Amer) > 60 Random Glucose 120 H (65-105) mg/dL Calcium 8.9 (8.6-10.4) mg/dl Phosphorus 2.3 L (2.5-4.5) mg/dL Magnesium 1.7 (1.6-2.3) mg/dL Total Bilirubin 3.6 H (0.2-1.3) mg/dL AST 85 H D (14-36) U/L ALT 113 H (9-52) U/L Alkaline Phosphatase 277 H (38-126) U/L Total Protein 5.5 L (6.3-8.3) g/dL Albumin 2.4 L (3.5-5.0) g/dL Globulin 3.1 (2.2-3.9) gm/dL Albumin/Globulin Ratio 0.8 L (1.0-2.1) Blood Type Antibody Screen 04/13/17 04/12/17 Range/Units 05:28 08:04 WBC (4.8-10.8) K/uL RBC (3.80-5.20) Mil/uL Hgb (11.0-16.0) g/dL Hct (34.0-47.0) % MCV (81.0-99.0) fL MCH (27.0-31.0) pg MCHC (33.0-37.0) g/dL RDW (11.5-14.5) % Plt Count (130-400) K/uL MPV (7.2-11.7) fL Neut % (Auto) (50.0-75.0) % Lymph % (Auto) (20.0-40.0) % [place] % (Auto) (0.0-10.0) % Eos % (Auto) (0.0-4.0) % Baso % (Auto) (0.0-2.0) % Neut # (1.8-7.0) K/uL Lymph # (1.0-4.3) K/uL [place] # (0.0-0.8) K/uL Eos # (0.0-0.7) K/uL Baso # (0.0-0.2) K/uL Neutrophils % (Manual) (50-75) % Lymphocytes % (Manual) (20-40) % Monocytes % (Manual) (0-10) % Platelet Estimate (NORMAL) Hypochromasia (manual) Poikilocytosis (manual Anisocytosis (manual) Target Cells ESR (0-20) mm/hr Fibrinogen (200-400) mg/dL Puncture Site Rr pCO2 54 H (35-45) mm/Hg pO2 65 L (80-100) mm/Hg HCO3 36.6 H (21-28) mmol/L ABG pH 7.48 H (7.35-7.45) ABG Total CO2 41.9 H (22-28) mmol/L ABG O2 Saturation 97.8 (95-98) % ABG Base Excess 15.0 H (-2.0-3.0) mmol/L ABG Hemoglobin 7.9 L (11.7-17.4) g/dL ABG Carboxyhemoglobin 3.4 H (0.5-1.5) % POC ABG HHb (Measured) 2.1 (0.0-5.0) % ABG Methemoglobin 0.9 (0.0-3.0) % Daljit Test Pos A-a O2 Difference 581.0 mm/Hg Respiratory Index 8.9 Hgb O2 Saturation 93.6 L (95.0-98.0) % Vent Mode Bipap FiO2 100.0 % Inspiratory BiPAP 16 Expiratory BiPAP 8 Sodium (132-148) mmol/L Potassium (3.6-5.2) mmol/L Chloride (98-107) mmol/L Carbon Dioxide (22-30) mmol/L Anion Gap (10-20) BUN (7-17) mg/dL Creatinine (0.7-1.2) mg/dL Est GFR ( Amer) Est GFR (Non-Af Amer) Random Glucose (65-105) mg/dL Calcium (8.6-10.4) mg/dl Phosphorus (2.5-4.5) mg/dL Magnesium (1.6-2.3) mg/dL Total Bilirubin (0.2-1.3) mg/dL AST (14-36) U/L ALT (9-52) U/L Alkaline Phosphatase (38-126) U/L Total Protein (6.3-8.3) g/dL Albumin (3.5-5.0) g/dL Globulin (2.2-3.9) gm/dL Albumin/Globulin Ratio (1.0-2.1) Blood Type O POSITIVE Antibody Screen Negative Laboratory Results - last 24 hr 04/12/17 04/13/17 04/13/17 08:04 05:28 06:18 WBC RBC Hgb Hct MCV MCH MCHC RDW Plt Count MPV Neut % (Auto) Lymph % (Auto) [place] % (Auto) Eos % (Auto) Baso % (Auto) Neut # Lymph # [place] # Eos # Baso # Neutrophils % (Manual) Lymphocytes % (Manual) Monocytes % (Manual) Platelet Estimate Hypochromasia (manual) Poikilocytosis (manual Anisocytosis (manual) Target Cells ESR Fibrinogen 190 L Puncture Site Rr pCO2 54 H pO2 65 L HCO3 36.6 H ABG pH 7.48 H ABG Total CO2 41.9 H ABG O2 Saturation 97.8 ABG Base Excess 15.0 H ABG Hemoglobin 7.9 L ABG Carboxyhemoglobin 3.4 H POC ABG HHb (Measured) 2.1 ABG Methemoglobin 0.9 Daljit Test Pos A-a O2 Difference 581.0 Respiratory Index 8.9 Hgb O2 Saturation 93.6 L Vent Mode Bipap FiO2 100.0 Inspiratory BiPAP 16 Expiratory BiPAP 8 Sodium Potassium Chloride Carbon Dioxide Anion Gap BUN Creatinine Est GFR ( Amer) Est GFR (Non-Af Amer) Random Glucose Calcium Phosphorus Magnesium Total Bilirubin AST ALT Alkaline Phosphatase Total Protein Albumin Globulin Albumin/Globulin Ratio Blood Type O POSITIVE Antibody Screen Negative 04/13/17 04/13/17 06:18 06:20 WBC 15.0 H D RBC 2.73 L Hgb 8.0 L D Hct 23.8 L MCV 87.3 MCH 29.2 MCHC 33.5 RDW 17.6 H Plt Count 27 L* D MPV 9.7 Neut % (Auto) 94.7 H Lymph % (Auto) 1.1 L [place] % (Auto) 3.7 Eos % (Auto) 0.1 Baso % (Auto) 0.4 Neut # 14.2 H Lymph # 0.2 L [place] # 0.6 Eos # 0.0 Baso # 0.1 Neutrophils % (Manual) 97 H Lymphocytes % (Manual) 1 L Monocytes % (Manual) 2 Platelet Estimate Markedly decreased L Hypochromasia (manual) Slight Poikilocytosis (manual Slight Anisocytosis (manual) Slight Target Cells Slight ESR 33 H Fibrinogen Puncture Site pCO2 pO2 HCO3 ABG pH ABG Total CO2 ABG O2 Saturation ABG Base Excess ABG Hemoglobin ABG Carboxyhemoglobin POC ABG HHb (Measured) ABG Methemoglobin Daljit Test A-a O2 Difference Respiratory Index Hgb O2 Saturation Vent Mode FiO2 Inspiratory BiPAP Expiratory BiPAP Sodium 142 Potassium 3.2 L Chloride 101 Carbon Dioxide 39 H Anion Gap 5 L BUN 32 H Creatinine 0.3 L Est GFR ( Amer) > 60 Est GFR (Non-Af Amer) > 60 Random Glucose 120 H Calcium 8.9 Phosphorus 2.3 L Magnesium 1.7 Total Bilirubin 3.6 H AST 85 H D ALT 113 H Alkaline Phosphatase 277 H Total Protein 5.5 L Albumin 2.4 L Globulin 3.1 Albumin/Globulin Ratio 0.8 L Blood Type Antibody Screen Fingerstick Blood Sugar Results: 169 Review of Systems - Review of Systems All systems: reviewed and no additional remarkable complaints except (as per HPI ) Critical Care Progress Note - Nutrition Nutrition: Nutrition Category Date Time Status Regular Diet [DIET] Diets 04/06/17 Lunch Active Assessment/Plan - Assessment and Plan (Free Text) Assessment: 61F with lupus pneumonitis and acute hypoxemic respiratory failure, respiratory acidosis from acute pulmonary edema, bilateral pneumonia, and severe sepsis Plan: Neuro * Neurology consulted (Steve) - recs appreciated * Needs visual field exam per Dr. Puckett * Gabapentin 400 mg PO BID Cardio * Tachycardic * BP stable * 03/29: Troponin + (0.2650, 0.1570) * 03/29: Heparin drip discontinued * Plavix 75 mg PO QD (d/c 04/03) * 04/06 discontinued Crestor 20 mg PO HS * Echo: grade 1 relaxation pattern and mild pulmonary hypertension * EKG: T Wave abnormality * 03/29: BNP 71667 * UE and LE US - negative for DVT Respiratory - lupus pnuemonitis * 03/31/17 Intubated * 04/05/27 Extubated * Currently on BiPAP - saturating well * ABG (04/12/17): 7.46/59/162/36.8 * Daily CXRs * 03/29/17 CTA: b/l interstitial/alveolar infiltrate with superimposed multifocal eder consolidation, dilated main pulmonary artery * Solu-medrol 100 mg IV QD * Duonebs Q6 * Hold Lasix 40 mg IV Q12h Renal * Balance -1840 * BUN/Cr 29/0.5 * Hold Lasix 40 mg IV Q12h Fluids, electrolytes, nutrition * Electrolytes WNL except for those mentioned below * Potassium: 2.8 - replaced, will monitor * Bicarb: 42 * Ma.5 - replaced, will monitor Infectious disease * afebrile * WBC 8.7 * ID consulted (Cici) - recs appreciated * Sputum culture - no growth * Fluconazole 200 mg QD * Mepron 1500 mg PO ACL - for PJP prophylaxis * Aztreonam 1g IV Q8 * Discontinued: * 1g vanc Q12 resumed 04/07 (vanc trough <5) * Doxy 100 IV Q12 * Flagyl 500 mg Q8 (end 04/03) * Tamiflu (end 04/04) * Linezolid 600 mg Q12h (began 04/09, end 04/12/17) Hematology - Anemia, thrombocytopenia * H&H: 5.8/17.4 - transfused 2U pRBCs * Plt: 7 - transfused 2U plts * 04/05: PT/PTT/INR - 16.3/32/1.4; fibrinogen - 331 * 04/05: transfused 1U of platelets * Plavix 75 mg PO QD (d/c 04/03) * Heparin drip discontinued * Heme/Onc consulted (Thuy) - recs appreciated * 04/04: Bone marrow biopsy - f/u results * 03/20: Folate >20, B12 >1000 GI - transaminitis * AST/ALT: elevated - possibly med side effect * Tbili: 2.4 * Zofran PRN Endocrine * monitor blood glucose * 03/24: HbA1c 4.7 * 03/20: AM Cortisol: 27.7, TSH: 1.65, Free T4: 2.22 Integumentary * A&D ointment * Vaseline Rheumatology - History of Lupus and RA * Hydroxychloroquine 200 mg PO QD * IV Ig 30g QD x5 days per Dr. Daley (start date: 04/12/17) * Cytoxan per Dr. Daley * Dr. Puckett consulted - recs appreciated * Daily ESR: * 04/01 55 * 04/03 55 * 04/04 18 * 04/05 20 * 04/06 23 * 04/07 32 * 04/08 34 * 04/09 30 * 04/10 30 Prophylaxis * Protonix 40 mg PO QD <NewAdonay - Last Filed: 04/13/17 14:43> CCU Objective - Vital Signs / Intake & Output Vital Signs (Last 4 hours): Vital Signs Temp Pulse Resp BP Pulse Ox 04/13/17 13:00 138 H 29 H 04/13/17 12:08 123 H 35 H 150/100 H 94 L 04/13/17 12:00 97.8 F 124 H 15 93 L 04/13/17 11:36 123 H 04/13/17 11:08 118 H 37 H 154/102 H 94 L 04/13/17 11:00 116 H 26 H 96 Intake and Output (Last 8hrs): Intake & Output 04/12/17 04/13/17 04/13/17 22:59 06:59 14:59 Intake Total 2517 485 700 Output Total 580 360 860 Balance 1937 125 -160 Weight 190 lb 14.4 oz Intake: Intake, IV Amount 1430 160 450 Right Distal Port Femoral 50 Right Medial Port Femoral 480 160 200 Right Proximal Port 950 0 200 Femoral Oral 50 250 TPN/PPN 300 Blood Product 587 325 Apheresis Plts Acda Lr 294 Irr Unit [id number] Apheresis Plts Acda Lr 293 Irr 2nd Unit [id number] Red Blood Cells Cpd As1 0 325 Lr Unit [id number] Other 150 Apheresis Plts Acda Lr 50 Irr Unit [id number] Apheresis Plts Acda Lr 100 Irr 2nd Unit [id number] Output: Urine 580 360 860 Urethral (Lewis) 580 360 860 Other: # Bowel Movements 0 - Medications Active Medications: Active Medications Generic Name Dose Route Start Last Admin Trade Name Freq PRN Reason Stop Dose Admin Acetaminophen 650 mg 04/12/17 13:30 04/13/17 13:41 Tylenol 325mg Tab PO 650 mg DAILY@1330 IMAN Administration Acetazolamide 500 mg 04/13/17 18:00 Diamox 500 Mg Inj IV 04/15/17 10:01 BID IMAN Albuterol/Ipratropium 3 ml 04/01/17 14:00 04/13/17 14:14 Duoneb 3 Mg/0.5 Mg (3 Ml) Ud INH 3 ml RQ6 IMAN Administration Atovaquone 1,500 mg 04/06/17 10:00 04/13/17 09:11 Mepron PO 1,500 mg DAILY IMAN Administration Diphenhydramine HCl 50 mg 04/12/17 13:30 04/13/17 12:30 Benadryl IVP 50 mg DAILY@1330 IMAN Administration Emollient Ointment 5 gm 03/31/17 12:18 04/11/17 17:37 Vaseline Oint TOP 5 gm Q4 PRN Administration DRY SKIN Furosemide 40 mg 04/13/17 10:00 04/13/17 09:14 Lasix IVP 40 mg Q12 IMAN Administration Gabapentin 400 mg 03/23/17 10:00 04/13/17 09:11 Neurontin PO 400 mg BID IMAN Administration Hydrocortisone Sodium Succinate 100 mg 04/12/17 13:30 04/13/17 13:41 Solu-Cortef IV 100 mg DAILY@1330 IMAN Administration Immune Globulin 600 mls @ 0 mls/hr 04/12/17 14:00 04/13/17 14:26 Octagam 5% IV 04/16/17 14:01 50 mls/hr DAILY@1400 IMAN Administration UD Micafungin Sodium 100 mg/ 100 mls @ 100 mls/hr 04/13/17 10:00 04/13/17 09:12 Sodium Chloride IV 100 mls/hr Q24H IMAN Administration Acyclovir 500 mg/ Sodium 100 mls @ 100 mls/hr 04/12/17 20:00 04/13/17 12:30 Chloride IV 100 mls/hr Q8H IMAN Administration Moxifloxacin HCl 400 mg in 250 mls @ 167 mls/hr 04/12/17 21:00 04/12/17 21:00 Avelox Iv 400mg/250ml Ns IVPB 167 mls/hr Q24H IMAN Administration Potassium Chloride 20 meq in 100 mls @ 50 mls/hr 04/13/17 10:00 04/13/17 13: 41 Potassium Chloride 20 Meq/100 Ml IVPB 04/13/17 23:59 50 mls/hr Q4H IMAN Administration Pantoprazole Sodium 40 mg 04/06/17 10:00 04/13/17 09:11 Protonix Ec Tab PO 40 mg DAILY IMAN Administration - Patient Studies Lab Studies: Lab Studies 04/13/17 04/13/17 04/13/17 Range/Units 06:20 06:18 06:18 WBC 15.0 H D (4.8-10.8) K/uL RBC 2.73 L (3.80-5.20) Mil/uL Hgb 8.0 L D (11.0-16.0) g/dL Hct 23.8 L (34.0-47.0) % MCV 87.3 (81.0-99.0) fL MCH 29.2 (27.0-31.0) pg MCHC 33.5 (33.0-37.0) g/dL RDW 17.6 H (11.5-14.5) % Plt Count 27 L* D (130-400) K/uL MPV 9.7 (7.2-11.7) fL Neut % (Auto) 94.7 H (50.0-75.0) % Lymph % (Auto) 1.1 L (20.0-40.0) % [place] % (Auto) 3.7 (0.0-10.0) % Eos % (Auto) 0.1 (0.0-4.0) % Baso % (Auto) 0.4 (0.0-2.0) % Neut # 14.2 H (1.8-7.0) K/uL Lymph # 0.2 L (1.0-4.3) K/uL [place] # 0.6 (0.0-0.8) K/uL Eos # 0.0 (0.0-0.7) K/uL Baso # 0.1 (0.0-0.2) K/uL Neutrophils % (Manual) 97 H (50-75) % Lymphocytes % (Manual) 1 L (20-40) % Monocytes % (Manual) 2 (0-10) % Platelet Estimate Markedly decreased L (NORMAL) Hypochromasia (manual) Slight Poikilocytosis (manual Slight Anisocytosis (manual) Slight Target Cells Slight ESR 33 H (0-20) mm/hr Fibrinogen 190 L (200-400) mg/dL Puncture Site pCO2 (35-45) mm/Hg pO2 (80-100) mm/Hg HCO3 (21-28) mmol/L ABG pH (7.35-7.45) ABG Total CO2 (22-28) mmol/L ABG O2 Saturation (95-98) % ABG Base Excess (-2.0-3.0) mmol/L ABG Hemoglobin (11.7-17.4) g/dL ABG Carboxyhemoglobin (0.5-1.5) % POC ABG HHb (Measured) (0.0-5.0) % ABG Methemoglobin (0.0-3.0) % Daljit Test A-a O2 Difference mm/Hg Respiratory Index Hgb O2 Saturation (95.0-98.0) % Vent Mode FiO2 % Inspiratory BiPAP Expiratory BiPAP Sodium 142 (132-148) mmol/L Potassium 3.2 L (3.6-5.2) mmol/L Chloride 101 (98-107) mmol/L Carbon Dioxide 39 H (22-30) mmol/L Anion Gap 5 L (10-20) BUN 32 H (7-17) mg/dL Creatinine 0.3 L (0.7-1.2) mg/dL Est GFR ( Amer) > 60 Est GFR (Non-Af Amer) > 60 Random Glucose 120 H (65-105) mg/dL Calcium 8.9 (8.6-10.4) mg/dl Phosphorus 2.3 L (2.5-4.5) mg/dL Magnesium 1.7 (1.6-2.3) mg/dL Total Bilirubin 3.6 H (0.2-1.3) mg/dL AST 85 H D (14-36) U/L ALT 113 H (9-52) U/L Alkaline Phosphatase 277 H (38-126) U/L Total Protein 5.5 L (6.3-8.3) g/dL Albumin 2.4 L (3.5-5.0) g/dL Globulin 3.1 (2.2-3.9) gm/dL Albumin/Globulin Ratio 0.8 L (1.0-2.1) Blood Type Antibody Screen 04/13/17 04/12/17 Range/Units 05:28 08:04 WBC (4.8-10.8) K/uL RBC (3.80-5.20) Mil/uL Hgb (11.0-16.0) g/dL Hct (34.0-47.0) % MCV (81.0-99.0) fL MCH (27.0-31.0) pg MCHC (33.0-37.0) g/dL RDW (11.5-14.5) % Plt Count (130-400) K/uL MPV (7.2-11.7) fL Neut % (Auto) (50.0-75.0) % Lymph % (Auto) (20.0-40.0) % [place] % (Auto) (0.0-10.0) % Eos % (Auto) (0.0-4.0) % Baso % (Auto) (0.0-2.0) % Neut # (1.8-7.0) K/uL Lymph # (1.0-4.3) K/uL [place] # (0.0-0.8) K/uL Eos # (0.0-0.7) K/uL Baso # (0.0-0.2) K/uL Neutrophils % (Manual) (50-75) % Lymphocytes % (Manual) (20-40) % Monocytes % (Manual) (0-10) % Platelet Estimate (NORMAL) Hypochromasia (manual) Poikilocytosis (manual Anisocytosis (manual) Target Cells ESR (0-20) mm/hr Fibrinogen (200-400) mg/dL Puncture Site Rr pCO2 54 H (35-45) mm/Hg pO2 65 L (80-100) mm/Hg HCO3 36.6 H (21-28) mmol/L ABG pH 7.48 H (7.35-7.45) ABG Total CO2 41.9 H (22-28) mmol/L ABG O2 Saturation 97.8 (95-98) % ABG Base Excess 15.0 H (-2.0-3.0) mmol/L ABG Hemoglobin 7.9 L (11.7-17.4) g/dL ABG Carboxyhemoglobin 3.4 H (0.5-1.5) % POC ABG HHb (Measured) 2.1 (0.0-5.0) % ABG Methemoglobin 0.9 (0.0-3.0) % Daljit Test Pos A-a O2 Difference 581.0 mm/Hg Respiratory Index 8.9 Hgb O2 Saturation 93.6 L (95.0-98.0) % Vent Mode Bipap FiO2 100.0 % Inspiratory BiPAP 16 Expiratory BiPAP 8 Sodium (132-148) mmol/L Potassium (3.6-5.2) mmol/L Chloride (98-107) mmol/L Carbon Dioxide (22-30) mmol/L Anion Gap (10-20) BUN (7-17) mg/dL Creatinine (0.7-1.2) mg/dL Est GFR ( Amer) Est GFR (Non-Af Amer) Random Glucose (65-105) mg/dL Calcium (8.6-10.4) mg/dl Phosphorus (2.5-4.5) mg/dL Magnesium (1.6-2.3) mg/dL Total Bilirubin (0.2-1.3) mg/dL AST (14-36) U/L ALT (9-52) U/L Alkaline Phosphatase (38-126) U/L Total Protein (6.3-8.3) g/dL Albumin (3.5-5.0) g/dL Globulin (2.2-3.9) gm/dL Albumin/Globulin Ratio (1.0-2.1) Blood Type O POSITIVE Antibody Screen Negative Laboratory Results - last 24 hr 04/12/17 04/13/17 04/13/17 08:04 05:28 06:18 WBC RBC Hgb Hct MCV MCH MCHC RDW Plt Count MPV Neut % (Auto) Lymph % (Auto) [place] % (Auto) Eos % (Auto) Baso % (Auto) Neut # Lymph # [place] # Eos # Baso # Neutrophils % (Manual) Lymphocytes % (Manual) Monocytes % (Manual) Platelet Estimate Hypochromasia (manual) Poikilocytosis (manual Anisocytosis (manual) Target Cells ESR Fibrinogen 190 L Puncture Site Rr pCO2 54 H pO2 65 L HCO3 36.6 H ABG pH 7.48 H ABG Total CO2 41.9 H ABG O2 Saturation 97.8 ABG Base Excess 15.0 H ABG Hemoglobin 7.9 L ABG Carboxyhemoglobin 3.4 H POC ABG HHb (Measured) 2.1 ABG Methemoglobin 0.9 Daljit Test Pos A-a O2 Difference 581.0 Respiratory Index 8.9 Hgb O2 Saturation 93.6 L Vent Mode Bipap FiO2 100.0 Inspiratory BiPAP 16 Expiratory BiPAP 8 Sodium Potassium Chloride Carbon Dioxide Anion Gap BUN Creatinine Est GFR ( Amer) Est GFR (Non-Af Amer) Random Glucose Calcium Phosphorus Magnesium Total Bilirubin AST ALT Alkaline Phosphatase Total Protein Albumin Globulin Albumin/Globulin Ratio Blood Type O POSITIVE Antibody Screen Negative 04/13/17 04/13/17 06:18 06:20 WBC 15.0 H D RBC 2.73 L Hgb 8.0 L D Hct 23.8 L MCV 87.3 MCH 29.2 MCHC 33.5 RDW 17.6 H Plt Count 27 L* D MPV 9.7 Neut % (Auto) 94.7 H Lymph % (Auto) 1.1 L [place] % (Auto) 3.7 Eos % (Auto) 0.1 Baso % (Auto) 0.4 Neut # 14.2 H Lymph # 0.2 L [place] # 0.6 Eos # 0.0 Baso # 0.1 Neutrophils % (Manual) 97 H Lymphocytes % (Manual) 1 L Monocytes % (Manual) 2 Platelet Estimate Markedly decreased L Hypochromasia (manual) Slight Poikilocytosis (manual Slight Anisocytosis (manual) Slight Target Cells Slight ESR 33 H Fibrinogen Puncture Site pCO2 pO2 HCO3 ABG pH ABG Total CO2 ABG O2 Saturation ABG Base Excess ABG Hemoglobin ABG Carboxyhemoglobin POC ABG HHb (Measured) ABG Methemoglobin Daljit Test A-a O2 Difference Respiratory Index Hgb O2 Saturation Vent Mode FiO2 Inspiratory BiPAP Expiratory BiPAP Sodium 142 Potassium 3.2 L Chloride 101 Carbon Dioxide 39 H Anion Gap 5 L BUN 32 H Creatinine 0.3 L Est GFR ( Amer) > 60 Est GFR (Non-Af Amer) > 60 Random Glucose 120 H Calcium 8.9 Phosphorus 2.3 L Magnesium 1.7 Total Bilirubin 3.6 H AST 85 H D ALT 113 H Alkaline Phosphatase 277 H Total Protein 5.5 L Albumin 2.4 L Globulin 3.1 Albumin/Globulin Ratio 0.8 L Blood Type Antibody Screen Critical Care Progress Note - Nutrition Nutrition: Nutrition Category Date Time Status Regular Diet [DIET] Diets 04/06/17 Lunch Active Assessment/Plan (1) Acute respiratory failure Current Visit: Yes Status: Acute Comment: worsening bilateral infiltrate consistent with pulmonary edema Continue BiPAP IV Lasix Continue high-dose steroids Continue IV antibiotics hematology follow-up for thrombocytopenia Attending/Attestation - Attestation I have personally seen and examined this patient.: Yes I have fully participated in the care of the patient.: Yes I have reviewed all pertinent clinical information: Yes Notes (Text): 04/13/17 14:40 I have seen and examined the patient. Medical records, lab studies, and imaging were reviewed by me and a management plan was formulated on multidisciplinary rounds with resident Dr. Luz. I agree with their documented assessment and plan. Patient has agreed to cyclophosphamide treatment. Dr. Daley to initiate therapy. Diuresing patient to improve respiratory mechanics. Diuresis causing contraction alkalosis with compensatory CO2 retention, adding diamox to counter this side effect. Critical Care Time 35 minutes. Multi-disciplinary rounds were performed with house staff, nursing, speech therapy, respiratory therapy, pharmacy and nutrition with integrated input from the primary team/attending and other consulting services. The documented time is cumulative and includes review of patient data/exams/labs/chart review and examination of the patient on rounds and throughout the day; time is exclusive of any procedures or teaching time.
[2017-04-13] MEDS: Immune Globulin 50 MG/ML 600 ML IV SCH (14:26)
[2017-04-13] MEDS ORDERED: Propofol 10 mg/ml Inj (20 ML) ONE (15:22)
[2017-04-13] MEDS ORDERED: Etomidate 20 mg/10ml Inj IV ONE (15:25)
[2017-04-13] MEDS ORDERED: Propofol 10 mg/ml Inj (20 ML) IV ONE (15:25)
[2017-04-13] MEDS: Propofol 10 mg/ml 1,000 MG/100 ML VIAL IV PRN (15:51)
--- NOTE | 2017-04-13 16:02 | RAD ---
HISTORY: intubated COMPARISON: 04/13/2017 at 0943 hours FINDINGS: LUNGS: The previously referenced diffuse hazy opacities over both lungs compatible with coalescing interstitial pulmonary edema/ ARDS is renoted. This overall appearance is believe slightly increased in each mid lung zone -more air bronchograms are noted. Interstitial and alveolar pulmonary edema/ ARDS favored PLEURA: Bilateral pleural effusions similar. No pneumothorax. CARDIOVASCULAR: Normal. OSSEOUS STRUCTURES: No significant abnormalities. VISUALIZED UPPER ABDOMEN: Normal. OTHER FINDINGS: Interval insertion endotracheal tube tip approximately 1.4 cm from the bon IMPRESSION: Persistent and extensive bilateral diffuse pulmonary interstitial and airspace pulmonary edema/ ARDS suspect . Can comment areas of coalescing atelectasis infiltrates in each lung cannot be excluded. . The overall density in each mid lung zone appears slightly increased since the prior exam. Other areas are fairly similar. Bilateral small effusions -renoted Interval insertion endotracheal tube - tip for approximately 1.4 cm from bon
--- NOTE | 2017-04-13 18:13 | PCM.PROC ---
Procedures Attestation:: I certify that I have explained the specified Operation(s) or Procedure(s), risks, benefits and reasonable alternatives to the Patient and/or other person responsible. The opportunity was given to ask questions and all questions answered - Intubation Time Out Performed: No Sedative: Etomidate, Other (propofol) Mg Given: 20 Laryngoscope: Glidescope ET Tube Size: 7.5 ET Tube Uncuffed: No (cuffed) ET Tube Secured at Depth: 25 ET Tube Secured Locarion: Lips ET Tube Placement Confirmation: Visualized Passing Through Cords, Breath Sounds Equal Bilaterally, No Breath Sounds Over Epigastrum, Confirmation w/Capnometry Patient Tolerated Procedure: Well Procedure Immediate Complications: None
[2017-04-13 18:31] LABS: ARTERIAL BLOOD GAS HCO3 37.9 mmol/L (21-28); ARTERIAL BLOOD GAS HEMOGLOBIN 6.9 g/dL (11.7-17.4); ARTERIAL BLOOD GAS O2 SAT 96.7 % (95-98); ARTERIAL BLOOD GAS PCO2 61 mm/Hg (35-45); ARTERIAL BLOOD GAS PH 7.45 (7.35-7.45); ARTERIAL BLOOD GAS PO2 57 mm/Hg (80-100); ARTERIAL BLOOD GAS TCO2 44.3 mmol/L (22-28)
[2017-04-13] MEDS ORDERED: Micafungin 100 MG in Sodium Chloride 0.9% 100 ML IV SCH (19:00)
[2017-04-13] MEDS: Moxifloxacin IV 400mg/250ml NS 400 MG/250 ML BAG IVPB SCH (20:54)
[2017-04-14] MEDS: Albuterol-Ipratrop 3 mg / 0.5 (3 ml) UD INH SCH ×3 (01:24→13:53)
[2017-04-14 04:18] LABS: ABG ALLEN TEST POS; ARTERIAL BLOOD GAS HCO3 34.8 mmol/L (21-28); ARTERIAL BLOOD GAS HEMOGLOBIN 6.3 g/dL (11.7-17.4); ARTERIAL BLOOD GAS O2 SAT 99.9 % (95-98); ARTERIAL BLOOD GAS PCO2 36 mm/Hg (35-45); ARTERIAL BLOOD GAS PO2 119 mm/Hg (80-100); ARTERIAL BLOOD GAS TCO2 36.4 mmol/L (22-28)
[2017-04-14] MEDS: Acyclovir 500 MG in Sodium Chloride 0.9% 100 ML IV SCH ×2 (04:37→12:11)
--- NOTE | 2017-04-14 05:37 | CP.PCM.PN ---
Subjective - Date & Time of Evaluation Date of Evaluation: 04/14/17 Time of Evaluation: 05:35 - Subjective Subjective: Improved oxygenation spo2 96 on 70% fio2, td was 450, ph is 7.60, both resp and metabolic alkalosis, will reduce tidal volume to 400, fio2 65%, dc lasix continue diamox. Objective - Vital Signs/Intake and Output Vital Signs (last 24 hours): Temp Pulse Resp BP Pulse Ox 97.5 F L 97 H 27 H 112/72 95 04/14/17 04:00 04/14/17 04:37 04/14/17 04:37 04/14/17 04:49 04/14/17 04:37 Intake and Output: 04/13/17 04/14/17 18:59 06:59 Intake Total 1585.4 716.6 Output Total 1700 1980 Balance -114.6 -1263.4 - Medications Medications: Current Medications Acetaminophen (Tylenol 325mg Tab) 650 mg PO DAILY@1330 [facility] Last Admin: 04/13/17 13:41 Dose: 650 mg Acetazolamide (Diamox 500 Mg Inj) 500 mg IV BID [facility] Stop: 04/15/17 10:01 Last Admin: 04/13/17 17:16 Dose: 500 mg Albuterol/Ipratropium (Duoneb 3 Mg/0.5 Mg (3 Ml) Ud) 3 ml INH RQ6 [facility] Last Admin: 04/14/17 01:24 Dose: 3 ml Atovaquone (Mepron) 1,500 mg PO DAILY [facility] Last Admin: 04/13/17 09:11 Dose: 1,500 mg Diphenhydramine HCl (Benadryl) 50 mg IVP DAILY@1330 [facility] Last Admin: 04/13/17 12:30 Dose: 50 mg Emollient Ointment (Vaseline Oint) 5 gm TOP Q4 PRN PRN Reason: DRY SKIN Last Admin: 04/11/17 17:37 Dose: 5 gm Gabapentin (Neurontin) 400 mg PO BID [facility] Last Admin: 04/13/17 17:15 Dose: 400 mg Hydrocortisone Sodium Succinate (Solu-Cortef) 100 mg IV DAILY@1330 [facility] Last Admin: 04/13/17 13:41 Dose: 100 mg Immune Globulin (Octagam 5%) 600 mls @ 0 mls/hr IV DAILY@1400 [facility] PRN Reason: UD Stop: 04/16/17 14:01 Last Admin: 04/13/17 14:26 Dose: 50 mls/hr Micafungin Sodium 100 mg/ (Sodium Chloride) 100 mls @ 100 mls/hr IV Q24H [facility] Last Admin: 04/13/17 09:12 Dose: 100 mls/hr Acyclovir 500 mg/ Sodium (Chloride) 100 mls @ 100 mls/hr IV Q8H [facility] Last Admin: 04/14/17 04:37 Dose: 100 mls/hr Moxifloxacin HCl (Avelox Iv 400mg/250ml Ns) 400 mg in 250 mls @ 167 mls/hr IVPB Q24H [facility] Last Admin: 04/13/17 20:54 Dose: 167 mls/hr Propofol (Diprivan) 1,000 mg in 100 mls @ 2.598 mls/hr IV .Q24H PRN; Protocol; 5 MCG/KG/MIN PRN Reason: TITRATE PER MD ORDER Last Titration: 04/13/17 21:07 Dose: 10 mcg/kg/min, 5.195 mls/hr Pantoprazole Sodium (Protonix Ec Tab) 40 mg PO DAILY [facility] Last Admin: 04/13/17 09:11 Dose: 40 mg - Labs Labs: 04/13/17 06:18 04/13/17 06:20 PT 16.3 SECONDS (9.7-12.2) H 04/05/17 10:54 INR 1.4 04/05/17 10:54 APTT 32 SECONDS (21-34) 04/05/17 10:54
[2017-04-14] MEDS: Propofol 10 mg/ml 1,000 MG/100 ML VIAL IV PRN ×2 (06:34→12:36)
[2017-04-14 06:39] LABS: BASO % 0.1 % (0.0-2.0); HEMOGLOBIN 7.1 g/dL (11.0-16.0); LYMPH # 0.2 K/uL (1.0-4.3); MEAN CORPUSCULAR HEMOGLOBIN 29.5 pg (27.0-31.0); MEAN CORPUSCULAR HGB CONC 33.5 g/dL (33.0-37.0); MEAN PLATELET VOLUME 7.8 fL (7.2-11.7); MONO # 0.3 K/uL (0.0-0.8); MONO % 2.6 % (0.0-10.0); NEUT # 10.5 K/uL (1.8-7.0); NEUT % 95.3 % (50.0-75.0); NRBC % 0.1 % (0.0-2.0); RBC 2.42 Mil/uL (3.80-5.20); RED CELL DISTRIBUTION WIDTH 17.6 % (11.5-14.5)
[2017-04-14 06:50] LABS: ALBUMIN 2.1 g/dL (3.5-5.0); ALT/SGPT 108 U/L (9-52); AST/SGOT 73 U/L (14-36); BLOOD UREA NITROGEN 28 mg/dL (7-17); CALCIUM 8.5 mg/dl (8.6-10.4); GFR AFRICAN-AMERICAN > 60; GFR NON-AFRICAN AMERICAN > 60; MAGNESIUM 1.6 mg/dL (1.6-2.3)
[2017-04-14 06:51] LABS: ALB/GLOB RATIO 0.6 (1.0-2.1)
[2017-04-14 07:03] LABS: PLATELET COUNT 6 K/uL (130-400)
[2017-04-14 08:43] LABS: ANISOCYTOSIS SLIGHT; BANDS 1 % (0-2); HYPOCHROMIC SLIGHT; LYMPHOCYTE 2 % (20-40); MONOCYTE 2 % (0-10); NEUTROPHIL 95 % (50-75); PLATELET ESTIMATE MARKEDLY DECREASED (NORMAL); POIKILOCYTOSIS SLIGHT; TOTAL CELLS COUNTED 100
[2017-04-14 08:44] LABS: BURR CELLS SLIGHT; MICROCYTOSIS SLIGHT; TARGET CELLS SLIGHT; TEARDROP CELLS SLIGHT
--- NOTE | 2017-04-14 09:10 | RAD ---
HISTORY: intubated COMPARISON: 04/13/2017 FINDINGS: LUNGS: Diffuse bilateral pulmonary parenchymal opacity, somewhat improved compared to prior examination. Nonspecific. PLEURA: No significant pleural effusion identified, no pneumothorax apparent. CARDIOVASCULAR: Normal heart size. NG tube and ET tube are grossly unchanged. OSSEOUS STRUCTURES: No significant abnormalities. VISUALIZED UPPER ABDOMEN: Normal. OTHER FINDINGS: None. IMPRESSION: Diffuse bilateral pulmonary opacity mildly improved. Otherwise unremarkable.
[2017-04-14] MEDS: Atovaquone 750 mg/5 ml Susp UD PO SCH (09:23)
[2017-04-14] MEDS: Micafungin 100 MG in Sodium Chloride 0.9% 100 ML IV SCH (09:59)
--- NOTE | 2017-04-14 10:53 | CP.PCM.PN ---
Subjective - Date & Time of Evaluation Date of Evaluation: 04/14/17 Time of Evaluation: 09:00 - Subjective Subjective: Vented on IVIG for cyclophosphamide infusion today Objective - Vital Signs/Intake and Output Vital Signs (last 24 hours): Temp Pulse Resp BP Pulse Ox 98.0 F 110 H 28 H 122/83 97 04/14/17 08:00 04/14/17 08:00 04/14/17 08:00 04/14/17 07:49 04/14/17 08:00 Intake and Output: 04/14/17 04/14/17 06:59 18:59 Intake Total 964.3 318.4 Output Total 2060 80 Balance -1095.7 238.4 - Medications Medications: Current Medications Acetaminophen (Tylenol 325mg Tab) 650 mg PO DAILY@1330 [facility] Last Admin: 04/13/17 13:41 Dose: 650 mg Acetazolamide (Diamox 500 Mg Inj) 500 mg IV BID [facility] Stop: 04/15/17 10:01 Last Admin: 04/14/17 09:23 Dose: 500 mg Albuterol/Ipratropium (Duoneb 3 Mg/0.5 Mg (3 Ml) Ud) 3 ml INH RQ6 [facility] Last Admin: 04/14/17 07:48 Dose: 3 ml Atovaquone (Mepron) 1,500 mg PO DAILY [facility] Last Admin: 04/14/17 09:23 Dose: 1,500 mg Diphenhydramine HCl (Benadryl) 50 mg IVP DAILY@1330 [facility] Last Admin: 04/13/17 12:30 Dose: 50 mg Emollient Ointment (Vaseline Oint) 5 gm TOP Q4 PRN PRN Reason: DRY SKIN Last Admin: 04/11/17 17:37 Dose: 5 gm Famotidine (Pepcid) 20 mg PO BID [facility] Last Admin: 04/14/17 09:59 Dose: 20 mg Gabapentin (Neurontin) 400 mg PO BID [facility] Last Admin: 04/14/17 09:23 Dose: 400 mg Hydrocortisone Sodium Succinate (Solu-Cortef) 100 mg IV DAILY@1330 [facility] Last Admin: 04/13/17 13:41 Dose: 100 mg Immune Globulin (Octagam 5%) 600 mls @ 0 mls/hr IV DAILY@1400 [facility] PRN Reason: UD Stop: 04/16/17 14:01 Last Admin: 04/13/17 14:26 Dose: 50 mls/hr Micafungin Sodium 100 mg/ (Sodium Chloride) 100 mls @ 100 mls/hr IV Q24H [facility] Last Admin: 04/14/17 09:59 Dose: 100 mls/hr Acyclovir 500 mg/ Sodium (Chloride) 100 mls @ 100 mls/hr IV Q8H [facility] Last Admin: 04/14/17 04:37 Dose: 100 mls/hr Moxifloxacin HCl (Avelox Iv 400mg/250ml Ns) 400 mg in 250 mls @ 167 mls/hr IVPB Q24H [facility] Last Admin: 04/13/17 20:54 Dose: 167 mls/hr Propofol (Diprivan) 1,000 mg in 100 mls @ 2.598 mls/hr IV .Q24H PRN; Protocol; 5 MCG/KG/MIN PRN Reason: TITRATE PER MD ORDER Last Titration: 04/14/17 07:20 Dose: 30 mcg/kg/min, 15.586 mls/hr Potassium Chloride (Potassium Chloride 20 Meq/100 Ml) 20 meq in 100 mls @ 50 mls/hr IVPB Q2 [facility] Stop: 04/14/17 15:59 Last Admin: 04/14/17 10:00 Dose: 50 mls/hr - Labs Labs: 04/14/17 06:28 04/14/17 06:30 PT 16.3 SECONDS (9.7-12.2) H 04/05/17 10:54 INR 1.4 04/05/17 10:54 APTT 32 SECONDS (21-34) 04/05/17 10:54 - Head Exam Head Exam: ATRAUMATIC - Eye Exam Eye Exam: Normal appearance - ENT Exam ENT Exam: Mucous Membranes Dry - Respiratory Exam Respiratory Exam: NORMAL BREATHING PATTERN - Cardiovascular Exam Cardiovascular Exam: +S1, +S2 - GI/Abdominal Exam GI & Abdominal Exam: Normal Bowel Sounds Assessment and Plan (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
[2017-04-14] MEDS ORDERED: SODIUM CHLORIDE 0.9% IVPB ONE (12:00)
[2017-04-14] MEDS ORDERED: DEXAMETHASONE IVPB ONE (12:00)
[2017-04-14] MEDS ORDERED: ONDANSETRON IVPB ONE (12:00)
[2017-04-14] MEDS ORDERED: DiphenhydrAMINE 50 mg/ml Inj IVP ONE (12:00)
[2017-04-14] MEDS: DiphenhydrAMINE 50 mg/ml Inj IVP SCH (13:22)
[2017-04-14] MEDS ORDERED: Phenylephrine 30 MG in Sodium Chloride 0.9% 247 ML IV PRN (14:16)
[2017-04-14] MEDS ORDERED: Albumin Human 5% (12.5 gm/250 ml) IV ONE (14:30)
[2017-04-14 14:55] VITALS: TEMP 97
[2017-04-14 15:38] VITALS: O2SAT 80
[2017-04-14] MEDS ORDERED: Sodium Bicarbonate (8.4%) 50 Meq Syringe ONE (16:00)
[2017-04-14] MEDS ORDERED: CALCIUM CHLORIDE 100 MG/ML VIAL IV ONE (16:00)
[2017-04-14] MEDS ORDERED: Phenylephrine 10 mg/ml Inj ONE (16:00)
--- NOTE | 2017-04-14 17:11 | CP.CCUPN ---
<Thais Patel - Last Filed: 04/14/17 17:08> CCU Subjective - Physician Review Subjective (Free Text): 04/14/17 17:08 Patient seen and examined at bedside. No acute events over night. Pt intubated and sedated. ROS unattainable. CCU Objective - Vital Signs / Intake & Output Vital Signs (Last 4 hours): Vital Signs Temp Pulse Resp BP Pulse Ox 04/14/17 15:45 76 13 04/14/17 15:41 80 14 54/29 L 04/14/17 15:40 86 17 04/14/17 15:35 89 30 H 66/35 L 04/14/17 15:30 103 H 34 H 89/43 L 04/14/17 15:25 99 H 34 H 84/48 L 04/14/17 15:20 105 H 36 H 80/54 L 80 L 04/14/17 15:15 127 H 35 H 85/61 L 04/14/17 15:10 129 H 37 H 80 L 04/14/17 15:06 133 H 40 H 78/57 L 92 L 04/14/17 15:05 134 H 41 H 78/57 L 82 L 04/14/17 15:00 133 H 38 H 83 L 04/14/17 14:57 134 H 38 H 85/54 L 04/14/17 14:55 135 H 39 H 87 L 04/14/17 14:54 97.0 F L 134 H 38 H 79/49 L 04/14/17 14:50 130 H 42 H 79/49 L 04/14/17 14:48 128 H 41 H 93/52 L 93 L 04/14/17 14:45 131 H 42 H 97 04/14/17 14:44 135 H 41 H 69/35 L 98 04/14/17 14:40 123 H 36 H 96 04/14/17 14:37 131 H 38 H 55/33 L 100 04/14/17 14:35 129 H 40 H 62/31 L 04/14/17 14:33 134 H 39 H 65/34 L 04/14/17 14:32 135 H 39 H 58/33 L 99 04/14/17 14:30 135 H 38 H 98 04/14/17 14:25 134 H 28 H 98 04/14/17 14:20 132 H 33 H 74/44 L 96 01/05/18 14:15 68/46 L 04/14/17 14:05 130 H 25 H 74/51 L 84 L 04/14/17 14:00 138 H 37 H 94 L 04/14/17 13:58 127 H 14 86/55 L 93 L 04/14/17 13:50 126 H 22 83/50 L 88 L 04/14/17 13:46 97.6 F 128 H 32 H 83/50 L 04/14/17 13:20 131 H 37 H 99/60 L 92 L 04/14/17 13:16 97.8 F 132 H 28 H 99/60 L Intake and Output (Last 8hrs): Intake & Output 04/14/17 04/14/17 04/14/17 06:59 14:59 22:59 Intake Total 428.9 2279.0 420.8 Output Total 1300 380 20 Balance -871.1 1899.0 400.8 Weight 188 lb 9.6 oz Intake: IV 75 130 100 Intake, IV Amount 143.9 1082.0 320.8 Right Distal Port Femoral 650 250 Right Medial Port Femoral 43.9 182.0 70.8 Right Proximal Port 100 250 Femoral Oral 260 Tube Feeding 210 260 0 Blood Product 497 Apheresis Plts Acda Lr 300 Irr 2nd Unit [id number] Apheresis Plts Acda Lr 197 Irr 2nd Unit [id number] Other 50 Apheresis Plts Acda Lr 50 Irr 2nd Unit [id number] Output: Urine 1300 380 20 Urethral (Lewis) 1300 380 20 Other: # Bowel Movements 1 0 0 - Physical Exam Head: Positive for: Atraumatic, Normocephalic Pupils: Positive for: PERRL, Sluggish Conjunctiva: Positive for: Normal Mouth: Positive for: Other (ET Tube ) Pharnyx: Positive for: Other (ET Tube ) Neck: Negative for: JVD Respiratory/Chest: Positive for: Rales, Other (intubated ). Negative for: Wheezes, Rhonchi Cardiovascular: Positive for: Normal S1, S2, Tachycardic. Negative for: Bradycardic Abdomen: Negative for: Tenderness, Distention, Peritoneal Signs Upper Extremity: Positive for: Edema Lower Extremity: Positive for: Edema. Negative for: Tenderness Neurological: Negative for: GCS=15 Skin: Positive for: Warm, Dry. Negative for: Rashes - Medications Active Medications: Active Medications Generic Name Dose Route Start Last Admin Trade Name Freq PRN Reason Stop Dose Admin Acetaminophen 650 mg 04/12/17 13:30 04/14/17 13:23 Tylenol 325mg Tab PO 650 mg DAILY@1330 IMAN Administration Acetazolamide 500 mg 04/13/17 18:00 04/14/17 09:23 Diamox 500 Mg Inj IV 04/15/17 10:01 500 mg BID IMAN Administration Albuterol/Ipratropium 3 ml 04/01/17 14:00 04/14/17 13:53 Duoneb 3 Mg/0.5 Mg (3 Ml) Ud INH 3 ml RQ6 IMAN Administration Atovaquone 1,500 mg 04/06/17 10:00 04/14/17 09:23 Mepron PO 1,500 mg DAILY IMAN Administration Diphenhydramine HCl 50 mg 04/12/17 13:30 04/14/17 13:22 Benadryl IVP 50 mg DAILY@1330 IMAN Administration Emollient Ointment 5 gm 03/31/17 12:18 04/11/17 17:37 Vaseline Oint TOP 5 gm Q4 PRN Administration DRY SKIN Famotidine 20 mg 04/14/17 10:00 04/14/17 09:59 Pepcid PO 20 mg BID IMAN Administration Gabapentin 400 mg 03/23/17 10:00 04/14/17 09:23 Neurontin PO 400 mg BID IMAN Administration Hydrocortisone Sodium Succinate 100 mg 04/12/17 13:30 04/14/17 14:30 Solu-Cortef IV 100 mg DAILY@1330 IMAN Administration Immune Globulin 600 mls @ 0 mls/hr 04/12/17 14:00 04/13/17 14:26 Octagam 5% IV 04/16/17 14:01 50 mls/hr DAILY@1400 IMAN Administration UD Micafungin Sodium 100 mg/ 100 mls @ 100 mls/hr 04/13/17 10:00 04/14/17 09:59 Sodium Chloride IV 100 mls/hr Q24H IMAN Administration Acyclovir 500 mg/ Sodium 100 mls @ 100 mls/hr 04/12/17 20:00 04/14/17 12:11 Chloride IV 100 mls/hr Q8H IMAN Administration Moxifloxacin HCl 400 mg in 250 mls @ 167 mls/hr 04/12/17 21:00 04/13/17 20:54 Avelox Iv 400mg/250ml Ns IVPB 167 mls/hr Q24H IMAN Administration Propofol 1,000 mg in 100 mls @ 2.598 mls/hr 04/13/17 15:33 04/14/17 14:30 Diprivan IV 0 mcg/kg/min .Q24H PRN 0 mls/hr TITRATE PER MD ORDER Titration Protocol 5 MCG/KG/MIN Phenylephrine HCl 30 mg/ 250 mls @ 10 mls/hr 04/14/17 14:16 04/14/17 15:45 Sodium Chloride IV 60 mcg/min .Q24H PRN 30 mls/hr TITRATE PER MD ORDER Titration Protocol 20 MCG/MIN Norepinephrine Bitartrate 4 mg 254 mls @ 15.24 mls/hr 04/14/17 14:53 14:35 / Sodium Chloride IV 20 mcg/min .[id number] PRN 76.2 mls/hr TITRATE PER MD ORDER Administration Protocol 4 MCG/MIN - Patient Studies Lab Studies: Lab Studies 04/14/17 04/14/17 04/14/17 Range/Units 06:30 06:28 06:28 WBC 11.0 H (4.8-10.8) K/uL RBC 2.42 L (3.80-5.20) Mil/uL Hgb 7.1 L (11.0-16.0) g/dL Hct 21.3 L (34.0-47.0) % MCV 88.0 (81.0-99.0) fL MCH 29.5 (27.0-31.0) pg MCHC 33.5 (33.0-37.0) g/dL RDW 17.6 H (11.5-14.5) % Plt Count 6 L* D (130-400) K/uL MPV 7.8 (7.2-11.7) fL Neut % (Auto) 95.3 H (50.0-75.0) % Lymph % (Auto) 2.0 L (20.0-40.0) % [place] % (Auto) 2.6 (0.0-10.0) % Eos % (Auto) 0.0 (0.0-4.0) % Baso % (Auto) 0.1 (0.0-2.0) % Neut # 10.5 H (1.8-7.0) K/uL Lymph # 0.2 L (1.0-4.3) K/uL [place] # 0.3 (0.0-0.8) K/uL Eos # 0.0 (0.0-0.7) K/uL Baso # 0.0 (0.0-0.2) K/uL Neutrophils % (Manual) 95 H (50-75) % Band Neutrophils % 1 (0-2) % Lymphocytes % (Manual) 2 L (20-40) % Monocytes % (Manual) 2 (0-10) % Platelet Estimate Markedly decreased L (NORMAL) Hypochromasia (manual) Slight Poikilocytosis (manual Slight Anisocytosis (manual) Slight Microcytosis (manual) Slight Target Cells Slight Tear Drop Cells Slight Daya Cells Slight ESR 40 H (0-20) mm/hr Puncture Site pCO2 (35-45) mm/Hg pO2 (80-100) mm/Hg HCO3 (21-28) mmol/L ABG pH (7.35-7.45) ABG Total CO2 (22-28) mmol/L ABG O2 Saturation (95-98) % ABG Base Excess (-2.0-3.0) mmol/L ABG Hemoglobin (11.7-17.4) g/dL ABG Carboxyhemoglobin (0.5-1.5) % POC ABG HHb (Measured) (0.0-5.0) % ABG Methemoglobin (0.0-3.0) % Daljit Test A-a O2 Difference mm/Hg Respiratory Index Hgb O2 Saturation (95.0-98.0) % Vent Mode Mechanical Rate FiO2 % Tidal Volume PEEP Crit Value Called To Crit Value Called By Crit Value Read Back Blood Gas Notified Time Sodium 141 (132-148) mmol/L Potassium 2.9 L (3.6-5.2) mmol/L Chloride 99 (98-107) mmol/L Carbon Dioxide 39 H (22-30) mmol/L Anion Gap 6 L (10-20) BUN 28 H (7-17) mg/dL Creatinine 0.5 L (0.7-1.2) mg/dL Est GFR ( Amer) > 60 Est GFR (Non-Af Amer) > 60 Random Glucose 99 (65-105) mg/dL Calcium 8.5 L (8.6-10.4) mg/dl Phosphorus 2.7 (2.5-4.5) mg/dL Magnesium 1.6 (1.6-2.3) mg/dL Total Bilirubin 2.9 H (0.2-1.3) mg/dL AST 73 H (14-36) U/L ALT 108 H (9-52) U/L Alkaline Phosphatase 291 H (38-126) U/L Total Protein 5.3 L (6.3-8.3) g/dL Albumin 2.1 L (3.5-5.0) g/dL Globulin 3.2 (2.2-3.9) gm/dL Albumin/Globulin Ratio 0.6 L (1.0-2.1) 04/14/17 04/13/17 Range/Units 04:10 18:20 WBC (4.8-10.8) K/uL RBC (3.80-5.20) Mil/uL Hgb (11.0-16.0) g/dL Hct (34.0-47.0) % MCV (81.0-99.0) fL MCH (27.0-31.0) pg MCHC (33.0-37.0) g/dL RDW (11.5-14.5) % Plt Count (130-400) K/uL MPV (7.2-11.7) fL Neut % (Auto) (50.0-75.0) % Lymph % (Auto) (20.0-40.0) % [place] % (Auto) (0.0-10.0) % Eos % (Auto) (0.0-4.0) % Baso % (Auto) (0.0-2.0) % Neut # (1.8-7.0) K/uL Lymph # (1.0-4.3) K/uL [place] # (0.0-0.8) K/uL Eos # (0.0-0.7) K/uL Baso # (0.0-0.2) K/uL Neutrophils % (Manual) (50-75) % Band Neutrophils % (0-2) % Lymphocytes % (Manual) (20-40) % Monocytes % (Manual) (0-10) % Platelet Estimate (NORMAL) Hypochromasia (manual) Poikilocytosis (manual Anisocytosis (manual) Microcytosis (manual) Target Cells Tear Drop Cells [place] Cells ESR (0-20) mm/hr Puncture Site Rr L/b pCO2 36 61 H (35-45) mm/Hg pO2 119 H 57 L (80-100) mm/Hg HCO3 34.8 H 37.9 H (21-28) mmol/L ABG pH 7.60 H 7.45 (7.35-7.45) ABG Total CO2 36.4 H 44.3 H (22-28) mmol/L ABG O2 Saturation 99.9 H 96.7 (95-98) % ABG Base Excess 12.6 H 16.7 H (-2.0-3.0) mmol/L ABG Hemoglobin 6.3 L 6.9 L (11.7-17.4) g/dL ABG Carboxyhemoglobin 3.0 H 3.5 H (0.5-1.5) % POC ABG HHb (Measured) 0.1 3.2 (0.0-5.0) % ABG Methemoglobin 1.0 0.8 (0.0-3.0) % Daljit Test Pos Na A-a O2 Difference 478.0 473.0 mm/Hg Respiratory Index 4.0 8.3 Hgb O2 Saturation 96.0 92.5 L (95.0-98.0) % Vent Mode Prvc Mechanical Rate 14 14 FiO2 90.0 85.0 % Tidal Volume 450 450 PEEP 8 8 Crit Value Called To Thu hutchison/rn Dr wolff Crit Value Called By Jan patel/rt [place] [employer] representative Crit Value Read Back Y Y Blood Gas Notified Time 420 1830 Sodium (132-148) mmol/L Potassium (3.6-5.2) mmol/L Chloride (98-107) mmol/L Carbon Dioxide (22-30) mmol/L Anion Gap (10-20) BUN (7-17) mg/dL Creatinine (0.7-1.2) mg/dL Est GFR ( Amer) Est GFR (Non-Af Amer) Random Glucose (65-105) mg/dL Calcium (8.6-10.4) mg/dl Phosphorus (2.5-4.5) mg/dL Magnesium (1.6-2.3) mg/dL Total Bilirubin (0.2-1.3) mg/dL AST (14-36) U/L ALT (9-52) U/L Alkaline Phosphatase (38-126) U/L Total Protein (6.3-8.3) g/dL Albumin (3.5-5.0) g/dL Globulin (2.2-3.9) gm/dL Albumin/Globulin Ratio (1.0-2.1) Laboratory Results - last 24 hr 04/13/17 04/14/17 04/14/17 18:20 04:10 06:28 WBC RBC Hgb Hct MCV MCH MCHC RDW Plt Count MPV Neut % (Auto) Lymph % (Auto) [place] % (Auto) Eos % (Auto) Baso % (Auto) Neut # Lymph # [place] # Eos # Baso # Neutrophils % (Manual) Band Neutrophils % Lymphocytes % (Manual) Monocytes % (Manual) Platelet Estimate Hypochromasia (manual) Poikilocytosis (manual Anisocytosis (manual) Microcytosis (manual) Target Cells Tear Drop Cells [place] Cells ESR 40 H Puncture Site L/b Rr pCO2 61 H 36 pO2 57 L 119 H HCO3 37.9 H 34.8 H ABG pH 7.45 7.60 H ABG Total CO2 44.3 H 36.4 H ABG O2 Saturation 96.7 99.9 H ABG Base Excess 16.7 H 12.6 H ABG Hemoglobin 6.9 L 6.3 L ABG Carboxyhemoglobin 3.5 H 3.0 H POC ABG HHb (Measured) 3.2 0.1 ABG Methemoglobin 0.8 1.0 Daljit Test Na Pos A-a O2 Difference 473.0 478.0 Respiratory Index 8.3 4.0 Hgb O2 Saturation 92.5 L 96.0 Vent Mode Prvc Mechanical Rate 14 14 FiO2 85.0 90.0 Tidal Volume 450 450 PEEP 8 8 Crit Value Called To Dr misha hutchison/rn Crit Value Called By Albert patel/rt Crit Value Read Back Y Y Blood Gas Notified Time 1830 420 Sodium Potassium Chloride Carbon Dioxide Anion Gap BUN Creatinine Est GFR ( Amer) Est GFR (Non-Af Amer) Random Glucose Calcium Phosphorus Magnesium Total Bilirubin AST ALT Alkaline Phosphatase Total Protein Albumin Globulin Albumin/Globulin Ratio 04/14/17 04/14/17 06:28 06:30 WBC 11.0 H RBC 2.42 L Hgb 7.1 L Hct 21.3 L MCV 88.0 MCH 29.5 MCHC 33.5 RDW 17.6 H Plt Count 6 L* D MPV 7.8 Neut % (Auto) 95.3 H Lymph % (Auto) 2.0 L [place] % (Auto) 2.6 Eos % (Auto) 0.0 Baso % (Auto) 0.1 Neut # 10.5 H Lymph # 0.2 L [place] # 0.3 Eos # 0.0 Baso # 0.0 Neutrophils % (Manual) 95 H Band Neutrophils % 1 Lymphocytes % (Manual) 2 L Monocytes % (Manual) 2 Platelet Estimate Markedly decreased L Hypochromasia (manual) Slight Poikilocytosis (manual Slight Anisocytosis (manual) Slight Microcytosis (manual) Slight Target Cells Slight Tear Drop Cells Slight Daya Cells Slight ESR Puncture Site pCO2 pO2 HCO3 ABG pH ABG Total CO2 ABG O2 Saturation ABG Base Excess ABG Hemoglobin ABG Carboxyhemoglobin POC ABG HHb (Measured) ABG Methemoglobin Daljit Test A-a O2 Difference Respiratory Index Hgb O2 Saturation Vent Mode Mechanical Rate FiO2 Tidal Volume PEEP Crit Value Called To Crit Value Called By Crit Value Read Back Blood Gas Notified Time Sodium 141 Potassium 2.9 L Chloride 99 Carbon Dioxide 39 H Anion Gap 6 L BUN 28 H Creatinine 0.5 L Est GFR ( Amer) > 60 Est GFR (Non-Af Amer) > 60 Random Glucose 99 Calcium 8.5 L Phosphorus 2.7 Magnesium 1.6 Total Bilirubin 2.9 H AST 73 H ALT 108 H Alkaline Phosphatase 291 H Total Protein 5.3 L Albumin 2.1 L Globulin 3.2 Albumin/Globulin Ratio 0.6 L Fingerstick Blood Sugar Results: 169 Review of Systems - Review of Systems Systems not reviewed;Unavailable: Intubated Assessment/Plan - Assessment and Plan (Free Text) Assessment: 61F with lupus pneumonitis and acute hypoxemic respiratory failure, respiratory acidosis from acute pulmonary edema, bilateral pneumonia, and severe sepsis Plan: Neuro * intubated and sedated on propofol drip * Neurology consulted (Steve) - recs appreciated * Needs visual field exam per Dr. Puckett * Gabapentin 400 mg PO BID Cardio * Tachycardic * BP stable * 03/29: Troponin + (0.2650, 0.1570) * 03/29: Heparin drip discontinued * Plavix 75 mg PO QD (d/c 04/03) * 04/06 discontinued Crestor 20 mg PO HS * Levophed drip to maintain BP * Phenylephrine drip to maintain BP * Echo: grade 1 relaxation pattern and mild pulmonary hypertension * EKG: T Wave abnormality * 03/29: BNP 86876 * UE and LE US - negative for DVT Respiratory - lupus pnuemonitis * 03/31/17 Intubated * 04/05/17 Extubated * 04/13/17: reintubated * ABG (04/12/17): 7.46/59/162/36.8 * Daily CXRs * 03/29/17 CTA: b/l interstitial/alveolar infiltrate with superimposed multifocal eder consolidation, dilated main pulmonary artery * Solu-medrol 100 mg IV QD * Duonebs Q6 * Hold Lasix 40 mg IV Q12h Renal * Balance -1210.3 * BUN/Cr 28/0.5 * Hold Lasix 40 mg IV Q12h Fluids, electrolytes, nutrition * Electrolytes WNL except for those mentioned below * Potassium: 2.9 - replaced, will monitor * Bicarb: 39 * Ma.6 Infectious disease * afebrile * WBC 11.0 * ID consulted (Cici) - recs appreciated * Sputum culture - no growth * Fluconazole 200 mg QD * Mepron 1500 mg PO ACL - for PJP prophylaxis * Aztreonam 1g IV Q8 * Discontinued: * 1g vanc Q12 resumed 04/07 (vanc trough <5) * Doxy 100 IV Q12 * Flagyl 500 mg Q8 (end 04/03) * Tamiflu (end 04/04) * Linezolid 600 mg Q12h (began 04/09, end 04/12/17) Hematology - Anemia, thrombocytopenia * H&H: 7.1/21.3 * Plt: 6 - transfused 2U plts * 04/05: PT/PTT/INR - 16.3/32/1.4; fibrinogen - 331 * 04/05: transfused 1U of platelets * Plavix 75 mg PO QD (d/c 04/03) * Heparin drip discontinued * Heme/Onc consulted (Thuy) - recs appreciated * 04/04: Bone marrow biopsy - f/u results * 03/20: Folate >20, B12 >1000 GI - transaminitis * AST/ALT: elevated - possibly med side effect * Tbili: 2.9 * Zofran PRN Endocrine * monitor blood glucose * 03/24: HbA1c 4.7 * 03/20: AM Cortisol: 27.7, TSH: 1.65, Free T4: 2.22 Integumentary * A&D ointment * Vaseline Rheumatology - History of Lupus and RA * Hydroxychloroquine 200 mg PO QD * IV Ig 30g QD x5 days per Dr. Daley (start date: 04/12/17) * Cytoxan per Dr. Daley * Dr. Puckett consulted - recs appreciated * Daily ESR: * 04/01 55 * 04/03 55 * 04/04 18 * 04/05 20 * 04/06 23 * 04/07 32 * 04/08 34 * 04/09 30 * 04/10 30 Prophylaxis * Protonix 40 mg PO QD <Adonay Wolff - Last Filed: 04/14/17 17:38> CCU Objective - Vital Signs / Intake & Output Vital Signs (Last 4 hours): Vital Signs Temp Pulse Resp BP Pulse Ox 04/14/17 15:57 69 14 49/34 L 04/14/17 15:55 66 13 04/14/17 15:45 76 13 04/14/17 15:41 80 14 54/29 L 04/14/17 15:40 86 17 04/14/17 15:35 89 30 H 66/35 L 04/14/17 15:30 103 H 34 H 89/43 L 04/14/17 15:25 99 H 34 H 84/48 L 04/14/17 15:20 105 H 36 H 80/54 L 80 L 04/14/17 15:15 127 H 35 H 85/61 L 04/14/17 15:10 129 H 37 H 80 L 04/14/17 15:06 133 H 40 H 78/57 L 92 L 04/14/17 15:05 134 H 41 H 78/57 L 82 L 04/14/17 15:00 133 H 38 H 83 L 04/14/17 14:57 134 H 38 H 85/54 L 04/14/17 14:55 135 H 39 H 87 L 04/14/17 14:54 97.0 F L 134 H 38 H 79/49 L 04/14/17 14:50 130 H 42 H 79/49 L 04/14/17 14:48 128 H 41 H 93/52 L 93 L 04/14/17 14:45 131 H 42 H 97 04/14/17 14:44 135 H 41 H 69/35 L 98 04/14/17 14:40 123 H 36 H 96 04/14/17 14:37 131 H 38 H 55/33 L 100 04/14/17 14:35 129 H 40 H 62/31 L 04/14/17 14:33 134 H 39 H 65/34 L 04/14/17 14:32 135 H 39 H 58/33 L 99 04/14/17 14:30 135 H 38 H 98 04/14/17 14:25 134 H 28 H 98 04/14/17 14:20 132 H 33 H 74/44 L 96 04/14/17 14:15 68/46 L 04/14/17 14:05 130 H 25 H 74/51 L 84 L 04/14/17 14:00 138 H 37 H 94 L 04/14/17 13:58 127 H 14 86/55 L 93 L 04/14/17 13:50 126 H 22 83/50 L 88 L 04/14/17 13:46 97.6 F 128 H 32 H 83/50 L Intake and Output (Last 8hrs): Intake & Output 04/14/17 04/14/17 04/14/17 06:59 14:59 22:59 Intake Total 428.9 2279.0 420.8 Output Total 1300 380 20 Balance -871.1 1899.0 400.8 Weight 188 lb 9.6 oz Intake: IV 75 130 100 Intake, IV Amount 143.9 1082.0 320.8 Right Distal Port Femoral 650 250 Right Medial Port Femoral 43.9 182.0 70.8 Right Proximal Port 100 250 Femoral Oral 260 Tube Feeding 210 260 0 Blood Product 497 Apheresis Plts Acda Lr 300 Irr 2nd Unit [id number] Apheresis Plts Acda Lr 197 Irr 2nd Unit [id number] Other 50 Apheresis Plts Acda Lr 50 Irr 2nd Unit [id number] Output: Urine 1300 380 20 Urethral (Lewis) 1300 380 20 Other: # Bowel Movements 1 0 0 - Medications Active Medications: Active Medications Generic Name Dose Route Start Last Admin Trade Name Freq PRN Reason Stop Dose Admin Acetaminophen 650 mg 04/12/17 13:30 04/14/17 13:23 Tylenol 325mg Tab PO 650 mg DAILY@1330 IMAN Administration Acetazolamide 500 mg 04/13/17 18:00 04/14/17 09:23 Diamox 500 Mg Inj IV 04/15/17 10:01 500 mg BID IMAN Administration Albuterol/Ipratropium 3 ml 04/01/17 14:00 04/14/17 13:53 Duoneb 3 Mg/0.5 Mg (3 Ml) Ud INH 3 ml RQ6 IMAN Administration Atovaquone 1,500 mg 04/06/17 10:00 04/14/17 09:23 Mepron PO 1,500 mg DAILY IMAN Administration Diphenhydramine HCl 50 mg 04/12/17 13:30 04/14/17 13:22 Benadryl IVP 50 mg DAILY@1330 IMAN Administration Emollient Ointment 5 gm 03/31/17 12:18 04/11/17 17:37 Vaseline Oint TOP 5 gm Q4 PRN Administration DRY SKIN Famotidine 20 mg 04/14/17 10:00 04/14/17 09:59 Pepcid PO 20 mg BID IMAN Administration Gabapentin 400 mg 03/23/17 10:00 04/14/17 09:23 Neurontin PO 400 mg BID IMAN Administration Hydrocortisone Sodium Succinate 100 mg 04/12/17 13:30 04/14/17 14:30 Solu-Cortef IV 100 mg DAILY@1330 IMAN Administration Immune Globulin 600 mls @ 0 mls/hr 04/12/17 14:00 04/13/17 14:26 Octagam 5% IV 04/16/17 14:01 50 mls/hr DAILY@1400 IMAN Administration UD Micafungin Sodium 100 mg/ 100 mls @ 100 mls/hr 04/13/17 10:00 04/14/17 09:59 Sodium Chloride IV 100 mls/hr Q24H IMAN Administration Acyclovir 500 mg/ Sodium 100 mls @ 100 mls/hr 04/12/17 20:00 04/14/17 12:11 Chloride IV 100 mls/hr Q8H IMAN Administration Moxifloxacin HCl 400 mg in 250 mls @ 167 mls/hr 04/12/17 21:00 04/13/17 20:54 Avelox Iv 400mg/250ml Ns IVPB 167 mls/hr Q24H IMAN Administration Propofol 1,000 mg in 100 mls @ 2.598 mls/hr 04/13/17 15:33 04/14/17 14:30 Diprivan IV 0 mcg/kg/min .Q24H PRN 0 mls/hr TITRATE PER MD ORDER Titration Protocol 5 MCG/KG/MIN Phenylephrine HCl 30 mg/ 250 mls @ 10 mls/hr 04/14/17 14:16 04/14/17 15:45 Sodium Chloride IV 60 mcg/min .Q24H PRN 30 mls/hr TITRATE PER MD ORDER Titration Protocol 20 MCG/MIN Norepinephrine Bitartrate 4 mg 254 mls @ 15.24 mls/hr 04/14/17 14:53 14:35 / Sodium Chloride IV 20 mcg/min .[id number] PRN 76.2 mls/hr TITRATE PER MD ORDER Administration Protocol 4 MCG/MIN - Patient Studies Lab Studies: Lab Studies 04/14/17 04/14/17 04/14/17 Range/Units 06:30 06:28 06:28 WBC 11.0 H (4.8-10.8) K/uL RBC 2.42 L (3.80-5.20) Mil/uL Hgb 7.1 L (11.0-16.0) g/dL Hct 21.3 L (34.0-47.0) % MCV 88.0 (81.0-99.0) fL MCH 29.5 (27.0-31.0) pg MCHC 33.5 (33.0-37.0) g/dL RDW 17.6 H (11.5-14.5) % Plt Count 6 L* D (130-400) K/uL MPV 7.8 (7.2-11.7) fL Neut % (Auto) 95.3 H (50.0-75.0) % Lymph % (Auto) 2.0 L (20.0-40.0) % [place] % (Auto) 2.6 (0.0-10.0) % Eos % (Auto) 0.0 (0.0-4.0) % Baso % (Auto) 0.1 (0.0-2.0) % Neut # 10.5 H (1.8-7.0) K/uL Lymph # 0.2 L (1.0-4.3) K/uL [place] # 0.3 (0.0-0.8) K/uL Eos # 0.0 (0.0-0.7) K/uL Baso # 0.0 (0.0-0.2) K/uL Neutrophils % (Manual) 95 H (50-75) % Band Neutrophils % 1 (0-2) % Lymphocytes % (Manual) 2 L (20-40) % Monocytes % (Manual) 2 (0-10) % Platelet Estimate Markedly decreased L (NORMAL) Hypochromasia (manual) Slight Poikilocytosis (manual Slight Anisocytosis (manual) Slight Microcytosis (manual) Slight Target Cells Slight Tear Drop Cells Slight [place] Cells Slight ESR 40 H (0-20) mm/hr Puncture Site pCO2 (35-45) mm/Hg pO2 (80-100) mm/Hg HCO3 (21-28) mmol/L ABG pH (7.35-7.45) ABG Total CO2 (22-28) mmol/L ABG O2 Saturation (95-98) % ABG Base Excess (-2.0-3.0) mmol/L ABG Hemoglobin (11.7-17.4) g/dL ABG Carboxyhemoglobin (0.5-1.5) % POC ABG HHb (Measured) (0.0-5.0) % ABG Methemoglobin (0.0-3.0) % Daljit Test A-a O2 Difference mm/Hg Respiratory Index Hgb O2 Saturation (95.0-98.0) % Vent Mode Mechanical Rate FiO2 % Tidal Volume PEEP Crit Value Called To Crit Value Called By Crit Value Read Back Blood Gas Notified Time Sodium 141 (132-148) mmol/L Potassium 2.9 L (3.6-5.2) mmol/L Chloride 99 (98-107) mmol/L Carbon Dioxide 39 H (22-30) mmol/L Anion Gap 6 L (10-20) BUN 28 H (7-17) mg/dL Creatinine 0.5 L (0.7-1.2) mg/dL Est GFR ( Amer) > 60 Est GFR (Non-Af Amer) > 60 Random Glucose 99 (65-105) mg/dL Calcium 8.5 L (8.6-10.4) mg/dl Phosphorus 2.7 (2.5-4.5) mg/dL Magnesium 1.6 (1.6-2.3) mg/dL Total Bilirubin 2.9 H (0.2-1.3) mg/dL AST 73 H (14-36) U/L ALT 108 H (9-52) U/L Alkaline Phosphatase 291 H (38-126) U/L Total Protein 5.3 L (6.3-8.3) g/dL Albumin 2.1 L (3.5-5.0) g/dL Globulin 3.2 (2.2-3.9) gm/dL Albumin/Globulin Ratio 0.6 L (1.0-2.1) 04/14/17 04/13/17 Range/Units 04:10 18:20 WBC (4.8-10.8) K/uL RBC (3.80-5.20) Mil/uL Hgb (11.0-16.0) g/dL Hct (34.0-47.0) % MCV (81.0-99.0) fL MCH (27.0-31.0) pg MCHC (33.0-37.0) g/dL RDW (11.5-14.5) % Plt Count (130-400) K/uL MPV (7.2-11.7) fL Neut % (Auto) (50.0-75.0) % Lymph % (Auto) (20.0-40.0) % [place] % (Auto) (0.0-10.0) % Eos % (Auto) (0.0-4.0) % Baso % (Auto) (0.0-2.0) % Neut # (1.8-7.0) K/uL Lymph # (1.0-4.3) K/uL [place] # (0.0-0.8) K/uL Eos # (0.0-0.7) K/uL Baso # (0.0-0.2) K/uL Neutrophils % (Manual) (50-75) % Band Neutrophils % (0-2) % Lymphocytes % (Manual) (20-40) % Monocytes % (Manual) (0-10) % Platelet Estimate (NORMAL) Hypochromasia (manual) Poikilocytosis (manual Anisocytosis (manual) Microcytosis (manual) Target Cells Tear Drop Cells [place]yn[place]all Cells ESR (0-20) mm/hr Puncture Site Rr L/b pCO2 36 61 H (35-45) mm/Hg pO2 119 H 57 L (80-100) mm/Hg HCO3 34.8 H 37.9 H (21-28) mmol/L ABG pH 7.60 H 7.45 (7.35-7.45) ABG Total CO2 36.4 H 44.3 H (22-28) mmol/L ABG O2 Saturation 99.9 H 96.7 (95-98) % ABG Base Excess 12.6 H 16.7 H (-2.0-3.0) mmol/L ABG Hemoglobin 6.3 L 6.9 L (11.7-17.4) g/dL ABG Carboxyhemoglobin 3.0 H 3.5 H (0.5-1.5) % POC ABG HHb (Measured) 0.1 3.2 (0.0-5.0) % ABG Methemoglobin 1.0 0.8 (0.0-3.0) % Daljit Test Pos Na A-a O2 Difference 478.0 473.0 mm/Hg Respiratory Index 4.0 8.3 Hgb O2 Saturation 96.0 92.5 L (95.0-98.0) % Vent Mode Prvc Mechanical Rate 14 14 FiO2 90.0 85.0 % Tidal Volume 450 450 PEEP 8 8 Crit Value Called To Thu hutchison/rn Dr wolff Crit Value Called By Jan patel/rt [place] [facility] representative Crit Value Read Back Y Y Blood Gas Notified Time 420 1830 Sodium (132-148) mmol/L Potassium (3.6-5.2) mmol/L Chloride (98-107) mmol/L Carbon Dioxide (22-30) mmol/L Anion Gap (10-20) BUN (7-17) mg/dL Creatinine (0.7-1.2) mg/dL Est GFR ( Amer) Est GFR (Non-Af Amer) Random Glucose (65-105) mg/dL Calcium (8.6-10.4) mg/dl Phosphorus (2.5-4.5) mg/dL Magnesium (1.6-2.3) mg/dL Total Bilirubin (0.2-1.3) mg/dL AST (14-36) U/L ALT (9-52) U/L Alkaline Phosphatase (38-126) U/L Total Protein (6.3-8.3) g/dL Albumin (3.5-5.0) g/dL Globulin (2.2-3.9) gm/dL Albumin/Globulin Ratio (1.0-2.1) Laboratory Results - last 24 hr 04/13/17 04/14/17 04/14/17 18:20 04:10 06:28 WBC RBC Hgb Hct MCV MCH MCHC RDW Plt Count MPV Neut % (Auto) Lymph % (Auto) [place] % (Auto) Eos % (Auto) Baso % (Auto) Neut # Lymph # [place] # Eos # Baso # Neutrophils % (Manual) Band Neutrophils % Lymphocytes % (Manual) Monocytes % (Manual) Platelet Estimate Hypochromasia (manual) Poikilocytosis (manual Anisocytosis (manual) Microcytosis (manual) Target Cells Tear Drop Cells [place] Cells ESR 40 H Puncture Site L/b Rr pCO2 61 H 36 pO2 57 L 119 H HCO3 37.9 H 34.8 H ABG pH 7.45 7.60 H ABG Total CO2 44.3 H 36.4 H ABG O2 Saturation 96.7 99.9 H ABG Base Excess 16.7 H 12.6 H ABG Hemoglobin 6.9 L 6.3 L ABG Carboxyhemoglobin 3.5 H 3.0 H POC ABG HHb (Measured) 3.2 0.1 ABG Methemoglobin 0.8 1.0 Daljit Test Na Pos A-a O2 Difference 473.0 478.0 Respiratory Index 8.3 4.0 Hgb O2 Saturation 92.5 L 96.0 Vent Mode Prvc Mechanical Rate 14 14 FiO2 85.0 90.0 Tidal Volume 450 450 PEEP 8 8 Crit Value Called To Dr misha hutchison/rn Crit Value Called By Albert patel/rt Crit Value Read Back Y Y Blood Gas Notified Time 1830 420 Sodium Potassium Chloride Carbon Dioxide Anion Gap BUN Creatinine Est GFR ( Amer) Est GFR (Non-Af Amer) Random Glucose Calcium Phosphorus Magnesium Total Bilirubin AST ALT Alkaline Phosphatase Total Protein Albumin Globulin Albumin/Globulin Ratio 04/14/17 04/14/17 06:28 06:30 WBC 11.0 H RBC 2.42 L Hgb 7.1 L Hct 21.3 L MCV 88.0 MCH 29.5 MCHC 33.5 RDW 17.6 H Plt Count 6 L* D MPV 7.8 Neut % (Auto) 95.3 H Lymph % (Auto) 2.0 L [place] % (Auto) 2.6 Eos % (Auto) 0.0 Baso % (Auto) 0.1 Neut # 10.5 H Lymph # 0.2 L [place] # 0.3 Eos # 0.0 Baso # 0.0 Neutrophils % (Manual) 95 H Band Neutrophils % 1 Lymphocytes % (Manual) 2 L Monocytes % (Manual) 2 Platelet Estimate Markedly decreased L Hypochromasia (manual) Slight Poikilocytosis (manual Slight Anisocytosis (manual) Slight Microcytosis (manual) Slight Target Cells Slight Tear Drop Cells Slight Daya Cells Slight ESR Puncture Site pCO2 pO2 HCO3 ABG pH ABG Total CO2 ABG O2 Saturation ABG Base Excess ABG Hemoglobin ABG Carboxyhemoglobin POC ABG HHb (Measured) ABG Methemoglobin Daljit Test A-a O2 Difference Respiratory Index Hgb O2 Saturation Vent Mode Mechanical Rate FiO2 Tidal Volume PEEP Crit Value Called To Crit Value Called By Crit Value Read Back Blood Gas Notified Time Sodium 141 Potassium 2.9 L Chloride 99 Carbon Dioxide 39 H Anion Gap 6 L BUN 28 H Creatinine 0.5 L Est GFR ( Amer) > 60 Est GFR (Non-Af Amer) > 60 Random Glucose 99 Calcium 8.5 L Phosphorus 2.7 Magnesium 1.6 Total Bilirubin 2.9 H AST 73 H ALT 108 H Alkaline Phosphatase 291 H Total Protein 5.3 L Albumin 2.1 L Globulin 3.2 Albumin/Globulin Ratio 0.6 L Assessment/Plan (1) Acute respiratory failure Current Visit: Yes Status: Acute Comment: worsening bilateral infiltrate consistent with pulmonary edema Continue BiPAP IV Lasix Continue high-dose steroids Continue IV antibiotics hematology follow-up for thrombocytopenia Attending/Attestation - Attestation I have personally seen and examined this patient.: Yes I have fully participated in the care of the patient.: Yes I have reviewed all pertinent clinical information: Yes Notes (Text): 04/14/17 17:31 I have seen and examined the patient. Medical records, lab studies, and imaging were reviewed by me and a management plan was formulated on multidisciplinary rounds with resident Dr. Patel. I agree with their documented assessment and plan. 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 While on vent she started to become bradycardic, she then went into PEA arrest. ACLS protocol initiated, but unsuccessful, patient was pronounced at 1621. Critical Care Time 35 minutes. Multi-disciplinary rounds were performed with house staff, nursing, speech therapy, respiratory therapy, pharmacy and nutrition with integrated input from the primary team/attending and other consulting services. The documented time is cumulative and includes review of patient data/exams/labs/chart review and examination of the patient on rounds and throughout the day; time is exclusive of any procedures or teaching time.
--- NOTE | 2017-04-14 17:23 | PCM.RRT ---
HOSPITAL STAFF PHARMACIST Nurses Assessment - Situation Date: 04/14/17 Time HOSPITAL STAFF PHARMACIST was called: 16:01 HOSPITAL STAFF PHARMACIST Responder Arrival Time:: 16:01 HOSPITAL STAFF PHARMACIST Location:: 9I ICU New IV Insertion Tolerance: Good - Ventilator Settings Mode: PRVC Ventilator Respiratory Rate Settin Ventilator Tidal Volume Settin PEEP/CPAP (cm H2O): 8 SAO2 %: 99 FIO2 (% Oxygen): 80 I.Reason for HOSPITAL STAFF PHARMACIST - A) Acute Change in Patient: Subjective: Neal melgar was called at 16:01 for PEA. Upon arrival patient's BP was 49/34 and pulse was unable to be palpated. Chest compressions and bag ventilation was started at 16:01 and 1 mg epinephrine given. Blood was noted coming out of the ET tube after compressions initiated. The following were given during the code blue: 16:04: 1 mg of epinephrine IVP given 16:07: Asystole noted on EKG. 1 mg of epinephrine IVP given 16:09: 1 amp of sodium bicarbonate given 16:10: 1 mg of epinephrine IVP given 16:12: 1 amp of sodium bicarbonate given 16:13: PEA noted on EKG. 1 mg of epinephrine IVP given 16:15: 1 amp of sodium bicarbonate given 16:16: 1 amp of calcium carbonate given 16:17: 1 mg of epinephrine IVP given 16:20: 1 mg of epinephrine IVP given Time of called at 16:[address] Wolff. - Constitutional Appears: Chronically Ill - Head Head Exam: NORMAL INSPECTION - Eyes Eye Exam: absent: PERRL Additional Comments: pupils fixed and dilated - Neurological Exam Neurological Exam: absent: Alert, Awake
[2017-04-14 17:26] VITALS: BP 49/34; PULSE 69; RESP 14
--- NOTE | 2017-04-14 17:52 | CP.PCM.PRO ---
Pronouncement of Note - Clinical Findings Physical Exam: No Response Verbal/Painful Stimuli, Absent Peripheral Pulses{ Carotid & Femoral}, Absent Heart & Breath Sounds, No Pupillary Light Reflex, No Corneal Reflex, Pupils Fixed & Dilated, Absence of Vital Signs - Pronouncement Time Time of Pronouncement of : 16:21 - Notifications Pronouncement Notifications: Family Notified, Atending Notified Machine Operator Slitter Technician Notified: No - Autopsy Autopsy Requested: No - [place] [id number]
[2017-04-18 00:18] LABS: SOURCE BLOOD
--- NOTE | 2017-04-21 06:38 | DS ---
SUMMARY: Patient admitted to the hospital with chief complaint of weakness, fatigue, shortness of breath, swelling of lower extremity, extreme body weakness and pain. Patient had end-stage lupus. Patient admitted to ICU; placed on steroids, diuretics, antibiotic. Patient transferred to the floor. Patient developed pneumonia, transferred to ICU and started on steroids, intubated. Long discussion with family and Communication Specialist to treat the patient's immune thrombocytopenia. Patient was started on Cytoxan. Patient . FINAL DIAGNOSIS: respiratory failure, sepsis, pneumonia. Marah Pillai MD
== END 2017-04-14 18:50 | DRG 870 ==
LOC: C.ER 23:41 → C.9I 03-20 03:31 → C.6T 03-24 16:20 → C.9I 03-29 10:41
PROVIDERS: ADMIT Internal Medicine Pulmonary Disease; ATTEND Internal Medicine Pulmonary Disease
PROC: 02HV33Z Insertion of Infusion Device into Superior Vena Cava, Percutaneous Approach (ICD-10-PCS; 2017-03-20)
PROC: B548ZZA Ultrasonography of Superior Vena Cava, Guidance (ICD-10-PCS; 2017-03-20)
PROC: 5A1955Z Respiratory Ventilation, Greater than 96 Consecutive Hours (ICD-10-PCS; principal; 2017-03-31)
PROC: 0BH17EZ Insertion of Endotracheal Airway into Trachea, Via Natural or Artificial Opening (ICD-10-PCS; 2017-03-31)
PROC: 07DR3ZX Extraction of Iliac Bone Marrow, Percutaneous Approach, Diagnostic (ICD-10-PCS; 2017-04-04)
PROC: 30233R1 Transfusion of Nonautologous Platelets into Peripheral Vein, Percutaneous Approach (ICD-10-PCS; 2017-04-05)
PROC: 05HY33Z Insertion of Infusion Device into Upper Vein, Percutaneous Approach (ICD-10-PCS; 2017-04-09)
PROC: 5A1945Z Respiratory Ventilation, 24-96 Consecutive Hours (ICD-10-PCS; 2017-04-13)
PROC: 0BH17EZ Insertion of Endotracheal Airway into Trachea, Via Natural or Artificial Opening (ICD-10-PCS; 2017-04-13)
DX: A41.9 Sepsis, unspecified organism (principal); J96.01 Acute respiratory failure with hypoxia; I63.9 Cerebral infarction, unspecified; J18.9 Pneumonia, unspecified organism; D61.818 Other pancytopenia; D69.3 Immune thrombocytopenic purpura; E87.4 Mixed disorder of acid-base balance; L89.159 Pressure ulcer of sacral region, unspecified stage; M47.12 Other spondylosis with myelopathy, cervical region; I50.32 Chronic diastolic (congestive) heart failure; I24.8 Other forms of acute ischemic heart disease; D58.9 Hereditary hemolytic anemia, unspecified; D68.9 Coagulation defect, unspecified; E87.1 Hypo-osmolality and hyponatremia; M47.16 Other spondylosis with myelopathy, lumbar region; M35.1 Other overlap syndromes; L03.116 Cellulitis of left lower limb; L03.115 Cellulitis of right lower limb; G83.4 Cauda equina syndrome; I11.0 Hypertensive heart disease with heart failure; I27.20 Pulmonary hypertension, unspecified; E86.0 Dehydration; R65.20 Severe sepsis without septic shock; D63.8 Anemia in other chronic diseases classified elsewhere; E16.2 Hypoglycemia, unspecified; M32.13 Lung involvement in systemic lupus erythematosus; G62.9 Polyneuropathy, unspecified; I87.2 Venous insufficiency (chronic) (peripheral); M06.9 Rheumatoid arthritis, unspecified; M32.9 Systemic lupus erythematosus, unspecified; M34.9 Systemic sclerosis, unspecified; M48.04 Spinal stenosis, thoracic region; Z86.73 Personal history of transient ischemic attack (TIA), and cerebral infarction without residual deficits; Z87.891 Personal history of nicotine dependence